=== PATIENT | male | born 1965 | race Caucasian/White ===

== ENCOUNTER 2017-03-04 19:39 | Inpatient (IN) | payer MEDICAID ==
[2017-03-04] MEDS ORDERED: Sodium Chloride 0.9% 1,000 ML IV ONE (19:59)
[2017-03-04 20:01] LABS: BASO % 0.2 % (0.0-2.0); EOS % 0.1 % (0.0-4.0); HEMATOCRIT 21.4 % (35.0-51.0); LYMPH # 1.1 K/uL (1.0-4.3); LYMPH % 10.1 % (20.0-40.0); MEAN CELL VOLUME 92.2 fL (80.0-94.0); MEAN CORPUSCULAR HEMOGLOBIN 29.6 pg (27.0-31.0); MEAN CORPUSCULAR HGB CONC 32.1 g/dL (33.0-37.0); MEAN PLATELET VOLUME 8.9 fL (7.2-11.7); MONO # 0.7 K/uL (0.0-0.8); MONO % 6.6 % (0.0-10.0); NRBC % 0.1 % (0.0-2.0); RED CELL DISTRIBUTION WIDTH 15.6 % (11.5-14.5); WHITE BLOOD COUNT 10.5 K/uL (4.8-10.8)
[2017-03-04] MEDS ORDERED: (Novolin R) Insulin Human Regular 100 units/ml vial IV STA (20:01)
[2017-03-04 20:07] LABS: INR 1.4
[2017-03-04 20:08] LABS: RBC URINE 15 /hpf (0-3); URINE BACTERIA RARE (<OCC); URINE BILIRUBIN NEGATIVE (NEGATIVE); URINE BLOOD 1+ (NEGATIVE); URINE COLOR Yellow (YELLOW); URINE GLUCOSE (UA) 1+ mg/dL (Normal); URINE KETONE NEGATIVE (NEGATIVE); URINE LEUKOCYTE ESTERASE NEG Leu/uL (Negative); URINE PROTEIN NEGATIVE (NEGATIVE); URINE UROBILINOGEN NORMAL mg/dL (0.2-1.0); WBC URINE 12 /hpf (0-5)
[2017-03-04 20:09] LABS: POTASSIUM 5.4 mmol/L (3.6-5.2)
[2017-03-04] MEDS ORDERED: (Novolin R) Insulin Human Regular 100 units/ml vial ONE (20:10)
[2017-03-04 20:11] LABS: BILIRUBIN,TOTAL 0.6 mg/dL (0.2-1.3)
[2017-03-04 20:12] LABS: ALB/GLOB RATIO 0.8 (1.0-2.1); CALCIUM 8.2 mg/dl (8.6-10.4); TOTAL PROTEIN 7.7 g/dL (6.3-8.3)
[2017-03-04 20:28] LABS: MAGNESIUM 1.8 mg/dL (1.6-2.3)
--- NOTE | 2017-03-04 20:37 | C.PDOC ---
History Of Present Illness 53 year old male presents to the ED via EMS for evaluation of shortness of breath which began earlier today. As per EMS, patient called 911 complaining of shortness of breath. Upon medic arrival, patient appeared pale, diaphoretic and collapsed unresponsive in his hallway. Patient's initial rhythm was asystole. Medics performed CPR for 15 minutes and and patient was given three doses of epinephrine intravenously. Patient had return of circulation and his heart rate and blood pressure have been stable since. He remains unresponsive and apneic. He was orally intubated in the field. Additional history limited secondary to patient's critical condition. Patient's past medical/surgical history is unknown at this time. Time Seen by Provider: 03/04/17 19:56 Chief Complaint (Nursing): Cardiac Arrest History Per: EMS Reason For Code Blue: Other (Cardiac Arrest) Circumstances: Brought To ED By EMS Arrest Witnessed By: Other (EMS) CPR Initiated Prior To MD Arrival?: Yes Down-Time Before ACLS: Mins Treatment Initiated Prior To MD Arrival: Yes: CPR, Intubation, IV Access Medications Given Prior To MD Arrival: Yes: Epinephrine - Initial Findings Respirations: Normal Pulse: Strong Rhythm: Sinus Rhythm Past Medical History Reviewed: Historical Data, Nursing Documentation, Vital Signs Vital Signs: Last Vital Signs Temp 93.6 F L 03/04/17 21:42 Pulse 84 03/04/17 21:42 Resp 16 03/04/17 21:42 BP 86/58 L 03/04/17 21:42 Pulse Ox 100 03/04/17 21:52 Family History: States: Unknown Family Hx - Social History Hx Alcohol Use: No Hx Substance Use: No Review Of Systems Review Of Systems: ROS cannot be obtained secondary to pt's inabilty to answer questions. 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 ) ECG Interpretation: Abnormal Interpretation Of ECG: Second EKG done 90 minutes later is unchanged. O2 Sat by Pulse Oximetry: 100 (on RA) Pulse Ox Interpretation: Normal - Radiology CXR: Interpreted by Me CXR Interpretation: Yes: Other (ARDS bilateral patchcy infiltrates) - CT Scan/US CT Head Other Rad Studies (CT/US): Interpreted By Me, Read By Radiologist, Radiology Report Reviewed CT/US Interpretation: EXAM: CT Head Without Intravenous Contrast. CLINICAL HISTORY: 53 years old, male; Signs and symptoms; Coma or unconsciousness; Additional info: Altered mental. status. TECHNIQUE: Axial computed tomography images of the head/brain without intravenous contrast. All CT scans at. this facility use one or more dose reduction techniques, viz.: automated exposure control; ma/kV. adjustment per patient size (including targeted exams where dose is matched to indication; i.e. head);. or iterative reconstruction technique. COMPARISON: No relevant prior studies available. FINDINGS: Brain : The study is limited by motion. No CT evidence of a large territory acute infarction. There are. mild patchy and confluent periventricular and subcortical foci of white matter hypodensity which are. nonspecific and may represent sequela of chronic white matter microvascular ischemic disease.No. acute hemorrhage. Ventricles: No hydrocephalus. Bones/joints: No suspicious focal osseous abnormality. No acute fracture. Sinuses: No acute finding. Mastoid air cells: No acute finding. IMPRESSION: Limited study by motion. No acute hemorrhage. No CT evidence of large territory acute infarction. Chronic white matter microvascular ischemic changes. If there is focal neurological deficits, short. interval followup CT brain is recommended. Progress Note: Bloodwork, CT Head, CXR, EKG, and UA ordered and reviewed. Reevaluation Time: 21:39 Reassessment Condition: Unchanged (Patient remains unresponsive and is having intermittent clonic spasms.) - Physician Consult Information Outcome Of Conversation: Case discussed with Dr Malloy and Dr Dowd. Consideration for hypothermic protocol in question due to possibility of sepsis in this patient. Unsure as to the cause of his arrest. Cultures done and antibiotics administered. Transfusion held at this time per Dr Malloy. Disposition - Disposition Disposition: HOSPITALIZED Disposition Time: 21:46 Condition: CRITICAL - Clinical Impression Clinical Impression: Cardiac arrest, Respiratory failure, Open wound of right foot with complication Critical Care Time - Critical Care Note Total Time (in mins): 90 Documented critical care: time excludes all time spent performing seperately billable procedures. - Scribe Statement The provider has reviewed the documentation as recorded by the Scribe (Concha English) Provider Attestation: All medical record entries made by the Scribe were at my direction and personally dictated by me. I have reviewed the chart and agree that the record accurately reflects my personal performance of the history, physical exam, medical decision making, and the department course for this patient. I have also personally directed, reviewed, and agree with the discharge instructions and disposition.
[2017-03-04 21:10] LABS: ABG ALLEN TEST UNABLE; ABG MECHANICAL RATE 14; ARTERIAL BLOOD GAS MODE A/C; ATERIAL BLOOD GAS PEEP 5; DRAW SITE RR
[2017-03-04] MEDS ORDERED: Sodium Bicarbonate (8.4%) 50 Meq Syringe IVP ONE (21:16)
[2017-03-04] MEDS ORDERED: Sodium Bicarbonate (8.4%) 50 Meq Syringe ONE (21:17)
[2017-03-04] MEDS ORDERED: Sod Polystyrene Sulf 15 gm/60 ml Susp PO ONE (21:22)
--- NOTE | 2017-03-04 21:23 | CP.PCM.HP ---
<Jonatan Vásquezssyca JoesphJohn - Last Filed: 03/04/17 23:17> History of Present Illness - History of Present Illness History of Present Illness: HPI: 53 year old male presents to the ED per ER physician via EMS for shortness of breath which began earlier today. Per ER physician patient called 911 and stated he was having difficulty breathing. Upon medic arrival, patient appeared pale, diaphoretic and collapsed unresponsive in his hallway. Patient's initial rhythm was asystole. Medics performed CPR for 15 minutes and and patient was given three doses of epinephrine intravenously. Patient had return of circulation and his heart rate and blood pressure have been stable since. He was orally intubated in the field and an IO line was placed. Additional history limited secondary to patient's critical condition. Patient's past medical/surgical history is unknown at this time. 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) Review of Systems - Review of Systems Systems not reviewed;Unavailable: Unstable Vital Signs, Intubated Past Patient History - Past Social History Smoking Status: UNKNOWN - PSYCHIATRIC Hx Substance Use: No - SURGICAL HISTORY Hx Surgeries: (UNABLE TO OBTAIN) - ANESTHESIA Hx Anesthesia: (UNABLE TO OBTAIN) Meds Allergies/Adverse Reactions: Allergies Allergy/AdvReac Type Severity Reaction Status Date / Time Unobtainable Allergy Verified 03/04/17 20:17 Physical Exam - Constitutional Appears: In Acute Distress, Other (intubated) - Head Exam Head Exam: ATRAUMATIC, NORMAL INSPECTION, NORMOCEPHALIC - Eye Exam Pupil Exam: Fixed - ENT Exam ENT Exam: Mucous Membranes Dry - Respiratory Exam Respiratory Exam: Decreased Breath Sounds Additional comments: Intubated - Cardiovascular Exam Cardiovascular Exam: REGULAR RHYTHM, +S1, +S2 - GI/Abdominal Exam GI & Abdominal Exam: Hypoactive Bowel Sounds, Soft - Extremities Exam Additional comments: 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 - Skin Additional comments: 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 Results - Vital Signs Recent Vital Signs: Last Vital Signs Temp 95.9 F L 03/04/17 21:01 Pulse 94 H 03/04/17 21:01 Resp 18 03/04/17 21:01 BP 94/60 L 03/04/17 21:01 Pulse Ox 100 03/04/17 21:17 - Labs Result Diagrams: 03/04/17 19:55 03/04/17 19:55 Labs: Laboratory Results - last 24 hr 03/04/17 03/04/17 03/04/17 19:43 19:55 19:55 WBC 10.5 RBC 2.32 L Hgb 6.9 L Hct 21.4 L MCV 92.2 MCH 29.6 MCHC 32.1 L RDW 15.6 H Plt Count 223 MPV 8.9 Neut % (Auto) 83.0 H Lymph % (Auto) 10.1 L Coke % (Auto) 6.6 Eos % (Auto) 0.1 Baso % (Auto) 0.2 Neut # 8.8 H Lymph # 1.1 Coke # 0.7 Eos # 0.0 Baso # 0.0 PT 15.6 H INR 1.4 APTT 31 Puncture Site pCO2 pO2 HCO3 ABG pH ABG Total CO2 ABG O2 Saturation ABG Base Excess Reji Test ABG Potassium A-a O2 Difference Respiratory Index Glucose Lactate Vent Mode Mechanical Rate FiO2 Tidal Volume PEEP Crit Value Called To Crit Value Called By Crit Value Read Back Blood Gas Notified Time Sodium Potassium Chloride Carbon Dioxide Anion Gap BUN Creatinine Est GFR ( Amer) Est GFR (Non-Af Amer) POC Glucose (mg/dL) 400 H* Random Glucose Calcium Magnesium Total Bilirubin AST ALT Alkaline Phosphatase Total Creatine Kinase CK-MB (Mass) Troponin I, Quant NT-Pro-B Natriuret Pep Total Protein Albumin Globulin Albumin/Globulin Ratio Arterial Blood Potassium Urine Color Urine Clarity Urine pH Ur Specific [place] Urine Protein Urine Glucose (UA) Urine Ketones Urine Blood Urine Nitrate Urine Bilirubin Urine Urobilinogen Ur Leukocyte Esterase Urine WBC (Auto) Urine RBC (Auto) Urine Bacteria Urine Opiates Screen Urine Methadone Screen Ur Barbiturates Screen Ur Phencyclidine Scrn Ur Amphetamines Screen U Benzodiazepines Scrn U Oth Cocaine Metabols U Cannabinoids Screen Alcohol, Quantitative Blood Type Blood Type Confirm Antibody Screen 03/04/17 03/04/17 03/04/17 19:55 20:00 20:00 WBC RBC Hgb Hct MCV MCH MCHC RDW Plt Count MPV Neut % (Auto) Lymph % (Auto) Coke % (Auto) Eos % (Auto) Baso % (Auto) Neut # Lymph # Coke # Eos # Baso # PT INR APTT Puncture Site pCO2 pO2 HCO3 ABG pH ABG Total CO2 ABG O2 Saturation ABG Base Excess Reji Test ABG Potassium A-a O2 Difference Respiratory Index Glucose Lactate Vent Mode Mechanical Rate FiO2 Tidal Volume PEEP Crit Value Called To Crit Value Called By Crit Value Read Back Blood Gas Notified Time Sodium 130 L Potassium 5.4 H Chloride 98 Carbon Dioxide 13 L Anion Gap 24 H BUN 45 H Creatinine 2.7 H Est GFR ( Amer) 30 Est GFR (Non-Af Amer) 25 POC Glucose (mg/dL) Random Glucose 346 H Calcium 8.2 L Magnesium Total Bilirubin 0.6 AST 290 H ALT 130 H Alkaline Phosphatase 99 Total Creatine Kinase 122 CK-MB (Mass) 1.25 Troponin I, Quant 0.1990 H* NT-Pro-B Natriuret Pep 73431 H Total Protein 7.7 Albumin 3.4 L Globulin 4.3 H Albumin/Globulin Ratio 0.8 L Arterial Blood Potassium Urine Color Yellow Urine Clarity Hazy Urine pH 5.0 Ur Specific [place] 1.013 Urine Protein Negative Urine Glucose (UA) 1+ H Urine Ketones Negative Urine Blood 1+ H Urine Nitrate Negative Urine Bilirubin Negative Urine Urobilinogen Normal Ur Leukocyte Esterase Neg Urine WBC (Auto) 12 H Urine RBC (Auto) 15 H Urine Bacteria Rare Urine Opiates Screen Negative Urine Methadone Screen Negative Ur Barbiturates Screen Negative Ur Phencyclidine Scrn Negative Ur Amphetamines Screen Negative U Benzodiazepines Scrn Negative U Oth Cocaine Metabols Negative U Cannabinoids Screen Negative Alcohol, Quantitative Blood Type Blood Type Confirm Antibody Screen 03/04/17 03/04/17 03/04/17 20:12 20:15 20:25 WBC RBC Hgb Hct MCV MCH MCHC RDW Plt Count MPV Neut % (Auto) Lymph % (Auto) Coke % (Auto) Eos % (Auto) Baso % (Auto) Neut # Lymph # Coke # Eos # Baso # PT INR APTT Puncture Site pCO2 pO2 HCO3 ABG pH ABG Total CO2 ABG O2 Saturation ABG Base Excess Reji Test ABG Potassium A-a O2 Difference Respiratory Index Glucose Lactate Vent Mode Mechanical Rate FiO2 Tidal Volume PEEP Crit Value Called To Crit Value Called By Crit Value Read Back Blood Gas Notified Time Sodium Potassium Chloride Carbon Dioxide Anion Gap BUN Creatinine Est GFR ( Amer) Est GFR (Non-Af Amer) POC Glucose (mg/dL) Random Glucose Calcium Magnesium 1.8 Total Bilirubin AST ALT Alkaline Phosphatase Total Creatine Kinase 125 CK-MB (Mass) Troponin I, Quant NT-Pro-B Natriuret Pep Total Protein Albumin Globulin Albumin/Globulin Ratio Arterial Blood Potassium Urine Color Urine Clarity Urine pH Ur Specific [place] Urine Protein Urine Glucose (UA) Urine Ketones Urine Blood Urine Nitrate Urine Bilirubin Urine Urobilinogen Ur Leukocyte Esterase Urine WBC (Auto) Urine RBC (Auto) Urine Bacteria Urine Opiates Screen Urine Methadone Screen Ur Barbiturates Screen Ur Phencyclidine Scrn Ur Amphetamines Screen U Benzodiazepines Scrn U Oth Cocaine Metabols U Cannabinoids Screen Alcohol, Quantitative < 10 Blood Type B POSITIVE Blood Type Confirm B POSITIVE Antibody Screen Negative 03/04/17 03/04/17 20:27 21:07 WBC RBC Hgb Hct MCV MCH MCHC RDW Plt Count MPV Neut % (Auto) Lymph % (Auto) Coke % (Auto) Eos % (Auto) Baso % (Auto) Neut # Lymph # Coke # Eos # Baso # PT INR APTT Puncture Site Rr pCO2 41 pO2 94 HCO3 10.6 L ABG pH 7.06 L* ABG Total CO2 12.9 L ABG O2 Saturation 95.7 ABG Base Excess -18.2 L Reji Test Unable ABG Potassium 5.7 H A-a O2 Difference 568.0 Respiratory Index 6.0 Glucose 280 H Lactate 6.7 H* Vent Mode A/c Mechanical Rate 14 FiO2 100.0 Tidal Volume 500 PEEP 5 Crit Value Called To Dr. joseph Crit Value Called By Aquiles talamantes Crit Value Read Back Y Blood Gas Notified Time 2109 Sodium 132.0 Potassium Chloride 105.0 Carbon Dioxide Anion Gap BUN Creatinine Est GFR ( Amer) Est GFR (Non-Af Amer) POC Glucose (mg/dL) 291 H Random Glucose Calcium Magnesium Total Bilirubin AST ALT Alkaline Phosphatase Total Creatine Kinase CK-MB (Mass) Troponin I, Quant NT-Pro-B Natriuret Pep Total Protein Albumin Globulin Albumin/Globulin Ratio Arterial Blood Potassium 5.7 H Urine Color Urine Clarity Urine pH Ur Specific [place] Urine Protein Urine Glucose (UA) Urine Ketones Urine Blood Urine Nitrate Urine Bilirubin Urine Urobilinogen Ur Leukocyte Esterase Urine WBC (Auto) Urine RBC (Auto) Urine Bacteria Urine Opiates Screen Urine Methadone Screen Ur Barbiturates Screen Ur Phencyclidine Scrn Ur Amphetamines Screen U Benzodiazepines Scrn U Oth Cocaine Metabols U Cannabinoids Screen Alcohol, Quantitative Blood Type Blood Type Confirm Antibody Screen Assessment & Plan - Assessment and Plan (Free Text) Assessment: 1.) Asystole Cardiac Arrest - Admit to ICU - ID vs. PE vs. ARDS - f/u head CT - f/u Chest x-ray - BNP: 66638 - Trop: 0.1990 - f/u NATHALIE x2 2.) CHF exacerbation - f/u chest x-ray - Lasix 40mg IV BID hold if SBP less than 105 - Cardio Consult: Dr. Tate --> help appreciated - f/u ECHO 3.) Sepsis - Zosyn 2.25mg IV Q6 - Vancomycin 500mg Q12 - ID Consult: Dr. Noble --> help appreciated - f/u urine and blood cultures 4.) Renal Failure - Acute vs. Chronic - BUN/Cr: 45/2.7 - Nephrology Consult: Dr. Osorio --> help appreciated - Carbon dioxide: 13 - 1 amp of bicarb - given in the ED - daily weights 5.) Altered Mental Status - Neurology Consult: Dr. Rascon --> help appreciated - f/u Head CT - Neuro Checks q1 6.) Acute Anemia - H/H: 6.9/21.4 - Type and Screen - Hold transfusion per ICU attending 7.) Hyperkalemia - K 5.4 - Kayexalte 15gm PO once 8.) Prophylaxis - Protonix 40mg IV daily - Heparin 5,000SC q12 once head CT is cleared - Accuchecks <Noemí BARRAZA,Aristides - Last Filed: 03/05/17 09:05> Results - Vital Signs Recent Vital Signs: Last Vital Signs Temp 95.6 F L 03/05/17 05:05 Pulse 111 H 03/05/17 08:07 Resp 25 H 03/05/17 08:07 BP 132/71 03/05/17 08:08 Pulse Ox 84 L 03/05/17 08:07 - Labs Result Diagrams: 03/04/17 19:55 03/04/17 19:55 Labs: Laboratory Results - last 24 hr 03/04/17 03/04/17 03/04/17 19:43 19:55 19:55 WBC 10.5 RBC 2.32 L Hgb 6.9 L Hct 21.4 L MCV 92.2 MCH 29.6 MCHC 32.1 L RDW 15.6 H Plt Count 223 MPV 8.9 Neut % (Auto) 83.0 H Lymph % (Auto) 10.1 L Coke % (Auto) 6.6 Eos % (Auto) 0.1 Baso % (Auto) 0.2 Neut # 8.8 H Lymph # 1.1 Coke # 0.7 Eos # 0.0 Baso # 0.0 PT 15.6 H INR 1.4 APTT 31 Puncture Site pCO2 pO2 HCO3 ABG pH ABG Total CO2 ABG O2 Saturation ABG Base Excess ABG Hemoglobin ABG Carboxyhemoglobin POC ABG HHb (Measured) ABG Methemoglobin Reji Test ABG Potassium A-a O2 Difference Respiratory Index Hgb O2 Saturation Glucose Lactate Vent Mode Mechanical Rate FiO2 Tidal Volume PEEP Crit Value Called To Crit Value Called By Crit Value Read Back Blood Gas Notified Time Sodium Potassium Chloride Carbon Dioxide Anion Gap BUN Creatinine Est GFR ( Amer) Est GFR (Non-Af Amer) POC Glucose (mg/dL) 400 H* Random Glucose Lactic Acid Calcium Magnesium Total Bilirubin AST ALT Alkaline Phosphatase Total Creatine Kinase CK-MB (Mass) Troponin I Troponin I, Quant NT-Pro-B Natriuret Pep Total Protein Albumin Globulin Albumin/Globulin Ratio Arterial Blood Potassium Urine Color Urine Clarity Urine pH Ur Specific [place] Urine Protein Urine Glucose (UA) Urine Ketones Urine Blood Urine Nitrate Urine Bilirubin Urine Urobilinogen Ur Leukocyte Esterase Urine WBC (Auto) Urine RBC (Auto) Urine Bacteria Urine Opiates Screen Urine Methadone Screen Ur Barbiturates Screen Ur Phencyclidine Scrn Ur Amphetamines Screen U Benzodiazepines Scrn U Oth Cocaine Metabols U Cannabinoids Screen Alcohol, Quantitative Blood Type Blood Type Confirm Antibody Screen 03/04/17 03/04/17 03/04/17 19:55 20:00 20:00 WBC RBC Hgb Hct MCV MCH MCHC RDW Plt Count MPV Neut % (Auto) Lymph % (Auto) Coke % (Auto) Eos % (Auto) Baso % (Auto) Neut # Lymph # Coke # Eos # Baso # PT INR APTT Puncture Site pCO2 pO2 HCO3 ABG pH ABG Total CO2 ABG O2 Saturation ABG Base Excess ABG Hemoglobin ABG Carboxyhemoglobin POC ABG HHb (Measured) ABG Methemoglobin Reji Test ABG Potassium A-a O2 Difference Respiratory Index Hgb O2 Saturation Glucose Lactate Vent Mode Mechanical Rate FiO2 Tidal Volume PEEP Crit Value Called To Crit Value Called By Crit Value Read Back Blood Gas Notified Time Sodium 130 L Potassium 5.4 H Chloride 98 Carbon Dioxide 13 L Anion Gap 24 H BUN 45 H Creatinine 2.7 H Est GFR ( Amer) 30 Est GFR (Non-Af Amer) 25 POC Glucose (mg/dL) Random Glucose 346 H Lactic Acid Calcium 8.2 L Magnesium Total Bilirubin 0.6 AST 290 H ALT 130 H Alkaline Phosphatase 99 Total Creatine Kinase 122 CK-MB (Mass) 1.25 Troponin I Troponin I, Quant 0.1990 H* NT-Pro-B Natriuret Pep 21420 H Total Protein 7.7 Albumin 3.4 L Globulin 4.3 H Albumin/Globulin Ratio 0.8 L Arterial Blood Potassium Urine Color Yellow Urine Clarity Hazy Urine pH 5.0 Ur Specific [place] 1.013 Urine Protein Negative Urine Glucose (UA) 1+ H Urine Ketones Negative Urine Blood 1+ H Urine Nitrate Negative Urine Bilirubin Negative Urine Urobilinogen Normal Ur Leukocyte Esterase Neg Urine WBC (Auto) 12 H Urine RBC (Auto) 15 H Urine Bacteria Rare Urine Opiates Screen Negative Urine Methadone Screen Negative Ur Barbiturates Screen Negative Ur Phencyclidine Scrn Negative Ur Amphetamines Screen Negative U Benzodiazepines Scrn Negative U Oth Cocaine Metabols Negative U Cannabinoids Screen Negative Alcohol, Quantitative Blood Type Blood Type Confirm Antibody Screen 03/04/17 03/04/17 03/04/17 20:12 20:15 20:25 WBC RBC Hgb Hct MCV MCH MCHC RDW Plt Count MPV Neut % (Auto) Lymph % (Auto) Coke % (Auto) Eos % (Auto) Baso % (Auto) Neut # Lymph # Coke # Eos # Baso # PT INR APTT Puncture Site pCO2 pO2 HCO3 ABG pH ABG Total CO2 ABG O2 Saturation ABG Base Excess ABG Hemoglobin ABG Carboxyhemoglobin POC ABG HHb (Measured) ABG Methemoglobin Reji Test ABG Potassium A-a O2 Difference Respiratory Index Hgb O2 Saturation Glucose Lactate Vent Mode Mechanical Rate FiO2 Tidal Volume PEEP Crit Value Called To Crit Value Called By Crit Value Read Back Blood Gas Notified Time Sodium Potassium Chloride Carbon Dioxide Anion Gap BUN Creatinine Est GFR ( Amer) Est GFR (Non-Af Amer) POC Glucose (mg/dL) Random Glucose Lactic Acid Calcium Magnesium 1.8 Total Bilirubin AST ALT Alkaline Phosphatase Total Creatine Kinase 125 CK-MB (Mass) Troponin I Troponin I, Quant NT-Pro-B Natriuret Pep Total Protein Albumin Globulin Albumin/Globulin Ratio Arterial Blood Potassium Urine Color Urine Clarity Urine pH Ur Specific [place] Urine Protein Urine Glucose (UA) Urine Ketones Urine Blood Urine Nitrate Urine Bilirubin Urine Urobilinogen Ur Leukocyte Esterase Urine WBC (Auto) Urine RBC (Auto) Urine Bacteria Urine Opiates Screen Urine Methadone Screen Ur Barbiturates Screen Ur Phencyclidine Scrn Ur Amphetamines Screen U Benzodiazepines Scrn U Oth Cocaine Metabols U Cannabinoids Screen Alcohol, Quantitative < 10 Blood Type B POSITIVE Blood Type Confirm B POSITIVE Antibody Screen Negative 03/04/17 03/04/17 03/05/17 20:27 21:07 03:00 WBC RBC Hgb Hct MCV MCH MCHC RDW Plt Count MPV Neut % (Auto) Lymph % (Auto) Coke % (Auto) Eos % (Auto) Baso % (Auto) Neut # Lymph # Coke # Eos # Baso # PT INR APTT Puncture Site Rr Rradial pCO2 41 42 pO2 94 46 L HCO3 10.6 L 17.1 L ABG pH 7.06 L* 7.22 L ABG Total CO2 12.9 L 18.5 L ABG O2 Saturation 95.7 78.0 L ABG Base Excess -18.2 L -9.7 L ABG Hemoglobin 6.7 L ABG Carboxyhemoglobin 1.7 H POC ABG HHb (Measured) 21.6 H ABG Methemoglobin 0.3 Reji Test Unable Pos ABG Potassium 5.7 H A-a O2 Difference 568.0 615.0 Respiratory Index 6.0 13.4 Hgb O2 Saturation 76.4 L Glucose 280 H Lactate 6.7 H* Vent Mode A/c Prvc Mechanical Rate 14 20 FiO2 100.0 100.0 Tidal Volume 500 400 PEEP 5 Crit Value Called To Dr. joseph Crit Value Called By Aquiles talamantes Crit Value Read Back Y Blood Gas Notified Time 2109 Sodium 132.0 Potassium Chloride 105.0 Carbon Dioxide Anion Gap BUN Creatinine Est GFR ( Amer) Est GFR (Non-Af Amer) POC Glucose (mg/dL) 291 H Random Glucose Lactic Acid Calcium Magnesium Total Bilirubin AST ALT Alkaline Phosphatase Total Creatine Kinase CK-MB (Mass) Troponin I Troponin I, Quant NT-Pro-B Natriuret Pep Total Protein Albumin Globulin Albumin/Globulin Ratio Arterial Blood Potassium 5.7 H Urine Color Urine Clarity Urine pH Ur Specific [place] Urine Protein Urine Glucose (UA) Urine Ketones Urine Blood Urine Nitrate Urine Bilirubin Urine Urobilinogen Ur Leukocyte Esterase Urine WBC (Auto) Urine RBC (Auto) Urine Bacteria Urine Opiates Screen Urine Methadone Screen Ur Barbiturates Screen Ur Phencyclidine Scrn Ur Amphetamines Screen U Benzodiazepines Scrn U Oth Cocaine Metabols U Cannabinoids Screen Alcohol, Quantitative Blood Type Blood Type Confirm Antibody Screen 03/05/17 03/05/17 03/05/17 06:24 06:51 06:51 WBC RBC Hgb Hct MCV MCH MCHC RDW Plt Count MPV Neut % (Auto) Lymph % (Auto) [place]ke % (Auto) Eos % (Auto) Baso % (Auto) Neut # Lymph # [place]ke # Eos # Baso # PT INR APTT Puncture Site pCO2 pO2 HCO3 ABG pH ABG Total CO2 ABG O2 Saturation ABG Base Excess ABG Hemoglobin ABG Carboxyhemoglobin POC ABG HHb (Measured) ABG Methemoglobin Reji Test ABG Potassium A-a O2 Difference Respiratory Index Hgb O2 Saturation Glucose Lactate Vent Mode Mechanical Rate FiO2 Tidal Volume PEEP Crit Value Called To Crit Value Called By Crit Value Read Back Blood Gas Notified Time Sodium Potassium Chloride Carbon Dioxide Anion Gap BUN Creatinine Est GFR ( Amer) Est GFR (Non-Af Amer) POC Glucose (mg/dL) 388 H Random Glucose Lactic Acid 4.2 H* Calcium Magnesium Total Bilirubin AST ALT Alkaline Phosphatase Total Creatine Kinase CK-MB (Mass) Troponin I 0.3180 H* Troponin I, Quant NT-Pro-B Natriuret Pep Total Protein Albumin Globulin Albumin/Globulin Ratio Arterial Blood Potassium Urine Color Urine Clarity Urine pH Ur Specific [place] Urine Protein Urine Glucose (UA) Urine Ketones Urine Blood Urine Nitrate Urine Bilirubin Urine Urobilinogen Ur Leukocyte Esterase Urine WBC (Auto) Urine RBC (Auto) Urine Bacteria Urine Opiates Screen Urine Methadone Screen Ur Barbiturates Screen Ur Phencyclidine Scrn Ur Amphetamines Screen U Benzodiazepines Scrn U Oth Cocaine Metabols U Cannabinoids Screen Alcohol, Quantitative Blood Type Blood Type Confirm Antibody Screen Attending/Attestation - Attestation I have personally seen and examined this patient.: Yes I have fully participated in the care of the patient.: Yes I have reviewed all pertinent clinical information: Yes Notes (Text): -I agree with the above H&P completed by the resident physician with the following additions and/or changes: HPI: The patient is a 52 year old man with a history of NIDDM and HTN who reportedly called EMS himself after developing sudden shortness of breath this evening. Upon arrival of EMS, the patient collapsed into asystolic cardiac arrest, requiring intubation and ACLS protocol in the field. After receiving three doses of epinephrine and being coded for approximately 10-15 minutes in the field, he regained pulses. However, since ROSC, he has remained unresponsive. In the ED, he was noted to be hypothermic, with an elevated WBC, blood glucose lactic acid, serum creatinine and troponin. He was also noted to have a hemoglobin of 6.9 (with no overt signs of bleeding on examination). CXR shows evidence of marked pulmonary edema and congestion and the patient also appears to have an acute left great toe infection. CT-head was negative for acute bleed. After placement of a right femoral venous line by the vehicle fuel systems converter, a hypothermia protocol was initiated. The patient's close friends and roommate arrived at bedside but have limited knowledge regarding the patient's past medical history (except that he was recently [place] [facility] [place]). A few hours after arrival to the ICU, he coded twice more (PEA) and became hypotensive (requiring both Levophed and Dopamine drips). The nature of the patient's critical condition and likely poor prognosis were explained to the family. The patient will be admitted to the ICU at this time with the following acute medical issues listed below. Impression: 1. Asystolic Cardiac Arrest (ddx: ID vs PE) 2. Sepsis Shock (possibly due to left great toe infection) 3. AMS/Unresponsive (post arrest)(ddx: anoxic brain injury vs CVA vs status epilepticus) 4. Renal Failure (acute vs chronic vs acute on chronic) 5. Acute Pulmonary Edema/Congestion 6. Severe Normocytic Anemia 7. Increased Anion Gap Metabolic Acidosis (due to combination of sepsis and/or possible DKA) 8. Hyperglycemia (possible DKA; although ketones were negative on initial UA) 9. Left Great Toe Infection Plan: -empiric IV Zosyn/Vanco (renally dosed) -1unit PRBC tranfusion -Levophed and Dopamine drips -monitor serial trop's and EKG's -2D-echo ordered -bicarbonate drip -blood and urine cultures and procalcitonin level -hypothermia protocol -hourly neuro checks -high-dose Insulin sliding scale (with frequent accu-checks) -empiric IV Keppra -serial ABG's -IV Lasix 40mg Q12hrs (with strict I/O's) -wound care consult for great toe infection management -Protonix and Heparin SC for GI and DVT prophylaxes, respectively -cardiology, I.D., nephrology and neurology have all been consulted 03/05/17 09:05
[2017-03-04] MEDS ORDERED: Vancomycin 1 GM 1 GM/250 ML BAG IVPB ONE (21:35)
[2017-03-04] MEDS: Vancomycin 500mg/D5W 100 ml 500 MG/100 ML BAG IVPB SCH (21:39)
[2017-03-04] MEDS ORDERED: Sod Polystyrene Sulf 15 gm/60 ml Susp ONE (21:47)
[2017-03-04] MEDS ORDERED: Sodium Bicarbonate (8.4%) 50 Meq Syringe IV ONE (23:03)
--- NOTE | 2017-03-04 23:33 | CP.PCM.CON ---
History of Present Illness - History of Present Illness History of Present Illness: PCP: Unknown Reason for Consult: Critical care management Chief complaint: Cardiac Arrest HPI: The hx is obtained from The patient's Sister in Law and after review of the medical records. He is a 52 years old male who lives alone has hx of DM II; Kidney problems HTN, and Recently Discharged from the [facility]. He was brought to the ED after he collapsed with cardiac arrest in Asystole at his home. Apparently he called 911 because he was having difficulty to breath. On their arrival, he opened the door, pale, diaphoretic and collapsed with cardiac arrest inn Asystole. CPR for 15 minutes with 3 doses of Epinephrine was given before Return of circulation. He was intubated on the field and an Interosseos line was placed at the left Tibia. In the ED his Temperature was 94.9F with a pH of 7.06 and lactate of 6.7 with Bicarbonate 10. PMH: HTN; DM II; Kidney disease; MRSA +ve( Narse ?) PSH: Right great toe amputation SH: No illegal drug use; No Alcohol; No Smoking of cigarettes; Live alone; Unemployed FH: Unknown family history Allergies: Unobtainable Review of Systems - Review of Systems Systems not reviewed;Unavailable: Respiratory Distress, Intubated Review of Systems: Review of systems limited because the patient in unconscious. Past Patient History - Past Social History Smoking Status: UNKNOWN Chewing Tobacco Use: No Cigar Use: No Alcohol: None Drugs: Denies Home Situation {Lives}: Alone - CARDIAC Hx Hypertension: Yes - PULMONARY Hx Respiratory Disorders: No - NEUROLOGICAL Hx Neurological Disorder: No - HEENT Hx HEENT Problems: No - RENAL Hx Chronic Kidney Disease: Yes Hx Renal Failure: Yes - ENDOCRINE/METABOLIC Hx Endocrine Disorders: Yes Hx Diabetes Mellitus Type 2: Yes - INTEGUMENTARY Hx Dermatological Problems: Yes - MUSCULOSKELETAL/RHEUMATOLOGICAL Hx Musculoskeletal Disorders: No - GASTROINTESTINAL Hx Gastrointestinal Disorders: No - GENITOURINARY/GYNECOLOGICAL Hx Genitourinary Disorders: No - PSYCHIATRIC Hx Substance Use: No - SURGICAL HISTORY Other/Comment: Great toe left foot amputated - ANESTHESIA Hx Anesthesia: Yes (UNABLE TO OBTAIN) Hx Anesthesia Reactions: No Meds Allergies/Adverse Reactions: Allergies Allergy/AdvReac Type Severity Reaction Status Date / Time Unobtainable Allergy Verified 03/04/17 20:17 - Medications Medications: Current Medications Furosemide (Lasix) 40 mg IVP BID [facility] Piperacillin Sod/Tazobactam Sod (Zosyn 2.25 Gm Iv Premix) 2.25 gm in 50 mls @ 100 mls/hr IVPB Q6H [facility] Vancomycin HCl/Dextrose (Vancocin) 500 mg in 100 mls @ 166.6 mls/hr IVPB Q12H [facility] Stop: 03/09/17 22:31 Last Admin: 03/04/17 21:39 Dose: 166.6 mls/hr Pantoprazole Sodium (Protonix Inj) 40 mg IVP DAILY [facility] Physical Exam - Constitutional Appears: In Acute Distress Additional comments: Intubated - Head Exam Head Exam: ATRAUMATIC, NORMAL INSPECTION, NORMOCEPHALIC - Eye Exam Eye Exam: Normal appearance - ENT Exam ENT Exam: Mucous Membranes Moist, Normal External Ear Exam - Neck Exam Neck exam: Negative for: Lymphadenopathy, Meningismus, Thyromegaly - Respiratory Exam Respiratory Exam: Rales, Rhonchi. absent: Wheezes Additional comments: Rales in whole of both lung shen - Cardiovascular Exam Cardiovascular Exam: REGULAR RHYTHM, +S1, +S2 - GI/Abdominal Exam GI & Abdominal Exam: Normal Bowel Sounds, Soft Additional comments: Full, soft decreased bowel sounds. - Rectal Exam Rectal Exam: Deferred - Extremities Exam Additional comments: Left great toe amputated with surgical wound present. - Back Exam Back exam: NORMAL INSPECTION - Neurological Exam Additional comments: Unresponsive to pain stimuli - Psychiatric Exam Additional comments: Intubated and non-responsive. - Skin Skin Exam: Dry, Pallor Results - Vital Signs Recent Vital Signs: Last Vital Signs Temp 93.6 F L 03/04/17 21:42 Pulse 84 03/04/17 21:42 Resp 16 03/04/17 21:42 BP 86/58 L 03/04/17 21:42 Pulse Ox 100 03/04/17 21:52 - Labs Result Diagrams: 03/04/17 19:55 03/04/17 19:55 Labs: Laboratory Results - last 24 hr 03/04/17 03/04/17 03/04/17 19:43 19:55 19:55 WBC 10.5 RBC 2.32 L Hgb 6.9 L Hct 21.4 L MCV 92.2 MCH 29.6 MCHC 32.1 L RDW 15.6 H Plt Count 223 MPV 8.9 Neut % (Auto) 83.0 H Lymph % (Auto) 10.1 L [place] % (Auto) 6.6 Eos % (Auto) 0.1 Baso % (Auto) 0.2 Neut # 8.8 H Lymph # 1.1 [place] # 0.7 Eos # 0.0 Baso # 0.0 PT 15.6 H INR 1.4 APTT 31 Puncture Site pCO2 pO2 HCO3 ABG pH ABG Total CO2 ABG O2 Saturation ABG Base Excess Reji Test ABG Potassium A-a O2 Difference Respiratory Index Glucose Lactate Vent Mode Mechanical Rate FiO2 Tidal Volume PEEP Crit Value Called To Crit Value Called By Crit Value Read Back Blood Gas Notified Time Sodium Potassium Chloride Carbon Dioxide Anion Gap BUN Creatinine Est GFR ( Amer) Est GFR (Non-Af Amer) POC Glucose (mg/dL) 400 H* Random Glucose Calcium Magnesium Total Bilirubin AST ALT Alkaline Phosphatase Total Creatine Kinase CK-MB (Mass) Troponin I, Quant NT-Pro-B Natriuret Pep Total Protein Albumin Globulin Albumin/Globulin Ratio Arterial Blood Potassium Urine Color Urine Clarity Urine pH Ur Specific [place] Urine Protein Urine Glucose (UA) Urine Ketones Urine Blood Urine Nitrate Urine Bilirubin Urine Urobilinogen Ur Leukocyte Esterase Urine WBC (Auto) Urine RBC (Auto) Urine Bacteria Urine Opiates Screen Urine Methadone Screen Ur Barbiturates Screen Ur Phencyclidine Scrn Ur Amphetamines Screen U Benzodiazepines Scrn U Oth Cocaine Metabols U Cannabinoids Screen Alcohol, Quantitative Blood Type Blood Type Confirm Antibody Screen 03/04/17 03/04/17 03/04/17 19:55 20:00 20:00 WBC RBC Hgb Hct MCV MCH MCHC RDW Plt Count MPV Neut % (Auto) Lymph % (Auto) [place] % (Auto) Eos % (Auto) Baso % (Auto) Neut # Lymph # [place] # Eos # Baso # PT INR APTT Puncture Site pCO2 pO2 HCO3 ABG pH ABG Total CO2 ABG O2 Saturation ABG Base Excess Reji Test ABG Potassium A-a O2 Difference Respiratory Index Glucose Lactate Vent Mode Mechanical Rate FiO2 Tidal Volume PEEP Crit Value Called To Crit Value Called By Crit Value Read Back Blood Gas Notified Time Sodium 130 L Potassium 5.4 H Chloride 98 Carbon Dioxide 13 L Anion Gap 24 H BUN 45 H Creatinine 2.7 H Est GFR ( Amer) 30 Est GFR (Non-Af Amer) 25 POC Glucose (mg/dL) Random Glucose 346 H Calcium 8.2 L Magnesium Total Bilirubin 0.6 AST 290 H ALT 130 H Alkaline Phosphatase 99 Total Creatine Kinase 122 CK-MB (Mass) 1.25 Troponin I, Quant 0.1990 H* NT-Pro-B Natriuret Pep 24658 H Total Protein 7.7 Albumin 3.4 L Globulin 4.3 H Albumin/Globulin Ratio 0.8 L Arterial Blood Potassium Urine Color Yellow Urine Clarity Hazy Urine pH 5.0 Ur Specific [place] 1.013 Urine Protein Negative Urine Glucose (UA) 1+ H Urine Ketones Negative Urine Blood 1+ H Urine Nitrate Negative Urine Bilirubin Negative Urine Urobilinogen Normal Ur Leukocyte Esterase Neg Urine WBC (Auto) 12 H Urine RBC (Auto) 15 H Urine Bacteria Rare Urine Opiates Screen Negative Urine Methadone Screen Negative Ur Barbiturates Screen Negative Ur Phencyclidine Scrn Negative Ur Amphetamines Screen Negative U Benzodiazepines Scrn Negative U Oth Cocaine Metabols Negative U Cannabinoids Screen Negative Alcohol, Quantitative Blood Type Blood Type Confirm Antibody Screen 03/04/17 03/04/17 03/04/17 20:12 20:15 20:25 WBC RBC Hgb Hct MCV MCH MCHC RDW Plt Count MPV Neut % (Auto) Lymph % (Auto) [place] % (Auto) Eos % (Auto) Baso % (Auto) Neut # Lymph # [place] # Eos # Baso # PT INR APTT Puncture Site pCO2 pO2 HCO3 ABG pH ABG Total CO2 ABG O2 Saturation ABG Base Excess Reji Test ABG Potassium A-a O2 Difference Respiratory Index Glucose Lactate Vent Mode Mechanical Rate FiO2 Tidal Volume PEEP Crit Value Called To Crit Value Called By Crit Value Read Back Blood Gas Notified Time Sodium Potassium Chloride Carbon Dioxide Anion Gap BUN Creatinine Est GFR ( Amer) Est GFR (Non-Af Amer) POC Glucose (mg/dL) Random Glucose Calcium Magnesium 1.8 Total Bilirubin AST ALT Alkaline Phosphatase Total Creatine Kinase 125 CK-MB (Mass) Troponin I, Quant NT-Pro-B Natriuret Pep Total Protein Albumin Globulin Albumin/Globulin Ratio Arterial Blood Potassium Urine Color Urine Clarity Urine pH Ur Specific [place] Urine Protein Urine Glucose (UA) Urine Ketones Urine Blood Urine Nitrate Urine Bilirubin Urine Urobilinogen Ur Leukocyte Esterase Urine WBC (Auto) Urine RBC (Auto) Urine Bacteria Urine Opiates Screen Urine Methadone Screen Ur Barbiturates Screen Ur Phencyclidine Scrn Ur Amphetamines Screen U Benzodiazepines Scrn U Oth Cocaine Metabols U Cannabinoids Screen Alcohol, Quantitative < 10 Blood Type B POSITIVE Blood Type Confirm B POSITIVE Antibody Screen Negative 03/04/17 03/04/17 20:27 21:07 WBC RBC Hgb Hct MCV MCH MCHC RDW Plt Count MPV Neut % (Auto) Lymph % (Auto) [place] % (Auto) Eos % (Auto) Baso % (Auto) Neut # Lymph # [place] # Eos # Baso # PT INR APTT Puncture Site Rr pCO2 41 pO2 94 HCO3 10.6 L ABG pH 7.06 L* ABG Total CO2 12.9 L ABG O2 Saturation 95.7 ABG Base Excess -18.2 L Reji Test Unable ABG Potassium 5.7 H A-a O2 Difference 568.0 Respiratory Index 6.0 Glucose 280 H Lactate 6.7 H* Vent Mode A/c Mechanical Rate 14 FiO2 100.0 Tidal Volume 500 PEEP 5 Crit Value Called To Dr. joseph Crit Value Called By Aquiles talamantes Crit Value Read Back Y Blood Gas Notified Time 2109 Sodium 132.0 Potassium Chloride 105.0 Carbon Dioxide Anion Gap BUN Creatinine Est GFR ( Amer) Est GFR (Non-Af Amer) POC Glucose (mg/dL) 291 H Random Glucose Calcium Magnesium Total Bilirubin AST ALT Alkaline Phosphatase Total Creatine Kinase CK-MB (Mass) Troponin I, Quant NT-Pro-B Natriuret Pep Total Protein Albumin Globulin Albumin/Globulin Ratio Arterial Blood Potassium 5.7 H Urine Color Urine Clarity Urine pH Ur Specific [place] Urine Protein Urine Glucose (UA) Urine Ketones Urine Blood Urine Nitrate Urine Bilirubin Urine Urobilinogen Ur Leukocyte Esterase Urine WBC (Auto) Urine RBC (Auto) Urine Bacteria Urine Opiates Screen Urine Methadone Screen Ur Barbiturates Screen Ur Phencyclidine Scrn Ur Amphetamines Screen U Benzodiazepines Scrn U Oth Cocaine Metabols U Cannabinoids Screen Alcohol, Quantitative Blood Type Blood Type Confirm Antibody Screen - Imaging and Cardiology Chest x-ray Status: Image reviewed by me Additional comment: Bilateral interstitial/ Alveolar infiltrate CT scan - head Status: Image reviewed by me, Report reviewed by me Additional comment: No hemorrhage, nor signs of ischemic CVA Assessment & Plan - Assessment and Plan (Free Text) Assessment: #. Cardiac Arrest #. Repiratory Failure #. Pulmonary Edema #. Anemia #. Acute v/s chronic kidney dsease #. DM II #. None healing left great toe amputation Plan: 52 years old male who lives alone has hx of DM II; Kidney problems HTN, and Recently Discharged from the [facility]. He was brought to the ED after he collapsed with cardiac arrest in Asystole at his home. In the Ed His Temp was 94F and he was having frequent muscular spasms. #. Cardiac Arrest. Decision was initially made to begin Hyothermic therapy on the floors but this was cancelled after the patient had Two episodes of Cardiac arrest in Asystole of duration approximately 10minutes each. - Continue Cardiac monitoring and treat Pulmonary edema and respiratory failure - Dopamine and Levophed to maintain MAP above 65 - Consult Neurology #. Repiratory Failure with metabolic acidosis and Lactic acidosis - Mechanical ventilation AC of 20; TV of 400; PEEP of 5 with FiO2 of 1.0 - Bicarbonate Drip #. Sepsis with a qSOFA of 3 with a non healing wound at the left great toe - Wound care - Consult ID - Follow blood culture - Vancomycin - Zosyn #. Pulmonary Edema vs ARDS - Consult Cardiology - Vent settings with low tidal volume 6ml/Kg/min while increasing PEEP as BP tolerates - Grant catheter for Urine output measurement - IV lasix #. Anemia - Transfuse one unit of PRBC - Follow Hb #. Acute v/s chronic kidney disease - Consult Nephrology - Follow Renal labs #. DM II - Regular insulin sliding scale according to accucheck Q6H - HbA1c #. Stress Ulcer Prophylaxis with Pantoprazole #. DVT Prophylaxis with SCD and Heparin Sub Cutaneous #. Code Status: Full Critical care time 50 minutes. - Date & Time Date: 03/04/17 Time: 23:33
--- NOTE | 2017-03-04 23:34 | PCM.PROC ---
Procedures Attestation:: I certify that I have explained the specified Operation(s) or Procedure(s), risks, benefits and reasonable alternatives to the Patient and/or other person responsible. The opportunity was given to ask questions and all questions answered - Central Line Placement Femoral Aseptic technique was employed throughout the procedure: Hand Hygiene done prior to procedure, Full sterile barriers (mask, hair cover, sterile gown, sterile gloves), Full body sterile drape, Chloraprep Antiseptic: 2 minute prep for Femoral CVP Time Out Performed: Yes Pt. Placed on Pulse Ox Monitor: Yes Central Line Prep: Chlorhexidine-Alcohol Combination Local Anesthesia Used: Lidocaine 1% Ultrasound Used for Placement: Yes Central Line Lumen Inserted: triple Post Procedure: Sutured in Place, Good Blood Return, All Ports Aspirated, Flushed, Capped, Sterile Dressing Applied Secured by: Suture Post procedure dressing: Clear vapor permeable Post Procedure X-Ray: No Patient Tolerated Procedure: Well, No Complications (Right Femoral Vein TLC)
[2017-03-05] MEDS ORDERED: Sodium Bicarbonate (8.4%) 50 Meq Syringe IV ONE (00:09)
[2017-03-05 03:19] LABS: ABG ALLEN TEST POS; ABG MECHANICAL RATE 20; ARTERIAL BLOOD GAS MODE PRVC; ARTERIAL BLOOD HGB O2 SAT 76.4 % (95.0-98.0); CARBOXYHEMOGLOBIN 1.7 % (0.5-1.5); DRAW SITE RRADIAL; HHB 21.6 % (0.0-5.0); METHEMOGLOBIN 0.3 % (0.0-3.0)
[2017-03-05] MEDS: levETIRAcetam 500 MG in Sodium Chloride 0.9% 100 ML IVPB SCH ×2 (04:03→14:25)
[2017-03-05] MEDS: Piperacill/Tazo 2.25gm in Dex 2.25 GM/50 ML BAG IVPB SCH ×4 (04:05→22:30)
[2017-03-05] MEDS: DOPamine 400mg/250ml D5W 400 MG/250 ML BAG IV PRN ×2 (07:00→14:45)
[2017-03-05] MEDS: (Novolin R) Insulin Human Regular 100 units/ml vial SC SCH ×4 (07:32→19:00)
--- NOTE | 2017-03-05 08:09 | CT ---
PROCEDURE: CT HEAD WITHOUT CONTRAST. HISTORY: altered mental status COMPARISON: None available. TECHNIQUE: Axial computed tomography images were obtained through the head/brain without intravenous contrast. Radiation dose: Total exam DLP = 988 mGy-cm. This CT exam was performed using one or more of the following dose reduction techniques: Automated exposure control, adjustment of the mA and/or kV according to patient size, and/or use of iterative reconstruction technique. FINDINGS: HEMORRHAGE: No intracranial hemorrhage. BRAIN: Scattered focal lucencies in the subcortical and periventricular white matter suggestive for chronic microvascular ischemic change. VENTRICLES: Unremarkable. No hydrocephalus. CALVARIUM: Unremarkable. PARANASAL SINUSES: Unremarkable as visualized. No significant inflammatory changes. MASTOID AIR CELLS: Unremarkable as visualized. No inflammatory changes. OTHER FINDINGS: Motion artifact limits evaluation. IMPRESSION: Motion artifact limits evaluation. Chronic microvascular ischemic changes. No acute intracranial hemorrhage. If there is focal neurologic deficit, consider further evaluation with MRI. These findings were preliminarily reported at 9:48 p.m. on 03/04/[address] Ada Maldonado from [facility].
[2017-03-05] MEDS ORDERED: Propofol 10 mg/ml 1,000 MG/100 ML VIAL IV PRN (08:18)
[2017-03-05 09:04] LABS: BASO # 0.1 K/uL (0.0-0.2); BASO % 0.4 % (0.0-2.0); HEMATOCRIT 22.9 % (35.0-51.0); LYMPH # 0.4 K/uL (1.0-4.3); LYMPH % 2.1 % (20.0-40.0); MEAN CORPUSCULAR HEMOGLOBIN 30.6 pg (27.0-31.0); MEAN CORPUSCULAR HGB CONC 34.1 g/dL (33.0-37.0); MEAN PLATELET VOLUME 9.4 fL (7.2-11.7); MONO # 0.9 K/uL (0.0-0.8); MONO % 4.6 % (0.0-10.0); PLATELET COUNT 200 K/uL (130-400); RED CELL DISTRIBUTION WIDTH 15.4 % (11.5-14.5)
--- NOTE | 2017-03-05 09:05 | RAD ---
HISTORY: cardiac arrest bed 12 COMPARISON: No prior. FINDINGS: LUNGS: Dense consolidative opacities throughout both lungs suggestive for underlying edema and or infiltrate. Endotracheal tube extending into the mid thoracic trachea. Multiple overlying external tubing and wiring. PLEURA: As above. CARDIOVASCULAR: Cardiomegaly. OSSEOUS STRUCTURES: No significant abnormalities. VISUALIZED UPPER ABDOMEN: Normal. OTHER FINDINGS: None. IMPRESSION: Dense consolidative opacities throughout both lungs suggestive for underlying edema and or infiltrate. Endotracheal tube extending into the mid thoracic trachea. Multiple overlying external tubing and wiring.
[2017-03-05 09:12] LABS: MEAN CELL VOLUME 89.7 fL (80.0-94.0); WHITE BLOOD COUNT 18.6 K/uL (4.8-10.8)
--- NOTE | 2017-03-05 09:14 | RAD ---
HISTORY: Follow up Pulmonary edema/ARDS COMPARISON: 03/04/2017 FINDINGS: LUNGS: Endotracheal tube extending into the midthoracic trachea. NG tube extending into the stomach. Multiple overlying external wires and tubing. Dense consolidative opacifications throughout both lungs suggestive for underlying edema and or infiltrate. PLEURA: As above. CARDIOVASCULAR: Cardiomegaly. OSSEOUS STRUCTURES: No significant abnormalities. VISUALIZED UPPER ABDOMEN: Normal. OTHER FINDINGS: None. IMPRESSION: Endotracheal tube extending into the midthoracic trachea. NG tube extending into the stomach. Multiple overlying external wires and tubing. Dense consolidative opacifications throughout both lungs suggestive for underlying edema and or infiltrate.
[2017-03-05 09:16] LABS: BILIRUBIN,TOTAL 1.5 mg/dL (0.2-1.3)
[2017-03-05 09:17] LABS: ALB/GLOB RATIO 1.1 (1.0-2.1); CALCIUM 7.2 mg/dl (8.6-10.4); PHOSPHOROUS 6.5 mg/dL (2.5-4.5); TOTAL PROTEIN 6.8 g/dL (6.3-8.3)
[2017-03-05 09:18] LABS: MAGNESIUM 1.3 mg/dL (1.6-2.3)
[2017-03-05 09:45] LABS: NEUTROPHIL 90 % (50-75); TOTAL CELLS COUNTED 100
[2017-03-05] MEDS ORDERED: MethylPREDNISolone 40 mg Vial IVP STA (09:55)
[2017-03-05] MEDS ORDERED: Calcium Gluconate 4.65 mEq/10 ml Inj IVP ONE ×2 (09:56→18:03)
[2017-03-05] MEDS ORDERED: Sodium Bicarbonate (8.4%) 50 Meq Syringe IVP ONE ×3 (09:57→18:03)
--- NOTE | 2017-03-05 11:47 | CP.PCM.CON ---
History of Present Illness - History of Present Illness History of Present Illness: 53 year old male presents to the ED via EMS for evaluation of shortness of breath which began earlier today. As per EMS, patient called 911 complaining of shortness of breath. Upon medic arrival, patient appeared pale, diaphoretic and collapsed unresponsive in his hallway. Patient's initial rhythm was asystole. Medics performed CPR for 15 minutes and and patient was given three doses of epinephrine intravenously. Patient had return of circulation and his heart rate and blood pressure have been stable since. He remains unresponsive and apneic. He was orally intubated in the field. Few minutes after the patient arrived at the ICU Unit he went into a second cardiac arrest in asystole. Chest compressions and ACLS protocol instituted with Epinephrine every 3 minutes; Sodium Bicarbonate was given because the patient was known to be acidotic and Hyperkalemic. He regained Pulse after approximately 10minutes. The patient suffered a third episode of cardiac arrest, and again he received chest compressions with IV Epinephrine according to protocol. This also lasted approximately 10 minutes. Dopamine was started because of low blood pressures and to maintain pulses. PCP: Unknown HPI: The hx is obtained from The patient's Sister in Law and after review of the medical records. He is a 52 years old male who lives alone has hx of DM II; Kidney problems HTN, and Recently Discharged from the [facility]. He was brought to the ED after he collapsed with cardiac arrest in Asystole at his home. Apparently he called 911 because he was having difficulty to breath. On their arrival, he opened the door, pale, diaphoretic and collapsed with cardiac arrest inn Asystole. CPR for 15 minutes with 3 doses of Epinephrine was given before Return of circulation. He was intubated on the field and an Interosseos line was placed at the left Tibia. In the ED his Temperature was 94.9F with a pH of 7.06 and lactate of 6.7 with Bicarbonate 10. Review of Systems - Review of Systems Systems not reviewed;Unavailable: Altered Mental Status, Intubated Past Patient History - Past Medical History & Family History Past Medical History?: Yes - Past Social History Smoking Status: UNKNOWN Chewing Tobacco Use: No Cigar Use: No Alcohol: None Drugs: Denies Home Situation {Lives}: Alone - CARDIAC Hx Hypertension: Yes - PULMONARY Hx Respiratory Disorders: No - NEUROLOGICAL Hx Neurological Disorder: No - HEENT Hx HEENT Problems: No - RENAL Hx Chronic Kidney Disease: Yes Hx Renal Failure: Yes - ENDOCRINE/METABOLIC Hx Endocrine Disorders: Yes Hx Diabetes Mellitus Type 2: Yes - INTEGUMENTARY Hx Dermatological Problems: Yes - MUSCULOSKELETAL/RHEUMATOLOGICAL Hx Musculoskeletal Disorders: No - GASTROINTESTINAL Hx Gastrointestinal Disorders: No - GENITOURINARY/GYNECOLOGICAL Hx Genitourinary Disorders: No - PSYCHIATRIC Hx Substance Use: No - SURGICAL HISTORY Other/Comment: Great toe left foot amputated - ANESTHESIA Hx Anesthesia: Yes (UNABLE TO OBTAIN) Hx Anesthesia Reactions: No Meds Allergies/Adverse Reactions: Allergies Allergy/AdvReac Type Severity Reaction Status Date / Time Unobtainable Allergy Verified 03/04/17 20:17 - Medications Medications: Current Medications Albuterol/Ipratropium (Duoneb 3 Mg/0.5 Mg (3 Ml) Ud) 3 ml INH RQ6 TENA Furosemide (Lasix) 40 mg IVP BID [facility] Last Admin: 03/05/17 10:55 Dose: 40 mg Heparin Sodium (Porcine) (Heparin) 5,000 units SC Q8 TENA Last Admin: 03/05/17 07:27 Dose: 5,000 units Piperacillin Sod/Tazobactam Sod (Zosyn 2.25 Gm Iv Premix) 2.25 gm in 50 mls @ 100 mls/hr IVPB Q6H [facility] Last Admin: 03/05/17 10:00 Dose: 100 mls/hr Vancomycin HCl/Dextrose (Vancocin) 500 mg in 100 mls @ 166.6 mls/hr IVPB Q12H [facility] Stop: 03/09/17 22:31 Last Admin: 03/04/17 21:39 Dose: 166.6 mls/hr Dopamine HCl/Dextrose (Dopamine 400mg/250ml D5w) 400 mg in 250 mls @ 14.033 mls /hr IV .[id number] PRN; Protocol; 5 MCG/KG/MIN PRN Reason: TITRATE PER MD ORDER Norepinephrine Bitartrate 8 mg (/ Sodium Chloride) 258 mls @ 7.74 mls/hr IV .Q24H PRN; Protocol; 4 MCG/MIN PRN Reason: TITRATE PER MD ORDER Levetiracetam 500 mg/ Sodium (Chloride) 105 mls @ 420 mls/hr IVPB Q12H [facility] Last Admin: 03/05/17 04:03 Dose: 420 mls/hr Propofol (Diprivan) 1,000 mg in 100 mls @ 2.245 mls/hr IV .Q24H PRN; Protocol; 5 MCG/KG/MIN PRN Reason: TITRATE PER MD ORDER Last Admin: 03/05/17 10:15 Dose: 5 mcg/kg/min, 2.245 mls/hr Insulin Human Regular (Novolin R) 0 unit SC Q6H TENA PRN Reason: Protocol Last Admin: 03/05/17 07:54 Dose: Not Given Lorazepam (Ativan) 1 mg IVP Q2H PRN PRN Reason: Seizure activity Last Admin: 03/05/17 07:26 Dose: 1 mg Pantoprazole Sodium (Protonix Inj) 40 mg IVP DAILY [facility] Last Admin: 03/05/17 11:07 Dose: 40 mg Physical Exam - Constitutional Appears: Toxic, Confused - Head Exam Head Exam: NORMOCEPHALIC - Eye Exam Eye Exam: absent: Scleral icterus - ENT Exam ENT Exam: Mucous Membranes Dry - Neck Exam Neck exam: Negative for: Lymphadenopathy - Respiratory Exam Respiratory Exam: Decreased Breath Sounds, Rhonchi - Cardiovascular Exam Cardiovascular Exam: REGULAR RHYTHM - GI/Abdominal Exam GI & Abdominal Exam: Diminished Bowel Sounds, Distended - Rectal Exam Rectal Exam: Deferred - Exam Exam: NORMAL INSPECTION - Extremities Exam Extremities exam: Positive for: pedal edema Additional comments: amp site right great toe dry - Back Exam Back exam: absent: CVA tenderness (L), CVA tenderness (R) - Neurological Exam Neurological exam: Altered - Psychiatric Exam Psychiatric exam: Depressed - Skin Skin Exam: Dry Results - Vital Signs Recent Vital Signs: Last Vital Signs Temp 96.1 F L 03/05/17 05:50 Pulse 125 H 03/05/17 11:30 Resp 25 H 03/05/17 11:30 BP 118/81 03/05/17 11:23 Pulse Ox 88 L 03/05/17 11:30 - Labs Result Diagrams: 03/05/17 09:00 03/05/17 09:00 Labs: Laboratory Results - last 24 hr 03/04/17 03/04/17 03/04/17 19:43 19:55 19:55 WBC 10.5 RBC 2.32 L Hgb 6.9 L Hct 21.4 L MCV 92.2 MCH 29.6 MCHC 32.1 L RDW 15.6 H Plt Count 223 MPV 8.9 Neut % (Auto) 83.0 H Lymph % (Auto) 10.1 L Armstrong % (Auto) 6.6 Eos % (Auto) 0.1 Baso % (Auto) 0.2 Neut # 8.8 H Lymph # 1.1 Armstrong # 0.7 Eos # 0.0 Baso # 0.0 Neutrophils % (Manual) Band Neutrophils % Lymphocytes % (Manual) Monocytes % (Manual) Platelet Estimate Anisocytosis (manual) PT 15.6 H INR 1.4 APTT 31 Puncture Site pCO2 pO2 HCO3 ABG pH ABG Total CO2 ABG O2 Saturation ABG Base Excess ABG Hemoglobin ABG Carboxyhemoglobin POC ABG HHb (Measured) ABG Methemoglobin Reji Test ABG Potassium A-a O2 Difference Respiratory Index Hgb O2 Saturation Glucose Lactate Vent Mode Mechanical Rate FiO2 Tidal Volume PEEP Crit Value Called To Crit Value Called By Crit Value Read Back Blood Gas Notified Time Sodium Potassium Chloride Carbon Dioxide Anion Gap BUN Creatinine Est GFR ( Amer) Est GFR (Non-Af Amer) POC Glucose (mg/dL) 400 H* Random Glucose Lactic Acid Calcium Phosphorus Magnesium Total Bilirubin AST ALT Alkaline Phosphatase Total Creatine Kinase CK-MB (Mass) Troponin I Troponin I, Quant NT-Pro-B Natriuret Pep Total Protein Albumin Globulin Albumin/Globulin Ratio Procalcitonin Arterial Blood Potassium Urine Color Urine Clarity Urine pH Ur Specific Wagoner Urine Protein Urine Glucose (UA) Urine Ketones Urine Blood Urine Nitrate Urine Bilirubin Urine Urobilinogen Ur Leukocyte Esterase Urine WBC (Auto) Urine RBC (Auto) Urine Bacteria Urine Opiates Screen Urine Methadone Screen Ur Barbiturates Screen Ur Phencyclidine Scrn Ur Amphetamines Screen U Benzodiazepines Scrn U Oth Cocaine Metabols U Cannabinoids Screen Alcohol, Quantitative Blood Type Blood Type Confirm Antibody Screen 03/04/17 03/04/17 03/04/17 19:55 20:00 20:00 WBC RBC Hgb Hct MCV MCH MCHC RDW Plt Count MPV Neut % (Auto) Lymph % (Auto) Armstrong % (Auto) Eos % (Auto) Baso % (Auto) Neut # Lymph # Armstrong # Eos # Baso # Neutrophils % (Manual) Band Neutrophils % Lymphocytes % (Manual) Monocytes % (Manual) Platelet Estimate Anisocytosis (manual) PT INR APTT Puncture Site pCO2 pO2 HCO3 ABG pH ABG Total CO2 ABG O2 Saturation ABG Base Excess ABG Hemoglobin ABG Carboxyhemoglobin POC ABG HHb (Measured) ABG Methemoglobin Reji Test ABG Potassium A-a O2 Difference Respiratory Index Hgb O2 Saturation Glucose Lactate Vent Mode Mechanical Rate FiO2 Tidal Volume PEEP Crit Value Called To Crit Value Called By Crit Value Read Back Blood Gas Notified Time Sodium 130 L Potassium 5.4 H Chloride 98 Carbon Dioxide 13 L Anion Gap 24 H BUN 45 H Creatinine 2.7 H Est GFR ( Amer) 30 Est GFR (Non-Af Amer) 25 POC Glucose (mg/dL) Random Glucose 346 H Lactic Acid Calcium 8.2 L Phosphorus Magnesium Total Bilirubin 0.6 AST 290 H ALT 130 H Alkaline Phosphatase 99 Total Creatine Kinase 122 CK-MB (Mass) 1.25 Troponin I Troponin I, Quant 0.1990 H* NT-Pro-B Natriuret Pep 31784 H Total Protein 7.7 Albumin 3.4 L Globulin 4.3 H Albumin/Globulin Ratio 0.8 L Procalcitonin Arterial Blood Potassium Urine Color Yellow Urine Clarity Hazy Urine pH 5.0 Ur Specific Wagoner 1.013 Urine Protein Negative Urine Glucose (UA) 1+ H Urine Ketones Negative Urine Blood 1+ H Urine Nitrate Negative Urine Bilirubin Negative Urine Urobilinogen Normal Ur Leukocyte Esterase Neg Urine WBC (Auto) 12 H Urine RBC (Auto) 15 H Urine Bacteria Rare Urine Opiates Screen Negative Urine Methadone Screen Negative Ur Barbiturates Screen Negative Ur Phencyclidine Scrn Negative Ur Amphetamines Screen Negative U Benzodiazepines Scrn Negative U Oth Cocaine Metabols Negative U Cannabinoids Screen Negative Alcohol, Quantitative Blood Type Blood Type Confirm Antibody Screen 03/04/17 03/04/17 03/04/17 20:12 20:15 20:25 WBC RBC Hgb Hct MCV MCH MCHC RDW Plt Count MPV Neut % (Auto) Lymph % (Auto) Armstrong % (Auto) Eos % (Auto) Baso % (Auto) Neut # Lymph # Armstrong # Eos # Baso # Neutrophils % (Manual) Band Neutrophils % Lymphocytes % (Manual) Monocytes % (Manual) Platelet Estimate Anisocytosis (manual) PT INR APTT Puncture Site pCO2 pO2 HCO3 ABG pH ABG Total CO2 ABG O2 Saturation ABG Base Excess ABG Hemoglobin ABG Carboxyhemoglobin POC ABG HHb (Measured) ABG Methemoglobin Reji Test ABG Potassium A-a O2 Difference Respiratory Index Hgb O2 Saturation Glucose Lactate Vent Mode Mechanical Rate FiO2 Tidal Volume PEEP Crit Value Called To Crit Value Called By Crit Value Read Back Blood Gas Notified Time Sodium Potassium Chloride Carbon Dioxide Anion Gap BUN Creatinine Est GFR ( Amer) Est GFR (Non-Af Amer) POC Glucose (mg/dL) Random Glucose Lactic Acid Calcium Phosphorus Magnesium 1.8 Total Bilirubin AST ALT Alkaline Phosphatase Total Creatine Kinase 125 CK-MB (Mass) Troponin I Troponin I, Quant NT-Pro-B Natriuret Pep Total Protein Albumin Globulin Albumin/Globulin Ratio Procalcitonin Arterial Blood Potassium Urine Color Urine Clarity Urine pH Ur Specific Wagoner Urine Protein Urine Glucose (UA) Urine Ketones Urine Blood Urine Nitrate Urine Bilirubin Urine Urobilinogen Ur Leukocyte Esterase Urine WBC (Auto) Urine RBC (Auto) Urine Bacteria Urine Opiates Screen Urine Methadone Screen Ur Barbiturates Screen Ur Phencyclidine Scrn Ur Amphetamines Screen U Benzodiazepines Scrn U Oth Cocaine Metabols U Cannabinoids Screen Alcohol, Quantitative < 10 Blood Type B POSITIVE Blood Type Confirm B POSITIVE Antibody Screen Negative 03/04/17 03/04/17 03/05/17 20:27 21:07 03:00 WBC RBC Hgb Hct MCV MCH MCHC RDW Plt Count MPV Neut % (Auto) Lymph % (Auto) Armstrong % (Auto) Eos % (Auto) Baso % (Auto) Neut # Lymph # Armstrong # Eos # Baso # Neutrophils % (Manual) Band Neutrophils % Lymphocytes % (Manual) Monocytes % (Manual) Platelet Estimate Anisocytosis (manual) PT INR APTT Puncture Site Rr Rradial pCO2 41 42 pO2 94 46 L HCO3 10.6 L 17.1 L ABG pH 7.06 L* 7.22 L ABG Total CO2 12.9 L 18.5 L ABG O2 Saturation 95.7 78.0 L ABG Base Excess -18.2 L -9.7 L ABG Hemoglobin 6.7 L ABG Carboxyhemoglobin 1.7 H POC ABG HHb (Measured) 21.6 H ABG Methemoglobin 0.3 Reji Test Unable Pos ABG Potassium 5.7 H A-a O2 Difference 568.0 615.0 Respiratory Index 6.0 13.4 Hgb O2 Saturation 76.4 L Glucose 280 H Lactate 6.7 H* Vent Mode A/c Prvc Mechanical Rate 14 20 FiO2 100.0 100.0 Tidal Volume 500 400 PEEP 5 Crit Value Called To Dr. joseph Crit Value Called By Aquiles talamantes Crit Value Read Back Y Blood Gas Notified Time 2109 Sodium 132.0 Potassium Chloride 105.0 Carbon Dioxide Anion Gap BUN Creatinine Est GFR ( Amer) Est GFR (Non-Af Amer) POC Glucose (mg/dL) 291 H Random Glucose Lactic Acid Calcium Phosphorus Magnesium Total Bilirubin AST ALT Alkaline Phosphatase Total Creatine Kinase CK-MB (Mass) Troponin I Troponin I, Quant NT-Pro-B Natriuret Pep Total Protein Albumin Globulin Albumin/Globulin Ratio Procalcitonin Arterial Blood Potassium 5.7 H Urine Color Urine Clarity Urine pH Ur Specific Wagoner Urine Protein Urine Glucose (UA) Urine Ketones Urine Blood Urine Nitrate Urine Bilirubin Urine Urobilinogen Ur Leukocyte Esterase Urine WBC (Auto) Urine RBC (Auto) Urine Bacteria Urine Opiates Screen Urine Methadone Screen Ur Barbiturates Screen Ur Phencyclidine Scrn Ur Amphetamines Screen U Benzodiazepines Scrn U Oth Cocaine Metabols U Cannabinoids Screen Alcohol, Quantitative Blood Type Blood Type Confirm Antibody Screen 03/05/17 03/05/17 03/05/17 06:24 06:51 06:51 WBC RBC Hgb Hct MCV MCH MCHC RDW Plt Count MPV Neut % (Auto) Lymph % (Auto) Armstrong % (Auto) Eos % (Auto) Baso % (Auto) Neut # Lymph # Armstrong # Eos # Baso # Neutrophils % (Manual) Band Neutrophils % Lymphocytes % (Manual) Monocytes % (Manual) Platelet Estimate Anisocytosis (manual) PT INR APTT Puncture Site pCO2 pO2 HCO3 ABG pH ABG Total CO2 ABG O2 Saturation ABG Base Excess ABG Hemoglobin ABG Carboxyhemoglobin POC ABG HHb (Measured) ABG Methemoglobin Reji Test ABG Potassium A-a O2 Difference Respiratory Index Hgb O2 Saturation Glucose Lactate Vent Mode Mechanical Rate FiO2 Tidal Volume PEEP Crit Value Called To Crit Value Called By Crit Value Read Back Blood Gas Notified Time Sodium Potassium Chloride Carbon Dioxide Anion Gap BUN Creatinine Est GFR ( Amer) Est GFR (Non-Af Amer) POC Glucose (mg/dL) 388 H Random Glucose Lactic Acid 4.2 H* Calcium Phosphorus Magnesium Total Bilirubin AST ALT Alkaline Phosphatase Total Creatine Kinase CK-MB (Mass) Troponin I 0.3180 H* Troponin I, Quant NT-Pro-B Natriuret Pep Total Protein Albumin Globulin Albumin/Globulin Ratio Procalcitonin Arterial Blood Potassium Urine Color Urine Clarity Urine pH Ur Specific Wagoner Urine Protein Urine Glucose (UA) Urine Ketones Urine Blood Urine Nitrate Urine Bilirubin Urine Urobilinogen Ur Leukocyte Esterase Urine WBC (Auto) Urine RBC (Auto) Urine Bacteria Urine Opiates Screen Urine Methadone Screen Ur Barbiturates Screen Ur Phencyclidine Scrn Ur Amphetamines Screen U Benzodiazepines Scrn U Oth Cocaine Metabols U Cannabinoids Screen Alcohol, Quantitative Blood Type Blood Type Confirm Antibody Screen 03/05/17 03/05/17 03/05/17 09:00 09:00 09:00 WBC 18.6 H D RBC 2.55 L Hgb 7.8 L Hct 22.9 L MCV 89.7 D MCH 30.6 MCHC 34.1 RDW 15.4 H Plt Count 200 MPV 9.4 Neut % (Auto) 92.9 H Lymph % (Auto) 2.1 L Armstrong % (Auto) 4.6 Eos % (Auto) 0.0 Baso % (Auto) 0.4 Neut # 17.3 H Lymph # 0.4 L Armstrong # 0.9 H Eos # 0.0 Baso # 0.1 Neutrophils % (Manual) 90 H Band Neutrophils % 5 H Lymphocytes % (Manual) 2 L Monocytes % (Manual) 3 Platelet Estimate Normal Anisocytosis (manual) Slight PT INR APTT Puncture Site pCO2 pO2 HCO3 ABG pH ABG Total CO2 ABG O2 Saturation ABG Base Excess ABG Hemoglobin ABG Carboxyhemoglobin POC ABG HHb (Measured) ABG Methemoglobin Reji Test ABG Potassium A-a O2 Difference Respiratory Index Hgb O2 Saturation Glucose Lactate Vent Mode Mechanical Rate FiO2 Tidal Volume PEEP Crit Value Called To Crit Value Called By Crit Value Read Back Blood Gas Notified Time Sodium 130 L Potassium 7.0 H* D Chloride 97 L Carbon Dioxide 22 Anion Gap 18 BUN 54 H Creatinine 2.6 H Est GFR ( Amer) 32 Est GFR (Non-Af Amer) 26 POC Glucose (mg/dL) Random Glucose 337 H Lactic Acid Calcium 7.2 L Phosphorus 6.5 H Magnesium 1.3 L Total Bilirubin 1.5 H AST 966 H D ALT 302 H D Alkaline Phosphatase 112 Total Creatine Kinase CK-MB (Mass) Troponin I Troponin I, Quant NT-Pro-B Natriuret Pep Total Protein 6.8 Albumin 3.5 Globulin 3.3 Albumin/Globulin Ratio 1.1 Procalcitonin 1.65 H Arterial Blood Potassium Urine Color Urine Clarity Urine pH Ur Specific Wagoner Urine Protein Urine Glucose (UA) Urine Ketones Urine Blood Urine Nitrate Urine Bilirubin Urine Urobilinogen Ur Leukocyte Esterase Urine WBC (Auto) Urine RBC (Auto) Urine Bacteria Urine Opiates Screen Urine Methadone Screen Ur Barbiturates Screen Ur Phencyclidine Scrn Ur Amphetamines Screen U Benzodiazepines Scrn U Oth Cocaine Metabols U Cannabinoids Screen Alcohol, Quantitative Blood Type Blood Type Confirm Antibody Screen Assessment & Plan (1) Cardiac arrest Status: Acute (2) Open wound of right foot with complication Status: Acute (3) Respiratory failure Status: Acute - Assessment and Plan (Free Text) Assessment: r/o sepsis as precipitating factor await blood cultures grave prognosis
--- NOTE | 2017-03-05 12:58 | CP.CCUPN ---
CCU Subjective - Physician Review Subjective (Free Text): Patient seen and examined at bedside. ROS unobtainable due to patient's current clinical status. CCU Objective - Vital Signs / Intake & Output Vital Signs (Last 4 hours): Vital Signs Pulse Resp BP Pulse Ox 03/05/17 11:30 125 H 25 H 88 L 03/05/17 11:23 128 H 19 118/81 87 L 03/05/17 11:15 126 H 24 86 L 03/05/17 11:08 121 H 21 111/80 87 L 03/05/17 11:00 120 H 22 87 L 03/05/17 10:55 107/56 L 03/05/17 10:53 117 H 27 H 116/91 H 85 L 03/05/17 10:45 122 H 28 H 85 L 03/05/17 10:38 123 H 25 H 116/73 87 L 03/05/17 10:30 123 H 27 H 86 L 03/05/17 10:24 123 H 28 H 114/74 86 L 03/05/17 10:15 123 H 25 H 84 L 03/05/17 10:08 121 H 27 H 125/71 84 L 03/05/17 10:00 120 H 25 H 83 L 03/05/17 09:53 120 H 27 H 124/73 82 L 03/05/17 09:45 118 H 26 H 83 L 03/05/17 09:38 119 H 25 H 117/78 84 L 03/05/17 09:30 119 H 28 H 86 L 03/05/17 09:23 119 H 27 H 125/75 83 L 03/05/17 09:15 118 H 26 H 84 L 03/05/17 09:08 120 H 26 H 119/75 82 L 03/05/17 09:00 118 H 28 H 83 L Intake and Output (Last 8hrs): Intake & Output 03/04/17 03/05/17 03/05/17 22:59 06:59 14:59 Intake Total 2026.3 534.9 Output Total 600 100 Balance 1426.3 434.9 Weight 165 lb 179 lb 0.246 oz Intake: Intake, IV Amount 1651.3 209.9 Right Antecubital 1000 Right Distal Port Femoral 56.2 Right Femoral 651.3 144.1 Right Medial Port Femoral 9.6 Blood Product 375 325 Red Blood Cells Cpd As1 0 325 Lr Unit [id number] Output: Urine 600 100 Urethral ([place]ipson) 600 100 Other: Voiding Method Indwelling Catheter # Bowel Movements 1 - Physical Exam Physical Exam Limitations: Positive for: Other (Intubated) Head: Positive for: Atraumatic, Normocephalic Mouth: Positive for: Moist Mucous Membranes Respiratory/Chest: Positive for: Rales Cardiovascular: Positive for: Regular Rate and Rhythm, Normal S1, S2 Abdomen: Negative for: Distention Lower Extremity: Positive for: Other (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 Negative for: Alert, Oriented x 3 - Medications Active Medications: Active Medications Generic Name Dose Route Start Last Admin Trade Name Freq PRN Reason Stop Dose Admin Albuterol/Ipratropium 3 ml 03/05/17 14:00 Duoneb 3 Mg/0.5 Mg (3 Ml) Ud INH RQ6 TENA Furosemide 40 mg 03/04/17 23:20 03/05/17 10:55 Lasix IVP 40 mg BID TENA Administration Heparin Sodium (Porcine) 5,000 units 03/05/17 06:00 03/05/17 07:27 Heparin SC 5,000 units Q8 TENA Administration Piperacillin Sod/Tazobactam Sod 2.25 gm in 50 mls @ 100 mls/hr 03/04/17 21:30 03/05/17 10:00 Zosyn 2.25 Gm Iv Premix IVPB 100 mls/hr Q6H TENA Administration Vancomycin HCl/Dextrose 500 mg in 100 mls @ 166.6 mls/hr 03/04/17 22:30 03/04 21:39 Vancocin IVPB 03/09/17 22:31 166.6 mls/hr Q12H TENA Administration Dopamine HCl/Dextrose 400 mg in 250 mls @ 14.033 mls/hr 03/05/17 00:22 Dopamine 400mg/250ml D5w IV .[id number] PRN TITRATE PER MD ORDER Protocol 5 MCG/KG/MIN Norepinephrine Bitartrate 8 mg 258 mls @ 7.74 mls/hr 03/05/17 01:00 / Sodium Chloride IV .Q24H PRN TITRATE PER MD ORDER Protocol 4 MCG/MIN Levetiracetam 500 mg/ Sodium 105 mls @ 420 mls/hr 03/05/17 02:45 03/05/17 04: 03 Chloride IVPB 420 mls/hr Q12H TENA Administration Propofol 1,000 mg in 100 mls @ 2.245 mls/hr 03/05/17 08:18 03/05/17 10:15 Diprivan IV 5 mcg/kg/min .Q24H PRN 2.245 mls/hr TITRATE PER MD ORDER Administration Protocol 5 MCG/KG/MIN Vancomycin HCl 1 gm/ Sodium 250 mls @ 166.7 mls/hr 03/05/17 12:00 Chloride IVPB 03/05/17 13:29 ONCE ONE Azithromycin 500 mg/ Sodium 250 mls @ 250 mls/hr 03/05/17 13:00 Chloride IVPB DAILY TENA Insulin Human Regular 0 unit 03/05/17 00:45 03/05/17 07:54 Novolin R SC Not Given Q6H TENA Protocol Lorazepam 1 mg 03/05/17 00:57 03/05/17 07:26 Ativan IVP 1 mg Q2H PRN Administration Seizure activity Pantoprazole Sodium 40 mg 03/05/17 10:00 03/05/17 11:07 Protonix Inj IVP 40 mg DAILY TENA Administration - Patient Studies Lab Studies: Lab Studies 03/05/17 03/05/17 03/05/17 Range/Units 09:00 09:00 09:00 WBC 18.6 H D (4.8-10.8) K/uL RBC 2.55 L (4.40-5.90) Mil/uL Hgb 7.8 L (12.0-18.0) g/dL Hct 22.9 L (35.0-51.0) % MCV 89.7 D (80.0-94.0) fL MCH 30.6 (27.0-31.0) pg MCHC 34.1 (33.0-37.0) g/dL RDW 15.4 H (11.5-14.5) % Plt Count 200 (130-400) K/uL MPV 9.4 (7.2-11.7) fL Neut % (Auto) 92.9 H (50.0-75.0) % Lymph % (Auto) 2.1 L (20.0-40.0) % Sawyer % (Auto) 4.6 (0.0-10.0) % Eos % (Auto) 0.0 (0.0-4.0) % Baso % (Auto) 0.4 (0.0-2.0) % Neut # 17.3 H (1.8-7.0) K/uL Lymph # 0.4 L (1.0-4.3) K/uL Sawyer # 0.9 H (0.0-0.8) K/uL Eos # 0.0 (0.0-0.7) K/uL Baso # 0.1 (0.0-0.2) K/uL Neutrophils % (Manual) 90 H (50-75) % Band Neutrophils % 5 H (0-2) % Lymphocytes % (Manual) 2 L (20-40) % Monocytes % (Manual) 3 (0-10) % Platelet Estimate Normal (NORMAL) Anisocytosis (manual) Slight PT (9.7-12.2) SECONDS INR APTT (21-34) SECONDS Puncture Site pCO2 (35-45) mm/Hg pO2 (80-100) mm/Hg HCO3 (21-28) mmol/L ABG pH (7.35-7.45) ABG Total CO2 (22-28) mmol/L ABG O2 Saturation (95-98) % ABG Base Excess (-2.0-3.0) mmol/L ABG Hemoglobin (11.7-17.4) g/dL ABG Carboxyhemoglobin (0.5-1.5) % POC ABG HHb (Measured) (0.0-5.0) % ABG Methemoglobin (0.0-3.0) % Reji Test ABG Potassium (3.6-5.2) mmol/L A-a O2 Difference mm/Hg Respiratory Index Hgb O2 Saturation (95.0-98.0) % Glucose (75-110) mg/dl Lactate (0.7-2.1) mmol/L Vent Mode Mechanical Rate FiO2 % Tidal Volume PEEP Crit Value Called To Crit Value Called By Crit Value Read Back Blood Gas Notified Time Sodium 130 L (132-148) mmol/L Potassium 7.0 H* D (3.6-5.2) mmol/L Chloride 97 L (98-107) mmol/L Carbon Dioxide 22 (22-30) mmol/L Anion Gap 18 (10-20) BUN 54 H (9-20) mg/dL Creatinine 2.6 H (0.8-1.5) mg/dL Est GFR ( Amer) 32 Est GFR (Non-Af Amer) 26 POC Glucose (mg/dL) (65-110) mg/dL Random Glucose 337 H (75-110) mg/dL Lactic Acid (0.7-2.1) mmol/L Calcium 7.2 L (8.6-10.4) mg/dl Phosphorus 6.5 H (2.5-4.5) mg/dL Magnesium 1.3 L (1.6-2.3) mg/dL Total Bilirubin 1.5 H (0.2-1.3) mg/dL AST 966 H D (17-59) U/L ALT 302 H D (21-72) U/L Alkaline Phosphatase 112 (38-126) U/L Total Creatine Kinase (55-170) U/L CK-MB (Mass) (0.0-3.38) ng/mL Troponin I (0.00-0.120) ng/mL Troponin I, Quant (0.00-0.120) ng/mL NT-Pro-B Natriuret Pep (0-900) pg/mL Total Protein 6.8 (6.3-8.3) g/dL Albumin 3.5 (3.5-5.0) g/dL Globulin 3.3 (2.2-3.9) gm/dL Albumin/Globulin Ratio 1.1 (1.0-2.1) Procalcitonin 1.65 H (0.19-0.49) NG/ML Arterial Blood Potassium (3.6-5.2) mmol/L Urine Color (YELLOW) Urine Clarity (Clear) Urine pH (5.0-8.0) Ur Specific [place] (1.003-1.030) Urine Protein (NEGATIVE) mg/dL Urine Glucose (UA) (Normal) mg/dL Urine Ketones (NEGATIVE) mg/dL Urine Blood (NEGATIVE) Urine Nitrate (NEGATIVE) Urine Bilirubin (NEGATIVE) Urine Urobilinogen (0.2-1.0) mg/dL Ur Leukocyte Esterase (Negative) Mika/uL Urine WBC (Auto) (0-5) /hpf Urine RBC (Auto) (0-3) /hpf Urine Bacteria (<OCC) Urine Opiates Screen (NEGATIVE) Urine Methadone Screen (NEGATIVE) Ur Barbiturates Screen (NEGATIVE) Ur Phencyclidine Scrn (NEGATIVE) Ur Amphetamines Screen (NEGATIVE) U Benzodiazepines Scrn (NEGATIVE) U Oth Cocaine Metabols (NEGATIVE) U Cannabinoids Screen (NEGATIVE) Alcohol, Quantitative (0-10) mg/dl Blood Type Blood Type Confirm Antibody Screen 03/05/17 03/05/17 03/05/17 Range/Units 06:51 06:51 06:24 WBC (4.8-10.8) K/uL RBC (4.40-5.90) Mil/uL Hgb (12.0-18.0) g/dL Hct (35.0-51.0) % MCV (80.0-94.0) fL MCH (27.0-31.0) pg MCHC (33.0-37.0) g/dL RDW (11.5-14.5) % Plt Count (130-400) K/uL MPV (7.2-11.7) fL Neut % (Auto) (50.0-75.0) % Lymph % (Auto) (20.0-40.0) % Sawyer % (Auto) (0.0-10.0) % Eos % (Auto) (0.0-4.0) % Baso % (Auto) (0.0-2.0) % Neut # (1.8-7.0) K/uL Lymph # (1.0-4.3) K/uL [place]yer # (0.0-0.8) K/uL Eos # (0.0-0.7) K/uL Baso # (0.0-0.2) K/uL Neutrophils % (Manual) (50-75) % Band Neutrophils % (0-2) % Lymphocytes % (Manual) (20-40) % Monocytes % (Manual) (0-10) % Platelet Estimate (NORMAL) Anisocytosis (manual) PT (9.7-12.2) SECONDS INR APTT (21-34) SECONDS Puncture Site pCO2 (35-45) mm/Hg pO2 (80-100) mm/Hg HCO3 (21-28) mmol/L ABG pH (7.35-7.45) ABG Total CO2 (22-28) mmol/L ABG O2 Saturation (95-98) % ABG Base Excess (-2.0-3.0) mmol/L ABG Hemoglobin (11.7-17.4) g/dL ABG Carboxyhemoglobin (0.5-1.5) % POC ABG HHb (Measured) (0.0-5.0) % ABG Methemoglobin (0.0-3.0) % Reji Test ABG Potassium (3.6-5.2) mmol/L A-a O2 Difference mm/Hg Respiratory Index Hgb O2 Saturation (95.0-98.0) % Glucose (75-110) mg/dl Lactate (0.7-2.1) mmol/L Vent Mode Mechanical Rate FiO2 % Tidal Volume PEEP Crit Value Called To Crit Value Called By Crit Value Read Back Blood Gas Notified Time Sodium (132-148) mmol/L Potassium (3.6-5.2) mmol/L Chloride (98-107) mmol/L Carbon Dioxide (22-30) mmol/L Anion Gap (10-20) BUN (9-20) mg/dL Creatinine (0.8-1.5) mg/dL Est GFR ( Amer) Est GFR (Non-Af Amer) POC Glucose (mg/dL) 388 H (65-110) mg/dL Random Glucose (75-110) mg/dL Lactic Acid 4.2 H* (0.7-2.1) mmol/L Calcium (8.6-10.4) mg/dl Phosphorus (2.5-4.5) mg/dL Magnesium (1.6-2.3) mg/dL Total Bilirubin (0.2-1.3) mg/dL AST (17-59) U/L ALT (21-72) U/L Alkaline Phosphatase (38-126) U/L Total Creatine Kinase (55-170) U/L CK-MB (Mass) (0.0-3.38) ng/mL Troponin I 0.3180 H* (0.00-0.120) ng/mL Troponin I, Quant (0.00-0.120) ng/mL NT-Pro-B Natriuret Pep (0-900) pg/mL Total Protein (6.3-8.3) g/dL Albumin (3.5-5.0) g/dL Globulin (2.2-3.9) gm/dL Albumin/Globulin Ratio (1.0-2.1) Procalcitonin (0.19-0.49) NG/ML Arterial Blood Potassium (3.6-5.2) mmol/L Urine Color (YELLOW) Urine Clarity (Clear) Urine pH (5.0-8.0) Ur Specific [place] (1.003-1.030) Urine Protein (NEGATIVE) mg/dL Urine Glucose (UA) (Normal) mg/dL Urine Ketones (NEGATIVE) mg/dL Urine Blood (NEGATIVE) Urine Nitrate (NEGATIVE) Urine Bilirubin (NEGATIVE) Urine Urobilinogen (0.2-1.0) mg/dL Ur Leukocyte Esterase (Negative) Mika/uL Urine WBC (Auto) (0-5) /hpf Urine RBC (Auto) (0-3) /hpf Urine Bacteria (<OCC) Urine Opiates Screen (NEGATIVE) Urine Methadone Screen (NEGATIVE) Ur Barbiturates Screen (NEGATIVE) Ur Phencyclidine Scrn (NEGATIVE) Ur Amphetamines Screen (NEGATIVE) U Benzodiazepines Scrn (NEGATIVE) U Oth Cocaine Metabols (NEGATIVE) U Cannabinoids Screen (NEGATIVE) Alcohol, Quantitative (0-10) mg/dl Blood Type Blood Type Confirm Antibody Screen 03/05/17 03/04/17 03/04/17 Range/Units 03:00 21:07 20:27 WBC (4.8-10.8) K/uL RBC (4.40-5.90) Mil/uL Hgb (12.0-18.0) g/dL Hct (35.0-51.0) % MCV (80.0-94.0) fL MCH (27.0-31.0) pg MCHC (33.0-37.0) g/dL RDW (11.5-14.5) % Plt Count (130-400) K/uL MPV (7.2-11.7) fL Neut % (Auto) (50.0-75.0) % Lymph % (Auto) (20.0-40.0) % [place]yer % (Auto) (0.0-10.0) % Eos % (Auto) (0.0-4.0) % Baso % (Auto) (0.0-2.0) % Neut # (1.8-7.0) K/uL Lymph # (1.0-4.3) K/uL [place]yer # (0.0-0.8) K/uL Eos # (0.0-0.7) K/uL Baso # (0.0-0.2) K/uL Neutrophils % (Manual) (50-75) % Band Neutrophils % (0-2) % Lymphocytes % (Manual) (20-40) % Monocytes % (Manual) (0-10) % Platelet Estimate (NORMAL) Anisocytosis (manual) PT (9.7-12.2) SECONDS INR APTT (21-34) SECONDS Puncture Site Rradial Rr pCO2 42 41 (35-45) mm/Hg pO2 46 L 94 (80-100) mm/Hg HCO3 17.1 L 10.6 L (21-28) mmol/L ABG pH 7.22 L 7.06 L* (7.35-7.45) ABG Total CO2 18.5 L 12.9 L (22-28) mmol/L ABG O2 Saturation 78.0 L 95.7 (95-98) % ABG Base Excess -9.7 L -18.2 L (-2.0-3.0) mmol/L ABG Hemoglobin 6.7 L (11.7-17.4) g/dL ABG Carboxyhemoglobin 1.7 H (0.5-1.5) % POC ABG HHb (Measured) 21.6 H (0.0-5.0) % ABG Methemoglobin 0.3 (0.0-3.0) % Reji Test Pos Unable ABG Potassium 5.7 H (3.6-5.2) mmol/L A-a O2 Difference 615.0 568.0 mm/Hg Respiratory Index 13.4 6.0 Hgb O2 Saturation 76.4 L (95.0-98.0) % Glucose 280 H (75-110) mg/dl Lactate 6.7 H* (0.7-2.1) mmol/L Vent Mode Prvc A/c Mechanical Rate 20 14 FiO2 100.0 100.0 % Tidal Volume 400 500 PEEP 5 Crit Value Called To Dr. joseph Crit Value Called By Aquiles talamantes Crit Value Read Back Y Blood Gas Notified Time 2109 Sodium 132.0 (132-148) mmol/L Potassium (3.6-5.2) mmol/L Chloride 105.0 (98-107) mmol/L Carbon Dioxide (22-30) mmol/L Anion Gap (10-20) BUN (9-20) mg/dL Creatinine (0.8-1.5) mg/dL Est GFR ( Amer) Est GFR (Non-Af Amer) POC Glucose (mg/dL) 291 H (65-110) mg/dL Random Glucose (75-110) mg/dL Lactic Acid (0.7-2.1) mmol/L Calcium (8.6-10.4) mg/dl Phosphorus (2.5-4.5) mg/dL Magnesium (1.6-2.3) mg/dL Total Bilirubin (0.2-1.3) mg/dL AST (17-59) U/L ALT (21-72) U/L Alkaline Phosphatase (38-126) U/L Total Creatine Kinase (55-170) U/L CK-MB (Mass) (0.0-3.38) ng/mL Troponin I (0.00-0.120) ng/mL Troponin I, Quant (0.00-0.120) ng/mL NT-Pro-B Natriuret Pep (0-900) pg/mL Total Protein (6.3-8.3) g/dL Albumin (3.5-5.0) g/dL Globulin (2.2-3.9) gm/dL Albumin/Globulin Ratio (1.0-2.1) Procalcitonin (0.19-0.49) NG/ML Arterial Blood Potassium 5.7 H (3.6-5.2) mmol/L Urine Color (YELLOW) Urine Clarity (Clear) Urine pH (5.0-8.0) Ur Specific [place] (1.003-1.030) Urine Protein (NEGATIVE) mg/dL Urine Glucose (UA) (Normal) mg/dL Urine Ketones (NEGATIVE) mg/dL Urine Blood (NEGATIVE) Urine Nitrate (NEGATIVE) Urine Bilirubin (NEGATIVE) Urine Urobilinogen (0.2-1.0) mg/dL Ur Leukocyte Esterase (Negative) Mika/uL Urine WBC (Auto) (0-5) /hpf Urine RBC (Auto) (0-3) /hpf Urine Bacteria (<OCC) Urine Opiates Screen (NEGATIVE) Urine Methadone Screen (NEGATIVE) Ur Barbiturates Screen (NEGATIVE) Ur Phencyclidine Scrn (NEGATIVE) Ur Amphetamines Screen (NEGATIVE) U Benzodiazepines Scrn (NEGATIVE) U Oth Cocaine Metabols (NEGATIVE) U Cannabinoids Screen (NEGATIVE) Alcohol, Quantitative (0-10) mg/dl Blood Type Blood Type Confirm Antibody Screen 03/04/17 03/04/17 03/04/17 Range/Units 20:25 20:15 20:12 WBC (4.8-10.8) K/uL RBC (4.40-5.90) Mil/uL Hgb (12.0-18.0) g/dL Hct (35.0-51.0) % MCV (80.0-94.0) fL MCH (27.0-31.0) pg MCHC (33.0-37.0) g/dL RDW (11.5-14.5) % Plt Count (130-400) K/uL MPV (7.2-11.7) fL Neut % (Auto) (50.0-75.0) % Lymph % (Auto) (20.0-40.0) % [place]yer % (Auto) (0.0-10.0) % Eos % (Auto) (0.0-4.0) % Baso % (Auto) (0.0-2.0) % Neut # (1.8-7.0) K/uL Lymph # (1.0-4.3) K/uL [place]yer # (0.0-0.8) K/uL Eos # (0.0-0.7) K/uL Baso # (0.0-0.2) K/uL Neutrophils % (Manual) (50-75) % Band Neutrophils % (0-2) % Lymphocytes % (Manual) (20-40) % Monocytes % (Manual) (0-10) % Platelet Estimate (NORMAL) Anisocytosis (manual) PT (9.7-12.2) SECONDS INR APTT (21-34) SECONDS Puncture Site pCO2 (35-45) mm/Hg pO2 (80-100) mm/Hg HCO3 (21-28) mmol/L ABG pH (7.35-7.45) ABG Total CO2 (22-28) mmol/L ABG O2 Saturation (95-98) % ABG Base Excess (-2.0-3.0) mmol/L ABG Hemoglobin (11.7-17.4) g/dL ABG Carboxyhemoglobin (0.5-1.5) % POC ABG HHb (Measured) (0.0-5.0) % ABG Methemoglobin (0.0-3.0) % Reji Test ABG Potassium (3.6-5.2) mmol/L A-a O2 Difference mm/Hg Respiratory Index Hgb O2 Saturation (95.0-98.0) % Glucose (75-110) mg/dl Lactate (0.7-2.1) mmol/L Vent Mode Mechanical Rate FiO2 % Tidal Volume PEEP Crit Value Called To Crit Value Called By Crit Value Read Back Blood Gas Notified Time Sodium (132-148) mmol/L Potassium (3.6-5.2) mmol/L Chloride (98-107) mmol/L Carbon Dioxide (22-30) mmol/L Anion Gap (10-20) BUN (9-20) mg/dL Creatinine (0.8-1.5) mg/dL Est GFR ( Amer) Est GFR (Non-Af Amer) POC Glucose (mg/dL) (65-110) mg/dL Random Glucose (75-110) mg/dL Lactic Acid (0.7-2.1) mmol/L Calcium (8.6-10.4) mg/dl Phosphorus (2.5-4.5) mg/dL Magnesium 1.8 (1.6-2.3) mg/dL Total Bilirubin (0.2-1.3) mg/dL AST (17-59) U/L ALT (21-72) U/L Alkaline Phosphatase (38-126) U/L Total Creatine Kinase 125 (55-170) U/L CK-MB (Mass) (0.0-3.38) ng/mL Troponin I (0.00-0.120) ng/mL Troponin I, Quant (0.00-0.120) ng/mL NT-Pro-B Natriuret Pep (0-900) pg/mL Total Protein (6.3-8.3) g/dL Albumin (3.5-5.0) g/dL Globulin (2.2-3.9) gm/dL Albumin/Globulin Ratio (1.0-2.1) Procalcitonin (0.19-0.49) NG/ML Arterial Blood Potassium (3.6-5.2) mmol/L Urine Color (YELLOW) Urine Clarity (Clear) Urine pH (5.0-8.0) Ur Specific [place] (1.003-1.030) Urine Protein (NEGATIVE) mg/dL Urine Glucose (UA) (Normal) mg/dL Urine Ketones (NEGATIVE) mg/dL Urine Blood (NEGATIVE) Urine Nitrate (NEGATIVE) Urine Bilirubin (NEGATIVE) Urine Urobilinogen (0.2-1.0) mg/dL Ur Leukocyte Esterase (Negative) Mika/uL Urine WBC (Auto) (0-5) /hpf Urine RBC (Auto) (0-3) /hpf Urine Bacteria (<OCC) Urine Opiates Screen (NEGATIVE) Urine Methadone Screen (NEGATIVE) Ur Barbiturates Screen (NEGATIVE) Ur Phencyclidine Scrn (NEGATIVE) Ur Amphetamines Screen (NEGATIVE) U Benzodiazepines Scrn (NEGATIVE) U Oth Cocaine Metabols (NEGATIVE) U Cannabinoids Screen (NEGATIVE) Alcohol, Quantitative < 10 (0-10) mg/dl Blood Type B POSITIVE Blood Type Confirm B POSITIVE Antibody Screen Negative 03/04/17 03/04/17 03/04/17 Range/Units 20:00 20:00 19:55 WBC (4.8-10.8) K/uL RBC (4.40-5.90) Mil/uL Hgb (12.0-18.0) g/dL Hct (35.0-51.0) % MCV (80.0-94.0) fL MCH (27.0-31.0) pg MCHC (33.0-37.0) g/dL RDW (11.5-14.5) % Plt Count (130-400) K/uL MPV (7.2-11.7) fL Neut % (Auto) (50.0-75.0) % Lymph % (Auto) (20.0-40.0) % [place] % (Auto) (0.0-10.0) % Eos % (Auto) (0.0-4.0) % Baso % (Auto) (0.0-2.0) % Neut # (1.8-7.0) K/uL Lymph # (1.0-4.3) K/uL [place] # (0.0-0.8) K/uL Eos # (0.0-0.7) K/uL Baso # (0.0-0.2) K/uL Neutrophils % (Manual) (50-75) % Band Neutrophils % (0-2) % Lymphocytes % (Manual) (20-40) % Monocytes % (Manual) (0-10) % Platelet Estimate (NORMAL) Anisocytosis (manual) PT (9.7-12.2) SECONDS INR APTT (21-34) SECONDS Puncture Site pCO2 (35-45) mm/Hg pO2 (80-100) mm/Hg HCO3 (21-28) mmol/L ABG pH (7.35-7.45) ABG Total CO2 (22-28) mmol/L ABG O2 Saturation (95-98) % ABG Base Excess (-2.0-3.0) mmol/L ABG Hemoglobin (11.7-17.4) g/dL ABG Carboxyhemoglobin (0.5-1.5) % POC ABG HHb (Measured) (0.0-5.0) % ABG Methemoglobin (0.0-3.0) % Reji Test ABG Potassium (3.6-5.2) mmol/L A-a O2 Difference mm/Hg Respiratory Index Hgb O2 Saturation (95.0-98.0) % Glucose (75-110) mg/dl Lactate (0.7-2.1) mmol/L Vent Mode Mechanical Rate FiO2 % Tidal Volume PEEP Crit Value Called To Crit Value Called By Crit Value Read Back Blood Gas Notified Time Sodium 130 L (132-148) mmol/L Potassium 5.4 H (3.6-5.2) mmol/L Chloride 98 (98-107) mmol/L Carbon Dioxide 13 L (22-30) mmol/L Anion Gap 24 H (10-20) BUN 45 H (9-20) mg/dL Creatinine 2.7 H (0.8-1.5) mg/dL Est GFR ( Amer) 30 Est GFR (Non-Af Amer) 25 POC Glucose (mg/dL) (65-110) mg/dL Random Glucose 346 H (75-110) mg/dL Lactic Acid (0.7-2.1) mmol/L Calcium 8.2 L (8.6-10.4) mg/dl Phosphorus (2.5-4.5) mg/dL Magnesium (1.6-2.3) mg/dL Total Bilirubin 0.6 (0.2-1.3) mg/dL AST 290 H (17-59) U/L ALT 130 H (21-72) U/L Alkaline Phosphatase 99 (38-126) U/L Total Creatine Kinase 122 (55-170) U/L CK-MB (Mass) 1.25 (0.0-3.38) ng/mL Troponin I (0.00-0.120) ng/mL Troponin I, Quant 0.1990 H* (0.00-0.120) ng/mL NT-Pro-B Natriuret Pep 26928 H (0-900) pg/mL Total Protein 7.7 (6.3-8.3) g/dL Albumin 3.4 L (3.5-5.0) g/dL Globulin 4.3 H (2.2-3.9) gm/dL Albumin/Globulin Ratio 0.8 L (1.0-2.1) Procalcitonin (0.19-0.49) NG/ML Arterial Blood Potassium (3.6-5.2) mmol/L Urine Color Yellow (YELLOW) Urine Clarity Hazy (Clear) Urine pH 5.0 (5.0-8.0) Ur Specific [place] 1.013 (1.003-1.030) Urine Protein Negative (NEGATIVE) mg/dL Urine Glucose (UA) 1+ H (Normal) mg/dL Urine Ketones Negative (NEGATIVE) mg/dL Urine Blood 1+ H (NEGATIVE) Urine Nitrate Negative (NEGATIVE) Urine Bilirubin Negative (NEGATIVE) Urine Urobilinogen Normal (0.2-1.0) mg/dL Ur Leukocyte Esterase Neg (Negative) Mika/uL Urine WBC (Auto) 12 H (0-5) /hpf Urine RBC (Auto) 15 H (0-3) /hpf Urine Bacteria Rare (<OCC) Urine Opiates Screen Negative (NEGATIVE) Urine Methadone Screen Negative (NEGATIVE) Ur Barbiturates Screen Negative (NEGATIVE) Ur Phencyclidine Scrn Negative (NEGATIVE) Ur Amphetamines Screen Negative (NEGATIVE) U Benzodiazepines Scrn Negative (NEGATIVE) U Oth Cocaine Metabols Negative (NEGATIVE) U Cannabinoids Screen Negative (NEGATIVE) Alcohol, Quantitative (0-10) mg/dl Blood Type Blood Type Confirm Antibody Screen 03/04/17 03/04/17 03/04/17 Range/Units 19:55 19:55 19:43 WBC 10.5 (4.8-10.8) K/uL RBC 2.32 L (4.40-5.90) Mil/uL Hgb 6.9 L (12.0-18.0) g/dL Hct 21.4 L (35.0-51.0) % MCV 92.2 (80.0-94.0) fL MCH 29.6 (27.0-31.0) pg MCHC 32.1 L (33.0-37.0) g/dL RDW 15.6 H (11.5-14.5) % Plt Count 223 (130-400) K/uL MPV 8.9 (7.2-11.7) fL Neut % (Auto) 83.0 H (50.0-75.0) % Lymph % (Auto) 10.1 L (20.0-40.0) % [place] % (Auto) 6.6 (0.0-10.0) % Eos % (Auto) 0.1 (0.0-4.0) % Baso % (Auto) 0.2 (0.0-2.0) % Neut # 8.8 H (1.8-7.0) K/uL Lymph # 1.1 (1.0-4.3) K/uL [place] # 0.7 (0.0-0.8) K/uL Eos # 0.0 (0.0-0.7) K/uL Baso # 0.0 (0.0-0.2) K/uL Neutrophils % (Manual) (50-75) % Band Neutrophils % (0-2) % Lymphocytes % (Manual) (20-40) % Monocytes % (Manual) (0-10) % Platelet Estimate (NORMAL) Anisocytosis (manual) PT 15.6 H (9.7-12.2) SECONDS INR 1.4 APTT 31 (21-34) SECONDS Puncture Site pCO2 (35-45) mm/Hg pO2 (80-100) mm/Hg HCO3 (21-28) mmol/L ABG pH (7.35-7.45) ABG Total CO2 (22-28) mmol/L ABG O2 Saturation (95-98) % ABG Base Excess (-2.0-3.0) mmol/L ABG Hemoglobin (11.7-17.4) g/dL ABG Carboxyhemoglobin (0.5-1.5) % POC ABG HHb (Measured) (0.0-5.0) % ABG Methemoglobin (0.0-3.0) % Reji Test ABG Potassium (3.6-5.2) mmol/L A-a O2 Difference mm/Hg Respiratory Index Hgb O2 Saturation (95.0-98.0) % Glucose (75-110) mg/dl Lactate (0.7-2.1) mmol/L Vent Mode Mechanical Rate FiO2 % Tidal Volume PEEP Crit Value Called To Crit Value Called By Crit Value Read Back Blood Gas Notified Time Sodium (132-148) mmol/L Potassium (3.6-5.2) mmol/L Chloride (98-107) mmol/L Carbon Dioxide (22-30) mmol/L Anion Gap (10-20) BUN (9-20) mg/dL Creatinine (0.8-1.5) mg/dL Est GFR ( Amer) Est GFR (Non-Af Amer) POC Glucose (mg/dL) 400 H* (65-110) mg/dL Random Glucose (75-110) mg/dL Lactic Acid (0.7-2.1) mmol/L Calcium (8.6-10.4) mg/dl Phosphorus (2.5-4.5) mg/dL Magnesium (1.6-2.3) mg/dL Total Bilirubin (0.2-1.3) mg/dL AST (17-59) U/L ALT (21-72) U/L Alkaline Phosphatase (38-126) U/L Total Creatine Kinase (55-170) U/L CK-MB (Mass) (0.0-3.38) ng/mL Troponin I (0.00-0.120) ng/mL Troponin I, Quant (0.00-0.120) ng/mL NT-Pro-B Natriuret Pep (0-900) pg/mL Total Protein (6.3-8.3) g/dL Albumin (3.5-5.0) g/dL Globulin (2.2-3.9) gm/dL Albumin/Globulin Ratio (1.0-2.1) Procalcitonin (0.19-0.49) NG/ML Arterial Blood Potassium (3.6-5.2) mmol/L Urine Color (YELLOW) Urine Clarity (Clear) Urine pH (5.0-8.0) Ur Specific [place] (1.003-1.030) Urine Protein (NEGATIVE) mg/dL Urine Glucose (UA) (Normal) mg/dL Urine Ketones (NEGATIVE) mg/dL Urine Blood (NEGATIVE) Urine Nitrate (NEGATIVE) Urine Bilirubin (NEGATIVE) Urine Urobilinogen (0.2-1.0) mg/dL Ur Leukocyte Esterase (Negative) Mika/uL Urine WBC (Auto) (0-5) /hpf Urine RBC (Auto) (0-3) /hpf Urine Bacteria (<OCC) Urine Opiates Screen (NEGATIVE) Urine Methadone Screen (NEGATIVE) Ur Barbiturates Screen (NEGATIVE) Ur Phencyclidine Scrn (NEGATIVE) Ur Amphetamines Screen (NEGATIVE) U Benzodiazepines Scrn (NEGATIVE) U Oth Cocaine Metabols (NEGATIVE) U Cannabinoids Screen (NEGATIVE) Alcohol, Quantitative (0-10) mg/dl Blood Type Blood Type Confirm Antibody Screen Laboratory Results - last 24 hr 03/04/17 03/04/17 03/04/17 19:43 19:55 19:55 WBC 10.5 RBC 2.32 L Hgb 6.9 L Hct 21.4 L MCV 92.2 MCH 29.6 MCHC 32.1 L RDW 15.6 H Plt Count 223 MPV 8.9 Neut % (Auto) 83.0 H Lymph % (Auto) 10.1 L [place] % (Auto) 6.6 Eos % (Auto) 0.1 Baso % (Auto) 0.2 Neut # 8.8 H Lymph # 1.1 [place] # 0.7 Eos # 0.0 Baso # 0.0 Neutrophils % (Manual) Band Neutrophils % Lymphocytes % (Manual) Monocytes % (Manual) Platelet Estimate Anisocytosis (manual) PT 15.6 H INR 1.4 APTT 31 Puncture Site pCO2 pO2 HCO3 ABG pH ABG Total CO2 ABG O2 Saturation ABG Base Excess ABG Hemoglobin ABG Carboxyhemoglobin POC ABG HHb (Measured) ABG Methemoglobin Reji Test ABG Potassium A-a O2 Difference Respiratory Index Hgb O2 Saturation Glucose Lactate Vent Mode Mechanical Rate FiO2 Tidal Volume PEEP Crit Value Called To Crit Value Called By Crit Value Read Back Blood Gas Notified Time Sodium Potassium Chloride Carbon Dioxide Anion Gap BUN Creatinine Est GFR ( Amer) Est GFR (Non-Af Amer) POC Glucose (mg/dL) 400 H* Random Glucose Lactic Acid Calcium Phosphorus Magnesium Total Bilirubin AST ALT Alkaline Phosphatase Total Creatine Kinase CK-MB (Mass) Troponin I Troponin I, Quant NT-Pro-B Natriuret Pep Total Protein Albumin Globulin Albumin/Globulin Ratio Procalcitonin Arterial Blood Potassium Urine Color Urine Clarity Urine pH Ur Specific [place] Urine Protein Urine Glucose (UA) Urine Ketones Urine Blood Urine Nitrate Urine Bilirubin Urine Urobilinogen Ur Leukocyte Esterase Urine WBC (Auto) Urine RBC (Auto) Urine Bacteria Urine Opiates Screen Urine Methadone Screen Ur Barbiturates Screen Ur Phencyclidine Scrn Ur Amphetamines Screen U Benzodiazepines Scrn U Oth Cocaine Metabols U Cannabinoids Screen Alcohol, Quantitative Blood Type Blood Type Confirm Antibody Screen 03/04/17 03/04/17 03/04/17 19:55 20:00 20:00 WBC RBC Hgb Hct MCV MCH MCHC RDW Plt Count MPV Neut % (Auto) Lymph % (Auto) [place] % (Auto) Eos % (Auto) Baso % (Auto) Neut # Lymph # [place] # Eos # Baso # Neutrophils % (Manual) Band Neutrophils % Lymphocytes % (Manual) Monocytes % (Manual) Platelet Estimate Anisocytosis (manual) PT INR APTT Puncture Site pCO2 pO2 HCO3 ABG pH ABG Total CO2 ABG O2 Saturation ABG Base Excess ABG Hemoglobin ABG Carboxyhemoglobin POC ABG HHb (Measured) ABG Methemoglobin Reji Test ABG Potassium A-a O2 Difference Respiratory Index Hgb O2 Saturation Glucose Lactate Vent Mode Mechanical Rate FiO2 Tidal Volume PEEP Crit Value Called To Crit Value Called By Crit Value Read Back Blood Gas Notified Time Sodium 130 L Potassium 5.4 H Chloride 98 Carbon Dioxide 13 L Anion Gap 24 H BUN 45 H Creatinine 2.7 H Est GFR ( Amer) 30 Est GFR (Non-Af Amer) 25 POC Glucose (mg/dL) Random Glucose 346 H Lactic Acid Calcium 8.2 L Phosphorus Magnesium Total Bilirubin 0.6 AST 290 H ALT 130 H Alkaline Phosphatase 99 Total Creatine Kinase 122 CK-MB (Mass) 1.25 Troponin I Troponin I, Quant 0.1990 H* NT-Pro-B Natriuret Pep 66789 H Total Protein 7.7 Albumin 3.4 L Globulin 4.3 H Albumin/Globulin Ratio 0.8 L Procalcitonin Arterial Blood Potassium Urine Color Yellow Urine Clarity Hazy Urine pH 5.0 Ur Specific [place] 1.013 Urine Protein Negative Urine Glucose (UA) 1+ H Urine Ketones Negative Urine Blood 1+ H Urine Nitrate Negative Urine Bilirubin Negative Urine Urobilinogen Normal Ur Leukocyte Esterase Neg Urine WBC (Auto) 12 H Urine RBC (Auto) 15 H Urine Bacteria Rare Urine Opiates Screen Negative Urine Methadone Screen Negative Ur Barbiturates Screen Negative Ur Phencyclidine Scrn Negative Ur Amphetamines Screen Negative U Benzodiazepines Scrn Negative U Oth Cocaine Metabols Negative U Cannabinoids Screen Negative Alcohol, Quantitative Blood Type Blood Type Confirm Antibody Screen 03/04/17 03/04/17 03/04/17 20:12 20:15 20:25 WBC RBC Hgb Hct MCV MCH MCHC RDW Plt Count MPV Neut % (Auto) Lymph % (Auto) [place] % (Auto) Eos % (Auto) Baso % (Auto) Neut # Lymph # [place] # Eos # Baso # Neutrophils % (Manual) Band Neutrophils % Lymphocytes % (Manual) Monocytes % (Manual) Platelet Estimate Anisocytosis (manual) PT INR APTT Puncture Site pCO2 pO2 HCO3 ABG pH ABG Total CO2 ABG O2 Saturation ABG Base Excess ABG Hemoglobin ABG Carboxyhemoglobin POC ABG HHb (Measured) ABG Methemoglobin Reji Test ABG Potassium A-a O2 Difference Respiratory Index Hgb O2 Saturation Glucose Lactate Vent Mode Mechanical Rate FiO2 Tidal Volume PEEP Crit Value Called To Crit Value Called By Crit Value Read Back Blood Gas Notified Time Sodium Potassium Chloride Carbon Dioxide Anion Gap BUN Creatinine Est GFR ( Amer) Est GFR (Non-Af Amer) POC Glucose (mg/dL) Random Glucose Lactic Acid Calcium Phosphorus Magnesium 1.8 Total Bilirubin AST ALT Alkaline Phosphatase Total Creatine Kinase 125 CK-MB (Mass) Troponin I Troponin I, Quant NT-Pro-B Natriuret Pep Total Protein Albumin Globulin Albumin/Globulin Ratio Procalcitonin Arterial Blood Potassium Urine Color Urine Clarity Urine pH Ur Specific [place] Urine Protein Urine Glucose (UA) Urine Ketones Urine Blood Urine Nitrate Urine Bilirubin Urine Urobilinogen Ur Leukocyte Esterase Urine WBC (Auto) Urine RBC (Auto) Urine Bacteria Urine Opiates Screen Urine Methadone Screen Ur Barbiturates Screen Ur Phencyclidine Scrn Ur Amphetamines Screen U Benzodiazepines Scrn U Oth Cocaine Metabols U Cannabinoids Screen Alcohol, Quantitative < 10 Blood Type B POSITIVE Blood Type Confirm B POSITIVE Antibody Screen Negative 03/04/17 03/04/17 03/05/17 20:27 21:07 03:00 WBC RBC Hgb Hct MCV MCH MCHC RDW Plt Count MPV Neut % (Auto) Lymph % (Auto) [place] % (Auto) Eos % (Auto) Baso % (Auto) Neut # Lymph # [place] # Eos # Baso # Neutrophils % (Manual) Band Neutrophils % Lymphocytes % (Manual) Monocytes % (Manual) Platelet Estimate Anisocytosis (manual) PT INR APTT Puncture Site Rr Rradial pCO2 41 42 pO2 94 46 L HCO3 10.6 L 17.1 L ABG pH 7.06 L* 7.22 L ABG Total CO2 12.9 L 18.5 L ABG O2 Saturation 95.7 78.0 L ABG Base Excess -18.2 L -9.7 L ABG Hemoglobin 6.7 L ABG Carboxyhemoglobin 1.7 H POC ABG HHb (Measured) 21.6 H ABG Methemoglobin 0.3 Reji Test Unable Pos ABG Potassium 5.7 H A-a O2 Difference 568.0 615.0 Respiratory Index 6.0 13.4 Hgb O2 Saturation 76.4 L Glucose 280 H Lactate 6.7 H* Vent Mode A/c Prvc Mechanical Rate 14 20 FiO2 100.0 100.0 Tidal Volume 500 400 PEEP 5 Crit Value Called To Dr. joseph Crit Value Called By Aquiles talamantes Crit Value Read Back Y Blood Gas Notified Time 2109 Sodium 132.0 Potassium Chloride 105.0 Carbon Dioxide Anion Gap BUN Creatinine Est GFR ( Amer) Est GFR (Non-Af Amer) POC Glucose (mg/dL) 291 H Random Glucose Lactic Acid Calcium Phosphorus Magnesium Total Bilirubin AST ALT Alkaline Phosphatase Total Creatine Kinase CK-MB (Mass) Troponin I Troponin I, Quant NT-Pro-B Natriuret Pep Total Protein Albumin Globulin Albumin/Globulin Ratio Procalcitonin Arterial Blood Potassium 5.7 H Urine Color Urine Clarity Urine pH Ur Specific [place] Urine Protein Urine Glucose (UA) Urine Ketones Urine Blood Urine Nitrate Urine Bilirubin Urine Urobilinogen Ur Leukocyte Esterase Urine WBC (Auto) Urine RBC (Auto) Urine Bacteria Urine Opiates Screen Urine Methadone Screen Ur Barbiturates Screen Ur Phencyclidine Scrn Ur Amphetamines Screen U Benzodiazepines Scrn U Oth Cocaine Metabols U Cannabinoids Screen Alcohol, Quantitative Blood Type Blood Type Confirm Antibody Screen 03/05/17 03/05/17 03/05/17 06:24 06:51 06:51 WBC RBC Hgb Hct MCV MCH MCHC RDW Plt Count MPV Neut % (Auto) Lymph % (Auto) [place] % (Auto) Eos % (Auto) Baso % (Auto) Neut # Lymph # [place] # Eos # Baso # Neutrophils % (Manual) Band Neutrophils % Lymphocytes % (Manual) Monocytes % (Manual) Platelet Estimate Anisocytosis (manual) PT INR APTT Puncture Site pCO2 pO2 HCO3 ABG pH ABG Total CO2 ABG O2 Saturation ABG Base Excess ABG Hemoglobin ABG Carboxyhemoglobin POC ABG HHb (Measured) ABG Methemoglobin Reji Test ABG Potassium A-a O2 Difference Respiratory Index Hgb O2 Saturation Glucose Lactate Vent Mode Mechanical Rate FiO2 Tidal Volume PEEP Crit Value Called To Crit Value Called By Crit Value Read Back Blood Gas Notified Time Sodium Potassium Chloride Carbon Dioxide Anion Gap BUN Creatinine Est GFR ( Amer) Est GFR (Non-Af Amer) POC Glucose (mg/dL) 388 H Random Glucose Lactic Acid 4.2 H* Calcium Phosphorus Magnesium Total Bilirubin AST ALT Alkaline Phosphatase Total Creatine Kinase CK-MB (Mass) Troponin I 0.3180 H* Troponin I, Quant NT-Pro-B Natriuret Pep Total Protein Albumin Globulin Albumin/Globulin Ratio Procalcitonin Arterial Blood Potassium Urine Color Urine Clarity Urine pH Ur Specific [place] Urine Protein Urine Glucose (UA) Urine Ketones Urine Blood Urine Nitrate Urine Bilirubin Urine Urobilinogen Ur Leukocyte Esterase Urine WBC (Auto) Urine RBC (Auto) Urine Bacteria Urine Opiates Screen Urine Methadone Screen Ur Barbiturates Screen Ur Phencyclidine Scrn Ur Amphetamines Screen U Benzodiazepines Scrn U Oth Cocaine Metabols U Cannabinoids Screen Alcohol, Quantitative Blood Type Blood Type Confirm Antibody Screen 03/05/17 03/05/17 03/05/17 09:00 09:00 09:00 WBC 18.6 H D RBC 2.55 L Hgb 7.8 L Hct 22.9 L MCV 89.7 D MCH 30.6 MCHC 34.1 RDW 15.4 H Plt Count 200 MPV 9.4 Neut % (Auto) 92.9 H Lymph % (Auto) 2.1 L [place] % (Auto) 4.6 Eos % (Auto) 0.0 Baso % (Auto) 0.4 Neut # 17.3 H Lymph # 0.4 L [place] # 0.9 H Eos # 0.0 Baso # 0.1 Neutrophils % (Manual) 90 H Band Neutrophils % 5 H Lymphocytes % (Manual) 2 L Monocytes % (Manual) 3 Platelet Estimate Normal Anisocytosis (manual) Slight PT INR APTT Puncture Site pCO2 pO2 HCO3 ABG pH ABG Total CO2 ABG O2 Saturation ABG Base Excess ABG Hemoglobin ABG Carboxyhemoglobin POC ABG HHb (Measured) ABG Methemoglobin Reji Test ABG Potassium A-a O2 Difference Respiratory Index Hgb O2 Saturation Glucose Lactate Vent Mode Mechanical Rate FiO2 Tidal Volume PEEP Crit Value Called To Crit Value Called By Crit Value Read Back Blood Gas Notified Time Sodium 130 L Potassium 7.0 H* D Chloride 97 L Carbon Dioxide 22 Anion Gap 18 BUN 54 H Creatinine 2.6 H Est GFR ( Amer) 32 Est GFR (Non-Af Amer) 26 POC Glucose (mg/dL) Random Glucose 337 H Lactic Acid Calcium 7.2 L Phosphorus 6.5 H Magnesium 1.3 L Total Bilirubin 1.5 H AST 966 H D ALT 302 H D Alkaline Phosphatase 112 Total Creatine Kinase CK-MB (Mass) Troponin I Troponin I, Quant NT-Pro-B Natriuret Pep Total Protein 6.8 Albumin 3.5 Globulin 3.3 Albumin/Globulin Ratio 1.1 Procalcitonin 1.65 H Arterial Blood Potassium Urine Color Urine Clarity Urine pH Ur Specific [place] Urine Protein Urine Glucose (UA) Urine Ketones Urine Blood Urine Nitrate Urine Bilirubin Urine Urobilinogen Ur Leukocyte Esterase Urine WBC (Auto) Urine RBC (Auto) Urine Bacteria Urine Opiates Screen Urine Methadone Screen Ur Barbiturates Screen Ur Phencyclidine Scrn Ur Amphetamines Screen U Benzodiazepines Scrn U Oth Cocaine Metabols U Cannabinoids Screen Alcohol, Quantitative Blood Type Blood Type Confirm Antibody Screen EKG/Cardiology Studies: Cardiology / EKG Studies 03/04/17 19:52 ELECTROCARDIOGRAM Stat Comment: Mode Of Transportation: BED Reason For Exam: bed 12 cardiac arrest 03/04/17 21:22 EKG [ELECTROCARDIOGRAM] Stat Comment: Mode Of Transportation: BED Reason For Exam: bed 12 03/05/17 04:00 EKG [ELECTROCARDIOGRAM] Routine Comment: Mode Of Transportation: Reason For Exam: cardiac arrest 03/05/17 12:00 EKG [ELECTROCARDIOGRAM] Routine Comment: Mode Of Transportation: Reason For Exam: cardiac arrest Fingerstick Blood Sugar Results: 388 Review of Systems - Review of Systems Systems not reviewed;Unavailable: Intubated Assessment/Plan - Assessment and Plan (Free Text) Assessment: 52 y/o M with pmhx of HTN, DM II, kidney disease, who was brought to the ED after he collapsed in ED at home and was found in asystole. Patient given 3 doses of epi and CPR for 15 minutes then ROSC. Patient intubated in the field. Patient went into cardiac arrest twice more in the ICU. Neuro: Intubated, altered mental status Medication and Management: * Ativan 1 mg q2h PRN seizure activitiy * Dr. Rascon consulted, help appreciated Imaging: Head CT: chronic microvascular ischemic changes, no acute intracranial hemorrhage Pulm: Respiratory distress secondary to cardiac arrest Medication and Management * Patient intubated * Bicarb drip * Lasix * gipson to measure urine output * Propofol 5mcg/kg/min Imaging: Chest X-ray (03/05/17): Endotracheal tube extending into the midthoracic trachea. NG tube extending into the stomach. Dense consolidative opacificaitons throughout both lungs suggestive for underlying edema and or inflitrate. Cardio: s/p cardiac arrest Medication and management: * Dopamine drip, titrate PRN * Levophed drip, titrate PRN * Dr. Tate consulted, help appreciated * f/u Echo Heme: anemia Medication and management: * transfused one unit of PRBC * 03/05/17: Hg/Hct : 7.8/22.9 Endo: DM II Medication and management: * Regular ISS * accucheck q6h * f/u HgA1C Renal: acute vs chronic kidney disease Medication and management: * Dr. Osorio consulted, help appreciated * K+ 7.0 on 03/05, 1 amp Ca Gluconate, 1 amp bicarb, duonebs, solumedrol 40 BID given * K+ repeat 6.6, repeat of 1 amp Ca Gluconate, 1 amp bicarb, duonebs, and Kayexalate once at 6pm and once at 10pm * f/u labs MSK: right foot wound secondary to first metatarsal amputation Medication and management: * Wound care ID: Medication and management: * Vanco * Zosyn * f/u blood culture * Dr. Shore consulted, help appreciated Prophylaxis: DVT: Heparin 5,000 u sc q8h GI: Protonix 40 mg IVP daily
[2017-03-05] MEDS: Vancomycin 500mg/D5W 100 ml 500 MG/100 ML BAG IVPB SCH ×2 (13:12→21:30)
[2017-03-05] MEDS: Azithromycin 500 MG in Sodium Chloride 0.9% 250 ML IVPB SCH (14:35)
[2017-03-05 17:28] LABS: ALB/GLOB RATIO 0.8 (1.0-2.1); BILIRUBIN,TOTAL 0.9 mg/dL (0.2-1.3); PHOSPHOROUS 4.6 mg/dL (2.5-4.5); TOTAL PROTEIN 7.5 g/dL (6.3-8.3)
[2017-03-05 17:29] LABS: CALCIUM 7.5 mg/dl (8.6-10.4); MAGNESIUM 1.3 mg/dL (1.6-2.3)
[2017-03-05 17:52] LABS: POTASSIUM 6.6 mmol/L (3.6-5.2); TROPONIN I 0.392 ng/mL (0.00-0.120)
[2017-03-05] MEDS ORDERED: Sod Polystyrene Sulf 15 gm/60 ml Susp PO ONE ×2 (18:04→22:00)
[2017-03-05] MEDS ORDERED: Albuterol-Ipratrop 3 mg / 0.5 (3 ml) UD INH ONE (18:15)
[2017-03-05] MEDS: Propofol 10 mg/ml 1,000 MG/100 ML VIAL IV PRN (19:00)
--- NOTE | 2017-03-05 19:09 | CP.PCM.CON ---
Past Patient History - Past Medical History & Family History Past Medical History?: Yes - Past Social History Smoking Status: UNKNOWN Chewing Tobacco Use: No Cigar Use: No Alcohol: None Drugs: Denies Home Situation {Lives}: Alone - CARDIAC Hx Hypertension: Yes - PULMONARY Hx Respiratory Disorders: No - NEUROLOGICAL Hx Neurological Disorder: No - HEENT Hx HEENT Problems: No - RENAL Hx Chronic Kidney Disease: Yes Hx Renal Failure: Yes - ENDOCRINE/METABOLIC Hx Endocrine Disorders: Yes Hx Diabetes Mellitus Type 2: Yes - INTEGUMENTARY Hx Dermatological Problems: Yes - MUSCULOSKELETAL/RHEUMATOLOGICAL Hx Musculoskeletal Disorders: No - GASTROINTESTINAL Hx Gastrointestinal Disorders: No - GENITOURINARY/GYNECOLOGICAL Hx Genitourinary Disorders: No - PSYCHIATRIC Hx Substance Use: No - SURGICAL HISTORY Other/Comment: Great toe left foot amputated - ANESTHESIA Hx Anesthesia: Yes (UNABLE TO OBTAIN) Hx Anesthesia Reactions: No Meds Allergies/Adverse Reactions: Allergies Allergy/AdvReac Type Severity Reaction Status Date / Time Unobtainable Allergy Verified 03/04/17 20:17 - Medications Medications: Current Medications Albuterol/Ipratropium (Duoneb 3 Mg/0.5 Mg (3 Ml) Ud) 3 ml INH RQ6 TENA Furosemide (Lasix) 40 mg IVP BID TENA Last Admin: 03/05/17 18:55 Dose: 40 mg Heparin Sodium (Porcine) (Heparin) 5,000 units SC Q8 TENA Last Admin: 03/05/17 15:13 Dose: 5,000 units Piperacillin Sod/Tazobactam Sod (Zosyn 2.25 Gm Iv Premix) 2.25 gm in 50 mls @ 100 mls/hr IVPB Q6H TENA Last Admin: 03/05/17 14:49 Dose: 100 mls/hr Vancomycin HCl/Dextrose (Vancocin) 500 mg in 100 mls @ 166.6 mls/hr IVPB Q12H TENA Stop: 03/09/17 22:31 Last Admin: 03/05/17 13:12 Dose: Not Given Dopamine HCl/Dextrose (Dopamine 400mg/250ml D5w) 400 mg in 250 mls @ 14.033 mls /hr IV .[id number] PRN; Protocol; 5 MCG/KG/MIN PRN Reason: TITRATE PER MD ORDER Last Admin: 03/05/17 14:45 Dose: 5 mcg/kg/min, 14.033 mls/hr Norepinephrine Bitartrate 8 mg (/ Sodium Chloride) 258 mls @ 7.74 mls/hr IV .Q24H PRN; Protocol; 4 MCG/MIN PRN Reason: TITRATE PER MD ORDER Last Admin: 03/05/17 15:00 Dose: 11.62 mcg/min, 22.5 mls/hr Levetiracetam 500 mg/ Sodium (Chloride) 105 mls @ 420 mls/hr IVPB Q12H TENA Last Admin: 03/05/17 14:25 Dose: 420 mls/hr Propofol (Diprivan) 1,000 mg in 100 mls @ 2.245 mls/hr IV .Q24H PRN; Protocol; 5 MCG/KG/MIN PRN Reason: TITRATE PER MD ORDER Last Admin: 03/05/17 10:15 Dose: 5 mcg/kg/min, 2.245 mls/hr Azithromycin 500 mg/ Sodium (Chloride) 250 mls @ 250 mls/hr IVPB DAILY [facility] Last Admin: 03/05/17 14:35 Dose: 250 mls/hr Insulin Human Regular (Novolin R) 0 unit SC Q6H TENA PRN Reason: Protocol Last Admin: 03/05/17 19:00 Dose: 4 unit Lorazepam (Ativan) 1 mg IVP Q2H PRN PRN Reason: Seizure activity Last Admin: 03/05/17 07:26 Dose: 1 mg Pantoprazole Sodium (Protonix Inj) 40 mg IVP DAILY [facility] Last Admin: 03/05/17 11:07 Dose: 40 mg Sodium Polystyrene Sulfonate (Kayexalate Susp) 15 gm PO ONCE ONE Stop: 03/05/17 22:01 Physical Exam - Constitutional Appears: Well - Head Exam Head Exam: ATRAUMATIC, NORMAL INSPECTION, NORMOCEPHALIC - Eye Exam Eye Exam: EOMI, Normal appearance, PERRL Pupil Exam: NORMAL ACCOMODATION, PERRL - ENT Exam ENT Exam: Mucous Membranes Moist, Normal Exam - Neck Exam Neck exam: Positive for: Normal Inspection - Respiratory Exam Respiratory Exam: Decreased Breath Sounds - Cardiovascular Exam Cardiovascular Exam: REGULAR RHYTHM, +S1, +S2 - GI/Abdominal Exam GI & Abdominal Exam: Diminished Bowel Sounds, Soft - Rectal Exam Rectal Exam: Deferred Results - Vital Signs Recent Vital Signs: Last Vital Signs Temp 99.6 F 03/05/17 14:00 Pulse 111 H 03/05/17 15:00 Resp 22 03/05/17 15:00 BP 122/75 03/05/17 18:55 Pulse Ox 88 L 03/05/17 15:00 - Labs Result Diagrams: 03/05/17 09:00 03/05/17 16:33 Labs: Laboratory Results - last 24 hr 03/04/17 03/04/17 03/04/17 19:43 19:55 19:55 WBC 10.5 RBC 2.32 L Hgb 6.9 L Hct 21.4 L MCV 92.2 MCH 29.6 MCHC 32.1 L RDW 15.6 H Plt Count 223 MPV 8.9 Neut % (Auto) 83.0 H Lymph % (Auto) 10.1 L [place] % (Auto) 6.6 Eos % (Auto) 0.1 Baso % (Auto) 0.2 Neut # 8.8 H Lymph # 1.1 [place] # 0.7 Eos # 0.0 Baso # 0.0 Neutrophils % (Manual) Band Neutrophils % Lymphocytes % (Manual) Monocytes % (Manual) Platelet Estimate Anisocytosis (manual) PT 15.6 H INR 1.4 APTT 31 Puncture Site pCO2 pO2 HCO3 ABG pH ABG Total CO2 ABG O2 Saturation ABG Base Excess ABG Hemoglobin ABG Carboxyhemoglobin POC ABG HHb (Measured) ABG Methemoglobin Reji Test ABG Potassium A-a O2 Difference Respiratory Index Hgb O2 Saturation Glucose Lactate Vent Mode Mechanical Rate FiO2 Tidal Volume PEEP Crit Value Called To Crit Value Called By Crit Value Read Back Blood Gas Notified Time Sodium Potassium Chloride Carbon Dioxide Anion Gap BUN Creatinine Est GFR ( Amer) Est GFR (Non-Af Amer) POC Glucose (mg/dL) 400 H* Random Glucose Lactic Acid Calcium Phosphorus Magnesium Total Bilirubin AST ALT Alkaline Phosphatase Total Creatine Kinase CK-MB (Mass) Troponin I Troponin I, Quant NT-Pro-B Natriuret Pep Total Protein Albumin Globulin Albumin/Globulin Ratio Procalcitonin Arterial Blood Potassium Urine Color Urine Clarity Urine pH Ur Specific [place] Urine Protein Urine Glucose (UA) Urine Ketones Urine Blood Urine Nitrate Urine Bilirubin Urine Urobilinogen Ur Leukocyte Esterase Urine WBC (Auto) Urine RBC (Auto) Urine Bacteria Urine Opiates Screen Urine Methadone Screen Ur Barbiturates Screen Ur Phencyclidine Scrn Ur Amphetamines Screen U Benzodiazepines Scrn U Oth Cocaine Metabols U Cannabinoids Screen Alcohol, Quantitative Blood Type Blood Type Confirm Antibody Screen 03/04/17 03/04/17 03/04/17 19:55 20:00 20:00 WBC RBC Hgb Hct MCV MCH MCHC RDW Plt Count MPV Neut % (Auto) Lymph % (Auto) [place] % (Auto) Eos % (Auto) Baso % (Auto) Neut # Lymph # [place] # Eos # Baso # Neutrophils % (Manual) Band Neutrophils % Lymphocytes % (Manual) Monocytes % (Manual) Platelet Estimate Anisocytosis (manual) PT INR APTT Puncture Site pCO2 pO2 HCO3 ABG pH ABG Total CO2 ABG O2 Saturation ABG Base Excess ABG Hemoglobin ABG Carboxyhemoglobin POC ABG HHb (Measured) ABG Methemoglobin Reji Test ABG Potassium A-a O2 Difference Respiratory Index Hgb O2 Saturation Glucose Lactate Vent Mode Mechanical Rate FiO2 Tidal Volume PEEP Crit Value Called To Crit Value Called By Crit Value Read Back Blood Gas Notified Time Sodium 130 L Potassium 5.4 H Chloride 98 Carbon Dioxide 13 L Anion Gap 24 H BUN 45 H Creatinine 2.7 H Est GFR ( Amer) 30 Est GFR (Non-Af Amer) 25 POC Glucose (mg/dL) Random Glucose 346 H Lactic Acid Calcium 8.2 L Phosphorus Magnesium Total Bilirubin 0.6 AST 290 H ALT 130 H Alkaline Phosphatase 99 Total Creatine Kinase 122 CK-MB (Mass) 1.25 Troponin I Troponin I, Quant 0.1990 H* NT-Pro-B Natriuret Pep 66617 H Total Protein 7.7 Albumin 3.4 L Globulin 4.3 H Albumin/Globulin Ratio 0.8 L Procalcitonin Arterial Blood Potassium Urine Color Yellow Urine Clarity Hazy Urine pH 5.0 Ur Specific [place] 1.013 Urine Protein Negative Urine Glucose (UA) 1+ H Urine Ketones Negative Urine Blood 1+ H Urine Nitrate Negative Urine Bilirubin Negative Urine Urobilinogen Normal Ur Leukocyte Esterase Neg Urine WBC (Auto) 12 H Urine RBC (Auto) 15 H Urine Bacteria Rare Urine Opiates Screen Negative Urine Methadone Screen Negative Ur Barbiturates Screen Negative Ur Phencyclidine Scrn Negative Ur Amphetamines Screen Negative U Benzodiazepines Scrn Negative U Oth Cocaine Metabols Negative U Cannabinoids Screen Negative Alcohol, Quantitative Blood Type Blood Type Confirm Antibody Screen 03/04/17 03/04/17 03/04/17 20:12 20:15 20:25 WBC RBC Hgb Hct MCV MCH MCHC RDW Plt Count MPV Neut % (Auto) Lymph % (Auto) [place] % (Auto) Eos % (Auto) Baso % (Auto) Neut # Lymph # [place] # Eos # Baso # Neutrophils % (Manual) Band Neutrophils % Lymphocytes % (Manual) Monocytes % (Manual) Platelet Estimate Anisocytosis (manual) PT INR APTT Puncture Site pCO2 pO2 HCO3 ABG pH ABG Total CO2 ABG O2 Saturation ABG Base Excess ABG Hemoglobin ABG Carboxyhemoglobin POC ABG HHb (Measured) ABG Methemoglobin Reji Test ABG Potassium A-a O2 Difference Respiratory Index Hgb O2 Saturation Glucose Lactate Vent Mode Mechanical Rate FiO2 Tidal Volume PEEP Crit Value Called To Crit Value Called By Crit Value Read Back Blood Gas Notified Time Sodium Potassium Chloride Carbon Dioxide Anion Gap BUN Creatinine Est GFR ( Amer) Est GFR (Non-Af Amer) POC Glucose (mg/dL) Random Glucose Lactic Acid Calcium Phosphorus Magnesium 1.8 Total Bilirubin AST ALT Alkaline Phosphatase Total Creatine Kinase 125 CK-MB (Mass) Troponin I Troponin I, Quant NT-Pro-B Natriuret Pep Total Protein Albumin Globulin Albumin/Globulin Ratio Procalcitonin Arterial Blood Potassium Urine Color Urine Clarity Urine pH Ur Specific [place] Urine Protein Urine Glucose (UA) Urine Ketones Urine Blood Urine Nitrate Urine Bilirubin Urine Urobilinogen Ur Leukocyte Esterase Urine WBC (Auto) Urine RBC (Auto) Urine Bacteria Urine Opiates Screen Urine Methadone Screen Ur Barbiturates Screen Ur Phencyclidine Scrn Ur Amphetamines Screen U Benzodiazepines Scrn U Oth Cocaine Metabols U Cannabinoids Screen Alcohol, Quantitative < 10 Blood Type B POSITIVE Blood Type Confirm B POSITIVE Antibody Screen Negative 03/04/17 03/04/17 03/05/17 20:27 21:07 03:00 WBC RBC Hgb Hct MCV MCH MCHC RDW Plt Count MPV Neut % (Auto) Lymph % (Auto) [place] % (Auto) Eos % (Auto) Baso % (Auto) Neut # Lymph # [place] # Eos # Baso # Neutrophils % (Manual) Band Neutrophils % Lymphocytes % (Manual) Monocytes % (Manual) Platelet Estimate Anisocytosis (manual) PT INR APTT Puncture Site Rr Rradial pCO2 41 42 pO2 94 46 L HCO3 10.6 L 17.1 L ABG pH 7.06 L* 7.22 L ABG Total CO2 12.9 L 18.5 L ABG O2 Saturation 95.7 78.0 L ABG Base Excess -18.2 L -9.7 L ABG Hemoglobin 6.7 L ABG Carboxyhemoglobin 1.7 H POC ABG HHb (Measured) 21.6 H ABG Methemoglobin 0.3 Reji Test Unable Pos ABG Potassium 5.7 H A-a O2 Difference 568.0 615.0 Respiratory Index 6.0 13.4 Hgb O2 Saturation 76.4 L Glucose 280 H Lactate 6.7 H* Vent Mode A/c Prvc Mechanical Rate 14 20 FiO2 100.0 100.0 Tidal Volume 500 400 PEEP 5 Crit Value Called To Dr. joseph Crit Value Called By Aquiles talamantes Crit Value Read Back Y Blood Gas Notified Time 2109 Sodium 132.0 Potassium Chloride 105.0 Carbon Dioxide Anion Gap BUN Creatinine Est GFR ( Amer) Est GFR (Non-Af Amer) POC Glucose (mg/dL) 291 H Random Glucose Lactic Acid Calcium Phosphorus Magnesium Total Bilirubin AST ALT Alkaline Phosphatase Total Creatine Kinase CK-MB (Mass) Troponin I Troponin I, Quant NT-Pro-B Natriuret Pep Total Protein Albumin Globulin Albumin/Globulin Ratio Procalcitonin Arterial Blood Potassium 5.7 H Urine Color Urine Clarity Urine pH Ur Specific [place] Urine Protein Urine Glucose (UA) Urine Ketones Urine Blood Urine Nitrate Urine Bilirubin Urine Urobilinogen Ur Leukocyte Esterase Urine WBC (Auto) Urine RBC (Auto) Urine Bacteria Urine Opiates Screen Urine Methadone Screen Ur Barbiturates Screen Ur Phencyclidine Scrn Ur Amphetamines Screen U Benzodiazepines Scrn U Oth Cocaine Metabols U Cannabinoids Screen Alcohol, Quantitative Blood Type Blood Type Confirm Antibody Screen 03/05/17 03/05/17 03/05/17 06:24 06:51 06:51 WBC RBC Hgb Hct MCV MCH MCHC RDW Plt Count MPV Neut % (Auto) Lymph % (Auto) [place] % (Auto) Eos % (Auto) Baso % (Auto) Neut # Lymph # [place] # Eos # Baso # Neutrophils % (Manual) Band Neutrophils % Lymphocytes % (Manual) Monocytes % (Manual) Platelet Estimate Anisocytosis (manual) PT INR APTT Puncture Site pCO2 pO2 HCO3 ABG pH ABG Total CO2 ABG O2 Saturation ABG Base Excess ABG Hemoglobin ABG Carboxyhemoglobin POC ABG HHb (Measured) ABG Methemoglobin Reji Test ABG Potassium A-a O2 Difference Respiratory Index Hgb O2 Saturation Glucose Lactate Vent Mode Mechanical Rate FiO2 Tidal Volume PEEP Crit Value Called To Crit Value Called By Crit Value Read Back Blood Gas Notified Time Sodium Potassium Chloride Carbon Dioxide Anion Gap BUN Creatinine Est GFR ( Amer) Est GFR (Non-Af Amer) POC Glucose (mg/dL) 388 H Random Glucose Lactic Acid 4.2 H* Calcium Phosphorus Magnesium Total Bilirubin AST ALT Alkaline Phosphatase Total Creatine Kinase CK-MB (Mass) Troponin I 0.3180 H* Troponin I, Quant NT-Pro-B Natriuret Pep Total Protein Albumin Globulin Albumin/Globulin Ratio Procalcitonin Arterial Blood Potassium Urine Color Urine Clarity Urine pH Ur Specific [place] Urine Protein Urine Glucose (UA) Urine Ketones Urine Blood Urine Nitrate Urine Bilirubin Urine Urobilinogen Ur Leukocyte Esterase Urine WBC (Auto) Urine RBC (Auto) Urine Bacteria Urine Opiates Screen Urine Methadone Screen Ur Barbiturates Screen Ur Phencyclidine Scrn Ur Amphetamines Screen U Benzodiazepines Scrn U Oth Cocaine Metabols U Cannabinoids Screen Alcohol, Quantitative Blood Type Blood Type Confirm Antibody Screen 03/05/17 03/05/17 03/05/17 09:00 09:00 09:00 WBC 18.6 H D RBC 2.55 L Hgb 7.8 L Hct 22.9 L MCV 89.7 D MCH 30.6 MCHC 34.1 RDW 15.4 H Plt Count 200 MPV 9.4 Neut % (Auto) 92.9 H Lymph % (Auto) 2.1 L [place] % (Auto) 4.6 Eos % (Auto) 0.0 Baso % (Auto) 0.4 Neut # 17.3 H Lymph # 0.4 L [place] # 0.9 H Eos # 0.0 Baso # 0.1 Neutrophils % (Manual) 90 H Band Neutrophils % 5 H Lymphocytes % (Manual) 2 L Monocytes % (Manual) 3 Platelet Estimate Normal Anisocytosis (manual) Slight PT INR APTT Puncture Site pCO2 pO2 HCO3 ABG pH ABG Total CO2 ABG O2 Saturation ABG Base Excess ABG Hemoglobin ABG Carboxyhemoglobin POC ABG HHb (Measured) ABG Methemoglobin Reji Test ABG Potassium A-a O2 Difference Respiratory Index Hgb O2 Saturation Glucose Lactate Vent Mode Mechanical Rate FiO2 Tidal Volume PEEP Crit Value Called To Crit Value Called By Crit Value Read Back Blood Gas Notified Time Sodium 130 L Potassium 7.0 H* D Chloride 97 L Carbon Dioxide 22 Anion Gap 18 BUN 54 H Creatinine 2.6 H Est GFR ( Amer) 32 Est GFR (Non-Af Amer) 26 POC Glucose (mg/dL) Random Glucose 337 H Lactic Acid Calcium 7.2 L Phosphorus 6.5 H Magnesium 1.3 L Total Bilirubin 1.5 H AST 966 H D ALT 302 H D Alkaline Phosphatase 112 Total Creatine Kinase CK-MB (Mass) Troponin I Troponin I, Quant NT-Pro-B Natriuret Pep Total Protein 6.8 Albumin 3.5 Globulin 3.3 Albumin/Globulin Ratio 1.1 Procalcitonin 1.65 H Arterial Blood Potassium Urine Color Urine Clarity Urine pH Ur Specific [place] Urine Protein Urine Glucose (UA) Urine Ketones Urine Blood Urine Nitrate Urine Bilirubin Urine Urobilinogen Ur Leukocyte Esterase Urine WBC (Auto) Urine RBC (Auto) Urine Bacteria Urine Opiates Screen Urine Methadone Screen Ur Barbiturates Screen Ur Phencyclidine Scrn Ur Amphetamines Screen U Benzodiazepines Scrn U Oth Cocaine Metabols U Cannabinoids Screen Alcohol, Quantitative Blood Type Blood Type Confirm Antibody Screen 03/05/17 03/05/17 16:33 18:20 WBC RBC Hgb Hct MCV MCH MCHC RDW Plt Count MPV Neut % (Auto) Lymph % (Auto) [place] % (Auto) Eos % (Auto) Baso % (Auto) Neut # Lymph # [place] # Eos # Baso # Neutrophils % (Manual) Band Neutrophils % Lymphocytes % (Manual) Monocytes % (Manual) Platelet Estimate Anisocytosis (manual) PT INR APTT Puncture Site pCO2 pO2 HCO3 ABG pH ABG Total CO2 ABG O2 Saturation ABG Base Excess ABG Hemoglobin ABG Carboxyhemoglobin POC ABG HHb (Measured) ABG Methemoglobin Reji Test ABG Potassium A-a O2 Difference Respiratory Index Hgb O2 Saturation Glucose Lactate Vent Mode Mechanical Rate FiO2 Tidal Volume PEEP Crit Value Called To Crit Value Called By Crit Value Read Back Blood Gas Notified Time Sodium 131 L Potassium 6.6 H* Chloride 95 L Carbon Dioxide 21 L Anion Gap 22 H BUN 54 H Creatinine 2.7 H Est GFR ( Amer) 30 Est GFR (Non-Af Amer) 25 POC Glucose (mg/dL) 271 H Random Glucose 239 H Lactic Acid Calcium 7.5 L Phosphorus 4.6 H Magnesium 1.3 L Total Bilirubin 0.9 AST 742 H D ALT 265 H Alkaline Phosphatase 106 Total Creatine Kinase CK-MB (Mass) Troponin I 0.3920 H* Troponin I, Quant NT-Pro-B Natriuret Pep Total Protein 7.5 Albumin 3.4 L Globulin 4.2 H Albumin/Globulin Ratio 0.8 L Procalcitonin Arterial Blood Potassium Urine Color Urine Clarity Urine pH Ur Specific [place] Urine Protein Urine Glucose (UA) Urine Ketones Urine Blood Urine Nitrate Urine Bilirubin Urine Urobilinogen Ur Leukocyte Esterase Urine WBC (Auto) Urine RBC (Auto) Urine Bacteria Urine Opiates Screen Urine Methadone Screen Ur Barbiturates Screen Ur Phencyclidine Scrn Ur Amphetamines Screen U Benzodiazepines Scrn U Oth Cocaine Metabols U Cannabinoids Screen Alcohol, Quantitative Blood Type Blood Type Confirm Antibody Screen
[2017-03-05] MEDS ORDERED: Albuterol-Ipratrop 3 mg / 0.5 (3 ml) UD INH SCH (20:00)
[2017-03-05] MEDS: Albuterol-Ipratrop 3 mg / 0.5 (3 ml) UD INH SCH ×2 (20:11→20:23)
[2017-03-05] MEDS ORDERED: DOPamine 400mg/250ml D5W 400 MG/250 ML BAG IV PRN ×2 (20:42→20:45)
[2017-03-05] MEDS ORDERED: Propofol 10 mg/ml 100 MG/10 ML VIAL IV PRN (20:50)
--- NOTE | 2017-03-05 21:47 | CP.PCM.CON ---
History of Present Illness - History of Present Illness History of Present Illness: Patient admitted with cardiac arrest On pressors and and unresponsive to commands Past Patient History - Past Medical History & Family History Past Medical History?: Yes - Past Social History Smoking Status: UNKNOWN Chewing Tobacco Use: No Cigar Use: No Alcohol: None Drugs: Denies Home Situation {Lives}: Alone - CARDIAC Hx Hypertension: Yes - PULMONARY Hx Respiratory Disorders: No - NEUROLOGICAL Hx Neurological Disorder: No - HEENT Hx HEENT Problems: No - RENAL Hx Chronic Kidney Disease: Yes Hx Renal Failure: Yes - ENDOCRINE/METABOLIC Hx Endocrine Disorders: Yes Hx Diabetes Mellitus Type 2: Yes - INTEGUMENTARY Hx Dermatological Problems: Yes - MUSCULOSKELETAL/RHEUMATOLOGICAL Hx Musculoskeletal Disorders: No - GASTROINTESTINAL Hx Gastrointestinal Disorders: No - GENITOURINARY/GYNECOLOGICAL Hx Genitourinary Disorders: No - PSYCHIATRIC Hx Substance Use: No - SURGICAL HISTORY Other/Comment: Great toe left foot amputated - ANESTHESIA Hx Anesthesia: Yes (UNABLE TO OBTAIN) Hx Anesthesia Reactions: No Meds Allergies/Adverse Reactions: Allergies Allergy/AdvReac Type Severity Reaction Status Date / Time Unobtainable Allergy Verified 03/04/17 20:17 - Medications Medications: Current Medications Albuterol/Ipratropium (Duoneb 3 Mg/0.5 Mg (3 Ml) Ud) 3 ml INH RQ6 TENA Last Admin: 03/05/17 20:23 Dose: Not Given Furosemide (Lasix) 40 mg IVP BID [facility] Last Admin: 03/05/17 18:55 Dose: 40 mg Heparin Sodium (Porcine) (Heparin) 5,000 units SC Q8 [facility] Last Admin: 03/05/17 21:14 Dose: 5,000 units Piperacillin Sod/Tazobactam Sod (Zosyn 2.25 Gm Iv Premix) 2.25 gm in 50 mls @ 100 mls/hr IVPB Q6H [facility] Last Admin: 03/05/17 14:49 Dose: 100 mls/hr Vancomycin HCl/Dextrose (Vancocin) 500 mg in 100 mls @ 166.6 mls/hr IVPB Q12H [facility] Stop: 03/09/17 22:31 Last Admin: 03/05/17 21:30 Dose: 166.6 mls/hr Norepinephrine Bitartrate 8 mg (/ Sodium Chloride) 258 mls @ 7.74 mls/hr IV .Q24H PRN; Protocol; 4 MCG/MIN PRN Reason: TITRATE PER MD ORDER Last Admin: 03/05/17 15:00 Dose: 11.62 mcg/min, 22.5 mls/hr Levetiracetam 500 mg/ Sodium (Chloride) 105 mls @ 420 mls/hr IVPB Q12H [facility] Last Admin: 03/05/17 14:25 Dose: 420 mls/hr Azithromycin 500 mg/ Sodium (Chloride) 250 mls @ 250 mls/hr IVPB DAILY [facility] Last Admin: 03/05/17 14:35 Dose: 250 mls/hr Dopamine HCl/Dextrose (Dopamine 400mg/250ml D5w) 400 mg in 250 mls @ 15.225 mls /hr IV .[id number] PRN; Protocol; 5 MCG/KG/MIN PRN Reason: TITRATE PER MD ORDER Last Titration: 03/05/17 21:00 Dose: 6 mcg/kg/min, 18.27 mls/hr Propofol (Diprivan) 1,000 mg in 100 mls @ 2.436 mls/hr IV .Q24H PRN; Protocol; 5 MCG/KG/MIN PRN Reason: TITRATE PER MD ORDER Last Titration: 03/05/17 20:00 Dose: 14.98 mcg/kg/min, 7.3 mls/hr Insulin Human Regular (Novolin R) 0 unit SC Q6H TENA PRN Reason: Protocol Last Admin: 03/05/17 19:00 Dose: 4 unit Lorazepam (Ativan) 1 mg IVP Q2H PRN PRN Reason: Seizure activity Last Admin: 03/05/17 20:20 Dose: 1 mg Pantoprazole Sodium (Protonix Inj) 40 mg IVP DAILY [facility] Last Admin: 03/05/17 11:07 Dose: 40 mg Sodium Polystyrene Sulfonate (Kayexalate Susp) 15 gm PO ONCE ONE Stop: 03/05/17 22:01 Last Admin: 03/05/17 21:11 Dose: 15 gm Results - Vital Signs Recent Vital Signs: Last Vital Signs Temp 98.8 F 03/05/17 15:00 Pulse 119 H 03/05/17 19:08 Resp 27 H 03/05/17 19:08 BP 128/77 03/05/17 19:08 Pulse Ox 94 L 03/05/17 19:08 - Labs Result Diagrams: 03/05/17 09:00 03/05/17 16:33 Labs: Laboratory Results - last 24 hr 03/04/17 03/05/17 03/05/17 20:15 03:00 06:24 WBC RBC Hgb Hct MCV MCH MCHC RDW Plt Count MPV Neut % (Auto) Lymph % (Auto) [place] % (Auto) Eos % (Auto) Baso % (Auto) Neut # Lymph # [place] # Eos # Baso # Neutrophils % (Manual) Band Neutrophils % Lymphocytes % (Manual) Monocytes % (Manual) Platelet Estimate Anisocytosis (manual) Puncture Site Rradial pCO2 42 pO2 46 L HCO3 17.1 L ABG pH 7.22 L ABG Total CO2 18.5 L ABG O2 Saturation 78.0 L ABG Base Excess -9.7 L ABG Hemoglobin 6.7 L ABG Carboxyhemoglobin 1.7 H POC ABG HHb (Measured) 21.6 H ABG Methemoglobin 0.3 Reji Test Pos A-a O2 Difference 615.0 Respiratory Index 13.4 Hgb O2 Saturation 76.4 L Vent Mode Prvc Mechanical Rate 20 FiO2 100.0 Tidal Volume 400 Sodium Potassium Chloride Carbon Dioxide Anion Gap BUN Creatinine Est GFR ( Amer) Est GFR (Non-Af Amer) POC Glucose (mg/dL) 388 H Random Glucose Lactic Acid Calcium Phosphorus Magnesium Total Bilirubin AST ALT Alkaline Phosphatase Troponin I Total Protein Albumin Globulin Albumin/Globulin Ratio Procalcitonin Influenza Typ A,B (EIA) Blood Type B POSITIVE Blood Type Confirm B POSITIVE Antibody Screen Negative 03/05/17 03/05/17 03/05/17 06:51 06:51 09:00 WBC RBC Hgb Hct MCV MCH MCHC RDW Plt Count MPV Neut % (Auto) Lymph % (Auto) [place] % (Auto) Eos % (Auto) Baso % (Auto) Neut # Lymph # [place] # Eos # Baso # Neutrophils % (Manual) Band Neutrophils % Lymphocytes % (Manual) Monocytes % (Manual) Platelet Estimate Anisocytosis (manual) Puncture Site pCO2 pO2 HCO3 ABG pH ABG Total CO2 ABG O2 Saturation ABG Base Excess ABG Hemoglobin ABG Carboxyhemoglobin POC ABG HHb (Measured) ABG Methemoglobin Reji Test A-a O2 Difference Respiratory Index Hgb O2 Saturation Vent Mode Mechanical Rate FiO2 Tidal Volume Sodium 130 L Potassium 7.0 H* D Chloride 97 L Carbon Dioxide 22 Anion Gap 18 BUN 54 H Creatinine 2.6 H Est GFR ( Amer) 32 Est GFR (Non-Af Amer) 26 POC Glucose (mg/dL) Random Glucose 337 H Lactic Acid 4.2 H* Calcium 7.2 L Phosphorus 6.5 H Magnesium 1.3 L Total Bilirubin 1.5 H AST 966 H D ALT 302 H D Alkaline Phosphatase 112 Troponin I 0.3180 H* Total Protein 6.8 Albumin 3.5 Globulin 3.3 Albumin/Globulin Ratio 1.1 Procalcitonin Influenza Typ A,B (EIA) Blood Type Blood Type Confirm Antibody Screen 03/05/17 03/05/17 03/05/17 09:00 09:00 16:33 WBC 18.6 H D RBC 2.55 L Hgb 7.8 L Hct 22.9 L MCV 89.7 D MCH 30.6 MCHC 34.1 RDW 15.4 H Plt Count 200 MPV 9.4 Neut % (Auto) 92.9 H Lymph % (Auto) 2.1 L [place] % (Auto) 4.6 Eos % (Auto) 0.0 Baso % (Auto) 0.4 Neut # 17.3 H Lymph # 0.4 L [place] # 0.9 H Eos # 0.0 Baso # 0.1 Neutrophils % (Manual) 90 H Band Neutrophils % 5 H Lymphocytes % (Manual) 2 L Monocytes % (Manual) 3 Platelet Estimate Normal Anisocytosis (manual) Slight Puncture Site pCO2 pO2 HCO3 ABG pH ABG Total CO2 ABG O2 Saturation ABG Base Excess ABG Hemoglobin ABG Carboxyhemoglobin POC ABG HHb (Measured) ABG Methemoglobin Reji Test A-a O2 Difference Respiratory Index Hgb O2 Saturation Vent Mode Mechanical Rate FiO2 Tidal Volume Sodium 131 L Potassium 6.6 H* Chloride 95 L Carbon Dioxide 21 L Anion Gap 22 H BUN 54 H Creatinine 2.7 H Est GFR ( Amer) 30 Est GFR (Non-Af Amer) 25 POC Glucose (mg/dL) Random Glucose 239 H Lactic Acid Calcium 7.5 L Phosphorus 4.6 H Magnesium 1.3 L Total Bilirubin 0.9 AST 742 H D ALT 265 H Alkaline Phosphatase 106 Troponin I 0.3920 H* Total Protein 7.5 Albumin 3.4 L Globulin 4.2 H Albumin/Globulin Ratio 0.8 L Procalcitonin 1.65 H Influenza Typ A,B (EIA) Blood Type Blood Type Confirm Antibody Screen 03/05/17 03/05/17 18:20 19:06 WBC RBC Hgb Hct MCV MCH MCHC RDW Plt Count MPV Neut % (Auto) Lymph % (Auto) [place] % (Auto) Eos % (Auto) Baso % (Auto) Neut # Lymph # [place] # Eos # Baso # Neutrophils % (Manual) Band Neutrophils % Lymphocytes % (Manual) Monocytes % (Manual) Platelet Estimate Anisocytosis (manual) Puncture Site pCO2 pO2 HCO3 ABG pH ABG Total CO2 ABG O2 Saturation ABG Base Excess ABG Hemoglobin ABG Carboxyhemoglobin POC ABG HHb (Measured) ABG Methemoglobin Reji Test A-a O2 Difference Respiratory Index Hgb O2 Saturation Vent Mode Mechanical Rate FiO2 Tidal Volume Sodium Potassium Chloride Carbon Dioxide Anion Gap BUN Creatinine Est GFR ( Amer) Est GFR (Non-Af Amer) POC Glucose (mg/dL) 271 H Random Glucose Lactic Acid Calcium Phosphorus Magnesium Total Bilirubin AST ALT Alkaline Phosphatase Troponin I Total Protein Albumin Globulin Albumin/Globulin Ratio Procalcitonin Influenza Typ A,B (EIA) Negative for flu a/b Blood Type Blood Type Confirm Antibody Screen
--- NOTE | 2017-03-05 22:12 | CP.PCM.HP ---
History of Present Illness - History of Present Illness History of Present Illness: A 52-year-old female with PMHHTN, DM, kidney disease presented to the ER by EMS for evaluation of shortness of breath and asystole. As per the EMS history, the patient called 911 due to complaint of shortness of breath. When the medics arrived, they found him pale, diaphoretic and he collapsed in front of them. CPR was given for 15-20 minutes and 3 doses of epinephrine were given intravenously. His circulation was regained on the field , but he was still unresponsive and apneic. He was intubated and then brought to the hospital. In ICU he had another cardiac arrest in asystole. He was again resuscitated as per the ACLS protocol with chest compressions and IV epinephrine 3 every 3 minutes. His acidosis and hyperkalemia were simultaneously treated.In the ICU he had a third cardiac arrest and he again received chest compressions and IV epinephrine according to the ACLS protocol. This lasted for 10 minutes. He was given IV inotropes due to his low blood pressure and to maintain circulation and pulse. Past Patient History - Past Medical History & Family History Past Medical History?: Yes - Past Social History Smoking Status: UNKNOWN Chewing Tobacco Use: No Cigar Use: No Alcohol: None Drugs: Denies Home Situation {Lives}: Alone - CARDIAC Hx Hypertension: Yes - PULMONARY Hx Respiratory Disorders: No - NEUROLOGICAL Hx Neurological Disorder: No - HEENT Hx HEENT Problems: No - RENAL Hx Chronic Kidney Disease: Yes Hx Renal Failure: Yes - ENDOCRINE/METABOLIC Hx Endocrine Disorders: Yes Hx Diabetes Mellitus Type 2: Yes - INTEGUMENTARY Hx Dermatological Problems: Yes - MUSCULOSKELETAL/RHEUMATOLOGICAL Hx Musculoskeletal Disorders: No - GASTROINTESTINAL Hx Gastrointestinal Disorders: No - GENITOURINARY/GYNECOLOGICAL Hx Genitourinary Disorders: No - PSYCHIATRIC Hx Substance Use: No - SURGICAL HISTORY Other/Comment: Great toe left foot amputated - ANESTHESIA Hx Anesthesia: Yes (UNABLE TO OBTAIN) Hx Anesthesia Reactions: No Meds Allergies/Adverse Reactions: Allergies Allergy/AdvReac Type Severity Reaction Status Date / Time Unobtainable Allergy Verified 03/04/17 20:17 Results - Vital Signs Recent Vital Signs: Last Vital Signs Temp 98.8 F 03/05/17 15:00 Pulse 119 H 03/05/17 19:08 Resp 27 H 03/05/17 19:08 BP 128/77 03/05/17 19:08 Pulse Ox 94 L 03/05/17 19:08 - Labs Result Diagrams: 03/16/17 06:04 03/16/17 06:04 Labs: Laboratory Results - last 24 hr 03/04/17 03/05/17 03/05/17 20:15 03:00 06:24 WBC RBC Hgb Hct MCV MCH MCHC RDW Plt Count MPV Neut % (Auto) Lymph % (Auto) [place] % (Auto) Eos % (Auto) Baso % (Auto) Neut # Lymph # [place] # Eos # Baso # Neutrophils % (Manual) Band Neutrophils % Lymphocytes % (Manual) Monocytes % (Manual) Platelet Estimate Anisocytosis (manual) Puncture Site Rradial pCO2 42 pO2 46 L HCO3 17.1 L ABG pH 7.22 L ABG Total CO2 18.5 L ABG O2 Saturation 78.0 L ABG Base Excess -9.7 L ABG Hemoglobin 6.7 L ABG Carboxyhemoglobin 1.7 H POC ABG HHb (Measured) 21.6 H ABG Methemoglobin 0.3 Reji Test Pos A-a O2 Difference 615.0 Respiratory Index 13.4 Hgb O2 Saturation 76.4 L Vent Mode Prvc Mechanical Rate 20 FiO2 100.0 Tidal Volume 400 Sodium Potassium Chloride Carbon Dioxide Anion Gap BUN Creatinine Est GFR ( Amer) Est GFR (Non-Af Amer) POC Glucose (mg/dL) 388 H Random Glucose Lactic Acid Calcium Phosphorus Magnesium Total Bilirubin AST ALT Alkaline Phosphatase Troponin I Total Protein Albumin Globulin Albumin/Globulin Ratio Procalcitonin Influenza Typ A,B (EIA) Blood Type B POSITIVE Blood Type Confirm B POSITIVE Antibody Screen Negative 03/05/17 03/05/17 03/05/17 06:51 06:51 09:00 WBC RBC Hgb Hct MCV MCH MCHC RDW Plt Count MPV Neut % (Auto) Lymph % (Auto) [place] % (Auto) Eos % (Auto) Baso % (Auto) Neut # Lymph # [place] # Eos # Baso # Neutrophils % (Manual) Band Neutrophils % Lymphocytes % (Manual) Monocytes % (Manual) Platelet Estimate Anisocytosis (manual) Puncture Site pCO2 pO2 HCO3 ABG pH ABG Total CO2 ABG O2 Saturation ABG Base Excess ABG Hemoglobin ABG Carboxyhemoglobin POC ABG HHb (Measured) ABG Methemoglobin Reji Test A-a O2 Difference Respiratory Index Hgb O2 Saturation Vent Mode Mechanical Rate FiO2 Tidal Volume Sodium 130 L Potassium 7.0 H* D Chloride 97 L Carbon Dioxide 22 Anion Gap 18 BUN 54 H Creatinine 2.6 H Est GFR ( Amer) 32 Est GFR (Non-Af Amer) 26 POC Glucose (mg/dL) Random Glucose 337 H Lactic Acid 4.2 H* Calcium 7.2 L Phosphorus 6.5 H Magnesium 1.3 L Total Bilirubin 1.5 H AST 966 H D ALT 302 H D Alkaline Phosphatase 112 Troponin I 0.3180 H* Total Protein 6.8 Albumin 3.5 Globulin 3.3 Albumin/Globulin Ratio 1.1 Procalcitonin Influenza Typ A,B (EIA) Blood Type Blood Type Confirm Antibody Screen 03/05/17 03/05/17 03/05/17 09:00 09:00 16:33 WBC 18.6 H D RBC 2.55 L Hgb 7.8 L Hct 22.9 L MCV 89.7 D MCH 30.6 MCHC 34.1 RDW 15.4 H Plt Count 200 MPV 9.4 Neut % (Auto) 92.9 H Lymph % (Auto) 2.1 L [place] % (Auto) 4.6 Eos % (Auto) 0.0 Baso % (Auto) 0.4 Neut # 17.3 H Lymph # 0.4 L [place] # 0.9 H Eos # 0.0 Baso # 0.1 Neutrophils % (Manual) 90 H Band Neutrophils % 5 H Lymphocytes % (Manual) 2 L Monocytes % (Manual) 3 Platelet Estimate Normal Anisocytosis (manual) Slight Puncture Site pCO2 pO2 HCO3 ABG pH ABG Total CO2 ABG O2 Saturation ABG Base Excess ABG Hemoglobin ABG Carboxyhemoglobin POC ABG HHb (Measured) ABG Methemoglobin Reji Test A-a O2 Difference Respiratory Index Hgb O2 Saturation Vent Mode Mechanical Rate FiO2 Tidal Volume Sodium 131 L Potassium 6.6 H* Chloride 95 L Carbon Dioxide 21 L Anion Gap 22 H BUN 54 H Creatinine 2.7 H Est GFR ( Amer) 30 Est GFR (Non-Af Amer) 25 POC Glucose (mg/dL) Random Glucose 239 H Lactic Acid Calcium 7.5 L Phosphorus 4.6 H Magnesium 1.3 L Total Bilirubin 0.9 AST 742 H D ALT 265 H Alkaline Phosphatase 106 Troponin I 0.3920 H* Total Protein 7.5 Albumin 3.4 L Globulin 4.2 H Albumin/Globulin Ratio 0.8 L Procalcitonin 1.65 H Influenza Typ A,B (EIA) Blood Type Blood Type Confirm Antibody Screen 03/05/17 03/05/17 18:20 19:06 WBC RBC Hgb Hct MCV MCH MCHC RDW Plt Count MPV Neut % (Auto) Lymph % (Auto) [place] % (Auto) Eos % (Auto) Baso % (Auto) Neut # Lymph # [place] # Eos # Baso # Neutrophils % (Manual) Band Neutrophils % Lymphocytes % (Manual) Monocytes % (Manual) Platelet Estimate Anisocytosis (manual) Puncture Site pCO2 pO2 HCO3 ABG pH ABG Total CO2 ABG O2 Saturation ABG Base Excess ABG Hemoglobin ABG Carboxyhemoglobin POC ABG HHb (Measured) ABG Methemoglobin Reji Test A-a O2 Difference Respiratory Index Hgb O2 Saturation Vent Mode Mechanical Rate FiO2 Tidal Volume Sodium Potassium Chloride Carbon Dioxide Anion Gap BUN Creatinine Est GFR ( Amer) Est GFR (Non-Af Amer) POC Glucose (mg/dL) 271 H Random Glucose Lactic Acid Calcium Phosphorus Magnesium Total Bilirubin AST ALT Alkaline Phosphatase Troponin I Total Protein Albumin Globulin Albumin/Globulin Ratio Procalcitonin Influenza Typ A,B (EIA) Negative for flu a/b Blood Type Blood Type Confirm Antibody Screen
[2017-03-05 22:34] LABS: ABG ALLEN TEST POS; ABG MECHANICAL RATE 24; ARTERIAL BLOOD GAS MODE PRVC; ATERIAL BLOOD GAS PEEP 8; DRAW SITE RRADIAL
[2017-03-05] MEDS: Acetaminophen 650mg/20.3ml solution UD PO PRN (23:05)
[2017-03-06] MEDS: (Novolin R) Insulin Human Regular 100 units/ml vial SC SCH ×4 (00:24→17:55)
[2017-03-06] MEDS: Propofol 10 mg/ml 1,000 MG/100 ML VIAL IV PRN ×3 (00:28→22:30)
[2017-03-06] MEDS: Albuterol-Ipratrop 3 mg / 0.5 (3 ml) UD INH SCH ×4 (01:20→19:08)
[2017-03-06] MEDS: levETIRAcetam 500 MG in Sodium Chloride 0.9% 100 ML IVPB SCH ×2 (05:47→14:22)
[2017-03-06] MEDS: Piperacill/Tazo 2.25gm in Dex 2.25 GM/50 ML BAG IVPB SCH ×4 (05:48→21:53)
[2017-03-06 06:19] LABS: BASO % 0.1 % (0.0-2.0); HEMATOCRIT 20.6 % (35.0-51.0); LYMPH # 0.8 K/uL (1.0-4.3); LYMPH % 5.7 % (20.0-40.0); MEAN CELL VOLUME 88.4 fL (80.0-94.0); MEAN CORPUSCULAR HEMOGLOBIN 29.9 pg (27.0-31.0); MEAN CORPUSCULAR HGB CONC 33.8 g/dL (33.0-37.0); MEAN PLATELET VOLUME 8.9 fL (7.2-11.7); MONO # 0.8 K/uL (0.0-0.8); MONO % 6.2 % (0.0-10.0); NRBC % 0.1 % (0.0-2.0); PLATELET COUNT 165 K/uL (130-400); RED CELL DISTRIBUTION WIDTH 15.3 % (11.5-14.5); WHITE BLOOD COUNT 13.7 K/uL (4.8-10.8)
[2017-03-06 06:36] LABS: POTASSIUM 4.5 mmol/L (3.6-5.2)
[2017-03-06 06:39] LABS: ALB/GLOB RATIO 0.8 (1.0-2.1); CALCIUM 7.6 mg/dl (8.6-10.4); MAGNESIUM 1.5 mg/dL (1.6-2.3); PHOSPHOROUS 6.2 mg/dL (2.5-4.5); TOTAL PROTEIN 7.1 g/dL (6.3-8.3)
--- NOTE | 2017-03-06 07:19 | CON ---
DATE: 03/05/2017 REASON FOR CONSULTATION: Unresponsiveness. CHIEF COMPLAINT: The patient was brought into [facility] by EMS with history of the patient found collapsing on the floor, been witnessed by the EMS and he was intubated at the scene with 15 minutes of severe period. In the emergency room, the patient was stabilized and transferred to ICU and he had another episode of cardiopulmonary arrest. Since then, the patient did not wake up. From neurological point of view, I was called in to evaluate him to further management. HISTORY OF PRESENT ILLNESS: The patient is an unfortunate 52-year-old male, been having significant medical history of hypertension, diabetes mellitus, chronic renal failure, who called the EMS because he did not feel good as per the history. At the time EMS arrived, he was found to be pale and diaphoretic. He was collapsed in front of the EMS. The patient was resuscitated for about 15 minutes and epinephrine was given. They regained the pulse rate and the patient was brought into emergency room after intubation at the field. In the ICU, the patient did have another episode of cardiopulmonary arrest and he was resuscitated by giving bicarbonate and epinephrine again. The patient became acidotic and hyperkalemic as well. PAST MEDICAL HISTORY: Hypertension, diabetes mellitus, chronic renal failure, and dyslipidemia. PERSONAL HISTORY: No history of documented smoking and alcohol use. REVIEW OF SYSTEMS: A 16-point system being reviewed. Neurostatus continuous jerky movement. PHYSICAL EXAMINATION VITAL SIGNS: Blood pressure of 117/69, mean arterial pressure of 78, pulse rate of 100, temperature of 95.6, and respiratory rate of 37, on vent. GENERAL: The patient is not on sedation. The patient is deeply comatose. HEENT: Eyes are partially opened. Unfortunately opening eyelid. Pupils are reacting to light. No corneal reflex. No oculocephalic reflex, showing dysconjugate gaze. No gag on manipulating the ET tube. All extremities are flaccid, areflexic. Plantars are mute. The patient is examined in the presence of his family members. DIAGNOSTIC WORKUP: CT of the head revealed no acute pathology is noted. EKG shows sinus tachycardia. LABORATORY DATA: Blood workup: WBC of 10.5, hemoglobin of 6.9, hematocrit of 21.4, and platelets of 223. PT of 15.6, INR of 1.4, and PTT of 31. Sodium of 130, potassium of 5.4, chloride of 98, bicarbonate of 13, creatinine of 2.7, glucose of 388, lactic acid of 4.2, magnesium of 1.8, and calcium of 8.2. AST of 290 and ALT of 130. Urine shows 1+ glucosuria and 1+ hematuria. Urine toxicology screen negative. CONCLUSION: The patient has been suffering from the following and from neurological point of view. 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 The patient has global cerebral dysfunction except pupillary reflex, the patient does not show any physiological response on primary exam today. RECOMMENDATIONS: 1. Repeat CT of the head without contrast to assess his anoxic damage to the brain. 2. The patient can be given propofol and titrated to control his myoclonic seizures. 3. Keppra also given for 1000 mg twice a day to control his seizures. 4. EEG. Discussion with the family members, family members aware of his critical illness, which is irreversible at present. The patient will be followed with you. Ronnie Rascon MD [facility]
[2017-03-06 08:52] LABS: NEUTROPHIL 88 % (50-75); TOTAL CELLS COUNTED 100
[2017-03-06 08:53] LABS: LARGE PLATELETS PRESENT
--- NOTE | 2017-03-06 09:31 | RAD ---
Chest x-ray single frontal view History: Intubated. Comparison: 03/05/2017 Findings: Lines and tubes stable position. Prominent dense consolidative opacities throughout both lungs. Increased consolidative changes in the right paratracheal region. Suggestion of small bilateral pleural effusions. Top normal heart size. Degenerative changes in the spine. Impression: Lines and tubes stable position. Prominent dense consolidative opacities throughout both lungs. Increased consolidative changes in the right paratracheal region. Suggestion of small bilateral pleural effusions. Top normal heart size.
[2017-03-06 09:35] LABS: ABG ALLEN TEST POS; ABG MECHANICAL RATE 18; ARTERIAL BLOOD GAS MODE PRVC; ATERIAL BLOOD GAS PEEP 8; DRAW SITE RR
--- NOTE | 2017-03-06 09:43 | EEG ---
DATE: 03/05/2017 This is a 16-channel electroencephalogram of comatose adult. The study was performed at bedside. This study shows burst suppression with intermittent paroxysmal polyphasic activities lasted for about 2 to 3 seconds which is seen periodically from the beginning to the end. The photic stimulation did not evoke driving response noted at 2 to 20 Hz. IMPRESSION: This is an abnormal electroencephalogram of comatose adult. The study shows periodic paroxysmal activities lasting for about 2 to 3 seconds with intermittent burst suppression suggestive of status epileptiform activities. Please correlate the finding with the neurological and radiological studies. Ronnie Rascon MD
[2017-03-06] MEDS: Magnesium Sulfate 1 gm in D5W 1 GM/100 ML BAG IVPB SCH ×2 (10:28→10:58)
[2017-03-06] MEDS: Azithromycin 500 MG in Sodium Chloride 0.9% 250 ML IVPB SCH (10:55)
[2017-03-06] MEDS: Vancomycin 500mg/D5W 100 ml 500 MG/100 ML BAG IVPB SCH ×2 (10:59→22:03)
--- NOTE | 2017-03-06 11:10 | CP.PCM.CON ---
History of Present Illness - History of Present Illness History of Present Illness: Palliative consult Requested by Doctor Lugo Reason: Goals of care discussion Patient is a 53 yo male admitted from home, S/P cardiac arrest. Per record, patient called 911 with SOB which began earlier in the day. By the time EMS arrived, patient had collapsed in the hallway. After 3 round of Epi and CPR the pulse has regained, but patient remained comatouse. Patient was intubated on the field and transfered to to ED. The Ct had was negative for intracranial bleeding and the EEG showed abnormal findings. PMH: DM, S/P toes amputation Soc. Hx: single, lives alone, has two sisters, one in [place], one in [place]. The sister from [place] is visiting at present [facility]. Hx: Father from [place] Review of Systems - Review of Systems All systems: reviewed and no additional remarkable complaints except Review of Systems: ROS obtained from nursing. Per nursing patient remained unresponsive to stimuli. Past Patient History - Past Medical History & Family History Past Medical History?: Yes - Past Social History Smoking Status: UNKNOWN Chewing Tobacco Use: No Cigar Use: No Alcohol: None Drugs: Denies Home Situation {Lives}: Alone - CARDIAC Hx Hypertension: Yes - PULMONARY Hx Respiratory Disorders: No - NEUROLOGICAL Hx Neurological Disorder: No - HEENT Hx HEENT Problems: No - RENAL Hx Chronic Kidney Disease: Yes Hx Renal Failure: Yes - ENDOCRINE/METABOLIC Hx Endocrine Disorders: Yes Hx Diabetes Mellitus Type 2: Yes - INTEGUMENTARY Hx Dermatological Problems: Yes - MUSCULOSKELETAL/RHEUMATOLOGICAL Hx Musculoskeletal Disorders: No - GASTROINTESTINAL Hx Gastrointestinal Disorders: No - GENITOURINARY/GYNECOLOGICAL Hx Genitourinary Disorders: No - PSYCHIATRIC Hx Substance Use: No - SURGICAL HISTORY Other/Comment: Great toe left foot amputated - ANESTHESIA Hx Anesthesia: Yes (UNABLE TO OBTAIN) Hx Anesthesia Reactions: No Meds Allergies/Adverse Reactions: Allergies Allergy/AdvReac Type Severity Reaction Status Date / Time Unobtainable Allergy Verified 03/04/17 20:17 - Medications Medications: Current Medications Acetaminophen (Tylenol 650mg/20.3ml Solution Ud) 650 mg PO Q4 PRN PRN Reason: temp >101 Last Admin: 03/05/17 23:05 Dose: 650 mg Albuterol/Ipratropium (Duoneb 3 Mg/0.5 Mg (3 Ml) Ud) 3 ml INH RQ6 TENA Last Admin: 10/24/17 07:31 Dose: 3 ml Artificial Tears (Lacri-Lube) 0 gm OS Q4H PRN PRN Reason: Other Furosemide (Lasix) 40 mg IVP BID [facility] Last Admin: 03/06/17 10:29 Dose: 40 mg Heparin Sodium (Porcine) (Heparin) 5,000 units SC Q8 [facility] Last Admin: 03/06/17 05:52 Dose: 5,000 units Piperacillin Sod/Tazobactam Sod (Zosyn 2.25 Gm Iv Premix) 2.25 gm in 50 mls @ 100 mls/hr IVPB Q6H [facility] Last Admin: 03/06/17 09:12 Dose: 100 mls/hr Vancomycin HCl/Dextrose (Vancocin) 500 mg in 100 mls @ 166.6 mls/hr IVPB Q12H [facility] Stop: 03/09/17 22:31 Last Admin: 03/06/17 10:59 Dose: 166.6 mls/hr Norepinephrine Bitartrate 8 mg (/ Sodium Chloride) 258 mls @ 7.74 mls/hr IV .Q24H PRN; Protocol; 4 MCG/MIN PRN Reason: TITRATE PER MD ORDER Last Admin: 03/06/17 08:01 Dose: 4 mcg/min, 7.74 mls/hr Levetiracetam 500 mg/ Sodium (Chloride) 105 mls @ 420 mls/hr IVPB Q12H [facility] Last Admin: 03/06/17 05:47 Dose: 420 mls/hr Azithromycin 500 mg/ Sodium (Chloride) 250 mls @ 250 mls/hr IVPB DAILY [facility] Last Admin: 03/06/17 10:55 Dose: 250 mls/hr Dopamine HCl/Dextrose (Dopamine 400mg/250ml D5w) 400 mg in 250 mls @ 15.225 mls /hr IV .[id number] PRN; Protocol; 5 MCG/KG/MIN PRN Reason: TITRATE PER MD ORDER Last Titration: 03/05/17 23:00 Dose: 0 mcg/kg/min, 0 mls/hr Propofol (Diprivan) 1,000 mg in 100 mls @ 2.436 mls/hr IV .Q24H PRN; Protocol; 5 MCG/KG/MIN PRN Reason: TITRATE PER MD ORDER Last Admin: 03/06/17 10:31 Dose: 14.98 mcg/kg/min, 7.3 mls/hr Insulin Human Regular (Novolin R) 0 unit SC Q6H TENA PRN Reason: Protocol Last Admin: 03/06/17 05:51 Dose: 4 unit Lorazepam (Ativan) 1 mg IVP Q2H PRN PRN Reason: Seizure activity Last Admin: 03/05/17 20:20 Dose: 1 mg Pantoprazole Sodium (Protonix Inj) 40 mg IVP DAILY [facility] Last Admin: 03/06/17 10:28 Dose: 40 mg Physical Exam - Constitutional Appears: In Acute Distress - Head Exam Head Exam: ATRAUMATIC, NORMAL INSPECTION, NORMOCEPHALIC - Eye Exam Eye Exam: EOMI, Normal appearance - ENT Exam Additional comments: ETT - Neck Exam Neck exam: Positive for: Normal Inspection - Respiratory Exam Additional comments: On MV suppot 80% O2 - Cardiovascular Exam Cardiovascular Exam: Tachycardia - GI/Abdominal Exam GI & Abdominal Exam: Hypoactive Bowel Sounds - Rectal Exam Rectal Exam: Deferred - Exam Additional comments: Grant cath, urine clear - Extremities Exam Extremities exam: Positive for: normal inspection Additional comments: Toes amputation - Back Exam Back exam: NORMAL INSPECTION - Neurological Exam Neurological exam: Motor Sensory Deficit - Psychiatric Exam Psychiatric exam: Flat Affect - Skin Skin Exam: Pallor Results - Vital Signs Recent Vital Signs: Last Vital Signs Temp 101.8 F H 03/06/17 00:01 Pulse 86 03/06/17 08:01 Resp 18 03/06/17 08:01 BP 96/58 L 03/06/17 10:29 Pulse Ox 100 03/06/17 08:01 - Labs Result Diagrams: 03/06/17 06:11 03/06/17 06:10 Labs: Laboratory Results - last 24 hr 03/05/17 03/05/17 03/05/17 16:33 18:20 19:06 WBC RBC Hgb Hct MCV MCH MCHC RDW Plt Count MPV Neut % (Auto) Lymph % (Auto) Divide % (Auto) Eos % (Auto) Baso % (Auto) Neut # Lymph # Divide # Eos # Baso # Neutrophils % (Manual) Band Neutrophils % Lymphocytes % (Manual) Monocytes % (Manual) Platelet Estimate Large Platelets Hypochromasia (manual) Poikilocytosis (manual Anisocytosis (manual) Macrocytosis (manual) Ovalocytes Puncture Site pCO2 pO2 HCO3 ABG pH ABG Total CO2 ABG O2 Saturation ABG Base Excess Reji Test ABG Potassium A-a O2 Difference Respiratory Index Glucose Lactate Vent Mode Mechanical Rate FiO2 Tidal Volume PEEP Sodium 131 L Potassium 6.6 H* Chloride 95 L Carbon Dioxide 21 L Anion Gap 22 H BUN 54 H Creatinine 2.7 H Est GFR ( Amer) 30 Est GFR (Non-Af Amer) 25 POC Glucose (mg/dL) 271 H Random Glucose 239 H Hemoglobin A1c Calcium 7.5 L Phosphorus 4.6 H Magnesium 1.3 L Total Bilirubin 0.9 AST 742 H D ALT 265 H Alkaline Phosphatase 106 Troponin I 0.3920 H* Total Protein 7.5 Albumin 3.4 L Globulin 4.2 H Albumin/Globulin Ratio 0.8 L Arterial Blood Potassium Influenza Typ A,B (EIA) Negative for flu a/b 03/05/17 03/06/17 03/06/17 22:25 00:14 05:29 WBC RBC Hgb Hct MCV MCH MCHC RDW Plt Count MPV Neut % (Auto) Lymph % (Auto) Divide % (Auto) Eos % (Auto) Baso % (Auto) Neut # Lymph # Divide # Eos # Baso # Neutrophils % (Manual) Band Neutrophils % Lymphocytes % (Manual) Monocytes % (Manual) Platelet Estimate Large Platelets Hypochromasia (manual) Poikilocytosis (manual Anisocytosis (manual) Macrocytosis (manual) Ovalocytes Puncture Site Rradial pCO2 26 L pO2 90 HCO3 26.2 ABG pH 7.55 H ABG Total CO2 23.5 ABG O2 Saturation 98.2 H ABG Base Excess 1.6 Reji Test Pos ABG Potassium 5.0 A-a O2 Difference 448.0 Respiratory Index 5.0 Glucose 331 H Lactate 1.5 Vent Mode Prvc Mechanical Rate 24 FiO2 80.0 Tidal Volume 450 PEEP 8 Sodium 137.0 Potassium Chloride 106.0 Carbon Dioxide Anion Gap BUN Creatinine Est GFR ( Amer) Est GFR (Non-Af Amer) POC Glucose (mg/dL) 355 H 286 H Random Glucose Hemoglobin A1c Calcium Phosphorus Magnesium Total Bilirubin AST ALT Alkaline Phosphatase Troponin I Total Protein Albumin Globulin Albumin/Globulin Ratio Arterial Blood Potassium 5.0 Influenza Typ A,B (EIA) 03/06/17 03/06/17 03/06/17 06:10 06:11 06:14 WBC 13.7 H RBC 2.33 L Hgb 7.0 L Hct 20.6 L MCV 88.4 MCH 29.9 MCHC 33.8 RDW 15.3 H Plt Count 165 MPV 8.9 Neut % (Auto) 88.0 H Lymph % (Auto) 5.7 L Divide % (Auto) 6.2 Eos % (Auto) 0.0 Baso % (Auto) 0.1 Neut # 12.1 H Lymph # 0.8 L Divide # 0.8 Eos # 0.0 Baso # 0.0 Neutrophils % (Manual) 88 H Band Neutrophils % 1 Lymphocytes % (Manual) 6 L Monocytes % (Manual) 5 Platelet Estimate Normal Large Platelets Present Hypochromasia (manual) Moderate Poikilocytosis (manual Slight Anisocytosis (manual) Slight Macrocytosis (manual) Slight Ovalocytes Slight Puncture Site pCO2 pO2 HCO3 ABG pH ABG Total CO2 ABG O2 Saturation ABG Base Excess Reji Test ABG Potassium A-a O2 Difference Respiratory Index Glucose Lactate Vent Mode Mechanical Rate FiO2 Tidal Volume PEEP Sodium 136 Potassium 4.5 Chloride 97 L Carbon Dioxide 24 Anion Gap 20 BUN 60 H Creatinine 2.9 H Est GFR ( Amer) 28 Est GFR (Non-Af Amer) 23 POC Glucose (mg/dL) Random Glucose 241 H Hemoglobin A1c 9.4 H Calcium 7.6 L Phosphorus 6.2 H Magnesium 1.5 L Total Bilirubin 1.0 AST 396 H D ALT 227 H Alkaline Phosphatase 92 Troponin I Total Protein 7.1 Albumin 3.1 L Globulin 4.0 H Albumin/Globulin Ratio 0.8 L Arterial Blood Potassium Influenza Typ A,B (EIA) 03/06/17 06:25 WBC RBC Hgb Hct MCV MCH MCHC RDW Plt Count MPV Neut % (Auto) Lymph % (Auto) Divide % (Auto) Eos % (Auto) Baso % (Auto) Neut # Lymph # Divide # Eos # Baso # Neutrophils % (Manual) Band Neutrophils % Lymphocytes % (Manual) Monocytes % (Manual) Platelet Estimate Large Platelets Hypochromasia (manual) Poikilocytosis (manual Anisocytosis (manual) Macrocytosis (manual) Ovalocytes Puncture Site Rr pCO2 32 L pO2 124 H HCO3 26.8 ABG pH 7.50 H ABG Total CO2 26.0 ABG O2 Saturation 99.0 H ABG Base Excess 2.4 Reji Test Pos ABG Potassium A-a O2 Difference 406.0 Respiratory Index 3.3 Glucose Lactate Vent Mode Prvc Mechanical Rate 18 FiO2 80.0 Tidal Volume 450 PEEP 8 Sodium Potassium Chloride Carbon Dioxide Anion Gap BUN Creatinine Est GFR ( Amer) Est GFR (Non-Af Amer) POC Glucose (mg/dL) Random Glucose Hemoglobin A1c Calcium Phosphorus Magnesium Total Bilirubin AST ALT Alkaline Phosphatase Troponin I Total Protein Albumin Globulin Albumin/Globulin Ratio Arterial Blood Potassium Influenza Typ A,B (EIA) Assessment & Plan - Assessment and Plan (Free Text) Assessment: palliative consult Code status Unknown, there is Advance Directive/ Living Will on chart. PPS 0 % I reviewed medical records, all diagnostic studies, examined patient in the bed and discussed goals of care with patient's brother in law and nephew. Patient is unresponsive to tactile and verbal stimuli. There are weak corneal reflexes, gag reflex is absent. Occasional jerky movements of right leg noted, no related to external stimulus. Patient is intubated on 80% O2 and on small dose of Propofol for control of myoclonis seizures in addition to Kepra IV. WBC dropped to 13.7, Hb 7.0, K 4.5 from 7.0, HbA1C elevated at 9.4, Troponin elevated and blood sugar 331.BP 90/58. I met with patient's brother in law Luis,who came from [place] with patient;s sister after the news of unfortunate event. Per Luis, they met 2 - 3 over the last 6 months and patient had no health problems. They only were aware that patient had DM . I reviewed patient's clinical presentation and EEG and CT Head findings. Luis stated awareness of very complex diagnosis and prognosis. He shared his and his 's expectation for miracle to happen and help patient recover. I offered more data about the anoxic brain injury and suggested that the Brain Flow test was pending as more precise diagnostic test. Luis also stated that patient has never had discussion with the family about end of life care. Family is also very church and heavily relies on praying for support. Family believes in power of God and prayer. I reassured them that all prudent and reasonable interventions were done and we will have to continue monitoring patient's response before we make any definite diagnosis. Luis agreed. The meeting was later joined by patient's nephew who had some questions and I helped him understand patient's clinical status. Impression * S/P cardiac arrest, comatose presentation * The EEG abnormal * Patient's wishes for end of life care are not known * Family ( two sisters and brother in law), represented by brother in law today , is very church and believes in miracles * The church orientation prevents family to clearly see complexity of condition Suggestions * Promote comfort * Family needs continuing education and support trough this very difficult time for them * Keep family informed of further study results
--- NOTE | 2017-03-06 13:17 | CP.PCM.CON ---
History of Present Illness - History of Present Illness History of Present Illness: 53 year old male presents to the ED per ER physician via EMS for shortness of breath which began earlier today. Per ER physician patient called 911 and stated he was having difficulty breathing. Upon medic arrival, patient appeared pale, diaphoretic and collapsed unresponsive in his hallway. Patient's initial rhythm was asystole. Medics performed CPR for 15 minutes and and patient was given three doses of epinephrine intravenously. Patient had return of circulation and his heart rate and blood pressure have been stable since. He was orally intubated in the field and an IO line was placed. Per family, pt had been recovering from foot infection/ amputation. Had poor oral intake at home. [place] [facility] [place]/p am[place]. Pt had Fransisco during the hospital stay, creatinine at in not known. Pt was medically treated for hyperkalemia, currently potassium down to 4.4 meq/ dl. PMH: DM, S/P toes amputation Soc. Hx: single, lives alone, has two sisters, one in [place], one in [place]. The sister from [place] is visiting at present [facility]. Hx: Father from [place] Review of Systems - Review of Systems Systems not reviewed;Unavailable: Acuity of Condition, Altered Mental Status Past Patient History - Past Medical History & Family History Past Medical History?: Yes - Past Social History Smoking Status: UNKNOWN Chewing Tobacco Use: No Cigar Use: No Alcohol: None Drugs: Denies Home Situation {Lives}: Alone - CARDIAC Hx Hypertension: Yes - PULMONARY Hx Respiratory Disorders: No - NEUROLOGICAL Hx Neurological Disorder: No - HEENT Hx HEENT Problems: No - RENAL Hx Chronic Kidney Disease: Yes Hx Renal Failure: Yes - ENDOCRINE/METABOLIC Hx Endocrine Disorders: Yes Hx Diabetes Mellitus Type 2: Yes - INTEGUMENTARY Hx Dermatological Problems: Yes - MUSCULOSKELETAL/RHEUMATOLOGICAL Hx Musculoskeletal Disorders: No - GASTROINTESTINAL Hx Gastrointestinal Disorders: No - GENITOURINARY/GYNECOLOGICAL Hx Genitourinary Disorders: No - PSYCHIATRIC Hx Substance Use: No - SURGICAL HISTORY Other/Comment: Great toe left foot amputated - ANESTHESIA Hx Anesthesia: Yes (UNABLE TO OBTAIN) Hx Anesthesia Reactions: No Meds Allergies/Adverse Reactions: Allergies Allergy/AdvReac Type Severity Reaction Status Date / Time Unobtainable Allergy Verified 03/04/17 20:17 - Medications Medications: Current Medications Acetaminophen (Tylenol 650mg/20.3ml Solution Ud) 650 mg PO Q4 PRN PRN Reason: temp >101 Last Admin: 03/05/17 23:05 Dose: 650 mg Albuterol/Ipratropium (Duoneb 3 Mg/0.5 Mg (3 Ml) Ud) 3 ml INH RQ6 [facility] Last Admin: 03/06/17 07:31 Dose: 3 ml Artificial Tears (Lacri-Lube) 0 gm OS Q4H PRN PRN Reason: Other Furosemide (Lasix) 40 mg IVP BID [facility] Last Admin: 03/06/17 10:29 Dose: 40 mg Heparin Sodium (Porcine) (Heparin) 5,000 units SC Q8 [facility] Last Admin: 03/06/17 13:06 Dose: 5,000 units Piperacillin Sod/Tazobactam Sod (Zosyn 2.25 Gm Iv Premix) 2.25 gm in 50 mls @ 100 mls/hr IVPB Q6H [facility] Last Admin: 03/06/17 09:12 Dose: 100 mls/hr Vancomycin HCl/Dextrose (Vancocin) 500 mg in 100 mls @ 166.6 mls/hr IVPB Q12H [facility] Stop: 03/09/17 22:31 Last Admin: 03/06/17 10:59 Dose: 166.6 mls/hr Norepinephrine Bitartrate 8 mg (/ Sodium Chloride) 258 mls @ 7.74 mls/hr IV .Q24H PRN; Protocol; 4 MCG/MIN PRN Reason: TITRATE PER MD ORDER Last Admin: 03/06/17 08:01 Dose: 4 mcg/min, 7.74 mls/hr Levetiracetam 500 mg/ Sodium (Chloride) 105 mls @ 420 mls/hr IVPB Q12H [facility] Last Admin: 03/06/17 05:47 Dose: 420 mls/hr Azithromycin 500 mg/ Sodium (Chloride) 250 mls @ 250 mls/hr IVPB DAILY [facility] Last Admin: 03/06/17 10:55 Dose: 250 mls/hr Dopamine HCl/Dextrose (Dopamine 400mg/250ml D5w) 400 mg in 250 mls @ 15.225 mls /hr IV .[id number] PRN; Protocol; 5 MCG/KG/MIN PRN Reason: TITRATE PER MD ORDER Last Titration: 03/05/17 23:00 Dose: 0 mcg/kg/min, 0 mls/hr Propofol (Diprivan) 1,000 mg in 100 mls @ 2.436 mls/hr IV .Q24H PRN; Protocol; 5 MCG/KG/MIN PRN Reason: TITRATE PER MD ORDER Last Admin: 03/06/17 10:31 Dose: 14.98 mcg/kg/min, 7.3 mls/hr Insulin Human Regular (Novolin R) 0 unit SC Q6H TENA PRN Reason: Protocol Last Admin: 03/06/17 13:06 Dose: 4 unit Lorazepam (Ativan) 1 mg IVP Q2H PRN PRN Reason: Seizure activity Last Admin: 03/05/17 20:20 Dose: 1 mg Pantoprazole Sodium (Protonix Inj) 40 mg IVP DAILY [facility] Last Admin: 03/06/17 10:28 Dose: 40 mg Physical Exam - Constitutional Appears: No Acute Distress (intubated sedated) - Head Exam Head Exam: NORMAL INSPECTION - Eye Exam Eye Exam: Normal appearance - ENT Exam Additional comments: et tube - Neck Exam Neck exam: Positive for: Normal Inspection - Respiratory Exam Respiratory Exam: Decreased Breath Sounds (mechanical vent sounds) - Cardiovascular Exam Cardiovascular Exam: REGULAR RHYTHM, RRR - GI/Abdominal Exam GI & Abdominal Exam: Distended, Normal Bowel Sounds, Soft - Extremities Exam Extremities exam: Positive for: normal inspection (rt foot in dressing) Results - Vital Signs Recent Vital Signs: Last Vital Signs Temp 101.8 F H 03/06/17 00:01 Pulse 86 03/06/17 08:01 Resp 18 03/06/17 08:01 BP 96/58 L 03/06/17 10:29 Pulse Ox 100 03/06/17 08:01 - Labs Result Diagrams: 03/06/17 06:11 03/06/17 06:10 Labs: Laboratory Results - last 24 hr 03/05/17 03/05/17 03/05/17 16:33 18:20 19:06 WBC RBC Hgb Hct MCV MCH MCHC RDW Plt Count MPV Neut % (Auto) Lymph % (Auto) Walsh % (Auto) Eos % (Auto) Baso % (Auto) Neut # Lymph # Walsh # Eos # Baso # Neutrophils % (Manual) Band Neutrophils % Lymphocytes % (Manual) Monocytes % (Manual) Platelet Estimate Large Platelets Hypochromasia (manual) Poikilocytosis (manual Anisocytosis (manual) Macrocytosis (manual) Ovalocytes Puncture Site pCO2 pO2 HCO3 ABG pH ABG Total CO2 ABG O2 Saturation ABG Base Excess Reji Test ABG Potassium A-a O2 Difference Respiratory Index Glucose Lactate Vent Mode Mechanical Rate FiO2 Tidal Volume PEEP Sodium 131 L Potassium 6.6 H* Chloride 95 L Carbon Dioxide 21 L Anion Gap 22 H BUN 54 H Creatinine 2.7 H Est GFR ( Amer) 30 Est GFR (Non-Af Amer) 25 POC Glucose (mg/dL) 271 H Random Glucose 239 H Hemoglobin A1c Calcium 7.5 L Phosphorus 4.6 H Magnesium 1.3 L Total Bilirubin 0.9 AST 742 H D ALT 265 H Alkaline Phosphatase 106 Troponin I 0.3920 H* Total Protein 7.5 Albumin 3.4 L Globulin 4.2 H Albumin/Globulin Ratio 0.8 L Arterial Blood Potassium Influenza Typ A,B (EIA) Negative for flu a/b 03/05/17 03/06/17 03/06/17 22:25 00:14 05:29 WBC RBC Hgb Hct MCV MCH MCHC RDW Plt Count MPV Neut % (Auto) Lymph % (Auto) Walsh % (Auto) Eos % (Auto) Baso % (Auto) Neut # Lymph # Walsh # Eos # Baso # Neutrophils % (Manual) Band Neutrophils % Lymphocytes % (Manual) Monocytes % (Manual) Platelet Estimate Large Platelets Hypochromasia (manual) Poikilocytosis (manual Anisocytosis (manual) Macrocytosis (manual) Ovalocytes Puncture Site Rradial pCO2 26 L pO2 90 HCO3 26.2 ABG pH 7.55 H ABG Total CO2 23.5 ABG O2 Saturation 98.2 H ABG Base Excess 1.6 Reji Test Pos ABG Potassium 5.0 A-a O2 Difference 448.0 Respiratory Index 5.0 Glucose 331 H Lactate 1.5 Vent Mode Prvc Mechanical Rate 24 FiO2 80.0 Tidal Volume 450 PEEP 8 Sodium 137.0 Potassium Chloride 106.0 Carbon Dioxide Anion Gap BUN Creatinine Est GFR ( Amer) Est GFR (Non-Af Amer) POC Glucose (mg/dL) 355 H 286 H Random Glucose Hemoglobin A1c Calcium Phosphorus Magnesium Total Bilirubin AST ALT Alkaline Phosphatase Troponin I Total Protein Albumin Globulin Albumin/Globulin Ratio Arterial Blood Potassium 5.0 Influenza Typ A,B (EIA) 03/06/17 03/06/17 03/06/17 06:10 06:11 06:14 WBC 13.7 H RBC 2.33 L Hgb 7.0 L Hct 20.6 L MCV 88.4 MCH 29.9 MCHC 33.8 RDW 15.3 H Plt Count 165 MPV 8.9 Neut % (Auto) 88.0 H Lymph % (Auto) 5.7 L Walsh % (Auto) 6.2 Eos % (Auto) 0.0 Baso % (Auto) 0.1 Neut # 12.1 H Lymph # 0.8 L Walsh # 0.8 Eos # 0.0 Baso # 0.0 Neutrophils % (Manual) 88 H Band Neutrophils % 1 Lymphocytes % (Manual) 6 L Monocytes % (Manual) 5 Platelet Estimate Normal Large Platelets Present Hypochromasia (manual) Moderate Poikilocytosis (manual Slight Anisocytosis (manual) Slight Macrocytosis (manual) Slight Ovalocytes Slight Puncture Site pCO2 pO2 HCO3 ABG pH ABG Total CO2 ABG O2 Saturation ABG Base Excess Reji Test ABG Potassium A-a O2 Difference Respiratory Index Glucose Lactate Vent Mode Mechanical Rate FiO2 Tidal Volume PEEP Sodium 136 Potassium 4.5 Chloride 97 L Carbon Dioxide 24 Anion Gap 20 BUN 60 H Creatinine 2.9 H Est GFR ( Amer) 28 Est GFR (Non-Af Amer) 23 POC Glucose (mg/dL) Random Glucose 241 H Hemoglobin A1c 9.4 H Calcium 7.6 L Phosphorus 6.2 H Magnesium 1.5 L Total Bilirubin 1.0 AST 396 H D ALT 227 H Alkaline Phosphatase 92 Troponin I Total Protein 7.1 Albumin 3.1 L Globulin 4.0 H Albumin/Globulin Ratio 0.8 L Arterial Blood Potassium Influenza Typ A,B (EIA) 03/06/17 03/06/17 06:25 11:36 WBC RBC Hgb Hct MCV MCH MCHC RDW Plt Count MPV Neut % (Auto) Lymph % (Auto) Walsh % (Auto) Eos % (Auto) Baso % (Auto) Neut # Lymph # Walsh # Eos # Baso # Neutrophils % (Manual) Band Neutrophils % Lymphocytes % (Manual) Monocytes % (Manual) Platelet Estimate Large Platelets Hypochromasia (manual) Poikilocytosis (manual Anisocytosis (manual) Macrocytosis (manual) Ovalocytes Puncture Site Rr pCO2 32 L pO2 124 H HCO3 26.8 ABG pH 7.50 H ABG Total CO2 26.0 ABG O2 Saturation 99.0 H ABG Base Excess 2.4 Reji Test Pos ABG Potassium A-a O2 Difference 406.0 Respiratory Index 3.3 Glucose Lactate Vent Mode Prvc Mechanical Rate 18 FiO2 80.0 Tidal Volume 450 PEEP 8 Sodium Potassium Chloride Carbon Dioxide Anion Gap BUN Creatinine Est GFR ( Amer) Est GFR (Non-Af Amer) POC Glucose (mg/dL) 274 H Random Glucose Hemoglobin A1c Calcium Phosphorus Magnesium Total Bilirubin AST ALT Alkaline Phosphatase Troponin I Total Protein Albumin Globulin Albumin/Globulin Ratio Arterial Blood Potassium Influenza Typ A,B (EIA) Assessment & Plan (1) Cardiac arrest Status: Acute (2) Open wound of right foot with complication Status: Acute (3) Respiratory failure Status: Acute - Assessment and Plan (Free Text) Assessment: fransisco , unerlying ckd. non oliguric. ATN cardiac arrest. shock requiring pressors hyperkalemia respiratory failure plan: maintain lasix for neg balance, neg 2L yesterday electrolytes acceptable may need TAILMAN if renal function deteriorates cardiac work up goals of care discussion w/ family
[2017-03-06] MEDS: White Petrolatum/Mineral Oil Ophth Oint(3.5 gm) OS PRN (14:23)
--- NOTE | 2017-03-06 14:58 | CP.CCUPN ---
Addendum entered and electronically signed by Temi Rosales 03/06/17 16:54 : 03/06 HgB/ Hct: 7.0/ 20.6, 2 u PRBC to be transfused Addendum entered and electronically signed by Temi Rosales 03/06/17 16:50 : Heme: anemia Medication and management: * transfused 2 units of PRBC * 03/05/17: Hg/Hct : 7.0/20.6 Original Note: <Temi Rosales - Last Filed: 03/06/17 14:47> CCU Subjective - Physician Review Subjective (Free Text): Patient seen and examined at bedside. ROS unobtainable due to patient's current clinical status. CCU Objective - Vital Signs / Intake & Output Vital Signs (Last 4 hours): Vital Signs Pulse Resp BP Pulse Ox 03/06/17 13:30 89 23 100/65 03/06/17 13:00 94 H 25 H 107/72 03/06/17 12:30 87 20 88/59 L 100 03/06/17 12:00 88 20 87/61 L 100 03/06/17 11:30 86 20 89/59 L 100 03/06/17 11:00 84 17 99/65 L 100 Intake and Output (Last 8hrs): Intake & Output 03/05/17 03/06/17 03/06/17 22:59 06:59 14:59 Intake Total 772.2 761.9 169.9 Output Total 1650 1325 145 Balance -877.8 -563.1 24.9 Weight 178 lb 12.8 oz Intake: IV 78.2 318.8 140.3 Intake, IV Amount 544.0 353.1 29.6 Left Hand 50 Right Antecubital 100 150 Right Distal Port Femoral 157.5 144.7 15.0 Right Femoral 109.5 Right Medial Port Femoral 41.5 58.4 14.6 Right Proximal Port 85.5 0 Femoral Oral 150 90 Output: Urine 1650 1325 145 Urethral (Gipson) 1650 1325 145 - Physical Exam Head: Positive for: Atraumatic, Normocephalic Mouth: Positive for: Moist Mucous Membranes Respiratory/Chest: Positive for: Rales Cardiovascular: Positive for: Regular Rate and Rhythm, Normal S1, S2 Abdomen: Negative for: Distention Lower Extremity: Positive for: Other (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 Negative for: Alert, Oriented x 3 - Medications Active Medications: Active Medications Generic Name Dose Route Start Last Admin Trade Name Freq PRN Reason Stop Dose Admin Acetaminophen 650 mg 03/05/17 22:55 03/05/17 23:05 Tylenol 650mg/20.3ml Solution Ud PO 650 mg Q4 PRN Administration temp >101 Albuterol/Ipratropium 3 ml 03/05/17 14:00 03/06/17 14:25 Duoneb 3 Mg/0.5 Mg (3 Ml) Ud INH 3 ml RQ6 TENA Administration Artificial Tears 0 gm 03/06/17 10:04 03/06/17 14:23 Lacri-Lube OS 3.5 gm Q4H PRN Administration Other Furosemide 40 mg 03/04/17 23:20 03/06/17 10:29 Lasix IVP 40 mg BID TENA Administration Heparin Sodium (Porcine) 5,000 units 03/05/17 06:00 03/06/17 13:06 Heparin SC 5,000 units Q8 TENA Administration Piperacillin Sod/Tazobactam Sod 2.25 gm in 50 mls @ 100 mls/hr 03/04/17 21:30 03/06/17 09:12 Zosyn 2.25 Gm Iv Premix IVPB 100 mls/hr Q6H TENA Administration Vancomycin HCl/Dextrose 500 mg in 100 mls @ 166.6 mls/hr 03/04/17 22:30 03/06 10:59 Vancocin IVPB 03/09/17 22:31 166.6 mls/hr Q12H TENA Administration Norepinephrine Bitartrate 8 mg 258 mls @ 7.74 mls/hr 03/05/17 01:00 03/06/17 08:01 / Sodium Chloride IV 4 mcg/min .Q24H PRN 7.74 mls/hr TITRATE PER MD ORDER Administration Protocol 4 MCG/MIN Levetiracetam 500 mg/ Sodium 105 mls @ 420 mls/hr 03/05/17 02:45 03/06/17 14: 22 Chloride IVPB 420 mls/hr Q12H TENA Administration Azithromycin 500 mg/ Sodium 250 mls @ 250 mls/hr 03/05/17 13:00 03/06/17 10: 55 Chloride IVPB 250 mls/hr DAILY TENA Administration Dopamine HCl/Dextrose 400 mg in 250 mls @ 15.225 mls/hr 03/05/17 20:45 23:00 Dopamine 400mg/250ml D5w IV 0 mcg/kg/min .[id number] PRN 0 mls/hr TITRATE PER MD ORDER Titration Protocol 5 MCG/KG/MIN Propofol 1,000 mg in 100 mls @ 2.436 mls/hr 03/05/17 21:00 03/06/17 10:31 Diprivan IV 14.98 mcg/kg/min .Q24H PRN 7.3 mls/hr TITRATE PER MD ORDER Administration Protocol 5 MCG/KG/MIN Insulin Human Regular 0 unit 03/05/17 00:45 03/06/17 13:06 Novolin R SC 4 unit Q6H TENA Administration Protocol Lorazepam 1 mg 03/05/17 00:57 03/05/17 20:20 Ativan IVP 1 mg Q2H PRN Administration Seizure activity Pantoprazole Sodium 40 mg 03/05/17 10:00 03/06/17 10:28 Protonix Inj IVP 40 mg DAILY TENA Administration - Patient Studies Lab Studies: Microbiology Studies 03/04/17 22:17 MRSA Culture (Admit) - Final Nose MRSA DETECTED 03/04/17 22:30 Urine Culture - Final Urine,Catheterized No Growth (<1,000 CFU/ML) Lab Studies 03/06/17 03/06/17 03/06/17 Range/Units 11:36 06:25 06:14 WBC (4.8-10.8) K/uL RBC (4.40-5.90) Mil/uL Hgb (12.0-18.0) g/dL Hct (35.0-51.0) % MCV (80.0-94.0) fL MCH (27.0-31.0) pg MCHC (33.0-37.0) g/dL RDW (11.5-14.5) % Plt Count (130-400) K/uL MPV (7.2-11.7) fL Neut % (Auto) (50.0-75.0) % Lymph % (Auto) (20.0-40.0) % Vance % (Auto) (0.0-10.0) % Eos % (Auto) (0.0-4.0) % Baso % (Auto) (0.0-2.0) % Neut # (1.8-7.0) K/uL Lymph # (1.0-4.3) K/uL Vance # (0.0-0.8) K/uL Eos # (0.0-0.7) K/uL Baso # (0.0-0.2) K/uL Neutrophils % (Manual) (50-75) % Band Neutrophils % (0-2) % Lymphocytes % (Manual) (20-40) % Monocytes % (Manual) (0-10) % Platelet Estimate (NORMAL) Large Platelets Hypochromasia (manual) Poikilocytosis (manual Anisocytosis (manual) Macrocytosis (manual) Ovalocytes Puncture Site Rr pCO2 32 L (35-45) mm/Hg pO2 124 H (80-100) mm/Hg HCO3 26.8 (21-28) mmol/L ABG pH 7.50 H (7.35-7.45) ABG Total CO2 26.0 (22-28) mmol/L ABG O2 Saturation 99.0 H (95-98) % ABG Base Excess 2.4 (-2.0-3.0) mmol/L Reji Test Pos ABG Potassium (3.6-5.2) mmol/L A-a O2 Difference 406.0 mm/Hg Respiratory Index 3.3 Glucose (75-110) mg/dl Lactate (0.7-2.1) mmol/L Vent Mode Prvc Mechanical Rate 18 FiO2 80.0 % Tidal Volume 450 PEEP 8 Sodium (132-148) mmol/L Potassium (3.6-5.2) mmol/L Chloride (98-107) mmol/L Carbon Dioxide (22-30) mmol/L Anion Gap (10-20) BUN (9-20) mg/dL Creatinine (0.8-1.5) mg/dL Est GFR ( Amer) Est GFR (Non-Af Amer) POC Glucose (mg/dL) 274 H (65-110) mg/dL Random Glucose (75-110) mg/dL Hemoglobin A1c 9.4 H (4.2-6.5) % Calcium (8.6-10.4) mg/dl Phosphorus (2.5-4.5) mg/dL Magnesium (1.6-2.3) mg/dL Total Bilirubin (0.2-1.3) mg/dL AST (17-59) U/L ALT (21-72) U/L Alkaline Phosphatase (38-126) U/L Troponin I (0.00-0.120) ng/mL Total Protein (6.3-8.3) g/dL Albumin (3.5-5.0) g/dL Globulin (2.2-3.9) gm/dL Albumin/Globulin Ratio (1.0-2.1) Arterial Blood Potassium (3.6-5.2) mmol/L Influenza Typ A,B (EIA) (NEGATIVE) 03/06/17 03/06/17 03/06/17 Range/Units 06:11 06:10 05:29 WBC 13.7 H (4.8-10.8) K/uL RBC 2.33 L (4.40-5.90) Mil/uL Hgb 7.0 L (12.0-18.0) g/dL Hct 20.6 L (35.0-51.0) % MCV 88.4 (80.0-94.0) fL MCH 29.9 (27.0-31.0) pg MCHC 33.8 (33.0-37.0) g/dL RDW 15.3 H (11.5-14.5) % Plt Count 165 (130-400) K/uL MPV 8.9 (7.2-11.7) fL Neut % (Auto) 88.0 H (50.0-75.0) % Lymph % (Auto) 5.7 L (20.0-40.0) % Vance % (Auto) 6.2 (0.0-10.0) % Eos % (Auto) 0.0 (0.0-4.0) % Baso % (Auto) 0.1 (0.0-2.0) % Neut # 12.1 H (1.8-7.0) K/uL Lymph # 0.8 L (1.0-4.3) K/uL Vance # 0.8 (0.0-0.8) K/uL Eos # 0.0 (0.0-0.7) K/uL Baso # 0.0 (0.0-0.2) K/uL Neutrophils % (Manual) 88 H (50-75) % Band Neutrophils % 1 (0-2) % Lymphocytes % (Manual) 6 L (20-40) % Monocytes % (Manual) 5 (0-10) % Platelet Estimate Normal (NORMAL) Large Platelets Present Hypochromasia (manual) Moderate Poikilocytosis (manual Slight Anisocytosis (manual) Slight Macrocytosis (manual) Slight Ovalocytes Slight Puncture Site pCO2 (35-45) mm/Hg pO2 (80-100) mm/Hg HCO3 (21-28) mmol/L ABG pH (7.35-7.45) ABG Total CO2 (22-28) mmol/L ABG O2 Saturation (95-98) % ABG Base Excess (-2.0-3.0) mmol/L Reji Test ABG Potassium (3.6-5.2) mmol/L A-a O2 Difference mm/Hg Respiratory Index Glucose (75-110) mg/dl Lactate (0.7-2.1) mmol/L Vent Mode Mechanical Rate FiO2 % Tidal Volume PEEP Sodium 136 (132-148) mmol/L Potassium 4.5 (3.6-5.2) mmol/L Chloride 97 L (98-107) mmol/L Carbon Dioxide 24 (22-30) mmol/L Anion Gap 20 (10-20) BUN 60 H (9-20) mg/dL Creatinine 2.9 H (0.8-1.5) mg/dL Est GFR ( Amer) 28 Est GFR (Non-Af Amer) 23 POC Glucose (mg/dL) 286 H (65-110) mg/dL Random Glucose 241 H (75-110) mg/dL Hemoglobin A1c (4.2-6.5) % Calcium 7.6 L (8.6-10.4) mg/dl Phosphorus 6.2 H (2.5-4.5) mg/dL Magnesium 1.5 L (1.6-2.3) mg/dL Total Bilirubin 1.0 (0.2-1.3) mg/dL AST 396 H D (17-59) U/L ALT 227 H (21-72) U/L Alkaline Phosphatase 92 (38-126) U/L Troponin I (0.00-0.120) ng/mL Total Protein 7.1 (6.3-8.3) g/dL Albumin 3.1 L (3.5-5.0) g/dL Globulin 4.0 H (2.2-3.9) gm/dL Albumin/Globulin Ratio 0.8 L (1.0-2.1) Arterial Blood Potassium (3.6-5.2) mmol/L Influenza Typ A,B (EIA) (NEGATIVE) 03/06/17 03/05/17 03/05/17 Range/Units 00:14 22:25 19:06 WBC (4.8-10.8) K/uL RBC (4.40-5.90) Mil/uL Hgb (12.0-18.0) g/dL Hct (35.0-51.0) % MCV (80.0-94.0) fL MCH (27.0-31.0) pg MCHC (33.0-37.0) g/dL RDW (11.5-14.5) % Plt Count (130-400) K/uL MPV (7.2-11.7) fL Neut % (Auto) (50.0-75.0) % Lymph % (Auto) (20.0-40.0) % Vance % (Auto) (0.0-10.0) % Eos % (Auto) (0.0-4.0) % Baso % (Auto) (0.0-2.0) % Neut # (1.8-7.0) K/uL Lymph # (1.0-4.3) K/uL Vance # (0.0-0.8) K/uL Eos # (0.0-0.7) K/uL Baso # (0.0-0.2) K/uL Neutrophils % (Manual) (50-75) % Band Neutrophils % (0-2) % Lymphocytes % (Manual) (20-40) % Monocytes % (Manual) (0-10) % Platelet Estimate (NORMAL) Large Platelets Hypochromasia (manual) Poikilocytosis (manual Anisocytosis (manual) Macrocytosis (manual) Ovalocytes Puncture Site Rradial pCO2 26 L (35-45) mm/Hg pO2 90 (80-100) mm/Hg HCO3 26.2 (21-28) mmol/L ABG pH 7.55 H (7.35-7.45) ABG Total CO2 23.5 (22-28) mmol/L ABG O2 Saturation 98.2 H (95-98) % ABG Base Excess 1.6 (-2.0-3.0) mmol/L Reji Test Pos ABG Potassium 5.0 (3.6-5.2) mmol/L A-a O2 Difference 448.0 mm/Hg Respiratory Index 5.0 Glucose 331 H (75-110) mg/dl Lactate 1.5 (0.7-2.1) mmol/L Vent Mode Prvc Mechanical Rate 24 FiO2 80.0 % Tidal Volume 450 PEEP 8 Sodium 137.0 (132-148) mmol/L Potassium (3.6-5.2) mmol/L Chloride 106.0 (98-107) mmol/L Carbon Dioxide (22-30) mmol/L Anion Gap (10-20) BUN (9-20) mg/dL Creatinine (0.8-1.5) mg/dL Est GFR ( Amer) Est GFR (Non-Af Amer) POC Glucose (mg/dL) 355 H (65-110) mg/dL Random Glucose (75-110) mg/dL Hemoglobin A1c (4.2-6.5) % Calcium (8.6-10.4) mg/dl Phosphorus (2.5-4.5) mg/dL Magnesium (1.6-2.3) mg/dL Total Bilirubin (0.2-1.3) mg/dL AST (17-59) U/L ALT (21-72) U/L Alkaline Phosphatase (38-126) U/L Troponin I (0.00-0.120) ng/mL Total Protein (6.3-8.3) g/dL Albumin (3.5-5.0) g/dL Globulin (2.2-3.9) gm/dL Albumin/Globulin Ratio (1.0-2.1) Arterial Blood Potassium 5.0 (3.6-5.2) mmol/L Influenza Typ A,B (EIA) Negative for flu a/b (NEGATIVE) 03/05/17 03/05/17 Range/Units 18:20 16:33 WBC (4.8-10.8) K/uL RBC (4.40-5.90) Mil/uL Hgb (12.0-18.0) g/dL Hct (35.0-51.0) % MCV (80.0-94.0) fL MCH (27.0-31.0) pg MCHC (33.0-37.0) g/dL RDW (11.5-14.5) % Plt Count (130-400) K/uL MPV (7.2-11.7) fL Neut % (Auto) (50.0-75.0) % Lymph % (Auto) (20.0-40.0) % Vance % (Auto) (0.0-10.0) % Eos % (Auto) (0.0-4.0) % Baso % (Auto) (0.0-2.0) % Neut # (1.8-7.0) K/uL Lymph # (1.0-4.3) K/uL Vance # (0.0-0.8) K/uL Eos # (0.0-0.7) K/uL Baso # (0.0-0.2) K/uL Neutrophils % (Manual) (50-75) % Band Neutrophils % (0-2) % Lymphocytes % (Manual) (20-40) % Monocytes % (Manual) (0-10) % Platelet Estimate (NORMAL) Large Platelets Hypochromasia (manual) Poikilocytosis (manual Anisocytosis (manual) Macrocytosis (manual) Ovalocytes Puncture Site pCO2 (35-45) mm/Hg pO2 (80-100) mm/Hg HCO3 (21-28) mmol/L ABG pH (7.35-7.45) ABG Total CO2 (22-28) mmol/L ABG O2 Saturation (95-98) % ABG Base Excess (-2.0-3.0) mmol/L Reji Test ABG Potassium (3.6-5.2) mmol/L A-a O2 Difference mm/Hg Respiratory Index Glucose (75-110) mg/dl Lactate (0.7-2.1) mmol/L Vent Mode Mechanical Rate FiO2 % Tidal Volume PEEP Sodium 131 L (132-148) mmol/L Potassium 6.6 H* (3.6-5.2) mmol/L Chloride 95 L (98-107) mmol/L Carbon Dioxide 21 L (22-30) mmol/L Anion Gap 22 H (10-20) BUN 54 H (9-20) mg/dL Creatinine 2.7 H (0.8-1.5) mg/dL Est GFR ( Amer) 30 Est GFR (Non-Af Amer) 25 POC Glucose (mg/dL) 271 H (65-110) mg/dL Random Glucose 239 H (75-110) mg/dL Hemoglobin A1c (4.2-6.5) % Calcium 7.5 L (8.6-10.4) mg/dl Phosphorus 4.6 H (2.5-4.5) mg/dL Magnesium 1.3 L (1.6-2.3) mg/dL Total Bilirubin 0.9 (0.2-1.3) mg/dL AST 742 H D (17-59) U/L ALT 265 H (21-72) U/L Alkaline Phosphatase 106 (38-126) U/L Troponin I 0.3920 H* (0.00-0.120) ng/mL Total Protein 7.5 (6.3-8.3) g/dL Albumin 3.4 L (3.5-5.0) g/dL Globulin 4.2 H (2.2-3.9) gm/dL Albumin/Globulin Ratio 0.8 L (1.0-2.1) Arterial Blood Potassium (3.6-5.2) mmol/L Influenza Typ A,B (EIA) (NEGATIVE) Laboratory Results - last 24 hr 03/05/17 03/05/17 03/05/17 16:33 18:20 19:06 WBC RBC Hgb Hct MCV MCH MCHC RDW Plt Count MPV Neut % (Auto) Lymph % (Auto) Vance % (Auto) Eos % (Auto) Baso % (Auto) Neut # Lymph # Vance # Eos # Baso # Neutrophils % (Manual) Band Neutrophils % Lymphocytes % (Manual) Monocytes % (Manual) Platelet Estimate Large Platelets Hypochromasia (manual) Poikilocytosis (manual Anisocytosis (manual) Macrocytosis (manual) Ovalocytes Puncture Site pCO2 pO2 HCO3 ABG pH ABG Total CO2 ABG O2 Saturation ABG Base Excess Reji Test ABG Potassium A-a O2 Difference Respiratory Index Glucose Lactate Vent Mode Mechanical Rate FiO2 Tidal Volume PEEP Sodium 131 L Potassium 6.6 H* Chloride 95 L Carbon Dioxide 21 L Anion Gap 22 H BUN 54 H Creatinine 2.7 H Est GFR ( Amer) 30 Est GFR (Non-Af Amer) 25 POC Glucose (mg/dL) 271 H Random Glucose 239 H Hemoglobin A1c Calcium 7.5 L Phosphorus 4.6 H Magnesium 1.3 L Total Bilirubin 0.9 AST 742 H D ALT 265 H Alkaline Phosphatase 106 Troponin I 0.3920 H* Total Protein 7.5 Albumin 3.4 L Globulin 4.2 H Albumin/Globulin Ratio 0.8 L Arterial Blood Potassium Influenza Typ A,B (EIA) Negative for flu a/b 03/05/17 03/06/17 03/06/17 22:25 00:14 05:29 WBC RBC Hgb Hct MCV MCH MCHC RDW Plt Count MPV Neut % (Auto) Lymph % (Auto) Vance % (Auto) Eos % (Auto) Baso % (Auto) Neut # Lymph # Vance # Eos # Baso # Neutrophils % (Manual) Band Neutrophils % Lymphocytes % (Manual) Monocytes % (Manual) Platelet Estimate Large Platelets Hypochromasia (manual) Poikilocytosis (manual Anisocytosis (manual) Macrocytosis (manual) Ovalocytes Puncture Site Rradial pCO2 26 L pO2 90 HCO3 26.2 ABG pH 7.55 H ABG Total CO2 23.5 ABG O2 Saturation 98.2 H ABG Base Excess 1.6 Reji Test Pos ABG Potassium 5.0 A-a O2 Difference 448.0 Respiratory Index 5.0 Glucose 331 H Lactate 1.5 Vent Mode Prvc Mechanical Rate 24 FiO2 80.0 Tidal Volume 450 PEEP 8 Sodium 137.0 Potassium Chloride 106.0 Carbon Dioxide Anion Gap BUN Creatinine Est GFR ( Amer) Est GFR (Non-Af Amer) POC Glucose (mg/dL) 355 H 286 H Random Glucose Hemoglobin A1c Calcium Phosphorus Magnesium Total Bilirubin AST ALT Alkaline Phosphatase Troponin I Total Protein Albumin Globulin Albumin/Globulin Ratio Arterial Blood Potassium 5.0 Influenza Typ A,B (EIA) 03/06/17 03/06/17 03/06/17 06:10 06:11 06:14 WBC 13.7 H RBC 2.33 L Hgb 7.0 L Hct 20.6 L MCV 88.4 MCH 29.9 MCHC 33.8 RDW 15.3 H Plt Count 165 MPV 8.9 Neut % (Auto) 88.0 H Lymph % (Auto) 5.7 L Vance % (Auto) 6.2 Eos % (Auto) 0.0 Baso % (Auto) 0.1 Neut # 12.1 H Lymph # 0.8 L Vance # 0.8 Eos # 0.0 Baso # 0.0 Neutrophils % (Manual) 88 H Band Neutrophils % 1 Lymphocytes % (Manual) 6 L Monocytes % (Manual) 5 Platelet Estimate Normal Large Platelets Present Hypochromasia (manual) Moderate Poikilocytosis (manual Slight Anisocytosis (manual) Slight Macrocytosis (manual) Slight Ovalocytes Slight Puncture Site pCO2 pO2 HCO3 ABG pH ABG Total CO2 ABG O2 Saturation ABG Base Excess Reji Test ABG Potassium A-a O2 Difference Respiratory Index Glucose Lactate Vent Mode Mechanical Rate FiO2 Tidal Volume PEEP Sodium 136 Potassium 4.5 Chloride 97 L Carbon Dioxide 24 Anion Gap 20 BUN 60 H Creatinine 2.9 H Est GFR ( Amer) 28 Est GFR (Non-Af Amer) 23 POC Glucose (mg/dL) Random Glucose 241 H Hemoglobin A1c 9.4 H Calcium 7.6 L Phosphorus 6.2 H Magnesium 1.5 L Total Bilirubin 1.0 AST 396 H D ALT 227 H Alkaline Phosphatase 92 Troponin I Total Protein 7.1 Albumin 3.1 L Globulin 4.0 H Albumin/Globulin Ratio 0.8 L Arterial Blood Potassium Influenza Typ A,B (EIA) 03/06/17 03/06/17 06:25 11:36 WBC RBC Hgb Hct MCV MCH MCHC RDW Plt Count MPV Neut % (Auto) Lymph % (Auto) Vance % (Auto) Eos % (Auto) Baso % (Auto) Neut # Lymph # Vance # Eos # Baso # Neutrophils % (Manual) Band Neutrophils % Lymphocytes % (Manual) Monocytes % (Manual) Platelet Estimate Large Platelets Hypochromasia (manual) Poikilocytosis (manual Anisocytosis (manual) Macrocytosis (manual) Ovalocytes Puncture Site Rr pCO2 32 L pO2 124 H HCO3 26.8 ABG pH 7.50 H ABG Total CO2 26.0 ABG O2 Saturation 99.0 H ABG Base Excess 2.4 Reji Test Pos ABG Potassium A-a O2 Difference 406.0 Respiratory Index 3.3 Glucose Lactate Vent Mode Prvc Mechanical Rate 18 FiO2 80.0 Tidal Volume 450 PEEP 8 Sodium Potassium Chloride Carbon Dioxide Anion Gap BUN Creatinine Est GFR ( Amer) Est GFR (Non-Af Amer) POC Glucose (mg/dL) 274 H Random Glucose Hemoglobin A1c Calcium Phosphorus Magnesium Total Bilirubin AST ALT Alkaline Phosphatase Troponin I Total Protein Albumin Globulin Albumin/Globulin Ratio Arterial Blood Potassium Influenza Typ A,B (EIA) Fingerstick Blood Sugar Results: 274 Assessment/Plan - Assessment and Plan (Free Text) Assessment: 52 y/o M with pmhx of HTN, DM II, kidney disease, who was brought to the ED after he collapsed in ED at home and was found in asystole. Patient given 3 doses of epi and CPR for 15 minutes then ROSC. Patient intubated in the field. Patient went into cardiac arrest twice more in the ICU. Neuro: Intubated, altered mental status Medication and Management: * Ativan 1 mg q2h PRN seizure activitiy * Keppra 500 mg q12h * Dr. Rascon consulted, help appreciated Imaging: Head CT (03/04): chronic microvascular ischemic changes, no acute intracranial hemorrhage EEG (03/05/17): periodic paroxysmal activities lasting about 2-3 seconds with intermittent burst suppression suggestive of status epileptiform activities. F/U Head CT (03/06/17) Pulm: Respiratory distress secondary to cardiac arrest Medication and Management * Patient intubated * Lasix * gipson to measure urine output * Propofol 5mcg/kg/min Imaging: Chest X-ray (03/05/17): Endotracheal tube extending into the midthoracic trachea. NG tube extending into the stomach. Dense consolidative opacificaitons throughout both lungs suggestive for underlying edema and or inflitrate. Cardio: s/p cardiac arrest Medication and management: * Dopamine drip, titrate PRN * Levophed drip, titrate PRN * Dr. Tate consulted, help appreciated * f/u Echo Heme: anemia Medication and management: * transfused one unit of PRBC * 03/05/17: Hg/Hct : 7.8/22.9 Endo: DM II Medication and management: * Regular ISS * accucheck q6h * f/u HgA1C Renal: acute vs chronic kidney disease Medication and management: * Lasix 40mg BID * f/u recommendation as per Dr. Castillo * K+ 7.0 on 03/05, 1 amp Ca Gluconate, 1 amp bicarb, duonebs, solumedrol 40 BID given * K+ repeat 6.6, repeat of 1 amp Ca Gluconate, 1 amp bicarb, duonebs, and Kayexalate once at 6pm and once at 10pm * 03/06: K+: 4.5 * 03/06:BUN/Cr- 60/2.9 MSK: right foot wound secondary to first metatarsal amputation Medication and management: * Wound care ID: Medication and management: * Vanco * Zosyn * MRSA in nose * Urine culture (-) * f/u blood culture * Dr. Shore consulted, help appreciated Prophylaxis: DVT: Heparin 5,000 u sc q8h GI: Protonix 40 mg IVP daily <José Miguel Lugo - Last Filed: 03/06/17 18:15> CCU Objective - Vital Signs / Intake & Output Vital Signs (Last 4 hours): Vital Signs Temp Pulse Resp BP Pulse Ox 03/06/17 17:49 98 F 98 H 25 H 104/67 03/06/17 17:45 104/67 03/06/17 17:34 98.3 F 93 H 22 107/64 03/06/17 17:19 98.3 F 94 H 22 103/63 03/06/17 15:00 88 21 101/63 100 03/06/17 14:30 87 22 100/62 100 Intake and Output (Last 8hrs): Intake & Output 03/06/17 03/06/17 03/06/17 06:59 14:59 22:59 Intake Total 761.9 958.7 64.8 Output Total 1325 835 175 Balance -563.1 123.7 -110.2 Weight 178 lb 12.8 oz Intake: IV 318.8 140.3 Intake, IV Amount 353.1 818.4 64.8 Right Antecubital 150 Right Distal Port Femoral 144.7 60.0 7.5 Right Medial Port Femoral 58.4 58.4 7.3 Right Proximal Port 0 700 50 Femoral Oral 90 Blood Product 0 Red Blood Cells Cpd As1 0 Lr Unit [id number] Output: Urine 1325 835 175 Urethral (Gipson) 1325 835 175 Other: # Bowel Movements 0 0 - Medications Active Medications: Active Medications Generic Name Dose Route Start Last Admin Trade Name Freq PRN Reason Stop Dose Admin Acetaminophen 650 mg 03/05/17 22:55 03/05/17 23:05 Tylenol 650mg/20.3ml Solution Ud PO 650 mg Q4 PRN Administration temp >101 Albuterol/Ipratropium 3 ml 03/05/17 14:00 03/06/17 14:25 Duoneb 3 Mg/0.5 Mg (3 Ml) Ud INH 3 ml RQ6 TENA Administration Artificial Tears 0 gm 03/06/17 10:04 03/06/17 14:23 Lacri-Lube OS 3.5 gm Q4H PRN Administration Other Furosemide 40 mg 03/04/17 23:20 03/06/17 17:45 Lasix IVP 40 mg BID TENA Administration Heparin Sodium (Porcine) 5,000 units 03/05/17 06:00 03/06/17 13:06 Heparin SC 5,000 units Q8 TENA Administration Piperacillin Sod/Tazobactam Sod 2.25 gm in 50 mls @ 100 mls/hr 03/04/17 21:30 03/06/17 15:13 Zosyn 2.25 Gm Iv Premix IVPB 100 mls/hr Q6H TENA Administration Vancomycin HCl/Dextrose 500 mg in 100 mls @ 166.6 mls/hr 03/04/17 22:30 03/06 10:59 Vancocin IVPB 03/09/17 22:31 166.6 mls/hr Q12H TENA Administration Norepinephrine Bitartrate 8 mg 258 mls @ 7.74 mls/hr 03/05/17 01:00 03/06/17 08:01 / Sodium Chloride IV 4 mcg/min .Q24H PRN 7.74 mls/hr TITRATE PER MD ORDER Administration Protocol 4 MCG/MIN Levetiracetam 500 mg/ Sodium 105 mls @ 420 mls/hr 03/05/17 02:45 03/06/17 14: 22 Chloride IVPB 420 mls/hr Q12H TENA Administration Azithromycin 500 mg/ Sodium 250 mls @ 250 mls/hr 03/05/17 13:00 03/06/17 10: 55 Chloride IVPB 250 mls/hr DAILY TENA Administration Dopamine HCl/Dextrose 400 mg in 250 mls @ 15.225 mls/hr 03/05/17 20:45 23:00 Dopamine 400mg/250ml D5w IV 0 mcg/kg/min .[id number] PRN 0 mls/hr TITRATE PER MD ORDER Titration Protocol 5 MCG/KG/MIN Propofol 1,000 mg in 100 mls @ 2.436 mls/hr 03/05/17 21:00 03/06/17 10:31 Diprivan IV 14.98 mcg/kg/min .Q24H PRN 7.3 mls/hr TITRATE PER MD ORDER Administration Protocol 5 MCG/KG/MIN Insulin Human Regular 0 unit 03/05/17 00:45 03/06/17 17:55 Novolin R SC 4 unit Q6H TENA Administration Protocol Lorazepam 1 mg 03/05/17 00:57 03/05/17 20:20 Ativan IVP 1 mg Q2H PRN Administration Seizure activity Pantoprazole Sodium 40 mg 03/05/17 10:00 03/06/17 10:28 Protonix Inj IVP 40 mg DAILY TENA Administration - Patient Studies Lab Studies: Microbiology Studies 03/04/17 20:30 Blood Culture - Preliminary Blood NO GROWTH AFTER 24 HOURS 03/04/17 21:00 Blood Culture - Preliminary Blood NO GROWTH AFTER 24 HOURS 03/04/17 22:17 MRSA Culture (Admit) - Final Nose MRSA DETECTED 03/04/17 22:30 Urine Culture - Final Urine,Catheterized No Growth (<1,000 CFU/ML) Lab Studies 03/06/17 03/06/17 03/06/17 Range/Units 17:35 11:36 06:25 WBC (4.8-10.8) K/uL RBC (4.40-5.90) Mil/uL Hgb (12.0-18.0) g/dL Hct (35.0-51.0) % MCV (80.0-94.0) fL MCH (27.0-31.0) pg MCHC (33.0-37.0) g/dL RDW (11.5-14.5) % Plt Count (130-400) K/uL MPV (7.2-11.7) fL Neut % (Auto) (50.0-75.0) % Lymph % (Auto) (20.0-40.0) % Vance % (Auto) (0.0-10.0) % Eos % (Auto) (0.0-4.0) % Baso % (Auto) (0.0-2.0) % Neut # (1.8-7.0) K/uL Lymph # (1.0-4.3) K/uL Vance # (0.0-0.8) K/uL Eos # (0.0-0.7) K/uL Baso # (0.0-0.2) K/uL Neutrophils % (Manual) (50-75) % Band Neutrophils % (0-2) % Lymphocytes % (Manual) (20-40) % Monocytes % (Manual) (0-10) % Platelet Estimate (NORMAL) Large Platelets Hypochromasia (manual) Poikilocytosis (manual Anisocytosis (manual) Macrocytosis (manual) Ovalocytes Puncture Site Rr pCO2 32 L (35-45) mm/Hg pO2 124 H (80-100) mm/Hg HCO3 26.8 (21-28) mmol/L ABG pH 7.50 H (7.35-7.45) ABG Total CO2 26.0 (22-28) mmol/L ABG O2 Saturation 99.0 H (95-98) % ABG Base Excess 2.4 (-2.0-3.0) mmol/L Reji Test Pos ABG Potassium (3.6-5.2) mmol/L A-a O2 Difference 406.0 mm/Hg Respiratory Index 3.3 Sodium (132-148) mmol/l Chloride (98-107) mmol/L Glucose (75-110) mg/dl Lactate (0.7-2.1) mmol/L Vent Mode Prvc Mechanical Rate 18 FiO2 80.0 % Tidal Volume 450 PEEP 8 Potassium (3.6-5.2) mmol/L Carbon Dioxide (22-30) mmol/L Anion Gap (10-20) BUN (9-20) mg/dL Creatinine (0.8-1.5) mg/dL Est GFR ( Amer) Est GFR (Non-Af Amer) POC Glucose (mg/dL) 258 H 274 H (65-110) mg/dL Random Glucose (75-110) mg/dL Hemoglobin A1c (4.2-6.5) % Calcium (8.6-10.4) mg/dl Phosphorus (2.5-4.5) mg/dL Magnesium (1.6-2.3) mg/dL Total Bilirubin (0.2-1.3) mg/dL AST (17-59) U/L ALT (21-72) U/L Alkaline Phosphatase (38-126) U/L Total Protein (6.3-8.3) g/dL Albumin (3.5-5.0) g/dL Globulin (2.2-3.9) gm/dL Albumin/Globulin Ratio (1.0-2.1) Arterial Blood Potassium (3.6-5.2) mmol/L Influenza Typ A,B (EIA) (NEGATIVE) Blood Type Blood Type Confirm Antibody Screen 03/06/17 03/06/17 03/06/17 Range/Units 06:14 06:11 06:10 WBC 13.7 H (4.8-10.8) K/uL RBC 2.33 L (4.40-5.90) Mil/uL Hgb 7.0 L (12.0-18.0) g/dL Hct 20.6 L (35.0-51.0) % MCV 88.4 (80.0-94.0) fL MCH 29.9 (27.0-31.0) pg MCHC 33.8 (33.0-37.0) g/dL RDW 15.3 H (11.5-14.5) % Plt Count 165 (130-400) K/uL MPV 8.9 (7.2-11.7) fL Neut % (Auto) 88.0 H (50.0-75.0) % Lymph % (Auto) 5.7 L (20.0-40.0) % Vance % (Auto) 6.2 (0.0-10.0) % Eos % (Auto) 0.0 (0.0-4.0) % Baso % (Auto) 0.1 (0.0-2.0) % Neut # 12.1 H (1.8-7.0) K/uL Lymph # 0.8 L (1.0-4.3) K/uL Vance # 0.8 (0.0-0.8) K/uL Eos # 0.0 (0.0-0.7) K/uL Baso # 0.0 (0.0-0.2) K/uL Neutrophils % (Manual) 88 H (50-75) % Band Neutrophils % 1 (0-2) % Lymphocytes % (Manual) 6 L (20-40) % Monocytes % (Manual) 5 (0-10) % Platelet Estimate Normal (NORMAL) Large Platelets Present Hypochromasia (manual) Moderate Poikilocytosis (manual Slight Anisocytosis (manual) Slight Macrocytosis (manual) Slight Ovalocytes Slight Puncture Site pCO2 (35-45) mm/Hg pO2 (80-100) mm/Hg HCO3 (21-28) mmol/L ABG pH (7.35-7.45) ABG Total CO2 (22-28) mmol/L ABG O2 Saturation (95-98) % ABG Base Excess (-2.0-3.0) mmol/L Reji Test ABG Potassium (3.6-5.2) mmol/L A-a O2 Difference mm/Hg Respiratory Index Sodium 136 (132-148) mmol/l Chloride 97 L (98-107) mmol/L Glucose (75-110) mg/dl Lactate (0.7-2.1) mmol/L Vent Mode Mechanical Rate FiO2 % Tidal Volume PEEP Potassium 4.5 (3.6-5.2) mmol/L Carbon Dioxide 24 (22-30) mmol/L Anion Gap 20 (10-20) BUN 60 H (9-20) mg/dL Creatinine 2.9 H (0.8-1.5) mg/dL Est GFR ( Amer) 28 Est GFR (Non-Af Amer) 23 POC Glucose (mg/dL) (65-110) mg/dL Random Glucose 241 H (75-110) mg/dL Hemoglobin A1c 9.4 H (4.2-6.5) % Calcium 7.6 L (8.6-10.4) mg/dl Phosphorus 6.2 H (2.5-4.5) mg/dL Magnesium 1.5 L (1.6-2.3) mg/dL Total Bilirubin 1.0 (0.2-1.3) mg/dL AST 396 H D (17-59) U/L ALT 227 H (21-72) U/L Alkaline Phosphatase 92 (38-126) U/L Total Protein 7.1 (6.3-8.3) g/dL Albumin 3.1 L (3.5-5.0) g/dL Globulin 4.0 H (2.2-3.9) gm/dL Albumin/Globulin Ratio 0.8 L (1.0-2.1) Arterial Blood Potassium (3.6-5.2) mmol/L Influenza Typ A,B (EIA) (NEGATIVE) Blood Type Blood Type Confirm Antibody Screen 03/06/17 03/06/17 03/05/17 Range/Units 05:29 00:14 22:25 WBC (4.8-10.8) K/uL RBC (4.40-5.90) Mil/uL Hgb (12.0-18.0) g/dL Hct (35.0-51.0) % MCV (80.0-94.0) fL MCH (27.0-31.0) pg MCHC (33.0-37.0) g/dL RDW (11.5-14.5) % Plt Count (130-400) K/uL MPV (7.2-11.7) fL Neut % (Auto) (50.0-75.0) % Lymph % (Auto) (20.0-40.0) % Vance % (Auto) (0.0-10.0) % Eos % (Auto) (0.0-4.0) % Baso % (Auto) (0.0-2.0) % Neut # (1.8-7.0) K/uL Lymph # (1.0-4.3) K/uL Vance # (0.0-0.8) K/uL Eos # (0.0-0.7) K/uL Baso # (0.0-0.2) K/uL Neutrophils % (Manual) (50-75) % Band Neutrophils % (0-2) % Lymphocytes % (Manual) (20-40) % Monocytes % (Manual) (0-10) % Platelet Estimate (NORMAL) Large Platelets Hypochromasia (manual) Poikilocytosis (manual Anisocytosis (manual) Macrocytosis (manual) Ovalocytes Puncture Site Rradial pCO2 26 L (35-45) mm/Hg pO2 90 (80-100) mm/Hg HCO3 26.2 (21-28) mmol/L ABG pH 7.55 H (7.35-7.45) ABG Total CO2 23.5 (22-28) mmol/L ABG O2 Saturation 98.2 H (95-98) % ABG Base Excess 1.6 (-2.0-3.0) mmol/L Reji Test Pos ABG Potassium 5.0 (3.6-5.2) mmol/L A-a O2 Difference 448.0 mm/Hg Respiratory Index 5.0 Sodium 137.0 (132-148) mmol/l Chloride 106.0 (98-107) mmol/L Glucose 331 H (75-110) mg/dl Lactate 1.5 (0.7-2.1) mmol/L Vent Mode Prvc Mechanical Rate 24 FiO2 80.0 % Tidal Volume 450 PEEP 8 Potassium (3.6-5.2) mmol/L Carbon Dioxide (22-30) mmol/L Anion Gap (10-20) BUN (9-20) mg/dL Creatinine (0.8-1.5) mg/dL Est GFR ( Amer) Est GFR (Non-Af Amer) POC Glucose (mg/dL) 286 H 355 H (65-110) mg/dL Random Glucose (75-110) mg/dL Hemoglobin A1c (4.2-6.5) % Calcium (8.6-10.4) mg/dl Phosphorus (2.5-4.5) mg/dL Magnesium (1.6-2.3) mg/dL Total Bilirubin (0.2-1.3) mg/dL AST (17-59) U/L ALT (21-72) U/L Alkaline Phosphatase (38-126) U/L Total Protein (6.3-8.3) g/dL Albumin (3.5-5.0) g/dL Globulin (2.2-3.9) gm/dL Albumin/Globulin Ratio (1.0-2.1) Arterial Blood Potassium 5.0 (3.6-5.2) mmol/L Influenza Typ A,B (EIA) (NEGATIVE) Blood Type Blood Type Confirm Antibody Screen 03/05/17 03/05/17 03/04/17 Range/Units 19:06 18:20 20:15 WBC (4.8-10.8) K/uL RBC (4.40-5.90) Mil/uL Hgb (12.0-18.0) g/dL Hct (35.0-51.0) % MCV (80.0-94.0) fL MCH (27.0-31.0) pg MCHC (33.0-37.0) g/dL RDW (11.5-14.5) % Plt Count (130-400) K/uL MPV (7.2-11.7) fL Neut % (Auto) (50.0-75.0) % Lymph % (Auto) (20.0-40.0) % Vance % (Auto) (0.0-10.0) % Eos % (Auto) (0.0-4.0) % Baso % (Auto) (0.0-2.0) % Neut # (1.8-7.0) K/uL Lymph # (1.0-4.3) K/uL Vance # (0.0-0.8) K/uL Eos # (0.0-0.7) K/uL Baso # (0.0-0.2) K/uL Neutrophils % (Manual) (50-75) % Band Neutrophils % (0-2) % Lymphocytes % (Manual) (20-40) % Monocytes % (Manual) (0-10) % Platelet Estimate (NORMAL) Large Platelets Hypochromasia (manual) Poikilocytosis (manual Anisocytosis (manual) Macrocytosis (manual) Ovalocytes Puncture Site pCO2 (35-45) mm/Hg pO2 (80-100) mm/Hg HCO3 (21-28) mmol/L ABG pH (7.35-7.45) ABG Total CO2 (22-28) mmol/L ABG O2 Saturation (95-98) % ABG Base Excess (-2.0-3.0) mmol/L Reji Test ABG Potassium (3.6-5.2) mmol/L A-a O2 Difference mm/Hg Respiratory Index Sodium (132-148) mmol/l Chloride (98-107) mmol/L Glucose (75-110) mg/dl Lactate (0.7-2.1) mmol/L Vent Mode Mechanical Rate FiO2 % Tidal Volume PEEP Potassium (3.6-5.2) mmol/L Carbon Dioxide (22-30) mmol/L Anion Gap (10-20) BUN (9-20) mg/dL Creatinine (0.8-1.5) mg/dL Est GFR ( Amer) Est GFR (Non-Af Amer) POC Glucose (mg/dL) 271 H (65-110) mg/dL Random Glucose (75-110) mg/dL Hemoglobin A1c (4.2-6.5) % Calcium (8.6-10.4) mg/dl Phosphorus (2.5-4.5) mg/dL Magnesium (1.6-2.3) mg/dL Total Bilirubin (0.2-1.3) mg/dL AST (17-59) U/L ALT (21-72) U/L Alkaline Phosphatase (38-126) U/L Total Protein (6.3-8.3) g/dL Albumin (3.5-5.0) g/dL Globulin (2.2-3.9) gm/dL Albumin/Globulin Ratio (1.0-2.1) Arterial Blood Potassium (3.6-5.2) mmol/L Influenza Typ A,B (EIA) Negative for flu a/b (NEGATIVE) Blood Type B POSITIVE Blood Type Confirm B POSITIVE Antibody Screen Negative Laboratory Results - last 24 hr 03/04/17 03/05/17 03/05/17 20:15 18:20 19:06 WBC RBC Hgb Hct MCV MCH MCHC RDW Plt Count MPV Neut % (Auto) Lymph % (Auto) Vance % (Auto) Eos % (Auto) Baso % (Auto) Neut # Lymph # Vance # Eos # Baso # Neutrophils % (Manual) Band Neutrophils % Lymphocytes % (Manual) Monocytes % (Manual) Platelet Estimate Large Platelets Hypochromasia (manual) Poikilocytosis (manual Anisocytosis (manual) Macrocytosis (manual) Ovalocytes Puncture Site pCO2 pO2 HCO3 ABG pH ABG Total CO2 ABG O2 Saturation ABG Base Excess Reji Test ABG Potassium A-a O2 Difference Respiratory Index Sodium Chloride Glucose Lactate Vent Mode Mechanical Rate FiO2 Tidal Volume PEEP Potassium Carbon Dioxide Anion Gap BUN Creatinine Est GFR ( Amer) Est GFR (Non-Af Amer) POC Glucose (mg/dL) 271 H Random Glucose Hemoglobin A1c Calcium Phosphorus Magnesium Total Bilirubin AST ALT Alkaline Phosphatase Total Protein Albumin Globulin Albumin/Globulin Ratio Arterial Blood Potassium Influenza Typ A,B (EIA) Negative for flu a/b Blood Type B POSITIVE Blood Type Confirm B POSITIVE Antibody Screen Negative 03/05/17 03/06/17 03/06/17 22:25 00:14 05:29 WBC RBC Hgb Hct MCV MCH MCHC RDW Plt Count MPV Neut % (Auto) Lymph % (Auto) Vance % (Auto) Eos % (Auto) Baso % (Auto) Neut # Lymph # Vance # Eos # Baso # Neutrophils % (Manual) Band Neutrophils % Lymphocytes % (Manual) Monocytes % (Manual) Platelet Estimate Large Platelets Hypochromasia (manual) Poikilocytosis (manual Anisocytosis (manual) Macrocytosis (manual) Ovalocytes Puncture Site Rradial pCO2 26 L pO2 90 HCO3 26.2 ABG pH 7.55 H ABG Total CO2 23.5 ABG O2 Saturation 98.2 H ABG Base Excess 1.6 Reji Test Pos ABG Potassium 5.0 A-a O2 Difference 448.0 Respiratory Index 5.0 Sodium 137.0 Chloride 106.0 Glucose 331 H Lactate 1.5 Vent Mode Prvc Mechanical Rate 24 FiO2 80.0 Tidal Volume 450 PEEP 8 Potassium Carbon Dioxide Anion Gap BUN Creatinine Est GFR ( Amer) Est GFR (Non-Af Amer) POC Glucose (mg/dL) 355 H 286 H Random Glucose Hemoglobin A1c Calcium Phosphorus Magnesium Total Bilirubin AST ALT Alkaline Phosphatase Total Protein Albumin Globulin Albumin/Globulin Ratio Arterial Blood Potassium 5.0 Influenza Typ A,B (EIA) Blood Type Blood Type Confirm Antibody Screen 03/06/17 03/06/17 03/06/17 06:10 06:11 06:14 WBC 13.7 H RBC 2.33 L Hgb 7.0 L Hct 20.6 L MCV 88.4 MCH 29.9 MCHC 33.8 RDW 15.3 H Plt Count 165 MPV 8.9 Neut % (Auto) 88.0 H Lymph % (Auto) 5.7 L Vance % (Auto) 6.2 Eos % (Auto) 0.0 Baso % (Auto) 0.1 Neut # 12.1 H Lymph # 0.8 L Vance # 0.8 Eos # 0.0 Baso # 0.0 Neutrophils % (Manual) 88 H Band Neutrophils % 1 Lymphocytes % (Manual) 6 L Monocytes % (Manual) 5 Platelet Estimate Normal Large Platelets Present Hypochromasia (manual) Moderate Poikilocytosis (manual Slight Anisocytosis (manual) Slight Macrocytosis (manual) Slight Ovalocytes Slight Puncture Site pCO2 pO2 HCO3 ABG pH ABG Total CO2 ABG O2 Saturation ABG Base Excess Reji Test ABG Potassium A-a O2 Difference Respiratory Index Sodium 136 Chloride 97 L Glucose Lactate Vent Mode Mechanical Rate FiO2 Tidal Volume PEEP Potassium 4.5 Carbon Dioxide 24 Anion Gap 20 BUN 60 H Creatinine 2.9 H Est GFR ( Amer) 28 Est GFR (Non-Af Amer) 23 POC Glucose (mg/dL) Random Glucose 241 H Hemoglobin A1c 9.4 H Calcium 7.6 L Phosphorus 6.2 H Magnesium 1.5 L Total Bilirubin 1.0 AST 396 H D ALT 227 H Alkaline Phosphatase 92 Total Protein 7.1 Albumin 3.1 L Globulin 4.0 H Albumin/Globulin Ratio 0.8 L Arterial Blood Potassium Influenza Typ A,B (EIA) Blood Type Blood Type Confirm Antibody Screen 03/06/17 03/06/17 03/06/17 06:25 11:36 17:35 WBC RBC Hgb Hct MCV MCH MCHC RDW Plt Count MPV Neut % (Auto) Lymph % (Auto) Vance % (Auto) Eos % (Auto) Baso % (Auto) Neut # Lymph # Vance # Eos # Baso # Neutrophils % (Manual) Band Neutrophils % Lymphocytes % (Manual) Monocytes % (Manual) Platelet Estimate Large Platelets Hypochromasia (manual) Poikilocytosis (manual Anisocytosis (manual) Macrocytosis (manual) Ovalocytes Puncture Site Rr pCO2 32 L pO2 124 H HCO3 26.8 ABG pH 7.50 H ABG Total CO2 26.0 ABG O2 Saturation 99.0 H ABG Base Excess 2.4 Reji Test Pos ABG Potassium A-a O2 Difference 406.0 Respiratory Index 3.3 Sodium Chloride Glucose Lactate Vent Mode Prvc Mechanical Rate 18 FiO2 80.0 Tidal Volume 450 PEEP 8 Potassium Carbon Dioxide Anion Gap BUN Creatinine Est GFR ( Amer) Est GFR (Non-Af Amer) POC Glucose (mg/dL) 274 H 258 H Random Glucose Hemoglobin A1c Calcium Phosphorus Magnesium Total Bilirubin AST ALT Alkaline Phosphatase Total Protein Albumin Globulin Albumin/Globulin Ratio Arterial Blood Potassium Influenza Typ A,B (EIA) Blood Type Blood Type Confirm Antibody Screen Attending/Attestation - Attestation I have personally seen and examined this patient.: Yes I have fully participated in the care of the patient.: Yes I have reviewed all pertinent clinical information: Yes Notes (Text): 03/06/17 18:13 Patient seen and examined. Case discussed with house staff in the morning rounds. Status post cardiac arrest and resuscitation Worsening renal function Transfuse 2 units packed RBCs taper off Pressors as tolerated On antibiotics for an elevated white count and bilateral infiltrate Continue Keppra Repeat CAT scan of the head noted Consider repeating EEG spoke with the family at length Neurology follow-up Follow-up echocardiogram report
--- NOTE | 2017-03-06 16:00 | CT ---
PROCEDURE: CT HEAD WITHOUT CONTRAST. HISTORY: anoxia COMPARISON: Noncontrast head CT performed 03/04/17 TECHNIQUE: Axial computed tomography images were obtained through the head/brain without intravenous contrast. Radiation dose: Total exam DLP = 1282.35 mGy-cm. This CT exam was performed using one or more of the following dose reduction techniques: Automated exposure control, adjustment of the mA and/or kV according to patient size, and/or use of iterative reconstruction technique. FINDINGS: HEMORRHAGE: No intracranial hemorrhage. BRAIN: No mass effect or edema. Scattered white matter hypodensities, which are nonspecific, but often seen with chronic microvascular ischemic disease. Please note that MRI with diffusion imaging is more sensitive in the detection of acute ischemic event. VENTRICLES: No hydrocephalus. CALVARIUM: Unremarkable. PARANASAL SINUSES: Mucosal thickening the [id number]-right maxillary sinuses. MASTOID AIR CELLS: Unremarkable as visualized. No inflammatory changes. OTHER FINDINGS: None. IMPRESSION: Nonspecific white matter changes.
--- NOTE | 2017-03-06 16:15 | CP.PCM.PN ---
<Cornelia Maurer DO - Last Filed: 03/06/17 16:12> Subjective - Date & Time of Evaluation Date of Evaluation: 03/06/17 Time of Evaluation: 10:00 - Subjective Subjective: Cardiology progress note for Dr. Tate: Patient seen and examined. Patient sedated and intubated. No acute events per nursing. Patient on levophed. ROS unobtainable. Objective - Vital Signs/Intake and Output Vital Signs (last 24 hours): Temp Pulse Resp BP Pulse Ox 98.6 F 88 21 101/63 100 03/06/17 12:00 03/06/17 15:00 03/06/17 15:00 03/06/17 15:00 03/06/17 15:00 Intake and Output: 03/06/17 03/06/17 06:59 18:59 Intake Total 1342.4 1023.5 Output Total 2225 1010 Balance -882.6 13.5 - Medications Medications: Current Medications Acetaminophen (Tylenol 650mg/20.3ml Solution Ud) 650 mg PO Q4 PRN PRN Reason: temp >101 Last Admin: 03/05/17 23:05 Dose: 650 mg Albuterol/Ipratropium (Duoneb 3 Mg/0.5 Mg (3 Ml) Ud) 3 ml INH RQ6 TENA Last Admin: 03/06/17 14:25 Dose: 3 ml Artificial Tears (Lacri-Lube) 0 gm OS Q4H PRN PRN Reason: Other Last Admin: 03/06/17 14:23 Dose: 3.5 gm Furosemide (Lasix) 40 mg IVP BID [facility] Last Admin: 03/06/17 10:29 Dose: 40 mg Heparin Sodium (Porcine) (Heparin) 5,000 units SC Q8 TENA Last Admin: 03/06/17 13:06 Dose: 5,000 units Piperacillin Sod/Tazobactam Sod (Zosyn 2.25 Gm Iv Premix) 2.25 gm in 50 mls @ 100 mls/hr IVPB Q6H TENA Last Admin: 03/06/17 15:13 Dose: 100 mls/hr Vancomycin HCl/Dextrose (Vancocin) 500 mg in 100 mls @ 166.6 mls/hr IVPB Q12H [facility] Stop: 03/09/17 22:31 Last Admin: 03/06/17 10:59 Dose: 166.6 mls/hr Norepinephrine Bitartrate 8 mg (/ Sodium Chloride) 258 mls @ 7.74 mls/hr IV .Q24H PRN; Protocol; 4 MCG/MIN PRN Reason: TITRATE PER MD ORDER Last Admin: 03/06/17 08:01 Dose: 4 mcg/min, 7.74 mls/hr Levetiracetam 500 mg/ Sodium (Chloride) 105 mls @ 420 mls/hr IVPB Q12H TENA Last Admin: 03/06/17 14:22 Dose: 420 mls/hr Azithromycin 500 mg/ Sodium (Chloride) 250 mls @ 250 mls/hr IVPB DAILY TENA Last Admin: 03/06/17 10:55 Dose: 250 mls/hr Dopamine HCl/Dextrose (Dopamine 400mg/250ml D5w) 400 mg in 250 mls @ 15.225 mls /hr IV .[id number] PRN; Protocol; 5 MCG/KG/MIN PRN Reason: TITRATE PER MD ORDER Last Titration: 03/05/17 23:00 Dose: 0 mcg/kg/min, 0 mls/hr Propofol (Diprivan) 1,000 mg in 100 mls @ 2.436 mls/hr IV .Q24H PRN; Protocol; 5 MCG/KG/MIN PRN Reason: TITRATE PER MD ORDER Last Admin: 03/06/17 10:31 Dose: 14.98 mcg/kg/min, 7.3 mls/hr Insulin Human Regular (Novolin R) 0 unit SC Q6H TENA PRN Reason: Protocol Last Admin: 03/06/17 13:06 Dose: 4 unit Lorazepam (Ativan) 1 mg IVP Q2H PRN PRN Reason: Seizure activity Last Admin: 03/05/17 20:20 Dose: 1 mg Pantoprazole Sodium (Protonix Inj) 40 mg IVP DAILY [facility] Last Admin: 03/06/17 10:28 Dose: 40 mg - Labs Labs: 03/06/17 06:11 03/06/17 06:10 PT 15.6 SECONDS (9.7-12.2) H 03/04/17 19:55 INR 1.4 03/04/17 19:55 APTT 31 SECONDS (21-34) 03/04/17 19:55 - Constitutional Appears: No Acute Distress - Head Exam Head Exam: ATRAUMATIC - ENT Exam ENT Exam: Mucous Membranes Moist Additional comments: intubated - Respiratory Exam Respiratory Exam: Rales, NORMAL BREATHING PATTERN. absent: Respiratory Distress - Cardiovascular Exam Cardiovascular Exam: +S1, +S2 - GI/Abdominal Exam GI & Abdominal Exam: Soft, Normal Bowel Sounds - Extremities Exam Additional comments: IO line left leg left leg cool to touch right foot wound, pressure offloading boot present right femoral line - Neurological Exam Neurological Exam: absent: Alert, Awake - Skin Skin Exam: Normal Color Additional comments: left leg cool to touch compared to right Assessment and Plan - Assessment and Plan (Free Text) Assessment: 52 year old male 52 y/o M with pmhx of HTN, DM II, kidney disease s/p cardiac arrest, currently intubated in ICU. Asystole cardiac arrest continue pressors as needed continue medical management at this time echocardiogram completed, will review study Cool left leg recommend vascular evaluation Right foot ulcer continue antibiotics as per ID SAUNDRA on CKD continue to monitor renal function as per nephrology, patient with SAUNDRA with likely underlying CKD continue lasix for negative fluid balance Plan as per Dr. Tate <Adiel Tate - Last Filed: 03/06/17 23:13> Objective - Vital Signs/Intake and Output Vital Signs (last 24 hours): Temp Pulse Resp BP Pulse Ox 99.8 F H 100 H 22 113/69 100 03/06/17 22:43 03/06/17 22:43 03/06/17 22:43 03/06/17 22:43 03/06/17 21:35 Intake and Output: 03/06/17 03/07/17 18:59 06:59 Intake Total 1275.9 646.5 Output Total 1610 300 Balance -334.1 346.5 - Medications Medications: Current Medications Acetaminophen (Tylenol 650mg/20.3ml Solution Ud) 650 mg PO Q4 PRN PRN Reason: temp >101 Last Admin: 03/05/17 23:05 Dose: 650 mg Albuterol/Ipratropium (Duoneb 3 Mg/0.5 Mg (3 Ml) Ud) 3 ml INH RQ6 TENA Last Admin: 03/06/17 19:08 Dose: 3 ml Artificial Tears (Lacri-Lube) 0 gm OS Q4H PRN PRN Reason: Other Last Admin: 03/06/17 14:23 Dose: 3.5 gm Furosemide (Lasix) 40 mg IVP BID [facility] Last Admin: 03/06/17 17:45 Dose: 40 mg Heparin Sodium (Porcine) (Heparin) 5,000 units SC Q8 [facility] Last Admin: 03/06/17 22:03 Dose: 5,000 units Piperacillin Sod/Tazobactam Sod (Zosyn 2.25 Gm Iv Premix) 2.25 gm in 50 mls @ 100 mls/hr IVPB Q6H [facility] Last Admin: 03/06/17 21:53 Dose: 100 mls/hr Vancomycin HCl/Dextrose (Vancocin) 500 mg in 100 mls @ 166.6 mls/hr IVPB Q12H [facility] Stop: 03/09/17 22:31 Last Admin: 03/06/17 22:03 Dose: 166.6 mls/hr Norepinephrine Bitartrate 8 mg (/ Sodium Chloride) 258 mls @ 7.74 mls/hr IV .Q24H PRN; Protocol; 4 MCG/MIN PRN Reason: TITRATE PER MD ORDER Last Titration: 03/06/17 19:30 Dose: 2 mcg/min, 3.87 mls/hr Levetiracetam 500 mg/ Sodium (Chloride) 105 mls @ 420 mls/hr IVPB Q12H [facility] Last Admin: 03/06/17 14:22 Dose: 420 mls/hr Azithromycin 500 mg/ Sodium (Chloride) 250 mls @ 250 mls/hr IVPB DAILY [facility] Last Admin: 03/06/17 10:55 Dose: 250 mls/hr Dopamine HCl/Dextrose (Dopamine 400mg/250ml D5w) 400 mg in 250 mls @ 15.225 mls /hr IV .[id number] PRN; Protocol; 5 MCG/KG/MIN PRN Reason: TITRATE PER MD ORDER Last Titration: 03/05/17 23:00 Dose: 0 mcg/kg/min, 0 mls/hr Propofol (Diprivan) 1,000 mg in 100 mls @ 2.436 mls/hr IV .Q24H PRN; Protocol; 5 MCG/KG/MIN PRN Reason: TITRATE PER MD ORDER Last Admin: 03/06/17 22:30 Dose: 14.98 mcg/kg/min, 7.3 mls/hr Insulin Human Regular (Novolin R) 0 unit SC Q6H TENA PRN Reason: Protocol Last Admin: 03/06/17 17:55 Dose: 4 unit Lorazepam (Ativan) 1 mg IVP Q2H PRN PRN Reason: Seizure activity Last Admin: 03/05/17 20:20 Dose: 1 mg Pantoprazole Sodium (Protonix Inj) 40 mg IVP DAILY TENA Last Admin: 03/06/17 10:28 Dose: 40 mg - Labs Labs: 03/06/17 06:11 03/06/17 06:10 PT 15.6 SECONDS (9.7-12.2) H 03/04/17 19:55 INR 1.4 03/04/17 19:55 APTT 31 SECONDS (21-34) 03/04/17 19:55 Assessment and Plan - Assessment and Plan (Free Text) Assessment: Patient seen and evaluated with the medical driver Plan of care as documented
--- NOTE | 2017-03-06 17:26 | CARD ---
APPROVED REPORT EXAM: Two-dimensional and M-mode echocardiogram with Doppler and color Doppler. Other Information Quality : GoodRhythm : NSR INDICATION Cardiac Disease: CARDIAC ARREST M-Mode DIMENSIONS RVDd2.03 (2.1-3.2cm)Left Atrium (MM)2.91 (2.5-4.0cm) IVSd0.89 (0.7-1.1cm)Aortic Root3.13 (2.2-3.7cm) LVDd5.13 (4.0-5.6cm)Aortic Cusp Exc.1.59 (1.5-2.0cm) PWd0.85 (0.7-1.1cm)FS (%) 21 % LVDs4.06 (2.0-3.8cm)LVEF (%)42 (>50%) Aortic Valve AoV Peak Etfsvdmx63.1cm/Joey Peak GR.4mmHg Mitral Valve MV E Uwvebptk92.2cm/sMV A Zeufoenz70.9cm/sE/A ratio1.5 TDI E/Lateral E'0.0E/Medial E'0.0 Tricuspid Valve TR Peak [id number] Peak [id number] LEFT VENTRICLE The left ventricle is normal size. There is normal left ventricular wall thickness. The systolic function is mildly to moderately impaired. There is global hypokinesis of the left ventricle. The left ventricular diastolic function is normal. RIGHT VENTRICLE The right ventricle is normal size. ATRIA The left atrium size is normal. The right atrium size is normal. AORTIC VALVE The aortic valve is normal in structure. MITRAL VALVE Mitral regurgitation is trace. TRICUSPID VALVE There is trace to mild tricuspid regurgitation. <Conclusion> Mild to mderate LV systolic dysfunction. Normal chamber size. Trace MR and TR. Trace pericardial effusion. Pleural effusion.
--- NOTE | 2017-03-06 18:50 | CP.PCM.PN ---
Subjective - Date & Time of Evaluation Date of Evaluation: 03/06/17 Time of Evaluation: 13:20 - Subjective Subjective: clinically same Objective - Vital Signs/Intake and Output Vital Signs (last 24 hours): Temp Pulse Resp BP Pulse Ox 98.6 F 93 H 20 112/68 100 03/06/17 18:19 03/06/17 18:19 03/06/17 18:19 03/06/17 18:19 03/06/17 18:12 Intake and Output: 03/06/17 03/06/17 06:59 18:59 Intake Total 1342.4 1275.9 Output Total 2225 1610 Balance -882.6 -334.1 - Medications Medications: Current Medications Acetaminophen (Tylenol 650mg/20.3ml Solution Ud) 650 mg PO Q4 PRN PRN Reason: temp >101 Last Admin: 03/05/17 23:05 Dose: 650 mg Albuterol/Ipratropium (Duoneb 3 Mg/0.5 Mg (3 Ml) Ud) 3 ml INH RQ6 TENA Last Admin: 03/06/17 14:25 Dose: 3 ml Artificial Tears (Lacri-Lube) 0 gm OS Q4H PRN PRN Reason: Other Last Admin: 03/06/17 14:23 Dose: 3.5 gm Furosemide (Lasix) 40 mg IVP BID TENA Last Admin: 03/06/17 17:45 Dose: 40 mg Heparin Sodium (Porcine) (Heparin) 5,000 units SC Q8 TENA Last Admin: 03/06/17 13:06 Dose: 5,000 units Piperacillin Sod/Tazobactam Sod (Zosyn 2.25 Gm Iv Premix) 2.25 gm in 50 mls @ 100 mls/hr IVPB Q6H TENA Last Admin: 03/06/17 15:13 Dose: 100 mls/hr Vancomycin HCl/Dextrose (Vancocin) 500 mg in 100 mls @ 166.6 mls/hr IVPB Q12H TENA Stop: 03/09/17 22:31 Last Admin: 03/06/17 10:59 Dose: 166.6 mls/hr Norepinephrine Bitartrate 8 mg (/ Sodium Chloride) 258 mls @ 7.74 mls/hr IV .Q24H PRN; Protocol; 4 MCG/MIN PRN Reason: TITRATE PER MD ORDER Last Admin: 03/06/17 08:01 Dose: 4 mcg/min, 7.74 mls/hr Levetiracetam 500 mg/ Sodium (Chloride) 105 mls @ 420 mls/hr IVPB Q12H TENA Last Admin: 03/06/17 14:22 Dose: 420 mls/hr Azithromycin 500 mg/ Sodium (Chloride) 250 mls @ 250 mls/hr IVPB DAILY TENA Last Admin: 03/06/17 10:55 Dose: 250 mls/hr Dopamine HCl/Dextrose (Dopamine 400mg/250ml D5w) 400 mg in 250 mls @ 15.225 mls /hr IV .[id number] PRN; Protocol; 5 MCG/KG/MIN PRN Reason: TITRATE PER MD ORDER Last Titration: 03/05/17 23:00 Dose: 0 mcg/kg/min, 0 mls/hr Propofol (Diprivan) 1,000 mg in 100 mls @ 2.436 mls/hr IV .Q24H PRN; Protocol; 5 MCG/KG/MIN PRN Reason: TITRATE PER MD ORDER Last Admin: 03/06/17 10:31 Dose: 14.98 mcg/kg/min, 7.3 mls/hr Insulin Human Regular (Novolin R) 0 unit SC Q6H TENA PRN Reason: Protocol Last Admin: 03/06/17 17:55 Dose: 4 unit Lorazepam (Ativan) 1 mg IVP Q2H PRN PRN Reason: Seizure activity Last Admin: 03/05/17 20:20 Dose: 1 mg Pantoprazole Sodium (Protonix Inj) 40 mg IVP DAILY [facility] Last Admin: 03/06/17 10:28 Dose: 40 mg - Labs Labs: 03/06/17 06:11 03/06/17 06:10 PT 15.6 SECONDS (9.7-12.2) H 03/04/17 19:55 INR 1.4 03/04/17 19:55 APTT 31 SECONDS (21-34) 03/04/17 19:55 - Constitutional Appears: Well - Head Exam Head Exam: ATRAUMATIC, NORMAL INSPECTION, NORMOCEPHALIC - Eye Exam Eye Exam: EOMI, Normal appearance, PERRL Pupil Exam: NORMAL ACCOMODATION, PERRL - ENT Exam ENT Exam: Mucous Membranes Moist, Normal Exam - Neck Exam Neck Exam: Full ROM, Normal Inspection. absent: Lymphadenopathy - Respiratory Exam Respiratory Exam: Decreased Breath Sounds - Cardiovascular Exam Cardiovascular Exam: REGULAR RHYTHM, +S1, +S2 - GI/Abdominal Exam GI & Abdominal Exam: Soft, Diminished Bowel Sounds - Rectal Exam Rectal Exam: Deferred Assessment and Plan (1) SAUNDRA (acute kidney injury) Status: Resolved (2) Anemia Status: Acute (3) Anoxic encephalopathy Status: Acute (4) Anoxic encephalopathy Status: Acute (5) Cardiac arrest Status: Acute (6) CHF (congestive heart failure) Status: Acute (7) Coagulopathy Status: Acute (8) Open wound of right foot with complication Status: Acute (9) Respiratory failure Status: Acute - Assessment and Plan (Free Text) Plan: Patient examined. CT head done. Chronic microvascular ischemic changes present. EKG suggestive of lower complexes. ST and T wave abnormality. Lateral ischemia. Prolonged QT. X-ray chest suggestive of dense consolidative opacities in both lungs suggestive of underlying edema and infiltrate. ET tube in situ. 2D echo suggestive of trace pericardial effusion. Rest NAD. Cardio consult done. Advised to continue pressor indications, medical management, antibiotics, and close monitoring of renal function. Continue piperacillin tazobactam, vancomycin, pressure agent norepinephrine, azithromycin, and supportive medications.
[2017-03-07] MEDS: (Novolin R) Insulin Human Regular 100 units/ml vial SC SCH ×4 (01:12→18:01)
[2017-03-07] MEDS: Albuterol-Ipratrop 3 mg / 0.5 (3 ml) UD INH SCH ×4 (01:20→19:29)
[2017-03-07] MEDS: levETIRAcetam 500 MG in Sodium Chloride 0.9% 100 ML IVPB SCH ×2 (02:43→14:29)
[2017-03-07] MEDS: Piperacill/Tazo 2.25gm in Dex 2.25 GM/50 ML BAG IVPB SCH ×4 (04:31→21:01)
[2017-03-07 05:32] LABS: ABG ALLEN TEST POS; ABG MECHANICAL RATE 18; ARTERIAL BLOOD GAS MODE PRVC; ARTERIAL BLOOD HGB O2 SAT 97.5 % (95.0-98.0); ATERIAL BLOOD GAS PEEP 8; CARBOXYHEMOGLOBIN 1.6 % (0.5-1.5); DRAW SITE RR; HHB 0.4 % (0.0-5.0); METHEMOGLOBIN 0.5 % (0.0-3.0)
[2017-03-07 06:29] LABS: BASO % 0.3 % (0.0-2.0); EOS % 0.1 % (0.0-4.0); HEMATOCRIT 28.2 % (35.0-51.0); LYMPH % 7.4 % (20.0-40.0); MEAN CELL VOLUME 88.8 fL (80.0-94.0); MEAN CORPUSCULAR HEMOGLOBIN 30.4 pg (27.0-31.0); MEAN CORPUSCULAR HGB CONC 34.2 g/dL (33.0-37.0); MEAN PLATELET VOLUME 9.3 fL (7.2-11.7); MONO # 0.6 K/uL (0.0-0.8); MONO % 4.1 % (0.0-10.0); PLATELET COUNT 156 K/uL (130-400); RED CELL DISTRIBUTION WIDTH 15.9 % (11.5-14.5); WHITE BLOOD COUNT 13.7 K/uL (4.8-10.8)
[2017-03-07 06:40] LABS: POTASSIUM 4.2 mmol/L (3.6-5.2)
[2017-03-07 06:42] LABS: ALB/GLOB RATIO 0.8 (1.0-2.1); BILIRUBIN,TOTAL 1.4 mg/dL (0.2-1.3); TOTAL PROTEIN 7.2 g/dL (6.3-8.3)
[2017-03-07 06:43] LABS: CALCIUM 7.8 mg/dl (8.6-10.4); MAGNESIUM 1.8 mg/dL (1.6-2.3)
[2017-03-07 08:30] LABS: NEUTROPHIL 84 % (50-75); TOTAL CELLS COUNTED 100
[2017-03-07 08:31] LABS: LARGE PLATELETS PRESENT
--- NOTE | 2017-03-07 08:40 | RAD ---
HISTORY: intubated COMPARISON: Portable chest 03/06/2017. FINDINGS: Endotracheal tube is unchanged in position with nasogastric tube again identified placed entry into the abdomen. LUNGS: Slightly diminished CHF pattern is appreciated with diminishing parahilar airspace disease noted and hypervascularity appearing diminished as well. PLEURA: Left pleural effusion remains. None is clearly evident on the right. CARDIOVASCULAR: Stable cardiomegaly. Diminishing hypervascular perihilar changes. OSSEOUS STRUCTURES: No significant abnormalities. VISUALIZED UPPER ABDOMEN: Normal. OTHER FINDINGS: None. IMPRESSION: Improving CHF. Minimal left pleural effusion again evident. Continued clinical and radiographic monitoring are advised.
[2017-03-07] MEDS: Azithromycin 500 MG in Sodium Chloride 0.9% 250 ML IVPB SCH (10:14)
[2017-03-07] MEDS: Vancomycin 500mg/D5W 100 ml 500 MG/100 ML BAG IVPB SCH ×2 (10:14→21:36)
--- NOTE | 2017-03-07 10:30 | PN ---
DATE: 03/06/2017 TIME OF EVALUATION: 07:05 a.m. NEUROLOGICAL PROBLEM: Anoxic encephalopathy complicated with status epilepticus. PHYSICAL EXAMINATION: VITAL SIGNS: Blood pressure 96/57, mean arterial pressure of 70, respiratory rate 22 on vent, pulse rate 85 and regular, and temperature afebrile. NEUROLOGIC: The patient remain comatose on propofol drip. The patient earlier got Ativan rescue dose for his rhythmic lid twitching. Examination shows good pupillary reflex and no corneal reflex, no oculocephalic reflex noted. No gag on manipulating the endotracheal tube. Flaccid, quadriplegic, areflexic. Plantars are mute. The patient has had electroencephalogram, which was reviewed by me showed scattered myoclonic jerk manifesting with polyphasic high amplitude. Generalized activity is followed with burst suppression. The patient is recommended to have followup CT of the head and cerebral flow nuclear scan study to assist cerebral blood flow. Overall condition is grave, which is irreversible. 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 Continue the present management. Ronnie Rascon MD
[2017-03-07] MEDS: Propofol 10 mg/ml 1,000 MG/100 ML VIAL IV PRN ×2 (12:15→19:30)
--- NOTE | 2017-03-07 12:21 | CP.PCM.PN ---
Subjective - Date & Time of Evaluation Date of Evaluation: 03/07/17 Time of Evaluation: 12:19 - Subjective Subjective: UO excellent- lasix dose decreased Off pressors- levo just stopped On sedation; moves extremities Remains on vent Creat same at 2.9 Lytes acceptable CXR- less CHF Objective - Vital Signs/Intake and Output Vital Signs (last 24 hours): Temp Pulse Resp BP Pulse Ox 98.9 F 99 H 19 99/58 L 100 03/07/17 08:00 03/07/17 10:37 03/07/17 10:37 03/07/17 10:37 03/07/17 10:37 Intake and Output: 03/07/17 03/07/17 06:59 18:59 Intake Total 1750.8 436.5 Output Total 1850 715 Balance -99.2 -278.5 - Medications Medications: Current Medications Acetaminophen (Tylenol 650mg/20.3ml Solution Ud) 650 mg PO Q4 PRN PRN Reason: temp >101 Last Admin: 03/05/17 23:05 Dose: 650 mg Albuterol/Ipratropium (Duoneb 3 Mg/0.5 Mg (3 Ml) Ud) 3 ml INH RQ6 TENA Last Admin: 03/07/17 07:18 Dose: 3 ml Artificial Tears (Lacri-Lube) 0 gm OS Q4H PRN PRN Reason: Other Last Admin: 03/06/17 14:23 Dose: 3.5 gm Furosemide (Lasix) 40 mg IVP DAILY [facility] Last Admin: 03/07/17 10:13 Dose: 40 mg Heparin Sodium (Porcine) (Heparin) 5,000 units SC Q8 TENA Last Admin: 03/07/17 06:31 Dose: 5,000 units Piperacillin Sod/Tazobactam Sod (Zosyn 2.25 Gm Iv Premix) 2.25 gm in 50 mls @ 100 mls/hr IVPB Q6H TENA Last Admin: 03/07/17 08:44 Dose: 100 mls/hr Vancomycin HCl/Dextrose (Vancocin) 500 mg in 100 mls @ 166.6 mls/hr IVPB Q12H TENA Stop: 03/09/17 22:31 Last Admin: 03/07/17 10:14 Dose: 166.6 mls/hr Norepinephrine Bitartrate 8 mg (/ Sodium Chloride) 258 mls @ 7.74 mls/hr IV .Q24H PRN; Protocol; 4 MCG/MIN PRN Reason: TITRATE PER MD ORDER Last Titration: 03/07/17 01:00 Dose: 0 mcg/min, 0 mls/hr Levetiracetam 500 mg/ Sodium (Chloride) 105 mls @ 420 mls/hr IVPB Q12H TENA Last Admin: 03/07/17 02:43 Dose: 420 mls/hr Azithromycin 500 mg/ Sodium (Chloride) 250 mls @ 250 mls/hr IVPB DAILY TENA Last Admin: 03/07/17 10:14 Dose: 250 mls/hr Dopamine HCl/Dextrose (Dopamine 400mg/250ml D5w) 400 mg in 250 mls @ 15.225 mls /hr IV .[id number] PRN; Protocol; 5 MCG/KG/MIN PRN Reason: TITRATE PER MD ORDER Last Titration: 03/05/17 23:00 Dose: 0 mcg/kg/min, 0 mls/hr Propofol (Diprivan) 1,000 mg in 100 mls @ 2.436 mls/hr IV .Q24H PRN; Protocol; 5 MCG/KG/MIN PRN Reason: TITRATE PER MD ORDER Last Admin: 03/06/17 22:30 Dose: 14.98 mcg/kg/min, 7.3 mls/hr Insulin Human Regular (Novolin R) 0 unit SC Q6H TENA PRN Reason: Protocol Last Admin: 03/07/17 12:12 Dose: 2 unit Lorazepam (Ativan) 1 mg IVP Q2H PRN PRN Reason: Seizure activity Last Admin: 03/05/17 20:20 Dose: 1 mg Pantoprazole Sodium (Protonix Inj) 40 mg IVP DAILY [facility] Last Admin: 03/07/17 10:13 Dose: 40 mg - Labs Labs: 03/07/17 06:20 03/07/17 06:17 PT 15.6 SECONDS (9.7-12.2) H 03/04/17 19:55 INR 1.4 03/04/17 19:55 APTT 31 SECONDS (21-34) 03/04/17 19:55 - Constitutional Appears: Toxic, Chronically Ill - Head Exam Head Exam: ATRAUMATIC, NORMAL INSPECTION - Neck Exam Neck Exam: Normal Inspection. absent: Tenderness - Respiratory Exam Respiratory Exam: Clear to Ausculation Bilateral, Respiratory Distress - Cardiovascular Exam Cardiovascular Exam: REGULAR RHYTHM, +S1 - GI/Abdominal Exam GI & Abdominal Exam: Soft. 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
--- NOTE | 2017-03-07 12:58 | PN ---
DATE: 03/07/2017 TIME OF EVALUATION: 7;25 a.m. NEUROLOGIC PROBLEM: Anoxic encephalopathy with status epilepticus. PHYSICAL EXAMINATION: VITAL SIGNS: Blood pressure 87/62, mean arterial pressure of 70, respiratory rate 16, and temperature afebrile with pulse rate 97. The patient remains obtunded. Some partial eye opening. Corneal reflex absent. Pupil reflex present. No oculocephalic. On manipulating endotracheal tube during suction, the patient shows some reflex movement of both upper and lower extremities. The patient not responding to noxious stimuli on subungual pressure. Reflexes are absent. Plantars are mute. The patient does not show any significant recovery from the treatment; however, recurrent episodic jerky movement are all absent. Clinically, the patient is not seizing. 1. Cerebral blood flow was on hold because of some physiological reflexes regained yesterday. 2. EEG will be done today to assess cerebral activities. 3. Continue with the present management. Ronnie Rascon MD
--- NOTE | 2017-03-07 14:36 | CP.CCUPN ---
Addendum entered and electronically signed by Temi Rosales 03/07/17 16:28 : Right femoral TLC removed, tip intact. Gauze applied to site and pressure held for 10 minutes. Pressure dressing applied. No blood loss. Patient tolerated, will monitor. Original Note: <Temi Rosales - Last Filed: 03/07/17 14:16> CCU Subjective - Physician Review Subjective (Free Text): Patient seen and examined at bedside. ROS unobtainable due to patient's current clinical status. CCU Objective - Vital Signs / Intake & Output Vital Signs (Last 4 hours): Vital Signs Temp Pulse Resp BP Pulse Ox 03/07/17 14:07 95 H 17 104/62 100 03/07/17 14:00 100 H 18 100 03/07/17 13:37 116 H 21 114/72 100 03/07/17 13:30 103 H 25 H 100 03/07/17 13:07 116 H 22 121/64 100 03/07/17 13:00 95 H 16 100 03/07/17 12:42 99 H 17 114/64 100 03/07/17 12:38 102 H 25 H 72/45 L 100 03/07/17 12:30 99 H 16 100 03/07/17 12:08 100 H 23 131/66 100 03/07/17 12:00 98.3 F 124 H 22 100 03/07/17 11:37 98 H 15 97/57 L 99 03/07/17 11:30 98 H 17 100 03/07/17 11:06 95 H 15 89/54 L 03/07/17 11:00 93 H 16 100 03/07/17 10:37 99 H 19 99/58 L 100 03/07/17 10:30 91 H 14 99 Intake and Output (Last 8hrs): Intake & Output 03/06/17 03/07/17 03/07/17 22:59 06:59 14:59 Intake Total 1269.0 799.0 436.5 Output Total 1675 950 715 Balance -406.0 -151.0 -278.5 Weight 179 lb 0.246 oz Intake: IV 189 10 Intake, IV Amount 297.0 214.0 436.5 Right Antecubital 150 150 400 Right Distal Port Femoral 45.9 5.6 Right Medial Port Femoral 51.1 58.4 36.5 Right Proximal Port 50 Femoral Blood Product 783 575 Red Blood Cells Cpd As1 0 325 Lr Unit [id number] Red Blood Cells Cpd As1 325 Lr Unit [id number] Output: Urine 1675 950 715 Urethral (Gipson) 1675 950 715 Other: # Bowel Movements 1 1 0 - Physical Exam Head: Positive for: Atraumatic, Normocephalic Mouth: Positive for: Moist Mucous Membranes Respiratory/Chest: Positive for: Rales Cardiovascular: Positive for: Regular Rate and Rhythm, Normal S1, S2 Abdomen: Negative for: Distention Lower Extremity: Positive for: Other (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 Negative for: Alert, Oriented x 3 - Medications Active Medications: Active Medications Generic Name Dose Route Start Last Admin Trade Name Freq PRN Reason Stop Dose Admin Acetaminophen 650 mg 03/05/17 22:55 03/05/17 23:05 Tylenol 650mg/20.3ml Solution Ud PO 650 mg Q4 PRN Administration temp >101 Albuterol/Ipratropium 3 ml 03/05/17 14:00 03/07/17 14:08 Duoneb 3 Mg/0.5 Mg (3 Ml) Ud INH 3 ml RQ6 TENA Administration Artificial Tears 0 gm 03/06/17 10:04 03/06/17 14:23 Lacri-Lube OS 3.5 gm Q4H PRN Administration Other Furosemide 40 mg 03/07/17 10:00 03/07/17 10:13 Lasix IVP 40 mg DAILY TENA Administration Heparin Sodium (Porcine) 5,000 units 03/05/17 06:00 03/07/17 13:34 Heparin SC 5,000 units Q8 TENA Administration Piperacillin Sod/Tazobactam Sod 2.25 gm in 50 mls @ 100 mls/hr 03/04/17 21:30 03/07/17 08:44 Zosyn 2.25 Gm Iv Premix IVPB 100 mls/hr Q6H TENA Administration Vancomycin HCl/Dextrose 500 mg in 100 mls @ 166.6 mls/hr 03/04/17 22:30 03/07 10:14 Vancocin IVPB 03/09/17 22:31 166.6 mls/hr Q12H TENA Administration Norepinephrine Bitartrate 8 mg 258 mls @ 7.74 mls/hr 03/05/17 01:00 03/07/17 01:00 / Sodium Chloride IV 0 mcg/min .Q24H PRN 0 mls/hr TITRATE PER MD ORDER Titration Protocol 4 MCG/MIN Levetiracetam 500 mg/ Sodium 105 mls @ 420 mls/hr 03/05/17 02:45 03/07/17 02: 43 Chloride IVPB 420 mls/hr Q12H TENA Administration Azithromycin 500 mg/ Sodium 250 mls @ 250 mls/hr 03/05/17 13:00 03/07/17 10: 14 Chloride IVPB 250 mls/hr DAILY TENA Administration Dopamine HCl/Dextrose 400 mg in 250 mls @ 15.225 mls/hr 03/05/17 20:45 23:00 Dopamine 400mg/250ml D5w IV 0 mcg/kg/min .[id number] PRN 0 mls/hr TITRATE PER MD ORDER Titration Protocol 5 MCG/KG/MIN Propofol 1,000 mg in 100 mls @ 2.436 mls/hr 03/05/17 21:00 03/06/17 22:30 Diprivan IV 14.98 mcg/kg/min .Q24H PRN 7.3 mls/hr TITRATE PER MD ORDER Administration Protocol 5 MCG/KG/MIN Insulin Human Regular 0 unit 03/05/17 00:45 03/07/17 12:12 Novolin R SC 2 unit Q6H TENA Administration Protocol Lorazepam 1 mg 03/05/17 00:57 03/05/17 20:20 Ativan IVP 1 mg Q2H PRN Administration Seizure activity Pantoprazole Sodium 40 mg 03/05/17 10:00 03/07/17 10:13 Protonix Inj IVP 40 mg DAILY TENA Administration - Patient Studies Lab Studies: Microbiology Studies 03/04/17 20:30 Blood Culture - Preliminary Blood NO GROWTH AFTER 24 HOURS 03/04/17 21:00 Blood Culture - Preliminary Blood NO GROWTH AFTER 24 HOURS 03/04/17 22:17 MRSA Culture (Admit) - Final Nose MRSA DETECTED 03/04/17 22:30 Urine Culture - Final Urine,Catheterized No Growth (<1,000 CFU/ML) Lab Studies 03/07/17 03/07/17 03/07/17 Range/Units 11:39 06:42 06:20 WBC 13.7 H (4.8-10.8) K/uL RBC 3.17 L (4.40-5.90) Mil/uL Hgb 9.6 L D (12.0-18.0) g/dL Hct 28.2 L (35.0-51.0) % MCV 88.8 (80.0-94.0) fL MCH 30.4 (27.0-31.0) pg MCHC 34.2 (33.0-37.0) g/dL RDW 15.9 H (11.5-14.5) % Plt Count 156 (130-400) K/uL MPV 9.3 (7.2-11.7) fL Neut % (Auto) 88.1 H (50.0-75.0) % Lymph % (Auto) 7.4 L (20.0-40.0) % [place] % (Auto) 4.1 (0.0-10.0) % Eos % (Auto) 0.1 (0.0-4.0) % Baso % (Auto) 0.3 (0.0-2.0) % Neut # 12.1 H (1.8-7.0) K/uL Lymph # 1.0 (1.0-4.3) K/uL [place] # 0.6 (0.0-0.8) K/uL Eos # 0.0 (0.0-0.7) K/uL Baso # 0.0 (0.0-0.2) K/uL Neutrophils % (Manual) 84 H (50-75) % Band Neutrophils % 1 (0-2) % Lymphocytes % (Manual) 9 L (20-40) % Monocytes % (Manual) 6 (0-10) % Platelet Estimate Normal (NORMAL) Large Platelets Present Hypochromasia (manual) Slight Poikilocytosis (manual Slight Anisocytosis (manual) Slight Macrocytosis (manual) Slight Target Cells Slight Puncture Site pCO2 (35-45) mm/Hg pO2 (80-100) mm/Hg HCO3 (21-28) mmol/L ABG pH (7.35-7.45) ABG Total CO2 (22-28) mmol/L ABG O2 Saturation (95-98) % ABG Base Excess (-2.0-3.0) mmol/L ABG Hemoglobin (11.7-17.4) g/dL ABG Carboxyhemoglobin (0.5-1.5) % POC ABG HHb (Measured) (0.0-5.0) % ABG Methemoglobin (0.0-3.0) % Reji Test A-a O2 Difference mm/Hg Respiratory Index Hgb O2 Saturation (95.0-98.0) % Vent Mode Mechanical Rate FiO2 % Tidal Volume PEEP Sodium (132-148) mmol/L Potassium (3.6-5.2) mmol/L Chloride (98-107) mmol/L Carbon Dioxide (22-30) mmol/L Anion Gap (10-20) BUN (9-20) mg/dL Creatinine (0.8-1.5) mg/dL Est GFR ( Amer) Est GFR (Non-Af Amer) POC Glucose (mg/dL) 183 H (65-110) mg/dL Random Glucose (75-110) mg/dL Calcium (8.6-10.4) mg/dl Phosphorus (2.5-4.5) mg/dL Magnesium (1.6-2.3) mg/dL Total Bilirubin (0.2-1.3) mg/dL AST (17-59) U/L ALT (21-72) U/L Alkaline Phosphatase (38-126) U/L Total Protein (6.3-8.3) g/dL Albumin (3.5-5.0) g/dL Globulin (2.2-3.9) gm/dL Albumin/Globulin Ratio (1.0-2.1) Stool Occult Blood Negative (NEGATIVE) Blood Type Blood Type Confirm Antibody Screen 03/07/17 03/07/17 03/07/17 Range/Units 06:17 05:06 04:57 WBC (4.8-10.8) K/uL RBC (4.40-5.90) Mil/uL Hgb (12.0-18.0) g/dL Hct (35.0-51.0) % MCV (80.0-94.0) fL MCH (27.0-31.0) pg MCHC (33.0-37.0) g/dL RDW (11.5-14.5) % Plt Count (130-400) K/uL MPV (7.2-11.7) fL Neut % (Auto) (50.0-75.0) % Lymph % (Auto) (20.0-40.0) % [place] % (Auto) (0.0-10.0) % Eos % (Auto) (0.0-4.0) % Baso % (Auto) (0.0-2.0) % Neut # (1.8-7.0) K/uL Lymph # (1.0-4.3) K/uL [place] # (0.0-0.8) K/uL Eos # (0.0-0.7) K/uL Baso # (0.0-0.2) K/uL Neutrophils % (Manual) (50-75) % Band Neutrophils % (0-2) % Lymphocytes % (Manual) (20-40) % Monocytes % (Manual) (0-10) % Platelet Estimate (NORMAL) Large Platelets Hypochromasia (manual) Poikilocytosis (manual Anisocytosis (manual) Macrocytosis (manual) Target Cells Puncture Site Rr pCO2 39 (35-45) mm/Hg pO2 157 H (80-100) mm/Hg HCO3 29.5 H (21-28) mmol/L ABG pH 7.49 H (7.35-7.45) ABG Total CO2 30.9 H (22-28) mmol/L ABG O2 Saturation 99.6 H (95-98) % ABG Base Excess 5.9 H (-2.0-3.0) mmol/L ABG Hemoglobin 10.6 L (11.7-17.4) g/dL ABG Carboxyhemoglobin 1.6 H (0.5-1.5) % POC ABG HHb (Measured) 0.4 (0.0-5.0) % ABG Methemoglobin 0.5 (0.0-3.0) % Reji Test Pos A-a O2 Difference 365.0 mm/Hg Respiratory Index 2.3 Hgb O2 Saturation 97.5 (95.0-98.0) % Vent Mode Prvc Mechanical Rate 18 FiO2 80.0 % Tidal Volume 450 PEEP 8 Sodium 139 (132-148) mmol/L Potassium 4.2 (3.6-5.2) mmol/L Chloride 96 L (98-107) mmol/L Carbon Dioxide 28 (22-30) mmol/L Anion Gap 19 (10-20) BUN 62 H (9-20) mg/dL Creatinine 2.9 H (0.8-1.5) mg/dL Est GFR ( Amer) 28 Est GFR (Non-Af Amer) 23 POC Glucose (mg/dL) 96 (65-110) mg/dL Random Glucose 147 H (75-110) mg/dL Calcium 7.8 L (8.6-10.4) mg/dl Phosphorus 7.0 H (2.5-4.5) mg/dL Magnesium 1.8 (1.6-2.3) mg/dL Total Bilirubin 1.4 H (0.2-1.3) mg/dL AST 112 H D (17-59) U/L ALT 166 H D (21-72) U/L Alkaline Phosphatase 96 (38-126) U/L Total Protein 7.2 (6.3-8.3) g/dL Albumin 3.1 L (3.5-5.0) g/dL Globulin 4.1 H (2.2-3.9) gm/dL Albumin/Globulin Ratio 0.8 L (1.0-2.1) Stool Occult Blood (NEGATIVE) Blood Type Blood Type Confirm Antibody Screen 03/06/17 03/06/17 03/06/17 Range/Units 23:38 17:35 17:30 WBC (4.8-10.8) K/uL RBC (4.40-5.90) Mil/uL Hgb (12.0-18.0) g/dL Hct (35.0-51.0) % MCV (80.0-94.0) fL MCH (27.0-31.0) pg MCHC (33.0-37.0) g/dL RDW (11.5-14.5) % Plt Count (130-400) K/uL MPV (7.2-11.7) fL Neut % (Auto) (50.0-75.0) % Lymph % (Auto) (20.0-40.0) % [place] % (Auto) (0.0-10.0) % Eos % (Auto) (0.0-4.0) % Baso % (Auto) (0.0-2.0) % Neut # (1.8-7.0) K/uL Lymph # (1.0-4.3) K/uL [place] # (0.0-0.8) K/uL Eos # (0.0-0.7) K/uL Baso # (0.0-0.2) K/uL Neutrophils % (Manual) (50-75) % Band Neutrophils % (0-2) % Lymphocytes % (Manual) (20-40) % Monocytes % (Manual) (0-10) % Platelet Estimate (NORMAL) Large Platelets Hypochromasia (manual) Poikilocytosis (manual Anisocytosis (manual) Macrocytosis (manual) Target Cells Puncture Site pCO2 (35-45) mm/Hg pO2 (80-100) mm/Hg HCO3 (21-28) mmol/L ABG pH (7.35-7.45) ABG Total CO2 (22-28) mmol/L ABG O2 Saturation (95-98) % ABG Base Excess (-2.0-3.0) mmol/L ABG Hemoglobin (11.7-17.4) g/dL ABG Carboxyhemoglobin (0.5-1.5) % POC ABG HHb (Measured) (0.0-5.0) % ABG Methemoglobin (0.0-3.0) % Reji Test A-a O2 Difference mm/Hg Respiratory Index Hgb O2 Saturation (95.0-98.0) % Vent Mode Mechanical Rate FiO2 % Tidal Volume PEEP Sodium (132-148) mmol/L Potassium (3.6-5.2) mmol/L Chloride (98-107) mmol/L Carbon Dioxide (22-30) mmol/L Anion Gap (10-20) BUN (9-20) mg/dL Creatinine (0.8-1.5) mg/dL Est GFR ( Amer) Est GFR (Non-Af Amer) POC Glucose (mg/dL) 205 H 258 H (65-110) mg/dL Random Glucose (75-110) mg/dL Calcium (8.6-10.4) mg/dl Phosphorus (2.5-4.5) mg/dL Magnesium (1.6-2.3) mg/dL Total Bilirubin (0.2-1.3) mg/dL AST (17-59) U/L ALT (21-72) U/L Alkaline Phosphatase (38-126) U/L Total Protein (6.3-8.3) g/dL Albumin (3.5-5.0) g/dL Globulin (2.2-3.9) gm/dL Albumin/Globulin Ratio (1.0-2.1) Stool Occult Blood (NEGATIVE) Blood Type B POSITIVE Blood Type Confirm Antibody Screen Negative 03/04/17 Range/Units 20:15 WBC (4.8-10.8) K/uL RBC (4.40-5.90) Mil/uL Hgb (12.0-18.0) g/dL Hct (35.0-51.0) % MCV (80.0-94.0) fL MCH (27.0-31.0) pg MCHC (33.0-37.0) g/dL RDW (11.5-14.5) % Plt Count (130-400) K/uL MPV (7.2-11.7) fL Neut % (Auto) (50.0-75.0) % Lymph % (Auto) (20.0-40.0) % [place] % (Auto) (0.0-10.0) % Eos % (Auto) (0.0-4.0) % Baso % (Auto) (0.0-2.0) % Neut # (1.8-7.0) K/uL Lymph # (1.0-4.3) K/uL [place] # (0.0-0.8) K/uL Eos # (0.0-0.7) K/uL Baso # (0.0-0.2) K/uL Neutrophils % (Manual) (50-75) % Band Neutrophils % (0-2) % Lymphocytes % (Manual) (20-40) % Monocytes % (Manual) (0-10) % Platelet Estimate (NORMAL) Large Platelets Hypochromasia (manual) Poikilocytosis (manual Anisocytosis (manual) Macrocytosis (manual) Target Cells Puncture Site pCO2 (35-45) mm/Hg pO2 (80-100) mm/Hg HCO3 (21-28) mmol/L ABG pH (7.35-7.45) ABG Total CO2 (22-28) mmol/L ABG O2 Saturation (95-98) % ABG Base Excess (-2.0-3.0) mmol/L ABG Hemoglobin (11.7-17.4) g/dL ABG Carboxyhemoglobin (0.5-1.5) % POC ABG HHb (Measured) (0.0-5.0) % ABG Methemoglobin (0.0-3.0) % Reji Test A-a O2 Difference mm/Hg Respiratory Index Hgb O2 Saturation (95.0-98.0) % Vent Mode Mechanical Rate FiO2 % Tidal Volume PEEP Sodium (132-148) mmol/L Potassium (3.6-5.2) mmol/L Chloride (98-107) mmol/L Carbon Dioxide (22-30) mmol/L Anion Gap (10-20) BUN (9-20) mg/dL Creatinine (0.8-1.5) mg/dL Est GFR ( Amer) Est GFR (Non-Af Amer) POC Glucose (mg/dL) (65-110) mg/dL Random Glucose (75-110) mg/dL Calcium (8.6-10.4) mg/dl Phosphorus (2.5-4.5) mg/dL Magnesium (1.6-2.3) mg/dL Total Bilirubin (0.2-1.3) mg/dL AST (17-59) U/L ALT (21-72) U/L Alkaline Phosphatase (38-126) U/L Total Protein (6.3-8.3) g/dL Albumin (3.5-5.0) g/dL Globulin (2.2-3.9) gm/dL Albumin/Globulin Ratio (1.0-2.1) Stool Occult Blood (NEGATIVE) Blood Type B POSITIVE Blood Type Confirm B POSITIVE Antibody Screen Negative Laboratory Results - last 24 hr 03/04/17 03/06/17 03/06/17 20:15 17:30 17:35 WBC RBC Hgb Hct MCV MCH MCHC RDW Plt Count MPV Neut % (Auto) Lymph % (Auto) [place] % (Auto) Eos % (Auto) Baso % (Auto) Neut # Lymph # [place] # Eos # Baso # Neutrophils % (Manual) Band Neutrophils % Lymphocytes % (Manual) Monocytes % (Manual) Platelet Estimate Large Platelets Hypochromasia (manual) Poikilocytosis (manual Anisocytosis (manual) Macrocytosis (manual) Target Cells Puncture Site pCO2 pO2 HCO3 ABG pH ABG Total CO2 ABG O2 Saturation ABG Base Excess ABG Hemoglobin ABG Carboxyhemoglobin POC ABG HHb (Measured) ABG Methemoglobin Reji Test A-a O2 Difference Respiratory Index Hgb O2 Saturation Vent Mode Mechanical Rate FiO2 Tidal Volume PEEP Sodium Potassium Chloride Carbon Dioxide Anion Gap BUN Creatinine Est GFR ( Amer) Est GFR (Non-Af Amer) POC Glucose (mg/dL) 258 H Random Glucose Calcium Phosphorus Magnesium Total Bilirubin AST ALT Alkaline Phosphatase Total Protein Albumin Globulin Albumin/Globulin Ratio Stool Occult Blood Blood Type B POSITIVE B POSITIVE Blood Type Confirm B POSITIVE Antibody Screen Negative Negative 03/06/17 03/07/17 03/07/17 23:38 04:57 05:06 WBC RBC Hgb Hct MCV MCH MCHC RDW Plt Count MPV Neut % (Auto) Lymph % (Auto) [place] % (Auto) Eos % (Auto) Baso % (Auto) Neut # Lymph # [place] # Eos # Baso # Neutrophils % (Manual) Band Neutrophils % Lymphocytes % (Manual) Monocytes % (Manual) Platelet Estimate Large Platelets Hypochromasia (manual) Poikilocytosis (manual Anisocytosis (manual) Macrocytosis (manual) Target Cells Puncture Site Rr pCO2 39 pO2 157 H HCO3 29.5 H ABG pH 7.49 H ABG Total CO2 30.9 H ABG O2 Saturation 99.6 H ABG Base Excess 5.9 H ABG Hemoglobin 10.6 L ABG Carboxyhemoglobin 1.6 H POC ABG HHb (Measured) 0.4 ABG Methemoglobin 0.5 Reji Test Pos A-a O2 Difference 365.0 Respiratory Index 2.3 Hgb O2 Saturation 97.5 Vent Mode Prvc Mechanical Rate 18 FiO2 80.0 Tidal Volume 450 PEEP 8 Sodium Potassium Chloride Carbon Dioxide Anion Gap BUN Creatinine Est GFR ( Amer) Est GFR (Non-Af Amer) POC Glucose (mg/dL) 205 H 96 Random Glucose Calcium Phosphorus Magnesium Total Bilirubin AST ALT Alkaline Phosphatase Total Protein Albumin Globulin Albumin/Globulin Ratio Stool Occult Blood Blood Type Blood Type Confirm Antibody Screen 03/07/17 03/07/17 03/07/17 06:17 06:20 06:42 WBC 13.7 H RBC 3.17 L Hgb 9.6 L D Hct 28.2 L MCV 88.8 MCH 30.4 MCHC 34.2 RDW 15.9 H Plt Count 156 MPV 9.3 Neut % (Auto) 88.1 H Lymph % (Auto) 7.4 L [place] % (Auto) 4.1 Eos % (Auto) 0.1 Baso % (Auto) 0.3 Neut # 12.1 H Lymph # 1.0 [place] # 0.6 Eos # 0.0 Baso # 0.0 Neutrophils % (Manual) 84 H Band Neutrophils % 1 Lymphocytes % (Manual) 9 L Monocytes % (Manual) 6 Platelet Estimate Normal Large Platelets Present Hypochromasia (manual) Slight Poikilocytosis (manual Slight Anisocytosis (manual) Slight Macrocytosis (manual) Slight Target Cells Slight Puncture Site pCO2 pO2 HCO3 ABG pH ABG Total CO2 ABG O2 Saturation ABG Base Excess ABG Hemoglobin ABG Carboxyhemoglobin POC ABG HHb (Measured) ABG Methemoglobin Reji Test A-a O2 Difference Respiratory Index Hgb O2 Saturation Vent Mode Mechanical Rate FiO2 Tidal Volume PEEP Sodium 139 Potassium 4.2 Chloride 96 L Carbon Dioxide 28 Anion Gap 19 BUN 62 H Creatinine 2.9 H Est GFR ( Amer) 28 Est GFR (Non-Af Amer) 23 POC Glucose (mg/dL) Random Glucose 147 H Calcium 7.8 L Phosphorus 7.0 H Magnesium 1.8 Total Bilirubin 1.4 H AST 112 H D ALT 166 H D Alkaline Phosphatase 96 Total Protein 7.2 Albumin 3.1 L Globulin 4.1 H Albumin/Globulin Ratio 0.8 L Stool Occult Blood Negative Blood Type Blood Type Confirm Antibody Screen 03/07/17 11:39 WBC RBC Hgb Hct MCV MCH MCHC RDW Plt Count MPV Neut % (Auto) Lymph % (Auto) [place] % (Auto) Eos % (Auto) Baso % (Auto) Neut # Lymph # [place] # Eos # Baso # Neutrophils % (Manual) Band Neutrophils % Lymphocytes % (Manual) Monocytes % (Manual) Platelet Estimate Large Platelets Hypochromasia (manual) Poikilocytosis (manual Anisocytosis (manual) Macrocytosis (manual) Target Cells Puncture Site pCO2 pO2 HCO3 ABG pH ABG Total CO2 ABG O2 Saturation ABG Base Excess ABG Hemoglobin ABG Carboxyhemoglobin POC ABG HHb (Measured) ABG Methemoglobin Reji Test A-a O2 Difference Respiratory Index Hgb O2 Saturation Vent Mode Mechanical Rate FiO2 Tidal Volume PEEP Sodium Potassium Chloride Carbon Dioxide Anion Gap BUN Creatinine Est GFR ( Amer) Est GFR (Non-Af Amer) POC Glucose (mg/dL) 183 H Random Glucose Calcium Phosphorus Magnesium Total Bilirubin AST ALT Alkaline Phosphatase Total Protein Albumin Globulin Albumin/Globulin Ratio Stool Occult Blood Blood Type Blood Type Confirm Antibody Screen Fingerstick Blood Sugar Results: 183 Review of Systems - Review of Systems Systems not reviewed;Unavailable: Intubated Assessment/Plan - Assessment and Plan (Free Text) Assessment: 52 y/o M with pmhx of HTN, DM II, kidney disease, who was brought to the ED after he collapsed in ED at home and was found in asystole. Patient given 3 doses of epi and CPR for 15 minutes then ROSC. Patient intubated in the field. Patient went into cardiac arrest twice more in the ICU. Neuro: Intubated, altered mental status Medication and Management: * Ativan 1 mg q2h PRN seizure activitiy * Keppra 500 mg q12h * Dr. Rascon consulted, help appreciated Imaging: Head CT (03/04): chronic microvascular ischemic changes, no acute intracranial hemorrhage EEG (03/05/17): periodic paroxysmal activities lasting about 2-3 seconds with intermittent burst suppression suggestive of status epileptiform activities. Head CT (03/06/17): nonspecific white matter changes f/u EEG (03/07/17) Pulm: Respiratory distress secondary to cardiac arrest Medication and Management * Patient intubated * Lasix * gipson to measure urine output * Propofol 5mcg/kg/min Imaging: Chest X-ray (03/07/17): Minimal left pleural effusion, CHF improving Cardio: s/p cardiac arrest Medication and management: * Dopamine drip, titrate PRN * Levophed drip stopped on 03/07 * Dr. Tate consulted, help appreciated * Echo (03/04/17): LVEF:42, mild to moderate LV systolic dysfunction. Normal chamber size. Trace MR and TR. Trace pericardial effusion. Pleural effusion. Heme: anemia Medication and management: * 03/06/17: HgB/Hct: 7/20.6, transfused 2 u PRBCs * 03/07/17: HgB/ Hct: 9.6/28.2 Endo: DM II Medication and management: * Regular ISS * accucheck q6h * HgA1C: 9.4 Renal: acute vs chronic kidney disease Medication and management: * Lasix 40mg once daily (decreased from BID on 03/06) * f/u recommendation as per Dr. Charles * K+ 7.0 on 03/05, 1 amp Ca Gluconate, 1 amp bicarb, duonebs, solumedrol 40 BID given * K+ repeat 6.6, repeat of 1 amp Ca Gluconate, 1 amp bicarb, duonebs, and Kayexalate once at 6pm and once at 10pm * 03/06: K+: 4.5 * 03/07: K+ stable, BUN/Cr: 62/2.9 MSK: right foot wound secondary to first metatarsal amputation Medication and management: * Wound care ID: Medication and management: * Vanco * Zosyn * MRSA in nose * Urine culture (-) * blood culture (-) * Dr. Shore consulted, help appreciated Prophylaxis: DVT: Heparin 5,000 u sc q8h GI: Protonix 40 mg IVP daily Started glucerna feeds at 20ml/hr <José Miguel Lugo S - Last Filed: 03/07/17 17:37> CCU Objective - Vital Signs / Intake & Output Vital Signs (Last 4 hours): Vital Signs Temp Pulse Resp BP Pulse Ox 03/07/17 17:08 83 102/72 99 03/07/17 17:00 99 H 14 100 03/07/17 16:37 150 H 21 90/68 L 98 03/07/17 16:30 136 H 23 100 03/07/17 16:07 99 H 14 111/65 100 03/07/17 16:00 100.3 F H 111 H 21 100 03/07/17 15:37 101 H 17 107/69 100 03/07/17 15:30 97 H 16 100 03/07/17 15:13 102 H 19 121/69 99 03/07/17 15:08 105 H 21 99 03/07/17 15:00 102 H 16 99 03/07/17 14:37 98 H 18 108/64 100 03/07/17 14:30 95 H 18 100 03/07/17 14:07 95 H 17 104/62 100 03/07/17 14:00 100 H 18 100 03/07/17 13:37 116 H 21 114/72 100 Intake and Output (Last 8hrs): Intake & Output 03/07/17 03/07/17 03/07/17 06:59 14:59 22:59 Intake Total 799.0 648.4 199.7 Output Total 950 1440 350 Balance -151.0 -791.6 -150.3 Weight 179 lb 0.246 oz Intake: IV 10 100 70 Intake, IV Amount 214.0 458.4 109.7 Right Antecubital 150 400 100 Right Distal Port Femoral 5.6 Right Medial Port Femoral 58.4 58.4 9.7 Tube Feeding 40 20 Blood Product 575 Red Blood Cells Cpd As1 325 Lr Unit [id number] Other 50 Output: Urine 950 1440 350 Urethral ([place]) 950 1440 350 Other: # Bowel Movements 1 0 0 - Medications Active Medications: Active Medications Generic Name Dose Route Start Last Admin Trade Name Freq PRN Reason Stop Dose Admin Acetaminophen 650 mg 03/05/17 22:55 03/05/17 23:05 Tylenol 650mg/20.3ml Solution Ud PO 650 mg Q4 PRN Administration temp >101 Albuterol/Ipratropium 3 ml 03/05/17 14:00 03/07/17 14:08 Duoneb 3 Mg/0.5 Mg (3 Ml) Ud INH 3 ml RQ6 TENA Administration Artificial Tears 0 gm 03/06/17 10:04 03/06/17 14:23 Lacri-Lube OS 3.5 gm Q4H PRN Administration Other Furosemide 40 mg 03/07/17 10:00 03/07/17 10:13 Lasix IVP 40 mg DAILY TENA Administration Heparin Sodium (Porcine) 5,000 units 03/05/17 06:00 03/07/17 13:34 Heparin SC 5,000 units Q8 TENA Administration Piperacillin Sod/Tazobactam Sod 2.25 gm in 50 mls @ 100 mls/hr 03/04/17 21:30 03/07/17 14:32 Zosyn 2.25 Gm Iv Premix IVPB 100 mls/hr Q6H TENA Administration Vancomycin HCl/Dextrose 500 mg in 100 mls @ 166.6 mls/hr 03/04/17 22:30 03/07 10:14 Vancocin IVPB 03/09/17 22:31 166.6 mls/hr Q12H TENA Administration Norepinephrine Bitartrate 8 mg 258 mls @ 7.74 mls/hr 03/05/17 01:00 03/07/17 01:00 / Sodium Chloride IV 0 mcg/min .Q24H PRN 0 mls/hr TITRATE PER MD ORDER Titration Protocol 4 MCG/MIN Levetiracetam 500 mg/ Sodium 105 mls @ 420 mls/hr 03/05/17 02:45 03/07/17 14: 29 Chloride IVPB 420 mls/hr Q12H TENA Administration Azithromycin 500 mg/ Sodium 250 mls @ 250 mls/hr 03/05/17 13:00 03/07/17 10: 14 Chloride IVPB 250 mls/hr DAILY TENA Administration Propofol 1,000 mg in 100 mls @ 2.436 mls/hr 03/05/17 21:00 03/07/17 15:18 Diprivan IV 19.9 mcg/kg/min .Q24H PRN 9.7 mls/hr TITRATE PER MD ORDER Titration Protocol 5 MCG/KG/MIN Insulin Human Regular 0 unit 03/05/17 00:45 03/07/17 12:12 Novolin R SC 2 unit Q6H TENA Administration Protocol Lorazepam 1 mg 03/05/17 00:57 03/05/17 20:20 Ativan IVP 1 mg Q2H PRN Administration Seizure activity Pantoprazole Sodium 40 mg 03/05/17 10:00 03/07/17 10:13 Protonix Inj IVP 40 mg DAILY TENA Administration - Patient Studies Lab Studies: Microbiology Studies 03/04/17 20:30 Blood Culture - Preliminary Blood NO GROWTH AFTER 48 HOURS 03/04/17 21:00 Blood Culture - Preliminary Blood NO GROWTH AFTER 48 HOURS Lab Studies 03/07/17 03/07/17 03/07/17 Range/Units 11:39 06:42 06:20 WBC 13.7 H (4.8-10.8) K/uL RBC 3.17 L (4.40-5.90) Mil/uL Hgb 9.6 L D (12.0-18.0) g/dL Hct 28.2 L (35.0-51.0) % MCV 88.8 (80.0-94.0) fL MCH 30.4 (27.0-31.0) pg MCHC 34.2 (33.0-37.0) g/dL RDW 15.9 H (11.5-14.5) % Plt Count 156 (130-400) K/uL MPV 9.3 (7.2-11.7) fL Neut % (Auto) 88.1 H (50.0-75.0) % Lymph % (Auto) 7.4 L (20.0-40.0) % [place] % (Auto) 4.1 (0.0-10.0) % Eos % (Auto) 0.1 (0.0-4.0) % Baso % (Auto) 0.3 (0.0-2.0) % Neut # 12.1 H (1.8-7.0) K/uL Lymph # 1.0 (1.0-4.3) K/uL [place] # 0.6 (0.0-0.8) K/uL Eos # 0.0 (0.0-0.7) K/uL Baso # 0.0 (0.0-0.2) K/uL Neutrophils % (Manual) 84 H (50-75) % Band Neutrophils % 1 (0-2) % Lymphocytes % (Manual) 9 L (20-40) % Monocytes % (Manual) 6 (0-10) % Platelet Estimate Normal (NORMAL) Large Platelets Present Hypochromasia (manual) Slight Poikilocytosis (manual Slight Anisocytosis (manual) Slight Macrocytosis (manual) Slight Target Cells Slight Puncture Site pCO2 (35-45) mm/Hg pO2 (80-100) mm/Hg HCO3 (21-28) mmol/L ABG pH (7.35-7.45) ABG Total CO2 (22-28) mmol/L ABG O2 Saturation (95-98) % ABG Base Excess (-2.0-3.0) mmol/L ABG Hemoglobin (11.7-17.4) g/dL ABG Carboxyhemoglobin (0.5-1.5) % POC ABG HHb (Measured) (0.0-5.0) % ABG Methemoglobin (0.0-3.0) % Reji Test A-a O2 Difference mm/Hg Respiratory Index Hgb O2 Saturation (95.0-98.0) % Vent Mode Mechanical Rate FiO2 % Tidal Volume PEEP Sodium (132-148) mmol/L Potassium (3.6-5.2) mmol/L Chloride (98-107) mmol/L Carbon Dioxide (22-30) mmol/L Anion Gap (10-20) BUN (9-20) mg/dL Creatinine (0.8-1.5) mg/dL Est GFR ( Amer) Est GFR (Non-Af Amer) POC Glucose (mg/dL) 183 H (65-110) mg/dL Random Glucose (75-110) mg/dL Calcium (8.6-10.4) mg/dl Phosphorus (2.5-4.5) mg/dL Magnesium (1.6-2.3) mg/dL Total Bilirubin (0.2-1.3) mg/dL AST (17-59) U/L ALT (21-72) U/L Alkaline Phosphatase (38-126) U/L Total Protein (6.3-8.3) g/dL Albumin (3.5-5.0) g/dL Globulin (2.2-3.9) gm/dL Albumin/Globulin Ratio (1.0-2.1) Stool Occult Blood Negative (NEGATIVE) Blood Type Antibody Screen 03/07/17 03/07/17 03/07/17 Range/Units 06:17 05:06 04:57 WBC (4.8-10.8) K/uL RBC (4.40-5.90) Mil/uL Hgb (12.0-18.0) g/dL Hct (35.0-51.0) % MCV (80.0-94.0) fL MCH (27.0-31.0) pg MCHC (33.0-37.0) g/dL RDW (11.5-14.5) % Plt Count (130-400) K/uL MPV (7.2-11.7) fL Neut % (Auto) (50.0-75.0) % Lymph % (Auto) (20.0-40.0) % [place] % (Auto) (0.0-10.0) % Eos % (Auto) (0.0-4.0) % Baso % (Auto) (0.0-2.0) % Neut # (1.8-7.0) K/uL Lymph # (1.0-4.3) K/uL [place] # (0.0-0.8) K/uL Eos # (0.0-0.7) K/uL Baso # (0.0-0.2) K/uL Neutrophils % (Manual) (50-75) % Band Neutrophils % (0-2) % Lymphocytes % (Manual) (20-40) % Monocytes % (Manual) (0-10) % Platelet Estimate (NORMAL) Large Platelets Hypochromasia (manual) Poikilocytosis (manual Anisocytosis (manual) Macrocytosis (manual) Target Cells Puncture Site Rr pCO2 39 (35-45) mm/Hg pO2 157 H (80-100) mm/Hg HCO3 29.5 H (21-28) mmol/L ABG pH 7.49 H (7.35-7.45) ABG Total CO2 30.9 H (22-28) mmol/L ABG O2 Saturation 99.6 H (95-98) % ABG Base Excess 5.9 H (-2.0-3.0) mmol/L ABG Hemoglobin 10.6 L (11.7-17.4) g/dL ABG Carboxyhemoglobin 1.6 H (0.5-1.5) % POC ABG HHb (Measured) 0.4 (0.0-5.0) % ABG Methemoglobin 0.5 (0.0-3.0) % Reji Test Pos A-a O2 Difference 365.0 mm/Hg Respiratory Index 2.3 Hgb O2 Saturation 97.5 (95.0-98.0) % Vent Mode Prvc Mechanical Rate 18 FiO2 80.0 % Tidal Volume 450 PEEP 8 Sodium 139 (132-148) mmol/L Potassium 4.2 (3.6-5.2) mmol/L Chloride 96 L (98-107) mmol/L Carbon Dioxide 28 (22-30) mmol/L Anion Gap 19 (10-20) BUN 62 H (9-20) mg/dL Creatinine 2.9 H (0.8-1.5) mg/dL Est GFR ( Amer) 28 Est GFR (Non-Af Amer) 23 POC Glucose (mg/dL) 96 (65-110) mg/dL Random Glucose 147 H (75-110) mg/dL Calcium 7.8 L (8.6-10.4) mg/dl Phosphorus 7.0 H (2.5-4.5) mg/dL Magnesium 1.8 (1.6-2.3) mg/dL Total Bilirubin 1.4 H (0.2-1.3) mg/dL AST 112 H D (17-59) U/L ALT 166 H D (21-72) U/L Alkaline Phosphatase 96 (38-126) U/L Total Protein 7.2 (6.3-8.3) g/dL Albumin 3.1 L (3.5-5.0) g/dL Globulin 4.1 H (2.2-3.9) gm/dL Albumin/Globulin Ratio 0.8 L (1.0-2.1) Stool Occult Blood (NEGATIVE) Blood Type Antibody Screen 03/06/17 03/06/17 03/06/17 Range/Units 23:38 17:35 17:30 WBC (4.8-10.8) K/uL RBC (4.40-5.90) Mil/uL Hgb (12.0-18.0) g/dL Hct (35.0-51.0) % MCV (80.0-94.0) fL MCH (27.0-31.0) pg MCHC (33.0-37.0) g/dL RDW (11.5-14.5) % Plt Count (130-400) K/uL MPV (7.2-11.7) fL Neut % (Auto) (50.0-75.0) % Lymph % (Auto) (20.0-40.0) % [place] % (Auto) (0.0-10.0) % Eos % (Auto) (0.0-4.0) % Baso % (Auto) (0.0-2.0) % Neut # (1.8-7.0) K/uL Lymph # (1.0-4.3) K/uL [place] # (0.0-0.8) K/uL Eos # (0.0-0.7) K/uL Baso # (0.0-0.2) K/uL Neutrophils % (Manual) (50-75) % Band Neutrophils % (0-2) % Lymphocytes % (Manual) (20-40) % Monocytes % (Manual) (0-10) % Platelet Estimate (NORMAL) Large Platelets Hypochromasia (manual) Poikilocytosis (manual Anisocytosis (manual) Macrocytosis (manual) Target Cells Puncture Site pCO2 (35-45) mm/Hg pO2 (80-100) mm/Hg HCO3 (21-28) mmol/L ABG pH (7.35-7.45) ABG Total CO2 (22-28) mmol/L ABG O2 Saturation (95-98) % ABG Base Excess (-2.0-3.0) mmol/L ABG Hemoglobin (11.7-17.4) g/dL ABG Carboxyhemoglobin (0.5-1.5) % POC ABG HHb (Measured) (0.0-5.0) % ABG Methemoglobin (0.0-3.0) % Reji Test A-a O2 Difference mm/Hg Respiratory Index Hgb O2 Saturation (95.0-98.0) % Vent Mode Mechanical Rate FiO2 % Tidal Volume PEEP Sodium (132-148) mmol/L Potassium (3.6-5.2) mmol/L Chloride (98-107) mmol/L Carbon Dioxide (22-30) mmol/L Anion Gap (10-20) BUN (9-20) mg/dL Creatinine (0.8-1.5) mg/dL Est GFR ( Amer) Est GFR (Non-Af Amer) POC Glucose (mg/dL) 205 H 258 H (65-110) mg/dL Random Glucose (75-110) mg/dL Calcium (8.6-10.4) mg/dl Phosphorus (2.5-4.5) mg/dL Magnesium (1.6-2.3) mg/dL Total Bilirubin (0.2-1.3) mg/dL AST (17-59) U/L ALT (21-72) U/L Alkaline Phosphatase (38-126) U/L Total Protein (6.3-8.3) g/dL Albumin (3.5-5.0) g/dL Globulin (2.2-3.9) gm/dL Albumin/Globulin Ratio (1.0-2.1) Stool Occult Blood (NEGATIVE) Blood Type B POSITIVE Antibody Screen Negative Laboratory Results - last 24 hr 03/06/17 03/06/17 03/06/17 17:30 17:35 23:38 WBC RBC Hgb Hct MCV MCH MCHC RDW Plt Count MPV Neut % (Auto) Lymph % (Auto) [place] % (Auto) Eos % (Auto) Baso % (Auto) Neut # Lymph # [place] # Eos # Baso # Neutrophils % (Manual) Band Neutrophils % Lymphocytes % (Manual) Monocytes % (Manual) Platelet Estimate Large Platelets Hypochromasia (manual) Poikilocytosis (manual Anisocytosis (manual) Macrocytosis (manual) Target Cells Puncture Site pCO2 pO2 HCO3 ABG pH ABG Total CO2 ABG O2 Saturation ABG Base Excess ABG Hemoglobin ABG Carboxyhemoglobin POC ABG HHb (Measured) ABG Methemoglobin Reji Test A-a O2 Difference Respiratory Index Hgb O2 Saturation Vent Mode Mechanical Rate FiO2 Tidal Volume PEEP Sodium Potassium Chloride Carbon Dioxide Anion Gap BUN Creatinine Est GFR ( Amer) Est GFR (Non-Af Amer) POC Glucose (mg/dL) 258 H 205 H Random Glucose Calcium Phosphorus Magnesium Total Bilirubin AST ALT Alkaline Phosphatase Total Protein Albumin Globulin Albumin/Globulin Ratio Stool Occult Blood Blood Type B POSITIVE Antibody Screen Negative 03/07/17 03/07/17 03/07/17 04:57 05:06 06:17 WBC RBC Hgb Hct MCV MCH MCHC RDW Plt Count MPV Neut % (Auto) Lymph % (Auto) [place] % (Auto) Eos % (Auto) Baso % (Auto) Neut # Lymph # [place] # Eos # Baso # Neutrophils % (Manual) Band Neutrophils % Lymphocytes % (Manual) Monocytes % (Manual) Platelet Estimate Large Platelets Hypochromasia (manual) Poikilocytosis (manual Anisocytosis (manual) Macrocytosis (manual) Target Cells Puncture Site Rr pCO2 39 pO2 157 H HCO3 29.5 H ABG pH 7.49 H ABG Total CO2 30.9 H ABG O2 Saturation 99.6 H ABG Base Excess 5.9 H ABG Hemoglobin 10.6 L ABG Carboxyhemoglobin 1.6 H POC ABG HHb (Measured) 0.4 ABG Methemoglobin 0.5 Reji Test Pos A-a O2 Difference 365.0 Respiratory Index 2.3 Hgb O2 Saturation 97.5 Vent Mode Prvc Mechanical Rate 18 FiO2 80.0 Tidal Volume 450 PEEP 8 Sodium 139 Potassium 4.2 Chloride 96 L Carbon Dioxide 28 Anion Gap 19 BUN 62 H Creatinine 2.9 H Est GFR ( Amer) 28 Est GFR (Non-Af Amer) 23 POC Glucose (mg/dL) 96 Random Glucose 147 H Calcium 7.8 L Phosphorus 7.0 H Magnesium 1.8 Total Bilirubin 1.4 H AST 112 H D ALT 166 H D Alkaline Phosphatase 96 Total Protein 7.2 Albumin 3.1 L Globulin 4.1 H Albumin/Globulin Ratio 0.8 L Stool Occult Blood Blood Type Antibody Screen 03/07/17 03/07/17 03/07/17 06:20 06:42 11:39 WBC 13.7 H RBC 3.17 L Hgb 9.6 L D Hct 28.2 L MCV 88.8 MCH 30.4 MCHC 34.2 RDW 15.9 H Plt Count 156 MPV 9.3 Neut % (Auto) 88.1 H Lymph % (Auto) 7.4 L [place] % (Auto) 4.1 Eos % (Auto) 0.1 Baso % (Auto) 0.3 Neut # 12.1 H Lymph # 1.0 [place] # 0.6 Eos # 0.0 Baso # 0.0 Neutrophils % (Manual) 84 H Band Neutrophils % 1 Lymphocytes % (Manual) 9 L Monocytes % (Manual) 6 Platelet Estimate Normal Large Platelets Present Hypochromasia (manual) Slight Poikilocytosis (manual Slight Anisocytosis (manual) Slight Macrocytosis (manual) Slight Target Cells Slight Puncture Site pCO2 pO2 HCO3 ABG pH ABG Total CO2 ABG O2 Saturation ABG Base Excess ABG Hemoglobin ABG Carboxyhemoglobin POC ABG HHb (Measured) ABG Methemoglobin Reji Test A-a O2 Difference Respiratory Index Hgb O2 Saturation Vent Mode Mechanical Rate FiO2 Tidal Volume PEEP Sodium Potassium Chloride Carbon Dioxide Anion Gap BUN Creatinine Est GFR ( Amer) Est GFR (Non-Af Amer) POC Glucose (mg/dL) 183 H Random Glucose Calcium Phosphorus Magnesium Total Bilirubin AST ALT Alkaline Phosphatase Total Protein Albumin Globulin Albumin/Globulin Ratio Stool Occult Blood Negative Blood Type Antibody Screen Attending/Attestation - Attestation I have personally seen and examined this patient.: Yes I have fully participated in the care of the patient.: Yes I have reviewed all pertinent clinical information: Yes Notes (Text): 03/07/17 17:37 Patient seen and examined. Case discussed with house staff in the morning rounds. Remained intubated on ventilatory support Status post transfusion of 2 units packed RBCs Patient seen by nephrology Neurology workup Echocardiogram report noted Case discussed with family at length Continue present treatment
--- NOTE | 2017-03-07 17:22 | CP.PCM.PN ---
Subjective - Date & Time of Evaluation Date of Evaluation: 03/07/17 Time of Evaluation: 07:00 - Subjective Subjective: resp failure improving afeb wbc trending down Intubated Objective - Vital Signs/Intake and Output Vital Signs (last 24 hours): Temp Pulse Resp BP Pulse Ox 100.3 F H 99 H 14 111/65 100 03/07/17 16:00 03/07/17 16:07 03/07/17 16:07 03/07/17 16:07 03/07/17 16:07 Intake and Output: 03/07/17 03/07/17 06:59 18:59 Intake Total 1750.8 848.1 Output Total 1850 1790 Balance -99.2 -941.9 - Medications Medications: Current Medications Acetaminophen (Tylenol 650mg/20.3ml Solution Ud) 650 mg PO Q4 PRN PRN Reason: temp >101 Last Admin: 03/05/17 23:05 Dose: 650 mg Albuterol/Ipratropium (Duoneb 3 Mg/0.5 Mg (3 Ml) Ud) 3 ml INH RQ6 TENA Last Admin: 03/07/17 14:08 Dose: 3 ml Artificial Tears (Lacri-Lube) 0 gm OS Q4H PRN PRN Reason: Other Last Admin: 03/06/17 14:23 Dose: 3.5 gm Furosemide (Lasix) 40 mg IVP DAILY [facility] Last Admin: 03/07/17 10:13 Dose: 40 mg Heparin Sodium (Porcine) (Heparin) 5,000 units SC Q8 TENA Last Admin: 03/07/17 13:34 Dose: 5,000 units Piperacillin Sod/Tazobactam Sod (Zosyn 2.25 Gm Iv Premix) 2.25 gm in 50 mls @ 100 mls/hr IVPB Q6H TENA Last Admin: 03/07/17 14:32 Dose: 100 mls/hr Vancomycin HCl/Dextrose (Vancocin) 500 mg in 100 mls @ 166.6 mls/hr IVPB Q12H TENA Stop: 03/09/17 22:31 Last Admin: 03/07/17 10:14 Dose: 166.6 mls/hr Norepinephrine Bitartrate 8 mg (/ Sodium Chloride) 258 mls @ 7.74 mls/hr IV .Q24H PRN; Protocol; 4 MCG/MIN PRN Reason: TITRATE PER MD ORDER Last Titration: 03/07/17 01:00 Dose: 0 mcg/min, 0 mls/hr Levetiracetam 500 mg/ Sodium (Chloride) 105 mls @ 420 mls/hr IVPB Q12H TENA Last Admin: 03/07/17 14:29 Dose: 420 mls/hr Azithromycin 500 mg/ Sodium (Chloride) 250 mls @ 250 mls/hr IVPB DAILY TENA Last Admin: 03/07/17 10:14 Dose: 250 mls/hr Propofol (Diprivan) 1,000 mg in 100 mls @ 2.436 mls/hr IV .Q24H PRN; Protocol; 5 MCG/KG/MIN PRN Reason: TITRATE PER MD ORDER Last Titration: 03/07/17 15:18 Dose: 19.9 mcg/kg/min, 9.7 mls/hr Insulin Human Regular (Novolin R) 0 unit SC Q6H TENA PRN Reason: Protocol Last Admin: 03/07/17 12:12 Dose: 2 unit Lorazepam (Ativan) 1 mg IVP Q2H PRN PRN Reason: Seizure activity Last Admin: 03/05/17 20:20 Dose: 1 mg Pantoprazole Sodium (Protonix Inj) 40 mg IVP DAILY TENA Last Admin: 03/07/17 10:13 Dose: 40 mg - Labs Labs: 03/07/17 06:20 03/07/17 06:17 PT 15.6 SECONDS (9.7-12.2) H 03/04/17 19:55 INR 1.4 03/04/17 19:55 APTT 31 SECONDS (21-34) 03/04/17 19:55 - Head Exam Head Exam: ATRAUMATIC, NORMOCEPHALIC - Eye Exam Eye Exam: EOMI, PERRL. absent: Scleral icterus - ENT Exam ENT Exam: Mucous Membranes Dry - Neck Exam Neck Exam: absent: Lymphadenopathy - Respiratory Exam Respiratory Exam: Decreased Breath Sounds, Rales - Cardiovascular Exam Cardiovascular Exam: REGULAR RHYTHM, +S1, +S2 - GI/Abdominal Exam GI & Abdominal Exam: Distended, Soft - Rectal Exam Rectal Exam: Deferred - Exam Exam: NORMAL INSPECTION - Back Exam Back Exam: absent: CVA tenderness (L), CVA tenderness (R) - Neurological Exam Neurological Exam: Altered - Psychiatric Exam Psychiatric exam: Depressed - Skin Skin Exam: Dry Assessment and Plan (1) Cardiac arrest Status: Acute (2) Open wound of right foot with complication Status: Acute (3) Respiratory failure Status: Acute
--- NOTE | 2017-03-07 20:16 | CP.PCM.PN ---
Subjective - Date & Time of Evaluation Date of Evaluation: 03/07/17 Time of Evaluation: 13:00 - Subjective Subjective: clinically same Objective - Vital Signs/Intake and Output Vital Signs (last 24 hours): Temp Pulse Resp BP Pulse Ox 100.3 F H 102 H 16 111/71 98 03/07/17 16:00 03/07/17 19:08 03/07/17 19:08 03/07/17 19:08 03/07/17 19:08 Intake and Output: 03/07/17 03/08/17 18:59 06:59 Intake Total 1017.2 59.4 Output Total 2205 300 Balance -1187.8 -240.6 - Medications Medications: Current Medications Acetaminophen (Tylenol 650mg/20.3ml Solution Ud) 650 mg PO Q4 PRN PRN Reason: temp >101 Last Admin: 03/05/17 23:05 Dose: 650 mg Albuterol/Ipratropium (Duoneb 3 Mg/0.5 Mg (3 Ml) Ud) 3 ml INH RQ6 TENA Last Admin: 03/07/17 19:29 Dose: 3 ml Artificial Tears (Lacri-Lube) 0 gm OS Q4H PRN PRN Reason: Other Last Admin: 03/06/17 14:23 Dose: 3.5 gm Furosemide (Lasix) 40 mg IVP DAILY TENA Last Admin: 03/07/17 10:13 Dose: 40 mg Heparin Sodium (Porcine) (Heparin) 5,000 units SC Q8 TENA Last Admin: 03/07/17 13:34 Dose: 5,000 units Piperacillin Sod/Tazobactam Sod (Zosyn 2.25 Gm Iv Premix) 2.25 gm in 50 mls @ 100 mls/hr IVPB Q6H TENA Last Admin: 03/07/17 14:32 Dose: 100 mls/hr Vancomycin HCl/Dextrose (Vancocin) 500 mg in 100 mls @ 166.6 mls/hr IVPB Q12H TENA Stop: 03/09/17 22:31 Last Admin: 03/07/17 10:14 Dose: 166.6 mls/hr Norepinephrine Bitartrate 8 mg (/ Sodium Chloride) 258 mls @ 7.74 mls/hr IV .Q24H PRN; Protocol; 4 MCG/MIN PRN Reason: TITRATE PER MD ORDER Last Titration: 03/07/17 01:00 Dose: 0 mcg/min, 0 mls/hr Levetiracetam 500 mg/ Sodium (Chloride) 105 mls @ 420 mls/hr IVPB Q12H TENA Last Admin: 03/07/17 14:29 Dose: 420 mls/hr Azithromycin 500 mg/ Sodium (Chloride) 250 mls @ 250 mls/hr IVPB DAILY TENA Last Admin: 03/07/17 10:14 Dose: 250 mls/hr Propofol (Diprivan) 1,000 mg in 100 mls @ 2.436 mls/hr IV .Q24H PRN; Protocol; 5 MCG/KG/MIN PRN Reason: TITRATE PER MD ORDER Last Titration: 03/07/17 15:18 Dose: 19.9 mcg/kg/min, 9.7 mls/hr Insulin Human Regular (Novolin R) 0 unit SC Q6H TENA PRN Reason: Protocol Last Admin: 03/07/17 18:01 Dose: 2 unit Lorazepam (Ativan) 1 mg IVP Q2H PRN PRN Reason: Seizure activity Last Admin: 03/05/17 20:20 Dose: 1 mg Pantoprazole Sodium (Protonix Inj) 40 mg IVP DAILY TENA Last Admin: 03/07/17 10:13 Dose: 40 mg - Labs Labs: 03/07/17 06:20 03/07/17 06:17 PT 15.6 SECONDS (9.7-12.2) H 03/04/17 19:55 INR 1.4 03/04/17 19:55 APTT 31 SECONDS (21-34) 03/04/17 19:55 - Constitutional Appears: Well - Head Exam Head Exam: ATRAUMATIC, NORMAL INSPECTION, NORMOCEPHALIC - Eye Exam Eye Exam: EOMI, Normal appearance, PERRL Pupil Exam: NORMAL ACCOMODATION, PERRL - ENT Exam ENT Exam: Mucous Membranes Moist, Normal Exam - Neck Exam Neck Exam: Full ROM, Normal Inspection. absent: Lymphadenopathy - Respiratory Exam Respiratory Exam: Decreased Breath Sounds - Cardiovascular Exam Cardiovascular Exam: REGULAR RHYTHM, +S1, +S2 - GI/Abdominal Exam GI & Abdominal Exam: Soft, Diminished Bowel Sounds - Rectal Exam Rectal Exam: Deferred Assessment and Plan (1) Anemia Status: Acute (2) Anoxic encephalopathy Status: Acute (3) Anoxic encephalopathy Status: Acute (4) CHF (congestive heart failure) Status: Acute (5) Cardiac arrest Status: Acute (6) Coagulopathy Status: Acute (7) Open wound of right foot with complication Status: Acute (8) Respiratory failure Status: Acute (9) SAUNDRA (acute kidney injury) Status: Resolved - Assessment and Plan (Free Text) Plan: Patient examined. ID consult done. All cultures negative. Check vancomycin levels. Patient is afebrile. Patient is intubated. Continue piperacillin tazobactam, vancomycin, pressure is in norepinephrine, azithromycin, supportive care.
[2017-03-07] MEDS: Acetaminophen 650mg/20.3ml solution UD PO PRN (20:30)
--- NOTE | 2017-03-07 22:10 | CP.PCM.CON ---
History of Present Illness - History of Present Illness History of Present Illness: 52 year old male with a history of recent foot surgery, presented with shortness of breath s/p cardiac arrest, currently intubated, with progressive anemia. The patient is vented and I am unable to obtain further history from the patient. Review of his medical records shows he was admitted with a hgb of 6.9 and required PRBC transfusion. He has no overt evidence of bleeding and bruising. Past medical, surgical, family, social history cannot be obtained from the patient. Allergies: Unobtainable Review of systems cannot be obtained. Past Patient History - Past Medical History & Family History Past Medical History?: Yes - Past Social History Smoking Status: UNKNOWN Chewing Tobacco Use: No Cigar Use: No Alcohol: None Drugs: Denies Home Situation {Lives}: Alone - CARDIAC Hx Hypertension: Yes - PULMONARY Hx Respiratory Disorders: No - NEUROLOGICAL Hx Neurological Disorder: No - HEENT Hx HEENT Problems: No - RENAL Hx Chronic Kidney Disease: Yes Hx Renal Failure: Yes - ENDOCRINE/METABOLIC Hx Endocrine Disorders: Yes Hx Diabetes Mellitus Type 2: Yes - INTEGUMENTARY Hx Dermatological Problems: Yes - MUSCULOSKELETAL/RHEUMATOLOGICAL Hx Musculoskeletal Disorders: No - GASTROINTESTINAL Hx Gastrointestinal Disorders: No - GENITOURINARY/GYNECOLOGICAL Hx Genitourinary Disorders: No - PSYCHIATRIC Hx Substance Use: No - SURGICAL HISTORY Other/Comment: Great toe left foot amputated - ANESTHESIA Hx Anesthesia: Yes (UNABLE TO OBTAIN) Hx Anesthesia Reactions: No Meds Allergies/Adverse Reactions: Allergies Allergy/AdvReac Type Severity Reaction Status Date / Time Unobtainable Allergy Verified 03/04/17 20:17 - Medications Medications: Current Medications Acetaminophen (Tylenol 650mg/20.3ml Solution Ud) 650 mg PO Q4 PRN PRN Reason: temp >101 Last Admin: 03/07/17 20:30 Dose: 650 mg Albuterol/Ipratropium (Duoneb 3 Mg/0.5 Mg (3 Ml) Ud) 3 ml INH RQ6 TENA Last Admin: 03/07/17 19:29 Dose: 3 ml Artificial Tears (Lacri-Lube) 0 gm OS Q4H PRN PRN Reason: Other Last Admin: 03/06/17 14:23 Dose: 3.5 gm Furosemide (Lasix) 40 mg IVP DAILY TENA Last Admin: 03/07/17 10:13 Dose: 40 mg Heparin Sodium (Porcine) (Heparin) 5,000 units SC Q8 [facility] Last Admin: 03/07/17 21:05 Dose: 5,000 units Piperacillin Sod/Tazobactam Sod (Zosyn 2.25 Gm Iv Premix) 2.25 gm in 50 mls @ 100 mls/hr IVPB Q6H [facility] Last Admin: 03/07/17 21:01 Dose: 100 mls/hr Vancomycin HCl/Dextrose (Vancocin) 500 mg in 100 mls @ 166.6 mls/hr IVPB Q12H [facility] Stop: 03/09/17 22:31 Last Admin: 03/07/17 21:36 Dose: 166.6 mls/hr Norepinephrine Bitartrate 8 mg (/ Sodium Chloride) 258 mls @ 7.74 mls/hr IV .Q24H PRN; Protocol; 4 MCG/MIN PRN Reason: TITRATE PER MD ORDER Last Titration: 03/07/17 01:00 Dose: 0 mcg/min, 0 mls/hr Levetiracetam 500 mg/ Sodium (Chloride) 105 mls @ 420 mls/hr IVPB Q12H [facility] Last Admin: 03/07/17 14:29 Dose: 420 mls/hr Azithromycin 500 mg/ Sodium (Chloride) 250 mls @ 250 mls/hr IVPB DAILY [facility] Last Admin: 03/07/17 10:14 Dose: 250 mls/hr Propofol (Diprivan) 1,000 mg in 100 mls @ 2.436 mls/hr IV .Q24H PRN; Protocol; 5 MCG/KG/MIN PRN Reason: TITRATE PER MD ORDER Last Titration: 03/07/17 15:18 Dose: 19.9 mcg/kg/min, 9.7 mls/hr Insulin Human Regular (Novolin R) 0 unit SC Q6H TENA PRN Reason: Protocol Last Admin: 03/07/17 18:01 Dose: 2 unit Lorazepam (Ativan) 1 mg IVP Q2H PRN PRN Reason: Seizure activity Last Admin: 03/05/17 20:20 Dose: 1 mg Pantoprazole Sodium (Protonix Inj) 40 mg IVP DAILY [facility] Last Admin: 03/07/17 10:13 Dose: 40 mg Physical Exam - Head Exam Head Exam: ATRAUMATIC - Eye Exam Eye Exam: Normal appearance - ENT Exam ENT Exam: Mucous Membranes Dry - Respiratory Exam Respiratory Exam: NORMAL BREATHING PATTERN - Cardiovascular Exam Cardiovascular Exam: +S1, +S2 - GI/Abdominal Exam GI & Abdominal Exam: Normal Bowel Sounds - Extremities Exam Additional comments: right foot bandage Results - Vital Signs Recent Vital Signs: Last Vital Signs Temp 101.8 F H 03/07/17 21:30 Pulse 95 H 03/07/17 22:01 Resp 20 03/07/17 22:01 BP 96/55 L 03/07/17 22:02 Pulse Ox 99 03/07/17 22:01 - Labs Result Diagrams: 03/08/17 06:20 03/08/17 06:18 Labs: Laboratory Results - last 24 hr 03/06/17 03/06/17 03/07/17 17:30 23:38 04:57 WBC RBC Hgb Hct MCV MCH MCHC RDW Plt Count MPV Neut % (Auto) Lymph % (Auto) Archer % (Auto) Eos % (Auto) Baso % (Auto) Neut # Lymph # Archer # Eos # Baso # Neutrophils % (Manual) Band Neutrophils % Lymphocytes % (Manual) Monocytes % (Manual) Platelet Estimate Large Platelets Hypochromasia (manual) Poikilocytosis (manual Anisocytosis (manual) Macrocytosis (manual) Target Cells Puncture Site pCO2 pO2 HCO3 ABG pH ABG Total CO2 ABG O2 Saturation ABG Base Excess ABG Hemoglobin ABG Carboxyhemoglobin POC ABG HHb (Measured) ABG Methemoglobin Reji Test A-a O2 Difference Respiratory Index Hgb O2 Saturation Vent Mode Mechanical Rate FiO2 Tidal Volume PEEP Sodium Potassium Chloride Carbon Dioxide Anion Gap BUN Creatinine Est GFR ( Amer) Est GFR (Non-Af Amer) POC Glucose (mg/dL) 205 H 96 Random Glucose Calcium Phosphorus Magnesium Total Bilirubin AST ALT Alkaline Phosphatase Total Protein Albumin Globulin Albumin/Globulin Ratio Stool Occult Blood Vancomycin Trough Blood Type B POSITIVE Antibody Screen Negative 03/07/17 03/07/17 03/07/17 05:06 06:17 06:20 WBC 13.7 H RBC 3.17 L Hgb 9.6 L D Hct 28.2 L MCV 88.8 MCH 30.4 MCHC 34.2 RDW 15.9 H Plt Count 156 MPV 9.3 Neut % (Auto) 88.1 H Lymph % (Auto) 7.4 L Archer % (Auto) 4.1 Eos % (Auto) 0.1 Baso % (Auto) 0.3 Neut # 12.1 H Lymph # 1.0 Archer # 0.6 Eos # 0.0 Baso # 0.0 Neutrophils % (Manual) 84 H Band Neutrophils % 1 Lymphocytes % (Manual) 9 L Monocytes % (Manual) 6 Platelet Estimate Normal Large Platelets Present Hypochromasia (manual) Slight Poikilocytosis (manual Slight Anisocytosis (manual) Slight Macrocytosis (manual) Slight Target Cells Slight Puncture Site Rr pCO2 39 pO2 157 H HCO3 29.5 H ABG pH 7.49 H ABG Total CO2 30.9 H ABG O2 Saturation 99.6 H ABG Base Excess 5.9 H ABG Hemoglobin 10.6 L ABG Carboxyhemoglobin 1.6 H POC ABG HHb (Measured) 0.4 ABG Methemoglobin 0.5 Reji Test Pos A-a O2 Difference 365.0 Respiratory Index 2.3 Hgb O2 Saturation 97.5 Vent Mode Prvc Mechanical Rate 18 FiO2 80.0 Tidal Volume 450 PEEP 8 Sodium 139 Potassium 4.2 Chloride 96 L Carbon Dioxide 28 Anion Gap 19 BUN 62 H Creatinine 2.9 H Est GFR ( Amer) 28 Est GFR (Non-Af Amer) 23 POC Glucose (mg/dL) Random Glucose 147 H Calcium 7.8 L Phosphorus 7.0 H Magnesium 1.8 Total Bilirubin 1.4 H AST 112 H D ALT 166 H D Alkaline Phosphatase 96 Total Protein 7.2 Albumin 3.1 L Globulin 4.1 H Albumin/Globulin Ratio 0.8 L Stool Occult Blood Vancomycin Trough Blood Type Antibody Screen 03/07/17 03/07/17 03/07/17 06:42 11:39 17:46 WBC RBC Hgb Hct MCV MCH MCHC RDW Plt Count MPV Neut % (Auto) Lymph % (Auto) Archer % (Auto) Eos % (Auto) Baso % (Auto) Neut # Lymph # Archer # Eos # Baso # Neutrophils % (Manual) Band Neutrophils % Lymphocytes % (Manual) Monocytes % (Manual) Platelet Estimate Large Platelets Hypochromasia (manual) Poikilocytosis (manual Anisocytosis (manual) Macrocytosis (manual) Target Cells Puncture Site pCO2 pO2 HCO3 ABG pH ABG Total CO2 ABG O2 Saturation ABG Base Excess ABG Hemoglobin ABG Carboxyhemoglobin POC ABG HHb (Measured) ABG Methemoglobin Reji Test A-a O2 Difference Respiratory Index Hgb O2 Saturation Vent Mode Mechanical Rate FiO2 Tidal Volume PEEP Sodium Potassium Chloride Carbon Dioxide Anion Gap BUN Creatinine Est GFR ( Amer) Est GFR (Non-Af Amer) POC Glucose (mg/dL) 183 H 193 H Random Glucose Calcium Phosphorus Magnesium Total Bilirubin AST ALT Alkaline Phosphatase Total Protein Albumin Globulin Albumin/Globulin Ratio Stool Occult Blood Negative Vancomycin Trough Blood Type Antibody Screen 03/07/17 17:58 WBC RBC Hgb Hct MCV MCH MCHC RDW Plt Count MPV Neut % (Auto) Lymph % (Auto) Archer % (Auto) Eos % (Auto) Baso % (Auto) Neut # Lymph # Archer # Eos # Baso # Neutrophils % (Manual) Band Neutrophils % Lymphocytes % (Manual) Monocytes % (Manual) Platelet Estimate Large Platelets Hypochromasia (manual) Poikilocytosis (manual Anisocytosis (manual) Macrocytosis (manual) Target Cells Puncture Site pCO2 pO2 HCO3 ABG pH ABG Total CO2 ABG O2 Saturation ABG Base Excess ABG Hemoglobin ABG Carboxyhemoglobin POC ABG HHb (Measured) ABG Methemoglobin Reji Test A-a O2 Difference Respiratory Index Hgb O2 Saturation Vent Mode Mechanical Rate FiO2 Tidal Volume PEEP Sodium Potassium Chloride Carbon Dioxide Anion Gap BUN Creatinine Est GFR ( Amer) Est GFR (Non-Af Amer) POC Glucose (mg/dL) Random Glucose Calcium Phosphorus Magnesium Total Bilirubin AST ALT Alkaline Phosphatase Total Protein Albumin Globulin Albumin/Globulin Ratio Stool Occult Blood Vancomycin Trough 27.4 H Blood Type Antibody Screen Assessment & Plan (1) Anemia Assessment and Plan: will check ferritin, retic count, b12, folate, FOBT to further characterize ?anemia of CKD transfusion support Status: Acute (2) Coagulopathy Assessment and Plan: likely nutritional Thank you for this interesting consult. Status: Acute
[2017-03-08] MEDS: Albuterol-Ipratrop 3 mg / 0.5 (3 ml) UD INH SCH ×4 (01:49→19:59)
[2017-03-08] MEDS: (Novolin R) Insulin Human Regular 100 units/ml vial SC SCH ×5 (02:44→17:55)
[2017-03-08] MEDS: levETIRAcetam 500 MG in Sodium Chloride 0.9% 100 ML IVPB SCH (02:46)
[2017-03-08] MEDS: Piperacill/Tazo 2.25gm in Dex 2.25 GM/50 ML BAG IVPB SCH ×4 (02:46→21:21)
[2017-03-08 05:29] LABS: ABG ALLEN TEST POS; ABG MECHANICAL RATE 18; ARTERIAL BLOOD GAS MODE PRVC; ARTERIAL BLOOD HGB O2 SAT 96.8 % (95.0-98.0); ATERIAL BLOOD GAS PEEP 8; CARBOXYHEMOGLOBIN 1.2 % (0.5-1.5); DRAW SITE R; HHB 1.2 % (0.0-5.0); METHEMOGLOBIN 0.8 % (0.0-3.0)
[2017-03-08 06:34] LABS: BASO % 0.3 % (0.0-2.0); EOS % 0.3 % (0.0-4.0); HEMATOCRIT 28.7 % (35.0-51.0); LYMPH # 0.7 K/uL (1.0-4.3); LYMPH % 7.6 % (20.0-40.0); MEAN CELL VOLUME 89.7 fL (80.0-94.0); MEAN CORPUSCULAR HEMOGLOBIN 30.5 pg (27.0-31.0); MEAN PLATELET VOLUME 9.1 fL (7.2-11.7); MONO # 0.6 K/uL (0.0-0.8); MONO % 5.9 % (0.0-10.0); PLATELET COUNT 148 K/uL (130-400); RED CELL DISTRIBUTION WIDTH 15.8 % (11.5-14.5); WHITE BLOOD COUNT 9.4 K/uL (4.8-10.8)
[2017-03-08 06:36] LABS: POTASSIUM 3.7 mmol/L (3.6-5.2)
[2017-03-08 06:38] LABS: ALB/GLOB RATIO 0.8 (1.0-2.1); BILIRUBIN,DIRECT 0.7 mg/dL (0.0-0.4); BILIRUBIN,TOTAL 1.3 mg/dL (0.2-1.3); TOTAL PROTEIN 7.2 g/dL (6.3-8.3)
[2017-03-08 06:39] LABS: CALCIUM 7.6 mg/dl (8.6-10.4); MAGNESIUM 1.8 mg/dL (1.6-2.3); PHOSPHOROUS 6.6 mg/dL (2.5-4.5)
[2017-03-08] MEDS: Propofol 10 mg/ml 1,000 MG/100 ML VIAL IV PRN (07:06)
[2017-03-08 08:39] LABS: NUCLEATED RED BLOOD CELL 1 % (0-0); TOTAL CELLS COUNTED 100
[2017-03-08 08:40] LABS: NEUTROPHIL 82 % (50-75)
--- NOTE | 2017-03-08 09:02 | RAD ---
Chest x-ray single frontal view History: Intubated. Comparison: 03/07/2017 Findings: Lines and tubes stable position. Prominent increased consolidative opacifications in the right mid to lower lung zone. Venous congestion. Milder patchy opacification at the left lung base. Cardiomegaly. Prominent ectatic aorta. Degenerative changes spine and shoulders. Impression: Lines and tubes stable position. Prominent increased consolidative opacifications in the right mid to lower lung zone. Venous congestion. Milder patchy opacification at the left lung base. Cardiomegaly. Prominent ectatic aorta.
--- NOTE | 2017-03-08 09:23 | PN ---
DATE: 03/08/2017 NEUROLOGIC PROBLEM: Anoxic encephalopathy with status epilepticus. PHYSICAL EXAMINATION: VITAL SIGNS: Blood pressure 119/65, mean arterial pressure of 79, respiratory rate 17 on vent, and pulse rate 98. The patient remains comatose. No oculocephalic noted. No corneal reflex. Flaccid, quadriplegic. Electroencephalogram shows burst suppression throughout the recording. RECOMMENDATIONS: Stop the propofol and continue Keppra renal dose. I would like to do cerebral blood flow. If seizure occurs I may add Cerebyx instead of propofol. The patient will be followed depends on the cerebral blood flow and nuclear study. Further management will be requested. Ronnie Rascon MD
--- NOTE | 2017-03-08 09:48 | CP.CCUPN ---
<Gal Pedro - Last Filed: 03/08/17 17:03> CCU Objective - Vital Signs / Intake & Output Vital Signs (Last 4 hours): Vital Signs Temp Pulse Resp BP Pulse Ox 03/08/17 16:02 99 H 17 106/63 99 03/08/17 16:00 101.8 F H 100 H 16 99 03/08/17 15:30 100 H 23 100 03/08/17 15:02 102 H 26 H 110/65 99 03/08/17 15:00 101 H 23 100 03/08/17 14:30 100 H 23 100 03/08/17 14:02 96 H 17 101/57 L 99 03/08/17 14:00 98 H 18 99 03/08/17 13:30 98 H 16 100 Intake and Output (Last 8hrs): Intake & Output 03/08/17 03/08/17 03/08/17 06:59 14:59 22:59 Intake Total 527.6 920 120 Output Total 805 775 150 Balance -277.4 145 -30 Weight 177 lb 14.609 oz Intake: IV 100 40 Intake, IV Amount 227.6 505 50 Right Antecubital 150 500 50 Right Hand 77.6 5 Tube Feeding 200 275 70 Other 100 Output: Urine 805 775 150 Urethral (Gipson) 805 775 150 Other: # Bowel Movements 0 0 0 - Medications Active Medications: Active Medications Generic Name Dose Route Start Last Admin Trade Name Freq PRN Reason Stop Dose Admin Acetaminophen 650 mg 03/05/17 22:55 03/08/17 16:25 Tylenol 650mg/20.3ml Solution Ud PO 650 mg Q4 PRN Administration temp >101 Albuterol/Ipratropium 3 ml 03/05/17 14:00 03/08/17 13:24 Duoneb 3 Mg/0.5 Mg (3 Ml) Ud INH 3 ml RQ6 TENA Administration Artificial Tears 0 gm 03/06/17 10:04 03/06/17 14:23 Lacri-Lube OS 3.5 gm Q4H PRN Administration Other Calcium Acetate 667 mg 03/08/17 10:00 03/08/17 12:18 Phoslo GT 667 mg TIDCC TENA Administration Heparin Sodium (Porcine) 5,000 units 03/05/17 06:00 03/08/17 13:23 Heparin SC 5,000 units Q8 TENA Administration Piperacillin Sod/Tazobactam Sod 2.25 gm in 50 mls @ 100 mls/hr 03/04/17 21:30 03/08/17 14:45 Zosyn 2.25 Gm Iv Premix IVPB 100 mls/hr Q6H TENA Administration Azithromycin 500 mg/ Sodium 250 mls @ 250 mls/hr 03/05/17 13:00 03/08/17 10: 04 Chloride IVPB 250 mls/hr DAILY TENA Administration Propofol 1,000 mg in 100 mls @ 2.436 mls/hr 03/05/17 21:00 03/08/17 07:30 Diprivan IV 0 mcg/kg/min .Q24H PRN 0 mls/hr TITRATE PER MD ORDER Titration Protocol 5 MCG/KG/MIN Vancomycin HCl/Dextrose 500 mg in 100 mls @ 100 mls/hr 03/08/17 11:00 12:18 Vancocin IVPB 03/13/17 10:01 100 mls/hr DAILY TENA Administration Levetiracetam 500 mg/ Dextrose 105 mls @ 420 mls/hr 03/08/17 14:45 03/08/17 14:11 IVPB 420 mls/hr Q12H TENA Administration Insulin Human Regular 0 unit 03/08/17 09:35 03/08/17 12:19 Novolin R SC 4 unit Q6 TENA Administration Protocol Lorazepam 1 mg 03/05/17 00:57 03/08/17 08:05 Ativan IVP 1 mg Q2H PRN Administration Seizure activity Pantoprazole Sodium 40 mg 03/05/17 10:00 03/08/17 10:04 Protonix Inj IVP 40 mg DAILY TENA Administration - Patient Studies Lab Studies: Microbiology Studies 03/04/17 20:30 Blood Culture - Preliminary Blood NO GROWTH AFTER 3 DAYS 03/04/17 21:00 Blood Culture - Preliminary Blood NO GROWTH AFTER 3 DAYS Lab Studies 03/08/17 03/08/17 03/08/17 Range/Units 11:54 06:20 06:20 WBC 9.4 (4.8-10.8) K/uL RBC 3.20 L (4.40-5.90) Mil/uL Hgb 9.7 L (12.0-18.0) g/dL Hct 28.7 L (35.0-51.0) % MCV 89.7 (80.0-94.0) fL MCH 30.5 (27.0-31.0) pg MCHC 34.0 (33.0-37.0) g/dL RDW 15.8 H (11.5-14.5) % Plt Count 148 (130-400) K/uL MPV 9.1 (7.2-11.7) fL Neut % (Auto) 85.9 H (50.0-75.0) % Lymph % (Auto) 7.6 L (20.0-40.0) % [place] % (Auto) 5.9 (0.0-10.0) % Eos % (Auto) 0.3 (0.0-4.0) % Baso % (Auto) 0.3 (0.0-2.0) % Neut # 8.1 H (1.8-7.0) K/uL Lymph # 0.7 L (1.0-4.3) K/uL [place] # 0.6 (0.0-0.8) K/uL Eos # 0.0 (0.0-0.7) K/uL Baso # 0.0 (0.0-0.2) K/uL Neutrophils % (Manual) 82 H (50-75) % Band Neutrophils % 1 (0-2) % Lymphocytes % (Manual) 10 L (20-40) % Monocytes % (Manual) 7 (0-10) % Nucleated RBC % 1 H (0-0) % Platelet Estimate Normal (NORMAL) Hypochromasia (manual) Slight Poikilocytosis (manual Slight Anisocytosis (manual) Slight Tear Drop Cells Slight Retic Count 2.5 H (0.5-1.5) % Puncture Site pCO2 (35-45) mm/Hg pO2 (80-100) mm/Hg HCO3 (21-28) mmol/L ABG pH (7.35-7.45) ABG Total CO2 (22-28) mmol/L ABG O2 Saturation (95-98) % ABG Base Excess (-2.0-3.0) mmol/L ABG Hemoglobin (11.7-17.4) g/dL ABG Carboxyhemoglobin (0.5-1.5) % POC ABG HHb (Measured) (0.0-5.0) % ABG Methemoglobin (0.0-3.0) % Reji Test A-a O2 Difference mm/Hg Respiratory Index Hgb O2 Saturation (95.0-98.0) % Vent Mode Mechanical Rate FiO2 % Tidal Volume PEEP Sodium (132-148) mmol/L Potassium (3.6-5.2) mmol/L Chloride (98-107) mmol/L Carbon Dioxide (22-30) mmol/L Anion Gap (10-20) BUN (9-20) mg/dL Creatinine (0.8-1.5) mg/dL Est GFR ( Amer) Est GFR (Non-Af Amer) POC Glucose (mg/dL) 210 H (65-110) mg/dL Random Glucose (75-110) mg/dL Calcium (8.6-10.4) mg/dl Phosphorus (2.5-4.5) mg/dL Magnesium (1.6-2.3) mg/dL Ferritin ng/mL Total Bilirubin (0.2-1.3) mg/dL Direct Bilirubin (0.0-0.4) mg/dL AST (17-59) U/L ALT (21-72) U/L Alkaline Phosphatase (38-126) U/L Total Protein (6.3-8.3) g/dL Albumin (3.5-5.0) g/dL Globulin (2.2-3.9) gm/dL Albumin/Globulin Ratio (1.0-2.1) Vitamin B12 (239-931) pg/mL Folate ng/mL Vancomycin Trough (5.0-10.0) ug/mL 03/08/17 03/08/17 03/08/17 Range/Units 06:18 05:36 05:11 WBC (4.8-10.8) K/uL RBC (4.40-5.90) Mil/uL Hgb (12.0-18.0) g/dL Hct (35.0-51.0) % MCV (80.0-94.0) fL MCH (27.0-31.0) pg MCHC (33.0-37.0) g/dL RDW (11.5-14.5) % Plt Count (130-400) K/uL MPV (7.2-11.7) fL Neut % (Auto) (50.0-75.0) % Lymph % (Auto) (20.0-40.0) % [place] % (Auto) (0.0-10.0) % Eos % (Auto) (0.0-4.0) % Baso % (Auto) (0.0-2.0) % Neut # (1.8-7.0) K/uL Lymph # (1.0-4.3) K/uL [place] # (0.0-0.8) K/uL Eos # (0.0-0.7) K/uL Baso # (0.0-0.2) K/uL Neutrophils % (Manual) (50-75) % Band Neutrophils % (0-2) % Lymphocytes % (Manual) (20-40) % Monocytes % (Manual) (0-10) % Nucleated RBC % (0-0) % Platelet Estimate (NORMAL) Hypochromasia (manual) Poikilocytosis (manual Anisocytosis (manual) Tear Drop Cells Retic Count (0.5-1.5) % Puncture Site R pCO2 38 (35-45) mm/Hg pO2 170 H (80-100) mm/Hg HCO3 28.5 H (21-28) mmol/L ABG pH 7.48 H (7.35-7.45) ABG Total CO2 29.5 H (22-28) mmol/L ABG O2 Saturation 98.8 H (95-98) % ABG Base Excess 4.6 H (-2.0-3.0) mmol/L ABG Hemoglobin 16.2 (11.7-17.4) g/dL ABG Carboxyhemoglobin 1.2 (0.5-1.5) % POC ABG HHb (Measured) 1.2 (0.0-5.0) % ABG Methemoglobin 0.8 (0.0-3.0) % Reji Test Pos A-a O2 Difference 353.0 mm/Hg Respiratory Index 2.1 Hgb O2 Saturation 96.8 (95.0-98.0) % Vent Mode Prvc Mechanical Rate 18 FiO2 80.0 % Tidal Volume 450 PEEP 8 Sodium 140 (132-148) mmol/L Potassium 3.7 (3.6-5.2) mmol/L Chloride 97 L (98-107) mmol/L Carbon Dioxide 28 (22-30) mmol/L Anion Gap 19 (10-20) BUN 64 H (9-20) mg/dL Creatinine 3.0 H (0.8-1.5) mg/dL Est GFR ( Amer) 27 Est GFR (Non-Af Amer) 22 POC Glucose (mg/dL) 254 H (65-110) mg/dL Random Glucose 230 H (75-110) mg/dL Calcium 7.6 L (8.6-10.4) mg/dl Phosphorus 6.6 H (2.5-4.5) mg/dL Magnesium 1.8 (1.6-2.3) mg/dL Ferritin 1180.0 ng/mL Total Bilirubin 1.3 (0.2-1.3) mg/dL Direct Bilirubin 0.7 H (0.0-0.4) mg/dL AST 86 H D (17-59) U/L ALT 115 H D (21-72) U/L Alkaline Phosphatase 103 (38-126) U/L Total Protein 7.2 (6.3-8.3) g/dL Albumin 3.1 L (3.5-5.0) g/dL Globulin 4.1 H (2.2-3.9) gm/dL Albumin/Globulin Ratio 0.8 L (1.0-2.1) Vitamin B12 348 (239-931) pg/mL Folate 8.5 ng/mL Vancomycin Trough (5.0-10.0) ug/mL 03/07/17 03/07/17 03/07/17 Range/Units 23:52 17:58 17:46 WBC (4.8-10.8) K/uL RBC (4.40-5.90) Mil/uL Hgb (12.0-18.0) g/dL Hct (35.0-51.0) % MCV (80.0-94.0) fL MCH (27.0-31.0) pg MCHC (33.0-37.0) g/dL RDW (11.5-14.5) % Plt Count (130-400) K/uL MPV (7.2-11.7) fL Neut % (Auto) (50.0-75.0) % Lymph % (Auto) (20.0-40.0) % [place] % (Auto) (0.0-10.0) % Eos % (Auto) (0.0-4.0) % Baso % (Auto) (0.0-2.0) % Neut # (1.8-7.0) K/uL Lymph # (1.0-4.3) K/uL [place] # (0.0-0.8) K/uL Eos # (0.0-0.7) K/uL Baso # (0.0-0.2) K/uL Neutrophils % (Manual) (50-75) % Band Neutrophils % (0-2) % Lymphocytes % (Manual) (20-40) % Monocytes % (Manual) (0-10) % Nucleated RBC % (0-0) % Platelet Estimate (NORMAL) Hypochromasia (manual) Poikilocytosis (manual Anisocytosis (manual) Tear Drop Cells Retic Count (0.5-1.5) % Puncture Site pCO2 (35-45) mm/Hg pO2 (80-100) mm/Hg HCO3 (21-28) mmol/L ABG pH (7.35-7.45) ABG Total CO2 (22-28) mmol/L ABG O2 Saturation (95-98) % ABG Base Excess (-2.0-3.0) mmol/L ABG Hemoglobin (11.7-17.4) g/dL ABG Carboxyhemoglobin (0.5-1.5) % POC ABG HHb (Measured) (0.0-5.0) % ABG Methemoglobin (0.0-3.0) % Reji Test A-a O2 Difference mm/Hg Respiratory Index Hgb O2 Saturation (95.0-98.0) % Vent Mode Mechanical Rate FiO2 % Tidal Volume PEEP Sodium (132-148) mmol/L Potassium (3.6-5.2) mmol/L Chloride (98-107) mmol/L Carbon Dioxide (22-30) mmol/L Anion Gap (10-20) BUN (9-20) mg/dL Creatinine (0.8-1.5) mg/dL Est GFR ( Amer) Est GFR (Non-Af Amer) POC Glucose (mg/dL) 198 H 193 H (65-110) mg/dL Random Glucose (75-110) mg/dL Calcium (8.6-10.4) mg/dl Phosphorus (2.5-4.5) mg/dL Magnesium (1.6-2.3) mg/dL Ferritin ng/mL Total Bilirubin (0.2-1.3) mg/dL Direct Bilirubin (0.0-0.4) mg/dL AST (17-59) U/L ALT (21-72) U/L Alkaline Phosphatase (38-126) U/L Total Protein (6.3-8.3) g/dL Albumin (3.5-5.0) g/dL Globulin (2.2-3.9) gm/dL Albumin/Globulin Ratio (1.0-2.1) Vitamin B12 (239-931) pg/mL Folate ng/mL Vancomycin Trough 27.4 H (5.0-10.0) ug/mL Laboratory Results - last 24 hr 03/07/17 03/07/17 03/07/17 17:46 17:58 23:52 WBC RBC Hgb Hct MCV MCH MCHC RDW Plt Count MPV Neut % (Auto) Lymph % (Auto) [place] % (Auto) Eos % (Auto) Baso % (Auto) Neut # Lymph # [place] # Eos # Baso # Neutrophils % (Manual) Band Neutrophils % Lymphocytes % (Manual) Monocytes % (Manual) Nucleated RBC % Platelet Estimate Hypochromasia (manual) Poikilocytosis (manual Anisocytosis (manual) Tear Drop Cells Retic Count Puncture Site pCO2 pO2 HCO3 ABG pH ABG Total CO2 ABG O2 Saturation ABG Base Excess ABG Hemoglobin ABG Carboxyhemoglobin POC ABG HHb (Measured) ABG Methemoglobin Reji Test A-a O2 Difference Respiratory Index Hgb O2 Saturation Vent Mode Mechanical Rate FiO2 Tidal Volume PEEP Sodium Potassium Chloride Carbon Dioxide Anion Gap BUN Creatinine Est GFR ( Amer) Est GFR (Non-Af Amer) POC Glucose (mg/dL) 193 H 198 H Random Glucose Calcium Phosphorus Magnesium Ferritin Total Bilirubin Direct Bilirubin AST ALT Alkaline Phosphatase Total Protein Albumin Globulin Albumin/Globulin Ratio Vitamin B12 Folate Vancomycin Trough 27.4 H 03/08/17 03/08/17 03/08/17 05:11 05:36 06:18 WBC RBC Hgb Hct MCV MCH MCHC RDW Plt Count MPV Neut % (Auto) Lymph % (Auto) [place] % (Auto) Eos % (Auto) Baso % (Auto) Neut # Lymph # [place] # Eos # Baso # Neutrophils % (Manual) Band Neutrophils % Lymphocytes % (Manual) Monocytes % (Manual) Nucleated RBC % Platelet Estimate Hypochromasia (manual) Poikilocytosis (manual Anisocytosis (manual) Tear Drop Cells Retic Count Puncture Site R pCO2 38 pO2 170 H HCO3 28.5 H ABG pH 7.48 H ABG Total CO2 29.5 H ABG O2 Saturation 98.8 H ABG Base Excess 4.6 H ABG Hemoglobin 16.2 ABG Carboxyhemoglobin 1.2 POC ABG HHb (Measured) 1.2 ABG Methemoglobin 0.8 Reji Test Pos A-a O2 Difference 353.0 Respiratory Index 2.1 Hgb O2 Saturation 96.8 Vent Mode Prvc Mechanical Rate 18 FiO2 80.0 Tidal Volume 450 PEEP 8 Sodium 140 Potassium 3.7 Chloride 97 L Carbon Dioxide 28 Anion Gap 19 BUN 64 H Creatinine 3.0 H Est GFR ( Amer) 27 Est GFR (Non-Af Amer) 22 POC Glucose (mg/dL) 254 H Random Glucose 230 H Calcium 7.6 L Phosphorus 6.6 H Magnesium 1.8 Ferritin 1180.0 Total Bilirubin 1.3 Direct Bilirubin 0.7 H AST 86 H D ALT 115 H D Alkaline Phosphatase 103 Total Protein 7.2 Albumin 3.1 L Globulin 4.1 H Albumin/Globulin Ratio 0.8 L Vitamin B12 348 Folate 8.5 Vancomycin Trough 03/08/17 03/08/17 03/08/17 06:20 06:20 11:54 WBC 9.4 RBC 3.20 L Hgb 9.7 L Hct 28.7 L MCV 89.7 MCH 30.5 MCHC 34.0 RDW 15.8 H Plt Count 148 MPV 9.1 Neut % (Auto) 85.9 H Lymph % (Auto) 7.6 L [place] % (Auto) 5.9 Eos % (Auto) 0.3 Baso % (Auto) 0.3 Neut # 8.1 H Lymph # 0.7 L [place] # 0.6 Eos # 0.0 Baso # 0.0 Neutrophils % (Manual) 82 H Band Neutrophils % 1 Lymphocytes % (Manual) 10 L Monocytes % (Manual) 7 Nucleated RBC % 1 H Platelet Estimate Normal Hypochromasia (manual) Slight Poikilocytosis (manual Slight Anisocytosis (manual) Slight Tear Drop Cells Slight Retic Count 2.5 H Puncture Site pCO2 pO2 HCO3 ABG pH ABG Total CO2 ABG O2 Saturation ABG Base Excess ABG Hemoglobin ABG Carboxyhemoglobin POC ABG HHb (Measured) ABG Methemoglobin Reji Test A-a O2 Difference Respiratory Index Hgb O2 Saturation Vent Mode Mechanical Rate FiO2 Tidal Volume PEEP Sodium Potassium Chloride Carbon Dioxide Anion Gap BUN Creatinine Est GFR ( Amer) Est GFR (Non-Af Amer) POC Glucose (mg/dL) 210 H Random Glucose Calcium Phosphorus Magnesium Ferritin Total Bilirubin Direct Bilirubin AST ALT Alkaline Phosphatase Total Protein Albumin Globulin Albumin/Globulin Ratio Vitamin B12 Folate Vancomycin Trough Attending/Attestation - Attestation I have personally seen and examined this patient.: Yes I have fully participated in the care of the patient.: Yes I have reviewed all pertinent clinical information: Yes Notes (Text): 03/08/17 17:03 I have seen and examined the patient. Medical records, lab studies, and imaging were reviewed by me and a management plan was formulated on multidisciplinary rounds with resident Dr. Rosales. I agree with their documented assessment and plan. Patient has severe anoxic brain injury. Still having seizures, while on Keppra , reduced Propofol as per neurology. No hope of recovery. Told family we will give them time, until Sunday to make a decision on trach/PEG or withdrawal of care. Continue Vanco/Zosyn. Tube feeds at goal, acute kidney injury. increased insulin sliding scale. Critical Care Time 35 minutes. Multi-disciplinary rounds were performed with house staff, nursing, speech therapy, respiratory therapy, pharmacy and nutrition with integrated input from the primary team/attending and other consulting services. The documented time is cumulative and includes review of patient data/exams/labs/chart review and examination of the patient on rounds and throughout the day; time is exclusive of any procedures or teaching time. <Temi Rosales - Last Filed: 03/08/17 19:40> CCU Subjective - Physician Review Subjective (Free Text): Patient seen and examined at bedside. ROS unobtainable due to patient's current clinical status. CCU Objective - Vital Signs / Intake & Output Vital Signs (Last 4 hours): Vital Signs Temp Pulse Resp BP Pulse Ox 03/08/17 08:02 112 H 26 H 119/69 100 03/08/17 08:00 98.3 F 110 H 26 H 100 03/08/17 07:30 100 H 18 100 03/08/17 07:02 102 H 22 120/69 98 03/08/17 06:02 98 H 17 119/65 98 Intake and Output (Last 8hrs): Intake & Output 03/07/17 03/08/17 03/08/17 22:59 06:59 14:59 Intake Total 772.6 527.6 110 Output Total 1365 805 135 Balance -592.4 -277.4 -25 Weight 177 lb 14.609 oz Intake: IV 100 100 40 Intake, IV Amount 377.6 227.6 5 Right Antecubital 300 150 Right Hand 58.2 77.6 5 Right Medial Port Femoral 19.4 Tube Feeding 165 200 65 Other 130 Output: Urine 1365 805 135 Urethral (Gipson) 1365 805 135 Other: # Bowel Movements 0 0 0 - Physical Exam Head: Positive for: Atraumatic, Normocephalic Mouth: Positive for: Moist Mucous Membranes Respiratory/Chest: Positive for: Rales Cardiovascular: Positive for: Regular Rate and Rhythm, Normal S1, S2 Abdomen: Negative for: Distention Lower Extremity: Positive for: Other (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 Negative for: Alert, Oriented x 3 - Medications Active Medications: Active Medications Generic Name Dose Route Start Last Admin Trade Name Freq PRN Reason Stop Dose Admin Acetaminophen 650 mg 03/05/17 22:55 03/07/17 20:30 Tylenol 650mg/20.3ml Solution Ud PO 650 mg Q4 PRN Administration temp >101 Albuterol/Ipratropium 3 ml 03/05/17 14:00 03/08/17 07:16 Duoneb 3 Mg/0.5 Mg (3 Ml) Ud INH 3 ml RQ6 TENA Administration Artificial Tears 0 gm 03/06/17 10:04 03/06/17 14:23 Lacri-Lube OS 3.5 gm Q4H PRN Administration Other Heparin Sodium (Porcine) 5,000 units 03/05/17 06:00 03/08/17 05:43 Heparin SC 5,000 units Q8 TENA Administration Piperacillin Sod/Tazobactam Sod 2.25 gm in 50 mls @ 100 mls/hr 03/04/17 21:30 03/08/17 09:07 Zosyn 2.25 Gm Iv Premix IVPB 100 mls/hr Q6H TENA Administration Levetiracetam 500 mg/ Sodium 105 mls @ 420 mls/hr 03/05/17 02:45 03/08/17 02: 46 Chloride IVPB 420 mls/hr Q12H TENA Administration Azithromycin 500 mg/ Sodium 250 mls @ 250 mls/hr 03/05/17 13:00 03/07/17 10: 14 Chloride IVPB 250 mls/hr DAILY TENA Administration Propofol 1,000 mg in 100 mls @ 2.436 mls/hr 03/05/17 21:00 03/08/17 07:30 Diprivan IV 0 mcg/kg/min .Q24H PRN 0 mls/hr TITRATE PER MD ORDER Titration Protocol 5 MCG/KG/MIN Vancomycin HCl 500 mg/ Sodium 100 mls @ 100 mls/hr 03/08/17 10:00 Chloride IVPB DAILY TENA Insulin Human Regular 0 unit 03/08/17 09:35 Novolin R SC Q6 TENA Protocol Lorazepam 1 mg 03/05/17 00:57 03/08/17 08:05 Ativan IVP 1 mg Q2H PRN Administration Seizure activity Pantoprazole Sodium 40 mg 03/05/17 10:00 03/07/17 10:13 Protonix Inj IVP 40 mg DAILY TENA Administration - Patient Studies Lab Studies: Microbiology Studies 03/04/17 20:30 Blood Culture - Preliminary Blood NO GROWTH AFTER 48 HOURS 03/04/17 21:00 Blood Culture - Preliminary Blood NO GROWTH AFTER 48 HOURS Lab Studies 03/08/17 03/08/17 03/08/17 Range/Units 06:20 06:20 06:18 WBC 9.4 (4.8-10.8) K/uL RBC 3.20 L (4.40-5.90) Mil/uL Hgb 9.7 L (12.0-18.0) g/dL Hct 28.7 L (35.0-51.0) % MCV 89.7 (80.0-94.0) fL MCH 30.5 (27.0-31.0) pg MCHC 34.0 (33.0-37.0) g/dL RDW 15.8 H (11.5-14.5) % Plt Count 148 (130-400) K/uL MPV 9.1 (7.2-11.7) fL Neut % (Auto) 85.9 H (50.0-75.0) % Lymph % (Auto) 7.6 L (20.0-40.0) % [place] % (Auto) 5.9 (0.0-10.0) % Eos % (Auto) 0.3 (0.0-4.0) % Baso % (Auto) 0.3 (0.0-2.0) % Neut # 8.1 H (1.8-7.0) K/uL Lymph # 0.7 L (1.0-4.3) K/uL [place] # 0.6 (0.0-0.8) K/uL Eos # 0.0 (0.0-0.7) K/uL Baso # 0.0 (0.0-0.2) K/uL Neutrophils % (Manual) 82 H (50-75) % Band Neutrophils % 1 (0-2) % Lymphocytes % (Manual) 10 L (20-40) % Monocytes % (Manual) 7 (0-10) % Nucleated RBC % 1 H (0-0) % Platelet Estimate Normal (NORMAL) Hypochromasia (manual) Slight Poikilocytosis (manual Slight Anisocytosis (manual) Slight Tear Drop Cells Slight Retic Count 2.5 H (0.5-1.5) % Puncture Site pCO2 (35-45) mm/Hg pO2 (80-100) mm/Hg HCO3 (21-28) mmol/L ABG pH (7.35-7.45) ABG Total CO2 (22-28) mmol/L ABG O2 Saturation (95-98) % ABG Base Excess (-2.0-3.0) mmol/L ABG Hemoglobin (11.7-17.4) g/dL ABG Carboxyhemoglobin (0.5-1.5) % POC ABG HHb (Measured) (0.0-5.0) % ABG Methemoglobin (0.0-3.0) % Reji Test A-a O2 Difference mm/Hg Respiratory Index Hgb O2 Saturation (95.0-98.0) % Vent Mode Mechanical Rate FiO2 % Tidal Volume PEEP Sodium 140 (132-148) mmol/L Potassium 3.7 (3.6-5.2) mmol/L Chloride 97 L (98-107) mmol/L Carbon Dioxide 28 (22-30) mmol/L Anion Gap 19 (10-20) BUN 64 H (9-20) mg/dL Creatinine 3.0 H (0.8-1.5) mg/dL Est GFR ( Amer) 27 Est GFR (Non-Af Amer) 22 POC Glucose (mg/dL) (65-110) mg/dL Random Glucose 230 H (75-110) mg/dL Calcium 7.6 L (8.6-10.4) mg/dl Phosphorus 6.6 H (2.5-4.5) mg/dL Magnesium 1.8 (1.6-2.3) mg/dL Ferritin 1180.0 ng/mL Total Bilirubin 1.3 (0.2-1.3) mg/dL Direct Bilirubin 0.7 H (0.0-0.4) mg/dL AST 86 H D (17-59) U/L ALT 115 H D (21-72) U/L Alkaline Phosphatase 103 (38-126) U/L Total Protein 7.2 (6.3-8.3) g/dL Albumin 3.1 L (3.5-5.0) g/dL Globulin 4.1 H (2.2-3.9) gm/dL Albumin/Globulin Ratio 0.8 L (1.0-2.1) Vitamin B12 348 (239-931) pg/mL Vancomycin Trough (5.0-10.0) ug/mL 03/08/17 03/08/17 03/07/17 Range/Units 05:36 05:11 23:52 WBC (4.8-10.8) K/uL RBC (4.40-5.90) Mil/uL Hgb (12.0-18.0) g/dL Hct (35.0-51.0) % MCV (80.0-94.0) fL MCH (27.0-31.0) pg MCHC (33.0-37.0) g/dL RDW (11.5-14.5) % Plt Count (130-400) K/uL MPV (7.2-11.7) fL Neut % (Auto) (50.0-75.0) % Lymph % (Auto) (20.0-40.0) % [place] % (Auto) (0.0-10.0) % Eos % (Auto) (0.0-4.0) % Baso % (Auto) (0.0-2.0) % Neut # (1.8-7.0) K/uL Lymph # (1.0-4.3) K/uL [place] # (0.0-0.8) K/uL Eos # (0.0-0.7) K/uL Baso # (0.0-0.2) K/uL Neutrophils % (Manual) (50-75) % Band Neutrophils % (0-2) % Lymphocytes % (Manual) (20-40) % Monocytes % (Manual) (0-10) % Nucleated RBC % (0-0) % Platelet Estimate (NORMAL) Hypochromasia (manual) Poikilocytosis (manual Anisocytosis (manual) Tear Drop Cells Retic Count (0.5-1.5) % Puncture Site R pCO2 38 (35-45) mm/Hg pO2 170 H (80-100) mm/Hg HCO3 28.5 H (21-28) mmol/L ABG pH 7.48 H (7.35-7.45) ABG Total CO2 29.5 H (22-28) mmol/L ABG O2 Saturation 98.8 H (95-98) % ABG Base Excess 4.6 H (-2.0-3.0) mmol/L ABG Hemoglobin 16.2 (11.7-17.4) g/dL ABG Carboxyhemoglobin 1.2 (0.5-1.5) % POC ABG HHb (Measured) 1.2 (0.0-5.0) % ABG Methemoglobin 0.8 (0.0-3.0) % Reji Test Pos A-a O2 Difference 353.0 mm/Hg Respiratory Index 2.1 Hgb O2 Saturation 96.8 (95.0-98.0) % Vent Mode Prvc Mechanical Rate 18 FiO2 80.0 % Tidal Volume 450 PEEP 8 Sodium (132-148) mmol/L Potassium (3.6-5.2) mmol/L Chloride (98-107) mmol/L Carbon Dioxide (22-30) mmol/L Anion Gap (10-20) BUN (9-20) mg/dL Creatinine (0.8-1.5) mg/dL Est GFR ( Amer) Est GFR (Non-Af Amer) POC Glucose (mg/dL) 254 H 198 H (65-110) mg/dL Random Glucose (75-110) mg/dL Calcium (8.6-10.4) mg/dl Phosphorus (2.5-4.5) mg/dL Magnesium (1.6-2.3) mg/dL Ferritin ng/mL Total Bilirubin (0.2-1.3) mg/dL Direct Bilirubin (0.0-0.4) mg/dL AST (17-59) U/L ALT (21-72) U/L Alkaline Phosphatase (38-126) U/L Total Protein (6.3-8.3) g/dL Albumin (3.5-5.0) g/dL Globulin (2.2-3.9) gm/dL Albumin/Globulin Ratio (1.0-2.1) Vitamin B12 (239-931) pg/mL Vancomycin Trough (5.0-10.0) ug/mL 03/07/17 03/07/17 03/07/17 Range/Units 17:58 17:46 11:39 WBC (4.8-10.8) K/uL RBC (4.40-5.90) Mil/uL Hgb (12.0-18.0) g/dL Hct (35.0-51.0) % MCV (80.0-94.0) fL MCH (27.0-31.0) pg MCHC (33.0-37.0) g/dL RDW (11.5-14.5) % Plt Count (130-400) K/uL MPV (7.2-11.7) fL Neut % (Auto) (50.0-75.0) % Lymph % (Auto) (20.0-40.0) % [place] % (Auto) (0.0-10.0) % Eos % (Auto) (0.0-4.0) % Baso % (Auto) (0.0-2.0) % Neut # (1.8-7.0) K/uL Lymph # (1.0-4.3) K/uL [place] # (0.0-0.8) K/uL Eos # (0.0-0.7) K/uL Baso # (0.0-0.2) K/uL Neutrophils % (Manual) (50-75) % Band Neutrophils % (0-2) % Lymphocytes % (Manual) (20-40) % Monocytes % (Manual) (0-10) % Nucleated RBC % (0-0) % Platelet Estimate (NORMAL) Hypochromasia (manual) Poikilocytosis (manual Anisocytosis (manual) Tear Drop Cells Retic Count (0.5-1.5) % Puncture Site pCO2 (35-45) mm/Hg pO2 (80-100) mm/Hg HCO3 (21-28) mmol/L ABG pH (7.35-7.45) ABG Total CO2 (22-28) mmol/L ABG O2 Saturation (95-98) % ABG Base Excess (-2.0-3.0) mmol/L ABG Hemoglobin (11.7-17.4) g/dL ABG Carboxyhemoglobin (0.5-1.5) % POC ABG HHb (Measured) (0.0-5.0) % ABG Methemoglobin (0.0-3.0) % Reji Test A-a O2 Difference mm/Hg Respiratory Index Hgb O2 Saturation (95.0-98.0) % Vent Mode Mechanical Rate FiO2 % Tidal Volume PEEP Sodium (132-148) mmol/L Potassium (3.6-5.2) mmol/L Chloride (98-107) mmol/L Carbon Dioxide (22-30) mmol/L Anion Gap (10-20) BUN (9-20) mg/dL Creatinine (0.8-1.5) mg/dL Est GFR ( Amer) Est GFR (Non-Af Amer) POC Glucose (mg/dL) 193 H 183 H (65-110) mg/dL Random Glucose (75-110) mg/dL Calcium (8.6-10.4) mg/dl Phosphorus (2.5-4.5) mg/dL Magnesium (1.6-2.3) mg/dL Ferritin ng/mL Total Bilirubin (0.2-1.3) mg/dL Direct Bilirubin (0.0-0.4) mg/dL AST (17-59) U/L ALT (21-72) U/L Alkaline Phosphatase (38-126) U/L Total Protein (6.3-8.3) g/dL Albumin (3.5-5.0) g/dL Globulin (2.2-3.9) gm/dL Albumin/Globulin Ratio (1.0-2.1) Vitamin B12 (239-931) pg/mL Vancomycin Trough 27.4 H (5.0-10.0) ug/mL Laboratory Results - last 24 hr 03/07/17 03/07/17 03/07/17 11:39 17:46 17:58 WBC RBC Hgb Hct MCV MCH MCHC RDW Plt Count MPV Neut % (Auto) Lymph % (Auto) [place] % (Auto) Eos % (Auto) Baso % (Auto) Neut # Lymph # [place] # Eos # Baso # Neutrophils % (Manual) Band Neutrophils % Lymphocytes % (Manual) Monocytes % (Manual) Nucleated RBC % Platelet Estimate Hypochromasia (manual) Poikilocytosis (manual Anisocytosis (manual) Tear Drop Cells Retic Count Puncture Site pCO2 pO2 HCO3 ABG pH ABG Total CO2 ABG O2 Saturation ABG Base Excess ABG Hemoglobin ABG Carboxyhemoglobin POC ABG HHb (Measured) ABG Methemoglobin Reji Test A-a O2 Difference Respiratory Index Hgb O2 Saturation Vent Mode Mechanical Rate FiO2 Tidal Volume PEEP Sodium Potassium Chloride Carbon Dioxide Anion Gap BUN Creatinine Est GFR ( Amer) Est GFR (Non-Af Amer) POC Glucose (mg/dL) 183 H 193 H Random Glucose Calcium Phosphorus Magnesium Ferritin Total Bilirubin Direct Bilirubin AST ALT Alkaline Phosphatase Total Protein Albumin Globulin Albumin/Globulin Ratio Vitamin B12 Vancomycin Trough 27.4 H 03/07/17 03/08/17 03/08/17 23:52 05:11 05:36 WBC RBC Hgb Hct MCV MCH MCHC RDW Plt Count MPV Neut % (Auto) Lymph % (Auto) [place] % (Auto) Eos % (Auto) Baso % (Auto) Neut # Lymph # [place] # Eos # Baso # Neutrophils % (Manual) Band Neutrophils % Lymphocytes % (Manual) Monocytes % (Manual) Nucleated RBC % Platelet Estimate Hypochromasia (manual) Poikilocytosis (manual Anisocytosis (manual) Tear Drop Cells Retic Count Puncture Site R pCO2 38 pO2 170 H HCO3 28.5 H ABG pH 7.48 H ABG Total CO2 29.5 H ABG O2 Saturation 98.8 H ABG Base Excess 4.6 H ABG Hemoglobin 16.2 ABG Carboxyhemoglobin 1.2 POC ABG HHb (Measured) 1.2 ABG Methemoglobin 0.8 Reji Test Pos A-a O2 Difference 353.0 Respiratory Index 2.1 Hgb O2 Saturation 96.8 Vent Mode Prvc Mechanical Rate 18 FiO2 80.0 Tidal Volume 450 PEEP 8 Sodium Potassium Chloride Carbon Dioxide Anion Gap BUN Creatinine Est GFR ( Amer) Est GFR (Non-Af Amer) POC Glucose (mg/dL) 198 H 254 H Random Glucose Calcium Phosphorus Magnesium Ferritin Total Bilirubin Direct Bilirubin AST ALT Alkaline Phosphatase Total Protein Albumin Globulin Albumin/Globulin Ratio Vitamin B12 Vancomycin Trough 03/08/17 03/08/17 03/08/17 06:18 06:20 06:20 WBC 9.4 RBC 3.20 L Hgb 9.7 L Hct 28.7 L MCV 89.7 MCH 30.5 MCHC 34.0 RDW 15.8 H Plt Count 148 MPV 9.1 Neut % (Auto) 85.9 H Lymph % (Auto) 7.6 L [place] % (Auto) 5.9 Eos % (Auto) 0.3 Baso % (Auto) 0.3 Neut # 8.1 H Lymph # 0.7 L [place] # 0.6 Eos # 0.0 Baso # 0.0 Neutrophils % (Manual) 82 H Band Neutrophils % 1 Lymphocytes % (Manual) 10 L Monocytes % (Manual) 7 Nucleated RBC % 1 H Platelet Estimate Normal Hypochromasia (manual) Slight Poikilocytosis (manual Slight Anisocytosis (manual) Slight Tear Drop Cells Slight Retic Count 2.5 H Puncture Site pCO2 pO2 HCO3 ABG pH ABG Total CO2 ABG O2 Saturation ABG Base Excess ABG Hemoglobin ABG Carboxyhemoglobin POC ABG HHb (Measured) ABG Methemoglobin Reji Test A-a O2 Difference Respiratory Index Hgb O2 Saturation Vent Mode Mechanical Rate FiO2 Tidal Volume PEEP Sodium 140 Potassium 3.7 Chloride 97 L Carbon Dioxide 28 Anion Gap 19 BUN 64 H Creatinine 3.0 H Est GFR ( Amer) 27 Est GFR (Non-Af Amer) 22 POC Glucose (mg/dL) Random Glucose 230 H Calcium 7.6 L Phosphorus 6.6 H Magnesium 1.8 Ferritin 1180.0 Total Bilirubin 1.3 Direct Bilirubin 0.7 H AST 86 H D ALT 115 H D Alkaline Phosphatase 103 Total Protein 7.2 Albumin 3.1 L Globulin 4.1 H Albumin/Globulin Ratio 0.8 L Vitamin B12 348 Vancomycin Trough Fingerstick Blood Sugar Results: 254 Review of Systems - Review of Systems Systems not reviewed;Unavailable: Intubated Assessment/Plan - Assessment and Plan (Free Text) Assessment: 52 y/o M with pmhx of HTN, DM II, kidney disease, who was brought to the ED after he collapsed in ED at home and was found in asystole. Patient given 3 doses of epi and CPR for 15 minutes then ROSC. Patient intubated in the field. Patient went into cardiac arrest twice more in the ICU. Neuro: Intubated, altered mental status Medication and Management: * Ativan 1 mg q2h PRN seizure activitiy * Keppra 500 mg q12h * Dr. Rascon consulted, help appreciated Imaging: Head CT (03/04): chronic microvascular ischemic changes, no acute intracranial hemorrhage EEG (03/05/17): periodic paroxysmal activities lasting about 2-3 seconds with intermittent burst suppression suggestive of status epileptiform activities. Head CT (03/06/17): nonspecific white matter changes f/u EEG (03/07/17) Pulm: Respiratory distress secondary to cardiac arrest Medication and Management * Patient intubated * Lasix d/c * gipson to measure urine output * Propofol 5mcg/kg/min Imaging: Chest X-ray (03/07/17): Minimal left pleural effusion, CHF improving Cardio: s/p cardiac arrest Medication and management: * Off of pressors * Dr. Tate consulted, help appreciated * Echo (03/04/17): LVEF:42, mild to moderate LV systolic dysfunction. Normal chamber size. Trace MR and TR. Trace pericardial effusion. Pleural effusion. Heme: anemia Medication and management: * 03/06/17: HgB/Hct: 7/20.6, transfused 2 u PRBCs * 03/07/17: HgB/ Hct: 9.6/28.2 Endo: DM II Medication and management: * Regular ISS- increased to high on 03/08 * accucheck q6h * HgA1C: 9.4 Renal: acute vs chronic kidney disease Medication and management: * Lasix d/c on 03/08 * f/u recommendation as per Dr. Charles * K+ 7.0 on 03/05, 1 amp Ca Gluconate, 1 amp bicarb, duonebs, solumedrol 40 BID given * K+ repeat 6.6, repeat of 1 amp Ca Gluconate, 1 amp bicarb, duonebs, and Kayexalate once at 6pm and once at 10pm * 03/06: K+: 4.5 * 03/07: K+ stable, BUN/Cr: 62/2.9 MSK: right foot wound secondary to first metatarsal amputation Medication and management: * Wound care * Dr. Guzman, podiatry, consulted- help appreciated ID: Medication and management: * Vanco decreased to 500 daily on 03/08 * Zosyn * MRSA in nose * Urine culture (-) * blood culture (-) * Dr. Shore consulted, help appreciated * PICC tomorrow Prophylaxis: DVT: Heparin 5,000 u sc q8h GI: Protonix 40 mg IVP daily glucerna feeds at 35ml/hr, 100 cc free water flushes q6h
--- NOTE | 2017-03-08 09:55 | CP.PCM.PN ---
Subjective - Date & Time of Evaluation Date of Evaluation: 03/08/17 Time of Evaluation: 09:52 - Subjective Subjective: Same poor responsiveness; does not track commands UO excellent still. Creat minimally increased- 3.0 phos remains elevated Objective - Vital Signs/Intake and Output Vital Signs (last 24 hours): Temp Pulse Resp BP Pulse Ox 98.3 F 112 H 26 H 119/69 100 03/08/17 08:00 03/08/17 08:02 03/08/17 08:02 03/08/17 08:02 03/08/17 08:02 Intake and Output: 03/08/17 03/08/17 06:59 18:59 Intake Total 931.4 110 Output Total 1405 135 Balance -473.6 -25 - Medications Medications: Current Medications Acetaminophen (Tylenol 650mg/20.3ml Solution Ud) 650 mg PO Q4 PRN PRN Reason: temp >101 Last Admin: 03/07/17 20:30 Dose: 650 mg Albuterol/Ipratropium (Duoneb 3 Mg/0.5 Mg (3 Ml) Ud) 3 ml INH RQ6 [facility] Last Admin: 03/08/17 07:16 Dose: 3 ml Artificial Tears (Lacri-Lube) 0 gm OS Q4H PRN PRN Reason: Other Last Admin: 03/06/17 14:23 Dose: 3.5 gm Heparin Sodium (Porcine) (Heparin) 5,000 units SC Q8 [facility] Last Admin: 03/08/17 05:43 Dose: 5,000 units Piperacillin Sod/Tazobactam Sod (Zosyn 2.25 Gm Iv Premix) 2.25 gm in 50 mls @ 100 mls/hr IVPB Q6H [facility] Last Admin: 03/08/17 09:07 Dose: 100 mls/hr Levetiracetam 500 mg/ Sodium (Chloride) 105 mls @ 420 mls/hr IVPB Q12H [facility] Last Admin: 03/08/17 02:46 Dose: 420 mls/hr Azithromycin 500 mg/ Sodium (Chloride) 250 mls @ 250 mls/hr IVPB DAILY [facility] Last Admin: 03/07/17 10:14 Dose: 250 mls/hr Propofol (Diprivan) 1,000 mg in 100 mls @ 2.436 mls/hr IV .Q24H PRN; Protocol; 5 MCG/KG/MIN PRN Reason: TITRATE PER MD ORDER Last Titration: 03/08/17 07:30 Dose: 0 mcg/kg/min, 0 mls/hr Vancomycin HCl 500 mg/ Sodium (Chloride) 100 mls @ 100 mls/hr IVPB DAILY [facility] Insulin Human Regular (Novolin R) 0 unit SC Q6 [facility] PRN Reason: Protocol Lorazepam (Ativan) 1 mg IVP Q2H PRN PRN Reason: Seizure activity Last Admin: 03/08/17 08:05 Dose: 1 mg Pantoprazole Sodium (Protonix Inj) 40 mg IVP DAILY [facility] Last Admin: 03/07/17 10:13 Dose: 40 mg - Labs Labs: 03/08/17 06:20 03/08/17 06:18 PT 15.6 SECONDS (9.7-12.2) H 03/04/17 19:55 INR 1.4 03/04/17 19:55 APTT 31 SECONDS (21-34) 03/04/17 19:55 - Constitutional Appears: No Acute Distress, Chronically Ill - Head Exam Head Exam: ATRAUMATIC, NORMAL INSPECTION - Neck Exam Neck Exam: Normal Inspection. absent: Tenderness - Cardiovascular Exam Cardiovascular Exam: REGULAR RHYTHM, +S1 - GI/Abdominal Exam GI & Abdominal Exam: Soft. absent: Tenderness - Extremities Exam Extremities Exam: Normal Inspection. absent: Pedal Edema, Tenderness - Neurological Exam Neurological Exam: Altered, Motor Sensory Deficit - Skin Skin Exam: Dry, Warm Assessment and Plan (1) SAUNDRA (acute kidney injury) Status: Acute (2) CHF (congestive heart failure) Status: Acute (3) Cardiac arrest Status: Acute (4) Open wound of right foot with complication Status: Acute (5) Respiratory failure Status: Acute - Assessment and Plan (Free Text) Plan: Monitor renal function, lytes Add phoslo
[2017-03-08] MEDS: Azithromycin 500 MG in Sodium Chloride 0.9% 250 ML IVPB SCH (10:04)
[2017-03-08 10:30] LABS: FOLATE 8.5 ng/mL
[2017-03-08] MEDS: Acetaminophen 650mg/20.3ml solution UD PO PRN ×2 (12:18→16:25)
[2017-03-08] MEDS: Vancomycin 500mg/D5W 100 ml 500 MG/100 ML BAG IVPB SCH (12:18)
--- NOTE | 2017-03-08 12:25 | NM ---
PROCEDURE: Radionuclide brain study HISTORY: ASSESS CEREBRAL PERFUSION COMPARISON: None TECHNIQUE: Standard protocol for this study/examination. 22.6 mCi technetium 99 M DTPA bolus injection antecubital fossa. FINDINGS: The bolus is deemed technically adequate, optimal. Flow identified over the convexities in the superior sagittal and transverse sinuses. IMPRESSION: Scintigraphic criteria for brain NOT established on the current examination.
--- NOTE | 2017-03-08 17:22 | CP.PCM.CON ---
History of Present Illness - History of Present Illness History of Present Illness: Surgery: Dr. Koehler CC: Respiratory failure HPI: Hx gathered from review of medical record. 52M w. pmh of HTN, DMII, and CKD presented to ED on 03/04 in cardiac arrest. Pt was admitted to ICU where he underwent 2 additional episodes of cardiac arrest. Pt currently has severe anoxic brain injury and is on vent and will likely need trach placement, for which surgery has been consulted. PMH: HTN, DM II, Kidney disease PSH: Right great toe amputation Meds: MAR reviewed NKDA Social Hx: No ETOH/tobacco/drugs FHx: Unknown Review of Systems - Review of Systems Systems not reviewed;Unavailable: Acuity of Condition Past Patient History - Past Medical History & Family History Past Medical History?: Yes - Past Social History Smoking Status: UNKNOWN Chewing Tobacco Use: No Cigar Use: No Alcohol: None Drugs: Denies Home Situation {Lives}: Alone - CARDIAC Hx Hypertension: Yes - PULMONARY Hx Respiratory Disorders: No - NEUROLOGICAL Hx Neurological Disorder: No - HEENT Hx HEENT Problems: No - RENAL Hx Chronic Kidney Disease: Yes Hx Renal Failure: Yes - ENDOCRINE/METABOLIC Hx Endocrine Disorders: Yes Hx Diabetes Mellitus Type 2: Yes - INTEGUMENTARY Hx Dermatological Problems: Yes - MUSCULOSKELETAL/RHEUMATOLOGICAL Hx Musculoskeletal Disorders: No - GASTROINTESTINAL Hx Gastrointestinal Disorders: No - GENITOURINARY/GYNECOLOGICAL Hx Genitourinary Disorders: No - PSYCHIATRIC Hx Substance Use: No - SURGICAL HISTORY Other/Comment: Great toe left foot amputated - ANESTHESIA Hx Anesthesia: Yes (UNABLE TO OBTAIN) Hx Anesthesia Reactions: No Meds Allergies/Adverse Reactions: Allergies Allergy/AdvReac Type Severity Reaction Status Date / Time Unobtainable Allergy Verified 03/04/17 20:17 - Medications Medications: Current Medications Acetaminophen (Tylenol 650mg/20.3ml Solution Ud) 650 mg PO Q4 PRN PRN Reason: temp >101 Last Admin: 03/08/17 16:25 Dose: 650 mg Albuterol/Ipratropium (Duoneb 3 Mg/0.5 Mg (3 Ml) Ud) 3 ml INH RQ6 [facility] Last Admin: 03/08/17 13:24 Dose: 3 ml Artificial Tears (Lacri-Lube) 0 gm OS Q4H PRN PRN Reason: Other Last Admin: 03/06/17 14:23 Dose: 3.5 gm Calcium Acetate (Phoslo) 667 mg GT TIDCC [facility] Last Admin: 03/08/17 17:04 Dose: 667 mg Heparin Sodium (Porcine) (Heparin) 5,000 units SC Q8 [facility] Last Admin: 03/08/17 13:23 Dose: 5,000 units Piperacillin Sod/Tazobactam Sod (Zosyn 2.25 Gm Iv Premix) 2.25 gm in 50 mls @ 100 mls/hr IVPB Q6H [facility] Last Admin: 03/08/17 14:45 Dose: 100 mls/hr Azithromycin 500 mg/ Sodium (Chloride) 250 mls @ 250 mls/hr IVPB DAILY [facility] Last Admin: 03/08/17 10:04 Dose: 250 mls/hr Propofol (Diprivan) 1,000 mg in 100 mls @ 2.436 mls/hr IV .Q24H PRN; Protocol; 5 MCG/KG/MIN PRN Reason: TITRATE PER MD ORDER Last Titration: 03/08/17 07:30 Dose: 0 mcg/kg/min, 0 mls/hr Vancomycin HCl/Dextrose (Vancocin) 500 mg in 100 mls @ 100 mls/hr IVPB DAILY [facility] Stop: 03/13/17 10:01 Last Admin: 03/08/17 12:18 Dose: 100 mls/hr Levetiracetam 500 mg/ Dextrose 105 mls @ 420 mls/hr IVPB Q12H [facility] Last Admin: 03/08/17 14:11 Dose: 420 mls/hr Insulin Human Regular (Novolin R) 0 unit SC Q6 [facility] PRN Reason: Protocol Last Admin: 03/08/17 12:19 Dose: 4 unit Lorazepam (Ativan) 1 mg IVP Q2H PRN PRN Reason: Seizure activity Last Admin: 03/08/17 08:05 Dose: 1 mg Pantoprazole Sodium (Protonix Inj) 40 mg IVP DAILY [facility] Last Admin: 03/08/17 10:04 Dose: 40 mg Physical Exam - Constitutional Appears: Chronically Ill - Head Exam Head Exam: ATRAUMATIC, NORMOCEPHALIC - ENT Exam ENT Exam: Mucous Membranes Moist - Respiratory Exam Additional comments: intubated on vent - GI/Abdominal Exam GI & Abdominal Exam: Soft. absent: Distended, Firm, Guarding, Rebound, Rigid, Tenderness - Extremities Exam Extremities exam: Negative for: calf tenderness, pedal edema Results - Vital Signs Recent Vital Signs: Last Vital Signs Temp 101.8 F H 03/08/17 16:00 Pulse 98 H 03/08/17 17:02 Resp 17 03/08/17 17:02 BP 112/60 03/08/17 17:02 Pulse Ox 99 03/08/17 17:02 - Labs Result Diagrams: 03/08/17 06:20 03/08/17 06:18 Labs: Laboratory Results - last 24 hr 03/07/17 03/07/17 03/07/17 17:46 17:58 23:52 WBC RBC Hgb Hct MCV MCH MCHC RDW Plt Count MPV Neut % (Auto) Lymph % (Auto) [place] % (Auto) Eos % (Auto) Baso % (Auto) Neut # Lymph # [place] # Eos # Baso # Neutrophils % (Manual) Band Neutrophils % Lymphocytes % (Manual) Monocytes % (Manual) Nucleated RBC % Platelet Estimate Hypochromasia (manual) Poikilocytosis (manual Anisocytosis (manual) Tear Drop Cells Retic Count Puncture Site pCO2 pO2 HCO3 ABG pH ABG Total CO2 ABG O2 Saturation ABG Base Excess ABG Hemoglobin ABG Carboxyhemoglobin POC ABG HHb (Measured) ABG Methemoglobin Reji Test A-a O2 Difference Respiratory Index Hgb O2 Saturation Vent Mode Mechanical Rate FiO2 Tidal Volume PEEP Sodium Potassium Chloride Carbon Dioxide Anion Gap BUN Creatinine Est GFR ( Amer) Est GFR (Non-Af Amer) POC Glucose (mg/dL) 193 H 198 H Random Glucose Calcium Phosphorus Magnesium Ferritin Total Bilirubin Direct Bilirubin AST ALT Alkaline Phosphatase Total Protein Albumin Globulin Albumin/Globulin Ratio Vitamin B12 Folate Vancomycin Trough 27.4 H 03/08/17 03/08/17 03/08/17 05:11 05:36 06:18 WBC RBC Hgb Hct MCV MCH MCHC RDW Plt Count MPV Neut % (Auto) Lymph % (Auto) [place] % (Auto) Eos % (Auto) Baso % (Auto) Neut # Lymph # [place] # Eos # Baso # Neutrophils % (Manual) Band Neutrophils % Lymphocytes % (Manual) Monocytes % (Manual) Nucleated RBC % Platelet Estimate Hypochromasia (manual) Poikilocytosis (manual Anisocytosis (manual) Tear Drop Cells Retic Count Puncture Site R pCO2 38 pO2 170 H HCO3 28.5 H ABG pH 7.48 H ABG Total CO2 29.5 H ABG O2 Saturation 98.8 H ABG Base Excess 4.6 H ABG Hemoglobin 16.2 ABG Carboxyhemoglobin 1.2 POC ABG HHb (Measured) 1.2 ABG Methemoglobin 0.8 Reji Test Pos A-a O2 Difference 353.0 Respiratory Index 2.1 Hgb O2 Saturation 96.8 Vent Mode Prvc Mechanical Rate 18 FiO2 80.0 Tidal Volume 450 PEEP 8 Sodium 140 Potassium 3.7 Chloride 97 L Carbon Dioxide 28 Anion Gap 19 BUN 64 H Creatinine 3.0 H Est GFR ( Amer) 27 Est GFR (Non-Af Amer) 22 POC Glucose (mg/dL) 254 H Random Glucose 230 H Calcium 7.6 L Phosphorus 6.6 H Magnesium 1.8 Ferritin 1180.0 Total Bilirubin 1.3 Direct Bilirubin 0.7 H AST 86 H D ALT 115 H D Alkaline Phosphatase 103 Total Protein 7.2 Albumin 3.1 L Globulin 4.1 H Albumin/Globulin Ratio 0.8 L Vitamin B12 348 Folate 8.5 Vancomycin Trough 03/08/17 03/08/17 03/08/17 06:20 06:20 11:54 WBC 9.4 RBC 3.20 L Hgb 9.7 L Hct 28.7 L MCV 89.7 MCH 30.5 MCHC 34.0 RDW 15.8 H Plt Count 148 MPV 9.1 Neut % (Auto) 85.9 H Lymph % (Auto) 7.6 L [place] % (Auto) 5.9 Eos % (Auto) 0.3 Baso % (Auto) 0.3 Neut # 8.1 H Lymph # 0.7 L [place] # 0.6 Eos # 0.0 Baso # 0.0 Neutrophils % (Manual) 82 H Band Neutrophils % 1 Lymphocytes % (Manual) 10 L Monocytes % (Manual) 7 Nucleated RBC % 1 H Platelet Estimate Normal Hypochromasia (manual) Slight Poikilocytosis (manual Slight Anisocytosis (manual) Slight Tear Drop Cells Slight Retic Count 2.5 H Puncture Site pCO2 pO2 HCO3 ABG pH ABG Total CO2 ABG O2 Saturation ABG Base Excess ABG Hemoglobin ABG Carboxyhemoglobin POC ABG HHb (Measured) ABG Methemoglobin Reji Test A-a O2 Difference Respiratory Index Hgb O2 Saturation Vent Mode Mechanical Rate FiO2 Tidal Volume PEEP Sodium Potassium Chloride Carbon Dioxide Anion Gap BUN Creatinine Est GFR ( Amer) Est GFR (Non-Af Amer) POC Glucose (mg/dL) 210 H Random Glucose Calcium Phosphorus Magnesium Ferritin Total Bilirubin Direct Bilirubin AST ALT Alkaline Phosphatase Total Protein Albumin Globulin Albumin/Globulin Ratio Vitamin B12 Folate Vancomycin Trough Assessment & Plan - Assessment and Plan (Free Text) Assessment: 52M s/p cardiac arrest, with severe anoxic brain injury and respiratory failure requiring trach placement -Family wants to discuss treatment options and will have a decision by the end of the weekend regard trach/peg vs. withdrawal of care -will continue to follow -d/w attending Lenin PGY3
--- NOTE | 2017-03-08 18:00 | PN ---
DATE: LOCATION: ICU 17. SUBJECTIVE: This is a 52-year-old male seen initially for GI consultation on 03/07/2017, re-examined again today, still intubated with NG tube feedings. Entire chart is reviewed including, but not limited to the most recent lab and radiology study results, current and the previous medication list, current and the previous medical events. LABORATORY DATA: Today's lab showed hemoglobin 9.7, hematocrit 28.7 with normal platelet count and abnormal ABG's with blood glucose level 210, BUN increased to 64, creatinine 3.0, low calcium, with increased AST and ALT, but low albumin 3.1. It has to be mentioned that the case discussed at length with Dr. Koehler today and the patient will need tracheostomy, then subsequently PEG insertion. IMPRESSION: 1. Malnutrition with hypoalbuminemia. 2. Anemia. 3. failure with status post intubation. 4. Electrolyte imbalance. SUGGESTIONS: 1. Continue current management. 2. We will schedule the patient for PEG insertion post tracheostomy. 3. The patient is more stable clinically. Yola Sim MD cc: Yola Sim MD
--- NOTE | 2017-03-08 18:36 | CP.PCM.PN ---
Subjective - Date & Time of Evaluation Date of Evaluation: 03/08/17 Time of Evaluation: 13:40 - Subjective Subjective: clinically same Objective - Vital Signs/Intake and Output Vital Signs (last 24 hours): Temp Pulse Resp BP Pulse Ox 101.8 F H 99 H 21 114/67 99 03/08/17 16:00 03/08/17 18:02 03/08/17 18:02 03/08/17 18:02 03/08/17 18:02 Intake and Output: 03/08/17 03/08/17 06:59 18:59 Intake Total 931.4 1210 Output Total 1405 1100 Balance -473.6 110 - Medications Medications: Current Medications Acetaminophen (Tylenol 650mg/20.3ml Solution Ud) 650 mg PO Q4 PRN PRN Reason: temp >101 Last Admin: 03/08/17 16:25 Dose: 650 mg Albuterol/Ipratropium (Duoneb 3 Mg/0.5 Mg (3 Ml) Ud) 3 ml INH RQ6 [facility] Last Admin: 03/08/17 13:24 Dose: 3 ml Artificial Tears (Lacri-Lube) 0 gm OS Q4H PRN PRN Reason: Other Last Admin: 03/06/17 14:23 Dose: 3.5 gm Calcium Acetate (Phoslo) 667 mg GT TIDCC [facility] Last Admin: 03/08/17 17:04 Dose: 667 mg Heparin Sodium (Porcine) (Heparin) 5,000 units SC Q8 [facility] Last Admin: 03/08/17 13:23 Dose: 5,000 units Piperacillin Sod/Tazobactam Sod (Zosyn 2.25 Gm Iv Premix) 2.25 gm in 50 mls @ 100 mls/hr IVPB Q6H [facility] Last Admin: 03/08/17 14:45 Dose: 100 mls/hr Azithromycin 500 mg/ Sodium (Chloride) 250 mls @ 250 mls/hr IVPB DAILY [facility] Last Admin: 03/08/17 10:04 Dose: 250 mls/hr Vancomycin HCl/Dextrose (Vancocin) 500 mg in 100 mls @ 100 mls/hr IVPB DAILY [facility] Stop: 03/13/17 10:01 Last Admin: 03/08/17 12:18 Dose: 100 mls/hr Levetiracetam 500 mg/ Dextrose 105 mls @ 420 mls/hr IVPB Q12H [facility] Last Admin: 03/08/17 14:11 Dose: 420 mls/hr Insulin Human Regular (Novolin R) 0 unit SC Q6 [facility] PRN Reason: Protocol Last Admin: 03/08/17 17:55 Dose: 6 unit Lorazepam (Ativan) 1 mg IVP Q2H PRN PRN Reason: Seizure activity Last Admin: 03/08/17 18:00 Dose: 1 mg Pantoprazole Sodium (Protonix Inj) 40 mg IVP DAILY [facility] Last Admin: 03/08/17 10:04 Dose: 40 mg - Labs Labs: 03/08/17 06:20 03/08/17 06:18 PT 15.6 SECONDS (9.7-12.2) H 03/04/17 19:55 INR 1.4 03/04/17 19:55 APTT 31 SECONDS (21-34) 03/04/17 19:55 - Constitutional Appears: Well - Head Exam Head Exam: ATRAUMATIC, NORMAL INSPECTION, NORMOCEPHALIC - Eye Exam Eye Exam: EOMI, Normal appearance, PERRL Pupil Exam: NORMAL ACCOMODATION, PERRL - ENT Exam ENT Exam: Mucous Membranes Moist, Normal Exam - Neck Exam Neck Exam: Full ROM, Normal Inspection. absent: Lymphadenopathy - Respiratory Exam Respiratory Exam: Clear to Ausculation Bilateral, NORMAL BREATHING PATTERN - Cardiovascular Exam Cardiovascular Exam: REGULAR RHYTHM, +S1, +S2. absent: Murmur - GI/Abdominal Exam GI & Abdominal Exam: Soft, Normal Bowel Sounds. absent: Tenderness - Rectal Exam Rectal Exam: NORMAL INSPECTION - Exam Exam: Circumcision, NORMAL INSPECTION External exam: NORMAL EXTERNAL EXAM Speculum exam: NORMAL SPECULUM EXAM Bimanual exam: NORMAL BIMANUAL EXAM - Extremities Exam Extremities Exam: Full ROM, Normal Capillary Refill, Normal Inspection. absent : Joint Swelling, Pedal Edema - Back Exam Back Exam: NORMAL INSPECTION - Skin Skin Exam: Dry, Intact, Normal Color, Warm Assessment and Plan (1) Anemia Status: Acute (2) Anoxic encephalopathy Status: Acute (3) Anoxic encephalopathy Status: Acute (4) CHF (congestive heart failure) Status: Acute (5) Cardiac arrest Status: Acute (6) Coagulopathy Status: Acute (7) Open wound of right foot with complication Status: Acute (8) Respiratory failure Status: Acute (9) SAUNDRA (acute kidney injury) Status: Resolved - Assessment and Plan (Free Text) Plan: Patient examined. Surgical consult done. Patient's family wanted to discuss treatment options and will be contour decision by the end of the week regarding tracheostomy/PEG versus withdrawal of care. Patient still unresponsive. Creat minimally increased at 3.0. Close monitoring of renal function. Continue piperacillin tazobactam, azithromycin, vancomycin. Continue supportive care.
--- NOTE | 2017-03-08 21:02 | CP.PCM.PN ---
Subjective - Date & Time of Evaluation Date of Evaluation: 03/08/17 Time of Evaluation: 20:00 - Subjective Subjective: Vented Objective - Vital Signs/Intake and Output Vital Signs (last 24 hours): Temp Pulse Resp BP Pulse Ox 101.8 F H 89 18 108/64 100 03/08/17 16:00 03/08/17 19:02 03/08/17 19:02 03/08/17 19:02 03/08/17 19:02 Intake and Output: 03/08/17 03/09/17 18:59 06:59 Intake Total 1210 35 Output Total 1100 50 Balance 110 -15 - Medications Medications: Current Medications Acetaminophen (Tylenol 650mg/20.3ml Solution Ud) 650 mg PO Q4 PRN PRN Reason: temp >101 Last Admin: 03/08/17 16:25 Dose: 650 mg Albuterol/Ipratropium (Duoneb 3 Mg/0.5 Mg (3 Ml) Ud) 3 ml INH RQ6 [facility] Last Admin: 03/08/17 19:59 Dose: 3 ml Artificial Tears (Lacri-Lube) 0 gm OS Q4H PRN PRN Reason: Other Last Admin: 03/06/17 14:23 Dose: 3.5 gm Calcium Acetate (Phoslo) 667 mg GT TIDCC [facility] Last Admin: 03/08/17 17:04 Dose: 667 mg Heparin Sodium (Porcine) (Heparin) 5,000 units SC Q8 [facility] Last Admin: 03/08/17 13:23 Dose: 5,000 units Piperacillin Sod/Tazobactam Sod (Zosyn 2.25 Gm Iv Premix) 2.25 gm in 50 mls @ 100 mls/hr IVPB Q6H [facility] Last Admin: 03/08/17 14:45 Dose: 100 mls/hr Azithromycin 500 mg/ Sodium (Chloride) 250 mls @ 250 mls/hr IVPB DAILY [facility] Last Admin: 03/08/17 10:04 Dose: 250 mls/hr Vancomycin HCl/Dextrose (Vancocin) 500 mg in 100 mls @ 100 mls/hr IVPB DAILY [facility] Stop: 03/13/17 10:01 Last Admin: 03/08/17 12:18 Dose: 100 mls/hr Levetiracetam 500 mg/ Dextrose 105 mls @ 420 mls/hr IVPB Q12H [facility] Last Admin: 03/08/17 14:11 Dose: 420 mls/hr Insulin Human Regular (Novolin R) 0 unit SC Q6 [facility] PRN Reason: Protocol Last Admin: 03/08/17 17:55 Dose: 6 unit Lorazepam (Ativan) 1 mg IVP Q2H PRN PRN Reason: Seizure activity Last Admin: 03/08/17 18:00 Dose: 1 mg Pantoprazole Sodium (Protonix Inj) 40 mg IVP DAILY [facility] Last Admin: 03/08/17 10:04 Dose: 40 mg - Labs Labs: 03/08/17 06:20 03/08/17 06:18 PT 15.6 SECONDS (9.7-12.2) H 03/04/17 19:55 INR 1.4 03/04/17 19:55 APTT 31 SECONDS (21-34) 03/04/17 19:55 - Head Exam Head Exam: ATRAUMATIC - Eye Exam Eye Exam: Normal appearance - ENT Exam ENT Exam: Mucous Membranes Dry - Respiratory Exam Respiratory Exam: NORMAL BREATHING PATTERN - Cardiovascular Exam Cardiovascular Exam: +S1, +S2 - GI/Abdominal Exam GI & Abdominal Exam: Normal Bowel Sounds - Extremities Exam Additional comments: right foot dressing Assessment and Plan (1) Anemia Assessment & Plan: anemia of chronic disease ?anemia of CKD s/p PRBC transfusion Status: Acute (2) Coagulopathy Assessment & Plan: nutritional Status: Acute
[2017-03-09] MEDS: Acetaminophen 650mg/20.3ml solution UD PO PRN ×2 (00:04→12:22)
[2017-03-09] MEDS: (Novolin R) Insulin Human Regular 100 units/ml vial SC SCH ×4 (00:07→18:09)
[2017-03-09] MEDS: Albuterol-Ipratrop 3 mg / 0.5 (3 ml) UD INH SCH ×4 (01:27→19:16)
[2017-03-09 02:23] LABS: TOTAL PROTEIN, SERUM 6.1 g/dL (6.1-8.1)
[2017-03-09] MEDS: Piperacill/Tazo 2.25gm in Dex 2.25 GM/50 ML BAG IVPB SCH ×4 (03:06→21:30)
[2017-03-09 05:38] LABS: ABG ALLEN TEST POS; ABG MECHANICAL RATE 16; ARTERIAL BLOOD GAS MODE PRVC; ARTERIAL BLOOD HGB O2 SAT 91.7 % (95.0-98.0); ATERIAL BLOOD GAS PEEP 5; CARBOXYHEMOGLOBIN 1.8 % (0.5-1.5); DRAW SITE RR; HHB 5.8 % (0.0-5.0); METHEMOGLOBIN 0.7 % (0.0-3.0)
[2017-03-09 07:13] LABS: BASO % 0.4 % (0.0-2.0); EOS % 0.4 % (0.0-4.0); HEMATOCRIT 28.9 % (35.0-51.0); LYMPH # 0.9 K/uL (1.0-4.3); LYMPH % 9.9 % (20.0-40.0); MEAN CELL VOLUME 90.6 fL (80.0-94.0); MEAN CORPUSCULAR HEMOGLOBIN 30.5 pg (27.0-31.0); MEAN CORPUSCULAR HGB CONC 33.6 g/dL (33.0-37.0); MEAN PLATELET VOLUME 9.1 fL (7.2-11.7); MONO # 0.6 K/uL (0.0-0.8); MONO % 6.7 % (0.0-10.0); PLATELET COUNT 135 K/uL (130-400); RED CELL DISTRIBUTION WIDTH 15.9 % (11.5-14.5); WHITE BLOOD COUNT 8.8 K/uL (4.8-10.8)
[2017-03-09 07:22] LABS: POTASSIUM 3.6 mmol/L (3.6-5.2)
[2017-03-09 07:24] LABS: BILIRUBIN,TOTAL 1.1 mg/dL (0.2-1.3); TOTAL PROTEIN 6.6 g/dL (6.3-8.3)
[2017-03-09 07:25] LABS: CALCIUM 7.2 mg/dl (8.6-10.4); MAGNESIUM 1.9 mg/dL (1.6-2.3); PHOSPHOROUS 5.3 mg/dL (2.5-4.5)
[2017-03-09 08:23] LABS: EOSINOPHIL 1 % (0-4); NEUTROPHIL 79 % (50-75); TOTAL CELLS COUNTED 100
--- NOTE | 2017-03-09 08:30 | CP.PCM.CON ---
<Uriel Guzman - Last Filed: 03/09/17 08:27> History of Present Illness - History of Present Illness History of Present Illness: 52 year old male seen for wound care for hallux amp site which is open wound . Review of Systems - Constitutional Constitutional: As Per HPI - EENT Eyes: As Per HPI Nose/Mouth/Throat: As Per HPI - Cardiovascular Cardiovascular: As Per HPI - Respiratory Respiratory: As Per HPI - Gastrointestinal Gastrointestinal: As Per HPI - Genitourinary Genitourinary: As Per HPI - Musculoskeletal Musculoskeletal: As Per HPI - Integumentary Integumentary: As Per HPI - Neurological Neurological: As Per HPI - Endocrine Endocrine: As Per HPI Past Patient History - Past Medical History & Family History Past Medical History?: Yes - Past Social History Smoking Status: UNKNOWN Chewing Tobacco Use: No Cigar Use: No Alcohol: None Drugs: Denies Home Situation {Lives}: Alone - CARDIAC Hx Hypertension: Yes - PULMONARY Hx Respiratory Disorders: No - NEUROLOGICAL Hx Neurological Disorder: No - HEENT Hx HEENT Problems: No - RENAL Hx Chronic Kidney Disease: Yes Hx Renal Failure: Yes - ENDOCRINE/METABOLIC Hx Endocrine Disorders: Yes Hx Diabetes Mellitus Type 2: Yes - INTEGUMENTARY Hx Dermatological Problems: Yes - MUSCULOSKELETAL/RHEUMATOLOGICAL Hx Musculoskeletal Disorders: No - GASTROINTESTINAL Hx Gastrointestinal Disorders: No - GENITOURINARY/GYNECOLOGICAL Hx Genitourinary Disorders: No - PSYCHIATRIC Hx Substance Use: No - SURGICAL HISTORY Other/Comment: Great toe left foot amputated - ANESTHESIA Hx Anesthesia: Yes (UNABLE TO OBTAIN) Hx Anesthesia Reactions: No Meds Allergies/Adverse Reactions: Allergies Allergy/AdvReac Type Severity Reaction Status Date / Time Unobtainable Allergy Verified 03/04/17 20:17 - Medications Medications: Current Medications Acetaminophen (Tylenol 650mg/20.3ml Solution Ud) 650 mg PO Q4 PRN PRN Reason: temp >101 Last Admin: 03/09/17 00:04 Dose: 650 mg Albuterol/Ipratropium (Duoneb 3 Mg/0.5 Mg (3 Ml) Ud) 3 ml INH RQ6 [facility] Last Admin: 03/09/17 07:12 Dose: 3 ml Artificial Tears (Lacri-Lube) 0 gm OS Q4H PRN PRN Reason: Other Last Admin: 03/06/17 14:23 Dose: 3.5 gm Calcium Acetate (Phoslo) 667 mg GT TIDCC [facility] Last Admin: 03/08/17 17:04 Dose: 667 mg Heparin Sodium (Porcine) (Heparin) 5,000 units SC Q8 [facility] Last Admin: 03/09/17 05:12 Dose: 5,000 units Piperacillin Sod/Tazobactam Sod (Zosyn 2.25 Gm Iv Premix) 2.25 gm in 50 mls @ 100 mls/hr IVPB Q6H [facility] Last Admin: 03/09/17 03:06 Dose: 100 mls/hr Azithromycin 500 mg/ Sodium (Chloride) 250 mls @ 250 mls/hr IVPB DAILY [facility] Last Admin: 03/08/17 10:04 Dose: 250 mls/hr Vancomycin HCl/Dextrose (Vancocin) 500 mg in 100 mls @ 100 mls/hr IVPB DAILY [facility] Stop: 03/13/17 10:01 Last Admin: 03/08/17 12:18 Dose: 100 mls/hr Levetiracetam 500 mg/ Dextrose 105 mls @ 420 mls/hr IVPB Q12H [facility] Last Admin: 03/09/17 01:49 Dose: 420 mls/hr Insulin Human Regular (Novolin R) 0 unit SC Q6 [facility] PRN Reason: Protocol Last Admin: 03/09/17 05:24 Dose: 2 unit Lorazepam (Ativan) 1 mg IVP Q2H PRN PRN Reason: Seizure activity Last Admin: 03/09/17 05:13 Dose: 1 mg Pantoprazole Sodium (Protonix Inj) 40 mg IVP DAILY [facility] Last Admin: 03/08/17 10:04 Dose: 40 mg Results - Vital Signs Recent Vital Signs: Last Vital Signs Temp 98.9 F 03/09/17 04:00 Pulse 103 H 03/09/17 07:01 Resp 21 03/09/17 07:01 BP 111/69 03/09/17 07:01 Pulse Ox 98 03/09/17 07:01 - Labs Result Diagrams: 03/09/17 06:53 03/09/17 06:53 Labs: Laboratory Results - last 24 hr 03/08/17 03/08/17 03/08/17 06:18 06:20 08:15 WBC RBC Hgb Hct MCV MCH MCHC RDW Plt Count MPV Neut % (Auto) Lymph % (Auto) Emanuel % (Auto) Eos % (Auto) Baso % (Auto) Neut # Lymph # Emanuel # Eos # Baso # Neutrophils % (Manual) 82 H Band Neutrophils % 1 Lymphocytes % (Manual) 10 L Monocytes % (Manual) 7 Eosinophils % (Manual) Nucleated RBC % 1 H Platelet Estimate Normal Hypochromasia (manual) Slight Poikilocytosis (manual Slight Anisocytosis (manual) Slight Tear Drop Cells Slight Puncture Site pCO2 pO2 HCO3 ABG pH ABG Total CO2 ABG O2 Saturation ABG Base Excess ABG Hemoglobin ABG Carboxyhemoglobin POC ABG HHb (Measured) ABG Methemoglobin Reji Test A-a O2 Difference Respiratory Index Hgb O2 Saturation Vent Mode Mechanical Rate FiO2 Tidal Volume PEEP Sodium Potassium Chloride Carbon Dioxide Anion Gap BUN Creatinine Est GFR ( Amer) Est GFR (Non-Af Amer) POC Glucose (mg/dL) Random Glucose Calcium Phosphorus Magnesium Ferritin 1180.0 Total Bilirubin AST ALT Alkaline Phosphatase Total Protein Total Protein (PEP) 6.1 Albumin Globulin Albumin/Globulin Ratio Folate 8.5 03/08/17 03/08/17 03/08/17 11:54 17:50 23:36 WBC RBC Hgb Hct MCV MCH MCHC RDW Plt Count MPV Neut % (Auto) Lymph % (Auto) Emanuel % (Auto) Eos % (Auto) Baso % (Auto) Neut # Lymph # Emanuel # Eos # Baso # Neutrophils % (Manual) Band Neutrophils % Lymphocytes % (Manual) Monocytes % (Manual) Eosinophils % (Manual) Nucleated RBC % Platelet Estimate Hypochromasia (manual) Poikilocytosis (manual Anisocytosis (manual) Tear Drop Cells Puncture Site pCO2 pO2 HCO3 ABG pH ABG Total CO2 ABG O2 Saturation ABG Base Excess ABG Hemoglobin ABG Carboxyhemoglobin POC ABG HHb (Measured) ABG Methemoglobin Reji Test A-a O2 Difference Respiratory Index Hgb O2 Saturation Vent Mode Mechanical Rate FiO2 Tidal Volume PEEP Sodium Potassium Chloride Carbon Dioxide Anion Gap BUN Creatinine Est GFR ( Amer) Est GFR (Non-Af Amer) POC Glucose (mg/dL) 210 H 250 H 155 H Random Glucose Calcium Phosphorus Magnesium Ferritin Total Bilirubin AST ALT Alkaline Phosphatase Total Protein Total Protein (PEP) Albumin Globulin Albumin/Globulin Ratio Folate 03/09/17 03/09/17 03/09/17 05:10 05:21 06:53 WBC 8.8 RBC 3.19 L Hgb 9.7 L Hct 28.9 L MCV 90.6 MCH 30.5 MCHC 33.6 RDW 15.9 H Plt Count 135 MPV 9.1 Neut % (Auto) 82.6 H Lymph % (Auto) 9.9 L Emanuel % (Auto) 6.7 Eos % (Auto) 0.4 Baso % (Auto) 0.4 Neut # 7.2 H Lymph # 0.9 L Emanuel # 0.6 Eos # 0.0 Baso # 0.0 Neutrophils % (Manual) 79 H Band Neutrophils % 3 H Lymphocytes % (Manual) 9 L Monocytes % (Manual) 8 Eosinophils % (Manual) 1 Nucleated RBC % Platelet Estimate Normal Hypochromasia (manual) Slight Poikilocytosis (manual Anisocytosis (manual) Slight Tear Drop Cells Puncture Site Rr pCO2 38 pO2 61 L HCO3 28.3 H ABG pH 7.48 H ABG Total CO2 29.5 H ABG O2 Saturation 94.1 L ABG Base Excess 4.6 H ABG Hemoglobin 18.2 H ABG Carboxyhemoglobin 1.8 H POC ABG HHb (Measured) 5.8 H ABG Methemoglobin 0.7 Reji Test Pos A-a O2 Difference 319.0 Respiratory Index 5.2 Hgb O2 Saturation 91.7 L Vent Mode Prvc Mechanical Rate 16 FiO2 60.0 Tidal Volume 450 PEEP 5 Sodium Potassium Chloride Carbon Dioxide Anion Gap BUN Creatinine Est GFR ( Amer) Est GFR (Non-Af Amer) POC Glucose (mg/dL) 176 H Random Glucose Calcium Phosphorus Magnesium Ferritin Total Bilirubin AST ALT Alkaline Phosphatase Total Protein Total Protein (PEP) Albumin Globulin Albumin/Globulin Ratio Folate 03/09/17 06:53 WBC RBC Hgb Hct MCV MCH MCHC RDW Plt Count MPV Neut % (Auto) Lymph % (Auto) Emanuel % (Auto) Eos % (Auto) Baso % (Auto) Neut # Lymph # Emanuel # Eos # Baso # Neutrophils % (Manual) Band Neutrophils % Lymphocytes % (Manual) Monocytes % (Manual) Eosinophils % (Manual) Nucleated RBC % Platelet Estimate Hypochromasia (manual) Poikilocytosis (manual Anisocytosis (manual) Tear Drop Cells Puncture Site pCO2 pO2 HCO3 ABG pH ABG Total CO2 ABG O2 Saturation ABG Base Excess ABG Hemoglobin ABG Carboxyhemoglobin POC ABG HHb (Measured) ABG Methemoglobin Reji Test A-a O2 Difference Respiratory Index Hgb O2 Saturation Vent Mode Mechanical Rate FiO2 Tidal Volume PEEP Sodium 141 Potassium 3.6 Chloride 99 Carbon Dioxide 28 Anion Gap 18 BUN 62 H Creatinine 2.7 H Est GFR ( Amer) 30 Est GFR (Non-Af Amer) 25 POC Glucose (mg/dL) Random Glucose 165 H Calcium 7.2 L Phosphorus 5.3 H Magnesium 1.9 Ferritin Total Bilirubin 1.1 AST 69 H ALT 83 H D Alkaline Phosphatase 95 Total Protein 6.6 Total Protein (PEP) Albumin 3.3 L Globulin 3.3 Albumin/Globulin Ratio 1.0 Folate Assessment & Plan - Assessment and Plan (Free Text) Plan: Pt seen this am .Rx santyl dressing right amp wound daily at ray 1 .We will follow. <Dany Zamudio - Last Filed: 03/09/17 12:09> History of Present Illness - History of Present Illness History of Present Illness: 52 yo male patient with PMHx of NIDDM, HTN, Cardiac arrest was seen at bedside ICU this morning concerning open wound to right foot hallux amputation site. Patient on CPAP not able to communicate. Patient's friends at bedside. Dressing to right foot appears clean dry and intact. Meds - Medications Medications: Current Medications Acetaminophen (Tylenol 650mg/20.3ml Solution Ud) 650 mg PO Q4 PRN PRN Reason: temp >101 Last Admin: 03/09/17 00:04 Dose: 650 mg Albuterol/Ipratropium (Duoneb 3 Mg/0.5 Mg (3 Ml) Ud) 3 ml INH RQ6 [facility] Last Admin: 03/09/17 07:12 Dose: 3 ml Artificial Tears (Lacri-Lube) 0 gm OS Q4H PRN PRN Reason: Other Last Admin: 03/06/17 14:23 Dose: 3.5 gm Calcium Acetate (Phoslo) 667 mg GT TIDCC [facility] Last Admin: 03/09/17 11:17 Dose: 667 mg Collagenase (Santyl) 0 gm TOP DAILY [facility] Heparin Sodium (Porcine) (Heparin) 5,000 units SC Q8 [facility] Last Admin: 03/09/17 05:12 Dose: 5,000 units Piperacillin Sod/Tazobactam Sod (Zosyn 2.25 Gm Iv Premix) 2.25 gm in 50 mls @ 100 mls/hr IVPB Q6H [facility] Last Admin: 03/09/17 10:00 Dose: 100 mls/hr Azithromycin 500 mg/ Sodium (Chloride) 250 mls @ 250 mls/hr IVPB DAILY [facility] Last Admin: 03/09/17 11:15 Dose: 250 mls/hr Vancomycin HCl/Dextrose (Vancocin) 500 mg in 100 mls @ 100 mls/hr IVPB DAILY [facility] Stop: 03/13/17 10:01 Last Admin: 03/09/17 11:00 Dose: 100 mls/hr Levetiracetam 500 mg/ Dextrose 105 mls @ 420 mls/hr IVPB Q12H [facility] Last Admin: 03/09/17 01:49 Dose: 420 mls/hr Lorazepam 20 mg/ Sodium (Chloride) 20 mls @ 0.77 mls/hr IV .Q24H [facility]; 0.01 MG/ KG/HR PRN Reason: Protocol Insulin Human Regular (Novolin R) 0 unit SC Q6 [facility] PRN Reason: Protocol Last Admin: 03/09/17 05:24 Dose: 2 unit Pantoprazole Sodium (Protonix Inj) 40 mg IVP DAILY [facility] Last Admin: 03/09/17 11:14 Dose: 40 mg Physical Exam - Constitutional Appears: Well, Non-toxic, No Acute Distress - Head Exam Head Exam: ATRAUMATIC - Extremities Exam Additional comments: Right lower extremity exam DERM: Open wound noted to medial aspect of right Hallux amputation site measuring 3.5cm x 2cm x 0.6cm with mostly fibrotic base. Mild purulent drainage is noted with slightly macerated wound margins. Wen wound erythema measures < 1cm margin. Mal-odor is present. VASC: Palpable DP noted at 1/4, non-palpable PT noted. COMMUNICATIONS INTERN less than 3 seconds to all digits noted. - Skin Skin Exam: Normal Color, Warm Results - Vital Signs Recent Vital Signs: Last Vital Signs Temp 98.9 F 03/09/17 04:00 Pulse 103 H 03/09/17 07:01 Resp 21 03/09/17 07:01 BP 111/69 03/09/17 07:01 Pulse Ox 98 03/09/17 07:01 - Labs Result Diagrams: 03/09/17 06:53 03/09/17 06:53 Labs: Laboratory Results - last 24 hr 03/08/17 03/08/17 03/08/17 08:15 11:54 17:50 WBC RBC Hgb Hct MCV MCH MCHC RDW Plt Count MPV Neut % (Auto) Lymph % (Auto) Emanuel % (Auto) Eos % (Auto) Baso % (Auto) Neut # Lymph # Emanuel # Eos # Baso # Neutrophils % (Manual) Band Neutrophils % Lymphocytes % (Manual) Monocytes % (Manual) Eosinophils % (Manual) Platelet Estimate Hypochromasia (manual) Anisocytosis (manual) Puncture Site pCO2 pO2 HCO3 ABG pH ABG Total CO2 ABG O2 Saturation ABG Base Excess ABG Hemoglobin ABG Carboxyhemoglobin POC ABG HHb (Measured) ABG Methemoglobin Reji Test A-a O2 Difference Respiratory Index Hgb O2 Saturation Vent Mode Mechanical Rate FiO2 Tidal Volume PEEP Sodium Potassium Chloride Carbon Dioxide Anion Gap BUN Creatinine Est GFR ( Amer) Est GFR (Non-Af Amer) POC Glucose (mg/dL) 210 H 250 H Random Glucose Calcium Phosphorus Magnesium Total Bilirubin AST ALT Alkaline Phosphatase Total Protein Total Protein (PEP) 6.1 Albumin Globulin Albumin/Globulin Ratio 03/08/17 03/09/17 03/09/17 23:36 05:10 05:21 WBC RBC Hgb Hct MCV MCH MCHC RDW Plt Count MPV Neut % (Auto) Lymph % (Auto) Emanuel % (Auto) Eos % (Auto) Baso % (Auto) Neut # Lymph # Emanuel # Eos # Baso # Neutrophils % (Manual) Band Neutrophils % Lymphocytes % (Manual) Monocytes % (Manual) Eosinophils % (Manual) Platelet Estimate Hypochromasia (manual) Anisocytosis (manual) Puncture Site Rr pCO2 38 pO2 61 L HCO3 28.3 H ABG pH 7.48 H ABG Total CO2 29.5 H ABG O2 Saturation 94.1 L ABG Base Excess 4.6 H ABG Hemoglobin 18.2 H ABG Carboxyhemoglobin 1.8 H POC ABG HHb (Measured) 5.8 H ABG Methemoglobin 0.7 Reji Test Pos A-a O2 Difference 319.0 Respiratory Index 5.2 Hgb O2 Saturation 91.7 L Vent Mode Prvc Mechanical Rate 16 FiO2 60.0 Tidal Volume 450 PEEP 5 Sodium Potassium Chloride Carbon Dioxide Anion Gap BUN Creatinine Est GFR ( Amer) Est GFR (Non-Af Amer) POC Glucose (mg/dL) 155 H 176 H Random Glucose Calcium Phosphorus Magnesium Total Bilirubin AST ALT Alkaline Phosphatase Total Protein Total Protein (PEP) Albumin Globulin Albumin/Globulin Ratio 03/09/17 03/09/17 06:53 06:53 WBC 8.8 RBC 3.19 L Hgb 9.7 L Hct 28.9 L MCV 90.6 MCH 30.5 MCHC 33.6 RDW 15.9 H Plt Count 135 MPV 9.1 Neut % (Auto) 82.6 H Lymph % (Auto) 9.9 L Emanuel % (Auto) 6.7 Eos % (Auto) 0.4 Baso % (Auto) 0.4 Neut # 7.2 H Lymph # 0.9 L Emanuel # 0.6 Eos # 0.0 Baso # 0.0 Neutrophils % (Manual) 79 H Band Neutrophils % 3 H Lymphocytes % (Manual) 9 L Monocytes % (Manual) 8 Eosinophils % (Manual) 1 Platelet Estimate Normal Hypochromasia (manual) Slight Anisocytosis (manual) Slight Puncture Site pCO2 pO2 HCO3 ABG pH ABG Total CO2 ABG O2 Saturation ABG Base Excess ABG Hemoglobin ABG Carboxyhemoglobin POC ABG HHb (Measured) ABG Methemoglobin Reji Test A-a O2 Difference Respiratory Index Hgb O2 Saturation Vent Mode Mechanical Rate FiO2 Tidal Volume PEEP Sodium 141 Potassium 3.6 Chloride 99 Carbon Dioxide 28 Anion Gap 18 BUN 62 H Creatinine 2.7 H Est GFR ( Amer) 30 Est GFR (Non-Af Amer) 25 POC Glucose (mg/dL) Random Glucose 165 H Calcium 7.2 L Phosphorus 5.3 H Magnesium 1.9 Total Bilirubin 1.1 AST 69 H ALT 83 H D Alkaline Phosphatase 95 Total Protein 6.6 Total Protein (PEP) Albumin 3.3 L Globulin 3.3 Albumin/Globulin Ratio 1.0 Assessment & Plan - Assessment and Plan (Free Text) Assessment: 52 yo male patient presenting with open wound to right Hallux amputation site Plan: Santyl ordered labs and vitals reviewed WBC 8.8 Right foot dressed with DSD. Santyl ordered Podiatry continue to follow In house Thank you for the opportunity for treating the patient
--- NOTE | 2017-03-09 09:26 | RAD ---
HISTORY: intubated COMPARISON: No prior. FINDINGS: In situ ETT, tip of which lies approximately 4.36 cm above samuel. In situ NGT, the tip of which has not been included on this film though distal aspect does lie below EG junction. LUNGS: Interval progression right lower lobe opacity. Suspect small right and tiny left-sided effusions. PLEURA: No significant pleural effusion identified, no pneumothorax apparent. CARDIOVASCULAR: Heart size is borderline/ mildly enlarged. OSSEOUS STRUCTURES: No significant abnormalities. VISUALIZED UPPER ABDOMEN: Normal. OTHER FINDINGS: None. IMPRESSION: ETT and NGT as above. Interval progression right lower lobe opacity. Suspect small right and tiny left-sided effusions.
--- NOTE | 2017-03-09 10:59 | EEG ---
DATE: 03/07/2017 This is a 16-channel electroencephalogram of a comatose adult. The study was performed at the bedside. This electroencephalogram is consistent with burst suppression from the beginning. Some low amplitude, 2 to 3 Hz delta activity seen intermittently. Most of the study shows no electrical activities consistent with possible cerebral silence. Please correlate the finding with the neurological and radiological studies. Ronnie Rascon MD
[2017-03-09] MEDS: Vancomycin 500mg/D5W 100 ml 500 MG/100 ML BAG IVPB SCH (11:00)
[2017-03-09] MEDS: Azithromycin 500 MG in Sodium Chloride 0.9% 250 ML IVPB SCH (11:15)
--- NOTE | 2017-03-09 13:11 | CP.PCM.PN ---
Subjective - Date & Time of Evaluation Date of Evaluation: 03/09/17 Time of Evaluation: 13:10 - Subjective Subjective: Same poor responsiveness does not track commands [id number] creat sl less-2.7 further care being considered K low- can replete on phoslo for elevated phos Objective - Vital Signs/Intake and Output Vital Signs (last 24 hours): Temp Pulse Resp BP Pulse Ox 102.5 F H 103 H 21 111/69 98 03/09/17 12:22 03/09/17 07:01 03/09/17 07:01 03/09/17 07:01 03/09/17 07:01 Intake and Output: 03/09/17 03/09/17 06:59 18:59 Intake Total 820 Output Total 885 Balance -65 - Medications Medications: Current Medications Acetaminophen (Tylenol 650mg/20.3ml Solution Ud) 650 mg PO Q4 PRN PRN Reason: temp >101 Last Admin: 03/09/17 12:22 Dose: 650 mg Albuterol/Ipratropium (Duoneb 3 Mg/0.5 Mg (3 Ml) Ud) 3 ml INH RQ6 [facility] Last Admin: 03/09/17 07:12 Dose: 3 ml Artificial Tears (Lacri-Lube) 0 gm OS Q4H PRN PRN Reason: Other Last Admin: 03/06/17 14:23 Dose: 3.5 gm Calcium Acetate (Phoslo) 667 mg GT TIDCC [facility] Last Admin: 03/09/17 11:17 Dose: 667 mg Collagenase (Santyl) 0 gm TOP DAILY [facility] Heparin Sodium (Porcine) (Heparin) 5,000 units SC Q8 [facility] Last Admin: 03/09/17 05:12 Dose: 5,000 units Piperacillin Sod/Tazobactam Sod (Zosyn 2.25 Gm Iv Premix) 2.25 gm in 50 mls @ 100 mls/hr IVPB Q6H [facility] Last Admin: 03/09/17 10:00 Dose: 100 mls/hr Azithromycin 500 mg/ Sodium (Chloride) 250 mls @ 250 mls/hr IVPB DAILY [facility] Last Admin: 03/09/17 11:15 Dose: 250 mls/hr Vancomycin HCl/Dextrose (Vancocin) 500 mg in 100 mls @ 100 mls/hr IVPB DAILY [facility] Stop: 03/13/17 10:01 Last Admin: 03/09/17 11:00 Dose: 100 mls/hr Levetiracetam 500 mg/ Dextrose 105 mls @ 420 mls/hr IVPB Q12H [facility] Last Admin: 03/09/17 01:49 Dose: 420 mls/hr Lorazepam 20 mg/ Sodium (Chloride) 20 mls @ 0.77 mls/hr IV .Q24H [facility]; 0.01 MG/ KG/HR PRN Reason: Protocol Insulin Human Regular (Novolin R) 0 unit SC Q6 [facility] PRN Reason: Protocol Last Admin: 03/09/17 12:19 Dose: 2 unit Pantoprazole Sodium (Protonix Inj) 40 mg IVP DAILY [facility] Last Admin: 03/09/17 11:14 Dose: 40 mg - Labs Labs: 03/09/17 06:53 03/09/17 06:53 PT 15.6 SECONDS (9.7-12.2) H 03/04/17 19:55 INR 1.4 03/04/17 19:55 APTT 31 SECONDS (21-34) 03/04/17 19:55 Assessment and Plan (1) SAUNDRA (acute kidney injury) Status: Acute (2) CHF (congestive heart failure) Status: Acute (3) Cardiac arrest Status: Acute (4) Open wound of right foot with complication Status: Acute (5) Respiratory failure Status: Acute
[2017-03-09] MEDS ORDERED: Potassium Chloride 20 mEq/15 ml LIQ UD GT SCH (13:15)
[2017-03-09] MEDS: LORAZEPAM IV SCH (13:33)
[2017-03-09] MEDS: SODIUM CHLORIDE 0.9% IV SCH (13:33)
[2017-03-09 14:01] LABS: BETA 1 GLOBULIN 0.3 g/dL (0.4-0.6); BETA 2 GLOBULIN 0.5 g/dL (0.2-0.5); GAMMA GLOBULIN 1.3 g/dL (0.8-1.7)
--- NOTE | 2017-03-09 14:09 | CP.CCUPN ---
<Temi Rosales - Last Filed: 03/09/17 14:20> CCU Subjective - Physician Review Subjective (Free Text): Patient seen and examined at bedside. ROS unobtainable due to patient's current clinical status. CCU Objective - Vital Signs / Intake & Output Vital Signs (Last 4 hours): Vital Signs Temp 03/09/17 12:22 102.5 F H Intake and Output (Last 8hrs): Intake & Output 03/08/17 03/09/17 03/09/17 22:59 06:59 14:59 Intake Total 480 630 Output Total 560 650 Balance -80 -20 Weight 171 lb 4.787 oz Intake: Intake, IV Amount 100 150 Right Antecubital 50 Right Hand 50 150 Tube Feeding 280 280 Other 100 200 Output: Urine 560 650 Urethral (Gipson) 560 650 Other: # Bowel Movements 0 0 - Physical Exam Head: Positive for: Atraumatic, Normocephalic Mouth: Positive for: Moist Mucous Membranes Respiratory/Chest: Positive for: Rales Cardiovascular: Positive for: Regular Rate and Rhythm, Normal S1, S2 Abdomen: Negative for: Distention Lower Extremity: Positive for: Other (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 Negative for: Alert, Oriented x 3 - Medications Active Medications: Active Medications Generic Name Dose Route Start Last Admin Trade Name Freq PRN Reason Stop Dose Admin Acetaminophen 650 mg 03/05/17 22:55 03/09/17 12:22 Tylenol 650mg/20.3ml Solution Ud PO 650 mg Q4 PRN Administration temp >101 Albuterol/Ipratropium 3 ml 03/05/17 14:00 03/09/17 13:24 Duoneb 3 Mg/0.5 Mg (3 Ml) Ud INH 3 ml RQ6 TENA Administration Artificial Tears 0 gm 03/06/17 10:04 03/06/17 14:23 Lacri-Lube OS 3.5 gm Q4H PRN Administration Other Calcium Acetate 667 mg 03/08/17 10:00 03/09/17 11:17 Phoslo GT 667 mg TIDCC TENA Administration Collagenase 0 gm 03/10/17 10:00 Santyl TOP DAILY TENA Heparin Sodium (Porcine) 5,000 units 03/05/17 06:00 03/09/17 13:34 Heparin SC 5,000 units Q8 TENA Administration Piperacillin Sod/Tazobactam Sod 2.25 gm in 50 mls @ 100 mls/hr 03/04/17 21:30 03/09/17 10:00 Zosyn 2.25 Gm Iv Premix IVPB 100 mls/hr Q6H TENA Administration Azithromycin 500 mg/ Sodium 250 mls @ 250 mls/hr 03/05/17 13:00 03/09/17 11: 15 Chloride IVPB 250 mls/hr DAILY TENA Administration Vancomycin HCl/Dextrose 500 mg in 100 mls @ 100 mls/hr 03/08/17 11:00 11:00 Vancocin IVPB 03/13/17 10:01 100 mls/hr DAILY TENA Administration Levetiracetam 500 mg/ Dextrose 105 mls @ 420 mls/hr 03/08/17 14:45 03/09/17 01:49 IVPB 420 mls/hr Q12H TENA Administration Lorazepam 20 mg/ Sodium 20 mls @ 0.77 mls/hr 03/09/17 12:15 03/09/17 13:33 Chloride IV 0.01 mg/kg/hr .Q24H TENA 0.77 mls/hr Protocol Administration 0.01 MG/KG/HR Insulin Human Regular 0 unit 03/08/17 09:35 03/09/17 12:19 Novolin R SC 2 unit Q6 TENA Administration Protocol Pantoprazole Sodium 40 mg 03/05/17 10:00 03/09/17 11:14 Protonix Inj IVP 40 mg DAILY TENA Administration Potassium Chloride 20 meq 03/09/17 13:15 03/09/17 13:52 Potassium Chloride Oral Soln GT 20 meq ONCE TENA Administration - Patient Studies Lab Studies: Microbiology Studies 03/04/17 20:30 Blood Culture - Preliminary Blood NO GROWTH AFTER 3 DAYS 03/04/17 21:00 Blood Culture - Preliminary Blood NO GROWTH AFTER 3 DAYS Lab Studies 03/09/17 03/09/17 03/09/17 Range/Units 12:11 06:53 06:53 WBC 8.8 (4.8-10.8) K/uL RBC 3.19 L (4.40-5.90) Mil/uL Hgb 9.7 L (12.0-18.0) g/dL Hct 28.9 L (35.0-51.0) % MCV 90.6 (80.0-94.0) fL MCH 30.5 (27.0-31.0) pg MCHC 33.6 (33.0-37.0) g/dL RDW 15.9 H (11.5-14.5) % Plt Count 135 (130-400) K/uL MPV 9.1 (7.2-11.7) fL Neut % (Auto) 82.6 H (50.0-75.0) % Lymph % (Auto) 9.9 L (20.0-40.0) % [place] % (Auto) 6.7 (0.0-10.0) % Eos % (Auto) 0.4 (0.0-4.0) % Baso % (Auto) 0.4 (0.0-2.0) % Neut # 7.2 H (1.8-7.0) K/uL Lymph # 0.9 L (1.0-4.3) K/uL [place] # 0.6 (0.0-0.8) K/uL Eos # 0.0 (0.0-0.7) K/uL Baso # 0.0 (0.0-0.2) K/uL Neutrophils % (Manual) 79 H (50-75) % Band Neutrophils % 3 H (0-2) % Lymphocytes % (Manual) 9 L (20-40) % Monocytes % (Manual) 8 (0-10) % Eosinophils % (Manual) 1 (0-4) % Platelet Estimate Normal (NORMAL) Hypochromasia (manual) Slight Anisocytosis (manual) Slight Puncture Site pCO2 (35-45) mm/Hg pO2 (80-100) mm/Hg HCO3 (21-28) mmol/L ABG pH (7.35-7.45) ABG Total CO2 (22-28) mmol/L ABG O2 Saturation (95-98) % ABG Base Excess (-2.0-3.0) mmol/L ABG Hemoglobin (11.7-17.4) g/dL ABG Carboxyhemoglobin (0.5-1.5) % POC ABG HHb (Measured) (0.0-5.0) % ABG Methemoglobin (0.0-3.0) % Reji Test A-a O2 Difference mm/Hg Respiratory Index Hgb O2 Saturation (95.0-98.0) % Vent Mode Mechanical Rate FiO2 % Tidal Volume PEEP Sodium 141 (132-148) mmol/L Potassium 3.6 (3.6-5.2) mmol/L Chloride 99 (98-107) mmol/L Carbon Dioxide 28 (22-30) mmol/L Anion Gap 18 (10-20) BUN 62 H (9-20) mg/dL Creatinine 2.7 H (0.8-1.5) mg/dL Est GFR ( Amer) 30 Est GFR (Non-Af Amer) 25 POC Glucose (mg/dL) 193 H (65-110) mg/dL Random Glucose 165 H (75-110) mg/dL Calcium 7.2 L (8.6-10.4) mg/dl Phosphorus 5.3 H (2.5-4.5) mg/dL Magnesium 1.9 (1.6-2.3) mg/dL Total Bilirubin 1.1 (0.2-1.3) mg/dL AST 69 H (17-59) U/L ALT 83 H D (21-72) U/L Alkaline Phosphatase 95 (38-126) U/L Total Protein 6.6 (6.3-8.3) g/dL Total Protein (PEP) (6.1-8.1) g/dL Albumin 3.3 L (3.5-5.0) g/dL Albumin (PEP) (3.8-4.8) g/dL Globulin 3.3 (2.2-3.9) gm/dL Albumin/Globulin Ratio 1.0 (1.0-2.1) Xvyzl-2-Izfaukujc (0.2-0.3) g/dL Ezgbm-0-Yoahvvapj (0.5-0.9) g/dL Vxxc-5-Hlvlbzox (0.4-0.6) g/dL Bhrv-2-Lfajucsk (0.2-0.5) g/dL Gamma Globulins (0.8-1.7) g/dL Abnorm Protein Band 1 Abnorm Protein Band 2 Abnorm Protein Band 3 ARCADIO & SPEP Interp 03/09/17 03/09/17 03/08/17 Range/Units 05:21 05:10 23:36 WBC (4.8-10.8) K/uL RBC (4.40-5.90) Mil/uL Hgb (12.0-18.0) g/dL Hct (35.0-51.0) % MCV (80.0-94.0) fL MCH (27.0-31.0) pg MCHC (33.0-37.0) g/dL RDW (11.5-14.5) % Plt Count (130-400) K/uL MPV (7.2-11.7) fL Neut % (Auto) (50.0-75.0) % Lymph % (Auto) (20.0-40.0) % [place] % (Auto) (0.0-10.0) % Eos % (Auto) (0.0-4.0) % Baso % (Auto) (0.0-2.0) % Neut # (1.8-7.0) K/uL Lymph # (1.0-4.3) K/uL [place] # (0.0-0.8) K/uL Eos # (0.0-0.7) K/uL Baso # (0.0-0.2) K/uL Neutrophils % (Manual) (50-75) % Band Neutrophils % (0-2) % Lymphocytes % (Manual) (20-40) % Monocytes % (Manual) (0-10) % Eosinophils % (Manual) (0-4) % Platelet Estimate (NORMAL) Hypochromasia (manual) Anisocytosis (manual) Puncture Site Rr pCO2 38 (35-45) mm/Hg pO2 61 L (80-100) mm/Hg HCO3 28.3 H (21-28) mmol/L ABG pH 7.48 H (7.35-7.45) ABG Total CO2 29.5 H (22-28) mmol/L ABG O2 Saturation 94.1 L (95-98) % ABG Base Excess 4.6 H (-2.0-3.0) mmol/L ABG Hemoglobin 18.2 H (11.7-17.4) g/dL ABG Carboxyhemoglobin 1.8 H (0.5-1.5) % POC ABG HHb (Measured) 5.8 H (0.0-5.0) % ABG Methemoglobin 0.7 (0.0-3.0) % Reji Test Pos A-a O2 Difference 319.0 mm/Hg Respiratory Index 5.2 Hgb O2 Saturation 91.7 L (95.0-98.0) % Vent Mode Prvc Mechanical Rate 16 FiO2 60.0 % Tidal Volume 450 PEEP 5 Sodium (132-148) mmol/L Potassium (3.6-5.2) mmol/L Chloride (98-107) mmol/L Carbon Dioxide (22-30) mmol/L Anion Gap (10-20) BUN (9-20) mg/dL Creatinine (0.8-1.5) mg/dL Est GFR ( Amer) Est GFR (Non-Af Amer) POC Glucose (mg/dL) 176 H 155 H (65-110) mg/dL Random Glucose (75-110) mg/dL Calcium (8.6-10.4) mg/dl Phosphorus (2.5-4.5) mg/dL Magnesium (1.6-2.3) mg/dL Total Bilirubin (0.2-1.3) mg/dL AST (17-59) U/L ALT (21-72) U/L Alkaline Phosphatase (38-126) U/L Total Protein (6.3-8.3) g/dL Total Protein (PEP) (6.1-8.1) g/dL Albumin (3.5-5.0) g/dL Albumin (PEP) (3.8-4.8) g/dL Globulin (2.2-3.9) gm/dL Albumin/Globulin Ratio (1.0-2.1) Poxcb-0-Draweykih (0.2-0.3) g/dL Tqszj-3-Qftrsljij (0.5-0.9) g/dL Xjhf-4-Oringqvq (0.4-0.6) g/dL Kknc-8-Bxzmzyma (0.2-0.5) g/dL Gamma Globulins (0.8-1.7) g/dL Abnorm Protein Band 1 Abnorm Protein Band 2 Abnorm Protein Band 3 ARCADIO & SPEP Interp 03/08/17 03/08/17 Range/Units 17:50 08:15 WBC (4.8-10.8) K/uL RBC (4.40-5.90) Mil/uL Hgb (12.0-18.0) g/dL Hct (35.0-51.0) % MCV (80.0-94.0) fL MCH (27.0-31.0) pg MCHC (33.0-37.0) g/dL RDW (11.5-14.5) % Plt Count (130-400) K/uL MPV (7.2-11.7) fL Neut % (Auto) (50.0-75.0) % Lymph % (Auto) (20.0-40.0) % [place] % (Auto) (0.0-10.0) % Eos % (Auto) (0.0-4.0) % Baso % (Auto) (0.0-2.0) % Neut # (1.8-7.0) K/uL Lymph # (1.0-4.3) K/uL [place] # (0.0-0.8) K/uL Eos # (0.0-0.7) K/uL Baso # (0.0-0.2) K/uL Neutrophils % (Manual) (50-75) % Band Neutrophils % (0-2) % Lymphocytes % (Manual) (20-40) % Monocytes % (Manual) (0-10) % Eosinophils % (Manual) (0-4) % Platelet Estimate (NORMAL) Hypochromasia (manual) Anisocytosis (manual) Puncture Site pCO2 (35-45) mm/Hg pO2 (80-100) mm/Hg HCO3 (21-28) mmol/L ABG pH (7.35-7.45) ABG Total CO2 (22-28) mmol/L ABG O2 Saturation (95-98) % ABG Base Excess (-2.0-3.0) mmol/L ABG Hemoglobin (11.7-17.4) g/dL ABG Carboxyhemoglobin (0.5-1.5) % POC ABG HHb (Measured) (0.0-5.0) % ABG Methemoglobin (0.0-3.0) % Reji Test A-a O2 Difference mm/Hg Respiratory Index Hgb O2 Saturation (95.0-98.0) % Vent Mode Mechanical Rate FiO2 % Tidal Volume PEEP Sodium (132-148) mmol/L Potassium (3.6-5.2) mmol/L Chloride (98-107) mmol/L Carbon Dioxide (22-30) mmol/L Anion Gap (10-20) BUN (9-20) mg/dL Creatinine (0.8-1.5) mg/dL Est GFR ( Amer) Est GFR (Non-Af Amer) POC Glucose (mg/dL) 250 H (65-110) mg/dL Random Glucose (75-110) mg/dL Calcium (8.6-10.4) mg/dl Phosphorus (2.5-4.5) mg/dL Magnesium (1.6-2.3) mg/dL Total Bilirubin (0.2-1.3) mg/dL AST (17-59) U/L ALT (21-72) U/L Alkaline Phosphatase (38-126) U/L Total Protein (6.3-8.3) g/dL Total Protein (PEP) 6.1 (6.1-8.1) g/dL Albumin (3.5-5.0) g/dL Albumin (PEP) 2.5 L (3.8-4.8) g/dL Globulin (2.2-3.9) gm/dL Albumin/Globulin Ratio (1.0-2.1) Rixbq-4-Zxsdreils 0.5 H (0.2-0.3) g/dL Xmuez-8-Flntqcewd 0.9 (0.5-0.9) g/dL Hkbl-2-Fonejkgj 0.3 L (0.4-0.6) g/dL Bddr-5-Rvexqaps 0.5 (0.2-0.5) g/dL Gamma Globulins 1.3 (0.8-1.7) g/dL Abnorm Protein Band 1 TEST NOT PERFORMED Abnorm Protein Band 2 TEST NOT PERFORMED Abnorm Protein Band 3 TEST NOT PERFORMED ARCADIO & SPEP Interp See note Laboratory Results - last 24 hr 03/08/17 03/08/17 03/08/17 08:15 17:50 23:36 WBC RBC Hgb Hct MCV MCH MCHC RDW Plt Count MPV Neut % (Auto) Lymph % (Auto) [place] % (Auto) Eos % (Auto) Baso % (Auto) Neut # Lymph # [place] # Eos # Baso # Neutrophils % (Manual) Band Neutrophils % Lymphocytes % (Manual) Monocytes % (Manual) Eosinophils % (Manual) Platelet Estimate Hypochromasia (manual) Anisocytosis (manual) Puncture Site pCO2 pO2 HCO3 ABG pH ABG Total CO2 ABG O2 Saturation ABG Base Excess ABG Hemoglobin ABG Carboxyhemoglobin POC ABG HHb (Measured) ABG Methemoglobin Reji Test A-a O2 Difference Respiratory Index Hgb O2 Saturation Vent Mode Mechanical Rate FiO2 Tidal Volume PEEP Sodium Potassium Chloride Carbon Dioxide Anion Gap BUN Creatinine Est GFR ( Amer) Est GFR (Non-Af Amer) POC Glucose (mg/dL) 250 H 155 H Random Glucose Calcium Phosphorus Magnesium Total Bilirubin AST ALT Alkaline Phosphatase Total Protein Total Protein (PEP) 6.1 Albumin Albumin (PEP) 2.5 L Globulin Albumin/Globulin Ratio Xhgys-6-Olxysxksa 0.5 H Hbcxz-3-Adddlzvvc 0.9 Nhyn-8-Xmndsudr 0.3 L Ahkp-4-Znpsadwk 0.5 Gamma Globulins 1.3 Abnorm Protein Band 1 TEST NOT PERFORMED Abnorm Protein Band 2 TEST NOT PERFORMED Abnorm Protein Band 3 TEST NOT PERFORMED ARCADIO & SPEP Interp See note 03/09/17 03/09/17 03/09/17 05:10 05:21 06:53 WBC 8.8 RBC 3.19 L Hgb 9.7 L Hct 28.9 L MCV 90.6 MCH 30.5 MCHC 33.6 RDW 15.9 H Plt Count 135 MPV 9.1 Neut % (Auto) 82.6 H Lymph % (Auto) 9.9 L [place] % (Auto) 6.7 Eos % (Auto) 0.4 Baso % (Auto) 0.4 Neut # 7.2 H Lymph # 0.9 L [place] # 0.6 Eos # 0.0 Baso # 0.0 Neutrophils % (Manual) 79 H Band Neutrophils % 3 H Lymphocytes % (Manual) 9 L Monocytes % (Manual) 8 Eosinophils % (Manual) 1 Platelet Estimate Normal Hypochromasia (manual) Slight Anisocytosis (manual) Slight Puncture Site Rr pCO2 38 pO2 61 L HCO3 28.3 H ABG pH 7.48 H ABG Total CO2 29.5 H ABG O2 Saturation 94.1 L ABG Base Excess 4.6 H ABG Hemoglobin 18.2 H ABG Carboxyhemoglobin 1.8 H POC ABG HHb (Measured) 5.8 H ABG Methemoglobin 0.7 Reji Test Pos A-a O2 Difference 319.0 Respiratory Index 5.2 Hgb O2 Saturation 91.7 L Vent Mode Prvc Mechanical Rate 16 FiO2 60.0 Tidal Volume 450 PEEP 5 Sodium Potassium Chloride Carbon Dioxide Anion Gap BUN Creatinine Est GFR ( Amer) Est GFR (Non-Af Amer) POC Glucose (mg/dL) 176 H Random Glucose Calcium Phosphorus Magnesium Total Bilirubin AST ALT Alkaline Phosphatase Total Protein Total Protein (PEP) Albumin Albumin (PEP) Globulin Albumin/Globulin Ratio Qipgt-5-Jmdrcxnoy Pkirq-0-Xzplfjuob Hpgp-7-Jveujnth Sgzp-1-Jyyreift Gamma Globulins Abnorm Protein Band 1 Abnorm Protein Band 2 Abnorm Protein Band 3 ARCADIO & SPEP Interp 03/09/17 03/09/17 06:53 12:11 WBC RBC Hgb Hct MCV MCH MCHC RDW Plt Count MPV Neut % (Auto) Lymph % (Auto) [place] % (Auto) Eos % (Auto) Baso % (Auto) Neut # Lymph # [place] # Eos # Baso # Neutrophils % (Manual) Band Neutrophils % Lymphocytes % (Manual) Monocytes % (Manual) Eosinophils % (Manual) Platelet Estimate Hypochromasia (manual) Anisocytosis (manual) Puncture Site pCO2 pO2 HCO3 ABG pH ABG Total CO2 ABG O2 Saturation ABG Base Excess ABG Hemoglobin ABG Carboxyhemoglobin POC ABG HHb (Measured) ABG Methemoglobin Reji Test A-a O2 Difference Respiratory Index Hgb O2 Saturation Vent Mode Mechanical Rate FiO2 Tidal Volume PEEP Sodium 141 Potassium 3.6 Chloride 99 Carbon Dioxide 28 Anion Gap 18 BUN 62 H Creatinine 2.7 H Est GFR ( Amer) 30 Est GFR (Non-Af Amer) 25 POC Glucose (mg/dL) 193 H Random Glucose 165 H Calcium 7.2 L Phosphorus 5.3 H Magnesium 1.9 Total Bilirubin 1.1 AST 69 H ALT 83 H D Alkaline Phosphatase 95 Total Protein 6.6 Total Protein (PEP) Albumin 3.3 L Albumin (PEP) Globulin 3.3 Albumin/Globulin Ratio 1.0 Izgir-7-Pedsyfaca Lymju-1-Hzbkxnune Vnra-1-Ivqgvazn Ptxl-0-Zquvewsb Gamma Globulins Abnorm Protein Band 1 Abnorm Protein Band 2 Abnorm Protein Band 3 ARCADIO & SPEP Interp Fingerstick Blood Sugar Results: 193 Review of Systems - Review of Systems Systems not reviewed;Unavailable: Intubated Assessment/Plan - Assessment and Plan (Free Text) Assessment: 52 y/o M with pmhx of HTN, DM II, kidney disease, who was brought to the ED after he collapsed in ED at home and was found in asystole. Patient given 3 doses of epi and CPR for 15 minutes then ROSC. Patient intubated in the field. Patient went into cardiac arrest twice more in the ICU. Neuro: Intubated, altered mental status Medication and Management: * Ativan 1 mg q2h PRN seizure activitiy * Keppra 500 mg q12h * Dr. Rascon consulted, help appreciated Imaging: Head CT (03/04): chronic microvascular ischemic changes, no acute intracranial hemorrhage EEG (03/05/17): periodic paroxysmal activities lasting about 2-3 seconds with intermittent burst suppression suggestive of status epileptiform activities. Head CT (03/06/17): nonspecific white matter changes Blood flow (03/08): brain not established EEG (03/08/17): consistent with burst suppression from the beginning. Some low amplitude, 2-3 Hz delta activity seen intermittently. Most of the study shows no electrical activities consistent with possible cerebral silence. Pulm: Respiratory distress secondary to cardiac arrest Medication and Management * Patient intubated * Lasix d/c * gipson to measure urine output * Propofol 5mcg/kg/min Imaging: Chest X-ray (03/07/17): Minimal left pleural effusion, CHF improving Cardio: s/p cardiac arrest Medication and management: * Off of pressors * Dr. Tate consulted, help appreciated * Echo (03/04/17): LVEF:42, mild to moderate LV systolic dysfunction. Normal chamber size. Trace MR and TR. Trace pericardial effusion. Pleural effusion. Heme: anemia Medication and management: * 03/06/17: HgB/Hct: 7/20.6, transfused 2 u PRBCs * 03/07/17: HgB/ Hct: 9.6/28.2 Endo: DM II Medication and management: * Regular ISS- increased to high on 03/08 * accucheck q6h * HgA1C: 9.4 Renal: acute vs chronic kidney disease Medication and management: * Lasix d/c on 03/08 * f/u recommendation as per Dr. Charles * K+ 7.0 on 03/05, 1 amp Ca Gluconate, 1 amp bicarb, duonebs, solumedrol 40 BID given * K+ repeat 6.6, repeat of 1 amp Ca Gluconate, 1 amp bicarb, duonebs, and Kayexalate once at 6pm and once at 10pm * 03/06: K+: 4.5 * 03/07: K+ stable, BUN/Cr: 62/2.9 MSK: right foot wound secondary to first metatarsal amputation Medication and management: * Wound care * Dr. Guzman, podiatry, consulted- help appreciated ID: Medication and management: * Vanco decreased to 500 daily on 03/08 * Zosyn * MRSA in nose * Urine culture (-) * blood culture (-) * Dr. Shore consulted, help appreciated Prophylaxis: DVT: Heparin 5,000 u sc q8h GI: Protonix 40 mg IVP daily glucerna feeds at 35ml/hr, 100 cc free water flushes q6h <Juan José Silva A - Last Filed: 03/09/17 16:04> CCU Objective - Vital Signs / Intake & Output Vital Signs (Last 4 hours): Vital Signs Temp 03/09/17 13:22 100.1 F H 03/09/17 12:22 102.5 F H Intake and Output (Last 8hrs): Intake & Output 03/09/17 03/09/17 03/09/17 06:59 14:59 22:59 Intake Total 630 Output Total 650 Balance -20 Weight 171 lb 4.787 oz Intake: Intake, IV Amount 150 Right Hand 150 Tube Feeding 280 Other 200 Output: Urine 650 Urethral (Gipson) 650 Other: # Bowel Movements 0 - Medications Active Medications: Active Medications Generic Name Dose Route Start Last Admin Trade Name Freq PRN Reason Stop Dose Admin Acetaminophen 650 mg 03/05/17 22:55 03/09/17 12:22 Tylenol 650mg/20.3ml Solution Ud PO 650 mg Q4 PRN Administration temp >101 Albuterol/Ipratropium 3 ml 03/05/17 14:00 03/09/17 13:24 Duoneb 3 Mg/0.5 Mg (3 Ml) Ud INH 3 ml RQ6 TENA Administration Artificial Tears 0 gm 03/06/17 10:04 03/06/17 14:23 Lacri-Lube OS 3.5 gm Q4H PRN Administration Other Calcium Acetate 667 mg 03/08/17 10:00 03/09/17 11:17 Phoslo GT 667 mg TIDCC TENA Administration Collagenase 0 gm 03/10/17 10:00 Santyl TOP DAILY TENA Heparin Sodium (Porcine) 5,000 units 03/05/17 06:00 03/09/17 13:34 Heparin SC 5,000 units Q8 TENA Administration Piperacillin Sod/Tazobactam Sod 2.25 gm in 50 mls @ 100 mls/hr 03/04/17 21:30 03/09/17 10:00 Zosyn 2.25 Gm Iv Premix IVPB 100 mls/hr Q6H TENA Administration Azithromycin 500 mg/ Sodium 250 mls @ 250 mls/hr 03/05/17 13:00 03/09/17 11: 15 Chloride IVPB 250 mls/hr DAILY TENA Administration Vancomycin HCl/Dextrose 500 mg in 100 mls @ 100 mls/hr 03/08/17 11:00 11:00 Vancocin IVPB 03/13/17 10:01 100 mls/hr DAILY TENA Administration Levetiracetam 500 mg/ Dextrose 105 mls @ 420 mls/hr 03/08/17 14:45 03/09/17 15:12 IVPB 420 mls/hr Q12H TENA Administration Lorazepam 20 mg/ Sodium 20 mls @ 0.77 mls/hr 03/09/17 12:15 03/09/17 13:33 Chloride IV 0.01 mg/kg/hr .Q24H TENA 0.77 mls/hr Protocol Administration 0.01 MG/KG/HR Insulin Human Regular 0 unit 03/08/17 09:35 03/09/17 12:19 Novolin R SC 2 unit Q6 TENA Administration Protocol Pantoprazole Sodium 40 mg 03/05/17 10:00 03/09/17 11:14 Protonix Inj IVP 40 mg DAILY TENA Administration Potassium Chloride 20 meq 03/09/17 13:15 03/09/17 13:52 Potassium Chloride Oral Soln GT 20 meq ONCE TENA Administration - Patient Studies Lab Studies: Microbiology Studies 03/04/17 20:30 Blood Culture - Preliminary Blood NO GROWTH AFTER 3 DAYS 03/04/17 21:00 Blood Culture - Preliminary Blood NO GROWTH AFTER 3 DAYS Lab Studies 03/09/17 03/09/17 03/09/17 Range/Units 12:11 06:53 06:53 WBC 8.8 (4.8-10.8) K/uL RBC 3.19 L (4.40-5.90) Mil/uL Hgb 9.7 L (12.0-18.0) g/dL Hct 28.9 L (35.0-51.0) % MCV 90.6 (80.0-94.0) fL MCH 30.5 (27.0-31.0) pg MCHC 33.6 (33.0-37.0) g/dL RDW 15.9 H (11.5-14.5) % Plt Count 135 (130-400) K/uL MPV 9.1 (7.2-11.7) fL Neut % (Auto) 82.6 H (50.0-75.0) % Lymph % (Auto) 9.9 L (20.0-40.0) % [place] % (Auto) 6.7 (0.0-10.0) % Eos % (Auto) 0.4 (0.0-4.0) % Baso % (Auto) 0.4 (0.0-2.0) % Neut # 7.2 H (1.8-7.0) K/uL Lymph # 0.9 L (1.0-4.3) K/uL [place] # 0.6 (0.0-0.8) K/uL Eos # 0.0 (0.0-0.7) K/uL Baso # 0.0 (0.0-0.2) K/uL Neutrophils % (Manual) 79 H (50-75) % Band Neutrophils % 3 H (0-2) % Lymphocytes % (Manual) 9 L (20-40) % Monocytes % (Manual) 8 (0-10) % Eosinophils % (Manual) 1 (0-4) % Platelet Estimate Normal (NORMAL) Hypochromasia (manual) Slight Anisocytosis (manual) Slight Puncture Site pCO2 (35-45) mm/Hg pO2 (80-100) mm/Hg HCO3 (21-28) mmol/L ABG pH (7.35-7.45) ABG Total CO2 (22-28) mmol/L ABG O2 Saturation (95-98) % ABG Base Excess (-2.0-3.0) mmol/L ABG Hemoglobin (11.7-17.4) g/dL ABG Carboxyhemoglobin (0.5-1.5) % POC ABG HHb (Measured) (0.0-5.0) % ABG Methemoglobin (0.0-3.0) % Reji Test A-a O2 Difference mm/Hg Respiratory Index Hgb O2 Saturation (95.0-98.0) % Vent Mode Mechanical Rate FiO2 % Tidal Volume PEEP Sodium 141 (132-148) mmol/L Potassium 3.6 (3.6-5.2) mmol/L Chloride 99 (98-107) mmol/L Carbon Dioxide 28 (22-30) mmol/L Anion Gap 18 (10-20) BUN 62 H (9-20) mg/dL Creatinine 2.7 H (0.8-1.5) mg/dL Est GFR ( Amer) 30 Est GFR (Non-Af Amer) 25 POC Glucose (mg/dL) 193 H (65-110) mg/dL Random Glucose 165 H (75-110) mg/dL Calcium 7.2 L (8.6-10.4) mg/dl Phosphorus 5.3 H (2.5-4.5) mg/dL Magnesium 1.9 (1.6-2.3) mg/dL Total Bilirubin 1.1 (0.2-1.3) mg/dL AST 69 H (17-59) U/L ALT 83 H D (21-72) U/L Alkaline Phosphatase 95 (38-126) U/L Total Protein 6.6 (6.3-8.3) g/dL Total Protein (PEP) (6.1-8.1) g/dL Albumin 3.3 L (3.5-5.0) g/dL Albumin (PEP) (3.8-4.8) g/dL Globulin 3.3 (2.2-3.9) gm/dL Albumin/Globulin Ratio 1.0 (1.0-2.1) Ijtqr-6-Xatuqyamd (0.2-0.3) g/dL Mjmmv-5-Kwvqrfonl (0.5-0.9) g/dL Sntu-0-Ldgdypmh (0.4-0.6) g/dL Zagv-1-Mrnudmjm (0.2-0.5) g/dL Gamma Globulins (0.8-1.7) g/dL Abnorm Protein Band 1 Abnorm Protein Band 2 Abnorm Protein Band 3 ARCADIO & SPEP Interp 03/09/17 03/09/17 03/08/17 Range/Units 05:21 05:10 23:36 WBC (4.8-10.8) K/uL RBC (4.40-5.90) Mil/uL Hgb (12.0-18.0) g/dL Hct (35.0-51.0) % MCV (80.0-94.0) fL MCH (27.0-31.0) pg MCHC (33.0-37.0) g/dL RDW (11.5-14.5) % Plt Count (130-400) K/uL MPV (7.2-11.7) fL Neut % (Auto) (50.0-75.0) % Lymph % (Auto) (20.0-40.0) % [place] % (Auto) (0.0-10.0) % Eos % (Auto) (0.0-4.0) % Baso % (Auto) (0.0-2.0) % Neut # (1.8-7.0) K/uL Lymph # (1.0-4.3) K/uL [place] # (0.0-0.8) K/uL Eos # (0.0-0.7) K/uL Baso # (0.0-0.2) K/uL Neutrophils % (Manual) (50-75) % Band Neutrophils % (0-2) % Lymphocytes % (Manual) (20-40) % Monocytes % (Manual) (0-10) % Eosinophils % (Manual) (0-4) % Platelet Estimate (NORMAL) Hypochromasia (manual) Anisocytosis (manual) Puncture Site Rr pCO2 38 (35-45) mm/Hg pO2 61 L (80-100) mm/Hg HCO3 28.3 H (21-28) mmol/L ABG pH 7.48 H (7.35-7.45) ABG Total CO2 29.5 H (22-28) mmol/L ABG O2 Saturation 94.1 L (95-98) % ABG Base Excess 4.6 H (-2.0-3.0) mmol/L ABG Hemoglobin 18.2 H (11.7-17.4) g/dL ABG Carboxyhemoglobin 1.8 H (0.5-1.5) % POC ABG HHb (Measured) 5.8 H (0.0-5.0) % ABG Methemoglobin 0.7 (0.0-3.0) % Reji Test Pos A-a O2 Difference 319.0 mm/Hg Respiratory Index 5.2 Hgb O2 Saturation 91.7 L (95.0-98.0) % Vent Mode Prvc Mechanical Rate 16 FiO2 60.0 % Tidal Volume 450 PEEP 5 Sodium (132-148) mmol/L Potassium (3.6-5.2) mmol/L Chloride (98-107) mmol/L Carbon Dioxide (22-30) mmol/L Anion Gap (10-20) BUN (9-20) mg/dL Creatinine (0.8-1.5) mg/dL Est GFR ( Amer) Est GFR (Non-Af Amer) POC Glucose (mg/dL) 176 H 155 H (65-110) mg/dL Random Glucose (75-110) mg/dL Calcium (8.6-10.4) mg/dl Phosphorus (2.5-4.5) mg/dL Magnesium (1.6-2.3) mg/dL Total Bilirubin (0.2-1.3) mg/dL AST (17-59) U/L ALT (21-72) U/L Alkaline Phosphatase (38-126) U/L Total Protein (6.3-8.3) g/dL Total Protein (PEP) (6.1-8.1) g/dL Albumin (3.5-5.0) g/dL Albumin (PEP) (3.8-4.8) g/dL Globulin (2.2-3.9) gm/dL Albumin/Globulin Ratio (1.0-2.1) Tdjnl-4-Ydvjwneaq (0.2-0.3) g/dL Byese-3-Qvxfnbhgi (0.5-0.9) g/dL Semi-1-Mbezsprf (0.4-0.6) g/dL Olvf-7-Msojwuze (0.2-0.5) g/dL Gamma Globulins (0.8-1.7) g/dL Abnorm Protein Band 1 Abnorm Protein Band 2 Abnorm Protein Band 3 ARCADIO & SPEP Interp 03/08/17 03/08/17 Range/Units 17:50 08:15 WBC (4.8-10.8) K/uL RBC (4.40-5.90) Mil/uL Hgb (12.0-18.0) g/dL Hct (35.0-51.0) % MCV (80.0-94.0) fL MCH (27.0-31.0) pg MCHC (33.0-37.0) g/dL RDW (11.5-14.5) % Plt Count (130-400) K/uL MPV (7.2-11.7) fL Neut % (Auto) (50.0-75.0) % Lymph % (Auto) (20.0-40.0) % [place] % (Auto) (0.0-10.0) % Eos % (Auto) (0.0-4.0) % Baso % (Auto) (0.0-2.0) % Neut # (1.8-7.0) K/uL Lymph # (1.0-4.3) K/uL [place] # (0.0-0.8) K/uL Eos # (0.0-0.7) K/uL Baso # (0.0-0.2) K/uL Neutrophils % (Manual) (50-75) % Band Neutrophils % (0-2) % Lymphocytes % (Manual) (20-40) % Monocytes % (Manual) (0-10) % Eosinophils % (Manual) (0-4) % Platelet Estimate (NORMAL) Hypochromasia (manual) Anisocytosis (manual) Puncture Site pCO2 (35-45) mm/Hg pO2 (80-100) mm/Hg HCO3 (21-28) mmol/L ABG pH (7.35-7.45) ABG Total CO2 (22-28) mmol/L ABG O2 Saturation (95-98) % ABG Base Excess (-2.0-3.0) mmol/L ABG Hemoglobin (11.7-17.4) g/dL ABG Carboxyhemoglobin (0.5-1.5) % POC ABG HHb (Measured) (0.0-5.0) % ABG Methemoglobin (0.0-3.0) % Reji Test A-a O2 Difference mm/Hg Respiratory Index Hgb O2 Saturation (95.0-98.0) % Vent Mode Mechanical Rate FiO2 % Tidal Volume PEEP Sodium (132-148) mmol/L Potassium (3.6-5.2) mmol/L Chloride (98-107) mmol/L Carbon Dioxide (22-30) mmol/L Anion Gap (10-20) BUN (9-20) mg/dL Creatinine (0.8-1.5) mg/dL Est GFR ( Amer) Est GFR (Non-Af Amer) POC Glucose (mg/dL) 250 H (65-110) mg/dL Random Glucose (75-110) mg/dL Calcium (8.6-10.4) mg/dl Phosphorus (2.5-4.5) mg/dL Magnesium (1.6-2.3) mg/dL Total Bilirubin (0.2-1.3) mg/dL AST (17-59) U/L ALT (21-72) U/L Alkaline Phosphatase (38-126) U/L Total Protein (6.3-8.3) g/dL Total Protein (PEP) 6.1 (6.1-8.1) g/dL Albumin (3.5-5.0) g/dL Albumin (PEP) 2.5 L (3.8-4.8) g/dL Globulin (2.2-3.9) gm/dL Albumin/Globulin Ratio (1.0-2.1) Elxft-7-Dnyhmklvx 0.5 H (0.2-0.3) g/dL Ukdib-4-Nkndthwde 0.9 (0.5-0.9) g/dL Tddf-6-Pwrsquym 0.3 L (0.4-0.6) g/dL Zmto-4-Ywpyuqxa 0.5 (0.2-0.5) g/dL Gamma Globulins 1.3 (0.8-1.7) g/dL Abnorm Protein Band 1 TEST NOT PERFORMED Abnorm Protein Band 2 TEST NOT PERFORMED Abnorm Protein Band 3 TEST NOT PERFORMED ARCADIO & SPEP Interp See note Laboratory Results - last 24 hr 03/08/17 03/08/17 03/08/17 08:15 17:50 23:36 WBC RBC Hgb Hct MCV MCH MCHC RDW Plt Count MPV Neut % (Auto) Lymph % (Auto) [place] % (Auto) Eos % (Auto) Baso % (Auto) Neut # Lymph # [place] # Eos # Baso # Neutrophils % (Manual) Band Neutrophils % Lymphocytes % (Manual) Monocytes % (Manual) Eosinophils % (Manual) Platelet Estimate Hypochromasia (manual) Anisocytosis (manual) Puncture Site pCO2 pO2 HCO3 ABG pH ABG Total CO2 ABG O2 Saturation ABG Base Excess ABG Hemoglobin ABG Carboxyhemoglobin POC ABG HHb (Measured) ABG Methemoglobin Reji Test A-a O2 Difference Respiratory Index Hgb O2 Saturation Vent Mode Mechanical Rate FiO2 Tidal Volume PEEP Sodium Potassium Chloride Carbon Dioxide Anion Gap BUN Creatinine Est GFR ( Amer) Est GFR (Non-Af Amer) POC Glucose (mg/dL) 250 H 155 H Random Glucose Calcium Phosphorus Magnesium Total Bilirubin AST ALT Alkaline Phosphatase Total Protein Total Protein (PEP) 6.1 Albumin Albumin (PEP) 2.5 L Globulin Albumin/Globulin Ratio Vrurl-7-Nmjracflo 0.5 H Psapd-4-Zqqtbctet 0.9 Ukdy-9-Bnrnpztj 0.3 L Yzbh-8-Ffwfpwov 0.5 Gamma Globulins 1.3 Abnorm Protein Band 1 TEST NOT PERFORMED Abnorm Protein Band 2 TEST NOT PERFORMED Abnorm Protein Band 3 TEST NOT PERFORMED AR[facility]IO [facility] SPEP Interp See note 03/09/17 03/09/17 03/09/17 05:10 05:21 06:53 WBC 8.8 RBC 3.19 L Hgb 9.7 L Hct 28.9 L MCV 90.6 MCH 30.5 MCHC 33.6 RDW 15.9 H Plt Count 135 MPV 9.1 Neut % (Auto) 82.6 H Lymph % (Auto) 9.9 L [place] % (Auto) 6.7 Eos % (Auto) 0.4 Baso % (Auto) 0.4 Neut # 7.2 H Lymph # 0.9 L [place] # 0.6 Eos # 0.0 Baso # 0.0 Neutrophils % (Manual) 79 H Band Neutrophils % 3 H Lymphocytes % (Manual) 9 L Monocytes % (Manual) 8 Eosinophils % (Manual) 1 Platelet Estimate Normal Hypochromasia (manual) Slight Anisocytosis (manual) Slight Puncture Site Rr pCO2 38 pO2 61 L HCO3 28.3 H ABG pH 7.48 H ABG Total CO2 29.5 H ABG O2 Saturation 94.1 L ABG Base Excess 4.6 H ABG Hemoglobin 18.2 H ABG Carboxyhemoglobin 1.8 H POC ABG HHb (Measured) 5.8 H ABG Methemoglobin 0.7 Reji Test Pos A-a O2 Difference 319.0 Respiratory Index 5.2 Hgb O2 Saturation 91.7 L Vent Mode Prvc Mechanical Rate 16 FiO2 60.0 Tidal Volume 450 PEEP 5 Sodium Potassium Chloride Carbon Dioxide Anion Gap BUN Creatinine Est GFR ( Amer) Est GFR (Non-Af Amer) POC Glucose (mg/dL) 176 H Random Glucose Calcium Phosphorus Magnesium Total Bilirubin AST ALT Alkaline Phosphatase Total Protein Total Protein (PEP) Albumin Albumin (PEP) Globulin Albumin/Globulin Ratio Sgqbg-1-Ldvfuvziz Mjgzb-4-Mxiulrinl Dtpm-1-Rwjuoncw Ouzh-8-Ibjomwyq Gamma Globulins Abnorm Protein Band 1 Abnorm Protein Band 2 Abnorm Protein Band 3 [facility] [employer] SPEP Interp 03/09/17 03/09/17 06:53 12:11 WBC RBC Hgb Hct MCV MCH MCHC RDW Plt Count MPV Neut % (Auto) Lymph % (Auto) [place] % (Auto) Eos % (Auto) Baso % (Auto) Neut # Lymph # [place] # Eos # Baso # Neutrophils % (Manual) Band Neutrophils % Lymphocytes % (Manual) Monocytes % (Manual) Eosinophils % (Manual) Platelet Estimate Hypochromasia (manual) Anisocytosis (manual) Puncture Site pCO2 pO2 HCO3 ABG pH ABG Total CO2 ABG O2 Saturation ABG Base Excess ABG Hemoglobin ABG Carboxyhemoglobin POC ABG HHb (Measured) ABG Methemoglobin Reji Test A-a O2 Difference Respiratory Index Hgb O2 Saturation Vent Mode Mechanical Rate FiO2 Tidal Volume PEEP Sodium 141 Potassium 3.6 Chloride 99 Carbon Dioxide 28 Anion Gap 18 BUN 62 H Creatinine 2.7 H Est GFR ( Amer) 30 Est GFR (Non-Af Amer) 25 POC Glucose (mg/dL) 193 H Random Glucose 165 H Calcium 7.2 L Phosphorus 5.3 H Magnesium 1.9 Total Bilirubin 1.1 AST 69 H ALT 83 H D Alkaline Phosphatase 95 Total Protein 6.6 Total Protein (PEP) Albumin 3.3 L Albumin (PEP) Globulin 3.3 Albumin/Globulin Ratio 1.0 Uojwm-8-Ojxvfpxoq Cewtc-9-Semjqysyf Mjsv-1-Hyazylpg Bpbj-7-Tyijlrsm Gamma Globulins Abnorm Protein Band 1 Abnorm Protein Band 2 Abnorm Protein Band 3 AR[facility]IO [employer] SPEP Interp Assessment/Plan - Assessment and Plan (Free Text) Plan: CCM History as per housestaff Intubated, unresponsive Perrl Neck- no jvd Lulngs- bilat bs Heart-rr aBD- benign eXt- no edema, R foot dressing intact Neuro- sl. tremor, no movement to pain Labs-reviewed A&P S/P Cardiac Arrest Anoxic Encephalopathy Status Epilepticus CMP HTN DM CKD Anemia R foot wound cont vent support cont meds and AED's cont Benzo /propofol Neurology following for seizures maintain optimal lytes DVT & GI prophylaxis Prognosis poor awaiting family decision on goals of care d/w housestaff critical care time 35 min
--- NOTE | 2017-03-09 17:06 | CARD ---
APPROVED REPORT EKG Measurement Heart [id number] [place] [id number] <Conclusion> Normal sinus rhythm Low voltage QRS Borderline ECG
[2017-03-09] MEDS ORDERED: PHENOBARBITAL IV ONE (18:30)
[2017-03-09] MEDS ORDERED: SODIUM CHLORIDE 0.9% IV ONE (18:30)
--- NOTE | 2017-03-09 18:30 | PN ---
DATE: LOCATION: ICU 17. SUBJECTIVE: This 52-year-old male is seen and examined in the presence of some friends and family members as well as the nursing staff in the Intensive Care Unit, still intubated, sedated, on NG tube feeding. The patient apparently had periods of seizures and Keppra was given as well as Ativan. No final decisions regarding tracheostomy or PEG insertion is done yet by the family. The entire chart is reviewed including, but not limited to the most recent lab and the radiology study results, current and the previous medication list, current and the previous medical events, and the latest blood result showed hemoglobin low at 9.7, hematocrit 28.7, with abnormal ABGs with increased blood glucose level of 176, BUN is 62, creatinine 2.7 with elevated , but low albumin 3.3. PHYSICAL EXAMINATION GENERAL: This is a 52-year-old male, intubated, sedated with local. VITAL SIGNS: Temperature of 102.5 with heart rate of 106, blood pressure 108/72. HEENT: Showed pale, dry oral mucous membrane. Nonicteric sclerae. LUNGS: A few scattered crepitation. Decreased air entry at bases. HEART: Positive S1 and S2 with increased rate. ABDOMEN: Soft. Bowel sounds are present, but hypoactive. NG tube in place. EXTREMITIES: Lower extremities with edematous changes. No clubbing or cyanosis. NEUROLOGIC: No new reported neurological deficits, sensory, or motor. Patient is sedated. It has to be mentioned that today's chest x-ray report is seen also indicative of right lower lobe opacity. IMPRESSION: 1. Respiratory failure, pneumonia, small pleural effusion. The patient is still intubated on ventilator. 2. Malnutrition with hypoalbuminemia, initiate tube feeding. 3. The patient is a candidate for percutaneous gastrostomy insertion. 4. Anemia, most likely secondary to chronic disease. SUGGESTION: 1. Agree with your plan. 2. Central hyperalimentation. 3. We will discuss the case with family, the patient's sister, when they arrive for the patient's PEG insertion. Awaiting legal consent. Further recommendation to follow. Yola Sim MD cc: Yola Sim MD [facility] # [id number]
--- NOTE | 2017-03-09 18:54 | CP.PCM.PN ---
Subjective - Date & Time of Evaluation Date of Evaluation: 03/09/17 Time of Evaluation: 07:00 - Subjective Subjective: seen in ICU nad on vent cultures neg thus far seen by dr ha Objective - Vital Signs/Intake and Output Vital Signs (last 24 hours): Temp Pulse Resp BP Pulse Ox 100 F H 98 H 22 104/61 100 03/09/17 16:00 03/09/17 17:00 03/09/17 17:00 03/09/17 17:00 03/09/17 17:00 Intake and Output: 03/09/17 03/09/17 06:59 18:59 Intake Total 820 1120 Output Total 885 920 Balance -65 200 - Medications Medications: Current Medications Acetaminophen (Tylenol 650mg/20.3ml Solution Ud) 650 mg PO Q4 PRN PRN Reason: temp >101 Last Admin: 03/09/17 12:22 Dose: 650 mg Albuterol/Ipratropium (Duoneb 3 Mg/0.5 Mg (3 Ml) Ud) 3 ml INH RQ6 TENA Last Admin: 03/09/17 13:24 Dose: 3 ml Artificial Tears (Lacri-Lube) 0 gm OS Q4H PRN PRN Reason: Other Last Admin: 03/06/17 14:23 Dose: 3.5 gm Calcium Acetate (Phoslo) 667 mg GT TIDCC TENA Last Admin: 03/09/17 18:09 Dose: 667 mg Collagenase (Santyl) 0 gm TOP DAILY TENA Heparin Sodium (Porcine) (Heparin) 5,000 units SC Q8 TENA Last Admin: 03/09/17 13:34 Dose: 5,000 units Piperacillin Sod/Tazobactam Sod (Zosyn 2.25 Gm Iv Premix) 2.25 gm in 50 mls @ 100 mls/hr IVPB Q6H TENA Last Admin: 03/09/17 16:00 Dose: 100 mls/hr Azithromycin 500 mg/ Sodium (Chloride) 250 mls @ 250 mls/hr IVPB DAILY [facility] Last Admin: 03/09/17 11:15 Dose: 250 mls/hr Vancomycin HCl/Dextrose (Vancocin) 500 mg in 100 mls @ 100 mls/hr IVPB DAILY [facility] Stop: 03/13/17 10:01 Last Admin: 03/09/17 11:00 Dose: 100 mls/hr Levetiracetam 500 mg/ Dextrose 105 mls @ 420 mls/hr IVPB Q12H TENA Last Admin: 03/09/17 15:12 Dose: 420 mls/hr Lorazepam 20 mg/ Sodium (Chloride) 20 mls @ 0.77 mls/hr IV .Q24H TENA; 0.01 MG/ KG/HR PRN Reason: Protocol Last Admin: 03/09/17 13:33 Dose: 0.01 mg/kg/hr, 0.77 mls/hr Phenobarbital 1,000 mg/ Sodium (Chloride) 265.3846 mls @ 530.769 mls/hr IV ONCE ONE Stop: 03/09/17 18:59 Insulin Human Regular (Novolin R) 0 unit SC Q6 TENA PRN Reason: Protocol Last Admin: 03/09/17 18:09 Dose: 2 unit Pantoprazole Sodium (Protonix Inj) 40 mg IVP DAILY TENA Last Admin: 03/09/17 11:14 Dose: 40 mg Phenobarbital (Phenobarbital Inj) 90 mg IV Q8 TENA Potassium Chloride (Potassium Chloride Oral Soln) 20 meq GT ONCE TENA Last Admin: 03/09/17 13:52 Dose: 20 meq - Labs Labs: 03/09/17 06:53 03/09/17 06:53 PT 15.6 SECONDS (9.7-12.2) H 03/04/17 19:55 INR 1.4 03/04/17 19:55 APTT 31 SECONDS (21-34) 03/04/17 19:55 - Constitutional Appears: Non-toxic - Head Exam Head Exam: NORMOCEPHALIC - Eye Exam Eye Exam: absent: Scleral icterus - ENT Exam ENT Exam: Mucous Membranes Dry - Neck Exam Neck Exam: absent: Lymphadenopathy - Respiratory Exam Respiratory Exam: Decreased Breath Sounds - Cardiovascular Exam Cardiovascular Exam: REGULAR RHYTHM - GI/Abdominal Exam GI & Abdominal Exam: Soft - Rectal Exam Rectal Exam: Deferred Assessment and Plan (1) Cardiac arrest Status: Acute (2) Open wound of right foot with complication Status: Acute (3) Respiratory failure Status: Acute
--- NOTE | 2017-03-09 19:22 | CP.PCM.PN ---
Subjective - Date & Time of Evaluation Date of Evaluation: 03/09/17 Time of Evaluation: 12:40 - Subjective Subjective: clinically same Objective - Vital Signs/Intake and Output Vital Signs (last 24 hours): Temp Pulse Resp BP Pulse Ox 100 F H 98 H 22 104/61 100 03/09/17 16:00 03/09/17 17:00 03/09/17 17:00 03/09/17 17:00 03/09/17 17:00 Intake and Output: 03/09/17 03/10/17 18:59 06:59 Intake Total 1120 Output Total 920 Balance 200 - Medications Medications: Current Medications Acetaminophen (Tylenol 650mg/20.3ml Solution Ud) 650 mg PO Q4 PRN PRN Reason: temp >101 Last Admin: 03/09/17 12:22 Dose: 650 mg Albuterol/Ipratropium (Duoneb 3 Mg/0.5 Mg (3 Ml) Ud) 3 ml INH RQ6 [facility] Last Admin: 03/09/17 19:16 Dose: 3 ml Artificial Tears (Lacri-Lube) 0 gm OS Q4H PRN PRN Reason: Other Last Admin: 03/06/17 14:23 Dose: 3.5 gm Calcium Acetate (Phoslo) 667 mg GT TIDCC [facility] Last Admin: 03/09/17 18:09 Dose: 667 mg Collagenase (Santyl) 0 gm TOP DAILY [facility] Heparin Sodium (Porcine) (Heparin) 5,000 units SC Q8 [facility] Last Admin: 03/09/17 13:34 Dose: 5,000 units Piperacillin Sod/Tazobactam Sod (Zosyn 2.25 Gm Iv Premix) 2.25 gm in 50 mls @ 100 mls/hr IVPB Q6H [facility] Last Admin: 03/09/17 16:00 Dose: 100 mls/hr Azithromycin 500 mg/ Sodium (Chloride) 250 mls @ 250 mls/hr IVPB DAILY [facility] Last Admin: 03/09/17 11:15 Dose: 250 mls/hr Vancomycin HCl/Dextrose (Vancocin) 500 mg in 100 mls @ 100 mls/hr IVPB DAILY [facility] Stop: 03/13/17 10:01 Last Admin: 03/09/17 11:00 Dose: 100 mls/hr Levetiracetam 500 mg/ Dextrose 105 mls @ 420 mls/hr IVPB Q12H TENA Last Admin: 03/09/17 15:12 Dose: 420 mls/hr Lorazepam 20 mg/ Sodium (Chloride) 20 mls @ 0.77 mls/hr IV .Q24H TENA; 0.01 MG/ KG/HR PRN Reason: Protocol Last Admin: 03/09/17 13:33 Dose: 0.01 mg/kg/hr, 0.77 mls/hr Insulin Human Regular (Novolin R) 0 unit SC Q6 TENA PRN Reason: Protocol Last Admin: 03/09/17 18:09 Dose: 2 unit Pantoprazole Sodium (Protonix Inj) 40 mg IVP DAILY TENA Last Admin: 03/09/17 11:14 Dose: 40 mg Phenobarbital (Phenobarbital Inj) 90 mg IV Q8 TENA Potassium Chloride (Potassium Chloride Oral Soln) 20 meq GT ONCE TENA Last Admin: 03/09/17 13:52 Dose: 20 meq - Labs Labs: 03/09/17 06:53 03/09/17 06:53 PT 15.6 SECONDS (9.7-12.2) H 03/04/17 19:55 INR 1.4 03/04/17 19:55 APTT 31 SECONDS (21-34) 03/04/17 19:55 - Constitutional Appears: Well - Head Exam Head Exam: ATRAUMATIC, NORMAL INSPECTION, NORMOCEPHALIC - Eye Exam Eye Exam: EOMI, Normal appearance, PERRL Pupil Exam: NORMAL ACCOMODATION, PERRL - ENT Exam ENT Exam: Mucous Membranes Moist, Normal Exam - Neck Exam Neck Exam: Full ROM, Normal Inspection. absent: Lymphadenopathy - Respiratory Exam Respiratory Exam: Decreased Breath Sounds - Cardiovascular Exam Cardiovascular Exam: REGULAR RHYTHM, +S1, +S2 - GI/Abdominal Exam GI & Abdominal Exam: Soft, Diminished Bowel Sounds - Rectal Exam Rectal Exam: Deferred Assessment and Plan (1) Anemia Status: Acute (2) Anoxic encephalopathy Status: Acute (3) Anoxic encephalopathy Status: Acute (4) CHF (congestive heart failure) Status: Acute (5) Cardiac arrest Status: Acute (6) Coagulopathy Status: Acute (7) Open wound of right foot with complication Status: Acute (8) Respiratory failure Status: Acute (9) SAUNDRA (acute kidney injury) Status: Resolved - Assessment and Plan (Free Text) Plan: Patient examined. Low potassium. Potassium repleted. ContinuePiperacillin tazobactam and, azithromycin, vancomycin. Continue supportive treatment.
--- NOTE | 2017-03-09 21:15 | CP.PCM.PN ---
Subjective - Date & Time of Evaluation Date of Evaluation: 03/09/17 Time of Evaluation: 20:00 - Subjective Subjective: Vented Objective - Vital Signs/Intake and Output Vital Signs (last 24 hours): Temp Pulse Resp BP Pulse Ox 100 F H 107 H 24 106/67 99 03/09/17 16:00 03/09/17 19:00 03/09/17 19:00 03/09/17 19:00 03/09/17 19:00 Intake and Output: 03/09/17 03/10/17 18:59 06:59 Intake Total 1120 35 Output Total 780 80 Balance 340 -45 - Medications Medications: Current Medications Acetaminophen (Tylenol 650mg/20.3ml Solution Ud) 650 mg PO Q4 PRN PRN Reason: temp >101 Last Admin: 03/09/17 12:22 Dose: 650 mg Albuterol/Ipratropium (Duoneb 3 Mg/0.5 Mg (3 Ml) Ud) 3 ml INH RQ6 [facility] Last Admin: 03/09/17 19:16 Dose: 3 ml Artificial Tears (Lacri-Lube) 0 gm OS Q4H PRN PRN Reason: Other Last Admin: 03/06/17 14:23 Dose: 3.5 gm Calcium Acetate (Phoslo) 667 mg GT TIDCC [facility] Last Admin: 03/09/17 18:09 Dose: 667 mg Collagenase (Santyl) 0 gm TOP DAILY TENA Heparin Sodium (Porcine) (Heparin) 5,000 units SC Q8 [facility] Last Admin: 03/09/17 13:34 Dose: 5,000 units Piperacillin Sod/Tazobactam Sod (Zosyn 2.25 Gm Iv Premix) 2.25 gm in 50 mls @ 100 mls/hr IVPB Q6H [facility] Last Admin: 03/09/17 16:00 Dose: 100 mls/hr Azithromycin 500 mg/ Sodium (Chloride) 250 mls @ 250 mls/hr IVPB DAILY [facility] Last Admin: 03/09/17 11:15 Dose: 250 mls/hr Vancomycin HCl/Dextrose (Vancocin) 500 mg in 100 mls @ 100 mls/hr IVPB DAILY [facility] Stop: 03/13/17 10:01 Last Admin: 03/09/17 11:00 Dose: 100 mls/hr Levetiracetam 500 mg/ Dextrose 105 mls @ 420 mls/hr IVPB Q12H TENA Last Admin: 03/09/17 15:12 Dose: 420 mls/hr Lorazepam 20 mg/ Sodium (Chloride) 20 mls @ 0.77 mls/hr IV .Q24H TENA; 0.01 MG/ KG/HR PRN Reason: Protocol Last Admin: 03/09/17 13:33 Dose: 0.01 mg/kg/hr, 0.77 mls/hr Insulin Human Regular (Novolin R) 0 unit SC Q6 TENA PRN Reason: Protocol Last Admin: 03/09/17 18:09 Dose: 2 unit Pantoprazole Sodium (Protonix Inj) 40 mg IVP DAILY TENA Last Admin: 03/09/17 11:14 Dose: 40 mg Phenobarbital (Phenobarbital Inj) 90 mg IV Q8 TENA Potassium Chloride (Potassium Chloride Oral Soln) 20 meq GT ONCE TENA Last Admin: 03/09/17 13:52 Dose: 20 meq - Labs Labs: 03/09/17 06:53 03/09/17 06:53 PT 15.6 SECONDS (9.7-12.2) H 03/04/17 19:55 INR 1.4 03/04/17 19:55 APTT 31 SECONDS (21-34) 03/04/17 19:55 - Head Exam Head Exam: ATRAUMATIC - Eye Exam Eye Exam: Normal appearance - ENT Exam ENT Exam: Mucous Membranes Dry - Respiratory Exam Respiratory Exam: NORMAL BREATHING PATTERN - Cardiovascular Exam Cardiovascular Exam: +S1, +S2 - GI/Abdominal Exam GI & Abdominal Exam: Normal Bowel Sounds - Extremities Exam Additional comments: right foot dressing Assessment and Plan (1) Anemia Assessment & Plan: chronic disease and renal disease transfusion support PRN Status: Acute (2) Coagulopathy Assessment & Plan: nutritional will check fibrinogen given down trending platelets Status: Acute
--- NOTE | 2017-03-09 21:55 | CARD ---
APPROVED REPORT EKG Measurement Heart [id number] [place] [id number] <Conclusion> Normal sinus rhythm Nonspecific ST abnormality Abnormal QRS-T angle, consider primary T wave abnormality Prolonged QT Abnormal ECG
--- NOTE | 2017-03-09 21:56 | CARD ---
APPROVED REPORT EKG Measurement Heart [id number] [place] [id number] <Conclusion> Normal sinus rhythm Low voltage QRS ST & T wave abnormality, consider lateral ischemia Prolonged QT Abnormal ECG
[2017-03-10] MEDS: Albuterol-Ipratrop 3 mg / 0.5 (3 ml) UD INH SCH ×4 (01:44→20:38)
[2017-03-10] MEDS: Piperacill/Tazo 2.25gm in Dex 2.25 GM/50 ML BAG IVPB SCH ×4 (03:30→20:56)
[2017-03-10 06:23] LABS: ABG ALLEN TEST POS; ABG MECHANICAL RATE 16; ARTERIAL BLOOD GAS MODE PRVC; ARTERIAL BLOOD HGB O2 SAT 95.6 % (95.0-98.0); ATERIAL BLOOD GAS PEEP 5; CARBOXYHEMOGLOBIN 2.2 % (0.5-1.5); DRAW SITE RR; HHB 0.7 % (0.0-5.0); METHEMOGLOBIN 1.4 % (0.0-3.0)
[2017-03-10] MEDS: (Novolin R) Insulin Human Regular 100 units/ml vial SC SCH ×4 (06:30→18:14)
[2017-03-10 06:33] LABS: BASO % 0.2 % (0.0-2.0); EOS # 0.1 K/uL (0.0-0.7); EOS % 0.8 % (0.0-4.0); HEMATOCRIT 27.3 % (35.0-51.0); LYMPH % 13.1 % (20.0-40.0); MEAN CELL VOLUME 90.7 fL (80.0-94.0); MEAN CORPUSCULAR HEMOGLOBIN 29.4 pg (27.0-31.0); MEAN CORPUSCULAR HGB CONC 32.4 g/dL (33.0-37.0); MEAN PLATELET VOLUME 9.6 fL (7.2-11.7); MONO # 0.5 K/uL (0.0-0.8); MONO % 6.3 % (0.0-10.0); RED CELL DISTRIBUTION WIDTH 16.2 % (11.5-14.5); WHITE BLOOD COUNT 7.6 K/uL (4.8-10.8)
[2017-03-10 06:42] LABS: POTASSIUM 3.6 mmol/L (3.6-5.2)
[2017-03-10 06:44] LABS: ALB/GLOB RATIO 0.7 (1.0-2.1); BILIRUBIN,TOTAL 0.7 mg/dL (0.2-1.3); TOTAL PROTEIN 6.9 g/dL (6.3-8.3)
[2017-03-10 06:45] LABS: CALCIUM 7.1 mg/dl (8.6-10.4); MAGNESIUM 1.9 mg/dL (1.6-2.3); PHOSPHOROUS 4.1 mg/dL (2.5-4.5)
--- NOTE | 2017-03-10 08:53 | PN ---
DATE: LOCATION: ICU 17. SUBJECTIVE: This is a 52-year-old male seen and examined at round, is still intubated with NG tube in place. No new significant clinical changes or no reported active bleeding. The entire chart is reviewed including, but not limited to the most recent lab and the radiology study results, current and the previous medication list, current and the previous medical events. Today's lab showed hemoglobin of 8.8 with hematocrit 27,3, with subsequent drop of platelet count to 119 with abnormal ABGs with increased BUN 55, creatinine 2.6, blood glucose level 251 with low calcium 7.1 and low albumin 2.9. PHYSICAL EXAMINATION GENERAL: A 52-year-old male, intubated, sedated with low-grade temperature 100.8 with pulse of 92, and blood pressure of 100/62. HEENT: Showed pale, dry oral mucous membrane. Nonicteric sclerae. The patient is intubated. LUNGS: Scattered crepitation. Decreased air entry at bases. HEART: Positive S1 and S2 with increased rate. ABDOMEN: Soft with slight distention. NG tube is in place. Bowel sounds are hypoactive. No mass or organomegaly. EXTREMITIES: With edematous changes. No clubbing or cyanosis. NEUROLOGIC: No new reported neurological deficits, sensory, or motor. IMPRESSION: 1. Malnutrition. 2. Dysphagia. 3. Hypoalbuminemia. 4. Respiratory failure, still intubated. 5. Coagulopathy, most likely drug induced. 6. Anemia secondary above. 7. The patient is a candidate for percutaneous gastrostomy insertion. 8. Acute renal failure. SUGGESTION: 1. Agree with your plan. 2. Correcting underlying coagulopathy. 3. Awaiting family. 4. Legal consent for potential PEG insertion as well as possible tracheostomy by Dr. Calin Koehler.. Yola Sim MD cc: Yola Sim MD
--- NOTE | 2017-03-10 09:33 | CP.PCM.PN ---
Subjective - Date & Time of Evaluation Date of Evaluation: 03/10/17 Time of Evaluation: 09:30 - Subjective Subjective: pt seen and examined no events overnight intubated, on vent, fio2 60% moves extremities, doesn't respond otherwise good UOP labs noted , Cr 2.6 K level improved ROS- unable to obtain as patient intubated and unresponsive Objective - Vital Signs/Intake and Output Vital Signs (last 24 hours): Temp Pulse Resp BP Pulse Ox 99.2 F 94 H 16 113/68 99 03/10/17 04:00 03/10/17 08:00 03/10/17 08:00 03/10/17 08:00 03/10/17 08:00 Intake and Output: 03/10/17 03/10/17 06:59 18:59 Intake Total 977.7 35.7 Output Total 1175 100 Balance -197.3 -64.3 - Medications Medications: Current Medications Acetaminophen (Tylenol 650mg/20.3ml Solution Ud) 650 mg PO Q4 PRN PRN Reason: temp >101 Last Admin: 03/09/17 12:22 Dose: 650 mg Albuterol/Ipratropium (Duoneb 3 Mg/0.5 Mg (3 Ml) Ud) 3 ml INH RQ6 TENA Last Admin: 03/10/17 07:29 Dose: 3 ml Artificial Tears (Lacri-Lube) 0 gm OS Q4H PRN PRN Reason: Other Last Admin: 03/06/17 14:23 Dose: 3.5 gm Calcium Acetate (Phoslo) 667 mg GT TIDCC [facility] Last Admin: 03/10/17 08:29 Dose: 667 mg Collagenase (Santyl) 0 gm TOP DAILY [facility] Heparin Sodium (Porcine) (Heparin) 5,000 units SC Q8 [facility] Last Admin: 03/10/17 06:00 Dose: 5,000 units Piperacillin Sod/Tazobactam Sod (Zosyn 2.25 Gm Iv Premix) 2.25 gm in 50 mls @ 100 mls/hr IVPB Q6H [facility] Last Admin: 03/10/17 08:51 Dose: 100 mls/hr Azithromycin 500 mg/ Sodium (Chloride) 250 mls @ 250 mls/hr IVPB DAILY [facility] Last Admin: 03/09/17 11:15 Dose: 250 mls/hr Vancomycin HCl/Dextrose (Vancocin) 500 mg in 100 mls @ 100 mls/hr IVPB DAILY [facility] Stop: 03/13/17 10:01 Last Admin: 03/09/17 11:00 Dose: 100 mls/hr Levetiracetam 500 mg/ Dextrose 105 mls @ 420 mls/hr IVPB Q12H [facility] Last Admin: 03/10/17 02:45 Dose: 420 mls/hr Lorazepam 20 mg/ Sodium (Chloride) 20 mls @ 0.77 mls/hr IV .Q24H [facility]; 0.01 MG/ KG/HR PRN Reason: Protocol Last Admin: 03/09/17 13:33 Dose: 0.01 mg/kg/hr, 0.77 mls/hr Insulin Human Regular (Novolin R) 0 unit SC Q6 [facility] PRN Reason: Protocol Last Admin: 03/10/17 06:30 Dose: 6 unit Pantoprazole Sodium (Protonix Inj) 40 mg IVP DAILY [facility] Last Admin: 03/09/17 11:14 Dose: 40 mg Phenobarbital (Phenobarbital Inj) 90 mg IV Q8 [facility] Last Admin: 03/10/17 06:50 Dose: 90 mg Potassium Chloride (Potassium Chloride Oral Soln) 20 meq GT ONCE [facility] Last Admin: 03/09/17 13:52 Dose: 20 meq - Labs Labs: 03/10/17 06:27 03/10/17 06:27 PT 15.6 SECONDS (9.7-12.2) H 03/04/17 19:55 INR 1.4 03/04/17 19:55 APTT 31 SECONDS (21-34) 03/04/17 19:55 - Constitutional Appears: Non-toxic, No Acute Distress - Head Exam Head Exam: ATRAUMATIC, NORMOCEPHALIC - Eye Exam Eye Exam: PERRL - ENT Exam Additional comments: ET tube in place - Respiratory Exam Respiratory Exam: Clear to Ausculation Bilateral. absent: Rhonchi, Wheezes - Cardiovascular Exam Cardiovascular Exam: REGULAR RHYTHM, +S1, +S2 - GI/Abdominal Exam GI & Abdominal Exam: Soft. absent: Guarding, Tenderness - Extremities Exam Extremities Exam: absent: Pedal Edema, Tenderness - Neurological Exam Neurological Exam: absent: Alert, Awake, Oriented x3 - Skin Skin Exam: Dry, Warm Assessment and Plan (1) SAUNDRA (acute kidney injury) Status: Acute (2) Anemia Status: Acute (3) CHF (congestive heart failure) Status: Acute (4) Cardiac arrest Status: Acute (5) Open wound of right foot with complication Status: Acute (6) Respiratory failure Status: Acute - Assessment and Plan (Free Text) Plan: good UOP cr stable electrolytes acceptable continue supportive care
--- NOTE | 2017-03-10 10:03 | RAD ---
Chest x-ray single frontal view History: Intubated. Comparison: 03/09/2017 Findings: Lines and tubes in stable position. Prominent opacification throughout both lungs with more consolidative changes in the mid to lower lung zones. Biapical pleural thickening with upper lobe granulomatous changes. Small bilateral pleural effusions. Right paratracheal opacity may represent prominent vasculature. Cardiomegaly. Degenerative changes in the spine and shoulders. Impression: Lines and tubes in stable position. Prominent opacification throughout both lungs with more consolidative changes in the mid to lower lung zones. Biapical pleural thickening with upper lobe granulomatous changes. Small bilateral pleural effusions. Right paratracheal opacity may represent prominent vasculature. Cardiomegaly.
[2017-03-10] MEDS: Azithromycin 500 MG in Sodium Chloride 0.9% 250 ML IVPB SCH (10:17)
--- NOTE | 2017-03-10 10:38 | CP.PCM.PN ---
Subjective - Date & Time of Evaluation Date of Evaluation: 03/10/17 Time of Evaluation: 11:20 - Subjective Subjective: clinically same Objective - Vital Signs/Intake and Output Vital Signs (last 24 hours): Temp Pulse Resp BP Pulse Ox 99.2 F 94 H 16 113/68 99 03/10/17 04:00 03/10/17 08:00 03/10/17 08:00 03/10/17 08:00 03/10/17 08:00 Intake and Output: 03/10/17 03/10/17 06:59 18:59 Intake Total 977.7 35.7 Output Total 1175 100 Balance -197.3 -64.3 - Medications Medications: Current Medications Acetaminophen (Tylenol 650mg/20.3ml Solution Ud) 650 mg PO Q4 PRN PRN Reason: temp >101 Last Admin: 03/09/17 12:22 Dose: 650 mg Albuterol/Ipratropium (Duoneb 3 Mg/0.5 Mg (3 Ml) Ud) 3 ml INH RQ6 [facility] Last Admin: 03/10/17 07:29 Dose: 3 ml Artificial Tears (Lacri-Lube) 0 gm OS Q4H PRN PRN Reason: Other Last Admin: 03/06/17 14:23 Dose: 3.5 gm Calcium Acetate (Phoslo) 667 mg GT TIDCC [facility] Last Admin: 03/10/17 08:29 Dose: 667 mg Collagenase (Santyl) 0 gm TOP DAILY [facility] Heparin Sodium (Porcine) (Heparin) 5,000 units SC Q8 [facility] Last Admin: 03/10/17 06:00 Dose: 5,000 units Piperacillin Sod/Tazobactam Sod (Zosyn 2.25 Gm Iv Premix) 2.25 gm in 50 mls @ 100 mls/hr IVPB Q6H [facility] Last Admin: 03/10/17 08:51 Dose: 100 mls/hr Azithromycin 500 mg/ Sodium (Chloride) 250 mls @ 250 mls/hr IVPB DAILY [facility] Last Admin: 03/10/17 10:17 Dose: 250 mls/hr Vancomycin HCl/Dextrose (Vancocin) 500 mg in 100 mls @ 100 mls/hr IVPB DAILY [facility] Stop: 03/13/17 10:01 Last Admin: 03/09/17 11:00 Dose: 100 mls/hr Levetiracetam 500 mg/ Dextrose 105 mls @ 420 mls/hr IVPB Q12H [facility] Last Admin: 03/10/17 02:45 Dose: 420 mls/hr Lorazepam 20 mg/ Sodium (Chloride) 20 mls @ 0.77 mls/hr IV .Q24H [facility]; 0.01 MG/ KG/HR PRN Reason: Protocol Last Admin: 03/09/17 13:33 Dose: 0.01 mg/kg/hr, 0.77 mls/hr Insulin Human Regular (Novolin R) 0 unit SC Q6 [facility] PRN Reason: Protocol Last Admin: 03/10/17 06:30 Dose: 6 unit Pantoprazole Sodium (Protonix Inj) 40 mg IVP DAILY [facility] Last Admin: 03/10/17 10:16 Dose: 40 mg Phenobarbital (Phenobarbital Inj) 90 mg IV Q8 [facility] Last Admin: 03/10/17 06:50 Dose: 90 mg Potassium Chloride (Potassium Chloride Oral Soln) 20 meq GT ONCE [facility] Last Admin: 03/09/17 13:52 Dose: 20 meq - Labs Labs: 03/10/17 06:27 03/10/17 06:27 PT 15.6 SECONDS (9.7-12.2) H 03/04/17 19:55 INR 1.4 03/04/17 19:55 APTT 31 SECONDS (21-34) 03/04/17 19:55 - Constitutional Appears: Well - Head Exam Head Exam: ATRAUMATIC, NORMAL INSPECTION, NORMOCEPHALIC - Eye Exam Eye Exam: EOMI, Normal appearance, PERRL Pupil Exam: NORMAL ACCOMODATION, PERRL - ENT Exam ENT Exam: Mucous Membranes Moist, Normal Exam - Neck Exam Neck Exam: Full ROM, Normal Inspection. absent: Lymphadenopathy - Respiratory Exam Respiratory Exam: Decreased Breath Sounds - Cardiovascular Exam Cardiovascular Exam: REGULAR RHYTHM, +S1, +S2 - GI/Abdominal Exam GI & Abdominal Exam: Soft, Diminished Bowel Sounds - Rectal Exam Rectal Exam: Deferred Assessment and Plan (1) Anemia Status: Acute (2) Anoxic encephalopathy Status: Acute (3) Anoxic encephalopathy Status: Acute (4) CHF (congestive heart failure) Status: Acute (5) Cardiac arrest Status: Acute (6) Coagulopathy Status: Acute (7) Open wound of right foot with complication Status: Acute (8) Respiratory failure Status: Acute (9) SAUNDRA (acute kidney injury) Status: Resolved - Assessment and Plan (Free Text) Plan: Patient examined. Patient clinically the same. Continued piperacillin tazobactam, azithromycin, vancomycin. Continue on supportive treatment.
--- NOTE | 2017-03-10 10:51 | CP.PCM.PN ---
<Uriel Guzman - Last Filed: 03/10/17 10:49> Subjective - Date & Time of Evaluation Date of Evaluation: 03/10/17 Time of Evaluation: 10:49 - Subjective Subjective: pt seen for ulcer right hallux amp site . Objective - Vital Signs/Intake and Output Vital Signs (last 24 hours): Temp Pulse Resp BP Pulse Ox 99.2 F 94 H 16 113/68 99 03/10/17 04:00 03/10/17 08:00 03/10/17 08:00 03/10/17 08:00 03/10/17 08:00 Intake and Output: 03/10/17 03/10/17 06:59 18:59 Intake Total 977.7 35.7 Output Total 1175 100 Balance -197.3 -64.3 - Medications Medications: Current Medications Acetaminophen (Tylenol 650mg/20.3ml Solution Ud) 650 mg PO Q4 PRN PRN Reason: temp >101 Last Admin: 03/09/17 12:22 Dose: 650 mg Albuterol/Ipratropium (Duoneb 3 Mg/0.5 Mg (3 Ml) Ud) 3 ml INH RQ6 [facility] Last Admin: 03/10/17 07:29 Dose: 3 ml Artificial Tears (Lacri-Lube) 0 gm OS Q4H PRN PRN Reason: Other Last Admin: 03/06/17 14:23 Dose: 3.5 gm Calcium Acetate (Phoslo) 667 mg GT TIDCC [facility] Last Admin: 03/10/17 08:29 Dose: 667 mg Collagenase (Santyl) 0 gm TOP DAILY [facility] Heparin Sodium (Porcine) (Heparin) 5,000 units SC Q8 [facility] Last Admin: 03/10/17 06:00 Dose: 5,000 units Piperacillin Sod/Tazobactam Sod (Zosyn 2.25 Gm Iv Premix) 2.25 gm in 50 mls @ 100 mls/hr IVPB Q6H [facility] Last Admin: 03/10/17 08:51 Dose: 100 mls/hr Azithromycin 500 mg/ Sodium (Chloride) 250 mls @ 250 mls/hr IVPB DAILY [facility] Last Admin: 03/10/17 10:17 Dose: 250 mls/hr Vancomycin HCl/Dextrose (Vancocin) 500 mg in 100 mls @ 100 mls/hr IVPB DAILY [facility] Stop: 03/13/17 10:01 Last Admin: 03/09/17 11:00 Dose: 100 mls/hr Levetiracetam 500 mg/ Dextrose 105 mls @ 420 mls/hr IVPB Q12H [facility] Last Admin: 03/10/17 02:45 Dose: 420 mls/hr Lorazepam 20 mg/ Sodium (Chloride) 20 mls @ 0.77 mls/hr IV .Q24H [facility]; 0.01 MG/ KG/HR PRN Reason: Protocol Last Admin: 03/09/17 13:33 Dose: 0.01 mg/kg/hr, 0.77 mls/hr Insulin Human Regular (Novolin R) 0 unit SC Q6 [facility] PRN Reason: Protocol Last Admin: 03/10/17 06:30 Dose: 6 unit Pantoprazole Sodium (Protonix Inj) 40 mg IVP DAILY [facility] Last Admin: 03/10/17 10:16 Dose: 40 mg Phenobarbital (Phenobarbital Inj) 90 mg IV Q8 [facility] Last Admin: 03/10/17 06:50 Dose: 90 mg Potassium Chloride (Potassium Chloride Oral Soln) 20 meq GT ONCE [facility] Last Admin: 03/09/17 13:52 Dose: 20 meq - Labs Labs: 03/10/17 06:27 03/10/17 06:27 PT 15.6 SECONDS (9.7-12.2) H 03/04/17 19:55 INR 1.4 03/04/17 19:55 APTT 31 SECONDS (21-34) 03/04/17 19:55 <Jeannie Ellis - Last Filed: 03/10/17 13:25> Subjective - Subjective Subjective: 52 yo male patient with PMHx of NIDDM, HTN, Cardiac arrest was seen at bedside ICU this morning concerning open wound to right foot hallux amputation site. Patient on CPAP not able to communicate. Patient's friends at bedside. Dressing to right foot appears clean dry and intact. Objective - Vital Signs/Intake and Output Vital Signs (last 24 hours): Temp Pulse Resp BP Pulse Ox 98.3 F 105 H 17 111/74 97 03/10/17 08:00 03/10/17 11:01 03/10/17 11:01 03/10/17 11:01 03/10/17 11:01 Intake and Output: 03/10/17 03/10/17 06:59 18:59 Intake Total 977.7 442.8 Output Total 1175 550 Balance -197.3 -107.2 - Medications Medications: Current Medications Acetaminophen (Tylenol 650mg/20.3ml Solution Ud) 650 mg PO Q4 PRN PRN Reason: temp >101 Last Admin: 03/09/17 12:22 Dose: 650 mg Albuterol/Ipratropium (Duoneb 3 Mg/0.5 Mg (3 Ml) Ud) 3 ml INH RQ6 [facility] Last Admin: 03/10/17 13:04 Dose: 3 ml Artificial Tears (Lacri-Lube) 0 gm OS Q4H PRN PRN Reason: Other Last Admin: 03/06/17 14:23 Dose: 3.5 gm Calcium Acetate (Phoslo) 667 mg GT TIDCC [facility] Last Admin: 03/10/17 12:05 Dose: 667 mg Collagenase (Santyl) 0 gm TOP DAILY [facility] Last Admin: 03/10/17 12:05 Dose: 1 applic Heparin Sodium (Porcine) (Heparin) 5,000 units SC Q8 [facility] Last Admin: 03/10/17 06:00 Dose: 5,000 units Piperacillin Sod/Tazobactam Sod (Zosyn 2.25 Gm Iv Premix) 2.25 gm in 50 mls @ 100 mls/hr IVPB Q6H [facility] Last Admin: 03/10/17 08:51 Dose: 100 mls/hr Azithromycin 500 mg/ Sodium (Chloride) 250 mls @ 250 mls/hr IVPB DAILY [facility] Last Admin: 03/10/17 10:17 Dose: 250 mls/hr Vancomycin HCl/Dextrose (Vancocin) 500 mg in 100 mls @ 100 mls/hr IVPB DAILY [facility] Stop: 03/13/17 10:01 Last Admin: 03/10/17 11:08 Dose: 100 mls/hr Levetiracetam 500 mg/ Dextrose 105 mls @ 420 mls/hr IVPB Q12H [facility] Last Admin: 03/10/17 02:45 Dose: 420 mls/hr Lorazepam 20 mg/ Sodium (Chloride) 20 mls @ 0.77 mls/hr IV .Q24H [facility]; 0.01 MG/ KG/HR PRN Reason: Protocol Last Admin: 03/09/17 13:33 Dose: 0.01 mg/kg/hr, 0.77 mls/hr Insulin Human Regular (Novolin R) 0 unit SC Q6 [facility] PRN Reason: Protocol Last Admin: 03/10/17 12:08 Dose: 2 unit Pantoprazole Sodium (Protonix Inj) 40 mg IVP DAILY [facility] Last Admin: 03/10/17 10:16 Dose: 40 mg Phenobarbital (Phenobarbital Inj) 90 mg IV Q8 [facility] Last Admin: 03/10/17 06:50 Dose: 90 mg Potassium Chloride (Potassium Chloride Oral Soln) 20 meq GT ONCE [facility] Last Admin: 03/09/17 13:52 Dose: 20 meq - Labs Labs: 03/10/17 06:27 03/10/17 06:27 PT 13.6 SECONDS (9.7-12.2) H 03/10/17 12:24 INR 1.2 03/10/17 12:24 APTT 32 SECONDS (21-34) 03/10/17 12:24 - Constitutional Appears: No Acute Distress - Extremities Exam Additional comments: Right lower extremity exam DERM: Open wound noted to medial aspect of right Hallux amputation site measuring 3.5cm x 2cm x 0.6cm with mostly fibrotic base. Mild purulent drainage is noted with slightly macerated wound margins. Wen wound erythema measures < 1cm margin. Mal-odor is present. VASC: Palpable DP noted at 1/4, non-palpable PT noted. [employer] less than 3 seconds to all digits noted. Assessment and Plan - Assessment and Plan (Free Text) Assessment: 52 yo male patient presenting with open wound to right Hallux amputation site Plan: patient seen and evaluated at bedside labs and vitals reviewed WBC 7.6 Right foot dressed with betadine, DSD. Santyl ordered Podiatry continue to follow In house Thank you for the opportunity for treating the patient
[2017-03-10] MEDS: Vancomycin 500mg/D5W 100 ml 500 MG/100 ML BAG IVPB SCH (11:08)
[2017-03-10] MEDS: Collagenase 250 Units/gm Ointment(30 gm) TOP SCH (12:05)
[2017-03-10 12:39] LABS: INR 1.2
--- NOTE | 2017-03-10 12:47 | PN ---
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 PHYSICAL EXAMINATION: VITAL SIGNS: Blood pressure 107/60, mean arterial pressure of 76, respiratory rate 16, temperature afebrile, pulse rate 94. GENERAL: The patient is requiring dual antiepileptic drugs because of seizures. The patient is sedated and comatose. NEUROLOGIC: Eyes are closed. No corneal reflex. No gag. The patient is quadriplegic. The patient is getting phenobarbital and Keppra. On discontinuing propofol, the patient does show recurrent seizures. At this point, the seizure is not controllable because of irreversible SLOT MACHINE F[employer]OR PERSON insult. Overall, prognosis is very poor. In long-term management, the patient should be on tracheostomy and PEG placement, otherwise, terminal extubation is recommended. Ronnie Rascon MD
[2017-03-10] MEDS: LORAZEPAM IV SCH ×2 (15:58→20:49)
[2017-03-10] MEDS: SODIUM CHLORIDE 0.9% IV SCH ×2 (15:58→20:49)
--- NOTE | 2017-03-10 17:43 | CT ---
PROCEDURE: CT HEAD WITHOUT CONTRAST. HISTORY: anoxia COMPARISON: Head CT 03/06/2017 without contrast. TECHNIQUE: Axial computed tomography images were obtained through the head/brain without intravenous contrast. Radiation dose: Total exam DLP = 1414.87 mGy-cm. This CT exam was performed using one or more of the following dose reduction techniques: Automated exposure control, adjustment of the mA and/or kV according to patient size, and/or use of iterative reconstruction technique. FINDINGS: HEMORRHAGE: No intracranial hemorrhage. BRAIN: There is no corticomedullary differentiation appreciated with the entire brain appear edematous. There is a loss sulcation in general the limited residual seen at the mid to superior cerebral levels. The ventricular system is intact. Diffuse edema suggests anoxic insult which agrees with clinical history. The basilar cisterns remain patent without severe subuncal or subfalcine herniation at this time. VENTRICLES: Unremarkable. No hydrocephalus. CALVARIUM: Unremarkable. PARANASAL SINUSES: Unremarkable as visualized. No significant inflammatory changes. MASTOID AIR CELLS: Unremarkable as visualized. No inflammatory changes. OTHER FINDINGS: None. IMPRESSION: Diffuse cerebral edema with complete loss of corticomedullary differentiation can be seen in global anoxic insult. Clinically correlate. No intracranial hemorrhage.
--- NOTE | 2017-03-10 18:31 | CP.CCUPN ---
CCU Subjective - Physician Review Events Since Last Encounter (Free Text): 03/10/17 18:31 This 52-year-old male admitted to cardiac arrest. History of diabetes hypertension peripheral vascular disease. Prognosis very poor Not responding. Anoxia Status epilepticus also identified. Currently on multiple antiepileptic medication Chest good air entry, regular heart center Regular. Soft Abdomen. Edema 1+ Laboratory X-Ray Reviewed Assessment and Condition: 55-year-old Male with a History of Hypertension Diabetes O Basis. Cardiac Arrest. Anoxic Encephalopathy. Prognosis Very Poor Family Meeting Needed. Possible Tracheostomy. CCU Objective - Vital Signs / Intake & Output Vital Signs (Last 4 hours): Vital Signs Pulse Resp BP Pulse Ox 03/10/17 17:01 116/69 03/10/17 17:00 103 H 21 98 03/10/17 16:01 96 H 18 105/61 99 03/10/17 16:00 95 H 17 99 03/10/17 15:01 104 H 21 116/62 97 03/10/17 15:00 104 H 19 97 Intake and Output (Last 8hrs): Intake & Output 03/10/17 03/10/17 03/10/17 06:59 14:59 22:59 Intake Total 585.6 785.6 105.7 Output Total 815 1045 120 Balance -229.4 -259.4 -14.3 Weight 176 lb Intake: IV 20 Intake, IV Amount 155.6 405.6 50.7 Right Antecubital 5.6 400.7 50 Right Hand 150 4.9 0.7 Tube Feeding 280 280 35 Other 150 100 Output: Urine 815 1045 120 Urethral (Grant) 815 1045 120 Other: # Bowel Movements 0 0 - Physical Exam Head: Positive for: Atraumatic, Normocephalic Mouth: Positive for: Moist Mucous Membranes Respiratory/Chest: Positive for: Rales Cardiovascular: Positive for: Regular Rate and Rhythm, Normal S1, S2 Abdomen: Negative for: Distention Lower Extremity: Positive for: Other (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 Negative for: Alert, Oriented x 3 - Medications Active Medications: Active Medications Generic Name Dose Route Start Last Admin Trade Name Freq PRN Reason Stop Dose Admin Acetaminophen 650 mg 03/05/17 22:55 03/09/17 12:22 Tylenol 650mg/20.3ml Solution Ud PO 650 mg Q4 PRN Administration temp >101 Albuterol/Ipratropium 3 ml 03/10/17 20:00 Duoneb 3 Mg/0.5 Mg (3 Ml) Ud INH RQ6 TENA Artificial Tears 0 gm 03/06/17 10:04 03/06/17 14:23 Lacri-Lube OS 3.5 gm Q4H PRN Administration Other Calcium Acetate 667 mg 03/08/17 10:00 03/10/17 18:14 Phoslo GT 667 mg TIDCC TENA Administration Collagenase 0 gm 03/10/17 10:00 03/10/17 12:05 Santyl TOP 1 applic DAILY TENA Administration Heparin Sodium (Porcine) 5,000 units 03/05/17 06:00 03/10/17 14:00 Heparin SC 5,000 units Q8 TENA Administration Piperacillin Sod/Tazobactam Sod 2.25 gm in 50 mls @ 100 mls/hr 03/04/17 21:30 03/10/17 15:09 Zosyn 2.25 Gm Iv Premix IVPB 100 mls/hr Q6H TENA Administration Vancomycin HCl/Dextrose 500 mg in 100 mls @ 100 mls/hr 03/08/17 11:00 11:08 Vancocin IVPB 03/13/17 10:01 100 mls/hr DAILY TENA Administration Levetiracetam 500 mg/ Dextrose 105 mls @ 420 mls/hr 03/08/17 14:45 03/10/17 14:00 IVPB 420 mls/hr Q12H TENA Administration Lorazepam 20 mg/ Sodium 20 mls @ 0.77 mls/hr 03/09/17 12:15 03/10/17 15:58 Chloride IV 0.01 mg/kg/hr .Q24H TENA 0.77 mls/hr Protocol Administration 0.01 MG/KG/HR Azithromycin 500 mg/ Sodium 250 mls @ 250 mls/hr 03/11/17 10:00 Chloride IVPB DAILY TENA Insulin Human Regular 0 unit 03/08/17 09:35 03/10/17 18:14 Novolin R SC 4 unit Q6 TENA Administration Protocol Pantoprazole Sodium 40 mg 03/05/17 10:00 03/10/17 10:16 Protonix Inj IVP 40 mg DAILY TENA Administration Phenobarbital 90 mg 03/10/17 06:00 03/10/17 14:00 Phenobarbital Inj IV 90 mg Q8 TENA Administration Potassium Chloride 20 meq 03/09/17 13:15 03/09/17 13:52 Potassium Chloride Oral Soln GT 20 meq ONCE TENA Administration - Patient Studies Lab Studies: Microbiology Studies 03/04/17 20:30 Blood Culture - Final Blood NO GROWTH AFTER 5 DAYS Gram Stain - Final TEST NOT PERFORMED 03/04/17 21:00 Blood Culture - Final Blood NO GROWTH AFTER 5 DAYS Gram Stain - Final TEST NOT PERFORMED Lab Studies 03/10/17 03/10/17 03/10/17 Range/Units 17:39 12:24 12:06 WBC (4.8-10.8) K/uL RBC (4.40-5.90) Mil/uL Hgb (12.0-18.0) g/dL Hct (35.0-51.0) % MCV (80.0-94.0) fL MCH (27.0-31.0) pg MCHC (33.0-37.0) g/dL RDW (11.5-14.5) % Plt Count (130-400) K/uL MPV (7.2-11.7) fL Neut % (Auto) (50.0-75.0) % Lymph % (Auto) (20.0-40.0) % Sutton % (Auto) (0.0-10.0) % Eos % (Auto) (0.0-4.0) % Baso % (Auto) (0.0-2.0) % Neut # (1.8-7.0) K/uL Lymph # (1.0-4.3) K/uL Sutton # (0.0-0.8) K/uL Eos # (0.0-0.7) K/uL Baso # (0.0-0.2) K/uL Differential Comment PT 13.6 H (9.7-12.2) SECONDS INR 1.2 APTT 32 (21-34) SECONDS Fibrinogen 588 H (200-400) mg/dL Puncture Site pCO2 (35-45) mm/Hg pO2 (80-100) mm/Hg HCO3 (21-28) mmol/L ABG pH (7.35-7.45) ABG Total CO2 (22-28) mmol/L ABG O2 Saturation (95-98) % ABG Base Excess (-2.0-3.0) mmol/L ABG Hemoglobin (11.7-17.4) g/dL ABG Carboxyhemoglobin (0.5-1.5) % POC ABG HHb (Measured) (0.0-5.0) % ABG Methemoglobin (0.0-3.0) % Reji Test A-a O2 Difference mm/Hg Respiratory Index Hgb O2 Saturation (95.0-98.0) % Vent Mode Mechanical Rate FiO2 % Tidal Volume PEEP Sodium (132-148) mmol/L Potassium (3.6-5.2) mmol/L Chloride (98-107) mmol/L Carbon Dioxide (22-30) mmol/L Anion Gap (10-20) BUN (9-20) mg/dL Creatinine (0.8-1.5) mg/dL Est GFR ( Amer) Est GFR (Non-Af Amer) POC Glucose (mg/dL) 232 H 194 H (65-110) mg/dL Random Glucose (75-110) mg/dL Calcium (8.6-10.4) mg/dl Phosphorus (2.5-4.5) mg/dL Magnesium (1.6-2.3) mg/dL Total Bilirubin (0.2-1.3) mg/dL AST (17-59) U/L ALT (21-72) U/L Alkaline Phosphatase (38-126) U/L Total Protein (6.3-8.3) g/dL Albumin (3.5-5.0) g/dL Globulin (2.2-3.9) gm/dL Albumin/Globulin Ratio (1.0-2.1) 03/10/17 03/10/17 03/10/17 Range/Units 06:27 06:27 06:01 WBC 7.6 (4.8-10.8) K/uL RBC 3.00 L (4.40-5.90) Mil/uL Hgb 8.8 L (12.0-18.0) g/dL Hct 27.3 L (35.0-51.0) % MCV 90.7 (80.0-94.0) fL MCH 29.4 (27.0-31.0) pg MCHC 32.4 L (33.0-37.0) g/dL RDW 16.2 H (11.5-14.5) % Plt Count 119 L (130-400) K/uL MPV 9.6 (7.2-11.7) fL Neut % (Auto) 79.6 H (50.0-75.0) % Lymph % (Auto) 13.1 L (20.0-40.0) % Sutton % (Auto) 6.3 (0.0-10.0) % Eos % (Auto) 0.8 (0.0-4.0) % Baso % (Auto) 0.2 (0.0-2.0) % Neut # 6.0 (1.8-7.0) K/uL Lymph # 1.0 (1.0-4.3) K/uL Sutton # 0.5 (0.0-0.8) K/uL Eos # 0.1 (0.0-0.7) K/uL Baso # 0.0 (0.0-0.2) K/uL Differential Comment PT (9.7-12.2) SECONDS INR APTT (21-34) SECONDS Fibrinogen (200-400) mg/dL Puncture Site pCO2 (35-45) mm/Hg pO2 (80-100) mm/Hg HCO3 (21-28) mmol/L ABG pH (7.35-7.45) ABG Total CO2 (22-28) mmol/L ABG O2 Saturation (95-98) % ABG Base Excess (-2.0-3.0) mmol/L ABG Hemoglobin (11.7-17.4) g/dL ABG Carboxyhemoglobin (0.5-1.5) % POC ABG HHb (Measured) (0.0-5.0) % ABG Methemoglobin (0.0-3.0) % Reji Test A-a O2 Difference mm/Hg Respiratory Index Hgb O2 Saturation (95.0-98.0) % Vent Mode Mechanical Rate FiO2 % Tidal Volume PEEP Sodium 143 (132-148) mmol/L Potassium 3.6 (3.6-5.2) mmol/L Chloride 104 (98-107) mmol/L Carbon Dioxide 27 (22-30) mmol/L Anion Gap 16 (10-20) BUN 55 H (9-20) mg/dL Creatinine 2.6 H (0.8-1.5) mg/dL Est GFR ( Amer) 32 Est GFR (Non-Af Amer) 26 POC Glucose (mg/dL) 251 H (65-110) mg/dL Random Glucose 219 H (75-110) mg/dL Calcium 7.1 L (8.6-10.4) mg/dl Phosphorus 4.1 (2.5-4.5) mg/dL Magnesium 1.9 (1.6-2.3) mg/dL Total Bilirubin 0.7 (0.2-1.3) mg/dL AST 52 (17-59) U/L ALT 72 (21-72) U/L Alkaline Phosphatase 77 (38-126) U/L Total Protein 6.9 (6.3-8.3) g/dL Albumin 2.9 L (3.5-5.0) g/dL Globulin 4.0 H (2.2-3.9) gm/dL Albumin/Globulin Ratio 0.7 L (1.0-2.1) 03/10/17 03/09/17 Range/Units 05:10 23:59 WBC (4.8-10.8) K/uL RBC (4.40-5.90) Mil/uL Hgb (12.0-18.0) g/dL Hct (35.0-51.0) % MCV (80.0-94.0) fL MCH (27.0-31.0) pg MCHC (33.0-37.0) g/dL RDW (11.5-14.5) % Plt Count (130-400) K/uL MPV (7.2-11.7) fL Neut % (Auto) (50.0-75.0) % Lymph % (Auto) (20.0-40.0) % Sutton % (Auto) (0.0-10.0) % Eos % (Auto) (0.0-4.0) % Baso % (Auto) (0.0-2.0) % Neut # (1.8-7.0) K/uL Lymph # (1.0-4.3) K/uL Sutton # (0.0-0.8) K/uL Eos # (0.0-0.7) K/uL Baso # (0.0-0.2) K/uL Differential Comment PT (9.7-12.2) SECONDS INR APTT (21-34) SECONDS Fibrinogen (200-400) mg/dL Puncture Site Rr pCO2 40 (35-45) mm/Hg pO2 118 H (80-100) mm/Hg HCO3 30.1 H (21-28) mmol/L ABG pH 7.49 H (7.35-7.45) ABG Total CO2 31.7 H (22-28) mmol/L ABG O2 Saturation 99.3 H (95-98) % ABG Base Excess 6.6 H (-2.0-3.0) mmol/L ABG Hemoglobin 8.6 L (11.7-17.4) g/dL ABG Carboxyhemoglobin 2.2 H (0.5-1.5) % POC ABG HHb (Measured) 0.7 (0.0-5.0) % ABG Methemoglobin 1.4 (0.0-3.0) % Reji Test Pos A-a O2 Difference 260.0 mm/Hg Respiratory Index 2.2 Hgb O2 Saturation 95.6 (95.0-98.0) % Vent Mode Prvc Mechanical Rate 16 FiO2 60.0 % Tidal Volume 450 PEEP 5 Sodium (132-148) mmol/L Potassium (3.6-5.2) mmol/L Chloride (98-107) mmol/L Carbon Dioxide (22-30) mmol/L Anion Gap (10-20) BUN (9-20) mg/dL Creatinine (0.8-1.5) mg/dL Est GFR ( Amer) Est GFR (Non-Af Amer) POC Glucose (mg/dL) 239 H (65-110) mg/dL Random Glucose (75-110) mg/dL Calcium (8.6-10.4) mg/dl Phosphorus (2.5-4.5) mg/dL Magnesium (1.6-2.3) mg/dL Total Bilirubin (0.2-1.3) mg/dL AST (17-59) U/L ALT (21-72) U/L Alkaline Phosphatase (38-126) U/L Total Protein (6.3-8.3) g/dL Albumin (3.5-5.0) g/dL Globulin (2.2-3.9) gm/dL Albumin/Globulin Ratio (1.0-2.1) Laboratory Results - last 24 hr 03/09/17 03/10/17 03/10/17 23:59 05:10 06:01 WBC RBC Hgb Hct MCV MCH MCHC RDW Plt Count MPV Neut % (Auto) Lymph % (Auto) Sutton % (Auto) Eos % (Auto) Baso % (Auto) Neut # Lymph # Sutton # Eos # Baso # Differential Comment PT INR APTT Fibrinogen Puncture Site Rr pCO2 40 pO2 118 H HCO3 30.1 H ABG pH 7.49 H ABG Total CO2 31.7 H ABG O2 Saturation 99.3 H ABG Base Excess 6.6 H ABG Hemoglobin 8.6 L ABG Carboxyhemoglobin 2.2 H POC ABG HHb (Measured) 0.7 ABG Methemoglobin 1.4 Reji Test Pos A-a O2 Difference 260.0 Respiratory Index 2.2 Hgb O2 Saturation 95.6 Vent Mode Prvc Mechanical Rate 16 FiO2 60.0 Tidal Volume 450 PEEP 5 Sodium Potassium Chloride Carbon Dioxide Anion Gap BUN Creatinine Est GFR ( Amer) Est GFR (Non-Af Amer) POC Glucose (mg/dL) 239 H 251 H Random Glucose Calcium Phosphorus Magnesium Total Bilirubin AST ALT Alkaline Phosphatase Total Protein Albumin Globulin Albumin/Globulin Ratio 03/10/17 03/10/17 03/10/17 06:27 06:27 12:06 WBC 7.6 RBC 3.00 L Hgb 8.8 L Hct 27.3 L MCV 90.7 MCH 29.4 MCHC 32.4 L RDW 16.2 H Plt Count 119 L MPV 9.6 Neut % (Auto) 79.6 H Lymph % (Auto) 13.1 L Sutton % (Auto) 6.3 Eos % (Auto) 0.8 Baso % (Auto) 0.2 Neut # 6.0 Lymph # 1.0 Sutton # 0.5 Eos # 0.1 Baso # 0.0 Differential Comment PT INR APTT Fibrinogen Puncture Site pCO2 pO2 HCO3 ABG pH ABG Total CO2 ABG O2 Saturation ABG Base Excess ABG Hemoglobin ABG Carboxyhemoglobin POC ABG HHb (Measured) ABG Methemoglobin Reji Test A-a O2 Difference Respiratory Index Hgb O2 Saturation Vent Mode Mechanical Rate FiO2 Tidal Volume PEEP Sodium 143 Potassium 3.6 Chloride 104 Carbon Dioxide 27 Anion Gap 16 BUN 55 H Creatinine 2.6 H Est GFR ( Amer) 32 Est GFR (Non-Af Amer) 26 POC Glucose (mg/dL) 194 H Random Glucose 219 H Calcium 7.1 L Phosphorus 4.1 Magnesium 1.9 Total Bilirubin 0.7 AST 52 ALT 72 Alkaline Phosphatase 77 Total Protein 6.9 Albumin 2.9 L Globulin 4.0 H Albumin/Globulin Ratio 0.7 L 03/10/17 03/10/17 12:24 17:39 WBC RBC Hgb Hct MCV MCH MCHC RDW Plt Count MPV Neut % (Auto) Lymph % (Auto) Sutton % (Auto) Eos % (Auto) Baso % (Auto) Neut # Lymph # Sutton # Eos # Baso # Differential Comment PT 13.6 H INR 1.2 APTT 32 Fibrinogen 588 H Puncture Site pCO2 pO2 HCO3 ABG pH ABG Total CO2 ABG O2 Saturation ABG Base Excess ABG Hemoglobin ABG Carboxyhemoglobin POC ABG HHb (Measured) ABG Methemoglobin Reji Test A-a O2 Difference Respiratory Index Hgb O2 Saturation Vent Mode Mechanical Rate FiO2 Tidal Volume PEEP Sodium Potassium Chloride Carbon Dioxide Anion Gap BUN Creatinine Est GFR ( Amer) Est GFR (Non-Af Amer) POC Glucose (mg/dL) 232 H Random Glucose Calcium Phosphorus Magnesium Total Bilirubin AST ALT Alkaline Phosphatase Total Protein Albumin Globulin Albumin/Globulin Ratio Fingerstick Blood Sugar Results: 232
[2017-03-11] MEDS: (Novolin R) Insulin Human Regular 100 units/ml vial SC SCH ×4 (00:46→20:00)
[2017-03-11] MEDS: Acetaminophen 650mg/20.3ml solution UD PO PRN (00:46)
[2017-03-11] MEDS: Albuterol-Ipratrop 3 mg / 0.5 (3 ml) UD INH SCH ×4 (01:25→19:59)
[2017-03-11] MEDS: Piperacill/Tazo 2.25gm in Dex 2.25 GM/50 ML BAG IVPB SCH ×4 (03:21→21:26)
[2017-03-11 05:47] LABS: BASO % 0.3 % (0.0-2.0); EOS # 0.2 K/uL (0.0-0.7); EOS % 2.6 % (0.0-4.0); HEMATOCRIT 26.4 % (35.0-51.0); LYMPH % 13.9 % (20.0-40.0); MEAN CELL VOLUME 90.6 fL (80.0-94.0); MEAN CORPUSCULAR HEMOGLOBIN 29.9 pg (27.0-31.0); MEAN PLATELET VOLUME 9.5 fL (7.2-11.7); MONO # 0.5 K/uL (0.0-0.8); MONO % 7.3 % (0.0-10.0); RED CELL DISTRIBUTION WIDTH 15.7 % (11.5-14.5); WHITE BLOOD COUNT 7.2 K/uL (4.8-10.8)
[2017-03-11 05:48] LABS: ABG ALLEN TEST POS; ABG MECHANICAL RATE 16; ARTERIAL BLOOD GAS MODE PRVC; ARTERIAL BLOOD HGB O2 SAT 96.3 % (95.0-98.0); ATERIAL BLOOD GAS PEEP 5; CARBOXYHEMOGLOBIN 1.3 % (0.5-1.5); DRAW SITE RR; HHB 1.6 % (0.0-5.0); METHEMOGLOBIN 0.8 % (0.0-3.0)
[2017-03-11 06:06] LABS: POTASSIUM 3.6 mmol/L (3.6-5.2)
[2017-03-11 06:09] LABS: KAPPA/LAMBDA FREE RATIO 1.96 (0.26-1.65)
[2017-03-11 06:09] LABS: CALCIUM 7.5 mg/dl (8.6-10.4)
[2017-03-11] MEDS: Collagenase 250 Units/gm Ointment(30 gm) TOP SCH (09:02)
[2017-03-11] MEDS: Azithromycin 500 MG in Sodium Chloride 0.9% 250 ML IVPB SCH (09:40)
[2017-03-11] MEDS: Vancomycin 500mg/D5W 100 ml 500 MG/100 ML BAG IVPB SCH (10:00)
--- NOTE | 2017-03-11 13:05 | PN ---
DATE: LOCATION: ICU 17. SUBJECTIVE: This is a 52-year-old male seen and examined in rounds. Case was discussed with staff in the Intensive Care Unit. The patient is still intubated on NG tube. No new significant clinical changes or new neurological deficits. The patient is still have low hemoglobin of 8.7 and hematocrit 26.4 with thrombocytopenia of abnormal ABGs and increased BUN of 54, creatinine of 2.6, and blood glucose of 167 with low albumin. DIAGNOSTIC DATA: The patient had a head CAT scan done yesterday, report is as seen. IMPRESSION: 1. Respiratory failure. The patient is intubated. 2. Malnutrition. 3. Anemia. 4. The patient is a candidate for a percutaneous endoscopic gastrostomy insertion as well as tracheostomy. SUGGESTIONS: 1. Continue current management. 2. Schedule for PEG insertion when the family is agreeable to. No legal official consent obtained. Yola Sim MD cc: Yola Sim MD
--- NOTE | 2017-03-11 14:23 | CP.PCM.PN ---
Subjective - Date & Time of Evaluation Date of Evaluation: 03/11/17 Time of Evaluation: 09:00 - Subjective Subjective: remains unresponsive/ vented IV rx in progress poor prognosis Objective - Vital Signs/Intake and Output Vital Signs (last 24 hours): Temp Pulse Resp BP Pulse Ox 98.6 F 90 17 101/64 100 03/11/17 08:00 03/11/17 11:00 03/11/17 11:00 03/11/17 11:00 03/11/17 11:00 Intake and Output: 03/11/17 03/11/17 06:59 18:59 Intake Total 702.7 366 Output Total 1025 600 Balance -322.3 -234 - Medications Medications: Current Medications Acetaminophen (Tylenol 650mg/20.3ml Solution Ud) 650 mg PO Q4 PRN PRN Reason: temp >101 Last Admin: 03/11/17 00:46 Dose: 650 mg Albuterol/Ipratropium (Duoneb 3 Mg/0.5 Mg (3 Ml) Ud) 3 ml INH RQ6 TENA Last Admin: 03/11/17 13:19 Dose: 3 ml Artificial Tears (Lacri-Lube) 0 gm OS Q4H PRN PRN Reason: Other Last Admin: 03/06/17 14:23 Dose: 3.5 gm Calcium Acetate (Phoslo) 667 mg GT TIDCC TENA Last Admin: 03/11/17 12:40 Dose: 667 mg Collagenase (Santyl) 0 gm TOP DAILY TENA Last Admin: 03/11/17 09:02 Dose: 1 applic Heparin Sodium (Porcine) (Heparin) 5,000 units SC Q8 TENA Last Admin: 03/11/17 13:25 Dose: 5,000 units Piperacillin Sod/Tazobactam Sod (Zosyn 2.25 Gm Iv Premix) 2.25 gm in 50 mls @ 100 mls/hr IVPB Q6H [facility] Last Admin: 03/11/17 09:03 Dose: 100 mls/hr Vancomycin HCl/Dextrose (Vancocin) 500 mg in 100 mls @ 100 mls/hr IVPB DAILY TENA Stop: 03/13/17 10:01 Last Admin: 03/11/17 10:00 Dose: 100 mls/hr Levetiracetam 500 mg/ Dextrose 105 mls @ 420 mls/hr IVPB Q12H TENA Last Admin: 03/11/17 02:46 Dose: 420 mls/hr Lorazepam 20 mg/ Sodium (Chloride) 20 mls @ 0.77 mls/hr IV .Q24H TENA; 0.01 MG/ KG/HR PRN Reason: Protocol Last Admin: 03/10/17 20:49 Dose: 0.01 mg/kg/hr, 1 mls/hr Azithromycin 500 mg/ Sodium (Chloride) 250 mls @ 250 mls/hr IVPB DAILY TENA Last Admin: 03/11/17 09:40 Dose: 250 mls/hr Insulin Human Regular (Novolin R) 0 unit SC Q6 TENA PRN Reason: Protocol Last Admin: 03/11/17 12:30 Dose: 4 unit Pantoprazole Sodium (Protonix Inj) 40 mg IVP DAILY [facility] Last Admin: 03/11/17 09:01 Dose: 40 mg Phenobarbital (Phenobarbital Inj) 90 mg IV Q8 TENA Last Admin: 03/11/17 06:21 Dose: 90 mg Potassium Chloride (Potassium Chloride Oral Soln) 20 meq GT ONCE TENA Last Admin: 03/09/17 13:52 Dose: 20 meq - Labs Labs: 03/11/17 05:42 03/11/17 05:42 PT 13.6 SECONDS (9.7-12.2) H 03/10/17 12:24 INR 1.2 03/10/17 12:24 APTT 32 SECONDS (21-34) 03/10/17 12:24 - Constitutional Appears: Confused, Cachectic, Chronically Ill - Head Exam Head Exam: NORMOCEPHALIC - Eye Exam Eye Exam: PERRL - ENT Exam ENT Exam: Mucous Membranes Dry - Neck Exam Neck Exam: absent: Lymphadenopathy - Respiratory Exam Respiratory Exam: Decreased Breath Sounds - Cardiovascular Exam Cardiovascular Exam: REGULAR RHYTHM - GI/Abdominal Exam GI & Abdominal Exam: Distended, Soft Assessment and Plan (1) Cardiac arrest Status: Acute (2) Open wound of right foot with complication Status: Acute (3) Respiratory failure Status: Acute - Assessment and Plan (Free Text) Assessment: comatose on vent poor prognosis
--- NOTE | 2017-03-11 15:57 | CP.PCM.PN ---
Subjective - Date & Time of Evaluation Date of Evaluation: 03/11/17 Time of Evaluation: 11:40 - Subjective Subjective: clinically same Objective - Vital Signs/Intake and Output Vital Signs (last 24 hours): Temp Pulse Resp BP Pulse Ox 98.1 F 101 H 16 114/64 100 03/11/17 12:00 03/11/17 15:00 03/11/17 15:00 03/11/17 15:00 03/11/17 15:00 Intake and Output: 03/11/17 03/11/17 06:59 18:59 Intake Total 702.7 674 Output Total 1025 825 Balance -322.3 -151 - Medications Medications: Current Medications Acetaminophen (Tylenol 650mg/20.3ml Solution Ud) 650 mg PO Q4 PRN PRN Reason: temp >101 Last Admin: 03/11/17 00:46 Dose: 650 mg Albuterol/Ipratropium (Duoneb 3 Mg/0.5 Mg (3 Ml) Ud) 3 ml INH RQ6 TENA Last Admin: 03/11/17 13:19 Dose: 3 ml Artificial Tears (Lacri-Lube) 0 gm OS Q4H PRN PRN Reason: Other Last Admin: 03/06/17 14:23 Dose: 3.5 gm Calcium Acetate (Phoslo) 667 mg GT TIDCC TENA Last Admin: 03/11/17 12:40 Dose: 667 mg Collagenase (Santyl) 0 gm TOP DAILY TENA Last Admin: 03/11/17 09:02 Dose: 1 applic Heparin Sodium (Porcine) (Heparin) 5,000 units SC Q8 TENA Last Admin: 03/11/17 13:25 Dose: 5,000 units Piperacillin Sod/Tazobactam Sod (Zosyn 2.25 Gm Iv Premix) 2.25 gm in 50 mls @ 100 mls/hr IVPB Q6H TENA Last Admin: 03/11/17 09:03 Dose: 100 mls/hr Vancomycin HCl/Dextrose (Vancocin) 500 mg in 100 mls @ 100 mls/hr IVPB DAILY TENA Stop: 03/13/17 10:01 Last Admin: 03/11/17 10:00 Dose: 100 mls/hr Lorazepam 20 mg/ Sodium (Chloride) 20 mls @ 0.77 mls/hr IV .Q24H TENA; 0.01 MG/ KG/HR PRN Reason: Protocol Last Admin: 03/10/17 20:49 Dose: 0.01 mg/kg/hr, 1 mls/hr Azithromycin 500 mg/ Sodium (Chloride) 250 mls @ 250 mls/hr IVPB DAILY [facility] Last Admin: 03/11/17 09:40 Dose: 250 mls/hr Insulin Human Regular (Novolin R) 0 unit SC Q6 TENA PRN Reason: Protocol Last Admin: 03/11/17 12:30 Dose: 4 unit Pantoprazole Sodium (Protonix Inj) 40 mg IVP DAILY [facility] Last Admin: 03/11/17 09:01 Dose: 40 mg Phenobarbital (Phenobarbital Inj) 90 mg IV Q8 TENA Last Admin: 03/11/17 06:21 Dose: 90 mg Potassium Chloride (Potassium Chloride Oral Soln) 20 meq GT ONCE [facility] Last Admin: 03/09/17 13:52 Dose: 20 meq - Labs Labs: 03/11/17 05:42 03/11/17 05:42 PT 13.6 SECONDS (9.7-12.2) H 03/10/17 12:24 INR 1.2 03/10/17 12:24 APTT 32 SECONDS (21-34) 03/10/17 12:24 - Constitutional Appears: Well - Head Exam Head Exam: ATRAUMATIC, NORMAL INSPECTION, NORMOCEPHALIC - Eye Exam Eye Exam: EOMI, Normal appearance, PERRL Pupil Exam: NORMAL ACCOMODATION, PERRL - ENT Exam ENT Exam: Mucous Membranes Moist, Normal Exam - Neck Exam Neck Exam: Full ROM, Normal Inspection. absent: Lymphadenopathy - Respiratory Exam Respiratory Exam: Clear to Ausculation Bilateral, NORMAL BREATHING PATTERN - Cardiovascular Exam Cardiovascular Exam: REGULAR RHYTHM, +S1, +S2. absent: Murmur - GI/Abdominal Exam GI & Abdominal Exam: Soft, Normal Bowel Sounds. absent: Tenderness - Rectal Exam Rectal Exam: NORMAL INSPECTION - Exam Exam: Circumcision, NORMAL INSPECTION External exam: NORMAL EXTERNAL EXAM Speculum exam: NORMAL SPECULUM EXAM Bimanual exam: NORMAL BIMANUAL EXAM - Extremities Exam Extremities Exam: Full ROM, Normal Capillary Refill, Normal Inspection. absent : Joint Swelling, Pedal Edema - Back Exam Back Exam: NORMAL INSPECTION - Skin Skin Exam: Dry, Intact, Normal Color, Warm Assessment and Plan (1) Anemia Status: Acute (2) Anoxic encephalopathy Status: Acute (3) Anoxic encephalopathy Status: Acute (4) CHF (congestive heart failure) Status: Acute (5) Cardiac arrest Status: Acute (6) Coagulopathy Status: Acute (7) Open wound of right foot with complication Status: Acute (8) Respiratory failure Status: Acute (9) SAUNDRA (acute kidney injury) Status: Resolved - Assessment and Plan (Free Text) Plan: Patient examined. Patient clinically the same. Continue piperacillin tazobactam, vancomycin, supportive treatment.
--- NOTE | 2017-03-11 16:45 | CP.PCM.PN ---
Subjective - Date & Time of Evaluation Date of Evaluation: 03/11/17 Time of Evaluation: 12:59 - Subjective Subjective: No events, no visible seizures. Objective - Vital Signs/Intake and Output Vital Signs (last 24 hours): Temp Pulse Resp BP Pulse Ox 98.6 F 90 17 101/64 100 03/11/17 08:00 03/11/17 11:00 03/11/17 11:00 03/11/17 11:00 03/11/17 11:00 Intake and Output: 03/11/17 03/11/17 06:59 18:59 Intake Total 702.7 366 Output Total 1025 600 Balance -322.3 -234 - Medications Medications: Current Medications Acetaminophen (Tylenol 650mg/20.3ml Solution Ud) 650 mg PO Q4 PRN PRN Reason: temp >101 Last Admin: 03/11/17 00:46 Dose: 650 mg Albuterol/Ipratropium (Duoneb 3 Mg/0.5 Mg (3 Ml) Ud) 3 ml INH RQ6 TENA Last Admin: 03/11/17 07:23 Dose: 3 ml Artificial Tears (Lacri-Lube) 0 gm OS Q4H PRN PRN Reason: Other Last Admin: 03/06/17 14:23 Dose: 3.5 gm Calcium Acetate (Phoslo) 667 mg GT TIDCC TENA Last Admin: 03/11/17 09:01 Dose: 667 mg Collagenase (Santyl) 0 gm TOP DAILY TENA Last Admin: 03/11/17 09:02 Dose: 1 applic Heparin Sodium (Porcine) (Heparin) 5,000 units SC Q8 TENA Last Admin: 03/11/17 06:21 Dose: 5,000 units Piperacillin Sod/Tazobactam Sod (Zosyn 2.25 Gm Iv Premix) 2.25 gm in 50 mls @ 100 mls/hr IVPB Q6H TENA Last Admin: 03/11/17 09:03 Dose: 100 mls/hr Vancomycin HCl/Dextrose (Vancocin) 500 mg in 100 mls @ 100 mls/hr IVPB DAILY [facility] Stop: 03/13/17 10:01 Last Admin: 03/11/17 10:00 Dose: 100 mls/hr Levetiracetam 500 mg/ Dextrose 105 mls @ 420 mls/hr IVPB Q12H TENA Last Admin: 10/29/17 02:46 Dose: 420 mls/hr Lorazepam 20 mg/ Sodium (Chloride) 20 mls @ 0.77 mls/hr IV .Q24H TENA; 0.01 MG/ KG/HR PRN Reason: Protocol Last Admin: 03/10/17 20:49 Dose: 0.01 mg/kg/hr, 1 mls/hr Azithromycin 500 mg/ Sodium (Chloride) 250 mls @ 250 mls/hr IVPB DAILY TENA Last Admin: 03/11/17 09:40 Dose: 250 mls/hr Insulin Human Regular (Novolin R) 0 unit SC Q6 TENA PRN Reason: Protocol Last Admin: 03/11/17 06:22 Dose: 2 unit Pantoprazole Sodium (Protonix Inj) 40 mg IVP DAILY TENA Last Admin: 03/11/17 09:01 Dose: 40 mg Phenobarbital (Phenobarbital Inj) 90 mg IV Q8 TENA Last Admin: 03/11/17 06:21 Dose: 90 mg Potassium Chloride (Potassium Chloride Oral Soln) 20 meq GT ONCE TENA Last Admin: 03/09/17 13:52 Dose: 20 meq - Labs Labs: 03/11/17 05:42 03/11/17 05:42 PT 13.6 SECONDS (9.7-12.2) H 03/10/17 12:24 INR 1.2 03/10/17 12:24 APTT 32 SECONDS (21-34) 03/10/17 12:24 - Additional Findings Additional findings: * Patient has some limb movements spontaneous which are not seizure, has gag and breaths over the vent, corneal reflex unclear * HEENT as above * Neck supple * Chest Clear * CVS Regular * PA soft * ext no edema, left foot dressing, podiatry following up on wound * Skin normal turgor * [employer] MARGARINE as above. Assessment and Plan - Assessment and Plan (Free Text) Assessment: * Cardiac arrest * Anoxic damage, CT brain on 03/10 showing significant brain edema and anoxic damage * Seizures secondary to above, no active convulsions on lorazepam iv, phenobarb , keppra * B/l infiltrates possible aspiration during above * CRI * left foot wound Plan: * Supportive care * Brain flow scan as pt has some brain stem reflexes but significant damage in cerebrum * Continue abx, GI, DVT prophylaxis * Will discuss and update family.
[2017-03-11] MEDS: LORAZEPAM IV SCH ×2 (20:17→20:19)
[2017-03-11] MEDS: SODIUM CHLORIDE 0.9% IV SCH ×2 (20:17→20:19)
[2017-03-12] MEDS: Acetaminophen 650mg/20.3ml solution UD PO PRN (00:29)
[2017-03-12] MEDS: (Novolin R) Insulin Human Regular 100 units/ml vial SC SCH ×4 (00:29→17:38)
[2017-03-12] MEDS: Albuterol-Ipratrop 3 mg / 0.5 (3 ml) UD INH SCH ×4 (02:15→19:12)
[2017-03-12] MEDS: Piperacill/Tazo 2.25gm in Dex 2.25 GM/50 ML BAG IVPB SCH ×4 (03:30→21:30)
[2017-03-12 06:15] LABS: ABG MECHANICAL RATE 16; ARTERIAL BLOOD GAS MODE PRVC; ARTERIAL BLOOD HGB O2 SAT 96.2 % (95.0-98.0); ATERIAL BLOOD GAS PEEP 5; CARBOXYHEMOGLOBIN 1.4 % (0.5-1.5); DRAW SITE LR; HHB 1.5 % (0.0-5.0)
[2017-03-12 06:19] LABS: BASO % 0.5 % (0.0-2.0); EOS # 0.3 K/uL (0.0-0.7); EOS % 4.2 % (0.0-4.0); HEMATOCRIT 26.1 % (35.0-51.0); LYMPH # 1.3 K/uL (1.0-4.3); LYMPH % 17.5 % (20.0-40.0); MEAN CELL VOLUME 91.3 fL (80.0-94.0); MEAN CORPUSCULAR HEMOGLOBIN 30.1 pg (27.0-31.0); MEAN PLATELET VOLUME 10.1 fL (7.2-11.7); MONO # 0.5 K/uL (0.0-0.8); MONO % 6.6 % (0.0-10.0); RED CELL DISTRIBUTION WIDTH 15.8 % (11.5-14.5); WHITE BLOOD COUNT 7.2 K/uL (4.8-10.8)
[2017-03-12 06:31] LABS: POTASSIUM 3.7 mmol/L (3.6-5.2)
[2017-03-12 06:33] LABS: BILIRUBIN,TOTAL 0.6 mg/dL (0.2-1.3); TOTAL PROTEIN 5.6 g/dL (6.3-8.3)
[2017-03-12 06:34] LABS: CALCIUM 7.4 mg/dl (8.6-10.4); MAGNESIUM 2.1 mg/dL (1.6-2.3); PHOSPHOROUS 3.7 mg/dL (2.5-4.5)
[2017-03-12 06:43] LABS: ALB/GLOB RATIO 0.9 (1.0-2.1)
--- NOTE | 2017-03-12 06:43 | CON ---
DATE: 03/07/2017 HISTORY OF PRESENT ILLNESS: I was called for a GI consultation by the admitting medical team in the intensive care unit. The patient was seen and fully examined on 03/07/2017 in the presence of the ICU staff as requested by the admitting MD. All the available lab and the radiology study results, current and previous medication lists, current and previous medical events, allergy to medication list as well as all the available current and previous medical records were reviewed. It has to be mentioned that due to the patient's clinical status, all the information were obtained from the medical record. The patient is intubated. HISTORY OF PRESENT ILLNESS: This is a 52-year-old male, was admitted initially due to shortness of breath, subsequently was intubated, unable to get any information. The patient was post-cardiac code , unresponsive. PAST MEDICAL HISTORY: Unclear. FAMILY HISTORY: Unknown. It has to be reported that as per some family members, the patient has history of diabetes mellitus, renal disorder with hypertension. LABORATORY DATA: Most recent lab results showed elevated liver function test with AST of 290 and ALT of 130 with excessive increase of troponin level post the patient is status post cardiac arrest, was low albumin 3.2. Sodium was 130, potassium elevated at 5.3 with CO2 content of 13, indicative of severe metabolic acidosis. Calcium reported to be 8.2. PHYSICAL EXAMINATION: GENERAL: A 52-year-old male, intubated, sedated, afebrile with pulse of 76, blood pressure of 92/56. HEENT: Showed pale and dry oral mucous membranes. The patient is intubated. NG tube was in place. LYMPH NODES: No lymphadenitis or lymphadenopathy. LUNGS: A few scattered crepitation with decreased air entry bilaterally. HEART: Positive S1 and S2. ABDOMEN: Soft with slight distention, mildly obese. EXTREMITIES: With lower extremity edematous changes. No clubbing or cyanosis. NEUROLOGIC: No new reported other significant finding. The patient is sedated. IMPRESSION: 1. Status post code. 2. Respiratory failure, intubated. 3. 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 4. Severe anemia, no other focality with initial hemoglobin of 6.9, hematocrit 21.4. The possibility of gastrointestinal blood loss was raised. SUGGESTIONS: 1. Agree with your plan. 2. Blood transfusion to get hemoglobin around 10 gram percent. 3. Correct and underlying coagulopathy. 4. Due to the patient's malnutrition and dysphagia, he is a candidate for PEG insertion that to be discussed with immediate family member and after obtaining a legal consent. 5. Further evaluation to follow. Thank you for letting me participate in your patient's case management. Yola Sim MD Cc: Yola Sim MD
[2017-03-12] MEDS: SODIUM CHLORIDE 0.9% IV SCH (08:35)
[2017-03-12] MEDS: LORAZEPAM IV SCH (08:35)
--- NOTE | 2017-03-12 08:52 | CP.CCUPN ---
CCU Subjective - Physician Review Subjective (Free Text): Patient seen and examined at bedside. ROS unobtainable due to patient's current clinical status. CCU Objective - Vital Signs / Intake & Output Vital Signs (Last 4 hours): Vital Signs Pulse Resp BP Pulse Ox 03/12/17 08:00 90 18 115/68 100 03/12/17 07:00 88 18 102/63 03/12/17 06:00 73 16 93/53 L 99 03/12/17 05:00 73 16 91/52 L 99 Intake and Output (Last 8hrs): Intake & Output 03/11/17 03/12/17 03/12/17 22:59 06:59 14:59 Intake Total 408 288 20 Output Total 950 800 Balance -542 -512 20 Weight 170 lb Intake: IV 20 20 Intake, IV Amount 108 8 Right Antecubital 100 Right Hand 8 8 Tube Feeding 280 280 Output: Urine 950 800 Urethral (Gipson) 950 800 Other: # Bowel Movements 0 - Physical Exam Head: Positive for: Atraumatic, Normocephalic Mouth: Positive for: Moist Mucous Membranes Respiratory/Chest: Positive for: Rales Cardiovascular: Positive for: Regular Rate and Rhythm, Normal S1, S2 Abdomen: Negative for: Distention Lower Extremity: Positive for: Other (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 Negative for: Alert, Oriented x 3 - Medications Active Medications: Active Medications Generic Name Dose Route Start Last Admin Trade Name Freq PRN Reason Stop Dose Admin Acetaminophen 650 mg 03/05/17 22:55 03/12/17 00:29 Tylenol 650mg/20.3ml Solution Ud PO 650 mg Q4 PRN Administration temp >101 Albuterol/Ipratropium 3 ml 03/10/17 20:00 03/12/17 07:05 Duoneb 3 Mg/0.5 Mg (3 Ml) Ud INH 3 ml RQ6 TENA Administration Artificial Tears 0 gm 03/06/17 10:04 03/06/17 14:23 Lacri-Lube OS 3.5 gm Q4H PRN Administration Other Calcium Acetate 667 mg 03/08/17 10:00 03/11/17 17:14 Phoslo GT 667 mg TIDCC TENA Administration Collagenase 0 gm 03/10/17 10:00 03/11/17 09:02 Santyl TOP 1 applic DAILY TENA Administration Heparin Sodium (Porcine) 5,000 units 03/05/17 06:00 03/12/17 05:38 Heparin SC 5,000 units Q8 TENA Administration Piperacillin Sod/Tazobactam Sod 2.25 gm in 50 mls @ 100 mls/hr 03/04/17 21:30 03/12/17 03:30 Zosyn 2.25 Gm Iv Premix IVPB 100 mls/hr Q6H TENA Administration Vancomycin HCl/Dextrose 500 mg in 100 mls @ 100 mls/hr 03/08/17 11:00 10:00 Vancocin IVPB 03/13/17 10:01 100 mls/hr DAILY TENA Administration Lorazepam 20 mg/ Sodium 20 mls @ 0.77 mls/hr 03/09/17 12:15 03/12/17 08:35 Chloride IV 0.01 mg/kg/hr .Q24H TENA 1 mls/hr Protocol Administration 0.01 MG/KG/HR Azithromycin 500 mg/ Sodium 250 mls @ 250 mls/hr 03/11/17 10:00 03/11/17 09: 40 Chloride IVPB 250 mls/hr DAILY TENA Administration Insulin Human Regular 0 unit 03/08/17 09:35 03/12/17 05:38 Novolin R SC 4 unit Q6 TENA Administration Protocol Pantoprazole Sodium 40 mg 03/05/17 10:00 03/11/17 09:01 Protonix Inj IVP 40 mg DAILY TENA Administration Phenobarbital 90 mg 03/10/17 06:00 03/12/17 05:37 Phenobarbital Inj IV 90 mg Q8 TENA Administration Potassium Chloride 20 meq 03/09/17 13:15 03/09/17 13:52 Potassium Chloride Oral Soln GT 20 meq ONCE TENA Administration - Patient Studies Lab Studies: Lab Studies 03/12/17 03/12/17 03/12/17 Range/Units 06:11 06:11 05:18 WBC 7.2 (4.8-10.8) K/uL RBC 2.85 L (4.40-5.90) Mil/uL Hgb 8.6 L (12.0-18.0) g/dL Hct 26.1 L (35.0-51.0) % MCV 91.3 (80.0-94.0) fL MCH 30.1 (27.0-31.0) pg MCHC 33.0 (33.0-37.0) g/dL RDW 15.8 H (11.5-14.5) % Plt Count 118 L (130-400) K/uL MPV 10.1 (7.2-11.7) fL Neut % (Auto) 71.2 (50.0-75.0) % Lymph % (Auto) 17.5 L (20.0-40.0) % [place]idan % (Auto) 6.6 (0.0-10.0) % Eos % (Auto) 4.2 H (0.0-4.0) % Baso % (Auto) 0.5 (0.0-2.0) % Neut # 5.1 (1.8-7.0) K/uL Lymph # 1.3 (1.0-4.3) K/uL Sheridan # 0.5 (0.0-0.8) K/uL Eos # 0.3 (0.0-0.7) K/uL Baso # 0.0 (0.0-0.2) K/uL Puncture Site pCO2 (35-45) mm/Hg pO2 (80-100) mm/Hg HCO3 (21-28) mmol/L ABG pH (7.35-7.45) ABG Total CO2 (22-28) mmol/L ABG O2 Saturation (95-98) % ABG Base Excess (-2.0-3.0) mmol/L ABG Hemoglobin (11.7-17.4) g/dL ABG Carboxyhemoglobin (0.5-1.5) % POC ABG HHb (Measured) (0.0-5.0) % ABG Methemoglobin (0.0-3.0) % Reji Test A-a O2 Difference mm/Hg Respiratory Index Hgb O2 Saturation (95.0-98.0) % Vent Mode Mechanical Rate FiO2 % Tidal Volume PEEP Sodium 144 (132-148) mmol/L Potassium 3.7 (3.6-5.2) mmol/L Chloride 107 (98-107) mmol/L Carbon Dioxide 28 (22-30) mmol/L Anion Gap 13 (10-20) BUN 52 H (9-20) mg/dL Creatinine 2.6 H (0.8-1.5) mg/dL Est GFR ( Amer) 32 Est GFR (Non-Af Amer) 26 POC Glucose (mg/dL) 203 H (65-110) mg/dL Random Glucose 193 H (75-110) mg/dL Calcium 7.4 L (8.6-10.4) mg/dl Phosphorus 3.7 (2.5-4.5) mg/dL Magnesium 2.1 (1.6-2.3) mg/dL Total Bilirubin 0.6 (0.2-1.3) mg/dL AST 47 (17-59) U/L ALT 43 (21-72) U/L Alkaline Phosphatase 69 (38-126) U/L Total Protein 5.6 L (6.3-8.3) g/dL Albumin 2.7 L (3.5-5.0) g/dL Globulin 2.9 (2.2-3.9) gm/dL Albumin/Globulin Ratio 0.9 L (1.0-2.1) 03/12/17 03/12/17 03/12/17 Range/Units 05:04 00:23 00:23 WBC (4.8-10.8) K/uL RBC (4.40-5.90) Mil/uL Hgb (12.0-18.0) g/dL Hct (35.0-51.0) % MCV (80.0-94.0) fL MCH (27.0-31.0) pg MCHC (33.0-37.0) g/dL RDW (11.5-14.5) % Plt Count (130-400) K/uL MPV (7.2-11.7) fL Neut % (Auto) (50.0-75.0) % Lymph % (Auto) (20.0-40.0) % Sheridan % (Auto) (0.0-10.0) % Eos % (Auto) (0.0-4.0) % Baso % (Auto) (0.0-2.0) % Neut # (1.8-7.0) K/uL Lymph # (1.0-4.3) K/uL Sheridan # (0.0-0.8) K/uL Eos # (0.0-0.7) K/uL Baso # (0.0-0.2) K/uL Puncture Site Lr pCO2 43 (35-45) mm/Hg pO2 114 H (80-100) mm/Hg HCO3 29.1 H (21-28) mmol/L ABG pH 7.45 (7.35-7.45) ABG Total CO2 31.2 H (22-28) mmol/L ABG O2 Saturation 98.5 H (95-98) % ABG Base Excess 5.4 H (-2.0-3.0) mmol/L ABG Hemoglobin 8.5 L (11.7-17.4) g/dL ABG Carboxyhemoglobin 1.4 (0.5-1.5) % POC ABG HHb (Measured) 1.5 (0.0-5.0) % ABG Methemoglobin 1.0 (0.0-3.0) % Reji Test Na A-a O2 Difference 189.0 mm/Hg Respiratory Index 1.7 Hgb O2 Saturation 96.2 (95.0-98.0) % Vent Mode Prvc Mechanical Rate 16 FiO2 50.0 % Tidal Volume 450 PEEP 5 Sodium (132-148) mmol/L Potassium (3.6-5.2) mmol/L Chloride (98-107) mmol/L Carbon Dioxide (22-30) mmol/L Anion Gap (10-20) BUN (9-20) mg/dL Creatinine (0.8-1.5) mg/dL Est GFR ( Amer) Est GFR (Non-Af Amer) POC Glucose (mg/dL) 249 H 249 H (65-110) mg/dL Random Glucose (75-110) mg/dL Calcium (8.6-10.4) mg/dl Phosphorus (2.5-4.5) mg/dL Magnesium (1.6-2.3) mg/dL Total Bilirubin (0.2-1.3) mg/dL AST (17-59) U/L ALT (21-72) U/L Alkaline Phosphatase (38-126) U/L Total Protein (6.3-8.3) g/dL Albumin (3.5-5.0) g/dL Globulin (2.2-3.9) gm/dL Albumin/Globulin Ratio (1.0-2.1) 03/11/17 03/11/17 Range/Units 18:00 11:56 WBC (4.8-10.8) K/uL RBC (4.40-5.90) Mil/uL Hgb (12.0-18.0) g/dL Hct (35.0-51.0) % MCV (80.0-94.0) fL MCH (27.0-31.0) pg MCHC (33.0-37.0) g/dL RDW (11.5-14.5) % Plt Count (130-400) K/uL MPV (7.2-11.7) fL Neut % (Auto) (50.0-75.0) % Lymph % (Auto) (20.0-40.0) % Sheridan % (Auto) (0.0-10.0) % Eos % (Auto) (0.0-4.0) % Baso % (Auto) (0.0-2.0) % Neut # (1.8-7.0) K/uL Lymph # (1.0-4.3) K/uL Sheridan # (0.0-0.8) K/uL Eos # (0.0-0.7) K/uL Baso # (0.0-0.2) K/uL Puncture Site pCO2 (35-45) mm/Hg pO2 (80-100) mm/Hg HCO3 (21-28) mmol/L ABG pH (7.35-7.45) ABG Total CO2 (22-28) mmol/L ABG O2 Saturation (95-98) % ABG Base Excess (-2.0-3.0) mmol/L ABG Hemoglobin (11.7-17.4) g/dL ABG Carboxyhemoglobin (0.5-1.5) % POC ABG HHb (Measured) (0.0-5.0) % ABG Methemoglobin (0.0-3.0) % Reji Test A-a O2 Difference mm/Hg Respiratory Index Hgb O2 Saturation (95.0-98.0) % Vent Mode Mechanical Rate FiO2 % Tidal Volume PEEP Sodium (132-148) mmol/L Potassium (3.6-5.2) mmol/L Chloride (98-107) mmol/L Carbon Dioxide (22-30) mmol/L Anion Gap (10-20) BUN (9-20) mg/dL Creatinine (0.8-1.5) mg/dL Est GFR ( Amer) Est GFR (Non-Af Amer) POC Glucose (mg/dL) 219 H 212 H (65-110) mg/dL Random Glucose (75-110) mg/dL Calcium (8.6-10.4) mg/dl Phosphorus (2.5-4.5) mg/dL Magnesium (1.6-2.3) mg/dL Total Bilirubin (0.2-1.3) mg/dL AST (17-59) U/L ALT (21-72) U/L Alkaline Phosphatase (38-126) U/L Total Protein (6.3-8.3) g/dL Albumin (3.5-5.0) g/dL Globulin (2.2-3.9) gm/dL Albumin/Globulin Ratio (1.0-2.1) Laboratory Results - last 24 hr 03/11/17 03/11/17 03/12/17 11:56 18:00 00:23 WBC RBC Hgb Hct MCV MCH MCHC RDW Plt Count MPV Neut % (Auto) Lymph % (Auto) Sheridan % (Auto) Eos % (Auto) Baso % (Auto) Neut # Lymph # Sheridan # Eos # Baso # Puncture Site pCO2 pO2 HCO3 ABG pH ABG Total CO2 ABG O2 Saturation ABG Base Excess ABG Hemoglobin ABG Carboxyhemoglobin POC ABG HHb (Measured) ABG Methemoglobin Reji Test A-a O2 Difference Respiratory Index Hgb O2 Saturation Vent Mode Mechanical Rate FiO2 Tidal Volume PEEP Sodium Potassium Chloride Carbon Dioxide Anion Gap BUN Creatinine Est GFR ( Amer) Est GFR (Non-Af Amer) POC Glucose (mg/dL) 212 H 219 H 249 H Random Glucose Calcium Phosphorus Magnesium Total Bilirubin AST ALT Alkaline Phosphatase Total Protein Albumin Globulin Albumin/Globulin Ratio 03/12/17 03/12/17 03/12/17 00:23 05:04 05:18 WBC RBC Hgb Hct MCV MCH MCHC RDW Plt Count MPV Neut % (Auto) Lymph % (Auto) Sheridan % (Auto) Eos % (Auto) Baso % (Auto) Neut # Lymph # Sheridan # Eos # Baso # Puncture Site Lr pCO2 43 pO2 114 H HCO3 29.1 H ABG pH 7.45 ABG Total CO2 31.2 H ABG O2 Saturation 98.5 H ABG Base Excess 5.4 H ABG Hemoglobin 8.5 L ABG Carboxyhemoglobin 1.4 POC ABG HHb (Measured) 1.5 ABG Methemoglobin 1.0 Reji Test Na A-a O2 Difference 189.0 Respiratory Index 1.7 Hgb O2 Saturation 96.2 Vent Mode Prvc Mechanical Rate 16 FiO2 50.0 Tidal Volume 450 PEEP 5 Sodium Potassium Chloride Carbon Dioxide Anion Gap BUN Creatinine Est GFR ( Amer) Est GFR (Non-Af Amer) POC Glucose (mg/dL) 249 H 203 H Random Glucose Calcium Phosphorus Magnesium Total Bilirubin AST ALT Alkaline Phosphatase Total Protein Albumin Globulin Albumin/Globulin Ratio 03/12/17 03/12/17 06:11 06:11 WBC 7.2 RBC 2.85 L Hgb 8.6 L Hct 26.1 L MCV 91.3 MCH 30.1 MCHC 33.0 RDW 15.8 H Plt Count 118 L MPV 10.1 Neut % (Auto) 71.2 Lymph % (Auto) 17.5 L [place] % (Auto) 6.6 Eos % (Auto) 4.2 H Baso % (Auto) 0.5 Neut # 5.1 Lymph # 1.3 Sheridan # 0.5 Eos # 0.3 Baso # 0.0 Puncture Site pCO2 pO2 HCO3 ABG pH ABG Total CO2 ABG O2 Saturation ABG Base Excess ABG Hemoglobin ABG Carboxyhemoglobin POC ABG HHb (Measured) ABG Methemoglobin Reji Test A-a O2 Difference Respiratory Index Hgb O2 Saturation Vent Mode Mechanical Rate FiO2 Tidal Volume PEEP Sodium 144 Potassium 3.7 Chloride 107 Carbon Dioxide 28 Anion Gap 13 BUN 52 H Creatinine 2.6 H Est GFR ( Amer) 32 Est GFR (Non-Af Amer) 26 POC Glucose (mg/dL) Random Glucose 193 H Calcium 7.4 L Phosphorus 3.7 Magnesium 2.1 Total Bilirubin 0.6 AST 47 ALT 43 Alkaline Phosphatase 69 Total Protein 5.6 L Albumin 2.7 L Globulin 2.9 Albumin/Globulin Ratio 0.9 L Fingerstick Blood Sugar Results: 201 Assessment/Plan - Assessment and Plan (Free Text) Assessment: 52 y/o M with pmhx of HTN, DM II, kidney disease, who was brought to the ED after he collapsed in ED at home and was found in asystole. Patient given 3 doses of epi and CPR for 15 minutes then ROSC. Patient intubated in the field. Patient went into cardiac arrest twice more in the ICU. Neuro: Intubated, altered mental status Medication and Management: * Ativan 1 mg q2h PRN seizure activitiy * Keppra 500 mg q12h * Dr. Rascon consulted, help appreciated Imaging: Head CT (03/04): chronic microvascular ischemic changes, no acute intracranial hemorrhage EEG (03/05/17): periodic paroxysmal activities lasting about 2-3 seconds with intermittent burst suppression suggestive of status epileptiform activities. Head CT (03/06/17): nonspecific white matter changes Blood flow (03/08): brain not established EEG (03/08/17): consistent with burst suppression from the beginning. Some low amplitude, 2-3 Hz delta activity seen intermittently. Most of the study shows no electrical activities consistent with possible cerebral silence. Head CT (03/10/17): Diffuse cerebral edema with complete loss of corticomedullary differentiation can be seen in global anoxic insult. no intracranial hemorrhage Pulm: Respiratory distress secondary to cardiac arrest Medication and Management * Patient intubated * gipson to measure urine output * Propofol 5mcg/kg/min Imaging: Chest X-ray (03/07/17): Minimal left pleural effusion, CHF improving Cardio: s/p cardiac arrest Medication and management: * Off of pressors * Dr. Tate consulted, help appreciated * Echo (03/04/17): LVEF:42, mild to moderate LV systolic dysfunction. Normal chamber size. Trace MR and TR. Trace pericardial effusion. Pleural effusion. Heme: anemia Medication and management: * 03/06/17: HgB/Hct: 7/20.6, transfused 2 u PRBCs * 03/07/17: HgB/ Hct: 9.6/28.2 * 03/12/17: HgB/Hct: 8.6/26.1 Endo: DM II Medication and management: * Regular ISS- increased to high on 03/08 * accucheck q6h * HgA1C: 9.4 Renal: acute vs chronic kidney disease Medication and management: * Lasix d/c on 03/08 * f/u recommendation as per Dr. Charles * K+ 7.0 on 03/05, 1 amp Ca Gluconate, 1 amp bicarb, duonebs, solumedrol 40 BID given * K+ repeat 6.6, repeat of 1 amp Ca Gluconate, 1 amp bicarb, duonebs, and Kayexalate once at 6pm and once at 10pm * 03/06: K+: 4.5 * 03/07: K+ stable, BUN/Cr: 62/2.9 MSK: right foot wound secondary to first metatarsal amputation Medication and management: * Wound care * Dr. Guzman, podiatry, consulted- help appreciated ID: Medication and management: * Vanco decreased to 500 daily on 03/08 * Zosyn * MRSA in nose * Urine culture (-) * blood culture (-) * Dr. Shore consulted, help appreciated Prophylaxis: DVT: Heparin 5,000 u sc q8h GI: Protonix 40 mg IVP daily glucerna feeds at 35ml/hr, 100 cc free water flushes q6h
--- NOTE | 2017-03-12 09:15 | PN ---
DATE: NEUROLOGICAL PROBLEM: Status post anoxic encephalopathy with status epilepticus. PHYSICAL EXAMINATION: VITAL SIGNS: Blood pressure 93/63, mean arterial pressure of 66, respiratory rate 16, and pulse rate 73. NEUROLOGIC: The patient is comatose. Eyes are closed. No pupillary reflex. No corneal reflex. No gag on manipulating endotracheal tube, flaccid, and had quadriplegia. DIAGNOSTIC DATA: Followup CT of the head showed loss of differentiation between hackett and white matter consistent with anoxic insult. The patient does not show any seizure activities. The patient is on dual antiepileptic drugs. The patient attained a reversible [employer] insult. Overall, prognosis is very grim. Ronnie Rascon MD [id number]
--- NOTE | 2017-03-12 09:40 | RAD ---
HISTORY: Intubated COMPARISON: Portable chest 03/02/2017. FINDINGS: Endotracheal and nasogastric tubes do not appear simply changed in position. LUNGS: Diminishing infiltrate seen the right hemithorax now remaining only at the inferior right lung zone with the mid superior right lung zones clearing. Left hemidiaphragm remains silhouetted suggesting significant left basilar airspace disease without change. PLEURA: No right pleural effusion. Limited left pleural effusions identified. No pneumothorax bilaterally. CARDIOVASCULAR: Stable prominent cardiac silhouette. No pulmonary vascular derangement identified. OSSEOUS STRUCTURES: No significant abnormalities. VISUALIZED UPPER ABDOMEN: Normal. OTHER FINDINGS: None. IMPRESSION: Interval improvement in right-sided infiltrate with [id number] residual at the inferior right lung zone. Left basilar airspace disease unchanged.
[2017-03-12] MEDS: Azithromycin 500 MG in Sodium Chloride 0.9% 250 ML IVPB SCH (10:05)
[2017-03-12] MEDS: Vancomycin 500mg/D5W 100 ml 500 MG/100 ML BAG IVPB SCH (10:06)
[2017-03-12] MEDS: White Petrolatum/Mineral Oil Ophth Oint(3.5 gm) OS PRN (10:07)
[2017-03-12] MEDS: Collagenase 250 Units/gm Ointment(30 gm) TOP SCH (10:09)
--- NOTE | 2017-03-12 10:50 | CP.PCM.PN ---
Subjective - Date & Time of Evaluation Date of Evaluation: 03/12/17 Time of Evaluation: 08:00 - Subjective Subjective: unresponsive on vent iv rx in progress Objective - Vital Signs/Intake and Output Vital Signs (last 24 hours): Temp Pulse Resp BP Pulse Ox 98.2 F 93 H 18 123/74 100 03/12/17 08:00 03/12/17 09:00 03/12/17 09:00 03/12/17 09:00 03/12/17 09:00 Intake and Output: 03/12/17 03/12/17 06:59 18:59 Intake Total 432 128 Output Total 1200 Balance -768 128 - Medications Medications: Current Medications Acetaminophen (Tylenol 650mg/20.3ml Solution Ud) 650 mg PO Q4 PRN PRN Reason: temp >101 Last Admin: 03/12/17 00:29 Dose: 650 mg Albuterol/Ipratropium (Duoneb 3 Mg/0.5 Mg (3 Ml) Ud) 3 ml INH RQ6 TENA Last Admin: 03/12/17 07:05 Dose: 3 ml Artificial Tears (Lacri-Lube) 0 gm OS Q4H PRN PRN Reason: Other Last Admin: 03/12/17 10:07 Dose: 3.5 gm Calcium Acetate (Phoslo) 667 mg GT TIDCC TNEA Last Admin: 03/12/17 10:08 Dose: 667 mg Collagenase (Santyl) 0 gm TOP DAILY TENA Last Admin: 03/12/17 10:09 Dose: 1 applic Heparin Sodium (Porcine) (Heparin) 5,000 units SC Q8 TENA Last Admin: 03/12/17 05:38 Dose: 5,000 units Piperacillin Sod/Tazobactam Sod (Zosyn 2.25 Gm Iv Premix) 2.25 gm in 50 mls @ 100 mls/hr IVPB Q6H TENA Last Admin: 03/12/17 03:30 Dose: 100 mls/hr Vancomycin HCl/Dextrose (Vancocin) 500 mg in 100 mls @ 100 mls/hr IVPB DAILY TENA Stop: 03/13/17 10:01 Last Admin: 03/12/17 10:06 Dose: 100 mls/hr Lorazepam 20 mg/ Sodium (Chloride) 20 mls @ 0.77 mls/hr IV .Q24H TENA; 0.01 MG/ KG/HR PRN Reason: Protocol Last Admin: 03/12/17 08:35 Dose: 0.01 mg/kg/hr, 1 mls/hr Azithromycin 500 mg/ Sodium (Chloride) 250 mls @ 250 mls/hr IVPB DAILY TENA Last Admin: 03/12/17 10:05 Dose: 250 mls/hr Insulin Human Regular (Novolin R) 0 unit SC Q6 TENA PRN Reason: Protocol Last Admin: 03/12/17 05:38 Dose: 4 unit Pantoprazole Sodium (Protonix Inj) 40 mg IVP DAILY TENA Last Admin: 03/12/17 10:05 Dose: 40 mg Phenobarbital (Phenobarbital Inj) 90 mg IV Q8 TENA Last Admin: 03/12/17 05:37 Dose: 90 mg Potassium Chloride (Potassium Chloride Oral Soln) 20 meq GT ONCE TENA Last Admin: 03/09/17 13:52 Dose: 20 meq - Labs Labs: 03/12/17 06:11 03/12/17 06:11 PT 13.6 SECONDS (9.7-12.2) H 03/10/17 12:24 INR 1.2 03/10/17 12:24 APTT 32 SECONDS (21-34) 03/10/17 12:24 - Constitutional Appears: Confused - Head Exam Head Exam: NORMOCEPHALIC - Eye Exam Eye Exam: absent: Scleral icterus - ENT Exam ENT Exam: Mucous Membranes Dry - Neck Exam Neck Exam: absent: Lymphadenopathy - Respiratory Exam Respiratory Exam: Decreased Breath Sounds - Cardiovascular Exam Cardiovascular Exam: REGULAR RHYTHM - GI/Abdominal Exam GI & Abdominal Exam: Distended - Rectal Exam Rectal Exam: Deferred - Back Exam Back Exam: absent: CVA tenderness (L), CVA tenderness (R) - Neurological Exam Neurological Exam: Altered Assessment and Plan (1) Cardiac arrest Status: Acute (2) Open wound of right foot with complication Status: Acute (3) Respiratory failure Status: Acute - Assessment and Plan (Free Text) Assessment: poor prognosis palliative care eval
--- NOTE | 2017-03-12 12:26 | CP.PCM.PN ---
Subjective - Date & Time of Evaluation Date of Evaluation: 03/12/17 Time of Evaluation: 12:23 - Subjective Subjective: Mental status same- not responsive Starting to decorticate UO adequate; >2000ml Creat stable at 2.6 Objective - Vital Signs/Intake and Output Vital Signs (last 24 hours): Temp Pulse Resp BP Pulse Ox 98.2 F 93 H 18 123/74 100 03/12/17 08:00 03/12/17 09:00 03/12/17 09:00 03/12/17 09:00 03/12/17 09:00 Intake and Output: 03/12/17 03/12/17 06:59 18:59 Intake Total 432 198 Output Total 1200 600 Balance -768 -402 - Medications Medications: Current Medications Acetaminophen (Tylenol 650mg/20.3ml Solution Ud) 650 mg PO Q4 PRN PRN Reason: temp >101 Last Admin: 03/12/17 00:29 Dose: 650 mg Albuterol/Ipratropium (Duoneb 3 Mg/0.5 Mg (3 Ml) Ud) 3 ml INH RQ6 TENA Last Admin: 03/12/17 07:05 Dose: 3 ml Artificial Tears (Lacri-Lube) 0 gm OS Q4H PRN PRN Reason: Other Last Admin: 03/12/17 10:07 Dose: 3.5 gm Calcium Acetate (Phoslo) 667 mg GT TIDCC TENA Last Admin: 03/12/17 12:10 Dose: 667 mg Collagenase (Santyl) 0 gm TOP DAILY TENA Last Admin: 03/12/17 10:09 Dose: 1 applic Piperacillin Sod/Tazobactam Sod (Zosyn 2.25 Gm Iv Premix) 2.25 gm in 50 mls @ 100 mls/hr IVPB Q6H TENA Last Admin: 03/12/17 11:03 Dose: 100 mls/hr Vancomycin HCl/Dextrose (Vancocin) 500 mg in 100 mls @ 100 mls/hr IVPB DAILY TENA Stop: 03/13/17 10:01 Last Admin: 03/12/17 10:06 Dose: 100 mls/hr Azithromycin 500 mg/ Sodium (Chloride) 250 mls @ 250 mls/hr IVPB DAILY TENA Last Admin: 03/12/17 10:05 Dose: 250 mls/hr Insulin Human Regular (Novolin R) 0 unit SC Q6 TENA PRN Reason: Protocol Last Admin: 03/12/17 12:10 Dose: 2 unit Pantoprazole Sodium (Protonix Inj) 40 mg IVP DAILY [facility] Last Admin: 03/12/17 10:05 Dose: 40 mg Phenobarbital (Phenobarbital Inj) 90 mg IV Q8 [facility] Last Admin: 03/12/17 05:37 Dose: 90 mg Potassium Chloride (Potassium Chloride Oral Soln) 20 meq GT ONCE [facility] Last Admin: 03/09/17 13:52 Dose: 20 meq - Labs Labs: 03/12/17 06:11 03/12/17 06:11 PT 13.6 SECONDS (9.7-12.2) H 03/10/17 12:24 INR 1.2 03/10/17 12:24 APTT 32 SECONDS (21-34) 03/10/17 12:24 - Constitutional Appears: No Acute Distress, Chronically Ill - Head Exam Head Exam: ATRAUMATIC, NORMAL INSPECTION - Neck Exam Neck Exam: Normal Inspection. absent: Tenderness - Respiratory Exam Respiratory Exam: Clear to Ausculation Bilateral, Respiratory Distress - Cardiovascular Exam Cardiovascular Exam: REGULAR RHYTHM, +S1 - GI/Abdominal Exam GI & Abdominal Exam: Soft. absent: Tenderness - Extremities Exam Extremities Exam: Normal Inspection. absent: Tenderness - Neurological Exam Neurological Exam: Altered, Motor Sensory Deficit - Skin Skin Exam: Dry, Warm Assessment and Plan (1) SAUNDRA (acute kidney injury) Status: Acute (2) CHF (congestive heart failure) Status: Acute (3) Cardiac arrest Status: Acute (4) Open wound of right foot with complication Status: Acute (5) Respiratory failure Status: Acute - Assessment and Plan (Free Text) Plan: continue to monitor lytes; SAUNDRA no acute intervention planned at this time
--- NOTE | 2017-03-12 13:58 | CP.PCM.PN ---
<Jeannie Ellis - Last Filed: 03/12/17 13:52> Subjective - Date & Time of Evaluation Date of Evaluation: 03/12/17 Time of Evaluation: 13:53 - Subjective Subjective: 52 yo male patient with PMHx of NIDDM, HTN, Cardiac arrest was seen at bedside ICU this morning concerning open wound to right foot hallux amputation site. Patient on CPAP not able to communicate. Patient's friends at bedside. Dressing to right foot appears clean dry and intact. Objective - Vital Signs/Intake and Output Vital Signs (last 24 hours): Temp Pulse Resp BP Pulse Ox 98.2 F 93 H 18 123/74 100 03/12/17 08:00 03/12/17 09:00 03/12/17 09:00 03/12/17 09:00 03/12/17 09:00 Intake and Output: 03/12/17 03/12/17 06:59 18:59 Intake Total 432 198 Output Total 1200 600 Balance -768 -402 - Medications Medications: Current Medications Acetaminophen (Tylenol 650mg/20.3ml Solution Ud) 650 mg PO Q4 PRN PRN Reason: temp >101 Last Admin: 03/12/17 00:29 Dose: 650 mg Albuterol/Ipratropium (Duoneb 3 Mg/0.5 Mg (3 Ml) Ud) 3 ml INH RQ6 TENA Last Admin: 03/12/17 13:12 Dose: 3 ml Artificial Tears (Lacri-Lube) 0 gm OS Q4H PRN PRN Reason: Other Last Admin: 03/12/17 10:07 Dose: 3.5 gm Calcium Acetate (Phoslo) 667 mg GT TIDCC TENA Last Admin: 03/12/17 12:10 Dose: 667 mg Collagenase (Santyl) 0 gm TOP DAILY TENA Last Admin: 03/12/17 10:09 Dose: 1 applic Piperacillin Sod/Tazobactam Sod (Zosyn 2.25 Gm Iv Premix) 2.25 gm in 50 mls @ 100 mls/hr IVPB Q6H TENA Last Admin: 03/12/17 11:03 Dose: 100 mls/hr Vancomycin HCl/Dextrose (Vancocin) 500 mg in 100 mls @ 100 mls/hr IVPB DAILY TENA Stop: 03/13/17 10:01 Last Admin: 03/12/17 10:06 Dose: 100 mls/hr Azithromycin 500 mg/ Sodium (Chloride) 250 mls @ 250 mls/hr IVPB DAILY [facility] Last Admin: 03/12/17 10:05 Dose: 250 mls/hr Insulin Human Regular (Novolin R) 0 unit SC Q6 TENA PRN Reason: Protocol Last Admin: 03/12/17 12:10 Dose: 2 unit Pantoprazole Sodium (Protonix Inj) 40 mg IVP DAILY [facility] Last Admin: 03/12/17 10:05 Dose: 40 mg Phenobarbital (Phenobarbital Inj) 90 mg IV Q8 TENA Last Admin: 03/12/17 05:37 Dose: 90 mg Potassium Chloride (Potassium Chloride Oral Soln) 20 meq GT ONCE TENA Last Admin: 03/09/17 13:52 Dose: 20 meq - Labs Labs: 03/12/17 06:11 03/12/17 06:11 PT 13.6 SECONDS (9.7-12.2) H 03/10/17 12:24 INR 1.2 03/10/17 12:24 APTT 32 SECONDS (21-34) 03/10/17 12:24 - Constitutional Appears: Well, Non-toxic, No Acute Distress - Extremities Exam Additional comments: Right lower extremity exam DERM: Open wound noted to medial aspect of right Hallux amputation site measuring 3.5cm x 2cm x 0.6cm with mostly fibrotic base. Mild purulent drainage is noted with slightly macerated wound margins. Wen wound erythema measures < 1cm margin. Mal-odor is present. VASC: Palpable DP noted at 1/4, non-palpable PT noted. MESS COOK less than 3 seconds to all digits noted. - Neurological Exam Neurological Exam: Alert, Awake, Oriented x3 - Psychiatric Exam Psychiatric exam: Normal Affect, Normal Mood Assessment and Plan - Assessment and Plan (Free Text) Assessment: 52 yo male patient presenting with open wound to right Hallux amputation site Plan: patient seen and evaluated at bedside seen at bedside with attending Dr. Guzman labs and vitals reviewed WBC 7.2 Right foot dressed with Santyl,DSD Podiatry continue to follow In house <Uriel Guzman - Last Filed: 03/13/17 08:48> Objective - Vital Signs/Intake and Output Vital Signs (last 24 hours): Temp Pulse Resp BP Pulse Ox 99.1 F 88 18 121/70 100 10/31/17 08:00 03/13/17 08:00 03/13/17 08:00 03/13/17 08:00 03/13/17 08:00 Intake and Output: 03/13/17 03/13/17 06:59 18:59 Intake Total 520 35 Output Total 1200 80 Balance -680 -45 - Medications Medications: Current Medications Acetaminophen (Tylenol 650mg/20.3ml Solution Ud) 650 mg PO Q4 PRN PRN Reason: temp >101 Last Admin: 03/12/17 00:29 Dose: 650 mg Albuterol/Ipratropium (Duoneb 3 Mg/0.5 Mg (3 Ml) Ud) 3 ml INH RQ6 TENA Last Admin: 03/13/17 07:05 Dose: 3 ml Artificial Tears (Lacri-Lube) 0 gm OS Q4H PRN PRN Reason: Other Last Admin: 03/12/17 10:07 Dose: 3.5 gm Calcium Acetate (Phoslo) 667 mg GT TIDCC TENA Last Admin: 03/12/17 16:44 Dose: 667 mg Collagenase (Santyl) 0 gm TOP DAILY TENA Last Admin: 03/12/17 10:09 Dose: 1 applic Heparin Sodium (Porcine) (Heparin) 5,000 units SC Q8 TENA Last Admin: 03/13/17 05:50 Dose: 5,000 units Piperacillin Sod/Tazobactam Sod (Zosyn 2.25 Gm Iv Premix) 2.25 gm in 50 mls @ 100 mls/hr IVPB Q6H TENA Last Admin: 03/13/17 03:28 Dose: 100 mls/hr Vancomycin HCl/Dextrose (Vancocin) 500 mg in 100 mls @ 100 mls/hr IVPB DAILY [facility] Stop: 03/13/17 10:01 Last Admin: 03/12/17 10:06 Dose: 100 mls/hr Azithromycin 500 mg/ Sodium (Chloride) 250 mls @ 250 mls/hr IVPB DAILY [facility] Last Admin: 03/12/17 10:05 Dose: 250 mls/hr Insulin Human Regular (Novolin R) 0 unit SC Q6 TENA PRN Reason: Protocol Last Admin: 03/13/17 05:51 Dose: 6 unit Pantoprazole Sodium (Protonix Inj) 40 mg IVP DAILY [facility] Last Admin: 03/12/17 10:05 Dose: 40 mg Phenobarbital (Phenobarbital Inj) 90 mg IV Q8 TENA Last Admin: 03/13/17 05:52 Dose: Not Given Potassium Chloride (Potassium Chloride Oral Soln) 20 meq GT ONCE TENA Last Admin: 03/09/17 13:52 Dose: 20 meq - Labs Labs: 03/13/17 06:20 03/13/17 06:18 PT 13.6 SECONDS (9.7-12.2) H 03/10/17 12:24 INR 1.2 03/10/17 12:24 APTT 32 SECONDS (21-34) 03/10/17 12:24 Assessment and Plan - Assessment and Plan (Free Text) Plan: pt seen at bedside with resident .agree yamileyh above findings .labs and chart reviewed . we applied santyl dsd and will continue local wound care . no signs of infection noted in foot.
--- NOTE | 2017-03-12 14:32 | CP.CCUPN ---
CCU Subjective - Physician Review Subjective (Free Text): Patient seen and examined at bedside. ROS unobtainable due to patient's current clinical status. Patient is on ventilator support. No changes in mental status. CCU Objective - Vital Signs / Intake & Output Intake and Output (Last 8hrs): Intake & Output 03/11/17 03/12/17 03/12/17 22:59 06:59 14:59 Intake Total 408 288 198 Output Total 950 800 600 Balance -542 -512 -402 Weight 170 lb Intake: IV 20 20 Intake, IV Amount 108 8 3 Right Antecubital 100 Right Hand 8 8 3 Tube Feeding 280 280 175 Output: Urine 950 800 600 Urethral (Gipson) 950 800 600 Other: # Bowel Movements 0 - Physical Exam Head: Positive for: Atraumatic, Normocephalic Mouth: Positive for: Moist Mucous Membranes Respiratory/Chest: Positive for: Rales Cardiovascular: Positive for: Regular Rate and Rhythm, Normal S1, S2 Abdomen: Negative for: Distention Lower Extremity: Positive for: Other (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 Negative for: Alert, Oriented x 3 - Medications Active Medications: Active Medications Generic Name Dose Route Start Last Admin Trade Name Freq PRN Reason Stop Dose Admin Acetaminophen 650 mg 03/05/17 22:55 03/12/17 00:29 Tylenol 650mg/20.3ml Solution Ud PO 650 mg Q4 PRN Administration temp >101 Albuterol/Ipratropium 3 ml 03/10/17 20:00 03/12/17 13:12 Duoneb 3 Mg/0.5 Mg (3 Ml) Ud INH 3 ml RQ6 TENA Administration Artificial Tears 0 gm 03/06/17 10:04 03/12/17 10:07 Lacri-Lube OS 3.5 gm Q4H PRN Administration Other Calcium Acetate 667 mg 03/08/17 10:00 03/12/17 12:10 Phoslo GT 667 mg TIDCC TENA Administration Collagenase 0 gm 03/10/17 10:00 03/12/17 10:09 Santyl TOP 1 applic DAILY TENA Administration Piperacillin Sod/Tazobactam Sod 2.25 gm in 50 mls @ 100 mls/hr 03/04/17 21:30 03/12/17 11:03 Zosyn 2.25 Gm Iv Premix IVPB 100 mls/hr Q6H TENA Administration Vancomycin HCl/Dextrose 500 mg in 100 mls @ 100 mls/hr 03/08/17 11:00 10:06 Vancocin IVPB 03/13/17 10:01 100 mls/hr DAILY TENA Administration Azithromycin 500 mg/ Sodium 250 mls @ 250 mls/hr 03/11/17 10:00 03/12/17 10: 05 Chloride IVPB 250 mls/hr DAILY TENA Administration Insulin Human Regular 0 unit 03/08/17 09:35 03/12/17 12:10 Novolin R SC 2 unit Q6 TENA Administration Protocol Pantoprazole Sodium 40 mg 03/05/17 10:00 03/12/17 10:05 Protonix Inj IVP 40 mg DAILY TENA Administration Phenobarbital 90 mg 03/10/17 06:00 03/12/17 05:37 Phenobarbital Inj IV 90 mg Q8 TENA Administration Potassium Chloride 20 meq 03/09/17 13:15 03/09/17 13:52 Potassium Chloride Oral Soln GT 20 meq ONCE TENA Administration - Patient Studies Lab Studies: Lab Studies 03/12/17 03/12/17 03/12/17 Range/Units 11:56 06:11 06:11 WBC 7.2 (4.8-10.8) K/uL RBC 2.85 L (4.40-5.90) Mil/uL Hgb 8.6 L (12.0-18.0) g/dL Hct 26.1 L (35.0-51.0) % MCV 91.3 (80.0-94.0) fL MCH 30.1 (27.0-31.0) pg MCHC 33.0 (33.0-37.0) g/dL RDW 15.8 H (11.5-14.5) % Plt Count 118 L (130-400) K/uL MPV 10.1 (7.2-11.7) fL Neut % (Auto) 71.2 (50.0-75.0) % Lymph % (Auto) 17.5 L (20.0-40.0) % [place] % (Auto) 6.6 (0.0-10.0) % Eos % (Auto) 4.2 H (0.0-4.0) % Baso % (Auto) 0.5 (0.0-2.0) % Neut # 5.1 (1.8-7.0) K/uL Lymph # 1.3 (1.0-4.3) K/uL [place] # 0.5 (0.0-0.8) K/uL Eos # 0.3 (0.0-0.7) K/uL Baso # 0.0 (0.0-0.2) K/uL Puncture Site pCO2 (35-45) mm/Hg pO2 (80-100) mm/Hg HCO3 (21-28) mmol/L ABG pH (7.35-7.45) ABG Total CO2 (22-28) mmol/L ABG O2 Saturation (95-98) % ABG Base Excess (-2.0-3.0) mmol/L ABG Hemoglobin (11.7-17.4) g/dL ABG Carboxyhemoglobin (0.5-1.5) % POC ABG HHb (Measured) (0.0-5.0) % ABG Methemoglobin (0.0-3.0) % Reji Test A-a O2 Difference mm/Hg Respiratory Index Hgb O2 Saturation (95.0-98.0) % Vent Mode Mechanical Rate FiO2 % Tidal Volume PEEP Sodium 144 (132-148) mmol/L Potassium 3.7 (3.6-5.2) mmol/L Chloride 107 (98-107) mmol/L Carbon Dioxide 28 (22-30) mmol/L Anion Gap 13 (10-20) BUN 52 H (9-20) mg/dL Creatinine 2.6 H (0.8-1.5) mg/dL Est GFR ( Amer) 32 Est GFR (Non-Af Amer) 26 POC Glucose (mg/dL) 159 H (65-110) mg/dL Random Glucose 193 H (75-110) mg/dL Calcium 7.4 L (8.6-10.4) mg/dl Phosphorus 3.7 (2.5-4.5) mg/dL Magnesium 2.1 (1.6-2.3) mg/dL Total Bilirubin 0.6 (0.2-1.3) mg/dL AST 47 (17-59) U/L ALT 43 (21-72) U/L Alkaline Phosphatase 69 (38-126) U/L Total Protein 5.6 L (6.3-8.3) g/dL Albumin 2.7 L (3.5-5.0) g/dL Globulin 2.9 (2.2-3.9) gm/dL Albumin/Globulin Ratio 0.9 L (1.0-2.1) 03/12/17 03/12/17 03/12/17 Range/Units 05:18 05:04 00:23 WBC (4.8-10.8) K/uL RBC (4.40-5.90) Mil/uL Hgb (12.0-18.0) g/dL Hct (35.0-51.0) % MCV (80.0-94.0) fL MCH (27.0-31.0) pg MCHC (33.0-37.0) g/dL RDW (11.5-14.5) % Plt Count (130-400) K/uL MPV (7.2-11.7) fL Neut % (Auto) (50.0-75.0) % Lymph % (Auto) (20.0-40.0) % [place] % (Auto) (0.0-10.0) % Eos % (Auto) (0.0-4.0) % Baso % (Auto) (0.0-2.0) % Neut # (1.8-7.0) K/uL Lymph # (1.0-4.3) K/uL [place] # (0.0-0.8) K/uL Eos # (0.0-0.7) K/uL Baso # (0.0-0.2) K/uL Puncture Site Lr pCO2 43 (35-45) mm/Hg pO2 114 H (80-100) mm/Hg HCO3 29.1 H (21-28) mmol/L ABG pH 7.45 (7.35-7.45) ABG Total CO2 31.2 H (22-28) mmol/L ABG O2 Saturation 98.5 H (95-98) % ABG Base Excess 5.4 H (-2.0-3.0) mmol/L ABG Hemoglobin 8.5 L (11.7-17.4) g/dL ABG Carboxyhemoglobin 1.4 (0.5-1.5) % POC ABG HHb (Measured) 1.5 (0.0-5.0) % ABG Methemoglobin 1.0 (0.0-3.0) % Reji Test Na A-a O2 Difference 189.0 mm/Hg Respiratory Index 1.7 Hgb O2 Saturation 96.2 (95.0-98.0) % Vent Mode Prvc Mechanical Rate 16 FiO2 50.0 % Tidal Volume 450 PEEP 5 Sodium (132-148) mmol/L Potassium (3.6-5.2) mmol/L Chloride (98-107) mmol/L Carbon Dioxide (22-30) mmol/L Anion Gap (10-20) BUN (9-20) mg/dL Creatinine (0.8-1.5) mg/dL Est GFR ( Amer) Est GFR (Non-Af Amer) POC Glucose (mg/dL) 203 H 249 H (65-110) mg/dL Random Glucose (75-110) mg/dL Calcium (8.6-10.4) mg/dl Phosphorus (2.5-4.5) mg/dL Magnesium (1.6-2.3) mg/dL Total Bilirubin (0.2-1.3) mg/dL AST (17-59) U/L ALT (21-72) U/L Alkaline Phosphatase (38-126) U/L Total Protein (6.3-8.3) g/dL Albumin (3.5-5.0) g/dL Globulin (2.2-3.9) gm/dL Albumin/Globulin Ratio (1.0-2.1) 03/12/17 03/11/17 Range/Units 00:23 18:00 WBC (4.8-10.8) K/uL RBC (4.40-5.90) Mil/uL Hgb (12.0-18.0) g/dL Hct (35.0-51.0) % MCV (80.0-94.0) fL MCH (27.0-31.0) pg MCHC (33.0-37.0) g/dL RDW (11.5-14.5) % Plt Count (130-400) K/uL MPV (7.2-11.7) fL Neut % (Auto) (50.0-75.0) % Lymph % (Auto) (20.0-40.0) % [place] % (Auto) (0.0-10.0) % Eos % (Auto) (0.0-4.0) % Baso % (Auto) (0.0-2.0) % Neut # (1.8-7.0) K/uL Lymph # (1.0-4.3) K/uL [place] # (0.0-0.8) K/uL Eos # (0.0-0.7) K/uL Baso # (0.0-0.2) K/uL Puncture Site pCO2 (35-45) mm/Hg pO2 (80-100) mm/Hg HCO3 (21-28) mmol/L ABG pH (7.35-7.45) ABG Total CO2 (22-28) mmol/L ABG O2 Saturation (95-98) % ABG Base Excess (-2.0-3.0) mmol/L ABG Hemoglobin (11.7-17.4) g/dL ABG Carboxyhemoglobin (0.5-1.5) % POC ABG HHb (Measured) (0.0-5.0) % ABG Methemoglobin (0.0-3.0) % Reji Test A-a O2 Difference mm/Hg Respiratory Index Hgb O2 Saturation (95.0-98.0) % Vent Mode Mechanical Rate FiO2 % Tidal Volume PEEP Sodium (132-148) mmol/L Potassium (3.6-5.2) mmol/L Chloride (98-107) mmol/L Carbon Dioxide (22-30) mmol/L Anion Gap (10-20) BUN (9-20) mg/dL Creatinine (0.8-1.5) mg/dL Est GFR ( Amer) Est GFR (Non-Af Amer) POC Glucose (mg/dL) 249 H 219 H (65-110) mg/dL Random Glucose (75-110) mg/dL Calcium (8.6-10.4) mg/dl Phosphorus (2.5-4.5) mg/dL Magnesium (1.6-2.3) mg/dL Total Bilirubin (0.2-1.3) mg/dL AST (17-59) U/L ALT (21-72) U/L Alkaline Phosphatase (38-126) U/L Total Protein (6.3-8.3) g/dL Albumin (3.5-5.0) g/dL Globulin (2.2-3.9) gm/dL Albumin/Globulin Ratio (1.0-2.1) Laboratory Results - last 24 hr 03/11/17 03/12/17 03/12/17 18:00 00:23 00:23 WBC RBC Hgb Hct MCV MCH MCHC RDW Plt Count MPV Neut % (Auto) Lymph % (Auto) [place] % (Auto) Eos % (Auto) Baso % (Auto) Neut # Lymph # [place] # Eos # Baso # Puncture Site pCO2 pO2 HCO3 ABG pH ABG Total CO2 ABG O2 Saturation ABG Base Excess ABG Hemoglobin ABG Carboxyhemoglobin POC ABG HHb (Measured) ABG Methemoglobin Reji Test A-a O2 Difference Respiratory Index Hgb O2 Saturation Vent Mode Mechanical Rate FiO2 Tidal Volume PEEP Sodium Potassium Chloride Carbon Dioxide Anion Gap BUN Creatinine Est GFR ( Amer) Est GFR (Non-Af Amer) POC Glucose (mg/dL) 219 H 249 H 249 H Random Glucose Calcium Phosphorus Magnesium Total Bilirubin AST ALT Alkaline Phosphatase Total Protein Albumin Globulin Albumin/Globulin Ratio 03/12/17 03/12/17 03/12/17 05:04 05:18 06:11 WBC 7.2 RBC 2.85 L Hgb 8.6 L Hct 26.1 L MCV 91.3 MCH 30.1 MCHC 33.0 RDW 15.8 H Plt Count 118 L MPV 10.1 Neut % (Auto) 71.2 Lymph % (Auto) 17.5 L [place] % (Auto) 6.6 Eos % (Auto) 4.2 H Baso % (Auto) 0.5 Neut # 5.1 Lymph # 1.3 [place] # 0.5 Eos # 0.3 Baso # 0.0 Puncture Site Lr pCO2 43 pO2 114 H HCO3 29.1 H ABG pH 7.45 ABG Total CO2 31.2 H ABG O2 Saturation 98.5 H ABG Base Excess 5.4 H ABG Hemoglobin 8.5 L ABG Carboxyhemoglobin 1.4 POC ABG HHb (Measured) 1.5 ABG Methemoglobin 1.0 Reji Test Na A-a O2 Difference 189.0 Respiratory Index 1.7 Hgb O2 Saturation 96.2 Vent Mode Prvc Mechanical Rate 16 FiO2 50.0 Tidal Volume 450 PEEP 5 Sodium Potassium Chloride Carbon Dioxide Anion Gap BUN Creatinine Est GFR ( Amer) Est GFR (Non-Af Amer) POC Glucose (mg/dL) 203 H Random Glucose Calcium Phosphorus Magnesium Total Bilirubin AST ALT Alkaline Phosphatase Total Protein Albumin Globulin Albumin/Globulin Ratio 03/12/17 03/12/17 06:11 11:56 WBC RBC Hgb Hct MCV MCH MCHC RDW Plt Count MPV Neut % (Auto) Lymph % (Auto) [place] % (Auto) Eos % (Auto) Baso % (Auto) Neut # Lymph # [place] # Eos # Baso # Puncture Site pCO2 pO2 HCO3 ABG pH ABG Total CO2 ABG O2 Saturation ABG Base Excess ABG Hemoglobin ABG Carboxyhemoglobin POC ABG HHb (Measured) ABG Methemoglobin Reji Test A-a O2 Difference Respiratory Index Hgb O2 Saturation Vent Mode Mechanical Rate FiO2 Tidal Volume PEEP Sodium 144 Potassium 3.7 Chloride 107 Carbon Dioxide 28 Anion Gap 13 BUN 52 H Creatinine 2.6 H Est GFR ( Amer) 32 Est GFR (Non-Af Amer) 26 POC Glucose (mg/dL) 159 H Random Glucose 193 H Calcium 7.4 L Phosphorus 3.7 Magnesium 2.1 Total Bilirubin 0.6 AST 47 ALT 43 Alkaline Phosphatase 69 Total Protein 5.6 L Albumin 2.7 L Globulin 2.9 Albumin/Globulin Ratio 0.9 L Fingerstick Blood Sugar Results: 159 Review of Systems - Review of Systems Systems not reviewed;Unavailable: Intubated Critical Care Progress Note - Ventilator Checklist Head of Bed 30 Degrees: Yes Daily Sedation Vacation: Yes Assessment/Plan - Assessment and Plan (Free Text) Plan: Assessment: 52 y/o M with pmhx of HTN, DM II, kidney disease, who was brought to the ED after he collapsed in ED at home and was found in asystole. Patient given 3 doses of epi and CPR for 15 minutes then ROSC. Patient intubated in the field. Patient went into cardiac arrest twice more in the ICU. Neuro: Intubated, altered mental status (no improvement) Medication and Management: * Ativan 1 mg q2h PRN seizure activitiy * Keppra 500 mg q12h * Dr. Rascon consulted, help appreciated Imaging: Head CT (03/04): chronic microvascular ischemic changes, no acute intracranial hemorrhage EEG (03/05/17): periodic paroxysmal activities lasting about 2-3 seconds with intermittent burst suppression suggestive of status epileptiform activities. Head CT (03/06/17): nonspecific white matter changes f/u EEG (03/07/17) Pulm: Respiratory distress secondary to cardiac arrest Medication and Management * Patient intubated * Lasix d/c * gipson to measure urine output * Propofol 5mcg/kg/min Imaging: Chest X-ray (03/07/17): Minimal left pleural effusion, CHF improving Cardio: s/p cardiac arrest Medication and management: * Off of pressors * Dr. Tate consulted, help appreciated * Echo (03/04/17): LVEF:42, mild to moderate LV systolic dysfunction. Normal chamber size. Trace MR and TR. Trace pericardial effusion. Pleural effusion. Heme: anemia Medication and management: * 03/12 Hgb 8.6 - continue to monitor and transfuse as needed * 03/06/17: HgB/Hct: 7/20.6, transfused 2 u PRBCs * 03/07/17: HgB/ Hct: 9.6/28.2 Endo: DM II Medication and management: * Regular ISS- increased to high on 03/08 * accucheck q6h * HgA1C: 9.4 Renal: SAUNDRA Medication and management: * Lasix d/c on 03/08 * f/u recommendation as per Dr. Charles - monitor lytes * K+ wnl today (hx hyperkalemia) * BUN/CR 52/2.6 improving from BUN/Cr: 62/2.9 MSK: right foot wound secondary to first metatarsal amputation Medication and management: * Wound care - Right foot dressed with CORNELIUS Mueller * Dr. Guzman, podiatry, consulted- help appreciated ID: Medication and management: * Vanco decreased to 500 daily on 03/08 * Zosyn 2.25 grams IVPB [id number] - started 03/04 * Azithromycin 250mg IVPB daily - started 03/11 * MRSA in nose * Urine culture (-) * blood culture (-) * Dr. Shore consulted, help appreciated Prophylaxis: DVT: Heparin 5,000 u sc q8h GI: Protonix 40 mg IVP daily glucerna feeds at 35ml/hr, 100 cc free water flushes q6h Prognosis is very poor. Possible tracheostomy. Will need family meeting.
--- NOTE | 2017-03-12 17:59 | PN ---
DATE: LOCATION: ICU 17. SUBJECTIVE: This is a 52-year-old male, seen in rounds in the presence of some family members, is still intubated, unresponsive with period of what appears to be seizure disorder. He is still on NG tube feeding. Most recent chest x-ray done today showed improvement of right-sided infiltrate. PHYSICAL EXAMINATION: GENERAL: A 52 years old male, intubated, sedated. VITAL SIGNS: Afebrile with pulse of 96 and blood pressure 120/72. HEENT: Show pale dry oral mucoid membrane. Nonicteric sclerae. LUNGS: Few scattered crepitations, decreased air entry at bases. HEART: Positive S1 and S2. ABDOMEN: Soft. Bowel sounds are present but hypoactive. EXTREMITIES: With edematous changes. No clubbing or cyanosis. NEUROLOGIC: No new reported neurological deficits, sensory or motor. It has to be mentioned that the patient still has an open wound of the right foot. IMPRESSION: 1. Status post cardiac arrest, not responding to verbal or painful stimuli with respiratory failure. 2. The patient is still intubated with pneumonia. 3. Anemia. 4. Malnutrition. 5. The patient is a candidate for percutaneous endoscopic gastrostomy insertion obtaining a legal consent. SUGGESTIONS: 1. Continue current management. 2. central hyperalimentation. 3. Blood transfusion to get hemoglobin around 10 gram percent only as needed. 4. Supportive treatment to follow. It has to be mentioned that the patient did not sign yet for PEG insertion and no official consent is obtained. Yola Sim MD cc: Yola Sim MD
--- NOTE | 2017-03-12 20:11 | CP.PCM.PN ---
Subjective - Date & Time of Evaluation Date of Evaluation: 03/12/17 Time of Evaluation: 11:40 - Subjective Subjective: Clinically same Objective - Vital Signs/Intake and Output Vital Signs (last 24 hours): Temp Pulse Resp BP Pulse Ox 99.7 F H 102 H 16 126/69 100 03/12/17 16:00 03/12/17 20:00 03/12/17 20:00 03/12/17 20:00 03/12/17 20:00 Intake and Output: 03/12/17 03/13/17 18:59 06:59 Intake Total 1203 35 Output Total 1395 100 Balance -192 -65 - Medications Medications: Current Medications Acetaminophen (Tylenol 650mg/20.3ml Solution Ud) 650 mg PO Q4 PRN PRN Reason: temp >101 Last Admin: 03/12/17 00:29 Dose: 650 mg Albuterol/Ipratropium (Duoneb 3 Mg/0.5 Mg (3 Ml) Ud) 3 ml INH RQ6 TENA Last Admin: 03/12/17 19:12 Dose: 3 ml Artificial Tears (Lacri-Lube) 0 gm OS Q4H PRN PRN Reason: Other Last Admin: 03/12/17 10:07 Dose: 3.5 gm Calcium Acetate (Phoslo) 667 mg GT TIDCC TENA Last Admin: 03/12/17 16:44 Dose: 667 mg Collagenase (Santyl) 0 gm TOP DAILY TENA Last Admin: 03/12/17 10:09 Dose: 1 applic Heparin Sodium (Porcine) (Heparin) 5,000 units SC Q8 TENA Last Admin: 03/12/17 14:49 Dose: 5,000 units Piperacillin Sod/Tazobactam Sod (Zosyn 2.25 Gm Iv Premix) 2.25 gm in 50 mls @ 100 mls/hr IVPB Q6H [facility] Last Admin: 03/12/17 14:51 Dose: 100 mls/hr Vancomycin HCl/Dextrose (Vancocin) 500 mg in 100 mls @ 100 mls/hr IVPB DAILY [facility] Stop: 03/13/17 10:01 Last Admin: 03/12/17 10:06 Dose: 100 mls/hr Azithromycin 500 mg/ Sodium (Chloride) 250 mls @ 250 mls/hr IVPB DAILY [facility] Last Admin: 03/12/17 10:05 Dose: 250 mls/hr Insulin Human Regular (Novolin R) 0 unit SC Q6 TENA PRN Reason: Protocol Last Admin: 03/12/17 17:38 Dose: 4 unit Pantoprazole Sodium (Protonix Inj) 40 mg IVP DAILY [facility] Last Admin: 03/12/17 10:05 Dose: 40 mg Phenobarbital (Phenobarbital Inj) 90 mg IV Q8 [facility] Last Admin: 03/12/17 14:46 Dose: 90 mg Potassium Chloride (Potassium Chloride Oral Soln) 20 meq GT ONCE [facility] Last Admin: 03/09/17 13:52 Dose: 20 meq - Labs Labs: 03/12/17 06:11 03/12/17 06:11 PT 13.6 SECONDS (9.7-12.2) H 03/10/17 12:24 INR 1.2 03/10/17 12:24 APTT 32 SECONDS (21-34) 03/10/17 12:24 - Constitutional Appears: Well - Head Exam Head Exam: ATRAUMATIC, NORMAL INSPECTION, NORMOCEPHALIC - Eye Exam Eye Exam: EOMI, Normal appearance, PERRL - ENT Exam ENT Exam: Mucous Membranes Moist, Normal Exam - Neck Exam Neck Exam: Full ROM, Normal Inspection. absent: Lymphadenopathy - Respiratory Exam Respiratory Exam: Decreased Breath Sounds - Cardiovascular Exam Cardiovascular Exam: REGULAR RHYTHM, +S1, +S2. absent: Murmur - GI/Abdominal Exam GI & Abdominal Exam: Diminished Bowel Sounds - Rectal Exam Rectal Exam: Deferred Assessment and Plan (1) Anemia Status: Acute (2) Anoxic encephalopathy Status: Acute (3) Anoxic encephalopathy Status: Acute (4) CHF (congestive heart failure) Status: Acute (5) Cardiac arrest Status: Acute (6) Coagulopathy Status: Acute (7) Open wound of right foot with complication Status: Acute (8) Respiratory failure Status: Acute (9) SAUNDRA (acute kidney injury) Status: Resolved - Assessment and Plan (Free Text) Plan: Patient examined. Patient unresponsive on ventilator. Continue piperacillin, vancomycin, azithromycin. Continue supportive care.
[2017-03-13] MEDS: (Novolin R) Insulin Human Regular 100 units/ml vial SC SCH ×4 (01:00→20:00)
[2017-03-13] MEDS: Albuterol-Ipratrop 3 mg / 0.5 (3 ml) UD INH SCH ×4 (01:49→19:44)
[2017-03-13] MEDS: Piperacill/Tazo 2.25gm in Dex 2.25 GM/50 ML BAG IVPB SCH ×3 (03:28→14:54)
[2017-03-13 05:54] LABS: ABG ALLEN TEST POS; ABG MECHANICAL RATE 16; ARTERIAL BLOOD GAS MODE PRVC; ATERIAL BLOOD GAS PEEP 5; CARBOXYHEMOGLOBIN 1.5 % (0.5-1.5); DRAW SITE RR; HHB 0.8 % (0.0-5.0); METHEMOGLOBIN 0.6 % (0.0-3.0)
[2017-03-13 06:38] LABS: BASO # 0.1 K/uL (0.0-0.2); BASO % 0.6 % (0.0-2.0); EOS # 0.2 K/uL (0.0-0.7); EOS % 2.9 % (0.0-4.0); HEMATOCRIT 32.2 % (35.0-51.0); LYMPH # 1.3 K/uL (1.0-4.3); LYMPH % 15.7 % (20.0-40.0); MEAN CELL VOLUME 91.8 fL (80.0-94.0); MEAN CORPUSCULAR HEMOGLOBIN 30.3 pg (27.0-31.0); MEAN PLATELET VOLUME 10.4 fL (7.2-11.7); MONO # 0.5 K/uL (0.0-0.8); MONO % 6.2 % (0.0-10.0); RED CELL DISTRIBUTION WIDTH 15.7 % (11.5-14.5); WHITE BLOOD COUNT 8.4 K/uL (4.8-10.8)
[2017-03-13 06:58] LABS: POTASSIUM 3.8 mmol/L (3.6-5.2)
[2017-03-13 07:00] LABS: ALB/GLOB RATIO 0.7 (1.0-2.1); BILIRUBIN,TOTAL 0.4 mg/dL (0.2-1.3); TOTAL PROTEIN 7.3 g/dL (6.3-8.3)
[2017-03-13 07:01] LABS: CALCIUM 7.9 mg/dl (8.6-10.4); MAGNESIUM 2.2 mg/dL (1.6-2.3); PHOSPHOROUS 3.9 mg/dL (2.5-4.5)
--- NOTE | 2017-03-13 08:52 | RAD ---
HISTORY: on vent COMPARISON: 03/12/2017 FINDINGS: LUNGS: Lines and tubes in stable position. Persistent patchy consolidative changes within the right infrahilar region and left lung base with small left pleural effusion. Right basilar airspace opacity. Mild to moderate venous congestion. Right hilar prominence. Biapical pleural thickening with upper lobe granulomatous changes. PLEURA: As above. CARDIOVASCULAR: Mild cardiomegaly. OSSEOUS STRUCTURES: Degenerative changes in the spine and shoulders. VISUALIZED UPPER ABDOMEN: Normal. OTHER FINDINGS: None. IMPRESSION: Lines and tubes in stable position. Persistent patchy consolidative changes within the right infrahilar region and left lung base with small left pleural effusion. Right basilar airspace opacity. Mild to moderate venous congestion. Right hilar prominence. Biapical pleural thickening with upper lobe granulomatous changes.
[2017-03-13] MEDS: Vancomycin 500mg/D5W 100 ml 500 MG/100 ML BAG IVPB SCH (09:21)
[2017-03-13] MEDS: Azithromycin 500 MG in Sodium Chloride 0.9% 250 ML IVPB SCH (09:22)
--- NOTE | 2017-03-13 11:21 | CP.PCM.PN ---
Subjective - Date & Time of Evaluation Date of Evaluation: 03/13/17 Time of Evaluation: 09:00 - Subjective Subjective: intubated unresponsive Objective - Vital Signs/Intake and Output Vital Signs (last 24 hours): Temp Pulse Resp BP Pulse Ox 99.1 F 99 H 26 H 113/64 100 03/13/17 08:00 03/13/17 11:00 03/13/17 11:00 03/13/17 11:00 03/13/17 09:00 Intake and Output: 03/13/17 03/13/17 06:59 18:59 Intake Total 520 320 Output Total 1200 80 Balance -680 240 - Medications Medications: Current Medications Acetaminophen (Tylenol 650mg/20.3ml Solution Ud) 650 mg PO Q4 PRN PRN Reason: temp >101 Last Admin: 03/12/17 00:29 Dose: 650 mg Albuterol/Ipratropium (Duoneb 3 Mg/0.5 Mg (3 Ml) Ud) 3 ml INH RQ6 [facility] Last Admin: 03/13/17 07:05 Dose: 3 ml Artificial Tears (Lacri-Lube) 0 gm OS Q4H PRN PRN Reason: Other Last Admin: 03/12/17 10:07 Dose: 3.5 gm Calcium Acetate (Phoslo) 667 mg GT TIDCC [facility] Last Admin: 03/13/17 09:20 Dose: 667 mg Collagenase (Santyl) 0 gm TOP DAILY [facility] Last Admin: 03/12/17 10:09 Dose: 1 applic Heparin Sodium (Porcine) (Heparin) 5,000 units SC Q8 [facility] Last Admin: 03/13/17 09:20 Dose: 5,000 units Piperacillin Sod/Tazobactam Sod (Zosyn 2.25 Gm Iv Premix) 2.25 gm in 50 mls @ 100 mls/hr IVPB Q6H [facility] Last Admin: 03/13/17 09:23 Dose: 100 mls/hr Azithromycin 500 mg/ Sodium (Chloride) 250 mls @ 250 mls/hr IVPB DAILY [facility] Last Admin: 03/13/17 09:22 Dose: 250 mls/hr Insulin Human Regular (Novolin R) 0 unit SC Q6 TENA PRN Reason: Protocol Last Admin: 03/13/17 05:51 Dose: 6 unit Pantoprazole Sodium (Protonix Inj) 40 mg IVP DAILY [facility] Last Admin: 03/13/17 09:20 Dose: 40 mg Phenobarbital (Phenobarbital Inj) 90 mg IV Q8 [facility] Last Admin: 03/13/17 05:52 Dose: Not Given Potassium Chloride (Potassium Chloride Oral Soln) 20 meq GT ONCE [facility] Last Admin: 03/09/17 13:52 Dose: 20 meq - Labs Labs: 03/13/17 06:20 03/13/17 06:18 PT 13.6 SECONDS (9.7-12.2) H 03/10/17 12:24 INR 1.2 03/10/17 12:24 APTT 32 SECONDS (21-34) 03/10/17 12:24 - Constitutional Appears: Non-toxic, Chronically Ill - Head Exam Head Exam: NORMOCEPHALIC - Eye Exam Eye Exam: PERRL - ENT Exam ENT Exam: Mucous Membranes Dry - Neck Exam Neck Exam: absent: Lymphadenopathy - Respiratory Exam Respiratory Exam: Decreased Breath Sounds - Cardiovascular Exam Cardiovascular Exam: REGULAR RHYTHM - GI/Abdominal Exam GI & Abdominal Exam: Distended, Soft - Rectal Exam Rectal Exam: Deferred - Exam Exam: NORMAL INSPECTION - Extremities Exam Extremities Exam: absent: Pedal Edema - Back Exam Back Exam: absent: CVA tenderness (L), CVA tenderness (R) - Neurological Exam Neurological Exam: Altered Assessment and Plan (1) Cardiac arrest Status: Acute (2) Open wound of right foot with complication Status: Acute (3) Respiratory failure Status: Acute
--- NOTE | 2017-03-13 12:49 | CP.PCM.PN ---
Subjective - Date & Time of Evaluation Date of Evaluation: 03/13/17 Time of Evaluation: 12:48 - Subjective Subjective: seen and examined no events family at bedside unable to obtain ros due to ams intubated Objective - Vital Signs/Intake and Output Vital Signs (last 24 hours): Temp Pulse Resp BP Pulse Ox 99 F 104 H 23 123/62 100 03/13/17 12:00 03/13/17 12:00 03/13/17 12:00 03/13/17 12:00 03/13/17 12:00 Intake and Output: 03/13/17 03/13/17 06:59 18:59 Intake Total 520 355 Output Total 1200 330 Balance -680 25 - Medications Medications: Current Medications Acetaminophen (Tylenol 650mg/20.3ml Solution Ud) 650 mg PO Q4 PRN PRN Reason: temp >101 Last Admin: 03/12/17 00:29 Dose: 650 mg Albuterol/Ipratropium (Duoneb 3 Mg/0.5 Mg (3 Ml) Ud) 3 ml INH RQ6 [facility] Last Admin: 03/13/17 07:05 Dose: 3 ml Artificial Tears (Lacri-Lube) 0 gm OS Q4H PRN PRN Reason: Other Last Admin: 03/12/17 10:07 Dose: 3.5 gm Calcium Acetate (Phoslo) 667 mg GT TIDCC TENA Last Admin: 03/13/17 09:20 Dose: 667 mg Collagenase (Santyl) 0 gm TOP DAILY [facility] Last Admin: 03/12/17 10:09 Dose: 1 applic Heparin Sodium (Porcine) (Heparin) 5,000 units SC Q8 [facility] Last Admin: 03/13/17 09:20 Dose: 5,000 units Piperacillin Sod/Tazobactam Sod (Zosyn 2.25 Gm Iv Premix) 2.25 gm in 50 mls @ 100 mls/hr IVPB Q6H [facility] Last Admin: 03/13/17 09:23 Dose: 100 mls/hr Azithromycin 500 mg/ Sodium (Chloride) 250 mls @ 250 mls/hr IVPB DAILY [facility] Last Admin: 03/13/17 09:22 Dose: 250 mls/hr Insulin Human Regular (Novolin R) 0 unit SC Q6 TENA PRN Reason: Protocol Last Admin: 03/13/17 05:51 Dose: 6 unit Pantoprazole Sodium (Protonix Inj) 40 mg IVP DAILY [facility] Last Admin: 03/13/17 09:20 Dose: 40 mg Phenobarbital (Phenobarbital Inj) 90 mg IV Q8 [facility] Last Admin: 03/13/17 05:52 Dose: Not Given Potassium Chloride (Potassium Chloride Oral Soln) 20 meq GT ONCE [facility] Last Admin: 03/09/17 13:52 Dose: 20 meq - Labs Labs: 03/13/17 06:20 03/13/17 06:18 PT 13.6 SECONDS (9.7-12.2) H 03/10/17 12:24 INR 1.2 03/10/17 12:24 APTT 32 SECONDS (21-34) 03/10/17 12:24 - Constitutional Appears: No Acute Distress, Chronically Ill (comatose) - Head Exam Head Exam: NORMAL INSPECTION - ENT Exam Additional comments: et tube - Neck Exam Neck Exam: Normal Inspection - Respiratory Exam Respiratory Exam: Decreased Breath Sounds (mechanical vent sounds) - Cardiovascular Exam Cardiovascular Exam: REGULAR RHYTHM, RRR - GI/Abdominal Exam GI & Abdominal Exam: Distended, Soft, Normal Bowel Sounds - Extremities Exam Extremities Exam: Normal Inspection Assessment and Plan (1) Cardiac arrest Status: Acute (2) Open wound of right foot with complication Status: Acute (3) Respiratory failure Status: Acute - Assessment and Plan (Free Text) Assessment: possible hospice care stable renal colon
--- NOTE | 2017-03-13 13:58 | CP.CCUPN ---
<Junie David - Last Filed: 03/13/17 14:57> CCU Subjective - Physician Review Subjective (Free Text): Patient seen and examined at bedside. ROS unobtainable due to patient's current clinical status. Patient is on ventilator support. No changes in mental status. Family meeting to be held today with palliative care to discuss goals of care and code status. CCU Objective - Vital Signs / Intake & Output Vital Signs (Last 4 hours): Vital Signs Temp Pulse Resp BP Pulse Ox 03/13/17 12:00 99 F 104 H 23 123/62 100 03/13/17 11:00 99 H 26 H 113/64 03/13/17 10:00 101 H 26 H 115/66 Intake and Output (Last 8hrs): Intake & Output 03/12/17 03/13/17 03/13/17 22:59 06:59 14:59 Intake Total 640 330 355 Output Total 960 800 330 Balance -320 -470 25 Weight 172 lb Intake: Intake, IV Amount 160 50 Right Antecubital 50 50 Right Hand 110 Tube Feeding 280 280 105 Other 200 250 Output: Urine 960 800 330 Urethral (Gipson) 960 800 330 - Physical Exam Head: Positive for: Atraumatic, Normocephalic Mouth: Positive for: Moist Mucous Membranes Respiratory/Chest: Positive for: Rales Cardiovascular: Positive for: Regular Rate and Rhythm, Normal S1, S2 Abdomen: Negative for: Distention Lower Extremity: Positive for: Other (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 Negative for: Alert, Oriented x 3 - Medications Active Medications: Active Medications Generic Name Dose Route Start Last Admin Trade Name Freq PRN Reason Stop Dose Admin Acetaminophen 650 mg 03/05/17 22:55 03/12/17 00:29 Tylenol 650mg/20.3ml Solution Ud PO 650 mg Q4 PRN Administration temp >101 Albuterol/Ipratropium 3 ml 03/10/17 20:00 03/13/17 13:15 Duoneb 3 Mg/0.5 Mg (3 Ml) Ud INH 3 ml RQ6 TENA Administration Artificial Tears 0 gm 03/06/17 10:04 03/12/17 10:07 Lacri-Lube OS 3.5 gm Q4H PRN Administration Other Calcium Acetate 667 mg 03/08/17 10:00 03/13/17 09:20 Phoslo GT 667 mg TIDCC TENA Administration Collagenase 0 gm 03/10/17 10:00 03/12/17 10:09 Santyl TOP 1 applic DAILY TENA Administration Heparin Sodium (Porcine) 5,000 units 03/12/17 14:00 03/13/17 09:20 Heparin SC 5,000 units Q8 TENA Administration Piperacillin Sod/Tazobactam Sod 2.25 gm in 50 mls @ 100 mls/hr 03/04/17 21:30 03/13/17 09:23 Zosyn 2.25 Gm Iv Premix IVPB 100 mls/hr Q6H TENA Administration Azithromycin 500 mg/ Sodium 250 mls @ 250 mls/hr 03/11/17 10:00 03/13/17 09: 22 Chloride IVPB 250 mls/hr DAILY TENA Administration Insulin Human Regular 0 unit 03/08/17 09:35 03/13/17 05:51 Novolin R SC 6 unit Q6 TENA Administration Protocol Pantoprazole Sodium 40 mg 03/05/17 10:00 03/13/17 09:20 Protonix Inj IVP 40 mg DAILY TENA Administration Phenobarbital 90 mg 03/10/17 06:00 03/13/17 05:52 Phenobarbital Inj IV Not Given Q8 TENA Potassium Chloride 20 meq 03/09/17 13:15 03/09/17 13:52 Potassium Chloride Oral Soln GT 20 meq ONCE TENA Administration - Patient Studies Lab Studies: Lab Studies 03/13/17 03/13/17 03/13/17 Range/Units 12:16 06:20 06:18 WBC 8.4 (4.8-10.8) K/uL RBC 3.51 L (4.40-5.90) Mil/uL Hgb 10.6 L D (12.0-18.0) g/dL Hct 32.2 L (35.0-51.0) % MCV 91.8 (80.0-94.0) fL MCH 30.3 (27.0-31.0) pg MCHC 33.0 (33.0-37.0) g/dL RDW 15.7 H (11.5-14.5) % Plt Count 148 (130-400) K/uL MPV 10.4 (7.2-11.7) fL Neut % (Auto) 74.6 (50.0-75.0) % Lymph % (Auto) 15.7 L (20.0-40.0) % [place] % (Auto) 6.2 (0.0-10.0) % Eos % (Auto) 2.9 (0.0-4.0) % Baso % (Auto) 0.6 (0.0-2.0) % Neut # 6.3 (1.8-7.0) K/uL Lymph # 1.3 (1.0-4.3) K/uL [place]rie # 0.5 (0.0-0.8) K/uL Eos # 0.2 (0.0-0.7) K/uL Baso # 0.1 (0.0-0.2) K/uL Puncture Site pCO2 (35-45) mm/Hg pO2 (80-100) mm/Hg HCO3 (21-28) mmol/L ABG pH (7.35-7.45) ABG Total CO2 (22-28) mmol/L ABG O2 Saturation (95-98) % ABG Base Excess (-2.0-3.0) mmol/L ABG Hemoglobin (11.7-17.4) g/dL ABG Carboxyhemoglobin (0.5-1.5) % POC ABG HHb (Measured) (0.0-5.0) % ABG Methemoglobin (0.0-3.0) % Reji Test A-a O2 Difference mm/Hg Respiratory Index Hgb O2 Saturation (95.0-98.0) % Vent Mode Mechanical Rate FiO2 % Tidal Volume PEEP Sodium 146 (132-148) mmol/L Potassium 3.8 (3.6-5.2) mmol/L Chloride 108 H (98-107) mmol/L Carbon Dioxide 26 (22-30) mmol/L Anion Gap 16 (10-20) BUN 46 H (9-20) mg/dL Creatinine 2.5 H (0.8-1.5) mg/dL Est GFR ( Amer) 33 Est GFR (Non-Af Amer) 27 POC Glucose (mg/dL) 152 H (65-110) mg/dL Random Glucose 247 H (75-110) mg/dL Calcium 7.9 L (8.6-10.4) mg/dl Phosphorus 3.9 (2.5-4.5) mg/dL Magnesium 2.2 (1.6-2.3) mg/dL Total Bilirubin 0.4 (0.2-1.3) mg/dL AST 43 (17-59) U/L ALT 39 (21-72) U/L Alkaline Phosphatase 83 (38-126) U/L Total Protein 7.3 (6.3-8.3) g/dL Albumin 3.1 L (3.5-5.0) g/dL Globulin 4.2 H (2.2-3.9) gm/dL Albumin/Globulin Ratio 0.7 L (1.0-2.1) Serum Immunofixation (Not Detected) 03/13/17 03/13/17 03/12/17 Range/Units 05:33 05:10 23:32 WBC (4.8-10.8) K/uL RBC (4.40-5.90) Mil/uL Hgb (12.0-18.0) g/dL Hct (35.0-51.0) % MCV (80.0-94.0) fL MCH (27.0-31.0) pg MCHC (33.0-37.0) g/dL RDW (11.5-14.5) % Plt Count (130-400) K/uL MPV (7.2-11.7) fL Neut % (Auto) (50.0-75.0) % Lymph % (Auto) (20.0-40.0) % [place] % (Auto) (0.0-10.0) % Eos % (Auto) (0.0-4.0) % Baso % (Auto) (0.0-2.0) % Neut # (1.8-7.0) K/uL Lymph # (1.0-4.3) K/uL Erie # (0.0-0.8) K/uL Eos # (0.0-0.7) K/uL Baso # (0.0-0.2) K/uL Puncture Site Rr pCO2 47 H (35-45) mm/Hg pO2 181 H (80-100) mm/Hg HCO3 28.4 H (21-28) mmol/L ABG pH 7.41 (7.35-7.45) ABG Total CO2 31.2 H (22-28) mmol/L ABG O2 Saturation 99.2 H (95-98) % ABG Base Excess 4.4 H (-2.0-3.0) mmol/L ABG Hemoglobin 11.7 (11.7-17.4) g/dL ABG Carboxyhemoglobin 1.5 (0.5-1.5) % POC ABG HHb (Measured) 0.8 (0.0-5.0) % ABG Methemoglobin 0.6 (0.0-3.0) % Reji Test Pos A-a O2 Difference 117.0 mm/Hg Respiratory Index 0.6 Hgb O2 Saturation 97.0 (95.0-98.0) % Vent Mode Prvc Mechanical Rate 16 FiO2 50.0 % Tidal Volume 450 PEEP 5 Sodium (132-148) mmol/L Potassium (3.6-5.2) mmol/L Chloride (98-107) mmol/L Carbon Dioxide (22-30) mmol/L Anion Gap (10-20) BUN (9-20) mg/dL Creatinine (0.8-1.5) mg/dL Est GFR ( Amer) Est GFR (Non-Af Amer) POC Glucose (mg/dL) 256 H 192 H (65-110) mg/dL Random Glucose (75-110) mg/dL Calcium (8.6-10.4) mg/dl Phosphorus (2.5-4.5) mg/dL Magnesium (1.6-2.3) mg/dL Total Bilirubin (0.2-1.3) mg/dL AST (17-59) U/L ALT (21-72) U/L Alkaline Phosphatase (38-126) U/L Total Protein (6.3-8.3) g/dL Albumin (3.5-5.0) g/dL Globulin (2.2-3.9) gm/dL Albumin/Globulin Ratio (1.0-2.1) Serum Immunofixation (Not Detected) 03/12/17 03/08/17 Range/Units 17:38 08:15 WBC (4.8-10.8) K/uL RBC (4.40-5.90) Mil/uL Hgb (12.0-18.0) g/dL Hct (35.0-51.0) % MCV (80.0-94.0) fL MCH (27.0-31.0) pg MCHC (33.0-37.0) g/dL RDW (11.5-14.5) % Plt Count (130-400) K/uL MPV (7.2-11.7) fL Neut % (Auto) (50.0-75.0) % Lymph % (Auto) (20.0-40.0) % [place] % (Auto) (0.0-10.0) % Eos % (Auto) (0.0-4.0) % Baso % (Auto) (0.0-2.0) % Neut # (1.8-7.0) K/uL Lymph # (1.0-4.3) K/uL Erie # (0.0-0.8) K/uL Eos # (0.0-0.7) K/uL Baso # (0.0-0.2) K/uL Puncture Site pCO2 (35-45) mm/Hg pO2 (80-100) mm/Hg HCO3 (21-28) mmol/L ABG pH (7.35-7.45) ABG Total CO2 (22-28) mmol/L ABG O2 Saturation (95-98) % ABG Base Excess (-2.0-3.0) mmol/L ABG Hemoglobin (11.7-17.4) g/dL ABG Carboxyhemoglobin (0.5-1.5) % POC ABG HHb (Measured) (0.0-5.0) % ABG Methemoglobin (0.0-3.0) % Reji Test A-a O2 Difference mm/Hg Respiratory Index Hgb O2 Saturation (95.0-98.0) % Vent Mode Mechanical Rate FiO2 % Tidal Volume PEEP Sodium (132-148) mmol/L Potassium (3.6-5.2) mmol/L Chloride (98-107) mmol/L Carbon Dioxide (22-30) mmol/L Anion Gap (10-20) BUN (9-20) mg/dL Creatinine (0.8-1.5) mg/dL Est GFR ( Amer) Est GFR (Non-Af Amer) POC Glucose (mg/dL) 202 H (65-110) mg/dL Random Glucose (75-110) mg/dL Calcium (8.6-10.4) mg/dl Phosphorus (2.5-4.5) mg/dL Magnesium (1.6-2.3) mg/dL Total Bilirubin (0.2-1.3) mg/dL AST (17-59) U/L ALT (21-72) U/L Alkaline Phosphatase (38-126) U/L Total Protein (6.3-8.3) g/dL Albumin (3.5-5.0) g/dL Globulin (2.2-3.9) gm/dL Albumin/Globulin Ratio (1.0-2.1) Serum Immunofixation Detected H (Not Detected) Laboratory Results - last 24 hr 03/08/17 03/12/17 03/12/17 08:15 17:38 23:32 WBC RBC Hgb Hct MCV MCH MCHC RDW Plt Count MPV Neut % (Auto) Lymph % (Auto) [place] % (Auto) Eos % (Auto) Baso % (Auto) Neut # Lymph # [place] # Eos # Baso # Puncture Site pCO2 pO2 HCO3 ABG pH ABG Total CO2 ABG O2 Saturation ABG Base Excess ABG Hemoglobin ABG Carboxyhemoglobin POC ABG HHb (Measured) ABG Methemoglobin Reji Test A-a O2 Difference Respiratory Index Hgb O2 Saturation Vent Mode Mechanical Rate FiO2 Tidal Volume PEEP Sodium Potassium Chloride Carbon Dioxide Anion Gap BUN Creatinine Est GFR ( Amer) Est GFR (Non-Af Amer) POC Glucose (mg/dL) 202 H 192 H Random Glucose Calcium Phosphorus Magnesium Total Bilirubin AST ALT Alkaline Phosphatase Total Protein Albumin Globulin Albumin/Globulin Ratio Serum Immunofixation Detected H 03/13/17 03/13/17 03/13/17 05:10 05:33 06:18 WBC RBC Hgb Hct MCV MCH MCHC RDW Plt Count MPV Neut % (Auto) Lymph % (Auto) [place] % (Auto) Eos % (Auto) Baso % (Auto) Neut # Lymph # [place] # Eos # Baso # Puncture Site Rr pCO2 47 H pO2 181 H HCO3 28.4 H ABG pH 7.41 ABG Total CO2 31.2 H ABG O2 Saturation 99.2 H ABG Base Excess 4.4 H ABG Hemoglobin 11.7 ABG Carboxyhemoglobin 1.5 POC ABG HHb (Measured) 0.8 ABG Methemoglobin 0.6 Reji Test Pos A-a O2 Difference 117.0 Respiratory Index 0.6 Hgb O2 Saturation 97.0 Vent Mode Prvc Mechanical Rate 16 FiO2 50.0 Tidal Volume 450 PEEP 5 Sodium 146 Potassium 3.8 Chloride 108 H Carbon Dioxide 26 Anion Gap 16 BUN 46 H Creatinine 2.5 H Est GFR ( Amer) 33 Est GFR (Non-Af Amer) 27 POC Glucose (mg/dL) 256 H Random Glucose 247 H Calcium 7.9 L Phosphorus 3.9 Magnesium 2.2 Total Bilirubin 0.4 AST 43 ALT 39 Alkaline Phosphatase 83 Total Protein 7.3 Albumin 3.1 L Globulin 4.2 H Albumin/Globulin Ratio 0.7 L Serum Immunofixation 03/13/17 03/13/17 06:20 12:16 WBC 8.4 RBC 3.51 L Hgb 10.6 L D Hct 32.2 L MCV 91.8 MCH 30.3 MCHC 33.0 RDW 15.7 H Plt Count 148 MPV 10.4 Neut % (Auto) 74.6 Lymph % (Auto) 15.7 L [place] % (Auto) 6.2 Eos % (Auto) 2.9 Baso % (Auto) 0.6 Neut # 6.3 Lymph # 1.3 Erie # 0.5 Eos # 0.2 Baso # 0.1 Puncture Site pCO2 pO2 HCO3 ABG pH ABG Total CO2 ABG O2 Saturation ABG Base Excess ABG Hemoglobin ABG Carboxyhemoglobin POC ABG HHb (Measured) ABG Methemoglobin Reji Test A-a O2 Difference Respiratory Index Hgb O2 Saturation Vent Mode Mechanical Rate FiO2 Tidal Volume PEEP Sodium Potassium Chloride Carbon Dioxide Anion Gap BUN Creatinine Est GFR ( Amer) Est GFR (Non-Af Amer) POC Glucose (mg/dL) 152 H Random Glucose Calcium Phosphorus Magnesium Total Bilirubin AST ALT Alkaline Phosphatase Total Protein Albumin Globulin Albumin/Globulin Ratio Serum Immunofixation Fingerstick Blood Sugar Results: 256 Review of Systems - Review of Systems Systems not reviewed;Unavailable: Intubated Assessment/Plan - Assessment and Plan (Free Text) Assessment: 52 y/o M with pmhx of HTN, DM II, kidney disease, who was brought to the ED after he collapsed in ED at home and was found in asystole. Patient given 3 doses of epi and CPR for 15 minutes then ROSC. Patient intubated in the field. Patient went into cardiac arrest twice more in the ICU. Plan: Neuro: Intubated, altered mental status (no improvement) Medication and Management: * Ativan 1 mg q2h PRN seizure activity * Keppra 500 mg q12h * Dr. Rascon consulted, help appreciated Imaging: Head CT (03/04): chronic microvascular ischemic changes, no acute intracranial hemorrhage EEG (03/05/17): periodic paroxysmal activities lasting about 2-3 seconds with intermittent burst suppression suggestive of status epileptiform activities. Head CT (03/06/17): nonspecific white matter changes f/u EEG (03/07/17) Pulm: Respiratory distress secondary to cardiac arrest Medication and Management * Patient intubated * Lasix d/c * gipson to measure urine output * Propofol 5mcg/kg/min Imaging: Chest X-ray (03/07/17): Minimal left pleural effusion, CHF improving Cardio: s/p cardiac arrest Medication and management: * Off of pressers * Dr. Tate consulted, help appreciated * Echo (03/04/17): LVEF:42, mild to moderate LV systolic dysfunction. Normal chamber size. Trace MR and TR. Trace pericardial effusion. Pleural effusion. Heme: anemia Medication and management: * 03/13: Hgb 10.6 * 03/12 Hgb 8.6 - continue to monitor and transfuse as needed * 03/06/17: HgB/Hct: 7/20.6, transfused 2 u PRBCs * 03/07/17: HgB/ Hct: 9.6/28.2 Endo: DM II Medication and management: * Regular ISS- increased to high on 03/08 * accucheck q6h * HgA1C: 9.4 Renal: SAUNDRA - table Medication and management: * Lasix d/c on 03/08 * f/u recommendation as per Dr. Charles - monitor lytes * K+ wnl today (hx hyperkalemia) * BUN/CR 46/2.5 MSK: right foot wound secondary to first metatarsal amputation Medication and management: * Wound care - Right foot dressed with Santyl,DSD * Dr. Guzman, podiatry, consulted- help appreciated ID: Medication and management: * Vanco decreased to 500 daily on 03/08 * Zosyn 2.25 grams IVPB [id number] - started 03/04 * Azithromycin 250mg IVPB daily - started 03/11 * MRSA in nose * Urine culture (-) * blood culture (-) * Dr. Shore consulted, help appreciated Prophylaxis: DVT: Heparin 5,000 u sc q8h GI: Protonix 40 mg IVP daily glucerna feeds at 35ml/hr, 100 cc free water flushes q6h Prognosis is very poor. Will have a family meeting today with palliative care to discuss goals of care and code status. <José Miguel Lugo - Last Filed: 03/13/17 17:37> CCU Objective - Vital Signs / Intake & Output Vital Signs (Last 4 hours): Vital Signs Pulse Resp BP 03/13/17 15:00 104 H 17 110/57 L 03/13/17 14:00 103 H 20 117/58 L Intake and Output (Last 8hrs): Intake & Output 03/13/17 03/13/17 03/13/17 06:59 14:59 22:59 Intake Total 330 525 35 Output Total 800 400 150 Balance -470 125 -115 Weight 172 lb Intake: Intake, IV Amount 50 Right Antecubital 50 Tube Feeding 280 175 35 Other 350 Output: Urine 800 400 150 Urethral (Gipson) 800 400 150 - Medications Active Medications: Active Medications Generic Name Dose Route Start Last Admin Trade Name Freq PRN Reason Stop Dose Admin Acetaminophen 650 mg 03/05/17 22:55 03/12/17 00:29 Tylenol 650mg/20.3ml Solution Ud PO 650 mg Q4 PRN Administration temp >101 Albuterol/Ipratropium 3 ml 03/10/17 20:00 03/13/17 13:15 Duoneb 3 Mg/0.5 Mg (3 Ml) Ud INH 3 ml RQ6 TENA Administration Artificial Tears 0 gm 03/06/17 10:04 03/12/17 10:07 Lacri-Lube OS 3.5 gm Q4H PRN Administration Other Calcium Acetate 667 mg 03/08/17 10:00 03/13/17 14:58 Phoslo GT 667 mg TIDCC TENA Administration Collagenase 0 gm 03/10/17 10:00 03/13/17 14:55 Santyl TOP 1 applic DAILY TENA Administration Heparin Sodium (Porcine) 5,000 units 03/12/17 14:00 03/13/17 05:50 Heparin SC 5,000 units Q8 TENA Administration Azithromycin 500 mg/ Sodium 250 mls @ 250 mls/hr 03/11/17 10:00 03/13/17 09: 22 Chloride IVPB 250 mls/hr DAILY TENA Administration Cefepime HCl 2 gm in 100 mls @ 100 mls/hr 03/13/17 18:00 Maxipime Iv 2 Gm Premix IVPB Q12H TENA Insulin Human Regular 0 unit 03/08/17 09:35 03/13/17 13:00 Novolin R SC 2 unit Q6 TENA Administration Protocol Pantoprazole Sodium 40 mg 03/05/17 10:00 03/13/17 09:20 Protonix Inj IVP 40 mg DAILY TENA Administration Phenobarbital 90 mg 03/10/17 06:00 03/13/17 15:16 Phenobarbital Inj IV Not Given Q8 TENA Potassium Chloride 20 meq 03/09/17 13:15 03/09/17 13:52 Potassium Chloride Oral Soln GT 20 meq ONCE TENA Administration - Patient Studies Lab Studies: Lab Studies 03/13/17 03/13/17 03/13/17 Range/Units 12:16 06:20 06:18 WBC 8.4 (4.8-10.8) K/uL RBC 3.51 L (4.40-5.90) Mil/uL Hgb 10.6 L D (12.0-18.0) g/dL Hct 32.2 L (35.0-51.0) % MCV 91.8 (80.0-94.0) fL MCH 30.3 (27.0-31.0) pg MCHC 33.0 (33.0-37.0) g/dL RDW 15.7 H (11.5-14.5) % Plt Count 148 (130-400) K/uL MPV 10.4 (7.2-11.7) fL Neut % (Auto) 74.6 (50.0-75.0) % Lymph % (Auto) 15.7 L (20.0-40.0) % [place] % (Auto) 6.2 (0.0-10.0) % Eos % (Auto) 2.9 (0.0-4.0) % Baso % (Auto) 0.6 (0.0-2.0) % Neut # 6.3 (1.8-7.0) K/uL Lymph # 1.3 (1.0-4.3) K/uL [place] # 0.5 (0.0-0.8) K/uL Eos # 0.2 (0.0-0.7) K/uL Baso # 0.1 (0.0-0.2) K/uL Puncture Site pCO2 (35-45) mm/Hg pO2 (80-100) mm/Hg HCO3 (21-28) mmol/L ABG pH (7.35-7.45) ABG Total CO2 (22-28) mmol/L ABG O2 Saturation (95-98) % ABG Base Excess (-2.0-3.0) mmol/L ABG Hemoglobin (11.7-17.4) g/dL ABG Carboxyhemoglobin (0.5-1.5) % POC ABG HHb (Measured) (0.0-5.0) % ABG Methemoglobin (0.0-3.0) % Reji Test A-a O2 Difference mm/Hg Respiratory Index Hgb O2 Saturation (95.0-98.0) % Vent Mode Mechanical Rate FiO2 % Tidal Volume PEEP Sodium 146 (132-148) mmol/L Potassium 3.8 (3.6-5.2) mmol/L Chloride 108 H (98-107) mmol/L Carbon Dioxide 26 (22-30) mmol/L Anion Gap 16 (10-20) BUN 46 H (9-20) mg/dL Creatinine 2.5 H (0.8-1.5) mg/dL Est GFR ( Amer) 33 Est GFR (Non-Af Amer) 27 POC Glucose (mg/dL) 152 H (65-110) mg/dL Random Glucose 247 H (75-110) mg/dL Calcium 7.9 L (8.6-10.4) mg/dl Phosphorus 3.9 (2.5-4.5) mg/dL Magnesium 2.2 (1.6-2.3) mg/dL Total Bilirubin 0.4 (0.2-1.3) mg/dL AST 43 (17-59) U/L ALT 39 (21-72) U/L Alkaline Phosphatase 83 (38-126) U/L Total Protein 7.3 (6.3-8.3) g/dL Albumin 3.1 L (3.5-5.0) g/dL Globulin 4.2 H (2.2-3.9) gm/dL Albumin/Globulin Ratio 0.7 L (1.0-2.1) 03/13/17 03/13/17 03/12/17 Range/Units 05:33 05:10 23:32 WBC (4.8-10.8) K/uL RBC (4.40-5.90) Mil/uL Hgb (12.0-18.0) g/dL Hct (35.0-51.0) % MCV (80.0-94.0) fL MCH (27.0-31.0) pg MCHC (33.0-37.0) g/dL RDW (11.5-14.5) % Plt Count (130-400) K/uL MPV (7.2-11.7) fL Neut % (Auto) (50.0-75.0) % Lymph % (Auto) (20.0-40.0) % [place] % (Auto) (0.0-10.0) % Eos % (Auto) (0.0-4.0) % Baso % (Auto) (0.0-2.0) % Neut # (1.8-7.0) K/uL Lymph # (1.0-4.3) K/uL [place] # (0.0-0.8) K/uL Eos # (0.0-0.7) K/uL Baso # (0.0-0.2) K/uL Puncture Site Rr pCO2 47 H (35-45) mm/Hg pO2 181 H (80-100) mm/Hg HCO3 28.4 H (21-28) mmol/L ABG pH 7.41 (7.35-7.45) ABG Total CO2 31.2 H (22-28) mmol/L ABG O2 Saturation 99.2 H (95-98) % ABG Base Excess 4.4 H (-2.0-3.0) mmol/L ABG Hemoglobin 11.7 (11.7-17.4) g/dL ABG Carboxyhemoglobin 1.5 (0.5-1.5) % POC ABG HHb (Measured) 0.8 (0.0-5.0) % ABG Methemoglobin 0.6 (0.0-3.0) % Reji Test Pos A-a O2 Difference 117.0 mm/Hg Respiratory Index 0.6 Hgb O2 Saturation 97.0 (95.0-98.0) % Vent Mode Prvc Mechanical Rate 16 FiO2 50.0 % Tidal Volume 450 PEEP 5 Sodium (132-148) mmol/L Potassium (3.6-5.2) mmol/L Chloride (98-107) mmol/L Carbon Dioxide (22-30) mmol/L Anion Gap (10-20) BUN (9-20) mg/dL Creatinine (0.8-1.5) mg/dL Est GFR ( Amer) Est GFR (Non-Af Amer) POC Glucose (mg/dL) 256 H 192 H (65-110) mg/dL Random Glucose (75-110) mg/dL Calcium (8.6-10.4) mg/dl Phosphorus (2.5-4.5) mg/dL Magnesium (1.6-2.3) mg/dL Total Bilirubin (0.2-1.3) mg/dL AST (17-59) U/L ALT (21-72) U/L Alkaline Phosphatase (38-126) U/L Total Protein (6.3-8.3) g/dL Albumin (3.5-5.0) g/dL Globulin (2.2-3.9) gm/dL Albumin/Globulin Ratio (1.0-2.1) 03/12/17 Range/Units 17:38 WBC (4.8-10.8) K/uL RBC (4.40-5.90) Mil/uL Hgb (12.0-18.0) g/dL Hct (35.0-51.0) % MCV (80.0-94.0) fL MCH (27.0-31.0) pg MCHC (33.0-37.0) g/dL RDW (11.5-14.5) % Plt Count (130-400) K/uL MPV (7.2-11.7) fL Neut % (Auto) (50.0-75.0) % Lymph % (Auto) (20.0-40.0) % [place] % (Auto) (0.0-10.0) % Eos % (Auto) (0.0-4.0) % Baso % (Auto) (0.0-2.0) % Neut # (1.8-7.0) K/uL Lymph # (1.0-4.3) K/uL [place] # (0.0-0.8) K/uL Eos # (0.0-0.7) K/uL Baso # (0.0-0.2) K/uL Puncture Site pCO2 (35-45) mm/Hg pO2 (80-100) mm/Hg HCO3 (21-28) mmol/L ABG pH (7.35-7.45) ABG Total CO2 (22-28) mmol/L ABG O2 Saturation (95-98) % ABG Base Excess (-2.0-3.0) mmol/L ABG Hemoglobin (11.7-17.4) g/dL ABG Carboxyhemoglobin (0.5-1.5) % POC ABG HHb (Measured) (0.0-5.0) % ABG Methemoglobin (0.0-3.0) % Reji Test A-a O2 Difference mm/Hg Respiratory Index Hgb O2 Saturation (95.0-98.0) % Vent Mode Mechanical Rate FiO2 % Tidal Volume PEEP Sodium (132-148) mmol/L Potassium (3.6-5.2) mmol/L Chloride (98-107) mmol/L Carbon Dioxide (22-30) mmol/L Anion Gap (10-20) BUN (9-20) mg/dL Creatinine (0.8-1.5) mg/dL Est GFR ( Amer) Est GFR (Non-Af Amer) POC Glucose (mg/dL) 202 H (65-110) mg/dL Random Glucose (75-110) mg/dL Calcium (8.6-10.4) mg/dl Phosphorus (2.5-4.5) mg/dL Magnesium (1.6-2.3) mg/dL Total Bilirubin (0.2-1.3) mg/dL AST (17-59) U/L ALT (21-72) U/L Alkaline Phosphatase (38-126) U/L Total Protein (6.3-8.3) g/dL Albumin (3.5-5.0) g/dL Globulin (2.2-3.9) gm/dL Albumin/Globulin Ratio (1.0-2.1) Laboratory Results - last 24 hr 03/12/17 03/12/17 03/13/17 17:38 23:32 05:10 WBC RBC Hgb Hct MCV MCH MCHC RDW Plt Count MPV Neut % (Auto) Lymph % (Auto) [place] % (Auto) Eos % (Auto) Baso % (Auto) Neut # Lymph # [place] # Eos # Baso # Puncture Site Rr pCO2 47 H pO2 181 H HCO3 28.4 H ABG pH 7.41 ABG Total CO2 31.2 H ABG O2 Saturation 99.2 H ABG Base Excess 4.4 H ABG Hemoglobin 11.7 ABG Carboxyhemoglobin 1.5 POC ABG HHb (Measured) 0.8 ABG Methemoglobin 0.6 Reji Test Pos A-a O2 Difference 117.0 Respiratory Index 0.6 Hgb O2 Saturation 97.0 Vent Mode Prvc Mechanical Rate 16 FiO2 50.0 Tidal Volume 450 PEEP 5 Sodium Potassium Chloride Carbon Dioxide Anion Gap BUN Creatinine Est GFR ( Amer) Est GFR (Non-Af Amer) POC Glucose (mg/dL) 202 H 192 H Random Glucose Calcium Phosphorus Magnesium Total Bilirubin AST ALT Alkaline Phosphatase Total Protein Albumin Globulin Albumin/Globulin Ratio 03/13/17 03/13/17 03/13/17 05:33 06:18 06:20 WBC 8.4 RBC 3.51 L Hgb 10.6 L D Hct 32.2 L MCV 91.8 MCH 30.3 MCHC 33.0 RDW 15.7 H Plt Count 148 MPV 10.4 Neut % (Auto) 74.6 Lymph % (Auto) 15.7 L [place] % (Auto) 6.2 Eos % (Auto) 2.9 Baso % (Auto) 0.6 Neut # 6.3 Lymph # 1.3 [place] # 0.5 Eos # 0.2 Baso # 0.1 Puncture Site pCO2 pO2 HCO3 ABG pH ABG Total CO2 ABG O2 Saturation ABG Base Excess ABG Hemoglobin ABG Carboxyhemoglobin POC ABG HHb (Measured) ABG Methemoglobin Reji Test A-a O2 Difference Respiratory Index Hgb O2 Saturation Vent Mode Mechanical Rate FiO2 Tidal Volume PEEP Sodium 146 Potassium 3.8 Chloride 108 H Carbon Dioxide 26 Anion Gap 16 BUN 46 H Creatinine 2.5 H Est GFR ( Amer) 33 Est GFR (Non-Af Amer) 27 POC Glucose (mg/dL) 256 H Random Glucose 247 H Calcium 7.9 L Phosphorus 3.9 Magnesium 2.2 Total Bilirubin 0.4 AST 43 ALT 39 Alkaline Phosphatase 83 Total Protein 7.3 Albumin 3.1 L Globulin 4.2 H Albumin/Globulin Ratio 0.7 L 03/13/17 12:16 WBC RBC Hgb Hct MCV MCH MCHC RDW Plt Count MPV Neut % (Auto) Lymph % (Auto) [place] % (Auto) Eos % (Auto) Baso % (Auto) Neut # Lymph # [place] # Eos # Baso # Puncture Site pCO2 pO2 HCO3 ABG pH ABG Total CO2 ABG O2 Saturation ABG Base Excess ABG Hemoglobin ABG Carboxyhemoglobin POC ABG HHb (Measured) ABG Methemoglobin Reji Test A-a O2 Difference Respiratory Index Hgb O2 Saturation Vent Mode Mechanical Rate FiO2 Tidal Volume PEEP Sodium Potassium Chloride Carbon Dioxide Anion Gap BUN Creatinine Est GFR ( Amer) Est GFR (Non-Af Amer) POC Glucose (mg/dL) 152 H Random Glucose Calcium Phosphorus Magnesium Total Bilirubin AST ALT Alkaline Phosphatase Total Protein Albumin Globulin Albumin/Globulin Ratio Attending/Attestation - Attestation I have personally seen and examined this patient.: Yes I have fully participated in the care of the patient.: Yes I have reviewed all pertinent clinical information: Yes Notes (Text): 03/13/17 17:36 Patient seen and examined in the intensive care unit. Case discussed with house staff in the morning Case discussed with family at length No change in mental status CAT scan of the head noted with cerebral edema Seen by neurology with poor prognosis
[2017-03-13] MEDS: Collagenase 250 Units/gm Ointment(30 gm) TOP SCH (14:55)
--- NOTE | 2017-03-13 15:04 | CP.PCM.PN ---
Subjective - Date & Time of Evaluation Date of Evaluation: 03/13/17 Time of Evaluation: 14:50 - Subjective Subjective: palliative progress note Patient is intubated and restless indicating discomfort from the ETT Objective - Vital Signs/Intake and Output Vital Signs (last 24 hours): Temp Pulse Resp BP Pulse Ox 99 F 104 H 23 123/62 100 03/13/17 12:00 03/13/17 12:00 03/13/17 12:00 03/13/17 12:00 03/13/17 12:00 Intake and Output: 03/13/17 03/13/17 06:59 18:59 Intake Total 520 355 Output Total 1200 330 Balance -680 25 - Medications Medications: Current Medications Acetaminophen (Tylenol 650mg/20.3ml Solution Ud) 650 mg PO Q4 PRN PRN Reason: temp >101 Last Admin: 03/12/17 00:29 Dose: 650 mg Albuterol/Ipratropium (Duoneb 3 Mg/0.5 Mg (3 Ml) Ud) 3 ml INH RQ6 [facility] Last Admin: 03/13/17 13:15 Dose: 3 ml Artificial Tears (Lacri-Lube) 0 gm OS Q4H PRN PRN Reason: Other Last Admin: 03/12/17 10:07 Dose: 3.5 gm Calcium Acetate (Phoslo) 667 mg GT TIDCC [facility] Last Admin: 03/13/17 09:20 Dose: 667 mg Collagenase (Santyl) 0 gm TOP DAILY [facility] Last Admin: 03/12/17 10:09 Dose: 1 applic Heparin Sodium (Porcine) (Heparin) 5,000 units SC Q8 [facility] Last Admin: 03/13/17 09:20 Dose: 5,000 units Piperacillin Sod/Tazobactam Sod (Zosyn 2.25 Gm Iv Premix) 2.25 gm in 50 mls @ 100 mls/hr IVPB Q6H [facility] Last Admin: 03/13/17 09:23 Dose: 100 mls/hr Azithromycin 500 mg/ Sodium (Chloride) 250 mls @ 250 mls/hr IVPB DAILY [facility] Last Admin: 03/13/17 09:22 Dose: 250 mls/hr Insulin Human Regular (Novolin R) 0 unit SC Q6 [facility] PRN Reason: Protocol Last Admin: 03/13/17 05:51 Dose: 6 unit Pantoprazole Sodium (Protonix Inj) 40 mg IVP DAILY [facility] Last Admin: 03/13/17 09:20 Dose: 40 mg Phenobarbital (Phenobarbital Inj) 90 mg IV Q8 [facility] Last Admin: 03/13/17 05:52 Dose: Not Given Potassium Chloride (Potassium Chloride Oral Soln) 20 meq GT ONCE [facility] Last Admin: 03/09/17 13:52 Dose: 20 meq - Labs Labs: 03/13/17 06:20 03/13/17 06:18 PT 13.6 SECONDS (9.7-12.2) H 03/10/17 12:24 INR 1.2 03/10/17 12:24 APTT 32 SECONDS (21-34) 03/10/17 12:24 - Constitutional Appears: Chronically Ill - Head Exam Head Exam: ATRAUMATIC, NORMAL INSPECTION, NORMOCEPHALIC - Eye Exam Eye Exam: Normal appearance, PERRL Pupil Exam: NORMAL ACCOMODATION - ENT Exam ENT Exam: Mucous Membranes Dry Additional comments: ETT - Neck Exam Neck Exam: Normal Inspection - Respiratory Exam Additional comments: On MV - Cardiovascular Exam Cardiovascular Exam: REGULAR RHYTHM - GI/Abdominal Exam GI & Abdominal Exam: Hypoactive Bowel Sounds - Rectal Exam Rectal Exam: Deferred - Back Exam Back Exam: NORMAL INSPECTION - Neurological Exam Neurological Exam: Alert, Oriented x3 Neuro motor strength exam: Left Upper Extremity: 2/1, Right Upper Extremity: 2/1 , Left Lower Extremity: 2/1, Right Lower Extremity: 2/1 - Psychiatric Exam Psychiatric exam: Agitated - Skin Skin Exam: Normal Color Additional comments: Pressure sore Assessment and Plan - Assessment and Plan (Free Text) Assessment: Patient is alert, tends to fallow commends, makes eyes contact. Family spoke to Doctor Melvin as per daughter and HD was recommended and accepted by the family. I spoke to daughter Bridget over the phone and discussed goals of care. She stated being well informed with her father's condition and her and her brother are looking forward full care being applied to support patient's life. The plan is to remove patient from MV once her gets stable. Family signed the consent for HD. Impression * This is a very unfortunate patient who has been suffering for long time * Despite all reasonable medical interventions patient's condition has declined * Family is strongly advocating for Full Code * Patient was not able to be weaned off the MV today * HD recommended by the Doctor Melvin Suggestion * Apply all measures including HD and CPR if it should be needed to support life * Family needs a lot of support during this, very difficult time
--- NOTE | 2017-03-13 15:17 | CP.PCM.PN ---
Subjective - Date & Time of Evaluation Date of Evaluation: 03/13/17 Time of Evaluation: 12:00 - Subjective Subjective: clinically same Objective - Vital Signs/Intake and Output Vital Signs (last 24 hours): Temp Pulse Resp BP Pulse Ox 99 F 104 H 17 110/57 L 100 03/13/17 12:00 03/13/17 15:00 03/13/17 15:00 03/13/17 15:00 03/13/17 12:00 Intake and Output: 03/13/17 03/13/17 06:59 18:59 Intake Total 520 560 Output Total 1200 550 Balance -680 10 - Medications Medications: Current Medications Acetaminophen (Tylenol 650mg/20.3ml Solution Ud) 650 mg PO Q4 PRN PRN Reason: temp >101 Last Admin: 03/12/17 00:29 Dose: 650 mg Albuterol/Ipratropium (Duoneb 3 Mg/0.5 Mg (3 Ml) Ud) 3 ml INH RQ6 [facility] Last Admin: 03/13/17 13:15 Dose: 3 ml Artificial Tears (Lacri-Lube) 0 gm OS Q4H PRN PRN Reason: Other Last Admin: 03/12/17 10:07 Dose: 3.5 gm Calcium Acetate (Phoslo) 667 mg GT TIDCC [facility] Last Admin: 03/13/17 14:58 Dose: 667 mg Collagenase (Santyl) 0 gm TOP DAILY [facility] Last Admin: 03/13/17 14:55 Dose: 1 applic Heparin Sodium (Porcine) (Heparin) 5,000 units SC Q8 [facility] Last Admin: 03/13/17 14:53 Dose: 5,000 units Piperacillin Sod/Tazobactam Sod (Zosyn 2.25 Gm Iv Premix) 2.25 gm in 50 mls @ 100 mls/hr IVPB Q6H [facility] Last Admin: 03/13/17 14:54 Dose: 100 mls/hr Azithromycin 500 mg/ Sodium (Chloride) 250 mls @ 250 mls/hr IVPB DAILY [facility] Last Admin: 03/13/17 09:22 Dose: 250 mls/hr Insulin Human Regular (Novolin R) 0 unit SC Q6 [facility] PRN Reason: Protocol Last Admin: 03/13/17 13:00 Dose: 2 unit Pantoprazole Sodium (Protonix Inj) 40 mg IVP DAILY [facility] Last Admin: 03/13/17 09:20 Dose: 40 mg Phenobarbital (Phenobarbital Inj) 90 mg IV Q8 [facility] Last Admin: 03/13/17 15:16 Dose: Not Given Potassium Chloride (Potassium Chloride Oral Soln) 20 meq GT ONCE [facility] Last Admin: 03/09/17 13:52 Dose: 20 meq - Labs Labs: 03/13/17 06:20 03/13/17 06:18 PT 13.6 SECONDS (9.7-12.2) H 03/10/17 12:24 INR 1.2 03/10/17 12:24 APTT 32 SECONDS (21-34) 03/10/17 12:24 - Constitutional Appears: Well - Head Exam Head Exam: ATRAUMATIC, NORMAL INSPECTION, NORMOCEPHALIC - Eye Exam Eye Exam: EOMI, Normal appearance, PERRL Pupil Exam: NORMAL ACCOMODATION, PERRL - ENT Exam ENT Exam: Mucous Membranes Moist, Normal Exam - Neck Exam Neck Exam: Full ROM, Normal Inspection. absent: Lymphadenopathy - Respiratory Exam Respiratory Exam: Decreased Breath Sounds - Cardiovascular Exam Cardiovascular Exam: REGULAR RHYTHM, +S1, +S2 - GI/Abdominal Exam GI & Abdominal Exam: Soft, Diminished Bowel Sounds - Rectal Exam Rectal Exam: Deferred Assessment and Plan (1) Anemia Status: Acute (2) Anoxic encephalopathy Status: Acute (3) Anoxic encephalopathy Status: Acute (4) CHF (congestive heart failure) Status: Acute (5) Cardiac arrest Status: Acute (6) Coagulopathy Status: Acute (7) Open wound of right foot with complication Status: Acute (8) Respiratory failure Status: Acute (9) SAUNDRA (acute kidney injury) Status: Resolved - Assessment and Plan (Free Text) Plan: Patient examined. Patient unresponsive on ventilator. Continue piperacillin tazobactam, azithromycin, supportive care.
--- NOTE | 2017-03-13 15:38 | CP.PCM.PN ---
Subjective - Date & Time of Evaluation Date of Evaluation: 03/13/17 Time of Evaluation: 15:35 - Subjective Subjective: Patient remains unresponsive on MV support. Objective - Vital Signs/Intake and Output Vital Signs (last 24 hours): Temp Pulse Resp BP Pulse Ox 99 F 104 H 17 110/57 L 100 03/13/17 12:00 03/13/17 15:00 03/13/17 15:00 03/13/17 15:00 03/13/17 12:00 Intake and Output: 03/13/17 03/13/17 06:59 18:59 Intake Total 520 560 Output Total 1200 550 Balance -680 10 - Medications Medications: Current Medications Acetaminophen (Tylenol 650mg/20.3ml Solution Ud) 650 mg PO Q4 PRN PRN Reason: temp >101 Last Admin: 03/12/17 00:29 Dose: 650 mg Albuterol/Ipratropium (Duoneb 3 Mg/0.5 Mg (3 Ml) Ud) 3 ml INH RQ6 [facility] Last Admin: 03/13/17 13:15 Dose: 3 ml Artificial Tears (Lacri-Lube) 0 gm OS Q4H PRN PRN Reason: Other Last Admin: 03/12/17 10:07 Dose: 3.5 gm Calcium Acetate (Phoslo) 667 mg GT TIDCC [facility] Last Admin: 03/13/17 14:58 Dose: 667 mg Collagenase (Santyl) 0 gm TOP DAILY [facility] Last Admin: 03/13/17 14:55 Dose: 1 applic Heparin Sodium (Porcine) (Heparin) 5,000 units SC Q8 [facility] Last Admin: 03/13/17 14:53 Dose: 5,000 units Piperacillin Sod/Tazobactam Sod (Zosyn 2.25 Gm Iv Premix) 2.25 gm in 50 mls @ 100 mls/hr IVPB Q6H [facility] Last Admin: 03/13/17 14:54 Dose: 100 mls/hr Azithromycin 500 mg/ Sodium (Chloride) 250 mls @ 250 mls/hr IVPB DAILY [facility] Last Admin: 03/13/17 09:22 Dose: 250 mls/hr Insulin Human Regular (Novolin R) 0 unit SC Q6 [facility] PRN Reason: Protocol Last Admin: 03/13/17 13:00 Dose: 2 unit Pantoprazole Sodium (Protonix Inj) 40 mg IVP DAILY [facility] Last Admin: 03/13/17 09:20 Dose: 40 mg Phenobarbital (Phenobarbital Inj) 90 mg IV Q8 [facility] Last Admin: 03/13/17 15:16 Dose: Not Given Potassium Chloride (Potassium Chloride Oral Soln) 20 meq GT ONCE [facility] Last Admin: 03/09/17 13:52 Dose: 20 meq - Labs Labs: 03/13/17 06:20 03/13/17 06:18 PT 13.6 SECONDS (9.7-12.2) H 03/10/17 12:24 INR 1.2 03/10/17 12:24 APTT 32 SECONDS (21-34) 03/10/17 12:24 - Constitutional Appears: In Acute Distress - Head Exam Head Exam: ATRAUMATIC, NORMAL INSPECTION, NORMOCEPHALIC - Eye Exam Eye Exam: Normal appearance Pupil Exam: Irregular - ENT Exam ENT Exam: Mucous Membranes Dry Additional comments: ETT - Neck Exam Neck Exam: Normal Inspection - Respiratory Exam Additional comments: On Mv support - Cardiovascular Exam Cardiovascular Exam: Tachycardia - GI/Abdominal Exam GI & Abdominal Exam: Diminished Bowel Sounds - Rectal Exam Rectal Exam: Deferred - Extremities Exam Extremities Exam: Normal Capillary Refill, Normal Inspection, Pedal Edema - Back Exam Back Exam: NORMAL INSPECTION - Neurological Exam Neurological Exam: Motor Sensory Deficit Neuro motor strength exam: Left Upper Extremity: 0, Right Upper Extremity: 0, Left Lower Extremity: 0, Right Lower Extremity: 0 - Psychiatric Exam Psychiatric exam: Flat Affect - Skin Skin Exam: Dry, Intact, Normal Color Assessment and Plan - Assessment and Plan (Free Text) Assessment: Patient remains intubated on MV support, unresponsive to stimuli with positive corneal reflexes but absent gag reflex. Patient's condition discussed with Doctor Lugo. Condition seen as very complex and with poor prognosis. Family meeting held by Doctor Lugo in presence of patient's two daughter and son in law and I joined it as well. Family was presented with patient's clinical presentation and poor outcome presented. Code status discussed and promotion of natural . One of the daughters, who is the oldest and works as a nurse is advocating for comfort measures only and allowing natural . The younger daughter who came from [place] to visit, has a very difficult time deciding. I reinforced quality of life concerns and asked family to think of what is the best for the patient first,and separate their own feelings of sorrow . I also acknowledged the difficulties and complexity of decision making process. Family asked for time and alone and to return later on for the final decision. We supported it. Impression * Patient remains unresponsive and on full life support * Family is in state of crisis what makes decision making very difficult, especially the younger daughter * patient's wishes for the end of life care are not known Suggestion * I will fallow up with the family and continue assisting them trough this very difficult time * Family will need a lot more support before any decision is made as they are just no ready to give up
[2017-03-13 17:44] LABS: RBC URINE 4 /hpf (0-3); URINE BACTERIA RARE (<OCC); URINE BILIRUBIN NEGATIVE (NEGATIVE); URINE BLOOD 1+ (NEGATIVE); URINE COLOR Straw (YELLOW); URINE GLUCOSE (UA) NORMAL (Normal); URINE KETONE NEGATIVE (NEGATIVE); URINE LEUKOCYTE ESTERASE NEG Leu/uL (Negative); URINE PROTEIN NEGATIVE (NEGATIVE); URINE UROBILINOGEN NORMAL mg/dL (0.2-1.0); WBC URINE 2 /hpf (0-5)
[2017-03-13] MEDS: Cefepime IV 2 gm in Dextrose 2 GM/100 ML BAG IVPB SCH (18:15)
--- NOTE | 2017-03-13 19:52 | CP.PCM.PN ---
Subjective - Date & Time of Evaluation Date of Evaluation: 03/10/17 Time of Evaluation: 17:00 - Subjective Subjective: Vented, unresponsive Objective - Vital Signs/Intake and Output Vital Signs (last 24 hours): Temp Pulse Resp BP Pulse Ox 102 F H 94 H 19 93/48 L 99 03/13/17 16:00 03/13/17 19:00 03/13/17 19:00 03/13/17 19:00 03/13/17 16:00 Intake and Output: 03/13/17 03/14/17 18:59 06:59 Intake Total 790 35 Output Total 550 Balance 240 35 - Medications Medications: Current Medications Acetaminophen (Tylenol 650mg/20.3ml Solution Ud) 650 mg PO Q4 PRN PRN Reason: temp >101 Last Admin: 03/12/17 00:29 Dose: 650 mg Albuterol/Ipratropium (Duoneb 3 Mg/0.5 Mg (3 Ml) Ud) 3 ml INH RQ6 [facility] Last Admin: 03/13/17 19:44 Dose: 3 ml Artificial Tears (Lacri-Lube) 0 gm OS Q4H PRN PRN Reason: Other Last Admin: 03/12/17 10:07 Dose: 3.5 gm Calcium Acetate (Phoslo) 667 mg GT TIDCC [facility] Last Admin: 03/13/17 18:47 Dose: Not Given Collagenase (Santyl) 0 gm TOP DAILY [facility] Last Admin: 03/13/17 14:55 Dose: 1 applic Heparin Sodium (Porcine) (Heparin) 5,000 units SC Q8 [facility] Last Admin: 03/13/17 14:00 Dose: 5,000 units Azithromycin 500 mg/ Sodium (Chloride) 250 mls @ 250 mls/hr IVPB DAILY [facility] Last Admin: 03/13/17 09:22 Dose: 250 mls/hr Cefepime HCl (Maxipime Iv 2 Gm Premix) 2 gm in 100 mls @ 100 mls/hr IVPB Q12H [facility] Last Admin: 03/13/17 18:15 Dose: 100 mls/hr Insulin Human Regular (Novolin R) 0 unit SC Q6 [facility] PRN Reason: Protocol Last Admin: 03/13/17 13:00 Dose: 2 unit Pantoprazole Sodium (Protonix Inj) 40 mg IVP DAILY [facility] Last Admin: 03/13/17 09:20 Dose: 40 mg Phenobarbital (Phenobarbital Inj) 90 mg IV Q8 [facility] Last Admin: 03/13/17 15:16 Dose: Not Given Potassium Chloride (Potassium Chloride Oral Soln) 20 meq GT ONCE [facility] Last Admin: 03/09/17 13:52 Dose: 20 meq - Labs Labs: 03/13/17 06:20 03/13/17 06:18 PT 13.6 SECONDS (9.7-12.2) H 03/10/17 12:24 INR 1.2 03/10/17 12:24 APTT 32 SECONDS (21-34) 03/10/17 12:24 - Head Exam Head Exam: ATRAUMATIC - Eye Exam Eye Exam: Normal appearance - ENT Exam ENT Exam: Mucous Membranes Dry - Respiratory Exam Respiratory Exam: Decreased Breath Sounds - Cardiovascular Exam Cardiovascular Exam: +S1, +S2 - GI/Abdominal Exam GI & Abdominal Exam: Normal Bowel Sounds Assessment and Plan (1) Anemia Assessment & Plan: chronic disease transfusion support PRN Status: Acute (2) Coagulopathy Assessment & Plan: nutritional no current DIC Status: Acute
--- NOTE | 2017-03-13 19:53 | CP.PCM.PN ---
Subjective - Date & Time of Evaluation Date of Evaluation: 03/12/17 Time of Evaluation: 18:00 - Subjective Subjective: Vented Objective - Vital Signs/Intake and Output Vital Signs (last 24 hours): Temp Pulse Resp BP Pulse Ox 102 F H 94 H 19 93/48 L 99 03/13/17 16:00 03/13/17 19:00 03/13/17 19:00 03/13/17 19:00 03/13/17 16:00 Intake and Output: 03/13/17 03/14/17 18:59 06:59 Intake Total 790 35 Output Total 550 Balance 240 35 - Medications Medications: Current Medications Acetaminophen (Tylenol 650mg/20.3ml Solution Ud) 650 mg PO Q4 PRN PRN Reason: temp >101 Last Admin: 03/12/17 00:29 Dose: 650 mg Albuterol/Ipratropium (Duoneb 3 Mg/0.5 Mg (3 Ml) Ud) 3 ml INH RQ6 [facility] Last Admin: 03/13/17 19:44 Dose: 3 ml Artificial Tears (Lacri-Lube) 0 gm OS Q4H PRN PRN Reason: Other Last Admin: 03/12/17 10:07 Dose: 3.5 gm Calcium Acetate (Phoslo) 667 mg GT TIDCC [facility] Last Admin: 03/13/17 18:47 Dose: Not Given Collagenase (Santyl) 0 gm TOP DAILY [facility] Last Admin: 03/13/17 14:55 Dose: 1 applic Heparin Sodium (Porcine) (Heparin) 5,000 units SC Q8 [facility] Last Admin: 03/13/17 14:00 Dose: 5,000 units Azithromycin 500 mg/ Sodium (Chloride) 250 mls @ 250 mls/hr IVPB DAILY [facility] Last Admin: 03/13/17 09:22 Dose: 250 mls/hr Cefepime HCl (Maxipime Iv 2 Gm Premix) 2 gm in 100 mls @ 100 mls/hr IVPB Q12H [facility] Last Admin: 03/13/17 18:15 Dose: 100 mls/hr Insulin Human Regular (Novolin R) 0 unit SC Q6 [facility] PRN Reason: Protocol Last Admin: 03/13/17 13:00 Dose: 2 unit Pantoprazole Sodium (Protonix Inj) 40 mg IVP DAILY [facility] Last Admin: 03/13/17 09:20 Dose: 40 mg Phenobarbital (Phenobarbital Inj) 90 mg IV Q8 [facility] Last Admin: 03/13/17 15:16 Dose: Not Given Potassium Chloride (Potassium Chloride Oral Soln) 20 meq GT ONCE [facility] Last Admin: 03/09/17 13:52 Dose: 20 meq - Labs Labs: 03/13/17 06:20 03/13/17 06:18 PT 13.6 SECONDS (9.7-12.2) H 03/10/17 12:24 INR 1.2 03/10/17 12:24 APTT 32 SECONDS (21-34) 03/10/17 12:24 - Head Exam Head Exam: ATRAUMATIC - Eye Exam Eye Exam: Normal appearance - ENT Exam ENT Exam: Mucous Membranes Dry - Respiratory Exam Respiratory Exam: Decreased Breath Sounds - Cardiovascular Exam Cardiovascular Exam: +S1, +S2 Assessment and Plan (1) Anemia Assessment & Plan: chronic disease monoclonal protein detected Status: Acute (2) Coagulopathy Assessment & Plan: nutritional no current DIC Status: Acute
--- NOTE | 2017-03-13 19:55 | CP.PCM.PN ---
Subjective - Date & Time of Evaluation Date of Evaluation: 03/13/17 Time of Evaluation: 19:00 - Subjective Subjective: Vented Objective - Vital Signs/Intake and Output Vital Signs (last 24 hours): Temp Pulse Resp BP Pulse Ox 102 F H 94 H 19 93/48 L 99 03/13/17 16:00 03/13/17 19:00 03/13/17 19:00 03/13/17 19:00 03/13/17 16:00 Intake and Output: 03/13/17 03/14/17 18:59 06:59 Intake Total 790 35 Output Total 550 Balance 240 35 - Medications Medications: Current Medications Acetaminophen (Tylenol 650mg/20.3ml Solution Ud) 650 mg PO Q4 PRN PRN Reason: temp >101 Last Admin: 03/12/17 00:29 Dose: 650 mg Albuterol/Ipratropium (Duoneb 3 Mg/0.5 Mg (3 Ml) Ud) 3 ml INH RQ6 [facility] Last Admin: 03/13/17 19:44 Dose: 3 ml Artificial Tears (Lacri-Lube) 0 gm OS Q4H PRN PRN Reason: Other Last Admin: 03/12/17 10:07 Dose: 3.5 gm Calcium Acetate (Phoslo) 667 mg GT TIDCC [facility] Last Admin: 03/13/17 18:47 Dose: Not Given Collagenase (Santyl) 0 gm TOP DAILY [facility] Last Admin: 03/13/17 14:55 Dose: 1 applic Heparin Sodium (Porcine) (Heparin) 5,000 units SC Q8 [facility] Last Admin: 03/13/17 14:00 Dose: 5,000 units Azithromycin 500 mg/ Sodium (Chloride) 250 mls @ 250 mls/hr IVPB DAILY [facility] Last Admin: 03/13/17 09:22 Dose: 250 mls/hr Cefepime HCl (Maxipime Iv 2 Gm Premix) 2 gm in 100 mls @ 100 mls/hr IVPB Q12H [facility] Last Admin: 03/13/17 18:15 Dose: 100 mls/hr Insulin Human Regular (Novolin R) 0 unit SC Q6 [facility] PRN Reason: Protocol Last Admin: 03/13/17 13:00 Dose: 2 unit Pantoprazole Sodium (Protonix Inj) 40 mg IVP DAILY [facility] Last Admin: 03/13/17 09:20 Dose: 40 mg Phenobarbital (Phenobarbital Inj) 90 mg IV Q8 [facility] Last Admin: 03/13/17 15:16 Dose: Not Given Potassium Chloride (Potassium Chloride Oral Soln) 20 meq GT ONCE [facility] Last Admin: 03/09/17 13:52 Dose: 20 meq - Labs Labs: 03/13/17 06:20 03/13/17 06:18 PT 13.6 SECONDS (9.7-12.2) H 03/10/17 12:24 INR 1.2 03/10/17 12:24 APTT 32 SECONDS (21-34) 03/10/17 12:24 - Head Exam Head Exam: ATRAUMATIC - Eye Exam Eye Exam: Normal appearance - ENT Exam ENT Exam: Mucous Membranes Dry - Respiratory Exam Respiratory Exam: NORMAL BREATHING PATTERN - Cardiovascular Exam Cardiovascular Exam: +S1, +S2 - GI/Abdominal Exam GI & Abdominal Exam: Normal Bowel Sounds Assessment and Plan (1) Anemia Assessment & Plan: chronic disease monoclonal protein detected Status: Acute (2) Coagulopathy Assessment & Plan: nutritional Status: Acute
[2017-03-13] MEDS: Acetaminophen 650mg/20.3ml solution UD PO PRN (21:14)
[2017-03-14] MEDS: (Novolin R) Insulin Human Regular 100 units/ml vial SC SCH ×4 (00:59→17:36)
[2017-03-14] MEDS: Albuterol-Ipratrop 3 mg / 0.5 (3 ml) UD INH SCH ×4 (01:26→19:34)
[2017-03-14 05:39] LABS: ABG MECHANICAL RATE 16; ARTERIAL BLOOD GAS MODE PRVC; ARTERIAL BLOOD HGB O2 SAT 95.4 % (95.0-98.0); ATERIAL BLOOD GAS PEEP 5; CARBOXYHEMOGLOBIN 1.6 % (0.5-1.5); DRAW SITE LB; HHB 1.7 % (0.0-5.0); METHEMOGLOBIN 1.3 % (0.0-3.0)
[2017-03-14] MEDS: Cefepime IV 2 gm in Dextrose 2 GM/100 ML BAG IVPB SCH ×2 (06:18→17:26)
[2017-03-14 06:37] LABS: BASO % 0.4 % (0.0-2.0); EOS # 0.2 K/uL (0.0-0.7); LYMPH # 1.1 K/uL (1.0-4.3); LYMPH % 9.2 % (20.0-40.0); MEAN CELL VOLUME 90.8 fL (80.0-94.0); MEAN CORPUSCULAR HEMOGLOBIN 29.1 pg (27.0-31.0); MEAN CORPUSCULAR HGB CONC 32.1 g/dL (33.0-37.0); MEAN PLATELET VOLUME 10.6 fL (7.2-11.7); MONO # 0.6 K/uL (0.0-0.8); MONO % 4.8 % (0.0-10.0); PLATELET COUNT 186 K/uL (130-400); RED CELL DISTRIBUTION WIDTH 15.8 % (11.5-14.5); WHITE BLOOD COUNT 11.9 K/uL (4.8-10.8)
[2017-03-14 07:02] LABS: ALB/GLOB RATIO 0.8 (1.0-2.1); BILIRUBIN,TOTAL 0.4 mg/dL (0.2-1.3); TOTAL PROTEIN 7.6 g/dL (6.3-8.3)
[2017-03-14 07:03] LABS: CALCIUM 8.4 mg/dl (8.6-10.4); MAGNESIUM 2.2 mg/dL (1.6-2.3); PHOSPHOROUS 4.6 mg/dL (2.5-4.5)
[2017-03-14 08:55] LABS: NEUTROPHIL 87 % (50-75); TOTAL CELLS COUNTED 100
--- NOTE | 2017-03-14 09:10 | RAD ---
HISTORY: on vent suport COMPARISON: 03/13/2017 FINDINGS: LUNGS: Increasing right basilar opacity concerning for pneumonia. No significant opacity seen elsewhere. PLEURA: No significant pleural effusion identified, no pneumothorax apparent. CARDIOVASCULAR: Normal heart size. ET tube and NG tube are unchanged. OSSEOUS STRUCTURES: No significant abnormalities. VISUALIZED UPPER ABDOMEN: Normal. OTHER FINDINGS: None. IMPRESSION: Increasing right basilar opacity concerning for pneumonia. Followup advised. Lines and tubes unchanged.
[2017-03-14] MEDS: Collagenase 250 Units/gm Ointment(30 gm) TOP SCH (10:25)
[2017-03-14] MEDS: Azithromycin 500 MG in Sodium Chloride 0.9% 250 ML IVPB SCH (10:26)
--- NOTE | 2017-03-14 11:13 | CP.PCM.PCO ---
Physician Communication Note - Physician Communication Note Physician Communication Note: Voice mail left to daughter Ceci, no decision yet
--- NOTE | 2017-03-14 11:38 | CP.PCM.PN ---
Subjective - Date & Time of Evaluation Date of Evaluation: 03/14/17 Time of Evaluation: 11:35 - Subjective Subjective: podiatry progress note for Dr. 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 Patient unable to communicate. Patient's friends at bedside. Dressing to right foot appears clean dry and intact. Multipodus offloading boots intact to bilateral lower extremities. Objective - Vital Signs/Intake and Output Vital Signs (last 24 hours): Temp Pulse Resp BP Pulse Ox 98.7 F 101 H 17 111/64 100 03/14/17 11:23 03/14/17 11:00 03/14/17 11:00 03/14/17 11:00 03/14/17 10:00 Intake and Output: 03/14/17 03/14/17 06:59 18:59 Intake Total 720 425 Output Total 920 295 Balance -200 130 - Medications Medications: Current Medications Acetaminophen (Tylenol 650mg/20.3ml Solution Ud) 650 mg PO Q4 PRN PRN Reason: temp >101 Last Admin: 03/13/17 21:14 Dose: 650 mg Albuterol/Ipratropium (Duoneb 3 Mg/0.5 Mg (3 Ml) Ud) 3 ml INH RQ6 [facility] Last Admin: 03/14/17 07:15 Dose: 3 ml Artificial Tears (Lacri-Lube) 0 gm OS Q4H PRN PRN Reason: Other Last Admin: 03/12/17 10:07 Dose: 3.5 gm Calcium Acetate (Phoslo) 667 mg GT TIDCC [facility] Last Admin: 03/14/17 08:30 Dose: 667 mg Collagenase (Santyl) 0 gm TOP DAILY [facility] Last Admin: 03/14/17 10:25 Dose: 1 applic Heparin Sodium (Porcine) (Heparin) 5,000 units SC Q8 [facility] Last Admin: 03/14/17 06:20 Dose: 5,000 units Azithromycin 500 mg/ Sodium (Chloride) 250 mls @ 250 mls/hr IVPB DAILY [facility] Last Admin: 03/14/17 10:26 Dose: 250 mls/hr Cefepime HCl (Maxipime Iv 2 Gm Premix) 2 gm in 100 mls @ 100 mls/hr IVPB Q12H [facility] Last Admin: 03/14/17 06:18 Dose: 100 mls/hr Insulin Human Regular (Novolin R) 0 unit SC Q6 [facility] PRN Reason: Protocol Last Admin: 03/14/17 06:17 Dose: 2 unit Pantoprazole Sodium (Protonix Inj) 40 mg IVP DAILY [facility] Last Admin: 03/14/17 10:25 Dose: 40 mg Phenobarbital (Phenobarbital Inj) 90 mg IV Q8 [facility] Last Admin: 03/14/17 06:18 Dose: 90 mg Potassium Chloride (Potassium Chloride Oral Soln) 20 meq GT ONCE [facility] Last Admin: 03/09/17 13:52 Dose: 20 meq - Labs Labs: 03/14/17 06:30 03/14/17 06:30 PT 13.6 SECONDS (9.7-12.2) H 03/10/17 12:24 INR 1.2 03/10/17 12:24 APTT 32 SECONDS (21-34) 03/10/17 12:24 - Constitutional Appears: No Acute Distress - Extremities Exam Additional comments: Right lower extremity exam DERM: Open wound noted to medial aspect of right Hallux amputation site measuring 3.5cm x 2cm x 0.6cm with mostly fibrotic base. no purulent drainage noted, Wen wound erythema with necrotic edges measures <1cm margin. minimal Mal-odor is present. VASC: Palpable DP noted at 1/4, non-palpable PT noted. EQUIPMENT MAINTENANCE TECH less than 3 seconds to all digits noted. - Neurological Exam Neurological Exam: absent: Alert, Awake, Oriented x3 Assessment and Plan - Assessment and Plan (Free Text) Assessment: 52 yo male seen at bedside in the ICU for open wound to right Hallux amputation site Plan: patient seen and evaluated at bedside discussed in detail with attending Dr. Guzman labs and vitals reviewed WBC 11.9, afebrile Right foot cleansed with sterile normal saline, dressed with Santyl,DSD continue wearing offloading boots while bed bound Podiatry will continue to follow while In house
--- NOTE | 2017-03-14 11:41 | PN ---
DATE: 03/14/2017 NEUROLOGICAL PROBLEM: Status post anoxic encephalopathy with status epilepticus. PHYSICAL EXAMINATION: VITAL SIGNS: Blood pressure 141/82, mean arterial pressure of 83, respiratory rate 22, and pulse rate 99. NEUROLOGIC: The patient is lethargic. Eyes spontaneously opened and closed. There is good corneal reflex and good pupillary reflex. Flaccid quadriplegic. Some gag movement noted. From neurological point of view, the patient looks like he attained vegitative stage stage. The patient should be benefited on getting tracheostomy and PEG if family wishes. His clinical seizures are all stopped at present. Continue with the present management. Ronnie Rascon MD MTDD
--- NOTE | 2017-03-14 12:50 | CP.PCM.PN ---
Subjective - Date & Time of Evaluation Date of Evaluation: 03/14/17 Time of Evaluation: 12:48 - Subjective Subjective: Remains unresponsive UO - adequate Renal function better at 2.5mg % creatinine Lytes acceptable Neuro status not improving Objective - Vital Signs/Intake and Output Vital Signs (last 24 hours): Temp Pulse Resp BP Pulse Ox 98.7 F 101 H 17 111/64 100 03/14/17 11:23 03/14/17 11:00 03/14/17 11:00 03/14/17 11:00 03/14/17 10:00 Intake and Output: 03/14/17 03/14/17 06:59 18:59 Intake Total 720 425 Output Total 920 295 Balance -200 130 - Medications Medications: Current Medications Acetaminophen (Tylenol 650mg/20.3ml Solution Ud) 650 mg PO Q4 PRN PRN Reason: temp >101 Last Admin: 03/13/17 21:14 Dose: 650 mg Albuterol/Ipratropium (Duoneb 3 Mg/0.5 Mg (3 Ml) Ud) 3 ml INH RQ6 [facility] Last Admin: 03/14/17 07:15 Dose: 3 ml Artificial Tears (Lacri-Lube) 0 gm OS Q4H PRN PRN Reason: Other Last Admin: 03/12/17 10:07 Dose: 3.5 gm Calcium Acetate (Phoslo) 667 mg GT TIDCC [facility] Last Admin: 03/14/17 08:30 Dose: 667 mg Collagenase (Santyl) 0 gm TOP DAILY [facility] Last Admin: 03/14/17 10:25 Dose: 1 applic Heparin Sodium (Porcine) (Heparin) 5,000 units SC Q8 [facility] Last Admin: 03/14/17 06:20 Dose: 5,000 units Azithromycin 500 mg/ Sodium (Chloride) 250 mls @ 250 mls/hr IVPB DAILY [facility] Last Admin: 03/14/17 10:26 Dose: 250 mls/hr Cefepime HCl (Maxipime Iv 2 Gm Premix) 2 gm in 100 mls @ 100 mls/hr IVPB Q12H [facility] Last Admin: 03/14/17 06:18 Dose: 100 mls/hr Insulin Human Regular (Novolin R) 0 unit SC Q6 [facility] PRN Reason: Protocol Last Admin: 03/14/17 06:17 Dose: 2 unit Pantoprazole Sodium (Protonix Inj) 40 mg IVP DAILY [facility] Last Admin: 03/14/17 10:25 Dose: 40 mg Phenobarbital (Phenobarbital Inj) 90 mg IV Q8 [facility] Last Admin: 03/14/17 06:18 Dose: 90 mg Potassium Chloride (Potassium Chloride Oral Soln) 20 meq GT ONCE [facility] Last Admin: 03/09/17 13:52 Dose: 20 meq - Labs Labs: 03/14/17 06:30 03/14/17 06:30 PT 13.6 SECONDS (9.7-12.2) H 03/10/17 12:24 INR 1.2 03/10/17 12:24 APTT 32 SECONDS (21-34) 03/10/17 12:24 - Constitutional Appears: Non-toxic, No Acute Distress, Chronically Ill - Head Exam Head Exam: ATRAUMATIC, NORMAL INSPECTION - Neck Exam Neck Exam: Normal Inspection. absent: Tenderness - Respiratory Exam Respiratory Exam: Clear to Ausculation Bilateral, NORMAL BREATHING PATTERN - Cardiovascular Exam Cardiovascular Exam: REGULAR RHYTHM, +S1 - GI/Abdominal Exam GI & Abdominal Exam: Soft. absent: Tenderness - Extremities Exam Extremities Exam: Normal Inspection. absent: Tenderness - Neurological Exam Neurological Exam: Altered, Motor Sensory Deficit - Skin Skin Exam: Dry, Warm Assessment and Plan (1) SAUNDRA (acute kidney injury) Status: Acute (2) CHF (congestive heart failure) Status: Acute (3) Cardiac arrest Status: Acute (4) Open wound of right foot with complication Status: Acute (5) Respiratory failure Status: Acute - Assessment and Plan (Free Text) Plan: Continue to monitor renal function, lytes Considering hospice?
--- NOTE | 2017-03-14 12:55 | CP.PCM.PN ---
Subjective - Date & Time of Evaluation Date of Evaluation: 03/14/17 Time of Evaluation: 12:30 - Subjective Subjective: Vented, friend at bedside Objective - Vital Signs/Intake and Output Vital Signs (last 24 hours): Temp Pulse Resp BP Pulse Ox 98.7 F 101 H 17 111/64 100 03/14/17 11:23 03/14/17 11:00 03/14/17 11:00 03/14/17 11:00 03/14/17 10:00 Intake and Output: 03/14/17 03/14/17 06:59 18:59 Intake Total 720 425 Output Total 920 295 Balance -200 130 - Medications Medications: Current Medications Acetaminophen (Tylenol 650mg/20.3ml Solution Ud) 650 mg PO Q4 PRN PRN Reason: temp >101 Last Admin: 03/13/17 21:14 Dose: 650 mg Albuterol/Ipratropium (Duoneb 3 Mg/0.5 Mg (3 Ml) Ud) 3 ml INH RQ6 [facility] Last Admin: 03/14/17 07:15 Dose: 3 ml Artificial Tears (Lacri-Lube) 0 gm OS Q4H PRN PRN Reason: Other Last Admin: 03/12/17 10:07 Dose: 3.5 gm Calcium Acetate (Phoslo) 667 mg GT TIDCC [facility] Last Admin: 03/14/17 08:30 Dose: 667 mg Collagenase (Santyl) 0 gm TOP DAILY [facility] Last Admin: 03/14/17 10:25 Dose: 1 applic Heparin Sodium (Porcine) (Heparin) 5,000 units SC Q8 [facility] Last Admin: 03/14/17 06:20 Dose: 5,000 units Azithromycin 500 mg/ Sodium (Chloride) 250 mls @ 250 mls/hr IVPB DAILY [facility] Last Admin: 03/14/17 10:26 Dose: 250 mls/hr Cefepime HCl (Maxipime Iv 2 Gm Premix) 2 gm in 100 mls @ 100 mls/hr IVPB Q12H [facility] Last Admin: 03/14/17 06:18 Dose: 100 mls/hr Insulin Human Regular (Novolin R) 0 unit SC Q6 [facility] PRN Reason: Protocol Last Admin: 03/14/17 06:17 Dose: 2 unit Pantoprazole Sodium (Protonix Inj) 40 mg IVP DAILY [facility] Last Admin: 03/14/17 10:25 Dose: 40 mg Phenobarbital (Phenobarbital Inj) 90 mg IV Q8 [facility] Last Admin: 03/14/17 06:18 Dose: 90 mg Potassium Chloride (Potassium Chloride Oral Soln) 20 meq GT ONCE [facility] Last Admin: 03/09/17 13:52 Dose: 20 meq - Labs Labs: 03/14/17 06:30 03/14/17 06:30 PT 13.6 SECONDS (9.7-12.2) H 03/10/17 12:24 INR 1.2 03/10/17 12:24 APTT 32 SECONDS (21-34) 03/10/17 12:24 - Head Exam Head Exam: ATRAUMATIC - Eye Exam Eye Exam: Normal appearance - ENT Exam ENT Exam: Mucous Membranes Dry - Respiratory Exam Respiratory Exam: Decreased Breath Sounds - Cardiovascular Exam Cardiovascular Exam: +S1, +S2 - GI/Abdominal Exam GI & Abdominal Exam: Normal Bowel Sounds Assessment and Plan (1) Anemia Assessment & Plan: chronic disease monoclonal protein detected Status: Acute (2) Coagulopathy Assessment & Plan: nutritional Status: Acute
--- NOTE | 2017-03-14 14:43 | PN ---
DATE: LOCATION: ICU 17. SUBJECTIVE: This is a 52-year-old male seen and examined in rounds with some family members and friends at bedside. He is still intubated, connected to ventilator. NG tube is in place. The entire chart is reviewed including, but not limited to the most recent lab and the radiology study results, current and the previous medication list, and current and the previous medical events and no reported significant clinical changes. Today's labs showed leukocytosis of 11.9 with low hemoglobin 10.0, hematocrit 32.0, but normal platelet count with abnormal ABGs and increased BUN of 45, creatinine 2.5, blood glucose elevated to 186 with a low calcium of 8.4, increased phosphorous 4.6 with low albumin 3.3. Today's chest x-ray report is seen, indicative of increased right-sided pneumonia. PHYSICAL EXAMINATION: GENERAL: A 52-year-old male, intubated and sedated. VITAL SIGNS: Low-grade temperature of 99.4, heart rate of 98 with blood pressure of 124/70. HEENT: Showed pale dry oral mucous membranes. Nonicteric sclerae. LUNGS: Few scattered crepitations with decreased air entry at bases bilaterally. The patient is intubated on vent. HEART: Positive S1 and S2 with increased rate. ABDOMEN: Soft. Bowel sounds are present, but hypoactive. No mass or organomegaly. NEUROLOGIC: No reported neurological deficits, sensory or motor. The patient is unresponsive. IMPRESSION: 1. Status post cardiac arrest. 2. Respiratory failure and pneumonia. The patient is intubated on ventilator. 3. Malnutrition. 4. Anemia secondary to above. PLAN: 1. The patient is a candidate for PEG insertion as well as tracheostomy, still awaiting family decision. 2. Correct any underlying coagulopathy. 3. No aggressive GI workup in the meantime. Yola Sim MD
--- NOTE | 2017-03-14 15:02 | CP.PCM.PN ---
Subjective - Date & Time of Evaluation Date of Evaluation: 03/14/17 Time of Evaluation: 08:00 - Subjective Subjective: comatose vented iv rx in progress family refusing palliative measures Objective - Vital Signs/Intake and Output Vital Signs (last 24 hours): Temp Pulse Resp BP Pulse Ox 98.7 F 101 H 17 111/64 100 03/14/17 11:23 03/14/17 11:00 03/14/17 11:00 03/14/17 11:00 03/14/17 10:00 Intake and Output: 03/14/17 03/14/17 06:59 18:59 Intake Total 720 425 Output Total 920 295 Balance -200 130 - Medications Medications: Current Medications Acetaminophen (Tylenol 650mg/20.3ml Solution Ud) 650 mg PO Q4 PRN PRN Reason: temp >101 Last Admin: 03/13/17 21:14 Dose: 650 mg Albuterol/Ipratropium (Duoneb 3 Mg/0.5 Mg (3 Ml) Ud) 3 ml INH RQ6 [facility] Last Admin: 03/14/17 13:22 Dose: 3 ml Artificial Tears (Lacri-Lube) 0 gm OS Q4H PRN PRN Reason: Other Last Admin: 03/12/17 10:07 Dose: 3.5 gm Calcium Acetate (Phoslo) 667 mg GT TIDCC [facility] Last Admin: 03/14/17 08:30 Dose: 667 mg Collagenase (Santyl) 0 gm TOP DAILY [facility] Last Admin: 03/14/17 10:25 Dose: 1 applic Heparin Sodium (Porcine) (Heparin) 5,000 units SC Q8 [facility] Last Admin: 03/14/17 06:20 Dose: 5,000 units Azithromycin 500 mg/ Sodium (Chloride) 250 mls @ 250 mls/hr IVPB DAILY [facility] Last Admin: 03/14/17 10:26 Dose: 250 mls/hr Cefepime HCl (Maxipime Iv 2 Gm Premix) 2 gm in 100 mls @ 100 mls/hr IVPB Q12H [facility] Last Admin: 03/14/17 06:18 Dose: 100 mls/hr Insulin Human Regular (Novolin R) 0 unit SC Q6 [facility] PRN Reason: Protocol Last Admin: 03/14/17 06:17 Dose: 2 unit Pantoprazole Sodium (Protonix Inj) 40 mg IVP DAILY [facility] Last Admin: 03/14/17 10:25 Dose: 40 mg Phenobarbital (Phenobarbital Inj) 90 mg IV Q8 [facility] Last Admin: 03/14/17 06:18 Dose: 90 mg Potassium Chloride (Potassium Chloride Oral Soln) 20 meq GT ONCE [facility] Last Admin: 03/09/17 13:52 Dose: 20 meq - Labs Labs: 03/14/17 06:30 03/14/17 06:30 PT 13.6 SECONDS (9.7-12.2) H 03/10/17 12:24 INR 1.2 03/10/17 12:24 APTT 32 SECONDS (21-34) 03/10/17 12:24 - Constitutional Appears: Chronically Ill - Head Exam Head Exam: NORMOCEPHALIC - Eye Exam Eye Exam: PERRL - ENT Exam ENT Exam: Mucous Membranes Dry - Neck Exam Neck Exam: absent: Lymphadenopathy - Respiratory Exam Respiratory Exam: Decreased Breath Sounds - Cardiovascular Exam Cardiovascular Exam: REGULAR RHYTHM - GI/Abdominal Exam GI & Abdominal Exam: Distended - Exam Exam: NORMAL INSPECTION - Back Exam Back Exam: absent: CVA tenderness (L), CVA tenderness (R) - Neurological Exam Neurological Exam: Altered - Psychiatric Exam Psychiatric exam: Depressed - Skin Skin Exam: Dry Assessment and Plan (1) Cardiac arrest Status: Acute (2) Open wound of right foot with complication Status: Acute (3) Respiratory failure Status: Acute - Assessment and Plan (Free Text) Assessment: s/p cardiac arrest coma resp failure pneumonia Plan: cont iv antibiotics
--- NOTE | 2017-03-14 15:58 | CP.PCM.PN ---
Subjective - Date & Time of Evaluation Date of Evaluation: 03/14/17 Time of Evaluation: 08:00 Objective - Vital Signs/Intake and Output Vital Signs (last 24 hours): Temp Pulse Resp BP Pulse Ox 98.7 F 98 H 19 113/58 L 100 03/14/17 11:23 03/14/17 15:00 03/14/17 15:00 03/14/17 15:00 03/14/17 15:00 Intake and Output: 03/14/17 03/14/17 06:59 18:59 Intake Total 720 565 Output Total 920 520 Balance -200 45 - Medications Medications: Current Medications Acetaminophen (Tylenol 650mg/20.3ml Solution Ud) 650 mg PO Q4 PRN PRN Reason: temp >101 Last Admin: 03/13/17 21:14 Dose: 650 mg Albuterol/Ipratropium (Duoneb 3 Mg/0.5 Mg (3 Ml) Ud) 3 ml INH RQ6 [facility] Last Admin: 03/14/17 13:22 Dose: 3 ml Artificial Tears (Lacri-Lube) 0 gm OS Q4H PRN PRN Reason: Other Last Admin: 03/12/17 10:07 Dose: 3.5 gm Calcium Acetate (Phoslo) 667 mg GT TIDCC [facility] Last Admin: 03/14/17 12:36 Dose: 667 mg Collagenase (Santyl) 0 gm TOP DAILY [facility] Last Admin: 03/14/17 10:25 Dose: 1 applic Heparin Sodium (Porcine) (Heparin) 5,000 units SC Q12 [facility] Azithromycin 500 mg/ Sodium (Chloride) 250 mls @ 250 mls/hr IVPB DAILY [facility] Last Admin: 03/14/17 10:26 Dose: 250 mls/hr Cefepime HCl (Maxipime Iv 2 Gm Premix) 2 gm in 100 mls @ 100 mls/hr IVPB Q12H [facility] Last Admin: 03/14/17 06:18 Dose: 100 mls/hr Insulin Human Regular (Novolin R) 0 unit SC Q6 [facility] PRN Reason: Protocol Last Admin: 03/14/17 12:30 Dose: 4 unit Pantoprazole Sodium (Protonix Inj) 40 mg IVP DAILY [facility] Last Admin: 03/14/17 10:25 Dose: 40 mg Phenobarbital (Phenobarbital Inj) 90 mg IV Q8 [facility] Last Admin: 03/14/17 06:18 Dose: 90 mg Potassium Chloride (Potassium Chloride Oral Soln) 20 meq GT ONCE [facility] Last Admin: 03/09/17 13:52 Dose: 20 meq - Labs Labs: 03/14/17 06:30 03/14/17 06:30 PT 13.6 SECONDS (9.7-12.2) H 03/10/17 12:24 INR 1.2 03/10/17 12:24 APTT 32 SECONDS (21-34) 03/10/17 12:24
--- NOTE | 2017-03-14 16:25 | CP.CCUPN ---
CCU Subjective - Physician Review Subjective (Free Text): Patient seen and examined at bedside. ROS unobtainable due to patient's current clinical status. Patient is on ventilator support. No changes in mental status. Family meeting to be held today with palliative care to discuss goals of care and code status. CCU Objective - Vital Signs / Intake & Output Vital Signs (Last 4 hours): Vital Signs Pulse Resp BP Pulse Ox 03/14/17 15:00 98 H 19 113/58 L 100 03/14/17 14:00 96 H 16 112/57 L 03/14/17 13:00 98 H 16 121/64 Intake and Output (Last 8hrs): Intake & Output 03/14/17 03/14/17 03/14/17 06:59 14:59 22:59 Intake Total 480 530 35 Output Total 540 445 75 Balance -60 85 -40 Weight 170 lb 14.4 oz Intake: Intake, IV Amount 250 Left Hand 0 Right Antecubital 250 Right Hand 0 Tube Feeding 280 280 35 Other 200 Output: Urine 540 445 75 Urethral (Gipson) 540 445 75 Stool 0 Emesis 0 Other: # Bowel Movements 0 0 - Physical Exam Head: Positive for: Atraumatic, Normocephalic Mouth: Positive for: Moist Mucous Membranes Respiratory/Chest: Positive for: Rales Cardiovascular: Positive for: Regular Rate and Rhythm, Normal S1, S2 Abdomen: Negative for: Distention Lower Extremity: Positive for: Other (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 Negative for: Alert, Oriented x 3 - Medications Active Medications: Active Medications Generic Name Dose Route Start Last Admin Trade Name Freq PRN Reason Stop Dose Admin Acetaminophen 650 mg 03/05/17 22:55 03/13/17 21:14 Tylenol 650mg/20.3ml Solution Ud PO 650 mg Q4 PRN Administration temp >101 Albuterol/Ipratropium 3 ml 03/10/17 20:00 03/14/17 13:22 Duoneb 3 Mg/0.5 Mg (3 Ml) Ud INH 3 ml RQ6 TENA Administration Artificial Tears 0 gm 03/06/17 10:04 03/12/17 10:07 Lacri-Lube OS 3.5 gm Q4H PRN Administration Other Calcium Acetate 667 mg 03/08/17 10:00 03/14/17 12:36 Phoslo GT 667 mg TIDCC TENA Administration Collagenase 0 gm 03/10/17 10:00 03/14/17 10:25 Santyl TOP 1 applic DAILY TENA Administration Heparin Sodium (Porcine) 5,000 units 03/14/17 22:00 Heparin SC Q12 TENA Azithromycin 500 mg/ Sodium 250 mls @ 250 mls/hr 03/11/17 10:00 03/14/17 10: 26 Chloride IVPB 250 mls/hr DAILY TENA Administration Cefepime HCl 2 gm in 100 mls @ 100 mls/hr 03/13/17 18:00 03/14/17 06:18 Maxipime Iv 2 Gm Premix IVPB 100 mls/hr Q12H TENA Administration Insulin Human Regular 0 unit 03/14/17 00:00 03/14/17 12:30 Novolin R SC 4 unit Q6 TENA Administration Protocol Pantoprazole Sodium 40 mg 03/05/17 10:00 03/14/17 10:25 Protonix Inj IVP 40 mg DAILY TENA Administration Phenobarbital 90 mg 03/10/17 06:00 03/14/17 06:18 Phenobarbital Inj IV 90 mg Q8 TENA Administration Potassium Chloride 20 meq 03/09/17 13:15 03/09/17 13:52 Potassium Chloride Oral Soln GT 20 meq ONCE TENA Administration - Patient Studies Lab Studies: Microbiology Studies 03/13/17 17:00 Gram Stain - Final Trachasp Lab Studies 03/14/17 03/14/17 03/14/17 Range/Units 12:11 06:30 06:30 WBC 11.9 H (4.8-10.8) K/uL RBC 3.53 L (4.40-5.90) Mil/uL Hgb 10.3 L (12.0-18.0) g/dL Hct 32.0 L (35.0-51.0) % MCV 90.8 (80.0-94.0) fL MCH 29.1 (27.0-31.0) pg MCHC 32.1 L (33.0-37.0) g/dL RDW 15.8 H (11.5-14.5) % Plt Count 186 (130-400) K/uL MPV 10.6 (7.2-11.7) fL Neut % (Auto) 83.6 H (50.0-75.0) % Lymph % (Auto) 9.2 L (20.0-40.0) % [place] % (Auto) 4.8 (0.0-10.0) % Eos % (Auto) 2.0 (0.0-4.0) % Baso % (Auto) 0.4 (0.0-2.0) % Neut # 9.9 H (1.8-7.0) K/uL Lymph # 1.1 (1.0-4.3) K/uL [place] # 0.6 (0.0-0.8) K/uL Eos # 0.2 (0.0-0.7) K/uL Baso # 0.0 (0.0-0.2) K/uL Neutrophils % (Manual) 87 H (50-75) % Band Neutrophils % 1 (0-2) % Lymphocytes % (Manual) 10 L (20-40) % Monocytes % (Manual) 2 (0-10) % Platelet Estimate Normal (NORMAL) Anisocytosis (manual) Slight Puncture Site pCO2 (35-45) mm/Hg pO2 (80-100) mm/Hg HCO3 (21-28) mmol/L ABG pH (7.35-7.45) ABG Total CO2 (22-28) mmol/L ABG O2 Saturation (95-98) % ABG Base Excess (-2.0-3.0) mmol/L ABG Hemoglobin (11.7-17.4) g/dL ABG Carboxyhemoglobin (0.5-1.5) % POC ABG HHb (Measured) (0.0-5.0) % ABG Methemoglobin (0.0-3.0) % Reji Test A-a O2 Difference mm/Hg Respiratory Index Hgb O2 Saturation (95.0-98.0) % Vent Mode Mechanical Rate FiO2 % Tidal Volume PEEP Sodium 147 (132-148) mmol/L Potassium 4.0 (3.6-5.2) mmol/L Chloride 108 H (98-107) mmol/L Carbon Dioxide 26 (22-30) mmol/L Anion Gap 17 (10-20) BUN 45 H (9-20) mg/dL Creatinine 2.5 H (0.8-1.5) mg/dL Est GFR ( Amer) 33 Est GFR (Non-Af Amer) 27 POC Glucose (mg/dL) 214 H (65-110) mg/dL Random Glucose 180 H (75-110) mg/dL Calcium 8.4 L (8.6-10.4) mg/dl Phosphorus 4.6 H (2.5-4.5) mg/dL Magnesium 2.2 (1.6-2.3) mg/dL Total Bilirubin 0.4 (0.2-1.3) mg/dL AST 41 (17-59) U/L ALT 34 (21-72) U/L Alkaline Phosphatase 79 (38-126) U/L Total Protein 7.6 (6.3-8.3) g/dL Albumin 3.3 L (3.5-5.0) g/dL Globulin 4.3 H (2.2-3.9) gm/dL Albumin/Globulin Ratio 0.8 L (1.0-2.1) Urine Color (YELLOW) Urine Clarity (Clear) Urine pH (5.0-8.0) Ur Specific [place] (1.003-1.030) Urine Protein (NEGATIVE) mg/dL Urine Glucose (UA) (Normal) mg/dL Urine Ketones (NEGATIVE) mg/dL Urine Blood (NEGATIVE) Urine Nitrate (NEGATIVE) Urine Bilirubin (NEGATIVE) Urine Urobilinogen (0.2-1.0) mg/dL Ur Leukocyte Esterase (Negative) Mika/uL Urine WBC (Auto) (0-5) /hpf Urine RBC (Auto) (0-3) /hpf Urine Bacteria (<OCC) 03/14/17 03/14/17 03/14/17 Range/Units 06:05 04:56 00:26 WBC (4.8-10.8) K/uL RBC (4.40-5.90) Mil/uL Hgb (12.0-18.0) g/dL Hct (35.0-51.0) % MCV (80.0-94.0) fL MCH (27.0-31.0) pg MCHC (33.0-37.0) g/dL RDW (11.5-14.5) % Plt Count (130-400) K/uL MPV (7.2-11.7) fL Neut % (Auto) (50.0-75.0) % Lymph % (Auto) (20.0-40.0) % [place] % (Auto) (0.0-10.0) % Eos % (Auto) (0.0-4.0) % Baso % (Auto) (0.0-2.0) % Neut # (1.8-7.0) K/uL Lymph # (1.0-4.3) K/uL [place] # (0.0-0.8) K/uL Eos # (0.0-0.7) K/uL Baso # (0.0-0.2) K/uL Neutrophils % (Manual) (50-75) % Band Neutrophils % (0-2) % Lymphocytes % (Manual) (20-40) % Monocytes % (Manual) (0-10) % Platelet Estimate (NORMAL) Anisocytosis (manual) Puncture Site Lb pCO2 39 (35-45) mm/Hg pO2 93 (80-100) mm/Hg HCO3 28.9 H (21-28) mmol/L ABG pH 7.48 H (7.35-7.45) ABG Total CO2 30.2 H (22-28) mmol/L ABG O2 Saturation 98.2 H (95-98) % ABG Base Excess 5.1 H (-2.0-3.0) mmol/L ABG Hemoglobin 10.5 L (11.7-17.4) g/dL ABG Carboxyhemoglobin 1.6 H (0.5-1.5) % POC ABG HHb (Measured) 1.7 (0.0-5.0) % ABG Methemoglobin 1.3 (0.0-3.0) % Reji Test Na A-a O2 Difference 215.0 mm/Hg Respiratory Index 2.3 Hgb O2 Saturation 95.4 (95.0-98.0) % Vent Mode Prvc Mechanical Rate 16 FiO2 50.0 % Tidal Volume 450 PEEP 5 Sodium (132-148) mmol/L Potassium (3.6-5.2) mmol/L Chloride (98-107) mmol/L Carbon Dioxide (22-30) mmol/L Anion Gap (10-20) BUN (9-20) mg/dL Creatinine (0.8-1.5) mg/dL Est GFR ( Amer) Est GFR (Non-Af Amer) POC Glucose (mg/dL) 186 H 189 H (65-110) mg/dL Random Glucose (75-110) mg/dL Calcium (8.6-10.4) mg/dl Phosphorus (2.5-4.5) mg/dL Magnesium (1.6-2.3) mg/dL Total Bilirubin (0.2-1.3) mg/dL AST (17-59) U/L ALT (21-72) U/L Alkaline Phosphatase (38-126) U/L Total Protein (6.3-8.3) g/dL Albumin (3.5-5.0) g/dL Globulin (2.2-3.9) gm/dL Albumin/Globulin Ratio (1.0-2.1) Urine Color (YELLOW) Urine Clarity (Clear) Urine pH (5.0-8.0) Ur Specific [place] (1.003-1.030) Urine Protein (NEGATIVE) mg/dL Urine Glucose (UA) (Normal) mg/dL Urine Ketones (NEGATIVE) mg/dL Urine Blood (NEGATIVE) Urine Nitrate (NEGATIVE) Urine Bilirubin (NEGATIVE) Urine Urobilinogen (0.2-1.0) mg/dL Ur Leukocyte Esterase (Negative) Mika/uL Urine WBC (Auto) (0-5) /hpf Urine RBC (Auto) (0-3) /hpf Urine Bacteria (<OCC) 03/13/17 03/13/17 Range/Units 18:14 17:00 WBC (4.8-10.8) K/uL RBC (4.40-5.90) Mil/uL Hgb (12.0-18.0) g/dL Hct (35.0-51.0) % MCV (80.0-94.0) fL MCH (27.0-31.0) pg MCHC (33.0-37.0) g/dL RDW (11.5-14.5) % Plt Count (130-400) K/uL MPV (7.2-11.7) fL Neut % (Auto) (50.0-75.0) % Lymph % (Auto) (20.0-40.0) % [place] % (Auto) (0.0-10.0) % Eos % (Auto) (0.0-4.0) % Baso % (Auto) (0.0-2.0) % Neut # (1.8-7.0) K/uL Lymph # (1.0-4.3) K/uL [place] # (0.0-0.8) K/uL Eos # (0.0-0.7) K/uL Baso # (0.0-0.2) K/uL Neutrophils % (Manual) (50-75) % Band Neutrophils % (0-2) % Lymphocytes % (Manual) (20-40) % Monocytes % (Manual) (0-10) % Platelet Estimate (NORMAL) Anisocytosis (manual) Puncture Site pCO2 (35-45) mm/Hg pO2 (80-100) mm/Hg HCO3 (21-28) mmol/L ABG pH (7.35-7.45) ABG Total CO2 (22-28) mmol/L ABG O2 Saturation (95-98) % ABG Base Excess (-2.0-3.0) mmol/L ABG Hemoglobin (11.7-17.4) g/dL ABG Carboxyhemoglobin (0.5-1.5) % POC ABG HHb (Measured) (0.0-5.0) % ABG Methemoglobin (0.0-3.0) % Reji Test A-a O2 Difference mm/Hg Respiratory Index Hgb O2 Saturation (95.0-98.0) % Vent Mode Mechanical Rate FiO2 % Tidal Volume PEEP Sodium (132-148) mmol/L Potassium (3.6-5.2) mmol/L Chloride (98-107) mmol/L Carbon Dioxide (22-30) mmol/L Anion Gap (10-20) BUN (9-20) mg/dL Creatinine (0.8-1.5) mg/dL Est GFR ( Amer) Est GFR (Non-Af Amer) POC Glucose (mg/dL) 177 H (65-110) mg/dL Random Glucose (75-110) mg/dL Calcium (8.6-10.4) mg/dl Phosphorus (2.5-4.5) mg/dL Magnesium (1.6-2.3) mg/dL Total Bilirubin (0.2-1.3) mg/dL AST (17-59) U/L ALT (21-72) U/L Alkaline Phosphatase (38-126) U/L Total Protein (6.3-8.3) g/dL Albumin (3.5-5.0) g/dL Globulin (2.2-3.9) gm/dL Albumin/Globulin Ratio (1.0-2.1) Urine Color Straw (YELLOW) Urine Clarity Clear (Clear) Urine pH 7.0 (5.0-8.0) Ur Specific [place] 1.013 (1.003-1.030) Urine Protein Negative (NEGATIVE) mg/dL Urine Glucose (UA) Normal (Normal) mg/dL Urine Ketones Negative (NEGATIVE) mg/dL Urine Blood 1+ H (NEGATIVE) Urine Nitrate Negative (NEGATIVE) Urine Bilirubin Negative (NEGATIVE) Urine Urobilinogen Normal (0.2-1.0) mg/dL Ur Leukocyte Esterase Neg (Negative) Mika/uL Urine WBC (Auto) 2 (0-5) /hpf Urine RBC (Auto) 4 H (0-3) /hpf Urine Bacteria Rare (<OCC) Laboratory Results - last 24 hr 03/13/17 03/13/17 03/14/17 17:00 18:14 00:26 WBC RBC Hgb Hct MCV MCH MCHC RDW Plt Count MPV Neut % (Auto) Lymph % (Auto) [place] % (Auto) Eos % (Auto) Baso % (Auto) Neut # Lymph # [place] # Eos # Baso # Neutrophils % (Manual) Band Neutrophils % Lymphocytes % (Manual) Monocytes % (Manual) Platelet Estimate Anisocytosis (manual) Puncture Site pCO2 pO2 HCO3 ABG pH ABG Total CO2 ABG O2 Saturation ABG Base Excess ABG Hemoglobin ABG Carboxyhemoglobin POC ABG HHb (Measured) ABG Methemoglobin Reji Test A-a O2 Difference Respiratory Index Hgb O2 Saturation Vent Mode Mechanical Rate FiO2 Tidal Volume PEEP Sodium Potassium Chloride Carbon Dioxide Anion Gap BUN Creatinine Est GFR ( Amer) Est GFR (Non-Af Amer) POC Glucose (mg/dL) 177 H 189 H Random Glucose Calcium Phosphorus Magnesium Total Bilirubin AST ALT Alkaline Phosphatase Total Protein Albumin Globulin Albumin/Globulin Ratio Urine Color Straw Urine Clarity Clear Urine pH 7.0 Ur Specific [place] 1.013 Urine Protein Negative Urine Glucose (UA) Normal Urine Ketones Negative Urine Blood 1+ H Urine Nitrate Negative Urine Bilirubin Negative Urine Urobilinogen Normal Ur Leukocyte Esterase Neg Urine WBC (Auto) 2 Urine RBC (Auto) 4 H Urine Bacteria Rare 03/14/17 03/14/17 03/14/17 04:56 06:05 06:30 WBC 11.9 H RBC 3.53 L Hgb 10.3 L Hct 32.0 L MCV 90.8 MCH 29.1 MCHC 32.1 L RDW 15.8 H Plt Count 186 MPV 10.6 Neut % (Auto) 83.6 H Lymph % (Auto) 9.2 L [place] % (Auto) 4.8 Eos % (Auto) 2.0 Baso % (Auto) 0.4 Neut # 9.9 H Lymph # 1.1 [place] # 0.6 Eos # 0.2 Baso # 0.0 Neutrophils % (Manual) 87 H Band Neutrophils % 1 Lymphocytes % (Manual) 10 L Monocytes % (Manual) 2 Platelet Estimate Normal Anisocytosis (manual) Slight Puncture Site Lb pCO2 39 pO2 93 HCO3 28.9 H ABG pH 7.48 H ABG Total CO2 30.2 H ABG O2 Saturation 98.2 H ABG Base Excess 5.1 H ABG Hemoglobin 10.5 L ABG Carboxyhemoglobin 1.6 H POC ABG HHb (Measured) 1.7 ABG Methemoglobin 1.3 Reji Test Na A-a O2 Difference 215.0 Respiratory Index 2.3 Hgb O2 Saturation 95.4 Vent Mode Prvc Mechanical Rate 16 FiO2 50.0 Tidal Volume 450 PEEP 5 Sodium Potassium Chloride Carbon Dioxide Anion Gap BUN Creatinine Est GFR ( Amer) Est GFR (Non-Af Amer) POC Glucose (mg/dL) 186 H Random Glucose Calcium Phosphorus Magnesium Total Bilirubin AST ALT Alkaline Phosphatase Total Protein Albumin Globulin Albumin/Globulin Ratio Urine Color Urine Clarity Urine pH Ur Specific [place] Urine Protein Urine Glucose (UA) Urine Ketones Urine Blood Urine Nitrate Urine Bilirubin Urine Urobilinogen Ur Leukocyte Esterase Urine WBC (Auto) Urine RBC (Auto) Urine Bacteria 03/14/17 03/14/17 06:30 12:11 WBC RBC Hgb Hct MCV MCH MCHC RDW Plt Count MPV Neut % (Auto) Lymph % (Auto) [place] % (Auto) Eos % (Auto) Baso % (Auto) Neut # Lymph # [place] # Eos # Baso # Neutrophils % (Manual) Band Neutrophils % Lymphocytes % (Manual) Monocytes % (Manual) Platelet Estimate Anisocytosis (manual) Puncture Site pCO2 pO2 HCO3 ABG pH ABG Total CO2 ABG O2 Saturation ABG Base Excess ABG Hemoglobin ABG Carboxyhemoglobin POC ABG HHb (Measured) ABG Methemoglobin Reji Test A-a O2 Difference Respiratory Index Hgb O2 Saturation Vent Mode Mechanical Rate FiO2 Tidal Volume PEEP Sodium 147 Potassium 4.0 Chloride 108 H Carbon Dioxide 26 Anion Gap 17 BUN 45 H Creatinine 2.5 H Est GFR ( Amer) 33 Est GFR (Non-Af Amer) 27 POC Glucose (mg/dL) 214 H Random Glucose 180 H Calcium 8.4 L Phosphorus 4.6 H Magnesium 2.2 Total Bilirubin 0.4 AST 41 ALT 34 Alkaline Phosphatase 79 Total Protein 7.6 Albumin 3.3 L Globulin 4.3 H Albumin/Globulin Ratio 0.8 L Urine Color Urine Clarity Urine pH Ur Specific [place] Urine Protein Urine Glucose (UA) Urine Ketones Urine Blood Urine Nitrate Urine Bilirubin Urine Urobilinogen Ur Leukocyte Esterase Urine WBC (Auto) Urine RBC (Auto) Urine Bacteria Fingerstick Blood Sugar Results: 214 Review of Systems - Review of Systems Systems not reviewed;Unavailable: Intubated Assessment/Plan - Assessment and Plan (Free Text) Assessment: 52 y/o M with pmhx of HTN, DM II, kidney disease, who was brought to the ED after he collapsed in ED at home and was found in asystole. Patient given 3 doses of epi and CPR for 15 minutes then ROSC. Patient intubated in the field. Patient went into cardiac arrest twice more in the ICU. Plan: Neuro: Intubated, altered mental status (no improvement) Medication and Management: * Ativan 1 mg q2h PRN seizure activity * Keppra 500 mg q12h * Phenobarbital 90 mg IV Q8 * Dr. Rascon consulted, help appreciated Imaging: (03/08) Blood flow study - criteria for brain not established on the current examination Head CT (03/04): chronic microvascular ischemic changes, no acute intracranial hemorrhage EEG (03/05/17): periodic paroxysmal activities lasting about 2-3 seconds with intermittent burst suppression suggestive of status epileptiform activities. Head CT (03/06/17): nonspecific white matter changes Pulm: Respiratory distress secondary to cardiac arrest Medication and Management * Patient intubated * Lasix d/c * gipson to measure urine output * Propofol 5mcg/kg/min * Duonebs prn Imaging: Chest X-ray (03/07/17): Minimal left pleural effusion, CHF improving Cardio: s/p cardiac arrest Medication and management: * Off of pressers * Dr. Tate consulted, help appreciated * Echo (03/04/17): LVEF:42, mild to moderate LV systolic dysfunction. Normal chamber size. Trace MR and TR. Trace pericardial effusion. Pleural effusion. Heme: anemia Medication and management: * 03/13: Hgb 10.3 * 03/12 Hgb 8.6 - continue to monitor and transfuse as needed * 03/06/17: HgB/Hct: 7/20.6, transfused 2 u PRBCs * 03/07/17: HgB/ Hct: 9.6/28.2 * Dr. Rubio consulted help appreciated -> monoclonal protein detected Endo: DM II Medication and management: * Regular ISS- increased to high on 03/08 * accucheck q6h * HgA1C: 9.4 Renal: SAUNDRA - table Medication and management: * Lasix d/c on 03/08 * f/u recommendation as per Dr. Charles - monitor lytes * monitor K level and replaced as necessary * BUN/CR 45/2.5 * Phoslo 667mg GT TIDCC MSK: right foot wound secondary to first metatarsal amputation Medication and management: * Wound care - Right foot dressed with Santyl,DSD * Dr. Guzman, podiatry, consulted- help appreciated ID: Medication and management: * Cefemine IV @ gram IVPB Q12 * Azithromycin 250mg IVPB daily - started 03/11 * Vanc and Zosyn discontinues * MRSA in nose * Urine culture (-) 03/04 * blood culture (-) 03/04 * Dr. Shore consulted, help appreciated Prophylaxis: DVT: Heparin 5,000 u sc Q12 hours GI: Protonix 40 mg IVP daily glucerna feeds at 35ml/hr, 100 cc free water flushes q6h Prognosis is very poor. Will have a family meeting today with palliative care to discuss goals of care and code status. Patient's family would like to speak to Dr. Muriel English regarding this issue.
--- NOTE | 2017-03-14 20:34 | CP.PCM.PN ---
Subjective - Date & Time of Evaluation Date of Evaluation: 03/14/17 Time of Evaluation: 12:40 - Subjective Subjective: clinically same Objective - Vital Signs/Intake and Output Vital Signs (last 24 hours): Temp Pulse Resp BP Pulse Ox 98.4 F 100 H 20 125/71 100 03/14/17 16:00 03/14/17 20:00 03/14/17 20:00 03/14/17 20:00 03/14/17 20:00 Intake and Output: 03/14/17 03/15/17 18:59 06:59 Intake Total 670 35 Output Total 695 50 Balance -25 -15 - Medications Medications: Current Medications Acetaminophen (Tylenol 650mg/20.3ml Solution Ud) 650 mg PO Q4 PRN PRN Reason: temp >101 Last Admin: 03/13/17 21:14 Dose: 650 mg Albuterol/Ipratropium (Duoneb 3 Mg/0.5 Mg (3 Ml) Ud) 3 ml INH RQ6 [facility] Last Admin: 03/14/17 19:34 Dose: 3 ml Artificial Tears (Lacri-Lube) 0 gm OS Q4H PRN PRN Reason: Other Last Admin: 03/12/17 10:07 Dose: 3.5 gm Calcium Acetate (Phoslo) 667 mg GT TIDCC [facility] Last Admin: 03/14/17 16:01 Dose: 667 mg Collagenase (Santyl) 0 gm TOP DAILY [facility] Last Admin: 03/14/17 10:25 Dose: 1 applic Heparin Sodium (Porcine) (Heparin) 5,000 units SC Q12 [facility] Azithromycin 500 mg/ Sodium (Chloride) 250 mls @ 250 mls/hr IVPB DAILY [facility] Last Admin: 03/14/17 10:26 Dose: 250 mls/hr Cefepime HCl (Maxipime Iv 2 Gm Premix) 2 gm in 100 mls @ 100 mls/hr IVPB Q12H [facility] Last Admin: 03/14/17 17:26 Dose: 100 mls/hr Insulin Human Regular (Novolin R) 0 unit SC Q6 TENA PRN Reason: Protocol Last Admin: 03/14/17 17:36 Dose: 2 unit Levetiracetam (Keppra) 500 mg PO Q12 [facility] Pantoprazole Sodium (Protonix Inj) 40 mg IVP DAILY [facility] Last Admin: 03/14/17 10:25 Dose: 40 mg Phenobarbital (Phenobarbital Inj) 90 mg IV Q8 [facility] Last Admin: 03/14/17 16:01 Dose: 90 mg Potassium Chloride (Potassium Chloride Oral Soln) 20 meq GT ONCE [facility] Last Admin: 03/09/17 13:52 Dose: 20 meq - Labs Labs: 03/14/17 06:30 03/14/17 06:30 PT 13.6 SECONDS (9.7-12.2) H 03/10/17 12:24 INR 1.2 03/10/17 12:24 APTT 32 SECONDS (21-34) 03/10/17 12:24 - Constitutional Appears: Well - Head Exam Head Exam: ATRAUMATIC, NORMAL INSPECTION, NORMOCEPHALIC - Eye Exam Eye Exam: EOMI, Normal appearance, PERRL Pupil Exam: NORMAL ACCOMODATION, PERRL - ENT Exam ENT Exam: Mucous Membranes Moist, Normal Exam - Neck Exam Neck Exam: Full ROM, Normal Inspection. absent: Lymphadenopathy - Respiratory Exam Respiratory Exam: Decreased Breath Sounds - Cardiovascular Exam Cardiovascular Exam: REGULAR RHYTHM, +S1, +S2 - GI/Abdominal Exam GI & Abdominal Exam: Soft, Diminished Bowel Sounds - Rectal Exam Rectal Exam: Deferred Assessment and Plan (1) Anemia Status: Acute (2) Anoxic encephalopathy Status: Acute (3) Anoxic encephalopathy Status: Acute (4) CHF (congestive heart failure) Status: Acute (5) Cardiac arrest Status: Acute (6) Coagulopathy Status: Acute (7) Open wound of right foot with complication Status: Acute (8) Respiratory failure Status: Acute (9) SAUNDRA (acute kidney injury) Status: Resolved - Assessment and Plan (Free Text) Plan: Patient examined. Patient on ventilator. Patient's review besides the patient. Continue cefepime, azithromycin. Continue supportive medications.
[2017-03-14] MEDS: Acetaminophen 650mg/20.3ml solution UD PO PRN (21:58)
[2017-03-14] MEDS: levETIRAcetam 100 mg/ml (5ml) Oral Syringe PO SCH (21:58)
[2017-03-14] MEDS: White Petrolatum/Mineral Oil Ophth Oint(3.5 gm) OS PRN (22:04)
[2017-03-15] MEDS: (Novolin R) Insulin Human Regular 100 units/ml vial SC SCH ×5 (00:07→17:35)
[2017-03-15] MEDS: Albuterol-Ipratrop 3 mg / 0.5 (3 ml) UD INH SCH ×4 (01:13→19:27)
[2017-03-15] MEDS: Cefepime IV 2 gm in Dextrose 2 GM/100 ML BAG IVPB SCH ×2 (05:47→17:28)
[2017-03-15 05:50] LABS: BASO # 0.1 K/uL (0.0-0.2); BASO % 0.5 % (0.0-2.0); EOS # 0.2 K/uL (0.0-0.7); EOS % 1.7 % (0.0-4.0); HEMATOCRIT 33.1 % (35.0-51.0); LYMPH # 1.4 K/uL (1.0-4.3); LYMPH % 9.9 % (20.0-40.0); MEAN CELL VOLUME 91.3 fL (80.0-94.0); MEAN CORPUSCULAR HEMOGLOBIN 29.8 pg (27.0-31.0); MEAN CORPUSCULAR HGB CONC 32.7 g/dL (33.0-37.0); MEAN PLATELET VOLUME 10.7 fL (7.2-11.7); MONO # 0.8 K/uL (0.0-0.8); MONO % 5.7 % (0.0-10.0); NRBC % 0.1 % (0.0-2.0); PLATELET COUNT 205 K/uL (130-400); RED CELL DISTRIBUTION WIDTH 15.5 % (11.5-14.5)
[2017-03-15 05:53] LABS: ABG ALLEN TEST POS; ABG MECHANICAL RATE 16; ARTERIAL BLOOD GAS MODE PRVC; ARTERIAL BLOOD HGB O2 SAT 96.7 % (95.0-98.0); ATERIAL BLOOD GAS PEEP 5; CARBOXYHEMOGLOBIN 1.4 % (0.5-1.5); DRAW SITE RR; HHB 1.1 % (0.0-5.0); METHEMOGLOBIN 0.8 % (0.0-3.0)
[2017-03-15 06:57] LABS: POTASSIUM 4.1 mmol/L (3.6-5.2)
[2017-03-15 06:59] LABS: ALB/GLOB RATIO 0.7 (1.0-2.1); BILIRUBIN,TOTAL 0.5 mg/dL (0.2-1.3); PHOSPHOROUS 3.9 mg/dL (2.5-4.5); TOTAL PROTEIN 8.2 g/dL (6.3-8.3)
[2017-03-15 07:00] LABS: CALCIUM 8.6 mg/dl (8.6-10.4); MAGNESIUM 2.4 mg/dL (1.6-2.3)
[2017-03-15 08:22] LABS: EOSINOPHIL 1 % (0-4); NEUTROPHIL 80 % (50-75); TOTAL CELLS COUNTED 100
--- NOTE | 2017-03-15 08:53 | RAD ---
Chest x-ray single frontal view History: Ventilator support Comparison: 03/14/2017 Findings: Lines and tubes in stable position. Biapical pleural thickening with upper lobe granulomatous changes. Moderate venous congestion. Confluent airspace opacification in the mid to lower lung zones bilaterally with small bilateral pleural effusions. Mild cardiomegaly. Degenerative changes in the spine and shoulders. Productive change at the end of the 1st right rib. Impression: Lines and tubes in stable position. Biapical pleural thickening with upper lobe granulomatous changes. Moderate venous congestion. Confluent airspace opacification in the mid to lower lung zones bilaterally with small bilateral pleural effusions. Mild cardiomegaly.
--- NOTE | 2017-03-15 09:47 | CP.PCM.PN ---
Subjective - Date & Time of Evaluation Date of Evaluation: 03/15/17 Time of Evaluation: 09:44 - Subjective Subjective: Remains vented, unresponsive UO - excellent Lytes acceptable Creat stable at 2.4 mg % Objective - Vital Signs/Intake and Output Vital Signs (last 24 hours): Temp Pulse Resp BP Pulse Ox 99.5 F 88 23 131/71 100 03/15/17 08:00 03/15/17 09:00 03/15/17 09:00 03/15/17 09:00 03/15/17 09:00 Intake and Output: 03/15/17 03/15/17 06:59 18:59 Intake Total 755 70 Output Total 945 Balance -190 70 - Medications Medications: Current Medications Acetaminophen (Tylenol 650mg/20.3ml Solution Ud) 650 mg PO Q4 PRN PRN Reason: temp >101 Last Admin: 03/14/17 21:58 Dose: 650 mg Albuterol/Ipratropium (Duoneb 3 Mg/0.5 Mg (3 Ml) Ud) 3 ml INH RQ6 [facility] Last Admin: 03/15/17 07:05 Dose: 3 ml Artificial Tears (Lacri-Lube) 0 gm OS Q4H PRN PRN Reason: Other Last Admin: 03/14/17 22:04 Dose: 1 gm Calcium Acetate (Phoslo) 667 mg GT TIDCC [facility] Last Admin: 03/14/17 16:01 Dose: 667 mg Collagenase (Santyl) 0 gm TOP DAILY TENA Last Admin: 03/14/17 10:25 Dose: 1 applic Heparin Sodium (Porcine) (Heparin) 5,000 units SC Q12 [facility]NA Last Admin: 03/14/17 21:57 Dose: 5,000 units Azithromycin 500 mg/ Sodium (Chloride) 250 mls @ 250 mls/hr IVPB DAILY [facility] Last Admin: 03/14/17 10:26 Dose: 250 mls/hr Cefepime HCl (Maxipime Iv 2 Gm Premix) 2 gm in 100 mls @ 100 mls/hr IVPB Q12H [facility] Last Admin: 03/15/17 05:47 Dose: 100 mls/hr Insulin Human Regular (Novolin R) 0 unit SC Q6 TENA PRN Reason: Protocol Last Admin: 03/15/17 05:53 Dose: 4 unit Levetiracetam (Keppra) 500 mg PO Q12 [facility] Last Admin: 03/14/17 21:58 Dose: 500 mg Pantoprazole Sodium (Protonix Inj) 40 mg IVP DAILY [facility] Last Admin: 03/14/17 10:25 Dose: 40 mg Phenobarbital (Phenobarbital Inj) 90 mg IV Q8 [facility] Last Admin: 03/15/17 05:48 Dose: 90 mg Potassium Chloride (Potassium Chloride Oral Soln) 20 meq GT ONCE [facility] Last Admin: 03/09/17 13:52 Dose: 20 meq - Labs Labs: 03/15/17 05:43 03/15/17 05:43 PT 13.6 SECONDS (9.7-12.2) H 03/10/17 12:24 INR 1.2 03/10/17 12:24 APTT 32 SECONDS (21-34) 03/10/17 12:24 - Constitutional Appears: Chronically Ill - Head Exam Head Exam: ATRAUMATIC, NORMAL INSPECTION - Neck Exam Neck Exam: Normal Inspection. absent: Tenderness - Cardiovascular Exam Cardiovascular Exam: REGULAR RHYTHM, +S1 - GI/Abdominal Exam GI & Abdominal Exam: Soft. absent: Tenderness - Extremities Exam Extremities Exam: Normal Inspection. absent: Tenderness - Neurological Exam Neurological Exam: Altered, Motor Sensory Deficit - Skin Skin Exam: Dry, Warm Assessment and Plan (1) SAUNDRA (acute kidney injury) Status: Resolved (2) CHF (congestive heart failure) Status: Acute (3) Cardiac arrest Status: Acute (4) Open wound of right foot with complication Status: Acute (5) Respiratory failure Status: Acute - Assessment and Plan (Free Text) Plan: Continue supportive measures Monitor lytes Await family decision about further management
[2017-03-15] MEDS: levETIRAcetam 100 mg/ml (5ml) Oral Syringe PO SCH ×2 (10:08→21:35)
[2017-03-15] MEDS: Collagenase 250 Units/gm Ointment(30 gm) TOP SCH (10:09)
[2017-03-15] MEDS: Azithromycin 500 MG in Sodium Chloride 0.9% 250 ML IVPB SCH (10:11)
[2017-03-15] MEDS ORDERED: Amikacin 1000 mg/4 ml Inj IVPB SCH (11:30)
--- NOTE | 2017-03-15 13:52 | PN ---
DATE: LOCATION: ICU 17. SUBJECTIVE: This is a 52-year-old male seen and examined in rounds today without significant clinical changes, is still intubated, less responding to verbal or painful stimuli. The entire chart is reviewed including, but not limited to the most recent lab and the radiology study results, current and the previous medication list, and current and previous medical events. Today's chest x-ray report is seen with evidence also of moderate venous congestion and bilateral pleural effusion. White blood cells is 14.0, hemoglobin 10.8, hematocrit 33.1, with normal platelet count and abnormal ABGs with increased blood glucose level 242, BUN elevated to 48, creatinine 2.4 with magnesium elevated to 2.4, with low albumin of 3.4. PHYSICAL EXAMINATION GENERAL: Showed no significant clinical changes today and the patient is stable on vent, unresponsive. VITAL SIGNS: Pulse of 86, low grade temperature of 99.5, blood pressure 128/70. HEENT: NG tube is in place. IMPRESSION: 1. Status post cardiac arrest. 2. Acute renal failure, somewhat improving. 3. Respiratory failure, pneumonia, pleural effusion. The patient is intubated to vent. 4. Reported open wound of the right foot with complications. 5. Anemia most likely secondary to above. 6. Poorly controlled diabetes mellitus. SUGGESTIONS: 1. Continue current management. 2. The patient to have PEG insertion upon receiving an official legal consent from the family. Otherwise, close observation to follow. Yola Sim MD cc: Yola Sim MD Patient chart
[2017-03-15] MEDS: AMIKACIN SULFATE IVPB SCH (14:22)
[2017-03-15] MEDS: SODIUM CHLORIDE 0.9% IVPB SCH (14:22)
--- NOTE | 2017-03-15 18:34 | CP.PCM.PN ---
Subjective - Date & Time of Evaluation Date of Evaluation: 03/15/17 Time of Evaluation: 07:00 - Subjective Subjective: IV rx in progress Pseudomonas from herbie aspirate on amikacin Objective - Vital Signs/Intake and Output Vital Signs (last 24 hours): Temp Pulse Resp BP Pulse Ox 98.7 F 91 H 21 108/58 L 99 03/15/17 16:00 03/15/17 18:00 03/15/17 18:00 03/15/17 18:00 03/15/17 18:00 Intake and Output: 03/15/17 03/15/17 06:59 18:59 Intake Total 755 735 Output Total 945 Balance -190 735 - Medications Medications: Current Medications Acetaminophen (Tylenol 650mg/20.3ml Solution Ud) 650 mg PO Q4 PRN PRN Reason: temp >101 Last Admin: 03/14/17 21:58 Dose: 650 mg Albuterol/Ipratropium (Duoneb 3 Mg/0.5 Mg (3 Ml) Ud) 3 ml INH RQ6 TENA Last Admin: 03/15/17 13:52 Dose: 3 ml Artificial Tears (Lacri-Lube) 0 gm OS Q4H PRN PRN Reason: Other Last Admin: 03/14/17 22:04 Dose: 1 gm Calcium Acetate (Phoslo) 667 mg GT TIDCC [facility] Last Admin: 03/15/17 17:28 Dose: 667 mg Collagenase (Santyl) 0 gm TOP DAILY TENA Last Admin: 03/15/17 10:09 Dose: 1 applic Heparin Sodium (Porcine) (Heparin) 5,000 units SC Q12 TENA Last Admin: 03/15/17 10:09 Dose: 5,000 units Cefepime HCl (Maxipime Iv 2 Gm Premix) 2 gm in 100 mls @ 100 mls/hr IVPB Q12H TENA Last Admin: 03/15/17 17:28 Dose: 100 mls/hr Amikacin Sulfate 1,065 mg/ (Sodium Chloride) 254.26 mls @ 254.26 mls/hr IVPB Q48H TENA Last Admin: 03/15/17 14:22 Dose: 254.26 mls/hr Insulin Human Regular (Novolin R) 0 unit SC Q6 TENA PRN Reason: Protocol Last Admin: 03/15/17 17:35 Dose: 4 unit Levetiracetam (Keppra) 500 mg PO Q12 [facility] Last Admin: 03/15/17 10:08 Dose: 500 mg Pantoprazole Sodium (Protonix Inj) 40 mg IVP DAILY [facility] Last Admin: 03/15/17 10:08 Dose: 40 mg Phenobarbital (Phenobarbital Inj) 90 mg IV Q8 [facility] Last Admin: 03/15/17 14:27 Dose: 90 mg Potassium Chloride (Potassium Chloride Oral Soln) 20 meq GT ONCE [facility] Last Admin: 03/09/17 13:52 Dose: 20 meq - Labs Labs: 03/15/17 05:43 03/15/17 05:43 PT 13.6 SECONDS (9.7-12.2) H 03/10/17 12:24 INR 1.2 03/10/17 12:24 APTT 32 SECONDS (21-34) 03/10/17 12:24 - Constitutional Appears: Confused, Chronically Ill - Head Exam Head Exam: NORMOCEPHALIC - Eye Exam Eye Exam: absent: Scleral icterus - ENT Exam ENT Exam: Mucous Membranes Dry - Neck Exam Neck Exam: absent: Lymphadenopathy - Respiratory Exam Respiratory Exam: Decreased Breath Sounds - Cardiovascular Exam Cardiovascular Exam: REGULAR RHYTHM - GI/Abdominal Exam GI & Abdominal Exam: Distended - Rectal Exam Rectal Exam: Deferred - Exam Exam: NORMAL INSPECTION - Back Exam Back Exam: absent: CVA tenderness (L), CVA tenderness (R) - Neurological Exam Neurological Exam: Altered Assessment and Plan (1) Cardiac arrest Status: Acute (2) Open wound of right foot with complication Status: Acute (3) Respiratory failure Status: Acute - Assessment and Plan (Free Text) Assessment: coma s/p cardiac arrest IV rx in progress for pneumonia poor prognosis from outset
--- NOTE | 2017-03-15 19:07 | CP.CCUPN ---
<Temi Rosales - Last Filed: 03/15/17 19:04> CCU Subjective - Physician Review Subjective (Free Text): Patient seen and examined at bedside. ROS unobtainable due to patient's current clinical status. Family still unsure of goals of care. 03/15/17 19:07 CCU Objective - Vital Signs / Intake & Output Vital Signs (Last 4 hours): Vital Signs Temp Pulse Resp BP Pulse Ox 03/15/17 18:00 91 H 21 108/58 L 99 03/15/17 17:00 89 19 115/87 100 03/15/17 16:00 98.7 F 82 21 106/58 L 100 Intake and Output (Last 8hrs): Intake & Output 03/15/17 03/15/17 03/15/17 06:59 14:59 22:59 Intake Total 615 495 240 Output Total 445 Balance 170 495 240 Weight 156 lb 4.924 oz Intake: Intake, IV Amount 100 250 Left Hand 100 250 Tube Feeding 315 245 140 Other 200 100 Output: Urine 445 Urethral (Gipson) 445 - Physical Exam Head: Positive for: Atraumatic, Normocephalic Mouth: Positive for: Moist Mucous Membranes Respiratory/Chest: Positive for: Rales Cardiovascular: Positive for: Regular Rate and Rhythm, Normal S1, S2 Abdomen: Negative for: Distention Lower Extremity: Positive for: Other (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 Negative for: Alert, Oriented x 3 - Medications Active Medications: Active Medications Generic Name Dose Route Start Last Admin Trade Name Freq PRN Reason Stop Dose Admin Acetaminophen 650 mg 03/05/17 22:55 03/14/17 21:58 Tylenol 650mg/20.3ml Solution Ud PO 650 mg Q4 PRN Administration temp >101 Albuterol/Ipratropium 3 ml 03/10/17 20:00 03/15/17 13:52 Duoneb 3 Mg/0.5 Mg (3 Ml) Ud INH 3 ml RQ6 TENA Administration Artificial Tears 0 gm 03/06/17 10:04 03/14/17 22:04 Lacri-Lube OS 1 gm Q4H PRN Administration Other Calcium Acetate 667 mg 03/08/17 10:00 03/15/17 17:28 Phoslo GT 667 mg TIDCC TENA Administration Collagenase 0 gm 03/10/17 10:00 03/15/17 10:09 Santyl TOP 1 applic DAILY TENA Administration Heparin Sodium (Porcine) 5,000 units 03/14/17 22:00 03/15/17 10:09 Heparin SC 5,000 units Q12 TENA Administration Cefepime HCl 2 gm in 100 mls @ 100 mls/hr 03/13/17 18:00 03/15/17 17:28 Maxipime Iv 2 Gm Premix IVPB 100 mls/hr Q12H TENA Administration Amikacin Sulfate 1,065 mg/ 254.26 mls @ 254.26 mls/hr 03/15/17 13:00 14:22 Sodium Chloride IVPB 254.26 mls/hr Q48H TENA Administration Insulin Human Regular 0 unit 03/14/17 00:00 03/15/17 17:35 Novolin R SC 4 unit Q6 TENA Administration Protocol Levetiracetam 500 mg 03/14/17 22:00 03/15/17 10:08 Keppra PO 500 mg Q12 TENA Administration Pantoprazole Sodium 40 mg 03/05/17 10:00 03/15/17 10:08 Protonix Inj IVP 40 mg DAILY TENA Administration Phenobarbital 90 mg 03/10/17 06:00 03/15/17 14:27 Phenobarbital Inj IV 90 mg Q8 TENA Administration Potassium Chloride 20 meq 03/09/17 13:15 03/09/17 13:52 Potassium Chloride Oral Soln GT 20 meq ONCE TENA Administration - Patient Studies Lab Studies: Microbiology Studies 03/13/17 17:00 Blood Culture - Preliminary Blood NO GROWTH AFTER 48 HOURS 03/13/17 17:00 Blood Culture - Preliminary Blood NO GROWTH AFTER 48 HOURS 03/13/17 17:00 Gram Stain - Final Trachasp Sputum Culture - Preliminary Pseudomonas Aeruginosa 03/13/17 17:00 Urine Culture - Final Urine,Catheterized No Growth (<1,000 CFU/ML) Lab Studies 03/15/17 03/15/17 03/15/17 Range/Units 17:34 11:25 05:46 WBC (4.8-10.8) K/uL RBC (4.40-5.90) Mil/uL Hgb (12.0-18.0) g/dL Hct (35.0-51.0) % MCV (80.0-94.0) fL MCH (27.0-31.0) pg MCHC (33.0-37.0) g/dL RDW (11.5-14.5) % Plt Count (130-400) K/uL MPV (7.2-11.7) fL Neut % (Auto) (50.0-75.0) % Lymph % (Auto) (20.0-40.0) % Rogers % (Auto) (0.0-10.0) % Eos % (Auto) (0.0-4.0) % Baso % (Auto) (0.0-2.0) % Neut # (1.8-7.0) K/uL Lymph # (1.0-4.3) K/uL Rogers # (0.0-0.8) K/uL Eos # (0.0-0.7) K/uL Baso # (0.0-0.2) K/uL Neutrophils % (Manual) (50-75) % Band Neutrophils % (0-2) % Lymphocytes % (Manual) (20-40) % Monocytes % (Manual) (0-10) % Eosinophils % (Manual) (0-4) % Platelet Estimate (NORMAL) Anisocytosis (manual) Puncture Site pCO2 (35-45) mm/Hg pO2 (80-100) mm/Hg HCO3 (21-28) mmol/L ABG pH (7.35-7.45) ABG Total CO2 (22-28) mmol/L ABG O2 Saturation (95-98) % ABG Base Excess (-2.0-3.0) mmol/L ABG Hemoglobin (11.7-17.4) g/dL ABG Carboxyhemoglobin (0.5-1.5) % POC ABG HHb (Measured) (0.0-5.0) % ABG Methemoglobin (0.0-3.0) % Reji Test A-a O2 Difference mm/Hg Respiratory Index Hgb O2 Saturation (95.0-98.0) % Vent Mode Mechanical Rate FiO2 % Tidal Volume PEEP Sodium (132-148) mmol/L Potassium (3.6-5.2) mmol/L Chloride (98-107) mmol/L Carbon Dioxide (22-30) mmol/L Anion Gap (10-20) BUN (9-20) mg/dL Creatinine (0.8-1.5) mg/dL Est GFR ( Amer) Est GFR (Non-Af Amer) POC Glucose (mg/dL) 206 H 242 H 243 H (65-110) mg/dL Random Glucose (75-110) mg/dL Calcium (8.6-10.4) mg/dl Phosphorus (2.5-4.5) mg/dL Magnesium (1.6-2.3) mg/dL Total Bilirubin (0.2-1.3) mg/dL AST (17-59) U/L ALT (21-72) U/L Alkaline Phosphatase (38-126) U/L Total Protein (6.3-8.3) g/dL Albumin (3.5-5.0) g/dL Globulin (2.2-3.9) gm/dL Albumin/Globulin Ratio (1.0-2.1) [place]/Lambda Light Chain 03/15/17 03/15/17 03/15/17 Range/Units 05:43 05:43 05:04 WBC 14.0 H (4.8-10.8) K/uL RBC 3.63 L (4.40-5.90) Mil/uL Hgb 10.8 L (12.0-18.0) g/dL Hct 33.1 L (35.0-51.0) % MCV 91.3 (80.0-94.0) fL MCH 29.8 (27.0-31.0) pg MCHC 32.7 L (33.0-37.0) g/dL RDW 15.5 H (11.5-14.5) % Plt Count 205 (130-400) K/uL MPV 10.7 (7.2-11.7) fL Neut % (Auto) 82.2 H (50.0-75.0) % Lymph % (Auto) 9.9 L (20.0-40.0) % Rogers % (Auto) 5.7 (0.0-10.0) % Eos % (Auto) 1.7 (0.0-4.0) % Baso % (Auto) 0.5 (0.0-2.0) % Neut # 11.6 H (1.8-7.0) K/uL Lymph # 1.4 (1.0-4.3) K/uL Rogers # 0.8 (0.0-0.8) K/uL Eos # 0.2 (0.0-0.7) K/uL Baso # 0.1 (0.0-0.2) K/uL Neutrophils % (Manual) 80 H (50-75) % Band Neutrophils % 5 H (0-2) % Lymphocytes % (Manual) 10 L (20-40) % Monocytes % (Manual) 4 (0-10) % Eosinophils % (Manual) 1 (0-4) % Platelet Estimate Normal (NORMAL) Anisocytosis (manual) Slight Puncture Site Rr pCO2 44 (35-45) mm/Hg pO2 135 H (80-100) mm/Hg HCO3 26.2 (21-28) mmol/L ABG pH 7.40 (7.35-7.45) ABG Total CO2 28.7 H (22-28) mmol/L ABG O2 Saturation 98.9 H (95-98) % ABG Base Excess 1.7 (-2.0-3.0) mmol/L ABG Hemoglobin 22.0 H (11.7-17.4) g/dL ABG Carboxyhemoglobin 1.4 (0.5-1.5) % POC ABG HHb (Measured) 1.1 (0.0-5.0) % ABG Methemoglobin 0.8 (0.0-3.0) % Reji Test Pos A-a O2 Difference 167.0 mm/Hg Respiratory Index 1.2 Hgb O2 Saturation 96.7 (95.0-98.0) % Vent Mode Prvc Mechanical Rate 16 FiO2 50.0 % Tidal Volume 450 PEEP 5 Sodium 147 (132-148) mmol/L Potassium 4.1 (3.6-5.2) mmol/L Chloride 110 H (98-107) mmol/L Carbon Dioxide 27 (22-30) mmol/L Anion Gap 14 (10-20) BUN 48 H (9-20) mg/dL Creatinine 2.4 H (0.8-1.5) mg/dL Est GFR ( Amer) 35 Est GFR (Non-Af Amer) 29 POC Glucose (mg/dL) (65-110) mg/dL Random Glucose 205 H (75-110) mg/dL Calcium 8.6 (8.6-10.4) mg/dl Phosphorus 3.9 (2.5-4.5) mg/dL Magnesium 2.4 H (1.6-2.3) mg/dL Total Bilirubin 0.5 (0.2-1.3) mg/dL AST 50 (17-59) U/L ALT 37 (21-72) U/L Alkaline Phosphatase 100 (38-126) U/L Total Protein 8.2 (6.3-8.3) g/dL Albumin 3.4 L (3.5-5.0) g/dL Globulin 4.8 H (2.2-3.9) gm/dL Albumin/Globulin Ratio 0.7 L (1.0-2.1) [place]/Lambda Light Chain 03/14/17 03/08/17 Range/Units 23:41 08:15 WBC (4.8-10.8) K/uL RBC (4.40-5.90) Mil/uL Hgb (12.0-18.0) g/dL Hct (35.0-51.0) % MCV (80.0-94.0) fL MCH (27.0-31.0) pg MCHC (33.0-37.0) g/dL RDW (11.5-14.5) % Plt Count (130-400) K/uL MPV (7.2-11.7) fL Neut % (Auto) (50.0-75.0) % Lymph % (Auto) (20.0-40.0) % Rogers % (Auto) (0.0-10.0) % Eos % (Auto) (0.0-4.0) % Baso % (Auto) (0.0-2.0) % Neut # (1.8-7.0) K/uL Lymph # (1.0-4.3) K/uL Rogers # (0.0-0.8) K/uL Eos # (0.0-0.7) K/uL Baso # (0.0-0.2) K/uL Neutrophils % (Manual) (50-75) % Band Neutrophils % (0-2) % Lymphocytes % (Manual) (20-40) % Monocytes % (Manual) (0-10) % Eosinophils % (Manual) (0-4) % Platelet Estimate (NORMAL) Anisocytosis (manual) Puncture Site pCO2 (35-45) mm/Hg pO2 (80-100) mm/Hg HCO3 (21-28) mmol/L ABG pH (7.35-7.45) ABG Total CO2 (22-28) mmol/L ABG O2 Saturation (95-98) % ABG Base Excess (-2.0-3.0) mmol/L ABG Hemoglobin (11.7-17.4) g/dL ABG Carboxyhemoglobin (0.5-1.5) % POC ABG HHb (Measured) (0.0-5.0) % ABG Methemoglobin (0.0-3.0) % Reji Test A-a O2 Difference mm/Hg Respiratory Index Hgb O2 Saturation (95.0-98.0) % Vent Mode Mechanical Rate FiO2 % Tidal Volume PEEP Sodium (132-148) mmol/L Potassium (3.6-5.2) mmol/L Chloride (98-107) mmol/L Carbon Dioxide (22-30) mmol/L Anion Gap (10-20) BUN (9-20) mg/dL Creatinine (0.8-1.5) mg/dL Est GFR ( Amer) Est GFR (Non-Af Amer) POC Glucose (mg/dL) 278 H (65-110) mg/dL Random Glucose (75-110) mg/dL Calcium (8.6-10.4) mg/dl Phosphorus (2.5-4.5) mg/dL Magnesium (1.6-2.3) mg/dL Total Bilirubin (0.2-1.3) mg/dL AST (17-59) U/L ALT (21-72) U/L Alkaline Phosphatase (38-126) U/L Total Protein (6.3-8.3) g/dL Albumin (3.5-5.0) g/dL Globulin (2.2-3.9) gm/dL Albumin/Globulin Ratio (1.0-2.1) [place]/Lambda Light Chain see note Laboratory Results - last 24 hr 03/08/17 03/14/17 03/15/17 08:15 23:41 05:04 WBC RBC Hgb Hct MCV MCH MCHC RDW Plt Count MPV Neut % (Auto) Lymph % (Auto) Rogers % (Auto) Eos % (Auto) Baso % (Auto) Neut # Lymph # Rogers # Eos # Baso # Neutrophils % (Manual) Band Neutrophils % Lymphocytes % (Manual) Monocytes % (Manual) Eosinophils % (Manual) Platelet Estimate Anisocytosis (manual) Puncture Site Rr pCO2 44 pO2 135 H HCO3 26.2 ABG pH 7.40 ABG Total CO2 28.7 H ABG O2 Saturation 98.9 H ABG Base Excess 1.7 ABG Hemoglobin 22.0 H ABG Carboxyhemoglobin 1.4 POC ABG HHb (Measured) 1.1 ABG Methemoglobin 0.8 Reji Test Pos A-a O2 Difference 167.0 Respiratory Index 1.2 Hgb O2 Saturation 96.7 Vent Mode Prvc Mechanical Rate 16 FiO2 50.0 Tidal Volume 450 PEEP 5 Sodium Potassium Chloride Carbon Dioxide Anion Gap BUN Creatinine Est GFR ( Amer) Est GFR (Non-Af Amer) POC Glucose (mg/dL) 278 H Random Glucose Calcium Phosphorus Magnesium Total Bilirubin AST ALT Alkaline Phosphatase Total Protein Albumin Globulin Albumin/Globulin Ratio [place]/Lambda Light Chain see note 03/15/17 03/15/17 03/15/17 05:43 05:43 05:46 WBC 14.0 H RBC 3.63 L Hgb 10.8 L Hct 33.1 L MCV 91.3 MCH 29.8 MCHC 32.7 L RDW 15.5 H Plt Count 205 MPV 10.7 Neut % (Auto) 82.2 H Lymph % (Auto) 9.9 L Rogers % (Auto) 5.7 Eos % (Auto) 1.7 Baso % (Auto) 0.5 Neut # 11.6 H Lymph # 1.4 Rogers # 0.8 Eos # 0.2 Baso # 0.1 Neutrophils % (Manual) 80 H Band Neutrophils % 5 H Lymphocytes % (Manual) 10 L Monocytes % (Manual) 4 Eosinophils % (Manual) 1 Platelet Estimate Normal Anisocytosis (manual) Slight Puncture Site pCO2 pO2 HCO3 ABG pH ABG Total CO2 ABG O2 Saturation ABG Base Excess ABG Hemoglobin ABG Carboxyhemoglobin POC ABG HHb (Measured) ABG Methemoglobin Reji Test A-a O2 Difference Respiratory Index Hgb O2 Saturation Vent Mode Mechanical Rate FiO2 Tidal Volume PEEP Sodium 147 Potassium 4.1 Chloride 110 H Carbon Dioxide 27 Anion Gap 14 BUN 48 H Creatinine 2.4 H Est GFR ( Amer) 35 Est GFR (Non-Af Amer) 29 POC Glucose (mg/dL) 243 H Random Glucose 205 H Calcium 8.6 Phosphorus 3.9 Magnesium 2.4 H Total Bilirubin 0.5 AST 50 ALT 37 Alkaline Phosphatase 100 Total Protein 8.2 Albumin 3.4 L Globulin 4.8 H Albumin/Globulin Ratio 0.7 L [place]/Lambda Light Chain 03/15/17 03/15/17 11:25 17:34 WBC RBC Hgb Hct MCV MCH MCHC RDW Plt Count MPV Neut % (Auto) Lymph % (Auto) Rogers % (Auto) Eos % (Auto) Baso % (Auto) Neut # Lymph # Rogers # Eos # Baso # Neutrophils % (Manual) Band Neutrophils % Lymphocytes % (Manual) Monocytes % (Manual) Eosinophils % (Manual) Platelet Estimate Anisocytosis (manual) Puncture Site pCO2 pO2 HCO3 ABG pH ABG Total CO2 ABG O2 Saturation ABG Base Excess ABG Hemoglobin ABG Carboxyhemoglobin POC ABG HHb (Measured) ABG Methemoglobin Reji Test A-a O2 Difference Respiratory Index Hgb O2 Saturation Vent Mode Mechanical Rate FiO2 Tidal Volume PEEP Sodium Potassium Chloride Carbon Dioxide Anion Gap BUN Creatinine Est GFR ( Amer) Est GFR (Non-Af Amer) POC Glucose (mg/dL) 242 H 206 H Random Glucose Calcium Phosphorus Magnesium Total Bilirubin AST ALT Alkaline Phosphatase Total Protein Albumin Globulin Albumin/Globulin Ratio [place]/Lambda Light Chain Fingerstick Blood Sugar Results: 243 Review of Systems - Review of Systems Systems not reviewed;Unavailable: Intubated Assessment/Plan - Assessment and Plan (Free Text) Assessment: 52 y/o M with pmhx of HTN, DM II, kidney disease, who was brought to the ED after he collapsed in ED at home and was found in asystole. Patient given 3 doses of epi and CPR for 15 minutes then ROSC. Patient intubated in the field. Patient went into cardiac arrest twice more in the ICU. Plan: Neuro: Intubated, altered mental status (no improvement) Medication and Management: * Ativan 1 mg q2h PRN seizure activity * Keppra 500 mg q12h * Phenobarbital 90 mg IV Q8 * Dr. Rascon consulted, help appreciated Imaging: (03/08) Blood flow study - criteria for brain not established on the current examination Head CT (03/04): chronic microvascular ischemic changes, no acute intracranial hemorrhage EEG (03/05/17): periodic paroxysmal activities lasting about 2-3 seconds with intermittent burst suppression suggestive of status epileptiform activities. Head CT (03/06/17): nonspecific white matter changes Pulm: Respiratory distress secondary to cardiac arrest Medication and Management * Patient intubated * Lasix d/c * gipson to measure urine output * Propofol 5mcg/kg/min * Duonebs prn Imaging: Chest X-ray (03/07/17): Minimal left pleural effusion, CHF improving Cardio: s/p cardiac arrest Medication and management: * Off of pressers * Dr. Tate consulted, help appreciated * Echo (03/04/17): LVEF:42, mild to moderate LV systolic dysfunction. Normal chamber size. Trace MR and TR. Trace pericardial effusion. Pleural effusion. Heme: anemia Medication and management: * 03/13: Hgb 10.3 * 03/12 Hgb 8.6 - continue to monitor and transfuse as needed * 03/06/17: HgB/Hct: 7/20.6, transfused 2 u PRBCs * 03/07/17: HgB/ Hct: 9.6/28.2 * Dr. Rubio consulted help appreciated -> monoclonal protein detected Endo: DM II Medication and management: * Regular ISS- increased to high on 03/08 * accucheck q6h * HgA1C: 9.4 Renal: SAUNDRA - table Medication and management: * Lasix d/c on 03/08 * f/u recommendation as per Dr. Charles - monitor lytes * monitor K level and replaced as necessary * BUN/CR 45/2.5 * Phoslo 667mg GT TIDCC MSK: right foot wound secondary to first metatarsal amputation Medication and management: * Wound care - Right foot dressed with Santyl,DSD * Dr. Guzman, podiatry, consulted- help appreciated ID: Medication and management: * MRSA in nose * Urine culture (-) 03/04 * blood culture (-) 03/04 * 03/13: Sputum: pseudomonas aeruginosa * Amikacin 1065mg q48h (renal dosing) - sensitive * Cefemine IV @ gram IVPB Q12 * Azithromycin 250mg IVPB daily - started 03/11 stopped on 03/15 * Dr. Shore consulted, help appreciated Prophylaxis: DVT: Heparin 5,000 u sc Q12 hours GI: Protonix 40 mg IVP daily glucerna feeds at 35ml/hr, 100 cc free water flushes q6h Prognosis is very poor. Family still discussing code status, all are not in agreement of a decision. <Fabrice Feliciano M - Last Filed: 03/15/17 19:56> CCU Objective - Vital Signs / Intake & Output Vital Signs (Last 4 hours): Vital Signs Temp Pulse Resp BP Pulse Ox 03/15/17 19:00 92 H 22 91/50 L 100 03/15/17 18:00 91 H 21 108/58 L 99 03/15/17 17:00 89 19 115/87 100 03/15/17 16:00 98.7 F 82 21 106/58 L 100 Intake and Output (Last 8hrs): Intake & Output 03/15/17 03/15/17 03/15/17 06:59 14:59 22:59 Intake Total 615 495 310 Output Total 445 670 510 Balance 170 -175 -200 Weight 156 lb 4.924 oz Intake: Intake, IV Amount 100 250 Left Hand 100 250 Tube Feeding 315 245 210 Other 200 100 Output: Urine 445 670 510 Urethral (Gipson) 445 670 510 - Medications Active Medications: Active Medications Generic Name Dose Route Start Last Admin Trade Name Freq PRN Reason Stop Dose Admin Acetaminophen 650 mg 03/05/17 22:55 03/14/17 21:58 Tylenol 650mg/20.3ml Solution Ud PO 650 mg Q4 PRN Administration temp >101 Albuterol/Ipratropium 3 ml 03/10/17 20:00 03/15/17 19:27 Duoneb 3 Mg/0.5 Mg (3 Ml) Ud INH 3 ml RQ6 TENA Administration Artificial Tears 0 gm 03/06/17 10:04 03/14/17 22:04 Lacri-Lube OS 1 gm Q4H PRN Administration Other Calcium Acetate 667 mg 03/08/17 10:00 03/15/17 17:28 Phoslo GT 667 mg TIDCC TENA Administration Collagenase 0 gm 10/28/17 10:00 03/15/17 10:09 Santyl TOP 1 applic DAILY TENA Administration Heparin Sodium (Porcine) 5,000 units 03/14/17 22:00 03/15/17 10:09 Heparin SC 5,000 units Q12 TENA Administration Cefepime HCl 2 gm in 100 mls @ 100 mls/hr 03/13/17 18:00 03/15/17 17:28 Maxipime Iv 2 Gm Premix IVPB 100 mls/hr Q12H TENA Administration Amikacin Sulfate 1,065 mg/ 254.26 mls @ 254.26 mls/hr 03/15/17 13:00 14:22 Sodium Chloride IVPB 254.26 mls/hr Q48H TENA Administration Insulin Human Regular 0 unit 03/14/17 00:00 03/15/17 17:35 Novolin R SC 4 unit Q6 TENA Administration Protocol Levetiracetam 500 mg 03/14/17 22:00 03/15/17 10:08 Keppra PO 500 mg Q12 TENA Administration Pantoprazole Sodium 40 mg 03/05/17 10:00 03/15/17 10:08 Protonix Inj IVP 40 mg DAILY TENA Administration Phenobarbital 90 mg 03/10/17 06:00 03/15/17 14:27 Phenobarbital Inj IV 90 mg Q8 TENA Administration Potassium Chloride 20 meq 03/09/17 13:15 03/09/17 13:52 Potassium Chloride Oral Soln GT 20 meq ONCE TENA Administration - Patient Studies Lab Studies: Microbiology Studies 03/13/17 17:00 Blood Culture - Preliminary Blood NO GROWTH AFTER 48 HOURS 03/13/17 17:00 Blood Culture - Preliminary Blood NO GROWTH AFTER 48 HOURS 03/13/17 17:00 Gram Stain - Final Trachasp Sputum Culture - Preliminary Pseudomonas Aeruginosa 03/13/17 17:00 Urine Culture - Final Urine,Catheterized No Growth (<1,000 CFU/ML) Lab Studies 03/15/17 03/15/17 03/15/17 Range/Units 17:34 11:25 05:46 WBC (4.8-10.8) K/uL RBC (4.40-5.90) Mil/uL Hgb (12.0-18.0) g/dL Hct (35.0-51.0) % MCV (80.0-94.0) fL MCH (27.0-31.0) pg MCHC (33.0-37.0) g/dL RDW (11.5-14.5) % Plt Count (130-400) K/uL MPV (7.2-11.7) fL Neut % (Auto) (50.0-75.0) % Lymph % (Auto) (20.0-40.0) % Rogers % (Auto) (0.0-10.0) % Eos % (Auto) (0.0-4.0) % Baso % (Auto) (0.0-2.0) % Neut # (1.8-7.0) K/uL Lymph # (1.0-4.3) K/uL Rogers # (0.0-0.8) K/uL Eos # (0.0-0.7) K/uL Baso # (0.0-0.2) K/uL Neutrophils % (Manual) (50-75) % Band Neutrophils % (0-2) % Lymphocytes % (Manual) (20-40) % Monocytes % (Manual) (0-10) % Eosinophils % (Manual) (0-4) % Platelet Estimate (NORMAL) Anisocytosis (manual) Puncture Site pCO2 (35-45) mm/Hg pO2 (80-100) mm/Hg HCO3 (21-28) mmol/L ABG pH (7.35-7.45) ABG Total CO2 (22-28) mmol/L ABG O2 Saturation (95-98) % ABG Base Excess (-2.0-3.0) mmol/L ABG Hemoglobin (11.7-17.4) g/dL ABG Carboxyhemoglobin (0.5-1.5) % POC ABG HHb (Measured) (0.0-5.0) % ABG Methemoglobin (0.0-3.0) % Reji Test A-a O2 Difference mm/Hg Respiratory Index Hgb O2 Saturation (95.0-98.0) % Vent Mode Mechanical Rate FiO2 % Tidal Volume PEEP Sodium (132-148) mmol/L Potassium (3.6-5.2) mmol/L Chloride (98-107) mmol/L Carbon Dioxide (22-30) mmol/L Anion Gap (10-20) BUN (9-20) mg/dL Creatinine (0.8-1.5) mg/dL Est GFR ( Amer) Est GFR (Non-Af Amer) POC Glucose (mg/dL) 206 H 242 H 243 H (65-110) mg/dL Random Glucose (75-110) mg/dL Calcium (8.6-10.4) mg/dl Phosphorus (2.5-4.5) mg/dL Magnesium (1.6-2.3) mg/dL Total Bilirubin (0.2-1.3) mg/dL AST (17-59) U/L ALT (21-72) U/L Alkaline Phosphatase (38-126) U/L Total Protein (6.3-8.3) g/dL Albumin (3.5-5.0) g/dL Globulin (2.2-3.9) gm/dL Albumin/Globulin Ratio (1.0-2.1) [place]/Lambda Light Chain 03/15/17 03/15/17 03/15/17 Range/Units 05:43 05:43 05:04 WBC 14.0 H (4.8-10.8) K/uL RBC 3.63 L (4.40-5.90) Mil/uL Hgb 10.8 L (12.0-18.0) g/dL Hct 33.1 L (35.0-51.0) % MCV 91.3 (80.0-94.0) fL MCH 29.8 (27.0-31.0) pg MCHC 32.7 L (33.0-37.0) g/dL RDW 15.5 H (11.5-14.5) % Plt Count 205 (130-400) K/uL MPV 10.7 (7.2-11.7) fL Neut % (Auto) 82.2 H (50.0-75.0) % Lymph % (Auto) 9.9 L (20.0-40.0) % Rogers % (Auto) 5.7 (0.0-10.0) % Eos % (Auto) 1.7 (0.0-4.0) % Baso % (Auto) 0.5 (0.0-2.0) % Neut # 11.6 H (1.8-7.0) K/uL Lymph # 1.4 (1.0-4.3) K/uL Rogers # 0.8 (0.0-0.8) K/uL Eos # 0.2 (0.0-0.7) K/uL Baso # 0.1 (0.0-0.2) K/uL Neutrophils % (Manual) 80 H (50-75) % Band Neutrophils % 5 H (0-2) % Lymphocytes % (Manual) 10 L (20-40) % Monocytes % (Manual) 4 (0-10) % Eosinophils % (Manual) 1 (0-4) % Platelet Estimate Normal (NORMAL) Anisocytosis (manual) Slight Puncture Site Rr pCO2 44 (35-45) mm/Hg pO2 135 H (80-100) mm/Hg HCO3 26.2 (21-28) mmol/L ABG pH 7.40 (7.35-7.45) ABG Total CO2 28.7 H (22-28) mmol/L ABG O2 Saturation 98.9 H (95-98) % ABG Base Excess 1.7 (-2.0-3.0) mmol/L ABG Hemoglobin 22.0 H (11.7-17.4) g/dL ABG Carboxyhemoglobin 1.4 (0.5-1.5) % POC ABG HHb (Measured) 1.1 (0.0-5.0) % ABG Methemoglobin 0.8 (0.0-3.0) % Reji Test Pos A-a O2 Difference 167.0 mm/Hg Respiratory Index 1.2 Hgb O2 Saturation 96.7 (95.0-98.0) % Vent Mode Prvc Mechanical Rate 16 FiO2 50.0 % Tidal Volume 450 PEEP 5 Sodium 147 (132-148) mmol/L Potassium 4.1 (3.6-5.2) mmol/L Chloride 110 H (98-107) mmol/L Carbon Dioxide 27 (22-30) mmol/L Anion Gap 14 (10-20) BUN 48 H (9-20) mg/dL Creatinine 2.4 H (0.8-1.5) mg/dL Est GFR ( Amer) 35 Est GFR (Non-Af Amer) 29 POC Glucose (mg/dL) (65-110) mg/dL Random Glucose 205 H (75-110) mg/dL Calcium 8.6 (8.6-10.4) mg/dl Phosphorus 3.9 (2.5-4.5) mg/dL Magnesium 2.4 H (1.6-2.3) mg/dL Total Bilirubin 0.5 (0.2-1.3) mg/dL AST 50 (17-59) U/L ALT 37 (21-72) U/L Alkaline Phosphatase 100 (38-126) U/L Total Protein 8.2 (6.3-8.3) g/dL Albumin 3.4 L (3.5-5.0) g/dL Globulin 4.8 H (2.2-3.9) gm/dL Albumin/Globulin Ratio 0.7 L (1.0-2.1) [place]/Lambda Light Chain 03/14/17 03/08/17 Range/Units 23:41 08:15 WBC (4.8-10.8) K/uL RBC (4.40-5.90) Mil/uL Hgb (12.0-18.0) g/dL Hct (35.0-51.0) % MCV (80.0-94.0) fL MCH (27.0-31.0) pg MCHC (33.0-37.0) g/dL RDW (11.5-14.5) % Plt Count (130-400) K/uL MPV (7.2-11.7) fL Neut % (Auto) (50.0-75.0) % Lymph % (Auto) (20.0-40.0) % Rogers % (Auto) (0.0-10.0) % Eos % (Auto) (0.0-4.0) % Baso % (Auto) (0.0-2.0) % Neut # (1.8-7.0) K/uL Lymph # (1.0-4.3) K/uL Rogers # (0.0-0.8) K/uL Eos # (0.0-0.7) K/uL Baso # (0.0-0.2) K/uL Neutrophils % (Manual) (50-75) % Band Neutrophils % (0-2) % Lymphocytes % (Manual) (20-40) % Monocytes % (Manual) (0-10) % Eosinophils % (Manual) (0-4) % Platelet Estimate (NORMAL) Anisocytosis (manual) Puncture Site pCO2 (35-45) mm/Hg pO2 (80-100) mm/Hg HCO3 (21-28) mmol/L ABG pH (7.35-7.45) ABG Total CO2 (22-28) mmol/L ABG O2 Saturation (95-98) % ABG Base Excess (-2.0-3.0) mmol/L ABG Hemoglobin (11.7-17.4) g/dL ABG Carboxyhemoglobin (0.5-1.5) % POC ABG HHb (Measured) (0.0-5.0) % ABG Methemoglobin (0.0-3.0) % Reji Test A-a O2 Difference mm/Hg Respiratory Index Hgb O2 Saturation (95.0-98.0) % Vent Mode Mechanical Rate FiO2 % Tidal Volume PEEP Sodium (132-148) mmol/L Potassium (3.6-5.2) mmol/L Chloride (98-107) mmol/L Carbon Dioxide (22-30) mmol/L Anion Gap (10-20) BUN (9-20) mg/dL Creatinine (0.8-1.5) mg/dL Est GFR ( Amer) Est GFR (Non-Af Amer) POC Glucose (mg/dL) 278 H (65-110) mg/dL Random Glucose (75-110) mg/dL Calcium (8.6-10.4) mg/dl Phosphorus (2.5-4.5) mg/dL Magnesium (1.6-2.3) mg/dL Total Bilirubin (0.2-1.3) mg/dL AST (17-59) U/L ALT (21-72) U/L Alkaline Phosphatase (38-126) U/L Total Protein (6.3-8.3) g/dL Albumin (3.5-5.0) g/dL Globulin (2.2-3.9) gm/dL Albumin/Globulin Ratio (1.0-2.1) [place]/Lambda Light Chain see note Laboratory Results - last 24 hr 03/08/17 03/14/17 03/15/17 08:15 23:41 05:04 WBC RBC Hgb Hct MCV MCH MCHC RDW Plt Count MPV Neut % (Auto) Lymph % (Auto) Rogers % (Auto) Eos % (Auto) Baso % (Auto) Neut # Lymph # Rogers # Eos # Baso # Neutrophils % (Manual) Band Neutrophils % Lymphocytes % (Manual) Monocytes % (Manual) Eosinophils % (Manual) Platelet Estimate Anisocytosis (manual) Puncture Site Rr pCO2 44 pO2 135 H HCO3 26.2 ABG pH 7.40 ABG Total CO2 28.7 H ABG O2 Saturation 98.9 H ABG Base Excess 1.7 ABG Hemoglobin 22.0 H ABG Carboxyhemoglobin 1.4 POC ABG HHb (Measured) 1.1 ABG Methemoglobin 0.8 Reji Test Pos A-a O2 Difference 167.0 Respiratory Index 1.2 Hgb O2 Saturation 96.7 Vent Mode Prvc Mechanical Rate 16 FiO2 50.0 Tidal Volume 450 PEEP 5 Sodium Potassium Chloride Carbon Dioxide Anion Gap BUN Creatinine Est GFR ( Amer) Est GFR (Non-Af Amer) POC Glucose (mg/dL) 278 H Random Glucose Calcium Phosphorus Magnesium Total Bilirubin AST ALT Alkaline Phosphatase Total Protein Albumin Globulin Albumin/Globulin Ratio [place]/Lambda Light Chain see note 03/15/17 03/15/17 03/15/17 05:43 05:43 05:46 WBC 14.0 H RBC 3.63 L Hgb 10.8 L Hct 33.1 L MCV 91.3 MCH 29.8 MCHC 32.7 L RDW 15.5 H Plt Count 205 MPV 10.7 Neut % (Auto) 82.2 H Lymph % (Auto) 9.9 L Rogers % (Auto) 5.7 Eos % (Auto) 1.7 Baso % (Auto) 0.5 Neut # 11.6 H Lymph # 1.4 Rogers # 0.8 Eos # 0.2 Baso # 0.1 Neutrophils % (Manual) 80 H Band Neutrophils % 5 H Lymphocytes % (Manual) 10 L Monocytes % (Manual) 4 Eosinophils % (Manual) 1 Platelet Estimate Normal Anisocytosis (manual) Slight Puncture Site pCO2 pO2 HCO3 ABG pH ABG Total CO2 ABG O2 Saturation ABG Base Excess ABG Hemoglobin ABG Carboxyhemoglobin POC ABG HHb (Measured) ABG Methemoglobin Reji Test A-a O2 Difference Respiratory Index Hgb O2 Saturation Vent Mode Mechanical Rate FiO2 Tidal Volume PEEP Sodium 147 Potassium 4.1 Chloride 110 H Carbon Dioxide 27 Anion Gap 14 BUN 48 H Creatinine 2.4 H Est GFR ( Amer) 35 Est GFR (Non-Af Amer) 29 POC Glucose (mg/dL) 243 H Random Glucose 205 H Calcium 8.6 Phosphorus 3.9 Magnesium 2.4 H Total Bilirubin 0.5 AST 50 ALT 37 Alkaline Phosphatase 100 Total Protein 8.2 Albumin 3.4 L Globulin 4.8 H Albumin/Globulin Ratio 0.7 L [place]/Lambda Light Chain 03/15/17 03/15/17 11:25 17:34 WBC RBC Hgb Hct MCV MCH MCHC RDW Plt Count MPV Neut % (Auto) Lymph % (Auto) Rogers % (Auto) Eos % (Auto) Baso % (Auto) Neut # Lymph # Rogers # Eos # Baso # Neutrophils % (Manual) Band Neutrophils % Lymphocytes % (Manual) Monocytes % (Manual) Eosinophils % (Manual) Platelet Estimate Anisocytosis (manual) Puncture Site pCO2 pO2 HCO3 ABG pH ABG Total CO2 ABG O2 Saturation ABG Base Excess ABG Hemoglobin ABG Carboxyhemoglobin POC ABG HHb (Measured) ABG Methemoglobin Erji Test A-a O2 Difference Respiratory Index Hgb O2 Saturation Vent Mode Mechanical Rate FiO2 Tidal Volume PEEP Sodium Potassium Chloride Carbon Dioxide Anion Gap BUN Creatinine Est GFR ( Amer) Est GFR (Non-Af Amer) POC Glucose (mg/dL) 242 H 206 H Random Glucose Calcium Phosphorus Magnesium Total Bilirubin AST ALT Alkaline Phosphatase Total Protein Albumin Globulin Albumin/Globulin Ratio [place]/Lambda Light Chain Attending/Attestation - Attestation I have personally seen and examined this patient.: Yes I have fully participated in the care of the patient.: Yes I have reviewed all pertinent clinical information: Yes Notes (Text): 03/15/17 19:56 Today: March The Patient was seen and examined at the bedside, Medical records reviewed, and management issues were discussed and formulated with the house staff. I have reviewed all the relevant clinical, laboratory, hemodynamic, radiographic data and medications Events reviewed Pain issues, skin care, head of the bed elevation, glycemic control were addressed. I concur with resident's assessment and plan of care as transcribed in Dr. Rosales note.
[2017-03-15] MEDS: White Petrolatum/Mineral Oil Ophth Oint(3.5 gm) OS PRN (21:45)
--- NOTE | 2017-03-15 21:55 | CP.PCM.PN ---
Subjective - Date & Time of Evaluation Date of Evaluation: 03/15/17 Time of Evaluation: 13:20 - Subjective Subjective: Vented Objective - Vital Signs/Intake and Output Vital Signs (last 24 hours): Temp Pulse Resp BP Pulse Ox 101 F H 98 H 19 131/64 100 03/15/17 20:00 03/15/17 20:00 03/15/17 20:00 03/15/17 20:00 03/15/17 20:00 Intake and Output: 03/15/17 03/16/17 18:59 06:59 Intake Total 735 70 Output Total 1055 125 Balance -320 -55 - Medications Medications: Current Medications Acetaminophen (Tylenol 650mg/20.3ml Solution Ud) 650 mg PO Q4 PRN PRN Reason: temp >101 Last Admin: 03/14/17 21:58 Dose: 650 mg Albuterol/Ipratropium (Duoneb 3 Mg/0.5 Mg (3 Ml) Ud) 3 ml INH RQ6 TENA Last Admin: 03/15/17 19:27 Dose: 3 ml Artificial Tears (Lacri-Lube) 0 gm OS Q4H PRN PRN Reason: Other Last Admin: 03/15/17 21:45 Dose: 1 gm Calcium Acetate (Phoslo) 667 mg GT TIDCC [facility] Last Admin: 03/15/17 17:28 Dose: 667 mg Collagenase (Santyl) 0 gm TOP DAILY [facility] Last Admin: 03/15/17 10:09 Dose: 1 applic Heparin Sodium (Porcine) (Heparin) 5,000 units SC Q12 TENA Last Admin: 03/15/17 21:35 Dose: 5,000 units Cefepime HCl (Maxipime Iv 2 Gm Premix) 2 gm in 100 mls @ 100 mls/hr IVPB Q12H TENA Last Admin: 03/15/17 17:28 Dose: 100 mls/hr Amikacin Sulfate 1,065 mg/ (Sodium Chloride) 254.26 mls @ 254.26 mls/hr IVPB Q48H [facility] Last Admin: 03/15/17 14:22 Dose: 254.26 mls/hr Insulin Human Regular (Novolin R) 0 unit SC Q6 TENA PRN Reason: Protocol Last Admin: 03/15/17 17:35 Dose: 4 unit Levetiracetam (Keppra) 500 mg PO Q12 [facility] Last Admin: 03/15/17 21:35 Dose: 500 mg Pantoprazole Sodium (Protonix Inj) 40 mg IVP DAILY [facility] Last Admin: 03/15/17 10:08 Dose: 40 mg Phenobarbital (Phenobarbital Inj) 90 mg IV Q8 [facility] Last Admin: 03/15/17 21:36 Dose: 90 mg Potassium Chloride (Potassium Chloride Oral Soln) 20 meq GT ONCE [facility] Last Admin: 03/09/17 13:52 Dose: 20 meq - Labs Labs: 03/15/17 05:43 03/15/17 05:43 PT 13.6 SECONDS (9.7-12.2) H 03/10/17 12:24 INR 1.2 03/10/17 12:24 APTT 32 SECONDS (21-34) 03/10/17 12:24 - Head Exam Head Exam: ATRAUMATIC - Eye Exam Eye Exam: Normal appearance - ENT Exam ENT Exam: Mucous Membranes Dry - Respiratory Exam Respiratory Exam: Decreased Breath Sounds - Cardiovascular Exam Cardiovascular Exam: +S1, +S2 - GI/Abdominal Exam GI & Abdominal Exam: Normal Bowel Sounds Assessment and Plan (1) Anemia Assessment & Plan: anemia of chronic disease monoclonal protein detected Status: Acute (2) Coagulopathy Assessment & Plan: nutritional Status: Acute
--- NOTE | 2017-03-15 21:57 | CP.PCM.PN ---
Subjective - Date & Time of Evaluation Date of Evaluation: 03/15/17 Time of Evaluation: 14:40 - Subjective Subjective: clinically same Objective - Vital Signs/Intake and Output Vital Signs (last 24 hours): Temp Pulse Resp BP Pulse Ox 101 F H 98 H 19 131/64 100 03/15/17 20:00 03/15/17 20:00 03/15/17 20:00 03/15/17 20:00 03/15/17 20:00 Intake and Output: 03/15/17 03/16/17 18:59 06:59 Intake Total 735 70 Output Total 1055 125 Balance -320 -55 - Medications Medications: Current Medications Acetaminophen (Tylenol 650mg/20.3ml Solution Ud) 650 mg PO Q4 PRN PRN Reason: temp >101 Last Admin: 03/14/17 21:58 Dose: 650 mg Albuterol/Ipratropium (Duoneb 3 Mg/0.5 Mg (3 Ml) Ud) 3 ml INH RQ6 TENA Last Admin: 03/15/17 19:27 Dose: 3 ml Artificial Tears (Lacri-Lube) 0 gm OS Q4H PRN PRN Reason: Other Last Admin: 03/15/17 21:45 Dose: 1 gm Calcium Acetate (Phoslo) 667 mg GT [facility] Last Admin: 03/15/17 17:28 Dose: 667 mg Collagenase (Santyl) 0 gm TOP DAILY [facility] Last Admin: 03/15/17 10:09 Dose: 1 applic Heparin Sodium (Porcine) (Heparin) 5,000 units SC Q12 TENA Last Admin: 03/15/17 21:35 Dose: 5,000 units Cefepime HCl (Maxipime Iv 2 Gm Premix) 2 gm in 100 mls @ 100 mls/hr IVPB Q12H TENA Last Admin: 03/15/17 17:28 Dose: 100 mls/hr Amikacin Sulfate 1,065 mg/ (Sodium Chloride) 254.26 mls @ 254.26 mls/hr IVPB Q48H [facility] Last Admin: 03/15/17 14:22 Dose: 254.26 mls/hr Insulin Human Regular (Novolin R) 0 unit SC Q6 TENA PRN Reason: Protocol Last Admin: 03/15/17 17:35 Dose: 4 unit Levetiracetam (Keppra) 500 mg PO Q12 [facility] Last Admin: 03/15/17 21:35 Dose: 500 mg Pantoprazole Sodium (Protonix Inj) 40 mg IVP DAILY [facility] Last Admin: 03/15/17 10:08 Dose: 40 mg Phenobarbital (Phenobarbital Inj) 90 mg IV Q8 [facility] Last Admin: 03/15/17 21:36 Dose: 90 mg Potassium Chloride (Potassium Chloride Oral Soln) 20 meq GT ONCE [facility] Last Admin: 03/09/17 13:52 Dose: 20 meq - Labs Labs: 03/15/17 05:43 03/15/17 05:43 PT 13.6 SECONDS (9.7-12.2) H 03/10/17 12:24 INR 1.2 03/10/17 12:24 APTT 32 SECONDS (21-34) 03/10/17 12:24 - Constitutional Appears: Well - Head Exam Head Exam: ATRAUMATIC, NORMAL INSPECTION, NORMOCEPHALIC - Eye Exam Eye Exam: EOMI, Normal appearance, PERRL Pupil Exam: NORMAL ACCOMODATION, PERRL - ENT Exam ENT Exam: Mucous Membranes Moist, Normal Exam - Neck Exam Neck Exam: Full ROM, Normal Inspection. absent: Lymphadenopathy - Respiratory Exam Respiratory Exam: Clear to Ausculation Bilateral, NORMAL BREATHING PATTERN - Cardiovascular Exam Cardiovascular Exam: REGULAR RHYTHM, +S1, +S2. absent: Murmur - GI/Abdominal Exam GI & Abdominal Exam: Soft, Normal Bowel Sounds. absent: Tenderness - Rectal Exam Rectal Exam: NORMAL INSPECTION - Exam Exam: Circumcision, NORMAL INSPECTION External exam: NORMAL EXTERNAL EXAM Speculum exam: NORMAL SPECULUM EXAM Bimanual exam: NORMAL BIMANUAL EXAM - Extremities Exam Extremities Exam: Full ROM, Normal Capillary Refill, Normal Inspection. absent : Joint Swelling, Pedal Edema - Back Exam Back Exam: NORMAL INSPECTION - Skin Skin Exam: Dry, Intact, Normal Color, Warm Assessment and Plan (1) Anemia Status: Acute (2) Anoxic encephalopathy Status: Acute (3) Anoxic encephalopathy Status: Acute (4) CHF (congestive heart failure) Status: Acute (5) Cardiac arrest Status: Acute (6) Coagulopathy Status: Acute (7) Open wound of right foot with complication Status: Acute (8) Respiratory failure Status: Acute (9) SAUNDRA (acute kidney injury) Status: Resolved - Assessment and Plan (Free Text) Plan: Patient examined. IV antibiotics and progress. ID consult advised to anatomy calcium. Pseudomonas in code. Continue cefepime and amikacin. Continue supportive care.
[2017-03-16] MEDS: (Novolin R) Insulin Human Regular 100 units/ml vial SC SCH ×4 (00:23→18:04)
[2017-03-16] MEDS: Albuterol-Ipratrop 3 mg / 0.5 (3 ml) UD INH SCH ×4 (01:30→19:40)
[2017-03-16] MEDS: Cefepime IV 2 gm in Dextrose 2 GM/100 ML BAG IVPB SCH ×2 (05:17→17:41)
[2017-03-16] MEDS: Nystatin 100,000 Units/gm Cream(15 gm) TOP SCH ×4 (05:18→17:42)
[2017-03-16 05:41] LABS: ABG ALLEN TEST POS; ABG MECHANICAL RATE 16; ARTERIAL BLOOD GAS MODE PRVC; ARTERIAL BLOOD HGB O2 SAT 96.5 % (95.0-98.0); ATERIAL BLOOD GAS PEEP 5; CARBOXYHEMOGLOBIN 1.2 % (0.5-1.5); DRAW SITE RR; HHB 1.2 % (0.0-5.0); METHEMOGLOBIN 1.1 % (0.0-3.0)
[2017-03-16 06:11] LABS: BASO % 0.3 % (0.0-2.0); EOS # 0.2 K/uL (0.0-0.7); EOS % 2.4 % (0.0-4.0); HEMATOCRIT 32.7 % (35.0-51.0); LYMPH # 1.2 K/uL (1.0-4.3); LYMPH % 11.4 % (20.0-40.0); MEAN CELL VOLUME 91.8 fL (80.0-94.0); MEAN CORPUSCULAR HEMOGLOBIN 30.2 pg (27.0-31.0); MEAN CORPUSCULAR HGB CONC 32.9 g/dL (33.0-37.0); MEAN PLATELET VOLUME 10.2 fL (7.2-11.7); MONO # 0.5 K/uL (0.0-0.8); MONO % 4.8 % (0.0-10.0); NRBC % 0.1 % (0.0-2.0); RED CELL DISTRIBUTION WIDTH 15.7 % (11.5-14.5); WHITE BLOOD COUNT 10.1 K/uL (4.8-10.8)
[2017-03-16 06:23] LABS: POTASSIUM 3.8 mmol/L (3.6-5.2)
[2017-03-16 06:25] LABS: BILIRUBIN,TOTAL 0.6 mg/dL (0.2-1.3)
[2017-03-16 06:26] LABS: PHOSPHOROUS 3.7 mg/dL (2.5-4.5); TOTAL PROTEIN 6.9 g/dL (6.3-8.3)
[2017-03-16 06:27] LABS: CALCIUM 8.3 mg/dl (8.6-10.4); MAGNESIUM 2.5 mg/dL (1.6-2.3)
--- NOTE | 2017-03-16 08:51 | RAD ---
Chest x-ray single frontal view History: Intubated. Comparison: 03/15/2017 Findings: Lines and tubes in stable position. Mild venous congestion. Patchy bibasilar airspace opacities. Small left pleural effusion. Biapical pleural thickening with upper lobe granulomatous changes. Tortuous ectatic aorta. Mild cardiomegaly. Degenerative changes in the spine and shoulders. Impression: Lines and tubes in stable position. Mild venous congestion. Patchy bibasilar airspace opacities. Small left pleural effusion. Biapical pleural thickening with upper lobe granulomatous changes. Tortuous ectatic aorta. Mild cardiomegaly.
[2017-03-16] MEDS: levETIRAcetam 100 mg/ml (5ml) Oral Syringe PO SCH ×2 (10:48→22:00)
[2017-03-16] MEDS: White Petrolatum/Mineral Oil Ophth Oint(3.5 gm) OS PRN ×2 (10:48→17:50)
[2017-03-16] MEDS: Collagenase 250 Units/gm Ointment(30 gm) TOP SCH (13:37)
--- NOTE | 2017-03-16 13:55 | CP.CCUPN ---
<Junie David - Last Filed: 03/16/17 13:50> CCU Subjective - Physician Review Subjective (Free Text): Patient seen and examined at bedside. ROS unobtainable due to patient's current clinical status. Patient is on ventilator support. Family still unsure of goals of care. CCU Objective - Vital Signs / Intake & Output Vital Signs (Last 4 hours): Vital Signs Temp Pulse Resp BP Pulse Ox 03/16/17 12:00 99.3 F 80 16 107/57 L 100 03/16/17 11:00 89 16 117/61 100 03/16/17 10:00 93 H 16 121/68 100 Intake and Output (Last 8hrs): Intake & Output 03/15/17 03/16/17 03/16/17 22:59 06:59 14:59 Intake Total 380 615 425 Output Total 710 625 575 Balance -330 -10 -150 Weight 159 lb 2.78 oz Intake: Intake, IV Amount 100 Left Hand 100 Tube Feeding 280 315 175 Other 100 200 250 Output: Urine 710 692 575 Urethral (Gipson) 710 735 575 - Physical Exam Head: Positive for: Atraumatic, Normocephalic Mouth: Positive for: Moist Mucous Membranes Respiratory/Chest: Positive for: Rales Cardiovascular: Positive for: Regular Rate and Rhythm, Normal S1, S2 Abdomen: Positive for: Normal Bowel Sounds. 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 Negative for: Alert, Oriented x 3 - Medications Active Medications: Active Medications Generic Name Dose Route Start Last Admin Trade Name Freq PRN Reason Stop Dose Admin Acetaminophen 650 mg 03/05/17 22:55 03/14/17 21:58 Tylenol 650mg/20.3ml Solution Ud PO 650 mg Q4 PRN Administration temp >101 Albuterol/Ipratropium 3 ml 03/10/17 20:00 03/16/17 13:26 Duoneb 3 Mg/0.5 Mg (3 Ml) Ud INH 3 ml RQ6 TENA Administration Artificial Tears 0 gm 03/06/17 10:04 03/16/17 10:48 Lacri-Lube OS 1 gm Q4H PRN Administration Other Calcium Acetate 667 mg 03/08/17 10:00 03/16/17 11:42 Phoslo GT 667 mg TIDCC TENA Administration Collagenase 0 gm 03/10/17 10:00 03/16/17 13:37 Santyl TOP 1 applic DAILY TENA Administration Heparin Sodium (Porcine) 5,000 units 03/14/17 22:00 03/16/17 10:38 Heparin SC 5,000 units Q12 TENA Administration Cefepime HCl 2 gm in 100 mls @ 100 mls/hr 03/13/17 18:00 03/16/17 05:17 Maxipime Iv 2 Gm Premix IVPB 100 mls/hr Q12H TENA Administration Amikacin Sulfate 1,065 mg/ 254.26 mls @ 254.26 mls/hr 03/15/17 13:00 14:22 Sodium Chloride IVPB 254.26 mls/hr Q48H TENA Administration Insulin Human Regular 0 unit 03/14/17 00:00 03/16/17 11:42 Novolin R SC 4 unit Q6 TENA Administration Protocol Levetiracetam 500 mg 03/14/17 22:00 03/16/17 10:48 Keppra PO 500 mg Q12 TENA Administration Nystatin 0 ea 03/16/17 10:00 03/16/17 13:31 Mycostatin Cream TOP 1 applic TID TENA Administration Pantoprazole Sodium 40 mg 03/05/17 10:00 03/16/17 10:38 Protonix Inj IVP 40 mg DAILY TENA Administration Phenobarbital 90 mg 03/10/17 06:00 03/16/17 13:31 Phenobarbital Inj IV 90 mg Q8 TENA Administration Potassium Chloride 20 meq 03/09/17 13:15 03/09/17 13:52 Potassium Chloride Oral Soln GT 20 meq ONCE TENA Administration - Patient Studies Lab Studies: Microbiology Studies 03/13/17 17:00 Gram Stain - Final Trachasp Sputum Culture - Final Pseudomonas Aeruginosa 03/13/17 17:00 Blood Culture - Preliminary Blood NO GROWTH AFTER 48 HOURS 03/13/17 17:00 Blood Culture - Preliminary Blood NO GROWTH AFTER 48 HOURS Lab Studies 11/03/17 11/03/17 11/03/17 Range/Units 11:15 06:04 06:04 WBC 10.1 (4.8-10.8) K/uL RBC 3.56 L (4.40-5.90) Mil/uL Hgb 10.8 L (12.0-18.0) g/dL Hct 32.7 L (35.0-51.0) % MCV 91.8 (80.0-94.0) fL MCH 30.2 (27.0-31.0) pg MCHC 32.9 L (33.0-37.0) g/dL RDW 15.7 H (11.5-14.5) % Plt Count 215 (130-400) K/uL MPV 10.2 (7.2-11.7) fL Neut % (Auto) 81.1 H (50.0-75.0) % Lymph % (Auto) 11.4 L (20.0-40.0) % [place] % (Auto) 4.8 (0.0-10.0) % Eos % (Auto) 2.4 (0.0-4.0) % Baso % (Auto) 0.3 (0.0-2.0) % Neut # 8.2 H (1.8-7.0) K/uL Lymph # 1.2 (1.0-4.3) K/uL [place] # 0.5 (0.0-0.8) K/uL Eos # 0.2 (0.0-0.7) K/uL Baso # 0.0 (0.0-0.2) K/uL Puncture Site pCO2 (35-45) mm/Hg pO2 (80-100) mm/Hg HCO3 (21-28) mmol/L ABG pH (7.35-7.45) ABG Total CO2 (22-28) mmol/L ABG O2 Saturation (95-98) % ABG Base Excess (-2.0-3.0) mmol/L ABG Hemoglobin (11.7-17.4) g/dL ABG Carboxyhemoglobin (0.5-1.5) % POC ABG HHb (Measured) (0.0-5.0) % ABG Methemoglobin (0.0-3.0) % Reji Test A-a O2 Difference mm/Hg Respiratory Index Hgb O2 Saturation (95.0-98.0) % Vent Mode Mechanical Rate FiO2 % Tidal Volume PEEP Sodium 147 (132-148) mmol/L Potassium 3.8 (3.6-5.2) mmol/L Chloride 112 H (98-107) mmol/L Carbon Dioxide 26 (22-30) mmol/L Anion Gap 13 (10-20) BUN 49 H (9-20) mg/dL Creatinine 2.3 H (0.8-1.5) mg/dL Est GFR ( Amer) 36 Est GFR (Non-Af Amer) 30 POC Glucose (mg/dL) 228 H (65-110) mg/dL Random Glucose 214 H (75-110) mg/dL Calcium 8.3 L (8.6-10.4) mg/dl Phosphorus 3.7 (2.5-4.5) mg/dL Magnesium 2.5 H (1.6-2.3) mg/dL Total Bilirubin 0.6 (0.2-1.3) mg/dL AST 57 (17-59) U/L ALT 38 (21-72) U/L Alkaline Phosphatase 103 (38-126) U/L Total Protein 6.9 (6.3-8.3) g/dL Albumin 3.4 L (3.5-5.0) g/dL Globulin 3.5 (2.2-3.9) gm/dL Albumin/Globulin Ratio 1.0 (1.0-2.1) 03/16/17 03/16/17 03/16/17 Range/Units 05:18 05:10 00:03 WBC (4.8-10.8) K/uL RBC (4.40-5.90) Mil/uL Hgb (12.0-18.0) g/dL Hct (35.0-51.0) % MCV (80.0-94.0) fL MCH (27.0-31.0) pg MCHC (33.0-37.0) g/dL RDW (11.5-14.5) % Plt Count (130-400) K/uL MPV (7.2-11.7) fL Neut % (Auto) (50.0-75.0) % Lymph % (Auto) (20.0-40.0) % [place] % (Auto) (0.0-10.0) % Eos % (Auto) (0.0-4.0) % Baso % (Auto) (0.0-2.0) % Neut # (1.8-7.0) K/uL Lymph # (1.0-4.3) K/uL [place] # (0.0-0.8) K/uL Eos # (0.0-0.7) K/uL Baso # (0.0-0.2) K/uL Puncture Site Rr pCO2 42 (35-45) mm/Hg pO2 113 H (80-100) mm/Hg HCO3 27.8 (21-28) mmol/L ABG pH 7.44 (7.35-7.45) ABG Total CO2 29.8 H (22-28) mmol/L ABG O2 Saturation 98.8 H (95-98) % ABG Base Excess 3.8 H (-2.0-3.0) mmol/L ABG Hemoglobin 18.1 H (11.7-17.4) g/dL ABG Carboxyhemoglobin 1.2 (0.5-1.5) % POC ABG HHb (Measured) 1.2 (0.0-5.0) % ABG Methemoglobin 1.1 (0.0-3.0) % Reji Test Pos A-a O2 Difference 191.0 mm/Hg Respiratory Index 1.7 Hgb O2 Saturation 96.5 (95.0-98.0) % Vent Mode Prvc Mechanical Rate 16 FiO2 50.0 % Tidal Volume 450 PEEP 5 Sodium (132-148) mmol/L Potassium (3.6-5.2) mmol/L Chloride (98-107) mmol/L Carbon Dioxide (22-30) mmol/L Anion Gap (10-20) BUN (9-20) mg/dL Creatinine (0.8-1.5) mg/dL Est GFR ( Amer) Est GFR (Non-Af Amer) POC Glucose (mg/dL) 234 H 258 H (65-110) mg/dL Random Glucose (75-110) mg/dL Calcium (8.6-10.4) mg/dl Phosphorus (2.5-4.5) mg/dL Magnesium (1.6-2.3) mg/dL Total Bilirubin (0.2-1.3) mg/dL AST (17-59) U/L ALT (21-72) U/L Alkaline Phosphatase (38-126) U/L Total Protein (6.3-8.3) g/dL Albumin (3.5-5.0) g/dL Globulin (2.2-3.9) gm/dL Albumin/Globulin Ratio (1.0-2.1) 03/15/17 Range/Units 17:34 WBC (4.8-10.8) K/uL RBC (4.40-5.90) Mil/uL Hgb (12.0-18.0) g/dL Hct (35.0-51.0) % MCV (80.0-94.0) fL MCH (27.0-31.0) pg MCHC (33.0-37.0) g/dL RDW (11.5-14.5) % Plt Count (130-400) K/uL MPV (7.2-11.7) fL Neut % (Auto) (50.0-75.0) % Lymph % (Auto) (20.0-40.0) % [place] % (Auto) (0.0-10.0) % Eos % (Auto) (0.0-4.0) % Baso % (Auto) (0.0-2.0) % Neut # (1.8-7.0) K/uL Lymph # (1.0-4.3) K/uL [place] # (0.0-0.8) K/uL Eos # (0.0-0.7) K/uL Baso # (0.0-0.2) K/uL Puncture Site pCO2 (35-45) mm/Hg pO2 (80-100) mm/Hg HCO3 (21-28) mmol/L ABG pH (7.35-7.45) ABG Total CO2 (22-28) mmol/L ABG O2 Saturation (95-98) % ABG Base Excess (-2.0-3.0) mmol/L ABG Hemoglobin (11.7-17.4) g/dL ABG Carboxyhemoglobin (0.5-1.5) % POC ABG HHb (Measured) (0.0-5.0) % ABG Methemoglobin (0.0-3.0) % Reji Test A-a O2 Difference mm/Hg Respiratory Index Hgb O2 Saturation (95.0-98.0) % Vent Mode Mechanical Rate FiO2 % Tidal Volume PEEP Sodium (132-148) mmol/L Potassium (3.6-5.2) mmol/L Chloride (98-107) mmol/L Carbon Dioxide (22-30) mmol/L Anion Gap (10-20) BUN (9-20) mg/dL Creatinine (0.8-1.5) mg/dL Est GFR ( Amer) Est GFR (Non-Af Amer) POC Glucose (mg/dL) 206 H (65-110) mg/dL Random Glucose (75-110) mg/dL Calcium (8.6-10.4) mg/dl Phosphorus (2.5-4.5) mg/dL Magnesium (1.6-2.3) mg/dL Total Bilirubin (0.2-1.3) mg/dL AST (17-59) U/L ALT (21-72) U/L Alkaline Phosphatase (38-126) U/L Total Protein (6.3-8.3) g/dL Albumin (3.5-5.0) g/dL Globulin (2.2-3.9) gm/dL Albumin/Globulin Ratio (1.0-2.1) Laboratory Results - last 24 hr 03/15/17 03/16/17 03/16/17 17:34 00:03 05:10 WBC RBC Hgb Hct MCV MCH MCHC RDW Plt Count MPV Neut % (Auto) Lymph % (Auto) [place] % (Auto) Eos % (Auto) Baso % (Auto) Neut # Lymph # [place] # Eos # Baso # Puncture Site Rr pCO2 42 pO2 113 H HCO3 27.8 ABG pH 7.44 ABG Total CO2 29.8 H ABG O2 Saturation 98.8 H ABG Base Excess 3.8 H ABG Hemoglobin 18.1 H ABG Carboxyhemoglobin 1.2 POC ABG HHb (Measured) 1.2 ABG Methemoglobin 1.1 Reji Test Pos A-a O2 Difference 191.0 Respiratory Index 1.7 Hgb O2 Saturation 96.5 Vent Mode Prvc Mechanical Rate 16 FiO2 50.0 Tidal Volume 450 PEEP 5 Sodium Potassium Chloride Carbon Dioxide Anion Gap BUN Creatinine Est GFR ( Amer) Est GFR (Non-Af Amer) POC Glucose (mg/dL) 206 H 258 H Random Glucose Calcium Phosphorus Magnesium Total Bilirubin AST ALT Alkaline Phosphatase Total Protein Albumin Globulin Albumin/Globulin Ratio 03/16/17 03/16/17 03/16/17 05:18 06:04 06:04 WBC 10.1 RBC 3.56 L Hgb 10.8 L Hct 32.7 L MCV 91.8 MCH 30.2 MCHC 32.9 L RDW 15.7 H Plt Count 215 MPV 10.2 Neut % (Auto) 81.1 H Lymph % (Auto) 11.4 L [place] % (Auto) 4.8 Eos % (Auto) 2.4 Baso % (Auto) 0.3 Neut # 8.2 H Lymph # 1.2 [place] # 0.5 Eos # 0.2 Baso # 0.0 Puncture Site pCO2 pO2 HCO3 ABG pH ABG Total CO2 ABG O2 Saturation ABG Base Excess ABG Hemoglobin ABG Carboxyhemoglobin POC ABG HHb (Measured) ABG Methemoglobin Reji Test A-a O2 Difference Respiratory Index Hgb O2 Saturation Vent Mode Mechanical Rate FiO2 Tidal Volume PEEP Sodium 147 Potassium 3.8 Chloride 112 H Carbon Dioxide 26 Anion Gap 13 BUN 49 H Creatinine 2.3 H Est GFR ( Amer) 36 Est GFR (Non-Af Amer) 30 POC Glucose (mg/dL) 234 H Random Glucose 214 H Calcium 8.3 L Phosphorus 3.7 Magnesium 2.5 H Total Bilirubin 0.6 AST 57 ALT 38 Alkaline Phosphatase 103 Total Protein 6.9 Albumin 3.4 L Globulin 3.5 Albumin/Globulin Ratio 1.0 03/16/17 11:15 WBC RBC Hgb Hct MCV MCH MCHC RDW Plt Count MPV Neut % (Auto) Lymph % (Auto) [place] % (Auto) Eos % (Auto) Baso % (Auto) Neut # Lymph # [place] # Eos # Baso # Puncture Site pCO2 pO2 HCO3 ABG pH ABG Total CO2 ABG O2 Saturation ABG Base Excess ABG Hemoglobin ABG Carboxyhemoglobin POC ABG HHb (Measured) ABG Methemoglobin Reji Test A-a O2 Difference Respiratory Index Hgb O2 Saturation Vent Mode Mechanical Rate FiO2 Tidal Volume PEEP Sodium Potassium Chloride Carbon Dioxide Anion Gap BUN Creatinine Est GFR ( Amer) Est GFR (Non-Af Amer) POC Glucose (mg/dL) 228 H Random Glucose Calcium Phosphorus Magnesium Total Bilirubin AST ALT Alkaline Phosphatase Total Protein Albumin Globulin Albumin/Globulin Ratio Fingerstick Blood Sugar Results: 228 Review of Systems - Review of Systems Systems not reviewed;Unavailable: Intubated Assessment/Plan - Assessment and Plan (Free Text) Assessment: 52 y/o M with pmhx of HTN, DM II, kidney disease, who was brought to the ED after he collapsed in ED at home and was found in asystole. Patient given 3 doses of epi and CPR for 15 minutes then ROSC. Patient intubated in the field. Patient went into cardiac arrest twice more in the ICU. Plan: Neuro: Intubated, altered mental status (no improvement) Medication and Management: * Keppra 500 mg PO q12h * Phenobarbital 90 mg IV Q8 * Dr. Rascon consulted, help appreciated Imaging: (03/08) Blood flow study - criteria for brain not established on the current examination Head CT (03/04): chronic microvascular ischemic changes, no acute intracranial hemorrhage EEG (03/05/17): periodic paroxysmal activities lasting about 2-3 seconds with intermittent burst suppression suggestive of status epileptiform activities. Head CT (03/06/17): nonspecific white matter changes Pulm: Respiratory distress secondary to cardiac arrest Medication and Management * Patient intubated * gipson to measure urine output * Mark prn Imaging: Chest X-ray (03/16/17): Mild venous congestion, stable cardiomegaly, mild left pleural effusion Cardio: s/p cardiac arrest Medication and management: * Off of pressers * Dr. Tate consulted, help appreciated * Echo (03/04/17): LVEF:42, mild to moderate LV systolic dysfunction. Normal chamber size. Trace MR and TR. Trace pericardial effusion. Pleural effusion. Heme: anemia Medication and management: * Hgb 10.8 - stable * 03/06/17: HgB/Hct: 7/20.6, transfused 2 u PRBCs * Dr. Rubio consulted help appreciated -> monoclonal protein detected Endo: DM II Medication and management: * Regular ISS- increased to high on 03/08 * accucheck q6h * HgA1C: 9.4 Renal: SAUNDRA - table Medication and management: * Lasix d/c on 03/08 * f/u recommendation as per Dr. Charles - monitor lytes * monitor K level and replaced as necessary * BUN/CR 49/2.3 - stable * Phoslo 667mg GT TIDCC MSK: right foot wound secondary to first metatarsal amputation Medication and management: * Wound care - Right foot dressed with CORNELIUS Mueller * Dr. Guzman, podiatry, consulted- help appreciated ID: Medication and management: * MRSA in nose * Urine culture (-) 03/04 * blood culture (-) 03/04 * 03/13: Sputum: pseudomonas aeruginosa * Amikacin 1065mg q48h (renal dosing) - sensitive * Cefepine IV 2 gram IVPB Q12 * Azithromycin 250mg IVPB daily - started 03/11 stopped on 03/15 * Dr. Shore consulted, help appreciated Prophylaxis: DVT: Heparin 5,000 u sc Q12 hours GI: Protonix 40 mg IVP daily glucerna feeds at 35ml/hr, 100 cc free water flushes q6h Prognosis is very poor. Family still discussing code status, all are not in agreement of a decision. (Possible transfer to [facility]) <Gal Pedro - Last Filed: 03/16/17 16:06> CCU Objective - Vital Signs / Intake & Output Vital Signs (Last 4 hours): Vital Signs Pulse Resp BP Pulse Ox 03/16/17 15:00 83 16 97/55 L 100 03/16/17 14:01 92 H 16 139/73 100 03/16/17 13:00 79 16 106/55 L 100 Intake and Output (Last 8hrs): Intake & Output 03/16/17 03/16/17 03/16/17 06:59 14:59 22:59 Intake Total 615 495 35 Output Total 625 675 Balance -10 -180 35 Weight 159 lb 2.78 oz Intake: Intake, IV Amount 100 Left Hand 100 Tube Feeding 315 245 35 Other 200 250 Output: Urine 625 675 Urethral (Gipson) 746 675 - Medications Active Medications: Active Medications Generic Name Dose Route Start Last Admin Trade Name Freq PRN Reason Stop Dose Admin Acetaminophen 650 mg 03/05/17 22:55 03/14/17 21:58 Tylenol 650mg/20.3ml Solution Ud PO 650 mg Q4 PRN Administration temp >101 Albuterol/Ipratropium 3 ml 03/10/17 20:00 03/16/17 13:26 Duoneb 3 Mg/0.5 Mg (3 Ml) Ud INH 3 ml RQ6 TENA Administration Artificial Tears 0 gm 03/06/17 10:04 03/16/17 10:48 Lacri-Lube OS 1 gm Q4H PRN Administration Other Calcium Acetate 667 mg 03/08/17 10:00 03/16/17 11:42 Phoslo GT 667 mg TIDCC TENA Administration Collagenase 0 gm 03/10/17 10:00 03/16/17 13:37 Santyl TOP 1 applic DAILY TENA Administration Heparin Sodium (Porcine) 5,000 units 03/14/17 22:00 03/16/17 10:38 Heparin SC 5,000 units Q12 TENA Administration Cefepime HCl 2 gm in 100 mls @ 100 mls/hr 03/13/17 18:00 03/16/17 05:17 Maxipime Iv 2 Gm Premix IVPB 100 mls/hr Q12H TENA Administration Amikacin Sulfate 1,065 mg/ 254.26 mls @ 254.26 mls/hr 03/15/17 13:00 14:22 Sodium Chloride IVPB 254.26 mls/hr Q48H TENA Administration Insulin Human Regular 0 unit 03/14/17 00:00 03/16/17 11:42 Novolin R SC 4 unit Q6 TENA Administration Protocol Levetiracetam 500 mg 03/14/17 22:00 03/16/17 10:48 Keppra PO 500 mg Q12 TENA Administration Nystatin 0 ea 03/16/17 10:00 03/16/17 13:31 Mycostatin Cream TOP 1 applic TID TENA Administration Pantoprazole Sodium 40 mg 03/05/17 10:00 03/16/17 10:38 Protonix Inj IVP 40 mg DAILY TENA Administration Phenobarbital 90 mg 03/10/17 06:00 03/16/17 13:31 Phenobarbital Inj IV 90 mg Q8 TENA Administration Potassium Chloride 20 meq 03/09/17 13:15 03/09/17 13:52 Potassium Chloride Oral Soln GT 20 meq ONCE TENA Administration - Patient Studies Lab Studies: Microbiology Studies 03/13/17 17:00 Gram Stain - Final Trachasp Sputum Culture - Final Pseudomonas Aeruginosa 03/13/17 17:00 Blood Culture - Preliminary Blood NO GROWTH AFTER 48 HOURS 03/13/17 17:00 Blood Culture - Preliminary Blood NO GROWTH AFTER 48 HOURS Lab Studies 03/16/17 03/16/17 03/16/17 Range/Units 11:15 06:04 06:04 WBC 10.1 (4.8-10.8) K/uL RBC 3.56 L (4.40-5.90) Mil/uL Hgb 10.8 L (12.0-18.0) g/dL Hct 32.7 L (35.0-51.0) % MCV 91.8 (80.0-94.0) fL MCH 30.2 (27.0-31.0) pg MCHC 32.9 L (33.0-37.0) g/dL RDW 15.7 H (11.5-14.5) % Plt Count 215 (130-400) K/uL MPV 10.2 (7.2-11.7) fL Neut % (Auto) 81.1 H (50.0-75.0) % Lymph % (Auto) 11.4 L (20.0-40.0) % [place] % (Auto) 4.8 (0.0-10.0) % Eos % (Auto) 2.4 (0.0-4.0) % Baso % (Auto) 0.3 (0.0-2.0) % Neut # 8.2 H (1.8-7.0) K/uL Lymph # 1.2 (1.0-4.3) K/uL [place] # 0.5 (0.0-0.8) K/uL Eos # 0.2 (0.0-0.7) K/uL Baso # 0.0 (0.0-0.2) K/uL Puncture Site pCO2 (35-45) mm/Hg pO2 (80-100) mm/Hg HCO3 (21-28) mmol/L ABG pH (7.35-7.45) ABG Total CO2 (22-28) mmol/L ABG O2 Saturation (95-98) % ABG Base Excess (-2.0-3.0) mmol/L ABG Hemoglobin (11.7-17.4) g/dL ABG Carboxyhemoglobin (0.5-1.5) % POC ABG HHb (Measured) (0.0-5.0) % ABG Methemoglobin (0.0-3.0) % Reji Test A-a O2 Difference mm/Hg Respiratory Index Hgb O2 Saturation (95.0-98.0) % Vent Mode Mechanical Rate FiO2 % Tidal Volume PEEP Sodium 147 (132-148) mmol/L Potassium 3.8 (3.6-5.2) mmol/L Chloride 112 H (98-107) mmol/L Carbon Dioxide 26 (22-30) mmol/L Anion Gap 13 (10-20) BUN 49 H (9-20) mg/dL Creatinine 2.3 H (0.8-1.5) mg/dL Est GFR ( Amer) 36 Est GFR (Non-Af Amer) 30 POC Glucose (mg/dL) 228 H (65-110) mg/dL Random Glucose 214 H (75-110) mg/dL Calcium 8.3 L (8.6-10.4) mg/dl Phosphorus 3.7 (2.5-4.5) mg/dL Magnesium 2.5 H (1.6-2.3) mg/dL Total Bilirubin 0.6 (0.2-1.3) mg/dL AST 57 (17-59) U/L ALT 38 (21-72) U/L Alkaline Phosphatase 103 (38-126) U/L Total Protein 6.9 (6.3-8.3) g/dL Albumin 3.4 L (3.5-5.0) g/dL Globulin 3.5 (2.2-3.9) gm/dL Albumin/Globulin Ratio 1.0 (1.0-2.1) 03/16/17 03/16/17 03/16/17 Range/Units 05:18 05:10 00:03 WBC (4.8-10.8) K/uL RBC (4.40-5.90) Mil/uL Hgb (12.0-18.0) g/dL Hct (35.0-51.0) % MCV (80.0-94.0) fL MCH (27.0-31.0) pg MCHC (33.0-37.0) g/dL RDW (11.5-14.5) % Plt Count (130-400) K/uL MPV (7.2-11.7) fL Neut % (Auto) (50.0-75.0) % Lymph % (Auto) (20.0-40.0) % [place] % (Auto) (0.0-10.0) % Eos % (Auto) (0.0-4.0) % Baso % (Auto) (0.0-2.0) % Neut # (1.8-7.0) K/uL Lymph # (1.0-4.3) K/uL [place] # (0.0-0.8) K/uL Eos # (0.0-0.7) K/uL Baso # (0.0-0.2) K/uL Puncture Site Rr pCO2 42 (35-45) mm/Hg pO2 113 H (80-100) mm/Hg HCO3 27.8 (21-28) mmol/L ABG pH 7.44 (7.35-7.45) ABG Total CO2 29.8 H (22-28) mmol/L ABG O2 Saturation 98.8 H (95-98) % ABG Base Excess 3.8 H (-2.0-3.0) mmol/L ABG Hemoglobin 18.1 H (11.7-17.4) g/dL ABG Carboxyhemoglobin 1.2 (0.5-1.5) % POC ABG HHb (Measured) 1.2 (0.0-5.0) % ABG Methemoglobin 1.1 (0.0-3.0) % Reji Test Pos A-a O2 Difference 191.0 mm/Hg Respiratory Index 1.7 Hgb O2 Saturation 96.5 (95.0-98.0) % Vent Mode Prvc Mechanical Rate 16 FiO2 50.0 % Tidal Volume 450 PEEP 5 Sodium (132-148) mmol/L Potassium (3.6-5.2) mmol/L Chloride (98-107) mmol/L Carbon Dioxide (22-30) mmol/L Anion Gap (10-20) BUN (9-20) mg/dL Creatinine (0.8-1.5) mg/dL Est GFR ( Amer) Est GFR (Non-Af Amer) POC Glucose (mg/dL) 234 H 258 H (65-110) mg/dL Random Glucose (75-110) mg/dL Calcium (8.6-10.4) mg/dl Phosphorus (2.5-4.5) mg/dL Magnesium (1.6-2.3) mg/dL Total Bilirubin (0.2-1.3) mg/dL AST (17-59) U/L ALT (21-72) U/L Alkaline Phosphatase (38-126) U/L Total Protein (6.3-8.3) g/dL Albumin (3.5-5.0) g/dL Globulin (2.2-3.9) gm/dL Albumin/Globulin Ratio (1.0-2.1) 03/15/17 Range/Units 17:34 WBC (4.8-10.8) K/uL RBC (4.40-5.90) Mil/uL Hgb (12.0-18.0) g/dL Hct (35.0-51.0) % MCV (80.0-94.0) fL MCH (27.0-31.0) pg MCHC (33.0-37.0) g/dL RDW (11.5-14.5) % Plt Count (130-400) K/uL MPV (7.2-11.7) fL Neut % (Auto) (50.0-75.0) % Lymph % (Auto) (20.0-40.0) % [place] % (Auto) (0.0-10.0) % Eos % (Auto) (0.0-4.0) % Baso % (Auto) (0.0-2.0) % Neut # (1.8-7.0) K/uL Lymph # (1.0-4.3) K/uL [place] # (0.0-0.8) K/uL Eos # (0.0-0.7) K/uL Baso # (0.0-0.2) K/uL Puncture Site pCO2 (35-45) mm/Hg pO2 (80-100) mm/Hg HCO3 (21-28) mmol/L ABG pH (7.35-7.45) ABG Total CO2 (22-28) mmol/L ABG O2 Saturation (95-98) % ABG Base Excess (-2.0-3.0) mmol/L ABG Hemoglobin (11.7-17.4) g/dL ABG Carboxyhemoglobin (0.5-1.5) % POC ABG HHb (Measured) (0.0-5.0) % ABG Methemoglobin (0.0-3.0) % Reji Test A-a O2 Difference mm/Hg Respiratory Index Hgb O2 Saturation (95.0-98.0) % Vent Mode Mechanical Rate FiO2 % Tidal Volume PEEP Sodium (132-148) mmol/L Potassium (3.6-5.2) mmol/L Chloride (98-107) mmol/L Carbon Dioxide (22-30) mmol/L Anion Gap (10-20) BUN (9-20) mg/dL Creatinine (0.8-1.5) mg/dL Est GFR ( Amer) Est GFR (Non-Af Amer) POC Glucose (mg/dL) 206 H (65-110) mg/dL Random Glucose (75-110) mg/dL Calcium (8.6-10.4) mg/dl Phosphorus (2.5-4.5) mg/dL Magnesium (1.6-2.3) mg/dL Total Bilirubin (0.2-1.3) mg/dL AST (17-59) U/L ALT (21-72) U/L Alkaline Phosphatase (38-126) U/L Total Protein (6.3-8.3) g/dL Albumin (3.5-5.0) g/dL Globulin (2.2-3.9) gm/dL Albumin/Globulin Ratio (1.0-2.1) Laboratory Results - last 24 hr 03/15/17 03/16/17 03/16/17 17:34 00:03 05:10 WBC RBC Hgb Hct MCV MCH MCHC RDW Plt Count MPV Neut % (Auto) Lymph % (Auto) [place] % (Auto) Eos % (Auto) Baso % (Auto) Neut # Lymph # [place] # Eos # Baso # Puncture Site Rr pCO2 42 pO2 113 H HCO3 27.8 ABG pH 7.44 ABG Total CO2 29.8 H ABG O2 Saturation 98.8 H ABG Base Excess 3.8 H ABG Hemoglobin 18.1 H ABG Carboxyhemoglobin 1.2 POC ABG HHb (Measured) 1.2 ABG Methemoglobin 1.1 Reji Test Pos A-a O2 Difference 191.0 Respiratory Index 1.7 Hgb O2 Saturation 96.5 Vent Mode Prvc Mechanical Rate 16 FiO2 50.0 Tidal Volume 450 PEEP 5 Sodium Potassium Chloride Carbon Dioxide Anion Gap BUN Creatinine Est GFR ( Amer) Est GFR (Non-Af Amer) POC Glucose (mg/dL) 206 H 258 H Random Glucose Calcium Phosphorus Magnesium Total Bilirubin AST ALT Alkaline Phosphatase Total Protein Albumin Globulin Albumin/Globulin Ratio 03/16/17 03/16/17 03/16/17 05:18 06:04 06:04 WBC 10.1 RBC 3.56 L Hgb 10.8 L Hct 32.7 L MCV 91.8 MCH 30.2 MCHC 32.9 L RDW 15.7 H Plt Count 215 MPV 10.2 Neut % (Auto) 81.1 H Lymph % (Auto) 11.4 L [place] % (Auto) 4.8 Eos % (Auto) 2.4 Baso % (Auto) 0.3 Neut # 8.2 H Lymph # 1.2 [place] # 0.5 Eos # 0.2 Baso # 0.0 Puncture Site pCO2 pO2 HCO3 ABG pH ABG Total CO2 ABG O2 Saturation ABG Base Excess ABG Hemoglobin ABG Carboxyhemoglobin POC ABG HHb (Measured) ABG Methemoglobin Reji Test A-a O2 Difference Respiratory Index Hgb O2 Saturation Vent Mode Mechanical Rate FiO2 Tidal Volume PEEP Sodium 147 Potassium 3.8 Chloride 112 H Carbon Dioxide 26 Anion Gap 13 BUN 49 H Creatinine 2.3 H Est GFR ( Amer) 36 Est GFR (Non-Af Amer) 30 POC Glucose (mg/dL) 234 H Random Glucose 214 H Calcium 8.3 L Phosphorus 3.7 Magnesium 2.5 H Total Bilirubin 0.6 AST 57 ALT 38 Alkaline Phosphatase 103 Total Protein 6.9 Albumin 3.4 L Globulin 3.5 Albumin/Globulin Ratio 1.0 03/16/17 11:15 WBC RBC Hgb Hct MCV MCH MCHC RDW Plt Count MPV Neut % (Auto) Lymph % (Auto) [place] % (Auto) Eos % (Auto) Baso % (Auto) Neut # Lymph # [place] # Eos # Baso # Puncture Site pCO2 pO2 HCO3 ABG pH ABG Total CO2 ABG O2 Saturation ABG Base Excess ABG Hemoglobin ABG Carboxyhemoglobin POC ABG HHb (Measured) ABG Methemoglobin Reji Test A-a O2 Difference Respiratory Index Hgb O2 Saturation Vent Mode Mechanical Rate FiO2 Tidal Volume PEEP Sodium Potassium Chloride Carbon Dioxide Anion Gap BUN Creatinine Est GFR ( Amer) Est GFR (Non-Af Amer) POC Glucose (mg/dL) 228 H Random Glucose Calcium Phosphorus Magnesium Total Bilirubin AST ALT Alkaline Phosphatase Total Protein Albumin Globulin Albumin/Globulin Ratio Attending/Attestation - Attestation I have personally seen and examined this patient.: Yes I have fully participated in the care of the patient.: Yes I have reviewed all pertinent clinical information: Yes Notes (Text): 03/16/17 16:05 I have seen and examined the patient. Medical records, lab studies, and imaging were reviewed by me and a management plan was formulated on multidisciplinary rounds with resident Dr. David. I agree with their documented assessment and plan. Patient is showing no signs of meaningful recovery. Family still undecided about course of treatment. Will urge trach/peg placement for comfort of patient. Can transfer to LT[facility]. Critical Care Time 35 minutes. Multi-disciplinary rounds were performed with house staff, nursing, speech therapy, respiratory therapy, pharmacy and nutrition with integrated input from the primary team/attending and other consulting services. The documented time is cumulative and includes review of patient data/exams/labs/chart review and examination of the patient on rounds and throughout the day; time is exclusive of any procedures or teaching time.
--- NOTE | 2017-03-16 14:00 | CP.PCM.PN ---
Subjective - Date & Time of Evaluation Date of Evaluation: 03/16/17 Time of Evaluation: 13:57 - Subjective Subjective: Same unresponsiveness UO - adequate Creat slowly improving- 2.3 lytes acceptable Objective - Vital Signs/Intake and Output Vital Signs (last 24 hours): Temp Pulse Resp BP Pulse Ox 99.3 F 80 16 107/57 L 100 03/16/17 12:00 03/16/17 12:00 03/16/17 12:00 03/16/17 12:00 03/16/17 12:00 Intake and Output: 03/16/17 03/16/17 06:59 18:59 Intake Total 755 425 Output Total 950 575 Balance -195 -150 - Medications Medications: Current Medications Acetaminophen (Tylenol 650mg/20.3ml Solution Ud) 650 mg PO Q4 PRN PRN Reason: temp >101 Last Admin: 03/14/17 21:58 Dose: 650 mg Albuterol/Ipratropium (Duoneb 3 Mg/0.5 Mg (3 Ml) Ud) 3 ml INH RQ6 [facility] Last Admin: 03/16/17 13:26 Dose: 3 ml Artificial Tears (Lacri-Lube) 0 gm OS Q4H PRN PRN Reason: Other Last Admin: 03/16/17 10:48 Dose: 1 gm Calcium Acetate (Phoslo) 667 mg GT TIDCC [facility] Last Admin: 03/16/17 11:42 Dose: 667 mg Collagenase (Santyl) 0 gm TOP DAILY [facility] Last Admin: 03/16/17 13:37 Dose: 1 applic Heparin Sodium (Porcine) (Heparin) 5,000 units SC Q12 [facility]NA Last Admin: 03/16/17 10:38 Dose: 5,000 units Cefepime HCl (Maxipime Iv 2 Gm Premix) 2 gm in 100 mls @ 100 mls/hr IVPB Q12H [facility] Last Admin: 03/16/17 05:17 Dose: 100 mls/hr Amikacin Sulfate 1,065 mg/ (Sodium Chloride) 254.26 mls @ 254.26 mls/hr IVPB Q48H [facility] Last Admin: 03/15/17 14:22 Dose: 254.26 mls/hr Insulin Human Regular (Novolin R) 0 unit SC Q6 TENA PRN Reason: Protocol Last Admin: 03/16/17 11:42 Dose: 4 unit Levetiracetam (Keppra) 500 mg PO Q12 [facility] Last Admin: 03/16/17 10:48 Dose: 500 mg Nystatin (Mycostatin Cream) 0 ea TOP TID [facility] Last Admin: 03/16/17 13:31 Dose: 1 applic Pantoprazole Sodium (Protonix Inj) 40 mg IVP DAILY [facility] Last Admin: 03/16/17 10:38 Dose: 40 mg Phenobarbital (Phenobarbital Inj) 90 mg IV Q8 [facility] Last Admin: 03/16/17 13:31 Dose: 90 mg Potassium Chloride (Potassium Chloride Oral Soln) 20 meq GT ONCE [facility] Last Admin: 03/09/17 13:52 Dose: 20 meq - Labs Labs: 03/16/17 06:04 03/16/17 06:04 PT 13.6 SECONDS (9.7-12.2) H 03/10/17 12:24 INR 1.2 03/10/17 12:24 APTT 32 SECONDS (21-34) 03/10/17 12:24 - Constitutional Appears: Non-toxic, No Acute Distress, Chronically Ill - Head Exam Head Exam: ATRAUMATIC, NORMAL INSPECTION - Neck Exam Neck Exam: Normal Inspection. absent: Tenderness - Respiratory Exam Respiratory Exam: Clear to Ausculation Bilateral, Respiratory Distress - Cardiovascular Exam Cardiovascular Exam: REGULAR RHYTHM, +S1 - GI/Abdominal Exam GI & Abdominal Exam: Soft. absent: Tenderness - Neurological Exam Neurological Exam: Altered, Motor Sensory Deficit - Skin Skin Exam: Dry, Warm Assessment and Plan (1) SAUNDRA (acute kidney injury) Status: Resolved (2) CHF (congestive heart failure) Status: Acute (3) Cardiac arrest Status: Acute (4) Open wound of right foot with complication Status: Acute (5) Respiratory failure Status: Acute - Assessment and Plan (Free Text) Plan: Same meds Supportive care monitor soraya
--- NOTE | 2017-03-16 14:11 | CP.PCM.PN ---
<Jeannie Ellis - Last Filed: 03/16/17 14:09> Subjective - Date & Time of Evaluation Date of Evaluation: 03/16/17 Time of Evaluation: 14:09 - Subjective Subjective: podiatry progress note for Dr. Guzman: 52 yo male seen at bedside in ICU this morning with attending Dr. 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 Patient unable to communicate. Patient's friends at bedside. Dressing to right foot appears clean dry and intact. Multipodus offloading boots intact to bilateral lower extremities. Objective - Vital Signs/Intake and Output Vital Signs (last 24 hours): Temp Pulse Resp BP Pulse Ox 99.3 F 80 16 107/57 L 100 03/16/17 12:00 03/16/17 12:00 03/16/17 12:00 03/16/17 12:00 03/16/17 12:00 Intake and Output: 03/16/17 03/16/17 06:59 18:59 Intake Total 755 425 Output Total 950 575 Balance -195 -150 - Medications Medications: Current Medications Acetaminophen (Tylenol 650mg/20.3ml Solution Ud) 650 mg PO Q4 PRN PRN Reason: temp >101 Last Admin: 03/14/17 21:58 Dose: 650 mg Albuterol/Ipratropium (Duoneb 3 Mg/0.5 Mg (3 Ml) Ud) 3 ml INH RQ6 [facility] Last Admin: 03/16/17 13:26 Dose: 3 ml Artificial Tears (Lacri-Lube) 0 gm OS Q4H PRN PRN Reason: Other Last Admin: 03/16/17 10:48 Dose: 1 gm Calcium Acetate (Phoslo) 667 mg GT TIDCC [facility] Last Admin: 03/16/17 11:42 Dose: 667 mg Collagenase (Santyl) 0 gm TOP DAILY [facility] Last Admin: 03/16/17 13:37 Dose: 1 applic Heparin Sodium (Porcine) (Heparin) 5,000 units SC Q12 [facility] Last Admin: 03/16/17 10:38 Dose: 5,000 units Cefepime HCl (Maxipime Iv 2 Gm Premix) 2 gm in 100 mls @ 100 mls/hr IVPB Q12H [facility] Last Admin: 03/16/17 05:17 Dose: 100 mls/hr Amikacin Sulfate 1,065 mg/ (Sodium Chloride) 254.26 mls @ 254.26 mls/hr IVPB Q48H [facility] Last Admin: 03/15/17 14:22 Dose: 254.26 mls/hr Insulin Human Regular (Novolin R) 0 unit SC Q6 TENA PRN Reason: Protocol Last Admin: 03/16/17 11:42 Dose: 4 unit Levetiracetam (Keppra) 500 mg PO Q12 [facility] Last Admin: 03/16/17 10:48 Dose: 500 mg Nystatin (Mycostatin Cream) 0 ea TOP TID [facility] Last Admin: 03/16/17 13:31 Dose: 1 applic Pantoprazole Sodium (Protonix Inj) 40 mg IVP DAILY [facility] Last Admin: 03/16/17 10:38 Dose: 40 mg Phenobarbital (Phenobarbital Inj) 90 mg IV Q8 [facility] Last Admin: 03/16/17 13:31 Dose: 90 mg Potassium Chloride (Potassium Chloride Oral Soln) 20 meq GT ONCE [facility] Last Admin: 03/09/17 13:52 Dose: 20 meq - Labs Labs: 03/16/17 06:04 03/16/17 06:04 PT 13.6 SECONDS (9.7-12.2) H 03/10/17 12:24 INR 1.2 03/10/17 12:24 APTT 32 SECONDS (21-34) 03/10/17 12:24 - Constitutional Appears: Well, Non-toxic, No Acute Distress - Extremities Exam Additional comments: Right lower extremity exam DERM: Open wound noted to medial aspect of right Hallux amputation site measuring 3.5cm x 2cm x 0.6cm with mostly fibrotic base. no purulent drainage noted, Wen wound erythema with necrotic edges measures <1cm margin. minimal Mal-odor is present. VASC: Palpable DP noted at 1/4, non-palpable PT noted. [employer] less than 3 seconds to all digits noted. - Neurological Exam Neurological Exam: Alert, Awake, Oriented x3 - Psychiatric Exam Psychiatric exam: Normal Affect, Normal Mood Assessment and Plan - Assessment and Plan (Free Text) Assessment: 52 yo male seen at bedside in the ICU for open wound to right Hallux amputation site Plan: patient seen and evaluated at bedside seen at bedside with attending Dr. Guzman labs and vitals reviewed WBC 10.1, afebrile Right foot cleansed with sterile normal saline, dressed with Santyl,DSD continue wearing offloading boots while bed bound Podiatry will continue to follow while In house <Uriel Guzman - Last Filed: 03/17/17 08:46> Objective - Vital Signs/Intake and Output Vital Signs (last 24 hours): Temp Pulse Resp BP Pulse Ox 99.1 F 80 16 121/69 100 03/17/17 08:00 03/17/17 08:00 03/17/17 08:00 03/17/17 08:00 03/17/17 08:00 Intake and Output: 03/17/17 03/17/17 06:59 18:59 Intake Total 520 120 Output Total 1260 180 Balance -740 -60 - Medications Medications: Current Medications Acetaminophen (Tylenol 650mg/20.3ml Solution Ud) 650 mg PO Q4 PRN PRN Reason: temp >101 Last Admin: 03/14/17 21:58 Dose: 650 mg Albuterol/Ipratropium (Duoneb 3 Mg/0.5 Mg (3 Ml) Ud) 3 ml INH RQ6 [facility] Last Admin: 03/17/17 07:15 Dose: 3 ml Artificial Tears (Lacri-Lube) 0 gm OS Q4H PRN PRN Reason: Other Last Admin: 03/16/17 17:50 Dose: 1 gm Calcium Acetate (Phoslo) 667 mg GT TIDCC [facility] Last Admin: 03/17/17 07:57 Dose: 667 mg Collagenase (Santyl) 0 gm TOP DAILY [facility] Last Admin: 03/16/17 13:37 Dose: 1 applic Heparin Sodium (Porcine) (Heparin) 5,000 units SC Q12 [facility] Last Admin: 03/16/17 22:00 Dose: 5,000 units Cefepime HCl (Maxipime Iv 2 Gm Premix) 2 gm in 100 mls @ 100 mls/hr IVPB Q12H [facility] Last Admin: 03/17/17 06:00 Dose: 100 mls/hr Amikacin Sulfate 1,065 mg/ (Sodium Chloride) 254.26 mls @ 254.26 mls/hr IVPB Q48H [facility] Last Admin: 03/15/17 14:22 Dose: 254.26 mls/hr Insulin Human Regular (Novolin R) 0 unit SC Q6 TENA PRN Reason: Protocol Last Admin: 03/17/17 07:15 Dose: 6 unit Levetiracetam (Keppra) 500 mg PO Q12 [facility] Last Admin: 03/16/17 22:00 Dose: 500 mg Nystatin (Mycostatin Cream) 0 ea TOP TID [facility] Last Admin: 03/16/17 17:42 Dose: 1 applic Pantoprazole Sodium (Protonix Inj) 40 mg IVP DAILY [facility] Last Admin: 03/16/17 10:38 Dose: 40 mg Phenobarbital (Phenobarbital Inj) 90 mg IV Q8 [facility] Last Admin: 03/17/17 07:15 Dose: 90 mg Potassium Chloride (Potassium Chloride Oral Soln) 20 meq GT ONCE [facility] Last Admin: 03/09/17 13:52 Dose: 20 meq - Labs Labs: 03/17/17 06:34 03/17/17 06:35 PT 13.6 SECONDS (9.7-12.2) H 03/10/17 12:24 INR 1.2 03/10/17 12:24 APTT 32 SECONDS (21-34) 03/10/17 12:24 Assessment and Plan - Assessment and Plan (Free Text) Plan: Pt seen at bedside with resident .examined and labs and chart reviewed . agree with above findings . DR Guzman.
--- NOTE | 2017-03-16 16:45 | CP.PCM.PN ---
Subjective - Date & Time of Evaluation Date of Evaluation: 03/16/17 Time of Evaluation: 08:00 - Subjective Subjective: comatose iv rx in progress Objective - Vital Signs/Intake and Output Vital Signs (last 24 hours): Temp Pulse Resp BP Pulse Ox 98.5 F 92 H 18 128/67 100 03/16/17 16:00 03/16/17 16:00 03/16/17 16:00 03/16/17 16:00 03/16/17 16:00 Intake and Output: 03/16/17 03/16/17 06:59 18:59 Intake Total 755 565 Output Total 950 675 Balance -195 -110 - Medications Medications: Current Medications Acetaminophen (Tylenol 650mg/20.3ml Solution Ud) 650 mg PO Q4 PRN PRN Reason: temp >101 Last Admin: 03/14/17 21:58 Dose: 650 mg Albuterol/Ipratropium (Duoneb 3 Mg/0.5 Mg (3 Ml) Ud) 3 ml INH RQ6 [facility] Last Admin: 03/16/17 13:26 Dose: 3 ml Artificial Tears (Lacri-Lube) 0 gm OS Q4H PRN PRN Reason: Other Last Admin: 03/16/17 10:48 Dose: 1 gm Calcium Acetate (Phoslo) 667 mg GT TIDCC [facility] Last Admin: 03/16/17 11:42 Dose: 667 mg Collagenase (Santyl) 0 gm TOP DAILY [facility] Last Admin: 03/16/17 13:37 Dose: 1 applic Heparin Sodium (Porcine) (Heparin) 5,000 units SC Q12 [facility] Last Admin: 03/16/17 10:38 Dose: 5,000 units Cefepime HCl (Maxipime Iv 2 Gm Premix) 2 gm in 100 mls @ 100 mls/hr IVPB Q12H [facility] Last Admin: 03/16/17 05:17 Dose: 100 mls/hr Amikacin Sulfate 1,065 mg/ (Sodium Chloride) 254.26 mls @ 254.26 mls/hr IVPB Q48H [facility] Last Admin: 03/15/17 14:22 Dose: 254.26 mls/hr Insulin Human Regular (Novolin R) 0 unit SC Q6 TE[facility] PRN Reason: Protocol Last Admin: 03/16/17 11:42 Dose: 4 unit Levetiracetam (Keppra) 500 mg PO Q12 [facility] Last Admin: 03/16/17 10:48 Dose: 500 mg Nystatin (Mycostatin Cream) 0 ea TOP TID [facility] Last Admin: 03/16/17 13:31 Dose: 1 applic Pantoprazole Sodium (Protonix Inj) 40 mg IVP DAILY [facility] Last Admin: 03/16/17 10:38 Dose: 40 mg Phenobarbital (Phenobarbital Inj) 90 mg IV Q8 [facility] Last Admin: 03/16/17 13:31 Dose: 90 mg Potassium Chloride (Potassium Chloride Oral Soln) 20 meq GT ONCE [facility] Last Admin: 03/09/17 13:52 Dose: 20 meq - Labs Labs: 03/16/17 06:04 03/16/17 06:04 PT 13.6 SECONDS (9.7-12.2) H 03/10/17 12:24 INR 1.2 03/10/17 12:24 APTT 32 SECONDS (21-34) 03/10/17 12:24 - Constitutional Appears: Non-toxic, Cachectic, Chronically Ill - Head Exam Head Exam: NORMOCEPHALIC - Eye Exam Eye Exam: PERRL. absent: Scleral icterus - ENT Exam ENT Exam: Mucous Membranes Dry - Neck Exam Neck Exam: absent: Lymphadenopathy - Respiratory Exam Respiratory Exam: Decreased Breath Sounds - Cardiovascular Exam Cardiovascular Exam: REGULAR RHYTHM - GI/Abdominal Exam GI & Abdominal Exam: Distended, Soft Assessment and Plan (1) Cardiac arrest Status: Acute (2) Open wound of right foot with complication Status: Acute (3) Respiratory failure Status: Acute
--- NOTE | 2017-03-16 18:42 | CP.PCM.PN ---
Subjective - Date & Time of Evaluation Date of Evaluation: 03/16/17 Time of Evaluation: 17:15 - Subjective Subjective: Vented Objective - Vital Signs/Intake and Output Vital Signs (last 24 hours): Temp Pulse Resp BP Pulse Ox 98.5 F 92 H 18 128/67 100 03/16/17 16:00 03/16/17 16:00 03/16/17 16:00 03/16/17 16:00 03/16/17 16:00 Intake and Output: 03/16/17 03/16/17 06:59 18:59 Intake Total 755 565 Output Total 950 675 Balance -195 -110 - Medications Medications: Current Medications Acetaminophen (Tylenol 650mg/20.3ml Solution Ud) 650 mg PO Q4 PRN PRN Reason: temp >101 Last Admin: 03/14/17 21:58 Dose: 650 mg Albuterol/Ipratropium (Duoneb 3 Mg/0.5 Mg (3 Ml) Ud) 3 ml INH RQ6 [facility] Last Admin: 03/16/17 13:26 Dose: 3 ml Artificial Tears (Lacri-Lube) 0 gm OS Q4H PRN PRN Reason: Other Last Admin: 03/16/17 17:50 Dose: 1 gm Calcium Acetate (Phoslo) 667 mg GT TIDCC [facility] Last Admin: 03/16/17 17:41 Dose: 667 mg Collagenase (Santyl) 0 gm TOP DAILY [facility] Last Admin: 03/16/17 13:37 Dose: 1 applic Heparin Sodium (Porcine) (Heparin) 5,000 units SC Q12 [facility] Last Admin: 03/16/17 10:38 Dose: 5,000 units Cefepime HCl (Maxipime Iv 2 Gm Premix) 2 gm in 100 mls @ 100 mls/hr IVPB Q12H [facility] Last Admin: 03/16/17 17:41 Dose: 100 mls/hr Amikacin Sulfate 1,065 mg/ (Sodium Chloride) 254.26 mls @ 254.26 mls/hr IVPB Q48H [facility] Last Admin: 03/15/17 14:22 Dose: 254.26 mls/hr Insulin Human Regular (Novolin R) 0 unit SC Q6 [facility] PRN Reason: Protocol Last Admin: 03/16/17 18:04 Dose: 4 unit Levetiracetam (Keppra) 500 mg PO Q12 [facility] Last Admin: 03/16/17 10:48 Dose: 500 mg Nystatin (Mycostatin Cream) 0 ea TOP TID [facility] Last Admin: 03/16/17 17:42 Dose: 1 applic Pantoprazole Sodium (Protonix Inj) 40 mg IVP DAILY [facility] Last Admin: 03/16/17 10:38 Dose: 40 mg Phenobarbital (Phenobarbital Inj) 90 mg IV Q8 [facility] Last Admin: 03/16/17 13:31 Dose: 90 mg Potassium Chloride (Potassium Chloride Oral Soln) 20 meq GT ONCE [facility] Last Admin: 03/09/17 13:52 Dose: 20 meq - Labs Labs: 03/16/17 06:04 03/16/17 06:04 PT 13.6 SECONDS (9.7-12.2) H 03/10/17 12:24 INR 1.2 03/10/17 12:24 APTT 32 SECONDS (21-34) 03/10/17 12:24 - Head Exam Head Exam: ATRAUMATIC - Eye Exam Eye Exam: Normal appearance - ENT Exam ENT Exam: Mucous Membranes Dry - Respiratory Exam Respiratory Exam: Decreased Breath Sounds - Cardiovascular Exam Cardiovascular Exam: +S1, +S2 - GI/Abdominal Exam GI & Abdominal Exam: Normal Bowel Sounds Assessment and Plan (1) Anemia Assessment & Plan: anemia of chronic disease monoclonal protein detected Status: Acute (2) Coagulopathy Assessment & Plan: nutritional Status: Acute
--- NOTE | 2017-03-16 19:44 | CP.PCM.PN ---
Subjective - Date & Time of Evaluation Date of Evaluation: 03/16/17 Time of Evaluation: 12:20 - Subjective Subjective: clinically same Objective - Vital Signs/Intake and Output Vital Signs (last 24 hours): Temp Pulse Resp BP Pulse Ox 98.5 F 92 H 18 128/67 100 03/16/17 16:00 03/16/17 16:00 03/16/17 16:00 03/16/17 16:00 03/16/17 16:00 Intake and Output: 03/16/17 03/17/17 18:59 06:59 Intake Total 565 Output Total 675 Balance -110 - Medications Medications: Current Medications Acetaminophen (Tylenol 650mg/20.3ml Solution Ud) 650 mg PO Q4 PRN PRN Reason: temp >101 Last Admin: 03/14/17 21:58 Dose: 650 mg Albuterol/Ipratropium (Duoneb 3 Mg/0.5 Mg (3 Ml) Ud) 3 ml INH RQ6 [facility] Last Admin: 03/16/17 19:40 Dose: 3 ml Artificial Tears (Lacri-Lube) 0 gm OS Q4H PRN PRN Reason: Other Last Admin: 03/16/17 17:50 Dose: 1 gm Calcium Acetate (Phoslo) 667 mg GT TIDCC [facility] Last Admin: 03/16/17 17:41 Dose: 667 mg Collagenase (Santyl) 0 gm TOP DAILY [facility] Last Admin: 03/16/17 13:37 Dose: 1 applic Heparin Sodium (Porcine) (Heparin) 5,000 units SC Q12 [facility] Last Admin: 03/16/17 10:38 Dose: 5,000 units Cefepime HCl (Maxipime Iv 2 Gm Premix) 2 gm in 100 mls @ 100 mls/hr IVPB Q12H [facility] Last Admin: 03/16/17 17:41 Dose: 100 mls/hr Amikacin Sulfate 1,065 mg/ (Sodium Chloride) 254.26 mls @ 254.26 mls/hr IVPB Q48H [facility] Last Admin: 03/15/17 14:22 Dose: 254.26 mls/hr Insulin Human Regular (Novolin R) 0 unit SC Q6 [facility] PRN Reason: Protocol Last Admin: 03/16/17 18:04 Dose: 4 unit Levetiracetam (Keppra) 500 mg PO Q12 [facility] Last Admin: 03/16/17 10:48 Dose: 500 mg Nystatin (Mycostatin Cream) 0 ea TOP TID [facility] Last Admin: 03/16/17 17:42 Dose: 1 applic Pantoprazole Sodium (Protonix Inj) 40 mg IVP DAILY [facility] Last Admin: 03/16/17 10:38 Dose: 40 mg Phenobarbital (Phenobarbital Inj) 90 mg IV Q8 [facility] Last Admin: 03/16/17 13:31 Dose: 90 mg Potassium Chloride (Potassium Chloride Oral Soln) 20 meq GT ONCE [facility] Last Admin: 03/09/17 13:52 Dose: 20 meq - Labs Labs: 03/16/17 06:04 03/16/17 06:04 PT 13.6 SECONDS (9.7-12.2) H 03/10/17 12:24 INR 1.2 03/10/17 12:24 APTT 32 SECONDS (21-34) 03/10/17 12:24 - Constitutional Appears: Well - Head Exam Head Exam: ATRAUMATIC, NORMAL INSPECTION, NORMOCEPHALIC - Eye Exam Eye Exam: EOMI, Normal appearance, PERRL Pupil Exam: NORMAL ACCOMODATION, PERRL - ENT Exam ENT Exam: Mucous Membranes Moist, Normal Exam - Neck Exam Neck Exam: Full ROM, Normal Inspection. absent: Lymphadenopathy - Respiratory Exam Respiratory Exam: Clear to Ausculation Bilateral, NORMAL BREATHING PATTERN - Cardiovascular Exam Cardiovascular Exam: REGULAR RHYTHM, +S1, +S2. absent: Murmur - GI/Abdominal Exam GI & Abdominal Exam: Soft, Normal Bowel Sounds. absent: Tenderness - Rectal Exam Rectal Exam: NORMAL INSPECTION - Exam Exam: Circumcision, NORMAL INSPECTION External exam: NORMAL EXTERNAL EXAM Speculum exam: NORMAL SPECULUM EXAM Bimanual exam: NORMAL BIMANUAL EXAM - Extremities Exam Extremities Exam: Full ROM, Normal Capillary Refill, Normal Inspection. absent : Joint Swelling, Pedal Edema - Back Exam Back Exam: NORMAL INSPECTION - Skin Skin Exam: Dry, Intact, Normal Color, Warm Assessment and Plan (1) Anemia Status: Acute (2) CHF (congestive heart failure) Status: Acute (3) Cardiac arrest Status: Acute (4) Coagulopathy Status: Acute (5) Open wound of right foot with complication Status: Acute (6) Respiratory failure Status: Acute (7) SAUNDRA (acute kidney injury) Status: Resolved - Assessment and Plan (Free Text) Plan: I spoke to the sister Ceci who is a nurse Patient is not having any movement most likely anoxic CT scan done discussed the results with the patient's family most likely anoxic Patient's family wants to wait until another family member comes from the [place] before considering DNR and DNI versus going with the aggressive management Continue IV antibiotics Ventilatory management as per the global account director Medication as ordered,
[2017-03-17] MEDS: (Novolin R) Insulin Human Regular 100 units/ml vial SC SCH ×4 (01:50→17:46)
[2017-03-17] MEDS: Albuterol-Ipratrop 3 mg / 0.5 (3 ml) UD INH SCH ×4 (02:11→19:25)
[2017-03-17 05:19] LABS: ABG ALLEN TEST POS; ABG MECHANICAL RATE 16; ARTERIAL BLOOD GAS MODE PRVC; ARTERIAL BLOOD HGB O2 SAT 96.2 % (95.0-98.0); ATERIAL BLOOD GAS PEEP 5; CARBOXYHEMOGLOBIN 1.3 % (0.5-1.5); DRAW SITE RR; HHB 1.3 % (0.0-5.0); METHEMOGLOBIN 1.2 % (0.0-3.0)
[2017-03-17] MEDS: Cefepime IV 2 gm in Dextrose 2 GM/100 ML BAG IVPB SCH ×2 (06:00→17:06)
[2017-03-17 06:41] LABS: BASO % 0.5 % (0.0-2.0); EOS # 0.2 K/uL (0.0-0.7); EOS % 2.3 % (0.0-4.0); HEMATOCRIT 29.3 % (35.0-51.0); LYMPH # 1.1 K/uL (1.0-4.3); LYMPH % 11.2 % (20.0-40.0); MEAN CELL VOLUME 91.6 fL (80.0-94.0); MEAN CORPUSCULAR HEMOGLOBIN 29.8 pg (27.0-31.0); MEAN CORPUSCULAR HGB CONC 32.5 g/dL (33.0-37.0); MEAN PLATELET VOLUME 10.5 fL (7.2-11.7); MONO # 0.5 K/uL (0.0-0.8); MONO % 5.3 % (0.0-10.0); RED CELL DISTRIBUTION WIDTH 15.8 % (11.5-14.5); WHITE BLOOD COUNT 9.8 K/uL (4.8-10.8)
[2017-03-17 06:57] LABS: POTASSIUM 3.9 mmol/L (3.6-5.2)
[2017-03-17 06:59] LABS: ALB/GLOB RATIO 0.9 (1.0-2.1); BILIRUBIN,TOTAL 0.6 mg/dL (0.2-1.3); TOTAL PROTEIN 6.8 g/dL (6.3-8.3)
[2017-03-17 07:00] LABS: CALCIUM 8.3 mg/dl (8.6-10.4); MAGNESIUM 2.5 mg/dL (1.6-2.3); PHOSPHOROUS 3.6 mg/dL (2.5-4.5)
--- NOTE | 2017-03-17 08:47 | CP.PCM.PN ---
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 Objective - Vital Signs/Intake and Output Vital Signs (last 24 hours): Temp Pulse Resp BP Pulse Ox 99.1 F 80 16 121/69 100 03/17/17 08:00 03/17/17 08:00 03/17/17 08:00 03/17/17 08:00 03/17/17 08:00 Intake and Output: 03/17/17 03/17/17 06:59 18:59 Intake Total 520 120 Output Total 1260 180 Balance -740 -60 - Medications Medications: Current Medications Acetaminophen (Tylenol 650mg/20.3ml Solution Ud) 650 mg PO Q4 PRN PRN Reason: temp >101 Last Admin: 03/14/17 21:58 Dose: 650 mg Albuterol/Ipratropium (Duoneb 3 Mg/0.5 Mg (3 Ml) Ud) 3 ml INH RQ6 [facility] Last Admin: 03/17/17 07:15 Dose: 3 ml Artificial Tears (Lacri-Lube) 0 gm OS Q4H PRN PRN Reason: Other Last Admin: 03/16/17 17:50 Dose: 1 gm Calcium Acetate (Phoslo) 667 mg GT TIDCC [facility] Last Admin: 03/17/17 07:57 Dose: 667 mg Collagenase (Santyl) 0 gm TOP DAILY [facility] Last Admin: 03/16/17 13:37 Dose: 1 applic Heparin Sodium (Porcine) (Heparin) 5,000 units SC Q12 [facility] Last Admin: 03/16/17 22:00 Dose: 5,000 units Cefepime HCl (Maxipime Iv 2 Gm Premix) 2 gm in 100 mls @ 100 mls/hr IVPB Q12H [facility] Last Admin: 03/17/17 06:00 Dose: 100 mls/hr Amikacin Sulfate 1,065 mg/ (Sodium Chloride) 254.26 mls @ 254.26 mls/hr IVPB Q48H [facility] Last Admin: 03/15/17 14:22 Dose: 254.26 mls/hr Insulin Human Regular (Novolin R) 0 unit SC Q6 [facility] PRN Reason: Protocol Last Admin: 03/17/17 07:15 Dose: 6 unit Levetiracetam (Keppra) 500 mg PO Q12 [facility] Last Admin: 03/16/17 22:00 Dose: 500 mg Nystatin (Mycostatin Cream) 0 ea TOP TID [facility] Last Admin: 03/16/17 17:42 Dose: 1 applic Pantoprazole Sodium (Protonix Inj) 40 mg IVP DAILY [facility] Last Admin: 03/16/17 10:38 Dose: 40 mg Phenobarbital (Phenobarbital Inj) 90 mg IV Q8 [facility] Last Admin: 03/17/17 07:15 Dose: 90 mg Potassium Chloride (Potassium Chloride Oral Soln) 20 meq GT ONCE [facility] Last Admin: 03/09/17 13:52 Dose: 20 meq - Labs Labs: 03/17/17 06:34 03/17/17 06:35 PT 13.6 SECONDS (9.7-12.2) H 03/10/17 12:24 INR 1.2 03/10/17 12:24 APTT 32 SECONDS (21-34) 03/10/17 12:24 <Kunal Mike - Last Filed: 03/17/17 12:03> Subjective - Subjective Subjective: 52 yo male seen at bedside in ICU this morning with attending Dr. 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 Patient unable to communicate. Dressing to right foot appears clean dry and intact. Patient seen to not be wearing his multipodus boots at this time Objective - Vital Signs/Intake and Output Vital Signs (last 24 hours): Temp Pulse Resp BP Pulse Ox 99.1 F 87 16 115/69 100 03/17/17 08:00 03/17/17 11:00 03/17/17 11:00 03/17/17 11:00 03/17/17 11:00 Intake and Output: 03/17/17 03/17/17 06:59 18:59 Intake Total 520 225 Output Total 1260 460 Balance -740 -235 - Medications Medications: Current Medications Acetaminophen (Tylenol 650mg/20.3ml Solution Ud) 650 mg PO Q4 PRN PRN Reason: temp >101 Last Admin: 03/14/17 21:58 Dose: 650 mg Albuterol/Ipratropium (Duoneb 3 Mg/0.5 Mg (3 Ml) Ud) 3 ml INH RQ6 [facility] Last Admin: 03/17/17 07:15 Dose: 3 ml Artificial Tears (Lacri-Lube) 0 gm OS Q4H PRN PRN Reason: Other Last Admin: 03/17/17 09:11 Dose: 3.5 gm Calcium Acetate (Phoslo) 667 mg GT TIDCC [facility] Last Admin: 03/17/17 07:57 Dose: 667 mg Collagenase (Santyl) 0 gm TOP DAILY [facility] Last Admin: 03/17/17 09:11 Dose: 1 applic Heparin Sodium (Porcine) (Heparin) 5,000 units SC Q12 [facility] Last Admin: 03/17/17 09:12 Dose: 5,000 units Cefepime HCl (Maxipime Iv 2 Gm Premix) 2 gm in 100 mls @ 100 mls/hr IVPB Q12H [facility] Last Admin: 03/17/17 06:00 Dose: 100 mls/hr Amikacin Sulfate 1,065 mg/ (Sodium Chloride) 254.26 mls @ 254.26 mls/hr IVPB Q48H [facility] Last Admin: 03/15/17 14:22 Dose: 254.26 mls/hr Insulin Human Regular (Novolin R) 0 unit SC Q6 [facility] PRN Reason: Protocol Last Admin: 03/17/17 07:15 Dose: 6 unit Levetiracetam (Keppra) 500 mg PO Q12 [facility] Last Admin: 03/17/17 09:12 Dose: 500 mg Nystatin (Mycostatin Cream) 0 ea TOP TID [facility] Last Admin: 03/17/17 09:11 Dose: 1 applic Pantoprazole Sodium (Protonix Inj) 40 mg IVP DAILY [facility] Last Admin: 03/17/17 09:12 Dose: 40 mg Phenobarbital (Phenobarbital Inj) 90 mg IV Q8 [facility] Last Admin: 03/17/17 07:15 Dose: 90 mg Potassium Chloride (Potassium Chloride Oral Soln) 20 meq GT ONCE [facility] Last Admin: 03/09/17 13:52 Dose: 20 meq - Labs Labs: 03/17/17 06:34 03/17/17 06:35 PT 13.6 SECONDS (9.7-12.2) H 03/10/17 12:24 INR 1.2 03/10/17 12:24 APTT 32 SECONDS (21-34) 03/10/17 12:24 - Constitutional Appears: Chronically Ill - Extremities Exam Additional comments: Right lower extremity exam DERM: Open wound noted to medial aspect of right Hallux amputation site measuring 3.5cm x 2cm x 0.6cm with mostly fibrotic base. no purulent drainage noted, Wen wound erythema with necrotic edges measures <1cm margin. minimal Mal-odor is present. VASC: Palpable DP noted at 1/4, non-palpable PT noted. [employer] less than 3 seconds to all digits noted. - Neurological Exam Neurological Exam: Awake - Psychiatric Exam Psychiatric exam: Flat Affect Assessment and Plan - Assessment and Plan (Free Text) Assessment: 52 yo male seen at bedside in the ICU for open wound to right Hallux amputation site Plan: Patient seen at bedside with attending Dr. Guzman WBC: 9.8, afebrile Wound dressed with Santyl and DSD No surgical intervention planned at this time Podiatry will continue to follow while patient in house
[2017-03-17] MEDS: Nystatin 100,000 Units/gm Cream(15 gm) TOP SCH ×3 (09:11→17:07)
[2017-03-17] MEDS: Collagenase 250 Units/gm Ointment(30 gm) TOP SCH (09:11)
[2017-03-17] MEDS: White Petrolatum/Mineral Oil Ophth Oint(3.5 gm) OS PRN (09:11)
[2017-03-17] MEDS: levETIRAcetam 100 mg/ml (5ml) Oral Syringe PO SCH ×2 (09:12→21:06)
--- NOTE | 2017-03-17 10:02 | RAD ---
HISTORY: on vent COMPARISON: Chest x-ray performed 03/16/17 TECHNIQUE: Chest, one view. FINDINGS: Endotracheal tube terminates approximately 4.9 cm above the samuel. Nasogastric tube extends expected location of the stomach. The left costophrenic angle is excluded from view. LUNGS: Mild pulmonary venous congestion. PLEURA: No significant pleural effusion identified. No definite pneumothorax . CARDIOVASCULAR: Cardiomegaly.Mediastinal prominence OSSEOUS STRUCTURES: Degenerative changes of the spine. VISUALIZED UPPER ABDOMEN: Unremarkable. OTHER FINDINGS: None. IMPRESSION: Support lines and tubes as above. Cardiomegaly. Mild pulmonary venous congestion. Mediastinal prominence.
--- NOTE | 2017-03-17 10:41 | CP.PCM.PN ---
Subjective - Date & Time of Evaluation Date of Evaluation: 03/17/17 Time of Evaluation: 10:38 - Subjective Subjective: appears same- no neurological improvement renal function about same lytes acceptable HTN controlled Objective - Vital Signs/Intake and Output Vital Signs (last 24 hours): Temp Pulse Resp BP Pulse Ox 99.1 F 80 16 121/69 100 03/17/17 08:00 03/17/17 08:00 03/17/17 08:00 03/17/17 08:00 03/17/17 08:00 Intake and Output: 03/17/17 03/17/17 06:59 18:59 Intake Total 520 120 Output Total 1260 180 Balance -740 -60 - Medications Medications: Current Medications Acetaminophen (Tylenol 650mg/20.3ml Solution Ud) 650 mg PO Q4 PRN PRN Reason: temp >101 Last Admin: 03/14/17 21:58 Dose: 650 mg Albuterol/Ipratropium (Duoneb 3 Mg/0.5 Mg (3 Ml) Ud) 3 ml INH RQ6 [facility] Last Admin: 03/17/17 07:15 Dose: 3 ml Artificial Tears (Lacri-Lube) 0 gm OS Q4H PRN PRN Reason: Other Last Admin: 03/17/17 09:11 Dose: 3.5 gm Calcium Acetate (Phoslo) 667 mg GT TIDCC [facility] Last Admin: 03/17/17 07:57 Dose: 667 mg Collagenase (Santyl) 0 gm TOP DAILY [facility] Last Admin: 03/17/17 09:11 Dose: 1 applic Heparin Sodium (Porcine) (Heparin) 5,000 units SC Q12 [facility] Last Admin: 03/17/17 09:12 Dose: 5,000 units Cefepime HCl (Maxipime Iv 2 Gm Premix) 2 gm in 100 mls @ 100 mls/hr IVPB Q12H [facility] Last Admin: 03/17/17 06:00 Dose: 100 mls/hr Amikacin Sulfate 1,065 mg/ (Sodium Chloride) 254.26 mls @ 254.26 mls/hr IVPB Q48H [facility] Last Admin: 03/15/17 14:22 Dose: 254.26 mls/hr Insulin Human Regular (Novolin R) 0 unit SC Q6 [facility] PRN Reason: Protocol Last Admin: 03/17/17 07:15 Dose: 6 unit Levetiracetam (Keppra) 500 mg PO Q12 [facility] Last Admin: 03/17/17 09:12 Dose: 500 mg Nystatin (Mycostatin Cream) 0 ea TOP TID [facility] Last Admin: 03/17/17 09:11 Dose: 1 applic Pantoprazole Sodium (Protonix Inj) 40 mg IVP DAILY [facility] Last Admin: 03/17/17 09:12 Dose: 40 mg Phenobarbital (Phenobarbital Inj) 90 mg IV Q8 [facility] Last Admin: 03/17/17 07:15 Dose: 90 mg Potassium Chloride (Potassium Chloride Oral Soln) 20 meq GT ONCE [facility] Last Admin: 03/09/17 13:52 Dose: 20 meq - Labs Labs: 03/17/17 06:34 03/17/17 06:35 PT 13.6 SECONDS (9.7-12.2) H 03/10/17 12:24 INR 1.2 03/10/17 12:24 APTT 32 SECONDS (21-34) 03/10/17 12:24 - Constitutional Appears: No Acute Distress, Chronically Ill - Head Exam Head Exam: ATRAUMATIC, NORMAL INSPECTION - Neck Exam Neck Exam: Normal Inspection. absent: Tenderness - Respiratory Exam Respiratory Exam: Clear to Ausculation Bilateral, NORMAL BREATHING PATTERN - Cardiovascular Exam Cardiovascular Exam: REGULAR RHYTHM, +S1 - GI/Abdominal Exam GI & Abdominal Exam: Soft. absent: Tenderness - Extremities Exam Extremities Exam: Normal Inspection. absent: Tenderness - Neurological Exam Neurological Exam: Altered, Motor Sensory Deficit - Skin Skin Exam: Dry, Warm Assessment and Plan (1) SAUNDRA (acute kidney injury) Status: Resolved (2) CHF (congestive heart failure) Status: Acute (3) Cardiac arrest Status: Acute (4) Open wound of right foot with complication Status: Acute (5) Respiratory failure Status: Acute - Assessment and Plan (Free Text) Plan: Continue to monitor lytes neuro checks as per ICU
[2017-03-17] MEDS: AMIKACIN SULFATE IVPB SCH (12:07)
[2017-03-17] MEDS: SODIUM CHLORIDE 0.9% IVPB SCH (12:07)
--- NOTE | 2017-03-17 12:54 | PN ---
LOCATION: ICU 17. SUBJECTIVE: This is a 52-year-old male, seen early in rounds today without significant clinical changes. He is still intubated with an NG tube feeding in place, no reported significant clinical changes. The entire chart is reviewed including, but not limited to the most recent lab and the radiology study results, current and the previous medication list and current and the previous medical events, and hemoglobin today dropped to 9.5 with hematocrit of 29.3, but normal platelet count with abnormal ABGs with BUN is still elevated to 49, creatinine 2.4, blood glucose level 266 with magnesium 2.5, elevated with low albumin of 3.3. Today's chest x-ray report is still pending. PHYSICAL EXAMINATION: GENERAL: A 52-year-old male, intubated and sedated, not responding to verbal stimuli. VITAL SIGNS: Low-grade temperature of 100.7, pulse of 92, blood pressure of 128/68. HEENT: Shows pale, dry oral mucous membranes. Nonicteric sclerae. LUNGS: Few scattered crepitations with decreased air entry at bases. HEART: Positive S1 and S2. ABDOMEN: Soft. Bowel sounds are present. NG tube is in place. EXTREMITIES: Lower extremities have edematous changes. No clubbing or cyanosis. IMPRESSION: 1. Status post cardiac arrest. 2. Respiratory failure with pneumonia, intubated to vent. 3. Malnutrition. 4. Anemia secondary to above. 5. Poorly controlled diabetes mellitus. 6. Reported an open wound of the right foot with complications and infectious process and discharge. 7. Acute renal failure. SUGGESTION: 1. Continue current management. 2. Again, awaiting family consent for potential PEG insertion. Yola Sim MD cc: Yola Sim MD
--- NOTE | 2017-03-17 16:01 | CP.PCM.PN ---
Subjective - Date & Time of Evaluation Date of Evaluation: 03/17/17 Time of Evaluation: 21:30 - Subjective Subjective: clinically same. Objective - Vital Signs/Intake and Output Vital Signs (last 24 hours): Temp Pulse Resp BP Pulse Ox 99.4 F 96 H 16 136/74 100 03/17/17 12:00 03/17/17 14:00 03/17/17 14:00 03/17/17 14:00 03/17/17 14:00 Intake and Output: 03/17/17 03/17/17 06:59 18:59 Intake Total 520 680 Output Total 1260 730 Balance -740 -50 - Medications Medications: Current Medications Acetaminophen (Tylenol 650mg/20.3ml Solution Ud) 650 mg PO Q4 PRN PRN Reason: temp >101 Last Admin: 03/14/17 21:58 Dose: 650 mg Albuterol/Ipratropium (Duoneb 3 Mg/0.5 Mg (3 Ml) Ud) 3 ml INH RQ6 [facility] Last Admin: 03/17/17 13:28 Dose: 3 ml Artificial Tears (Lacri-Lube) 0 gm OS Q4H PRN PRN Reason: Other Last Admin: 03/17/17 09:11 Dose: 3.5 gm Calcium Acetate (Phoslo) 667 mg GT TIDCC [facility] Last Admin: 03/17/17 12:07 Dose: 667 mg Collagenase (Santyl) 0 gm TOP DAILY [facility] Last Admin: 03/17/17 09:11 Dose: 1 applic Heparin Sodium (Porcine) (Heparin) 5,000 units SC Q12 [facility] Last Admin: 03/17/17 09:12 Dose: 5,000 units Cefepime HCl (Maxipime Iv 2 Gm Premix) 2 gm in 100 mls @ 100 mls/hr IVPB Q12H [facility] Last Admin: 03/17/17 06:00 Dose: 100 mls/hr Amikacin Sulfate 1,065 mg/ (Sodium Chloride) 254.26 mls @ 254.26 mls/hr IVPB Q48H [facility] Last Admin: 03/17/17 12:07 Dose: 254.26 mls/hr Insulin Human Regular (Novolin R) 0 unit SC Q6 [facility] PRN Reason: Protocol Last Admin: 03/17/17 12:09 Dose: 2 unit Levetiracetam (Keppra) 500 mg PO Q12 [facility] Last Admin: 03/17/17 09:12 Dose: 500 mg Nystatin (Mycostatin Cream) 0 ea TOP TID [facility] Last Admin: 03/17/17 14:02 Dose: 1 applic Pantoprazole Sodium (Protonix Inj) 40 mg IVP DAILY [facility] Last Admin: 03/17/17 09:12 Dose: 40 mg Phenobarbital (Phenobarbital Inj) 90 mg IV Q8 [facility] Last Admin: 03/17/17 14:02 Dose: 90 mg Potassium Chloride (Potassium Chloride Oral Soln) 20 meq GT ONCE [facility] Last Admin: 03/09/17 13:52 Dose: 20 meq - Labs Labs: 03/17/17 06:34 03/17/17 06:35 PT 13.6 SECONDS (9.7-12.2) H 03/10/17 12:24 INR 1.2 03/10/17 12:24 APTT 32 SECONDS (21-34) 03/10/17 12:24 - Constitutional Appears: Well - Head Exam Head Exam: ATRAUMATIC, NORMAL INSPECTION, NORMOCEPHALIC - Eye Exam Eye Exam: EOMI, Normal appearance, PERRL Pupil Exam: NORMAL ACCOMODATION, PERRL - ENT Exam ENT Exam: Mucous Membranes Moist, Normal Exam - Neck Exam Neck Exam: Full ROM, Normal Inspection. absent: Lymphadenopathy - Respiratory Exam Respiratory Exam: Clear to Ausculation Bilateral, NORMAL BREATHING PATTERN - Cardiovascular Exam Cardiovascular Exam: REGULAR RHYTHM, +S1, +S2. absent: Murmur - GI/Abdominal Exam GI & Abdominal Exam: Soft, Normal Bowel Sounds. absent: Tenderness - Rectal Exam Rectal Exam: NORMAL INSPECTION - Exam Exam: Circumcision, NORMAL INSPECTION External exam: NORMAL EXTERNAL EXAM Speculum exam: NORMAL SPECULUM EXAM Bimanual exam: NORMAL BIMANUAL EXAM - Extremities Exam Extremities Exam: Full ROM, Normal Capillary Refill, Normal Inspection. absent : Joint Swelling, Pedal Edema - Back Exam Back Exam: NORMAL INSPECTION - Skin Skin Exam: Dry, Intact, Normal Color, Warm Assessment and Plan (1) Anemia Status: Acute (2) CHF (congestive heart failure) Status: Acute (3) Cardiac arrest Status: Acute (4) Coagulopathy Status: Acute (5) Open wound of right foot with complication Status: Acute (6) Respiratory failure Status: Acute (7) SAUNDRA (acute kidney injury) Status: Resolved - Assessment and Plan (Free Text) Plan: Patient examined. Patient unresponsive on ventilator. Continue cefepime, amikacin. Continue all supportive medications.
--- NOTE | 2017-03-17 18:57 | CP.PCM.PN ---
Subjective - Date & Time of Evaluation Date of Evaluation: 03/17/17 Time of Evaluation: 17:15 - Subjective Subjective: Vented Objective - Vital Signs/Intake and Output Vital Signs (last 24 hours): Temp Pulse Resp BP Pulse Ox 100.4 F H 92 H 17 127/66 100 03/17/17 16:00 03/17/17 18:00 03/17/17 18:00 03/17/17 18:00 03/17/17 18:00 Intake and Output: 03/17/17 03/17/17 06:59 18:59 Intake Total 520 1020 Output Total 1260 1065 Balance -740 -45 - Medications Medications: Current Medications Acetaminophen (Tylenol 650mg/20.3ml Solution Ud) 650 mg PO Q4 PRN PRN Reason: temp >101 Last Admin: 03/14/17 21:58 Dose: 650 mg Albuterol/Ipratropium (Duoneb 3 Mg/0.5 Mg (3 Ml) Ud) 3 ml INH RQ6 [facility] Last Admin: 03/17/17 13:28 Dose: 3 ml Artificial Tears (Lacri-Lube) 0 gm OS Q4H PRN PRN Reason: Other Last Admin: 03/17/17 09:11 Dose: 3.5 gm Calcium Acetate (Phoslo) 667 mg GT TIDCC [facility] Last Admin: 03/17/17 16:54 Dose: 667 mg Collagenase (Santyl) 0 gm TOP DAILY [facility] Last Admin: 03/17/17 09:11 Dose: 1 applic Heparin Sodium (Porcine) (Heparin) 5,000 units SC Q12 [facility] Last Admin: 03/17/17 09:12 Dose: 5,000 units Cefepime HCl (Maxipime Iv 2 Gm Premix) 2 gm in 100 mls @ 100 mls/hr IVPB Q12H [facility] Last Admin: 03/17/17 17:06 Dose: 100 mls/hr Amikacin Sulfate 1,065 mg/ (Sodium Chloride) 254.26 mls @ 254.26 mls/hr IVPB Q48H [facility] Last Admin: 03/17/17 12:07 Dose: 254.26 mls/hr Insulin Human Regular (Novolin R) 0 unit SC Q6 [facility] PRN Reason: Protocol Last Admin: 03/17/17 17:46 Dose: 4 unit Levetiracetam (Keppra) 500 mg PO Q12 [facility] Last Admin: 03/17/17 09:12 Dose: 500 mg Nystatin (Mycostatin Cream) 0 ea TOP TID [facility] Last Admin: 03/17/17 17:07 Dose: 1 applic Pantoprazole Sodium (Protonix Inj) 40 mg IVP DAILY [facility] Last Admin: 03/17/17 09:12 Dose: 40 mg Phenobarbital (Phenobarbital Inj) 90 mg IV Q8 [facility] Last Admin: 03/17/17 14:02 Dose: 90 mg Potassium Chloride (Potassium Chloride Oral Soln) 20 meq GT ONCE [facility] Last Admin: 03/09/17 13:52 Dose: 20 meq - Labs Labs: 03/17/17 06:34 03/17/17 06:35 PT 13.6 SECONDS (9.7-12.2) H 03/10/17 12:24 INR 1.2 03/10/17 12:24 APTT 32 SECONDS (21-34) 03/10/17 12:24 - Head Exam Head Exam: ATRAUMATIC - Eye Exam Eye Exam: Normal appearance - ENT Exam ENT Exam: Mucous Membranes Dry - Respiratory Exam Respiratory Exam: NORMAL BREATHING PATTERN - Cardiovascular Exam Cardiovascular Exam: +S1, +S2 - GI/Abdominal Exam GI & Abdominal Exam: Normal Bowel Sounds Assessment and Plan (1) Anemia Assessment & Plan: anemia of chronic disease monoclonal protein detected Status: Acute (2) Coagulopathy Assessment & Plan: nutritional Status: Acute
--- NOTE | 2017-03-17 22:13 | CP.CCUPN ---
CCU Subjective - Physician Review Events Since Last Encounter (Free Text): 03/17/17 22:12 patient is unresponsive. On ventilator. Poor prognosis. Patient family is at bedside. I spoke to them in details. family will make the decision about further management. I gave the options about hospice, comfort care, and a tracheostomy and aggressive treatment. Family will make the decision. Critical Care Time Spent (in minutes): 45 CCU Objective - Vital Signs / Intake & Output Vital Signs (Last 4 hours): Vital Signs Temp Pulse Resp BP Pulse Ox 03/17/17 21:00 88 16 116/60 100 03/17/17 20:34 86 16 100 03/17/17 20:32 89 16 134/69 100 03/17/17 20:31 134/69 03/17/17 20:00 99 F 90 19 134/69 100 03/17/17 19:06 83 16 88/50 L 100 03/17/17 19:01 83 16 85/46 L 100 03/17/17 19:00 83 16 100 Intake and Output (Last 8hrs): Intake & Output 03/17/17 03/17/17 03/17/17 06:59 14:59 22:59 Intake Total 380 680 445 Output Total 830 730 750 Balance -450 -50 -305 Weight 151 lb 7.321 oz Intake: Intake, IV Amount 100 250 100 Left Antecubital 100 Left Hand 250 100 Tube Feeding 280 280 245 Other 150 100 Output: Urine 830 730 750 Urethral (Grant) 830 730 750 Other: # Bowel Movements 0 0 - Physical Exam Head: Positive for: Atraumatic, Normocephalic Mouth: Positive for: Moist Mucous Membranes Respiratory/Chest: Positive for: Rales Cardiovascular: Positive for: Regular Rate and Rhythm, Normal S1, S2 Abdomen: Positive for: Normal Bowel Sounds. 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 Negative for: Alert, Oriented x 3 - Medications Active Medications: Active Medications Generic Name Dose Route Start Last Admin Trade Name Freq PRN Reason Stop Dose Admin Acetaminophen 650 mg 03/05/17 22:55 03/14/17 21:58 Tylenol 650mg/20.3ml Solution Ud PO 650 mg Q4 PRN Administration temp >101 Albuterol/Ipratropium 3 ml 03/10/17 20:00 03/17/17 19:25 Duoneb 3 Mg/0.5 Mg (3 Ml) Ud INH 3 ml RQ6 TENA Administration Artificial Tears 0 gm 03/06/17 10:04 03/17/17 09:11 Lacri-Lube OS 3.5 gm Q4H PRN Administration Other Calcium Acetate 667 mg 03/08/17 10:00 03/17/17 16:54 Phoslo GT 667 mg TIDCC TENA Administration Collagenase 0 gm 03/10/17 10:00 03/17/17 09:11 Santyl TOP 1 applic DAILY TENA Administration Heparin Sodium (Porcine) 5,000 units 03/14/17 22:00 03/17/17 21:06 Heparin SC 5,000 units Q12 TENA Administration Cefepime HCl 2 gm in 100 mls @ 100 mls/hr 03/13/17 18:00 03/17/17 17:06 Maxipime Iv 2 Gm Premix IVPB 100 mls/hr Q12H TENA Administration Amikacin Sulfate 1,065 mg/ 254.26 mls @ 254.26 mls/hr 03/15/17 13:00 12:07 Sodium Chloride IVPB 254.26 mls/hr Q48H TENA Administration Insulin Human Regular 0 unit 03/14/17 00:00 03/17/17 17:46 Novolin R SC 4 unit Q6 TENA Administration Protocol Levetiracetam 500 mg 03/14/17 22:00 03/17/17 21:06 Keppra PO 500 mg Q12 TENA Administration Nystatin 0 ea 03/16/17 10:00 03/17/17 17:07 Mycostatin Cream TOP 1 applic TID TENA Administration Pantoprazole Sodium 40 mg 03/05/17 10:00 03/17/17 09:12 Protonix Inj IVP 40 mg DAILY TENA Administration Phenobarbital 90 mg 03/10/17 06:00 03/17/17 21:08 Phenobarbital Inj IV 90 mg Q8 TENA Administration Potassium Chloride 20 meq 03/09/17 13:15 03/09/17 13:52 Potassium Chloride Oral Soln GT 20 meq ONCE TENA Administration - Patient Studies Lab Studies: Microbiology Studies 03/13/17 17:00 Blood Culture - Preliminary Blood NO GROWTH AFTER 4 DAYS 03/13/17 17:00 Blood Culture - Preliminary Blood NO GROWTH AFTER 4 DAYS Lab Studies 03/17/17 03/17/17 03/17/17 Range/Units 17:34 11:51 06:35 WBC (4.8-10.8) K/uL RBC (4.40-5.90) Mil/uL Hgb (12.0-18.0) g/dL Hct (35.0-51.0) % MCV (80.0-94.0) fL MCH (27.0-31.0) pg MCHC (33.0-37.0) g/dL RDW (11.5-14.5) % Plt Count (130-400) K/uL MPV (7.2-11.7) fL Neut % (Auto) (50.0-75.0) % Lymph % (Auto) (20.0-40.0) % [place] % (Auto) (0.0-10.0) % Eos % (Auto) (0.0-4.0) % Baso % (Auto) (0.0-2.0) % Neut # (1.8-7.0) K/uL Lymph # (1.0-4.3) K/uL [place] # (0.0-0.8) K/uL Eos # (0.0-0.7) K/uL Baso # (0.0-0.2) K/uL Puncture Site pCO2 (35-45) mm/Hg pO2 (80-100) mm/Hg HCO3 (21-28) mmol/L ABG pH (7.35-7.45) ABG Total CO2 (22-28) mmol/L ABG O2 Saturation (95-98) % ABG Base Excess (-2.0-3.0) mmol/L ABG Hemoglobin (11.7-17.4) g/dL ABG Carboxyhemoglobin (0.5-1.5) % POC ABG HHb (Measured) (0.0-5.0) % ABG Methemoglobin (0.0-3.0) % Reji Test A-a O2 Difference mm/Hg Respiratory Index Hgb O2 Saturation (95.0-98.0) % Vent Mode Mechanical Rate FiO2 % Tidal Volume PEEP Sodium 148 (132-148) mmol/L Potassium 3.9 (3.6-5.2) mmol/L Chloride 112 H (98-107) mmol/L Carbon Dioxide 26 (22-30) mmol/L Anion Gap 14 (10-20) BUN 49 H (9-20) mg/dL Creatinine 2.4 H (0.8-1.5) mg/dL Est GFR ( Amer) 35 Est GFR (Non-Af Amer) 29 POC Glucose (mg/dL) 233 H 194 H (65-110) mg/dL Random Glucose 249 H (75-110) mg/dL Calcium 8.3 L (8.6-10.4) mg/dl Phosphorus 3.6 (2.5-4.5) mg/dL Magnesium 2.5 H (1.6-2.3) mg/dL Total Bilirubin 0.6 (0.2-1.3) mg/dL AST 58 (17-59) U/L ALT 42 (21-72) U/L Alkaline Phosphatase 109 (38-126) U/L Total Protein 6.8 (6.3-8.3) g/dL Albumin 3.3 L (3.5-5.0) g/dL Globulin 3.5 (2.2-3.9) gm/dL Albumin/Globulin Ratio 0.9 L (1.0-2.1) 03/17/17 03/17/17 03/17/17 Range/Units 06:34 05:35 05:09 WBC 9.8 (4.8-10.8) K/uL RBC 3.19 L (4.40-5.90) Mil/uL Hgb 9.5 L (12.0-18.0) g/dL Hct 29.3 L (35.0-51.0) % MCV 91.6 (80.0-94.0) fL MCH 29.8 (27.0-31.0) pg MCHC 32.5 L (33.0-37.0) g/dL RDW 15.8 H (11.5-14.5) % Plt Count 235 (130-400) K/uL MPV 10.5 (7.2-11.7) fL Neut % (Auto) 80.7 H (50.0-75.0) % Lymph % (Auto) 11.2 L (20.0-40.0) % [place] % (Auto) 5.3 (0.0-10.0) % Eos % (Auto) 2.3 (0.0-4.0) % Baso % (Auto) 0.5 (0.0-2.0) % Neut # 7.9 H (1.8-7.0) K/uL Lymph # 1.1 (1.0-4.3) K/uL [place] # 0.5 (0.0-0.8) K/uL Eos # 0.2 (0.0-0.7) K/uL Baso # 0.0 (0.0-0.2) K/uL Puncture Site Rr pCO2 41 (35-45) mm/Hg pO2 125 H (80-100) mm/Hg HCO3 29.3 H (21-28) mmol/L ABG pH 7.47 H (7.35-7.45) ABG Total CO2 31.1 H (22-28) mmol/L ABG O2 Saturation 98.7 H (95-98) % ABG Base Excess 5.6 H (-2.0-3.0) mmol/L ABG Hemoglobin 9.0 L (11.7-17.4) g/dL ABG Carboxyhemoglobin 1.3 (0.5-1.5) % POC ABG HHb (Measured) 1.3 (0.0-5.0) % ABG Methemoglobin 1.2 (0.0-3.0) % Reji Test Pos A-a O2 Difference 180.0 mm/Hg Respiratory Index 1.4 Hgb O2 Saturation 96.2 (95.0-98.0) % Vent Mode Prvc Mechanical Rate 16 FiO2 50.0 % Tidal Volume 450 PEEP 5 Sodium (132-148) mmol/L Potassium (3.6-5.2) mmol/L Chloride (98-107) mmol/L Carbon Dioxide (22-30) mmol/L Anion Gap (10-20) BUN (9-20) mg/dL Creatinine (0.8-1.5) mg/dL Est GFR ( Amer) Est GFR (Non-Af Amer) POC Glucose (mg/dL) 266 H (65-110) mg/dL Random Glucose (75-110) mg/dL Calcium (8.6-10.4) mg/dl Phosphorus (2.5-4.5) mg/dL Magnesium (1.6-2.3) mg/dL Total Bilirubin (0.2-1.3) mg/dL AST (17-59) U/L ALT (21-72) U/L Alkaline Phosphatase (38-126) U/L Total Protein (6.3-8.3) g/dL Albumin (3.5-5.0) g/dL Globulin (2.2-3.9) gm/dL Albumin/Globulin Ratio (1.0-2.1) 03/16/17 Range/Units 23:54 WBC (4.8-10.8) K/uL RBC (4.40-5.90) Mil/uL Hgb (12.0-18.0) g/dL Hct (35.0-51.0) % MCV (80.0-94.0) fL MCH (27.0-31.0) pg MCHC (33.0-37.0) g/dL RDW (11.5-14.5) % Plt Count (130-400) K/uL MPV (7.2-11.7) fL Neut % (Auto) (50.0-75.0) % Lymph % (Auto) (20.0-40.0) % [place] % (Auto) (0.0-10.0) % Eos % (Auto) (0.0-4.0) % Baso % (Auto) (0.0-2.0) % Neut # (1.8-7.0) K/uL Lymph # (1.0-4.3) K/uL [place] # (0.0-0.8) K/uL Eos # (0.0-0.7) K/uL Baso # (0.0-0.2) K/uL Puncture Site pCO2 (35-45) mm/Hg pO2 (80-100) mm/Hg HCO3 (21-28) mmol/L ABG pH (7.35-7.45) ABG Total CO2 (22-28) mmol/L ABG O2 Saturation (95-98) % ABG Base Excess (-2.0-3.0) mmol/L ABG Hemoglobin (11.7-17.4) g/dL ABG Carboxyhemoglobin (0.5-1.5) % POC ABG HHb (Measured) (0.0-5.0) % ABG Methemoglobin (0.0-3.0) % Reji Test A-a O2 Difference mm/Hg Respiratory Index Hgb O2 Saturation (95.0-98.0) % Vent Mode Mechanical Rate FiO2 % Tidal Volume PEEP Sodium (132-148) mmol/L Potassium (3.6-5.2) mmol/L Chloride (98-107) mmol/L Carbon Dioxide (22-30) mmol/L Anion Gap (10-20) BUN (9-20) mg/dL Creatinine (0.8-1.5) mg/dL Est GFR ( Amer) Est GFR (Non-Af Amer) POC Glucose (mg/dL) 313 H (65-110) mg/dL Random Glucose (75-110) mg/dL Calcium (8.6-10.4) mg/dl Phosphorus (2.5-4.5) mg/dL Magnesium (1.6-2.3) mg/dL Total Bilirubin (0.2-1.3) mg/dL AST (17-59) U/L ALT (21-72) U/L Alkaline Phosphatase (38-126) U/L Total Protein (6.3-8.3) g/dL Albumin (3.5-5.0) g/dL Globulin (2.2-3.9) gm/dL Albumin/Globulin Ratio (1.0-2.1) Laboratory Results - last 24 hr 03/16/17 03/17/17 03/17/17 23:54 05:09 05:35 WBC RBC Hgb Hct MCV MCH MCHC RDW Plt Count MPV Neut % (Auto) Lymph % (Auto) [place] % (Auto) Eos % (Auto) Baso % (Auto) Neut # Lymph # [place] # Eos # Baso # Puncture Site Rr pCO2 41 pO2 125 H HCO3 29.3 H ABG pH 7.47 H ABG Total CO2 31.1 H ABG O2 Saturation 98.7 H ABG Base Excess 5.6 H ABG Hemoglobin 9.0 L ABG Carboxyhemoglobin 1.3 POC ABG HHb (Measured) 1.3 ABG Methemoglobin 1.2 Reji Test Pos A-a O2 Difference 180.0 Respiratory Index 1.4 Hgb O2 Saturation 96.2 Vent Mode Prvc Mechanical Rate 16 FiO2 50.0 Tidal Volume 450 PEEP 5 Sodium Potassium Chloride Carbon Dioxide Anion Gap BUN Creatinine Est GFR ( Amer) Est GFR (Non-Af Amer) POC Glucose (mg/dL) 313 H 266 H Random Glucose Calcium Phosphorus Magnesium Total Bilirubin AST ALT Alkaline Phosphatase Total Protein Albumin Globulin Albumin/Globulin Ratio 03/17/17 03/17/17 03/17/17 06:34 06:35 11:51 WBC 9.8 RBC 3.19 L Hgb 9.5 L Hct 29.3 L MCV 91.6 MCH 29.8 MCHC 32.5 L RDW 15.8 H Plt Count 235 MPV 10.5 Neut % (Auto) 80.7 H Lymph % (Auto) 11.2 L [place] % (Auto) 5.3 Eos % (Auto) 2.3 Baso % (Auto) 0.5 Neut # 7.9 H Lymph # 1.1 [place] # 0.5 Eos # 0.2 Baso # 0.0 Puncture Site pCO2 pO2 HCO3 ABG pH ABG Total CO2 ABG O2 Saturation ABG Base Excess ABG Hemoglobin ABG Carboxyhemoglobin POC ABG HHb (Measured) ABG Methemoglobin Reji Test A-a O2 Difference Respiratory Index Hgb O2 Saturation Vent Mode Mechanical Rate FiO2 Tidal Volume PEEP Sodium 148 Potassium 3.9 Chloride 112 H Carbon Dioxide 26 Anion Gap 14 BUN 49 H Creatinine 2.4 H Est GFR ( Amer) 35 Est GFR (Non-Af Amer) 29 POC Glucose (mg/dL) 194 H Random Glucose 249 H Calcium 8.3 L Phosphorus 3.6 Magnesium 2.5 H Total Bilirubin 0.6 AST 58 ALT 42 Alkaline Phosphatase 109 Total Protein 6.8 Albumin 3.3 L Globulin 3.5 Albumin/Globulin Ratio 0.9 L 03/17/17 17:34 WBC RBC Hgb Hct MCV MCH MCHC RDW Plt Count MPV Neut % (Auto) Lymph % (Auto) [place] % (Auto) Eos % (Auto) Baso % (Auto) Neut # Lymph # [place] # Eos # Baso # Puncture Site pCO2 pO2 HCO3 ABG pH ABG Total CO2 ABG O2 Saturation ABG Base Excess ABG Hemoglobin ABG Carboxyhemoglobin POC ABG HHb (Measured) ABG Methemoglobin Reji Test A-a O2 Difference Respiratory Index Hgb O2 Saturation Vent Mode Mechanical Rate FiO2 Tidal Volume PEEP Sodium Potassium Chloride Carbon Dioxide Anion Gap BUN Creatinine Est GFR ( Amer) Est GFR (Non-Af Amer) POC Glucose (mg/dL) 233 H Random Glucose Calcium Phosphorus Magnesium Total Bilirubin AST ALT Alkaline Phosphatase Total Protein Albumin Globulin Albumin/Globulin Ratio Fingerstick Blood Sugar Results: 233
[2017-03-18] MEDS: Albuterol-Ipratrop 3 mg / 0.5 (3 ml) UD INH SCH ×4 (01:05→20:22)
[2017-03-18] MEDS: (Novolin R) Insulin Human Regular 100 units/ml vial SC SCH ×5 (02:20→23:56)
[2017-03-18] MEDS: Cefepime IV 2 gm in Dextrose 2 GM/100 ML BAG IVPB SCH ×2 (05:02→17:33)
[2017-03-18 06:28] LABS: ABG ALLEN TEST POS; ABG MECHANICAL RATE 16; ARTERIAL BLOOD GAS MODE PRVC; ARTERIAL BLOOD HGB O2 SAT 95.2 % (95.0-98.0); ATERIAL BLOOD GAS PEEP 5; CARBOXYHEMOGLOBIN 1.4 % (0.5-1.5); DRAW SITE RRADIAL; HHB 2.1 % (0.0-5.0); METHEMOGLOBIN 1.3 % (0.0-3.0)
[2017-03-18 07:05] LABS: BASO % 0.4 % (0.0-2.0); EOS # 0.3 K/uL (0.0-0.7); EOS % 3.6 % (0.0-4.0); HEMATOCRIT 27.8 % (35.0-51.0); LYMPH % 13.1 % (20.0-40.0); MEAN CELL VOLUME 91.4 fL (80.0-94.0); MEAN CORPUSCULAR HEMOGLOBIN 29.8 pg (27.0-31.0); MEAN CORPUSCULAR HGB CONC 32.6 g/dL (33.0-37.0); MEAN PLATELET VOLUME 10.3 fL (7.2-11.7); MONO # 0.5 K/uL (0.0-0.8); NRBC % 0.1 % (0.0-2.0); RED CELL DISTRIBUTION WIDTH 15.5 % (11.5-14.5); WHITE BLOOD COUNT 7.7 K/uL (4.8-10.8)
[2017-03-18 07:08] LABS: POTASSIUM 4.1 mmol/L (3.6-5.2)
[2017-03-18 07:10] LABS: ALB/GLOB RATIO 0.7 (1.0-2.1); BILIRUBIN,TOTAL 0.4 mg/dL (0.2-1.3)
[2017-03-18 07:11] LABS: CALCIUM 8.6 mg/dl (8.6-10.4); MAGNESIUM 2.6 mg/dL (1.6-2.3); PHOSPHOROUS 3.9 mg/dL (2.5-4.5)
--- NOTE | 2017-03-18 08:17 | CP.CCUPN ---
CCU Subjective - Physician Review Events Since Last Encounter (Free Text): 03/18/17 08:15 I had a family meeting yesterday. Family was asking multiple questions about the tracheostomy, feeding tube, and also hospice care. It will be a futile care, and the prolonged if they choose to tracheostomy and feeding tube, but they still discussing. Currently patient is on ventilator. No new changes. Unresponsive CCU Objective - Vital Signs / Intake & Output Vital Signs (Last 4 hours): Vital Signs Pulse Resp BP Pulse Ox 03/18/17 07:00 90 18 84/51 L 100 03/18/17 06:00 95 H 16 95/56 L 99 03/18/17 05:00 94 H 16 104/60 100 Intake and Output (Last 8hrs): Intake & Output 03/17/17 03/18/17 03/18/17 23:59 06:59 14:59 Intake Total Output Total Balance Weight Intake: Intake, IV Amount Left Hand Tube Feeding Other Output: Urine Urethral (Grant) Other: # Bowel Movements - Physical Exam Narrative Physical Exam (Free Text): 03/18/17 08:16 Vital signs reviewed No neck vein distention noted Chest good air entry bilaterally, no wheezing or rales noted CVS regular heart sound, no murmur noted Abdomen soft, nontender. Right foot ulcer noted [employer], patient unresponsive, Head: Positive for: Atraumatic, Normocephalic Mouth: Positive for: Moist Mucous Membranes Respiratory/Chest: Positive for: Rales Cardiovascular: Positive for: Regular Rate and Rhythm, Normal S1, S2 Abdomen: Positive for: Normal Bowel Sounds. 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 Negative for: Alert, Oriented x 3 - Medications Active Medications: Active Medications Generic Name Dose Route Start Last Admin Trade Name Freq PRN Reason Stop Dose Admin Acetaminophen 650 mg 03/05/17 22:55 03/14/17 21:58 Tylenol 650mg/20.3ml Solution Ud PO 650 mg Q4 PRN Administration temp >101 Albuterol/Ipratropium 3 ml 03/10/17 20:00 03/18/17 07:15 Duoneb 3 Mg/0.5 Mg (3 Ml) Ud INH 3 ml RQ6 TENA Administration Artificial Tears 0 gm 03/06/17 10:04 03/17/17 09:11 Lacri-Lube OS 3.5 gm Q4H PRN Administration Other Calcium Acetate 667 mg 03/08/17 10:00 03/18/17 07:43 Phoslo GT 667 mg TIDCC TENA Administration Collagenase 0 gm 03/10/17 10:00 03/17/17 09:11 Santyl TOP 1 applic DAILY TENA Administration Heparin Sodium (Porcine) 5,000 units 03/14/17 22:00 03/17/17 21:06 Heparin SC 5,000 units Q12 TENA Administration Cefepime HCl 2 gm in 100 mls @ 100 mls/hr 03/13/17 18:00 03/18/17 05:02 Maxipime Iv 2 Gm Premix IVPB 100 mls/hr Q12H TENA Administration Amikacin Sulfate 1,065 mg/ 254.26 mls @ 254.26 mls/hr 03/15/17 13:00 12:07 Sodium Chloride IVPB 254.26 mls/hr Q48H TENA Administration Insulin Human Regular 0 unit 03/14/17 00:00 03/18/17 05:16 Novolin R SC 6 unit Q6 TENA Administration Protocol Levetiracetam 500 mg 03/14/17 22:00 03/17/17 21:06 Keppra PO 500 mg Q12 TENA Administration Nystatin 0 ea 03/16/17 10:00 03/17/17 17:07 Mycostatin Cream TOP 1 applic TID TENA Administration Pantoprazole Sodium 40 mg 03/05/17 10:00 03/17/17 09:12 Protonix Inj IVP 40 mg DAILY TENA Administration Phenobarbital 90 mg 03/10/17 06:00 03/18/17 06:21 Phenobarbital Inj IV 90 mg Q8 TENA Administration Potassium Chloride 20 meq 03/09/17 13:15 03/09/17 13:52 Potassium Chloride Oral Soln GT 20 meq ONCE TENA Administration - Patient Studies Lab Studies: Microbiology Studies 03/13/17 17:00 Blood Culture - Preliminary Blood NO GROWTH AFTER 4 DAYS 03/13/17 17:00 Blood Culture - Preliminary Blood NO GROWTH AFTER 4 DAYS Lab Studies 03/18/17 03/18/17 03/18/17 Range/Units 06:45 06:45 05:40 WBC 7.7 (4.8-10.8) K/uL RBC 3.04 L (4.40-5.90) Mil/uL Hgb 9.1 L (12.0-18.0) g/dL Hct 27.8 L (35.0-51.0) % MCV 91.4 (80.0-94.0) fL MCH 29.8 (27.0-31.0) pg MCHC 32.6 L (33.0-37.0) g/dL RDW 15.5 H (11.5-14.5) % Plt Count 240 (130-400) K/uL MPV 10.3 (7.2-11.7) fL Neut % (Auto) 76.9 H (50.0-75.0) % Lymph % (Auto) 13.1 L (20.0-40.0) % [place] % (Auto) 6.0 (0.0-10.0) % Eos % (Auto) 3.6 (0.0-4.0) % Baso % (Auto) 0.4 (0.0-2.0) % Neut # 5.9 (1.8-7.0) K/uL Lymph # 1.0 (1.0-4.3) K/uL [place] # 0.5 (0.0-0.8) K/uL Eos # 0.3 (0.0-0.7) K/uL Baso # 0.0 (0.0-0.2) K/uL Puncture Site Rradial pCO2 41 (35-45) mm/Hg pO2 83 (80-100) mm/Hg HCO3 27.5 (21-28) mmol/L ABG pH 7.44 (7.35-7.45) ABG Total CO2 29.1 H (22-28) mmol/L ABG O2 Saturation 97.8 (95-98) % ABG Base Excess 3.3 H (-2.0-3.0) mmol/L ABG Hemoglobin 9.3 L (11.7-17.4) g/dL ABG Carboxyhemoglobin 1.4 (0.5-1.5) % POC ABG HHb (Measured) 2.1 (0.0-5.0) % ABG Methemoglobin 1.3 (0.0-3.0) % Reji Test Pos A-a O2 Difference 222.0 mm/Hg Respiratory Index 2.7 Hgb O2 Saturation 95.2 (95.0-98.0) % Vent Mode Prvc Mechanical Rate 16 FiO2 50.0 % Tidal Volume 450 PEEP 5 Sodium 149 H (132-148) mmol/L Potassium 4.1 (3.6-5.2) mmol/L Chloride 112 H (98-107) mmol/L Carbon Dioxide 27 (22-30) mmol/L Anion Gap 14 (10-20) BUN 55 H (9-20) mg/dL Creatinine 2.5 H (0.8-1.5) mg/dL Est GFR ( Amer) 33 Est GFR (Non-Af Amer) 27 POC Glucose (mg/dL) (65-110) mg/dL Random Glucose 239 H (75-110) mg/dL Calcium 8.6 (8.6-10.4) mg/dl Phosphorus 3.9 (2.5-4.5) mg/dL Magnesium 2.6 H (1.6-2.3) mg/dL Total Bilirubin 0.4 (0.2-1.3) mg/dL AST 43 (17-59) U/L ALT 41 (21-72) U/L Alkaline Phosphatase 110 (38-126) U/L Total Protein 8.0 (6.3-8.3) g/dL Albumin 3.2 L (3.5-5.0) g/dL Globulin 4.7 H (2.2-3.9) gm/dL Albumin/Globulin Ratio 0.7 L (1.0-2.1) 03/18/17 03/18/17 03/17/17 Range/Units 05:14 03:15 17:34 WBC (4.8-10.8) K/uL RBC (4.40-5.90) Mil/uL Hgb (12.0-18.0) g/dL Hct (35.0-51.0) % MCV (80.0-94.0) fL MCH (27.0-31.0) pg MCHC (33.0-37.0) g/dL RDW (11.5-14.5) % Plt Count (130-400) K/uL MPV (7.2-11.7) fL Neut % (Auto) (50.0-75.0) % Lymph % (Auto) (20.0-40.0) % [place] % (Auto) (0.0-10.0) % Eos % (Auto) (0.0-4.0) % Baso % (Auto) (0.0-2.0) % Neut # (1.8-7.0) K/uL Lymph # (1.0-4.3) K/uL [place] # (0.0-0.8) K/uL Eos # (0.0-0.7) K/uL Baso # (0.0-0.2) K/uL Puncture Site pCO2 (35-45) mm/Hg pO2 (80-100) mm/Hg HCO3 (21-28) mmol/L ABG pH (7.35-7.45) ABG Total CO2 (22-28) mmol/L ABG O2 Saturation (95-98) % ABG Base Excess (-2.0-3.0) mmol/L ABG Hemoglobin (11.7-17.4) g/dL ABG Carboxyhemoglobin (0.5-1.5) % POC ABG HHb (Measured) (0.0-5.0) % ABG Methemoglobin (0.0-3.0) % Reji Test A-a O2 Difference mm/Hg Respiratory Index Hgb O2 Saturation (95.0-98.0) % Vent Mode Mechanical Rate FiO2 % Tidal Volume PEEP Sodium (132-148) mmol/L Potassium (3.6-5.2) mmol/L Chloride (98-107) mmol/L Carbon Dioxide (22-30) mmol/L Anion Gap (10-20) BUN (9-20) mg/dL Creatinine (0.8-1.5) mg/dL Est GFR ( Amer) Est GFR (Non-Af Amer) POC Glucose (mg/dL) 256 H 286 H 233 H (65-110) mg/dL Random Glucose (75-110) mg/dL Calcium (8.6-10.4) mg/dl Phosphorus (2.5-4.5) mg/dL Magnesium (1.6-2.3) mg/dL Total Bilirubin (0.2-1.3) mg/dL AST (17-59) U/L ALT (21-72) U/L Alkaline Phosphatase (38-126) U/L Total Protein (6.3-8.3) g/dL Albumin (3.5-5.0) g/dL Globulin (2.2-3.9) gm/dL Albumin/Globulin Ratio (1.0-2.1) 03/17/17 Range/Units 11:51 WBC (4.8-10.8) K/uL RBC (4.40-5.90) Mil/uL Hgb (12.0-18.0) g/dL Hct (35.0-51.0) % MCV (80.0-94.0) fL MCH (27.0-31.0) pg MCHC (33.0-37.0) g/dL RDW (11.5-14.5) % Plt Count (130-400) K/uL MPV (7.2-11.7) fL Neut % (Auto) (50.0-75.0) % Lymph % (Auto) (20.0-40.0) % [place] % (Auto) (0.0-10.0) % Eos % (Auto) (0.0-4.0) % Baso % (Auto) (0.0-2.0) % Neut # (1.8-7.0) K/uL Lymph # (1.0-4.3) K/uL [place] # (0.0-0.8) K/uL Eos # (0.0-0.7) K/uL Baso # (0.0-0.2) K/uL Puncture Site pCO2 (35-45) mm/Hg pO2 (80-100) mm/Hg HCO3 (21-28) mmol/L ABG pH (7.35-7.45) ABG Total CO2 (22-28) mmol/L ABG O2 Saturation (95-98) % ABG Base Excess (-2.0-3.0) mmol/L ABG Hemoglobin (11.7-17.4) g/dL ABG Carboxyhemoglobin (0.5-1.5) % POC ABG HHb (Measured) (0.0-5.0) % ABG Methemoglobin (0.0-3.0) % Reji Test A-a O2 Difference mm/Hg Respiratory Index Hgb O2 Saturation (95.0-98.0) % Vent Mode Mechanical Rate FiO2 % Tidal Volume PEEP Sodium (132-148) mmol/L Potassium (3.6-5.2) mmol/L Chloride (98-107) mmol/L Carbon Dioxide (22-30) mmol/L Anion Gap (10-20) BUN (9-20) mg/dL Creatinine (0.8-1.5) mg/dL Est GFR ( Amer) Est GFR (Non-Af Amer) POC Glucose (mg/dL) 194 H (65-110) mg/dL Random Glucose (75-110) mg/dL Calcium (8.6-10.4) mg/dl Phosphorus (2.5-4.5) mg/dL Magnesium (1.6-2.3) mg/dL Total Bilirubin (0.2-1.3) mg/dL AST (17-59) U/L ALT (21-72) U/L Alkaline Phosphatase (38-126) U/L Total Protein (6.3-8.3) g/dL Albumin (3.5-5.0) g/dL Globulin (2.2-3.9) gm/dL Albumin/Globulin Ratio (1.0-2.1) Laboratory Results - last 24 hr 03/17/17 03/17/17 03/18/17 11:51 17:34 03:15 WBC RBC Hgb Hct MCV MCH MCHC RDW Plt Count MPV Neut % (Auto) Lymph % (Auto) [place] % (Auto) Eos % (Auto) Baso % (Auto) Neut # Lymph # [place] # Eos # Baso # Puncture Site pCO2 pO2 HCO3 ABG pH ABG Total CO2 ABG O2 Saturation ABG Base Excess ABG Hemoglobin ABG Carboxyhemoglobin POC ABG HHb (Measured) ABG Methemoglobin Reji Test A-a O2 Difference Respiratory Index Hgb O2 Saturation Vent Mode Mechanical Rate FiO2 Tidal Volume PEEP Sodium Potassium Chloride Carbon Dioxide Anion Gap BUN Creatinine Est GFR ( Amer) Est GFR (Non-Af Amer) POC Glucose (mg/dL) 194 H 233 H 286 H Random Glucose Calcium Phosphorus Magnesium Total Bilirubin AST ALT Alkaline Phosphatase Total Protein Albumin Globulin Albumin/Globulin Ratio 03/18/17 03/18/17 03/18/17 05:14 05:40 06:45 WBC 7.7 RBC 3.04 L Hgb 9.1 L Hct 27.8 L MCV 91.4 MCH 29.8 MCHC 32.6 L RDW 15.5 H Plt Count 240 MPV 10.3 Neut % (Auto) 76.9 H Lymph % (Auto) 13.1 L [place] % (Auto) 6.0 Eos % (Auto) 3.6 Baso % (Auto) 0.4 Neut # 5.9 Lymph # 1.0 [place] # 0.5 Eos # 0.3 Baso # 0.0 Puncture Site Rradial pCO2 41 pO2 83 HCO3 27.5 ABG pH 7.44 ABG Total CO2 29.1 H ABG O2 Saturation 97.8 ABG Base Excess 3.3 H ABG Hemoglobin 9.3 L ABG Carboxyhemoglobin 1.4 POC ABG HHb (Measured) 2.1 ABG Methemoglobin 1.3 Reji Test Pos A-a O2 Difference 222.0 Respiratory Index 2.7 Hgb O2 Saturation 95.2 Vent Mode Prvc Mechanical Rate 16 FiO2 50.0 Tidal Volume 450 PEEP 5 Sodium Potassium Chloride Carbon Dioxide Anion Gap BUN Creatinine Est GFR ( Amer) Est GFR (Non-Af Amer) POC Glucose (mg/dL) 256 H Random Glucose Calcium Phosphorus Magnesium Total Bilirubin AST ALT Alkaline Phosphatase Total Protein Albumin Globulin Albumin/Globulin Ratio 03/18/17 06:45 WBC RBC Hgb Hct MCV MCH MCHC RDW Plt Count MPV Neut % (Auto) Lymph % (Auto) [place] % (Auto) Eos % (Auto) Baso % (Auto) Neut # Lymph # [place] # Eos # Baso # Puncture Site pCO2 pO2 HCO3 ABG pH ABG Total CO2 ABG O2 Saturation ABG Base Excess ABG Hemoglobin ABG Carboxyhemoglobin POC ABG HHb (Measured) ABG Methemoglobin Reji Test A-a O2 Difference Respiratory Index Hgb O2 Saturation Vent Mode Mechanical Rate FiO2 Tidal Volume PEEP Sodium 149 H Potassium 4.1 Chloride 112 H Carbon Dioxide 27 Anion Gap 14 BUN 55 H Creatinine 2.5 H Est GFR ( Amer) 33 Est GFR (Non-Af Amer) 27 POC Glucose (mg/dL) Random Glucose 239 H Calcium 8.6 Phosphorus 3.9 Magnesium 2.6 H Total Bilirubin 0.4 AST 43 ALT 41 Alkaline Phosphatase 110 Total Protein 8.0 Albumin 3.2 L Globulin 4.7 H Albumin/Globulin Ratio 0.7 L Fingerstick Blood Sugar Results: 233 Review of Systems - Review of Systems All systems: reviewed and no additional remarkable complaints except Critical Care Progress Note - Ventilator Checklist Head of Bed 30 Degrees: Yes Daily Sedation Vacation: Yes Daily Assessment of Readiness to Wean: Yes Daily Spontaneous Breathing Trial: Yes PUD Prophalyxis: Yes DVT Prophylaxis: Yes Oral Care with Chlorhexidine Gluconate {CHG}: Yes Assessment/Plan (1) CHF (congestive heart failure) Current Visit: Yes Status: Acute (2) Cardiac arrest Assessment and plan: Patient with cardiac arrest, complicated with the anoxic encephalopathy. Diabetic foot Chronic diabetes Renal insufficiency Overall prognosis is very poor Please speak to the family again today Current Visit: Yes Status: Acute (3) Coagulopathy Current Visit: Yes Status: Acute (4) Respiratory failure Current Visit: Yes Status: Acute
[2017-03-18] MEDS: levETIRAcetam 100 mg/ml (5ml) Oral Syringe PO SCH ×2 (09:11→21:03)
[2017-03-18] MEDS: Nystatin 100,000 Units/gm Cream(15 gm) TOP SCH ×3 (09:12→17:57)
[2017-03-18] MEDS: Collagenase 250 Units/gm Ointment(30 gm) TOP SCH (09:45)
--- NOTE | 2017-03-18 11:34 | CP.PCM.PN ---
Subjective - Date & Time of Evaluation Date of Evaluation: 03/18/17 Time of Evaluation: 09:00 - Subjective Subjective: remains unresponsive on vent no fever Objective - Vital Signs/Intake and Output Vital Signs (last 24 hours): Temp Pulse Resp BP Pulse Ox 98 F 96 H 19 117/66 100 03/18/17 04:00 03/18/17 10:00 03/18/17 10:00 03/18/17 10:00 03/18/17 10:00 Intake and Output: 03/18/17 03/18/17 06:59 18:59 Intake Total 105 Output Total 180 Balance -75 - Medications Medications: Current Medications Acetaminophen (Tylenol 650mg/20.3ml Solution Ud) 650 mg PO Q4 PRN PRN Reason: temp >101 Last Admin: 03/14/17 21:58 Dose: 650 mg Albuterol/Ipratropium (Duoneb 3 Mg/0.5 Mg (3 Ml) Ud) 3 ml INH RQ6 [facility] Last Admin: 03/18/17 07:15 Dose: 3 ml Artificial Tears (Lacri-Lube) 0 gm OS Q4H PRN PRN Reason: Other Last Admin: 03/17/17 09:11 Dose: 3.5 gm Calcium Acetate (Phoslo) 667 mg GT TIDCC [facility] Last Admin: 03/18/17 07:43 Dose: 667 mg Collagenase (Santyl) 0 gm TOP DAILY [facility] Last Admin: 03/18/17 09:45 Dose: 1 applic Heparin Sodium (Porcine) (Heparin) 5,000 units SC Q12 [facility] Last Admin: 03/18/17 09:11 Dose: 5,000 units Cefepime HCl (Maxipime Iv 2 Gm Premix) 2 gm in 100 mls @ 100 mls/hr IVPB Q12H [facility] Last Admin: 03/18/17 05:02 Dose: 100 mls/hr Amikacin Sulfate 1,065 mg/ (Sodium Chloride) 254.26 mls @ 254.26 mls/hr IVPB Q48H [facility] Last Admin: 03/17/17 12:07 Dose: 254.26 mls/hr Insulin Human Regular (Novolin R) 0 unit SC Q6 [facility] PRN Reason: Protocol Last Admin: 03/18/17 05:16 Dose: 6 unit Levetiracetam (Keppra) 500 mg PO Q12 [facility] Last Admin: 03/18/17 09:11 Dose: 500 mg Nystatin (Mycostatin Cream) 0 ea TOP TID [facility] Last Admin: 03/18/17 09:12 Dose: 1 applic Pantoprazole Sodium (Protonix Inj) 40 mg IVP DAILY [facility] Last Admin: 03/18/17 09:11 Dose: 40 mg Phenobarbital (Phenobarbital Inj) 90 mg IV Q8 [facility] Last Admin: 03/18/17 06:21 Dose: 90 mg Potassium Chloride (Potassium Chloride Oral Soln) 20 meq GT ONCE [facility] Last Admin: 03/09/17 13:52 Dose: 20 meq - Labs Labs: 03/18/17 06:45 03/18/17 06:45 PT 13.6 SECONDS (9.7-12.2) H 03/10/17 12:24 INR 1.2 03/10/17 12:24 APTT 32 SECONDS (21-34) 03/10/17 12:24 - Constitutional Appears: Non-toxic, Cachectic, Chronically Ill - Head Exam Head Exam: NORMOCEPHALIC - Eye Exam Eye Exam: PERRL. absent: Scleral icterus - ENT Exam ENT Exam: Mucous Membranes Dry - Neck Exam Neck Exam: absent: Lymphadenopathy - Respiratory Exam Respiratory Exam: Decreased Breath Sounds - Cardiovascular Exam Cardiovascular Exam: REGULAR RHYTHM - GI/Abdominal Exam GI & Abdominal Exam: Distended, Soft - Rectal Exam Rectal Exam: Deferred - Exam Exam: NORMAL INSPECTION Assessment and Plan (1) Cardiac arrest Status: Acute (2) Open wound of right foot with complication Status: Acute (3) Respiratory failure Status: Acute - Assessment and Plan (Free Text) Assessment: s/p cardiac arrest with coma on vent Pseudomonas in sputum- MDRO possible colonizer open wound right foot ( chronic) likely OM cont iv rx and wound care family to decide on trach vs hospice
--- NOTE | 2017-03-18 14:34 | RAD ---
HISTORY: vent COMPARISON: Chest x-ray performed 03/17/17 TECHNIQUE: Chest, one view. FINDINGS: Endotracheal tube tip terminates approximately 5.7 cm above the samuel. Nasogastric tube extends expected location of the stomach. LUNGS: Mild pulmonary venous congestion. No focal consolidation. Please note that chest x-ray has limited sensitivity for the detection of pulmonary masses. PLEURA: No significant pleural effusion identified. No definite pneumothorax . CARDIOVASCULAR: Heart size appears top normal. OSSEOUS STRUCTURES: Degenerative changes of the spine. VISUALIZED UPPER ABDOMEN: Unremarkable. OTHER FINDINGS: None. IMPRESSION: Endotracheal tube tip terminates approximately 5.7 cm above the samuel. Nasogastric tube extends expected location of the stomach. Mild pulmonary venous congestion.
--- NOTE | 2017-03-18 17:38 | CP.PCM.PN ---
Subjective - Date & Time of Evaluation Date of Evaluation: 03/18/17 Time of Evaluation: 12:20 - Subjective Subjective: clinically same Objective - Vital Signs/Intake and Output Vital Signs (last 24 hours): Temp Pulse Resp BP Pulse Ox 99.3 F 98 H 17 117/66 100 03/18/17 12:00 03/18/17 17:00 03/18/17 17:00 03/18/17 17:00 03/18/17 17:00 Intake and Output: 03/18/17 03/18/17 06:59 18:59 Intake Total 350 Output Total 670 Balance -320 - Medications Medications: Current Medications Acetaminophen (Tylenol 650mg/20.3ml Solution Ud) 650 mg PO Q4 PRN PRN Reason: temp >101 Last Admin: 03/14/17 21:58 Dose: 650 mg Albuterol/Ipratropium (Duoneb 3 Mg/0.5 Mg (3 Ml) Ud) 3 ml INH RQ6 [facility] Last Admin: 03/18/17 13:35 Dose: 3 ml Artificial Tears (Lacri-Lube) 0 gm OS Q4H PRN PRN Reason: Other Last Admin: 03/17/17 09:11 Dose: 3.5 gm Calcium Acetate (Phoslo) 667 mg GT TIDCC [facility] Last Admin: 03/18/17 17:33 Dose: 667 mg Collagenase (Santyl) 0 gm TOP DAILY [facility] Last Admin: 03/18/17 09:45 Dose: 1 applic Heparin Sodium (Porcine) (Heparin) 5,000 units SC Q12 [facility] Last Admin: 03/18/17 09:11 Dose: 5,000 units Cefepime HCl (Maxipime Iv 2 Gm Premix) 2 gm in 100 mls @ 100 mls/hr IVPB Q12H [facility] Last Admin: 03/18/17 17:33 Dose: 100 mls/hr Amikacin Sulfate 1,065 mg/ (Sodium Chloride) 254.26 mls @ 254.26 mls/hr IVPB Q48H [facility] Last Admin: 03/17/17 12:07 Dose: 254.26 mls/hr Insulin Human Regular (Novolin R) 0 unit SC Q6 [facility] PRN Reason: Protocol Last Admin: 03/18/17 13:00 Dose: 2 unit Levetiracetam (Keppra) 500 mg PO Q12 [facility] Last Admin: 03/18/17 09:11 Dose: 500 mg Nystatin (Mycostatin Cream) 0 ea TOP TID [facility] Last Admin: 03/18/17 13:37 Dose: 1 applic Pantoprazole Sodium (Protonix Inj) 40 mg IVP DAILY [facility] Last Admin: 03/18/17 09:11 Dose: 40 mg Phenobarbital (Phenobarbital Inj) 90 mg IV Q8 [facility] Last Admin: 03/18/17 13:31 Dose: 90 mg Potassium Chloride (Potassium Chloride Oral Soln) 20 meq GT ONCE [facility] Last Admin: 03/09/17 13:52 Dose: 20 meq - Labs Labs: 03/18/17 06:45 03/18/17 06:45 PT 13.6 SECONDS (9.7-12.2) H 03/10/17 12:24 INR 1.2 03/10/17 12:24 APTT 32 SECONDS (21-34) 03/10/17 12:24 - Constitutional Appears: Well - Head Exam Head Exam: ATRAUMATIC, NORMAL INSPECTION, NORMOCEPHALIC - Eye Exam Eye Exam: EOMI, Normal appearance, PERRL Pupil Exam: NORMAL ACCOMODATION, PERRL - ENT Exam ENT Exam: Mucous Membranes Moist, Normal Exam - Neck Exam Neck Exam: Full ROM, Normal Inspection. absent: Lymphadenopathy - Respiratory Exam Respiratory Exam: Decreased Breath Sounds - Cardiovascular Exam Cardiovascular Exam: REGULAR RHYTHM, +S1, +S2 - GI/Abdominal Exam GI & Abdominal Exam: Soft, Diminished Bowel Sounds - Rectal Exam Rectal Exam: Deferred Assessment and Plan (1) Anemia Status: Acute (2) CHF (congestive heart failure) Status: Acute (3) Cardiac arrest Status: Acute (4) Coagulopathy Status: Acute (5) Open wound of right foot with complication Status: Acute (6) Respiratory failure Status: Acute (7) SAUNDRA (acute kidney injury) Status: Resolved - Assessment and Plan (Free Text) Plan: Patient examined. Patient unresponsive on ventilator. Continue cefepime, amikacin. Continue all supportive medications.
[2017-03-18] MEDS: Acetaminophen 650mg/20.3ml solution UD PO PRN (23:56)
[2017-03-19] MEDS: Albuterol-Ipratrop 3 mg / 0.5 (3 ml) UD INH SCH ×4 (01:02→20:38)
[2017-03-19 04:52] LABS: ABG ALLEN TEST POS; ABG MECHANICAL RATE 16; ARTERIAL BLOOD GAS MODE PRVC; ARTERIAL BLOOD HGB O2 SAT 96.7 % (95.0-98.0); ATERIAL BLOOD GAS PEEP 5; CARBOXYHEMOGLOBIN 1.4 % (0.5-1.5); DRAW SITE RR; HHB 0.7 % (0.0-5.0); METHEMOGLOBIN 1.2 % (0.0-3.0)
[2017-03-19] MEDS: (Novolin R) Insulin Human Regular 100 units/ml vial SC SCH ×3 (05:11→19:43)
[2017-03-19] MEDS: Cefepime IV 2 gm in Dextrose 2 GM/100 ML BAG IVPB SCH ×2 (05:12→19:43)
[2017-03-19 06:24] LABS: BASO % 0.4 % (0.0-2.0); EOS # 0.3 K/uL (0.0-0.7); EOS % 3.4 % (0.0-4.0); HEMATOCRIT 28.9 % (35.0-51.0); LYMPH # 1.5 K/uL (1.0-4.3); LYMPH % 17.1 % (20.0-40.0); MEAN CORPUSCULAR HEMOGLOBIN 29.2 pg (27.0-31.0); MEAN CORPUSCULAR HGB CONC 31.7 g/dL (33.0-37.0); MEAN PLATELET VOLUME 10.4 fL (7.2-11.7); MONO # 0.5 K/uL (0.0-0.8); MONO % 5.2 % (0.0-10.0); RED CELL DISTRIBUTION WIDTH 15.5 % (11.5-14.5); WHITE BLOOD COUNT 8.9 K/uL (4.8-10.8)
[2017-03-19 06:34] LABS: ALB/GLOB RATIO 0.7 (1.0-2.1); BILIRUBIN,TOTAL 0.5 mg/dL (0.2-1.3); CALCIUM 8.8 mg/dl (8.6-10.4); MAGNESIUM 2.9 mg/dL (1.6-2.3); PHOSPHOROUS 4.4 mg/dL (2.5-4.5); POTASSIUM 4.2 mmol/L (3.6-5.2); TOTAL PROTEIN 7.9 g/dL (6.3-8.3)
--- NOTE | 2017-03-19 08:27 | PN ---
DATE: 03/19/2017 NEUROLOGICAL PROBLEM: Status post anoxic encephalopathy with status epilepticus, which is resolved at present. PHYSICAL EXAMINATION VITAL SIGNS: Blood pressure 106/36, mean arterial pressure of 77, respirations 16, and temperature afebrile. NECK: Supple. No carotid bruits. NEUROLOGIC: The patient is deeply comatose. Eyes are closed. Flaccid quadriplegic. There is a dysconjugate gaze noted. No corneal reflex. Excessive tearing eyes. The patient showed irreversible [employer] insult from his anoxic encephalopathy, which he does not show any physiological improvement for the last two weeks. His overall prognosis is grim. If family wishes to continue the present management, consider tracheostomy and PEG placement for long-term care and continue DVT prophylaxis. Ronnie Rascon MD
--- NOTE | 2017-03-19 08:31 | CP.PCM.PN ---
Subjective - Date & Time of Evaluation Date of Evaluation: 03/19/17 Time of Evaluation: 11:40 - Subjective Subjective: clinically same Objective - Vital Signs/Intake and Output Vital Signs (last 24 hours): Temp Pulse Resp BP Pulse Ox 98.9 F 83 16 106/36 L 100 03/19/17 04:00 03/19/17 07:00 03/19/17 07:00 03/19/17 07:00 03/19/17 07:00 Intake and Output: 03/19/17 03/19/17 06:59 18:59 Intake Total 520 135 Output Total 700 50 Balance -180 85 - Medications Medications: Current Medications Acetaminophen (Tylenol 650mg/20.3ml Solution Ud) 650 mg PO Q4 PRN PRN Reason: temp >101 Last Admin: 03/18/17 23:56 Dose: 650 mg Albuterol/Ipratropium (Duoneb 3 Mg/0.5 Mg (3 Ml) Ud) 3 ml INH RQ6 [facility] Last Admin: 03/19/17 07:52 Dose: 3 ml Artificial Tears (Lacri-Lube) 0 gm OS Q4H PRN PRN Reason: Other Last Admin: 03/17/17 09:11 Dose: 3.5 gm Calcium Acetate (Phoslo) 667 mg GT TIDCC [facility] Last Admin: 03/18/17 17:33 Dose: 667 mg Collagenase (Santyl) 0 gm TOP DAILY [facility] Last Admin: 03/18/17 09:45 Dose: 1 applic Heparin Sodium (Porcine) (Heparin) 5,000 units SC Q12 [facility] Last Admin: 03/18/17 21:03 Dose: 5,000 units Cefepime HCl (Maxipime Iv 2 Gm Premix) 2 gm in 100 mls @ 100 mls/hr IVPB Q12H [facility] Last Admin: 03/19/17 05:12 Dose: 100 mls/hr Amikacin Sulfate 1,065 mg/ (Sodium Chloride) 254.26 mls @ 254.26 mls/hr IVPB Q48H [facility] Last Admin: 03/17/17 12:07 Dose: 254.26 mls/hr Insulin Human Regular (Novolin R) 0 unit SC Q6 [facility] PRN Reason: Protocol Last Admin: 03/19/17 05:11 Dose: 4 unit Levetiracetam (Keppra) 500 mg PO Q12 [facility] Last Admin: 03/18/17 21:03 Dose: 500 mg Nystatin (Mycostatin Cream) 0 ea TOP TID [facility] Last Admin: 03/18/17 17:57 Dose: 1 applic Pantoprazole Sodium (Protonix Inj) 40 mg IVP DAILY [facility] Last Admin: 03/18/17 09:11 Dose: 40 mg Phenobarbital (Phenobarbital Inj) 90 mg IV Q8 [facility] Last Admin: 03/19/17 05:11 Dose: 90 mg Potassium Chloride (Potassium Chloride Oral Soln) 20 meq GT ONCE [facility] Last Admin: 03/09/17 13:52 Dose: 20 meq - Labs Labs: 03/19/17 06:13 03/19/17 06:13 PT 13.6 SECONDS (9.7-12.2) H 03/10/17 12:24 INR 1.2 03/10/17 12:24 APTT 32 SECONDS (21-34) 03/10/17 12:24 - Constitutional Appears: Well - Head Exam Head Exam: ATRAUMATIC, NORMAL INSPECTION, NORMOCEPHALIC - Eye Exam Eye Exam: EOMI, Normal appearance, PERRL Pupil Exam: NORMAL ACCOMODATION, PERRL - ENT Exam ENT Exam: Mucous Membranes Moist, Normal Exam - Neck Exam Neck Exam: Full ROM, Normal Inspection. absent: Lymphadenopathy - Respiratory Exam Respiratory Exam: Clear to Ausculation Bilateral, NORMAL BREATHING PATTERN - Cardiovascular Exam Cardiovascular Exam: REGULAR RHYTHM, +S1, +S2. absent: Murmur - GI/Abdominal Exam GI & Abdominal Exam: Soft, Normal Bowel Sounds. absent: Tenderness - Rectal Exam Rectal Exam: NORMAL INSPECTION - Exam Exam: Circumcision, NORMAL INSPECTION External exam: NORMAL EXTERNAL EXAM Speculum exam: NORMAL SPECULUM EXAM Bimanual exam: NORMAL BIMANUAL EXAM - Extremities Exam Extremities Exam: Full ROM, Normal Capillary Refill, Normal Inspection. absent : Joint Swelling, Pedal Edema - Back Exam Back Exam: NORMAL INSPECTION - Skin Skin Exam: Dry, Intact, Normal Color, Warm Assessment and Plan (1) Anemia Status: Acute (2) CHF (congestive heart failure) Status: Acute (3) Cardiac arrest Status: Acute (4) Coagulopathy Status: Acute (5) Open wound of right foot with complication Status: Acute (6) Respiratory failure Status: Acute (7) SAUNDRA (acute kidney injury) Status: Resolved - Assessment and Plan (Free Text) Plan: Patient examined. Patient unresponsive on ventilator. Continue cefepime and amikacin. Continue supportive medications.
[2017-03-19] MEDS: Collagenase 250 Units/gm Ointment(30 gm) TOP SCH (09:46)
[2017-03-19] MEDS: Nystatin 100,000 Units/gm Cream(15 gm) TOP SCH ×3 (09:47→19:43)
[2017-03-19] MEDS: White Petrolatum/Mineral Oil Ophth Oint(3.5 gm) OS PRN (09:47)
--- NOTE | 2017-03-19 09:47 | PN ---
DATE: LOCATION: ICU 17. SUBJECTIVE: This is a 52-year-old male seen and examined around early today. He is still intubated to vent. No significant clinical changes. The entire chart is reviewed including, but not limited to most recent lab and radiology study results, current and previous medication list, current and previous medical events. The patient is still in NG tube feeding and today his lab showed hemoglobin of 9.1 and hematocrit of 27.8, with normal platelet count. Abnormal ABGs with increased sodium to 149, increased BUN to 55, creatinine of 2.5, and blood glucose level of 256, with low albumin of 3.2. Today's chest x-ray is still pending. PHYSICAL EXAMINATION GENERAL: A 52-year-old male not responding to any verbal stimuli. VITAL SIGNS: Afebrile with pulse of 92 and blood pressure of 94/54. HEENT: Showed pale and dry oral mucous membranes. Nonicteric sclerae. LUNGS: Scattered crepitation with decreased air entry at bases. HEART: Positive S1 and S2. ABDOMEN: Soft. Bowel sounds are present. No mass or organomegaly. No rebound tenderness or guarding. EXTREMITIES: Lower extremity edematous changes. No clubbing or cyanosis. NEUROLOGIC: No reported neurological deficits, sensory or motor. No focal deficits. IMPRESSION: 1. Status post cardiac arrest. 2. Malnutrition, hypoalbuminemia. 3. Dysphagia. 4. The patient is a candidate for percutaneous endoscopic gastrostomy insertion. 5. Respiratory failure. 6. The patient is intubated to vent. 7. Anemia most likely secondary to above. 8. Acute renal failure. 9. Poorly controlled diabetes mellitus. SUGGESTIONS: 1. Continue supportive treatment. 2. Still awaiting for the family consent for potential PEG insertion. Yola Sim MD
--- NOTE | 2017-03-19 09:51 | PN ---
LOCATION: ICU 17. SUBJECTIVE: This 62-year-old male seen and examined in rounds early today without significant clinical changes. The entire chart is reviewed including but not limited to the most recent lab and radiology study results, current and previous medication list, current and previous medical events. The patient still intubated due to abnormal ABGs. Today's lab showed hemoglobin of 10.8, low, with low hematocrit 32.7 but normal platelet count with increased BUN at 49, creatinine 2.3, blood glucose level 228 with low calcium of 8.3 but increased magnesium of 2.5 with low albumin 3.4. Chest x-ray report today's is seen indicative of mild venous congestion with bilateral pneumonia and small left pleural effusion with mild cardiomegaly. PHYSICAL EXAMINATION: GENERAL: Showed no significant clinical changes. VITAL SIGNS: The patient is afebrile with heart rate of 90, blood pressure of 124/66. The patient is unresponsive on any verbal or physical stimuli. NEUROLOGIC: No reported new neurological deficits, sensory, or motor. IMPRESSION: 1. Respiratory failure, pneumonia, small pleural effusion. The patient is intubated. 2. Status post cardiac arrest. 3. Acute renal failure. 4. Anemia most likely secondary to above. 6. Poorly controlled diabetes mellitus. 7. The patient is a candidate for PEG insertion, awaiting family consent. SUGGESTIONS: 1. Continue current management. 2. Central hyperalimentation. Yola Sim MD cc: Yola Sim MD
--- NOTE | 2017-03-19 10:14 | CP.PCM.PN ---
Subjective - Date & Time of Evaluation Date of Evaluation: 03/19/17 Time of Evaluation: 08:00 - Subjective Subjective: unresponsive on vent await amikacin levels Objective - Vital Signs/Intake and Output Vital Signs (last 24 hours): Temp Pulse Resp BP Pulse Ox 98.9 F 83 16 106/36 L 100 03/19/17 04:00 03/19/17 07:00 03/19/17 07:00 03/19/17 07:00 03/19/17 07:00 Intake and Output: 03/19/17 03/19/17 06:59 18:59 Intake Total 520 135 Output Total 700 50 Balance -180 85 - Medications Medications: Current Medications Acetaminophen (Tylenol 650mg/20.3ml Solution Ud) 650 mg PO Q4 PRN PRN Reason: temp >101 Last Admin: 03/18/17 23:56 Dose: 650 mg Albuterol/Ipratropium (Duoneb 3 Mg/0.5 Mg (3 Ml) Ud) 3 ml INH RQ6 [facility] Last Admin: 03/19/17 07:52 Dose: 3 ml Artificial Tears (Lacri-Lube) 0 gm OS Q4H PRN PRN Reason: Other Last Admin: 03/19/17 09:47 Dose: 3.5 gm Calcium Acetate (Phoslo) 667 mg GT TIDCC [facility] Last Admin: 03/19/17 08:56 Dose: 667 mg Collagenase (Santyl) 0 gm TOP DAILY [facility] Last Admin: 03/19/17 09:46 Dose: 1 applic Heparin Sodium (Porcine) (Heparin) 5,000 units SC Q12 [facility] Last Admin: 03/19/17 09:41 Dose: 5,000 units Cefepime HCl (Maxipime Iv 2 Gm Premix) 2 gm in 100 mls @ 100 mls/hr IVPB Q12H [facility] Last Admin: 03/19/17 05:12 Dose: 100 mls/hr Amikacin Sulfate 1,065 mg/ (Sodium Chloride) 254.26 mls @ 254.26 mls/hr IVPB Q48H [facility] Last Admin: 03/17/17 12:07 Dose: 254.26 mls/hr Insulin Human Regular (Novolin R) 0 unit SC Q6 [facility] PRN Reason: Protocol Last Admin: 03/19/17 05:11 Dose: 4 unit Levetiracetam (Keppra) 500 mg PO Q12 [facility] Last Admin: 03/18/17 21:03 Dose: 500 mg Nystatin (Mycostatin Cream) 0 ea TOP TID [facility] Last Admin: 03/19/17 09:47 Dose: 1 applic Pantoprazole Sodium (Protonix Inj) 40 mg IVP DAILY [facility] Last Admin: 03/19/17 09:42 Dose: 40 mg Phenobarbital (Phenobarbital Inj) 90 mg IV Q8 [facility] Last Admin: 03/19/17 05:11 Dose: 90 mg Potassium Chloride (Potassium Chloride Oral Soln) 20 meq GT ONCE [facility] Last Admin: 03/09/17 13:52 Dose: 20 meq - Labs Labs: 03/19/17 06:13 03/19/17 06:13 PT 13.6 SECONDS (9.7-12.2) H 03/10/17 12:24 INR 1.2 03/10/17 12:24 APTT 32 SECONDS (21-34) 03/10/17 12:24 - Constitutional Appears: Non-toxic, Chronically Ill - Head Exam Head Exam: NORMOCEPHALIC - Eye Exam Eye Exam: absent: Scleral icterus - ENT Exam ENT Exam: Mucous Membranes Dry - Neck Exam Neck Exam: absent: Lymphadenopathy - Respiratory Exam Respiratory Exam: Decreased Breath Sounds - Cardiovascular Exam Cardiovascular Exam: REGULAR RHYTHM - GI/Abdominal Exam GI & Abdominal Exam: Distended Assessment and Plan (1) Cardiac arrest Status: Acute (2) Open wound of right foot with complication Status: Acute (3) Respiratory failure Status: Acute (4) Anoxic encephalopathy Status: Acute (5) Anoxic encephalopathy Status: Acute
[2017-03-19] MEDS: levETIRAcetam 100 mg/ml (5ml) Oral Syringe PO SCH ×2 (10:46→21:14)
--- NOTE | 2017-03-19 11:07 | CP.PCM.PN ---
Subjective - Date & Time of Evaluation Date of Evaluation: 03/19/17 Time of Evaluation: 11:04 - Subjective Subjective: No changes neurologically Not responsive Remains on vent Good UO= 1640 ml Creat increased ; Na level increased Objective - Vital Signs/Intake and Output Vital Signs (last 24 hours): Temp Pulse Resp BP Pulse Ox 98.9 F 90 16 96/47 L 100 03/19/17 04:00 03/19/17 11:00 03/19/17 11:00 03/19/17 11:00 03/19/17 11:00 Intake and Output: 03/19/17 03/19/17 06:59 18:59 Intake Total 520 240 Output Total 700 350 Balance -180 -110 - Medications Medications: Current Medications Acetaminophen (Tylenol 650mg/20.3ml Solution Ud) 650 mg PO Q4 PRN PRN Reason: temp >101 Last Admin: 03/18/17 23:56 Dose: 650 mg Albuterol/Ipratropium (Duoneb 3 Mg/0.5 Mg (3 Ml) Ud) 3 ml INH RQ6 [facility] Last Admin: 03/19/17 07:52 Dose: 3 ml Artificial Tears (Lacri-Lube) 0 gm OS Q4H PRN PRN Reason: Other Last Admin: 03/19/17 09:47 Dose: 3.5 gm Calcium Acetate (Phoslo) 667 mg GT TIDCC [facility] Last Admin: 03/19/17 08:56 Dose: 667 mg Collagenase (Santyl) 0 gm TOP DAILY [facility] Last Admin: 03/19/17 09:46 Dose: 1 applic Heparin Sodium (Porcine) (Heparin) 5,000 units SC Q12 [facility] Last Admin: 03/19/17 09:41 Dose: 5,000 units Cefepime HCl (Maxipime Iv 2 Gm Premix) 2 gm in 100 mls @ 100 mls/hr IVPB Q12H [facility] Last Admin: 03/19/17 05:12 Dose: 100 mls/hr Amikacin Sulfate 1,065 mg/ (Sodium Chloride) 254.26 mls @ 254.26 mls/hr IVPB Q48H [facility] Last Admin: 03/17/17 12:07 Dose: 254.26 mls/hr Insulin Human Regular (Novolin R) 0 unit SC Q6 [facility] PRN Reason: Protocol Last Admin: 03/19/17 05:11 Dose: 4 unit Levetiracetam (Keppra) 500 mg PO Q12 [facility] Last Admin: 03/19/17 10:46 Dose: 500 mg Nystatin (Mycostatin Cream) 0 ea TOP TID [facility] Last Admin: 03/19/17 09:47 Dose: 1 applic Pantoprazole Sodium (Protonix Inj) 40 mg IVP DAILY [facility] Last Admin: 03/19/17 09:42 Dose: 40 mg Phenobarbital (Phenobarbital Inj) 90 mg IV Q8 [facility] Last Admin: 03/19/17 05:11 Dose: 90 mg Potassium Chloride (Potassium Chloride Oral Soln) 20 meq GT ONCE [facility] Last Admin: 03/09/17 13:52 Dose: 20 meq - Labs Labs: 03/19/17 06:13 03/19/17 06:13 PT 13.6 SECONDS (9.7-12.2) H 03/10/17 12:24 INR 1.2 03/10/17 12:24 APTT 32 SECONDS (21-34) 03/10/17 12:24 - Constitutional Appears: No Acute Distress, Chronically Ill - Head Exam Head Exam: ATRAUMATIC, NORMAL INSPECTION - Neck Exam Neck Exam: Normal Inspection. absent: Tenderness - Respiratory Exam Respiratory Exam: Clear to Ausculation Bilateral, NORMAL BREATHING PATTERN - Cardiovascular Exam Cardiovascular Exam: REGULAR RHYTHM, +S1 - GI/Abdominal Exam GI & Abdominal Exam: Soft. absent: Tenderness - Extremities Exam Extremities Exam: Normal Inspection. absent: Tenderness - Neurological Exam Neurological Exam: Altered, Motor Sensory Deficit - Skin Skin Exam: Dry, Warm Assessment and Plan (1) SAUNDRA (acute kidney injury) Status: Resolved (2) CHF (congestive heart failure) Status: Acute (3) Cardiac arrest Status: Acute (4) Open wound of right foot with complication Status: Acute (5) Respiratory failure Status: Acute - Assessment and Plan (Free Text) Plan: Trial D5W Monitor for DI
[2017-03-19 12:26] LABS: RBC URINE 3 /hpf (0-3); URINE BACTERIA RARE (<OCC); URINE BILIRUBIN NEGATIVE (NEGATIVE); URINE COLOR Yellow (YELLOW); URINE GLUCOSE (UA) NORMAL (Normal); URINE KETONE NEGATIVE (NEGATIVE); URINE LEUKOCYTE ESTERASE NEG Leu/uL (Negative); URINE PROTEIN 2+ mg/dL (NEGATIVE); URINE UROBILINOGEN NORMAL mg/dL (0.2-1.0); WBC URINE 3 /hpf (0-5)
[2017-03-19 12:28] LABS: URINE BLOOD 1+ (NEGATIVE)
--- NOTE | 2017-03-19 12:56 | PN ---
DATE: LOCATION: ICU 17. SUBJECTIVE: This is a 52-year-old male seen and examined without significant clinical changes, with no eye contact noted. The entire chart is reviewed including but not limited to the most recent lab and the radiology study results, current and the previous medication list, current and the previous medical events, Case discussed with the staff at length in the intensive care unit and the patient's hemoglobin is 9.2, hematocrit 28.9 with normal platelet count, with abnormal ABGs, but increased sodium of 151. BUN 67 and creatinine 2.9. Blood glucose level of 228. Elevated magnesium at 2.9. Albumin is still low at 3.3. PHYSICAL EXAMINATION: GENERAL: This is a 52-year-old male, intubated. VITAL SIGNS: Afebrile with pulse of 86 and blood pressure of 110/62. HEENT: Showed pale and dry mucoid membrane and nonicteric sclerae. LUNGS: Scattered crepitation and decreased air entry at bases. HEART: Positive S1 and S2. ABDOMEN: Soft. Slight distention. NG tube is in place. NEUROLOGIC: No reported new neurological deficits, sensory or motor. EXTREMITIES: Lower extremity edematous changes. She has more decubiti reported. IMPRESSION: 1. Anoxic encephalopathy. 2. Malnutrition with hypoalbuminemia. 3. Status post cardiac arrest. 4. Dysphagia. 5. Respiratory failure. PLAN: The patient is intubated to vent. The patient is a candidate for PEG insertion. Awaiting family legal consent. Yola Sim MD cc: Yola Sim MD
[2017-03-19] MEDS: AMIKACIN SULFATE IVPB SCH (13:25)
[2017-03-19] MEDS: SODIUM CHLORIDE 0.9% IVPB SCH (13:25)
--- NOTE | 2017-03-19 15:22 | CP.PCM.PN ---
Subjective - Date & Time of Evaluation Date of Evaluation: 03/19/17 Time of Evaluation: 01:00 - Subjective Subjective: Remains unresponsive Objective - Vital Signs/Intake and Output Vital Signs (last 24 hours): Temp Pulse Resp BP Pulse Ox 99.5 F 90 16 96/47 L 100 03/19/17 08:00 03/19/17 11:00 03/19/17 11:00 03/19/17 11:00 03/19/17 11:00 Intake and Output: 03/19/17 03/19/17 06:59 18:59 Intake Total 520 275 Output Total 700 425 Balance -180 -150 - Medications Medications: Current Medications Acetaminophen (Tylenol 650mg/20.3ml Solution Ud) 650 mg PO Q4 PRN PRN Reason: temp >101 Last Admin: 03/18/17 23:56 Dose: 650 mg Albuterol/Ipratropium (Duoneb 3 Mg/0.5 Mg (3 Ml) Ud) 3 ml INH RQ6 [facility] Last Admin: 03/19/17 13:17 Dose: 3 ml Artificial Tears (Lacri-Lube) 0 gm OS Q4H PRN PRN Reason: Other Last Admin: 03/19/17 09:47 Dose: 3.5 gm Calcium Acetate (Phoslo) 667 mg GT TIDCC [facility] Last Admin: 03/19/17 11:56 Dose: 667 mg Collagenase (Santyl) 0 gm TOP DAILY [facility] Last Admin: 03/19/17 09:46 Dose: 1 applic Heparin Sodium (Porcine) (Heparin) 5,000 units SC Q12 [facility] Last Admin: 03/19/17 09:41 Dose: 5,000 units Cefepime HCl (Maxipime Iv 2 Gm Premix) 2 gm in 100 mls @ 100 mls/hr IVPB Q12H [facility] Last Admin: 03/19/17 05:12 Dose: 100 mls/hr Amikacin Sulfate 1,065 mg/ (Sodium Chloride) 254.26 mls @ 254.26 mls/hr IVPB Q48H [facility] Last Admin: 03/19/17 13:25 Dose: 254.26 mls/hr Dextrose (Dextrose 5% In Water 1000 Ml) 1,000 mls @ 50 mls/hr IV .Q20H [facility] Last Admin: 03/19/17 11:30 Dose: 50 mls/hr Insulin Human Regular (Novolin R) 0 unit SC Q6 TENA PRN Reason: Protocol Last Admin: 03/19/17 11:55 Dose: 6 unit Levetiracetam (Keppra) 500 mg PO Q12 [facility] Last Admin: 03/19/17 10:46 Dose: 500 mg Nystatin (Mycostatin Cream) 0 ea TOP TID [facility] Last Admin: 03/19/17 09:47 Dose: 1 applic Pantoprazole Sodium (Protonix Inj) 40 mg IVP DAILY [facility] Last Admin: 03/19/17 09:42 Dose: 40 mg Phenobarbital (Phenobarbital Inj) 90 mg IV Q8 [facility] Last Admin: 03/19/17 05:11 Dose: 90 mg Potassium Chloride (Potassium Chloride Oral Soln) 20 meq GT ONCE [facility] Last Admin: 03/09/17 13:52 Dose: 20 meq - Labs Labs: 03/19/17 06:13 03/19/17 06:13 PT 13.6 SECONDS (9.7-12.2) H 03/10/17 12:24 INR 1.2 03/10/17 12:24 APTT 32 SECONDS (21-34) 03/10/17 12:24 - Constitutional Appears: In Acute Distress - Head Exam Head Exam: ATRAUMATIC, NORMAL INSPECTION, NORMOCEPHALIC - Eye Exam Additional comments: No reactions to light - ENT Exam Additional comments: ETT tube - Respiratory Exam Additional comments: On MV - Cardiovascular Exam Cardiovascular Exam: Tachycardia - GI/Abdominal Exam GI & Abdominal Exam: Diminished Bowel Sounds - Rectal Exam Rectal Exam: Deferred - Extremities Exam Extremities Exam: Pedal Edema - Back Exam Back Exam: NORMAL INSPECTION - Neurological Exam Neurological Exam: Motor Sensory Deficit Neuro motor strength exam: Left Upper Extremity: 0, Right Upper Extremity: 0, Left Lower Extremity: 0, Right Lower Extremity: 0 - Psychiatric Exam Psychiatric exam: Flat Affect - Skin Skin Exam: Pallor Assessment and Plan - Assessment and Plan (Free Text) Assessment: Patient remains unresponsive to stimuli. The two sisters and a brother in law are advocating for him. After multiple family meetings and over the phone discussions regarding the concerns about lost quality of life, family is still having difficult time deciding on Comfort measures only. I met with family after they discussed removal of life support with Doctor Hwang. The younger sister was still having extremely difficult time deciding. Despite all past discussion about unfortunate circumstances and grave prognosis, family still believes that patient would be able to survive removal of life support and requested the SS to assist them with plans with placement to a [facility] facility. Doctor Jaiden was very clear that removing MV support may cause patient some discomfort and he may need a Morphine to suppress respiratory drive and make him comfortable. Family agreed. The family feels that by removing the life support , they are giving the chance o the God to decide what is the best for the patient. If patient dies, they would want him to comfortably. If patient survives, than they would precede with new goals of care. POLST signed by patient's older sister Ceci. Order placed. I made Doctor jennifer English aware and he agreed. Extubation was planned for 5 pm this evening. Family declined Pastoral suppot as offered stating that they had somebody from their [facility]. Impression * patient remains unresponsive and with terminal prognosis * Family was having extremely difficult time deciding on promoting of natural despite multiple metings with care providers * Family decided to remove life support today at 5 pm , but still hopes, patient will survive it; they want NG feedings and all other interventions to remain in place except the ETT * Pastoral care for spiritual support offered but family declined * Family does not want any information about patient to be shared with anybody else but the two sisters and brother in law Suggestion * Agree with Comfort care only and removal of life support This was shared with nursing.
--- NOTE | 2017-03-19 16:12 | RAD ---
HISTORY: vented COMPARISON: Multiple prior chest x-rays, most recent performed 03/18/17 TECHNIQUE: Chest, one view. FINDINGS: Endotracheal tube terminates approximately 5.5 cm above the samuel. Nasogastric tube extends the expected location of the stomach. LUNGS: Mild pulmonary venous congestion. No focal consolidation. Please note that chest x-ray has limited sensitivity for the detection of pulmonary masses. PLEURA: No significant pleural effusion identified. No definite pneumothorax . CARDIOVASCULAR: Heart size appears top normal. OSSEOUS STRUCTURES: Degenerative changes. VISUALIZED UPPER ABDOMEN: Unremarkable. OTHER FINDINGS: None. IMPRESSION: Endotracheal tube and nasogastric tube as above. Mild pulmonary venous congestion.
--- NOTE | 2017-03-19 16:50 | CP.CCUPN ---
<Temi Rosales - Last Filed: 03/19/17 16:47> CCU Subjective - Physician Review Subjective (Free Text): Patient seen and examined at bedside. ROS unobtainable due to patient's current clinical status. Family decided on comfort care only. Patient to be terminally extubated today at 5pm. CCU Objective - Vital Signs / Intake & Output Intake and Output (Last 8hrs): Intake & Output 03/19/17 03/19/17 03/19/17 06:59 14:59 22:59 Intake Total 380 275 Output Total 430 425 Balance -50 -150 Weight 149 lb Intake: Tube Feeding 280 175 Other 100 100 Output: Urine 430 425 Urethral (Gipson) 430 425 Other: # Bowel Movements 1 - Physical Exam Head: Positive for: Atraumatic, Normocephalic Mouth: Positive for: Moist Mucous Membranes Respiratory/Chest: Positive for: Rales Cardiovascular: Positive for: Regular Rate and Rhythm, Normal S1, S2 Abdomen: Positive for: Normal Bowel Sounds. 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 Negative for: Alert, Oriented x 3 - Medications Active Medications: Active Medications Generic Name Dose Route Start Last Admin Trade Name Freq PRN Reason Stop Dose Admin Acetaminophen 650 mg 03/05/17 22:55 03/18/17 23:56 Tylenol 650mg/20.3ml Solution Ud PO 650 mg Q4 PRN Administration temp >101 Albuterol/Ipratropium 3 ml 03/10/17 20:00 03/19/17 13:17 Duoneb 3 Mg/0.5 Mg (3 Ml) Ud INH 3 ml RQ6 TENA Administration Artificial Tears 0 gm 03/06/17 10:04 03/19/17 09:47 Lacri-Lube OS 3.5 gm Q4H PRN Administration Other Calcium Acetate 667 mg 03/08/17 10:00 03/19/17 11:56 Phoslo GT 667 mg TIDCC TENA Administration Heparin Sodium (Porcine) 5,000 units 03/14/17 22:00 03/19/17 09:41 Heparin SC 5,000 units Q12 TENA Administration Cefepime HCl 2 gm in 100 mls @ 100 mls/hr 03/13/17 18:00 03/19/17 05:12 Maxipime Iv 2 Gm Premix IVPB 100 mls/hr Q12H TENA Administration Amikacin Sulfate 1,065 mg/ 254.26 mls @ 254.26 mls/hr 03/15/17 13:00 13:25 Sodium Chloride IVPB 254.26 mls/hr Q48H TENA Administration Dextrose 1,000 mls @ 50 mls/hr 03/19/17 11:15 03/19/17 11:30 Dextrose 5% In Water 1000 Ml IV 50 mls/hr .Q20H TENA Administration Insulin Human Regular 0 unit 03/14/17 00:00 03/19/17 11:55 Novolin R SC 6 unit Q6 TENA Administration Protocol Levetiracetam 500 mg 03/14/17 22:00 03/19/17 10:46 Keppra PO 500 mg Q12 TENA Administration Nystatin 0 ea 03/16/17 10:00 03/19/17 09:47 Mycostatin Cream TOP 1 applic TID TENA Administration Pantoprazole Sodium 40 mg 03/05/17 10:00 03/19/17 09:42 Protonix Inj IVP 40 mg DAILY TENA Administration Phenobarbital 90 mg 03/10/17 06:00 03/19/17 05:11 Phenobarbital Inj IV 90 mg Q8 TENA Administration Potassium Chloride 20 meq 03/09/17 13:15 03/09/17 13:52 Potassium Chloride Oral Soln GT 20 meq ONCE TENA Administration - Patient Studies Lab Studies: Microbiology Studies 03/13/17 17:00 Blood Culture - Final Blood NO GROWTH AFTER 5 DAYS Gram Stain - Final TEST NOT PERFORMED 03/13/17 17:00 Blood Culture - Final Blood NO GROWTH AFTER 5 DAYS Gram Stain - Final TEST NOT PERFORMED Lab Studies 03/19/17 03/19/17 03/19/17 Range/Units 12:16 11:43 11:07 WBC (4.8-10.8) K/uL RBC (4.40-5.90) Mil/uL Hgb (12.0-18.0) g/dL Hct (35.0-51.0) % MCV (80.0-94.0) fL MCH (27.0-31.0) pg MCHC (33.0-37.0) g/dL RDW (11.5-14.5) % Plt Count (130-400) K/uL MPV (7.2-11.7) fL Neut % (Auto) (50.0-75.0) % Lymph % (Auto) (20.0-40.0) % [place] % (Auto) (0.0-10.0) % Eos % (Auto) (0.0-4.0) % Baso % (Auto) (0.0-2.0) % Neut # (1.8-7.0) K/uL Lymph # (1.0-4.3) K/uL [place] # (0.0-0.8) K/uL Eos # (0.0-0.7) K/uL Baso # (0.0-0.2) K/uL Puncture Site pCO2 (35-45) mm/Hg pO2 (80-100) mm/Hg HCO3 (21-28) mmol/L ABG pH (7.35-7.45) ABG Total CO2 (22-28) mmol/L ABG O2 Saturation (95-98) % ABG Base Excess (-2.0-3.0) mmol/L ABG Hemoglobin (11.7-17.4) g/dL ABG Carboxyhemoglobin (0.5-1.5) % POC ABG HHb (Measured) (0.0-5.0) % ABG Methemoglobin (0.0-3.0) % Reji Test A-a O2 Difference mm/Hg Respiratory Index Hgb O2 Saturation (95.0-98.0) % Vent Mode Mechanical Rate FiO2 % Tidal Volume PEEP Sodium (132-148) mmol/L Potassium (3.6-5.2) mmol/L Chloride (98-107) mmol/L Carbon Dioxide (22-30) mmol/L Anion Gap (10-20) BUN (9-20) mg/dL Creatinine (0.8-1.5) mg/dL Est GFR ( Amer) Est GFR (Non-Af Amer) POC Glucose (mg/dL) 253 H (65-110) mg/dL Random Glucose (75-110) mg/dL Calcium (8.6-10.4) mg/dl Phosphorus (2.5-4.5) mg/dL Magnesium (1.6-2.3) mg/dL Total Bilirubin (0.2-1.3) mg/dL AST (17-59) U/L ALT (21-72) U/L Alkaline Phosphatase (38-126) U/L Total Protein (6.3-8.3) g/dL Albumin (3.5-5.0) g/dL Globulin (2.2-3.9) gm/dL Albumin/Globulin Ratio (1.0-2.1) Urine Color Yellow (YELLOW) Urine Clarity Hazy (Clear) Urine pH 5.0 (5.0-8.0) Ur Specific [place] 1.016 (1.003-1.030) Urine Protein 2+ H (NEGATIVE) mg/dL Urine Glucose (UA) Normal (Normal) mg/dL Urine Ketones Negative (NEGATIVE) mg/dL Urine Blood 1+ H (NEGATIVE) Urine Nitrate Negative (NEGATIVE) Urine Bilirubin Negative (NEGATIVE) Urine Urobilinogen Normal (0.2-1.0) mg/dL Ur Leukocyte Esterase Neg (Negative) Mika/uL Urine WBC (Auto) 3 (0-5) /hpf Urine RBC (Auto) 3 (0-3) /hpf Amorphous Sediment Few H (<OCC) /ul Urine Bacteria Rare (<OCC) Urine Osmolality 409 (300-1000) mosm/kg Ur Random Sodium 42 mmol/L 03/19/17 03/19/17 03/19/17 Range/Units 06:13 06:13 05:09 WBC 8.9 (4.8-10.8) K/uL RBC 3.14 L (4.40-5.90) Mil/uL Hgb 9.2 L (12.0-18.0) g/dL Hct 28.9 L (35.0-51.0) % MCV 92.0 (80.0-94.0) fL MCH 29.2 (27.0-31.0) pg MCHC 31.7 L (33.0-37.0) g/dL RDW 15.5 H (11.5-14.5) % Plt Count 235 (130-400) K/uL MPV 10.4 (7.2-11.7) fL Neut % (Auto) 73.9 (50.0-75.0) % Lymph % (Auto) 17.1 L (20.0-40.0) % [place] % (Auto) 5.2 (0.0-10.0) % Eos % (Auto) 3.4 (0.0-4.0) % Baso % (Auto) 0.4 (0.0-2.0) % Neut # 6.6 (1.8-7.0) K/uL Lymph # 1.5 (1.0-4.3) K/uL [place] # 0.5 (0.0-0.8) K/uL Eos # 0.3 (0.0-0.7) K/uL Baso # 0.0 (0.0-0.2) K/uL Puncture Site pCO2 (35-45) mm/Hg pO2 (80-100) mm/Hg HCO3 (21-28) mmol/L ABG pH (7.35-7.45) ABG Total CO2 (22-28) mmol/L ABG O2 Saturation (95-98) % ABG Base Excess (-2.0-3.0) mmol/L ABG Hemoglobin (11.7-17.4) g/dL ABG Carboxyhemoglobin (0.5-1.5) % POC ABG HHb (Measured) (0.0-5.0) % ABG Methemoglobin (0.0-3.0) % Reji Test A-a O2 Difference mm/Hg Respiratory Index Hgb O2 Saturation (95.0-98.0) % Vent Mode Mechanical Rate FiO2 % Tidal Volume PEEP Sodium 151 H (132-148) mmol/L Potassium 4.2 (3.6-5.2) mmol/L Chloride 112 H (98-107) mmol/L Carbon Dioxide 25 (22-30) mmol/L Anion Gap 18 (10-20) BUN 67 H (9-20) mg/dL Creatinine 2.9 H (0.8-1.5) mg/dL Est GFR ( Amer) 28 Est GFR (Non-Af Amer) 23 POC Glucose (mg/dL) 228 H (65-110) mg/dL Random Glucose 183 H (75-110) mg/dL Calcium 8.8 (8.6-10.4) mg/dl Phosphorus 4.4 (2.5-4.5) mg/dL Magnesium 2.9 H (1.6-2.3) mg/dL Total Bilirubin 0.5 (0.2-1.3) mg/dL AST 51 (17-59) U/L ALT 29 (21-72) U/L Alkaline Phosphatase 100 (38-126) U/L Total Protein 7.9 (6.3-8.3) g/dL Albumin 3.3 L (3.5-5.0) g/dL Globulin 4.6 H (2.2-3.9) gm/dL Albumin/Globulin Ratio 0.7 L (1.0-2.1) Urine Color (YELLOW) Urine Clarity (Clear) Urine pH (5.0-8.0) Ur Specific [place] (1.003-1.030) Urine Protein (NEGATIVE) mg/dL Urine Glucose (UA) (Normal) mg/dL Urine Ketones (NEGATIVE) mg/dL Urine Blood (NEGATIVE) Urine Nitrate (NEGATIVE) Urine Bilirubin (NEGATIVE) Urine Urobilinogen (0.2-1.0) mg/dL Ur Leukocyte Esterase (Negative) Mika/uL Urine WBC (Auto) (0-5) /hpf Urine RBC (Auto) (0-3) /hpf Amorphous Sediment (<OCC) /ul Urine Bacteria (<OCC) Urine Osmolality (300-1000) mosm/kg Ur Random Sodium mmol/L 03/19/17 03/18/17 03/18/17 Range/Units 04:40 23:51 17:39 WBC (4.8-10.8) K/uL RBC (4.40-5.90) Mil/uL Hgb (12.0-18.0) g/dL Hct (35.0-51.0) % MCV (80.0-94.0) fL MCH (27.0-31.0) pg MCHC (33.0-37.0) g/dL RDW (11.5-14.5) % Plt Count (130-400) K/uL MPV (7.2-11.7) fL Neut % (Auto) (50.0-75.0) % Lymph % (Auto) (20.0-40.0) % [place] % (Auto) (0.0-10.0) % Eos % (Auto) (0.0-4.0) % Baso % (Auto) (0.0-2.0) % Neut # (1.8-7.0) K/uL Lymph # (1.0-4.3) K/uL [place] # (0.0-0.8) K/uL Eos # (0.0-0.7) K/uL Baso # (0.0-0.2) K/uL Puncture Site Rr pCO2 44 (35-45) mm/Hg pO2 178 H (80-100) mm/Hg HCO3 27.7 (21-28) mmol/L ABG pH 7.42 (7.35-7.45) ABG Total CO2 29.9 H (22-28) mmol/L ABG O2 Saturation 99.3 H (95-98) % ABG Base Excess 3.5 H (-2.0-3.0) mmol/L ABG Hemoglobin 10.9 L (11.7-17.4) g/dL ABG Carboxyhemoglobin 1.4 (0.5-1.5) % POC ABG HHb (Measured) 0.7 (0.0-5.0) % ABG Methemoglobin 1.2 (0.0-3.0) % Reji Test Pos A-a O2 Difference 124.0 mm/Hg Respiratory Index 0.7 Hgb O2 Saturation 96.7 (95.0-98.0) % Vent Mode Prvc Mechanical Rate 16 FiO2 50.0 % Tidal Volume 450 PEEP 5 Sodium (132-148) mmol/L Potassium (3.6-5.2) mmol/L Chloride (98-107) mmol/L Carbon Dioxide (22-30) mmol/L Anion Gap (10-20) BUN (9-20) mg/dL Creatinine (0.8-1.5) mg/dL Est GFR ( Amer) Est GFR (Non-Af Amer) POC Glucose (mg/dL) 259 H 231 H (65-110) mg/dL Random Glucose (75-110) mg/dL Calcium (8.6-10.4) mg/dl Phosphorus (2.5-4.5) mg/dL Magnesium (1.6-2.3) mg/dL Total Bilirubin (0.2-1.3) mg/dL AST (17-59) U/L ALT (21-72) U/L Alkaline Phosphatase (38-126) U/L Total Protein (6.3-8.3) g/dL Albumin (3.5-5.0) g/dL Globulin (2.2-3.9) gm/dL Albumin/Globulin Ratio (1.0-2.1) Urine Color (YELLOW) Urine Clarity (Clear) Urine pH (5.0-8.0) Ur Specific [place] (1.003-1.030) Urine Protein (NEGATIVE) mg/dL Urine Glucose (UA) (Normal) mg/dL Urine Ketones (NEGATIVE) mg/dL Urine Blood (NEGATIVE) Urine Nitrate (NEGATIVE) Urine Bilirubin (NEGATIVE) Urine Urobilinogen (0.2-1.0) mg/dL Ur Leukocyte Esterase (Negative) Mika/uL Urine WBC (Auto) (0-5) /hpf Urine RBC (Auto) (0-3) /hpf Amorphous Sediment (<OCC) /ul Urine Bacteria (<OCC) Urine Osmolality (300-1000) mosm/kg Ur Random Sodium mmol/L Laboratory Results - last 24 hr 03/18/17 03/18/17 03/19/17 17:39 23:51 04:40 WBC RBC Hgb Hct MCV MCH MCHC RDW Plt Count MPV Neut % (Auto) Lymph % (Auto) [place] % (Auto) Eos % (Auto) Baso % (Auto) Neut # Lymph # [place] # Eos # Baso # Puncture Site Rr pCO2 44 pO2 178 H HCO3 27.7 ABG pH 7.42 ABG Total CO2 29.9 H ABG O2 Saturation 99.3 H ABG Base Excess 3.5 H ABG Hemoglobin 10.9 L ABG Carboxyhemoglobin 1.4 POC ABG HHb (Measured) 0.7 ABG Methemoglobin 1.2 Reji Test Pos A-a O2 Difference 124.0 Respiratory Index 0.7 Hgb O2 Saturation 96.7 Vent Mode Prvc Mechanical Rate 16 FiO2 50.0 Tidal Volume 450 PEEP 5 Sodium Potassium Chloride Carbon Dioxide Anion Gap BUN Creatinine Est GFR ( Amer) Est GFR (Non-Af Amer) POC Glucose (mg/dL) 231 H 259 H Random Glucose Calcium Phosphorus Magnesium Total Bilirubin AST ALT Alkaline Phosphatase Total Protein Albumin Globulin Albumin/Globulin Ratio Urine Color Urine Clarity Urine pH Ur Specific [place] Urine Protein Urine Glucose (UA) Urine Ketones Urine Blood Urine Nitrate Urine Bilirubin Urine Urobilinogen Ur Leukocyte Esterase Urine WBC (Auto) Urine RBC (Auto) Amorphous Sediment Urine Bacteria Urine Osmolality Ur Random Sodium 03/19/17 03/19/17 03/19/17 05:09 06:13 06:13 WBC 8.9 RBC 3.14 L Hgb 9.2 L Hct 28.9 L MCV 92.0 MCH 29.2 MCHC 31.7 L RDW 15.5 H Plt Count 235 MPV 10.4 Neut % (Auto) 73.9 Lymph % (Auto) 17.1 L [place] % (Auto) 5.2 Eos % (Auto) 3.4 Baso % (Auto) 0.4 Neut # 6.6 Lymph # 1.5 [place] # 0.5 Eos # 0.3 Baso # 0.0 Puncture Site pCO2 pO2 HCO3 ABG pH ABG Total CO2 ABG O2 Saturation ABG Base Excess ABG Hemoglobin ABG Carboxyhemoglobin POC ABG HHb (Measured) ABG Methemoglobin Reji Test A-a O2 Difference Respiratory Index Hgb O2 Saturation Vent Mode Mechanical Rate FiO2 Tidal Volume PEEP Sodium 151 H Potassium 4.2 Chloride 112 H Carbon Dioxide 25 Anion Gap 18 BUN 67 H Creatinine 2.9 H Est GFR ( Amer) 28 Est GFR (Non-Af Amer) 23 POC Glucose (mg/dL) 228 H Random Glucose 183 H Calcium 8.8 Phosphorus 4.4 Magnesium 2.9 H Total Bilirubin 0.5 AST 51 ALT 29 Alkaline Phosphatase 100 Total Protein 7.9 Albumin 3.3 L Globulin 4.6 H Albumin/Globulin Ratio 0.7 L Urine Color Urine Clarity Urine pH Ur Specific [place] Urine Protein Urine Glucose (UA) Urine Ketones Urine Blood Urine Nitrate Urine Bilirubin Urine Urobilinogen Ur Leukocyte Esterase Urine WBC (Auto) Urine RBC (Auto) Amorphous Sediment Urine Bacteria Urine Osmolality Ur Random Sodium 03/19/17 03/19/17 03/19/17 11:07 11:43 12:16 WBC RBC Hgb Hct MCV MCH MCHC RDW Plt Count MPV Neut % (Auto) Lymph % (Auto) [place] % (Auto) Eos % (Auto) Baso % (Auto) Neut # Lymph # [place] # Eos # Baso # Puncture Site pCO2 pO2 HCO3 ABG pH ABG Total CO2 ABG O2 Saturation ABG Base Excess ABG Hemoglobin ABG Carboxyhemoglobin POC ABG HHb (Measured) ABG Methemoglobin Reji Test A-a O2 Difference Respiratory Index Hgb O2 Saturation Vent Mode Mechanical Rate FiO2 Tidal Volume PEEP Sodium Potassium Chloride Carbon Dioxide Anion Gap BUN Creatinine Est GFR ( Amer) Est GFR (Non-Af Amer) POC Glucose (mg/dL) 253 H Random Glucose Calcium Phosphorus Magnesium Total Bilirubin AST ALT Alkaline Phosphatase Total Protein Albumin Globulin Albumin/Globulin Ratio Urine Color Yellow Urine Clarity Hazy Urine pH 5.0 Ur Specific [place] 1.016 Urine Protein 2+ H Urine Glucose (UA) Normal Urine Ketones Negative Urine Blood 1+ H Urine Nitrate Negative Urine Bilirubin Negative Urine Urobilinogen Normal Ur Leukocyte Esterase Neg Urine WBC (Auto) 3 Urine RBC (Auto) 3 Amorphous Sediment Few H Urine Bacteria Rare Urine Osmolality 409 Ur Random Sodium 42 Fingerstick Blood Sugar Results: 2,314 Review of Systems - Review of Systems Systems not reviewed;Unavailable: Intubated Assessment/Plan - Assessment and Plan (Free Text) Assessment: 52 y/o M with pmhx of HTN, DM II, kidney disease, who was brought to the ED after he collapsed in ED at home and was found in asystole. Patient given 3 doses of epi and CPR for 15 minutes then ROSC. Patient intubated in the field. Patient went into cardiac arrest twice more in the ICU. Today's Plan: comfort care for patient and to be terminally extubated at 5pm. Neuro: Intubated, altered mental status (no improvement) Medication and Management: * Keppra 500 mg PO q12h * Phenobarbital 90 mg IV Q8 * Dr. Rascon consulted, help appreciated Imaging: (03/08) Blood flow study - criteria for brain not established on the current examination Head CT (03/04): chronic microvascular ischemic changes, no acute intracranial hemorrhage EEG (03/05/17): periodic paroxysmal activities lasting about 2-3 seconds with intermittent burst suppression suggestive of status epileptiform activities. Head CT (03/06/17): nonspecific white matter changes Pulm: Respiratory distress secondary to cardiac arrest Medication and Management * Patient intubated * gipson to measure urine output * Duonebs prn Imaging: Chest X-ray (03/16/17): Mild venous congestion, stable cardiomegaly, mild left pleural effusion Cardio: s/p cardiac arrest Medication and management: * Off of pressers * Dr. Tate consulted, help appreciated * Echo (03/04/17): LVEF:42, mild to moderate LV systolic dysfunction. Normal chamber size. Trace MR and TR. Trace pericardial effusion. Pleural effusion. Heme: anemia Medication and management: * Hgb 10.8 - stable * 03/06/17: HgB/Hct: 7/20.6, transfused 2 u PRBCs * Dr. Rubio consulted help appreciated -> monoclonal protein detected Endo: DM II Medication and management: * Regular ISS- increased to high on 03/08 * accucheck q6h * HgA1C: 9.4 Renal: SAUNDRA - table Medication and management: * Lasix d/c on 03/08 * f/u recommendation as per Dr. Charles - monitor lytes * monitor K level and replaced as necessary * BUN/CR 49/2.3 - stable * Phoslo 667mg GT TIDCC MSK: right foot wound secondary to first metatarsal amputation Medication and management: * Wound care - Right foot dressed with CORNELIUS Mueller * Dr. Guzman, podiatry, consulted- help appreciated ID: Medication and management: * MRSA in nose * Urine culture (-) 03/04 * blood culture (-) 03/04 * 03/13: Sputum: pseudomonas aeruginosa * Amikacin 1065mg q48h (renal dosing) - sensitive * Cefepine IV 2 gram IVPB Q12 * Azithromycin 250mg IVPB daily - started 03/11 stopped on 03/15 * Dr. Shore consulted, help appreciated Prophylaxis: DVT: Heparin 5,000 u sc Q12 hours GI: Protonix 40 mg IVP daily glucerna feeds at 35ml/hr, 100 cc free water flushes q6h Code Status: DNR/ DNI <Joe Hwang - Last Filed: 03/26/17 14:21> CCU Objective - Vital Signs / Intake & Output Intake and Output (Last 8hrs): Intake & Output 03/25/17 03/26/17 03/26/17 22:59 06:59 14:59 Intake Total 530 Output Total 0 Balance 530 Intake: Intake, IV Amount 250 Right Forearm 250 Tube Feeding 280 Output: Urine 0 Condom 0 Other: # Bowel Movements 0 - Patient Studies Lab Studies: Microbiology Studies 03/23/17 20:00 Blood Culture - Preliminary Blood NO GROWTH AFTER 48 HOURS 03/23/17 19:30 Blood Culture - Preliminary Blood NO GROWTH AFTER 48 HOURS Lab Studies 03/25/17 03/25/17 Range/Units 21:15 16:56 POC Glucose (mg/dL) 253 H 314 H (65-110) mg/dL Laboratory Results - last 24 hr 03/25/17 03/25/17 16:56 21:15 POC Glucose (mg/dL) 314 H 253 H Assessment/Plan (1) CHF (congestive heart failure) Status: Acute (2) Cardiac arrest Status: Acute (3) Coagulopathy Status: Acute (4) Respiratory failure Status: Acute Attending/Attestation - Attestation I have personally seen and examined this patient.: Yes I have fully participated in the care of the patient.: Yes I have reviewed all pertinent clinical information: Yes Notes (Text): 03/26/17 14:21 During the round discussed with the ICU team. Family agreed for terminal extubation. Extubated. Family at bedside. DNR. Prognosis very poor
[2017-03-19] MEDS ORDERED: Morphine 4 MG/ML VIAL ONE (17:27)
--- NOTE | 2017-03-19 19:23 | CP.PCM.PN ---
Subjective - Date & Time of Evaluation Date of Evaluation: 03/19/17 Time of Evaluation: 19:22 - Subjective Subjective: family request extubated on comfortcare Objective - Vital Signs/Intake and Output Vital Signs (last 24 hours): Temp Pulse Resp BP Pulse Ox 99.5 F 103 H 26 H 123/66 99 03/19/17 08:00 03/19/17 18:00 03/19/17 18:00 03/19/17 18:00 03/19/17 18:00 Intake and Output: 03/19/17 03/20/17 18:59 06:59 Intake Total 800 Output Total 930 Balance -130 - Medications Medications: Current Medications Acetaminophen (Tylenol 650mg/20.3ml Solution Ud) 650 mg PO Q4 PRN PRN Reason: temp >101 Last Admin: 03/18/17 23:56 Dose: 650 mg Albuterol/Ipratropium (Duoneb 3 Mg/0.5 Mg (3 Ml) Ud) 3 ml INH RQ6 [facility] Last Admin: 03/19/17 13:17 Dose: 3 ml Artificial Tears (Lacri-Lube) 0 gm OS Q4H PRN PRN Reason: Other Last Admin: 03/19/17 09:47 Dose: 3.5 gm Calcium Acetate (Phoslo) 667 mg GT TIDCC [facility] Last Admin: 03/19/17 11:56 Dose: 667 mg Heparin Sodium (Porcine) (Heparin) 5,000 units SC Q12 [facility] Last Admin: 03/19/17 09:41 Dose: 5,000 units Cefepime HCl (Maxipime Iv 2 Gm Premix) 2 gm in 100 mls @ 100 mls/hr IVPB Q12H [facility] Last Admin: 03/19/17 05:12 Dose: 100 mls/hr Amikacin Sulfate 1,065 mg/ (Sodium Chloride) 254.26 mls @ 254.26 mls/hr IVPB Q48H [facility] Last Admin: 03/19/17 13:25 Dose: 254.26 mls/hr Dextrose (Dextrose 5% In Water 1000 Ml) 1,000 mls @ 50 mls/hr IV .Q20H [facility] Last Admin: 03/19/17 11:30 Dose: 50 mls/hr Insulin Human Regular (Novolin R) 0 unit SC Q6 TE[facility] PRN Reason: Protocol Last Admin: 03/19/17 11:55 Dose: 6 unit Levetiracetam (Keppra) 500 mg PO Q12 [facility] Last Admin: 03/19/17 10:46 Dose: 500 mg Nystatin (Mycostatin Cream) 0 ea TOP TID TE[facility] Last Admin: 03/19/17 15:00 Dose: 1 applic Pantoprazole Sodium (Protonix Inj) 40 mg IVP DAILY [facility] Last Admin: 03/19/17 09:42 Dose: 40 mg Phenobarbital (Phenobarbital Inj) 90 mg IV Q8 [facility] Last Admin: 03/19/17 16:54 Dose: 90 mg Potassium Chloride (Potassium Chloride Oral Soln) 20 meq GT ONCE [facility] Last Admin: 03/09/17 13:52 Dose: 20 meq - Labs Labs: 03/19/17 06:13 03/19/17 06:13 PT 13.6 SECONDS (9.7-12.2) H 03/10/17 12:24 INR 1.2 03/10/17 12:24 APTT 32 SECONDS (21-34) 03/10/17 12:24 Assessment and Plan (1) CHF (congestive heart failure) Status: Acute (2) Cardiac arrest Status: Acute (3) Coagulopathy Status: Acute (4) Respiratory failure Status: Acute
[2017-03-20] MEDS: (Novolin R) Insulin Human Regular 100 units/ml vial SC SCH ×2 (03:34→05:49)
[2017-03-20] MEDS: Cefepime IV 2 gm in Dextrose 2 GM/100 ML BAG IVPB SCH ×2 (05:50→18:13)
[2017-03-20] MEDS: Albuterol-Ipratrop 3 mg / 0.5 (3 ml) UD INH SCH ×4 (06:18→20:38)
--- NOTE | 2017-03-20 07:49 | CP.CCUPN ---
<Temi Rosales - Last Filed: 03/20/17 11:02> CCU Subjective - Physician Review Subjective (Free Text): Patient seen and examined at bedside. ROS unobtainable due to patient's current clinical status. Patient on comfort care only. Patient was terminally extubated yesterday at about 5:30pm. Patient stable for transfer to med/surg. CCU Objective - Vital Signs / Intake & Output Vital Signs (Last 4 hours): Vital Signs Temp Pulse Resp BP Pulse Ox 03/20/17 07:00 82 17 107/60 100 03/20/17 06:00 87 19 118/67 100 03/20/17 05:00 97 H 23 133/74 99 03/20/17 04:10 94 H 20 99 03/20/17 04:00 99.6 F 95 H 18 119/74 99 Intake and Output (Last 8hrs): Intake & Output 03/19/17 03/20/17 03/20/17 22:59 06:59 14:59 Intake Total 470 400 50 Output Total 400 1200 Balance 70 -800 50 Weight 148 lb 8 oz Intake: Intake, IV Amount 400 400 50 Left Antecubital 400 400 50 Tube Feeding 70 Output: Urine 400 1200 Urethral (Gipson) 400 1200 Other: # Voids Urethral (Gipson) 1 - Physical Exam Head: Positive for: Atraumatic, Normocephalic Mouth: Positive for: Moist Mucous Membranes Respiratory/Chest: Positive for: Rales Cardiovascular: Positive for: Regular Rate and Rhythm, Normal S1, S2 Abdomen: Positive for: Normal Bowel Sounds. 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 Negative for: Alert, Oriented x 3 - Medications Active Medications: Active Medications Generic Name Dose Route Start Last Admin Trade Name Freq PRN Reason Stop Dose Admin Acetaminophen 650 mg 03/05/17 22:55 03/18/17 23:56 Tylenol 650mg/20.3ml Solution Ud PO 650 mg Q4 PRN Administration temp >101 Albuterol/Ipratropium 3 ml 03/10/17 20:00 03/20/17 07:38 Duoneb 3 Mg/0.5 Mg (3 Ml) Ud INH 3 ml RQ6 TE[facility] Administration Artificial Tears 0 gm 03/06/17 10:04 03/19/17 09:47 Lacri-Lube OS 3.5 gm Q4H PRN Administration Other Calcium Acetate 667 mg 03/08/17 10:00 03/19/17 19:43 Phoslo GT Not Given TIDCC TENA Heparin Sodium (Porcine) 5,000 units 03/14/17 22:00 03/19/17 21:13 Heparin SC 5,000 units Q12 TE[facility] Administration Cefepime HCl 2 gm in 100 mls @ 100 mls/hr 03/13/17 18:00 03/20/17 05:50 Maxipime Iv 2 Gm Premix IVPB 100 mls/hr Q12H [facility] Administration Amikacin Sulfate 1,065 mg/ 254.26 mls @ 254.26 mls/hr 03/15/17 13:00 13:25 Sodium Chloride IVPB 254.26 mls/hr Q48H TE[facility] Administration Dextrose 1,000 mls @ 50 mls/hr 03/19/17 11:15 03/19/17 11:30 Dextrose 5% In Water 1000 Ml IV 50 mls/hr .Q20H [facility] Administration Insulin Human Regular 0 unit 03/14/17 00:00 03/20/17 05:49 Novolin R SC Not Given Q6 [facility] Protocol Levetiracetam 500 mg 03/14/17 22:00 03/19/17 21:14 Keppra PO Not Given Q12 TENA Nystatin 0 ea 03/16/17 10:00 03/19/17 19:43 Mycostatin Cream TOP Not Given TID TENA Pantoprazole Sodium 40 mg 03/05/17 10:00 03/19/17 09:42 Protonix Inj IVP 40 mg DAILY TENA Administration Phenobarbital 90 mg 03/10/17 06:00 03/20/17 05:49 Phenobarbital Inj IV 90 mg Q8 [facility] Administration Potassium Chloride 20 meq 03/09/17 13:15 03/09/17 13:52 Potassium Chloride Oral Soln GT 20 meq ONCE TE[facility] Administration - Patient Studies Lab Studies: Lab Studies 03/19/17 03/19/17 03/19/17 Range/Units 17:47 12:16 11:43 POC Glucose (mg/dL) 253 H 253 H (65-110) mg/dL Urine Color Yellow (YELLOW) Urine Clarity Hazy (Clear) Urine pH 5.0 (5.0-8.0) Ur Specific [place] 1.016 (1.003-1.030) Urine Protein 2+ H (NEGATIVE) mg/dL Urine Glucose (UA) Normal (Normal) mg/dL Urine Ketones Negative (NEGATIVE) mg/dL Urine Blood 1+ H (NEGATIVE) Urine Nitrate Negative (NEGATIVE) Urine Bilirubin Negative (NEGATIVE) Urine Urobilinogen Normal (0.2-1.0) mg/dL Ur Leukocyte Esterase Neg (Negative) Mika/uL Urine WBC (Auto) 3 (0-5) /hpf Urine RBC (Auto) 3 (0-3) /hpf Amorphous Sediment Few H (<OCC) /ul Urine Bacteria Rare (<OCC) Urine Osmolality (300-1000) mosm/kg Ur Random Sodium mmol/L 03/19/17 Range/Units 11:07 POC Glucose (mg/dL) (65-110) mg/dL Urine Color (YELLOW) Urine Clarity (Clear) Urine pH (5.0-8.0) Ur Specific [place] (1.003-1.030) Urine Protein (NEGATIVE) mg/dL Urine Glucose (UA) (Normal) mg/dL Urine Ketones (NEGATIVE) mg/dL Urine Blood (NEGATIVE) Urine Nitrate (NEGATIVE) Urine Bilirubin (NEGATIVE) Urine Urobilinogen (0.2-1.0) mg/dL Ur Leukocyte Esterase (Negative) Mika/uL Urine WBC (Auto) (0-5) /hpf Urine RBC (Auto) (0-3) /hpf Amorphous Sediment (<OCC) /ul Urine Bacteria (<OCC) Urine Osmolality 409 (300-1000) mosm/kg Ur Random Sodium 42 mmol/L Laboratory Results - last 24 hr 03/19/17 03/19/17 03/19/17 11:07 11:43 12:16 POC Glucose (mg/dL) 253 H Urine Color Yellow Urine Clarity Hazy Urine pH 5.0 Ur Specific [place] 1.016 Urine Protein 2+ H Urine Glucose (UA) Normal Urine Ketones Negative Urine Blood 1+ H Urine Nitrate Negative Urine Bilirubin Negative Urine Urobilinogen Normal Ur Leukocyte Esterase Neg Urine WBC (Auto) 3 Urine RBC (Auto) 3 Amorphous Sediment Few H Urine Bacteria Rare Urine Osmolality 409 Ur Random Sodium 42 03/19/17 17:47 POC Glucose (mg/dL) 253 H Urine Color Urine Clarity Urine pH Ur Specific [place] Urine Protein Urine Glucose (UA) Urine Ketones Urine Blood Urine Nitrate Urine Bilirubin Urine Urobilinogen Ur Leukocyte Esterase Urine WBC (Auto) Urine RBC (Auto) Amorphous Sediment Urine Bacteria Urine Osmolality Ur Random Sodium Fingerstick Blood Sugar Results: 2,314 Review of Systems - Review of Systems Systems not reviewed;Unavailable: Acuity of Condition Assessment/Plan - Assessment and Plan (Free Text) Assessment: 52 y/o M with pmhx of HTN, DM II, kidney disease, who was brought to the ED after he collapsed in ED at home and was found in asystole. Patient given 3 doses of epi and CPR for 15 minutes then ROSC. Patient intubated in the field. Patient went into cardiac arrest twice more in the ICU. Patient terminally extubated on 03/19/17. Patient to receive comfort care. Today's Plan: Patient to be transferred to med/surg floor. Patient to recieve comfort care and continue medications. Patient will need placement to either fdc or LTAC. Neuro: Intubated, altered mental status (no improvement) Medication and Management: * Keppra 500 mg PO q12h * Phenobarbital 90 mg IV Q8 * Dr. Rascon consulted, help appreciated Imaging: (03/08) Blood flow study - criteria for brain not established on the current examination Head CT (03/04): chronic microvascular ischemic changes, no acute intracranial hemorrhage EEG (03/05/17): periodic paroxysmal activities lasting about 2-3 seconds with intermittent burst suppression suggestive of status epileptiform activities. Head CT (03/06/17): nonspecific white matter changes Pulm: Respiratory distress secondary to cardiac arrest Medication and Management * Patient terminally extubated 03/20 * Nasal cannula * gpison to measure urine output * Duonebs prn Cardio: s/p cardiac arrest Medication and management: * Off of pressers * Dr. Tate consulted, help appreciated * Echo (03/04/17): LVEF:42, mild to moderate LV systolic dysfunction. Normal chamber size. Trace MR and TR. Trace pericardial effusion. Pleural effusion. Heme: anemia Medication and management: * Hgb 9.2 * 03/06/17: HgB/Hct: 7/20.6, transfused 2 u PRBCs * Dr. Rubio consulted help appreciated -> monoclonal protein detected Endo: DM II Medication and management: * Regular ISS- increased to high on 03/08 * accucheck q6h * HgA1C: 9.4 Renal: SAUNDRA - table Medication and management: * Lasix d/c on 03/08 * f/u recommendation as per Dr. Charles - monitor lytes * monitor K level and replaced as necessary * BUN/CR 49/2.3 - stable * Phoslo 667mg GT TIDCC [facility]: right foot wound secondary to first metatarsal amputation Medication and management: * Wound care - Right foot dressed with SantporfirioDSD * Dr. Guzman, podiatry, consulted- help appreciated ID: Medication and management: * MRSA in nose * Urine culture (-) 03/04 * blood culture (-) 03/04 * 03/13: Sputum: pseudomonas aeruginosa * Amikacin 1065mg q48h (renal dosing) - sensitive * Cefepine IV 2 gram IVPB Q12 * Azithromycin 250mg IVPB daily - started 03/11 stopped on 03/15 * Dr. Shore consulted, help appreciated Prophylaxis: DVT: Heparin 5,000 u sc Q12 hours GI: Protonix 40 mg IVP daily glucerna feeds 100 cc free water flushes q6h Code Status: DNR/ DNI <José Miguel Lugo S - Last Filed: 03/20/17 18:54> CCU Objective - Vital Signs / Intake & Output Vital Signs (Last 4 hours): Vital Signs Temp Pulse Resp BP Pulse Ox 03/20/17 16:00 99.3 F 90 18 109/65 100 Intake and Output (Last 8hrs): Intake & Output 03/20/17 03/20/17 03/20/17 06:59 14:59 22:59 Intake Total 400 400 300 Output Total 1200 1200 Balance -800 400 -900 Weight 148 lb 8 oz Intake: Intake, IV Amount 400 400 200 Left Antecubital 400 400 200 Tube Feeding 100 Output: Urine 1200 1200 Urethral (Gipson) 1200 1200 Other: # Voids Urethral (Gipson) 1 - Medications Active Medications: Active Medications Generic Name Dose Route Start Last Admin Trade Name Freq PRN Reason Stop Dose Admin Acetaminophen 650 mg 03/05/17 22:55 03/18/17 23:56 Tylenol 650mg/20.3ml Solution Ud PO 650 mg Q4 PRN Administration temp >101 Albuterol/Ipratropium 3 ml 03/10/17 20:00 03/20/17 13:18 Duoneb 3 Mg/0.5 Mg (3 Ml) Ud INH Not Given RQ6 TENA Artificial Tears 0 gm 03/06/17 10:04 03/19/17 09:47 Lacri-Lube OS 3.5 gm Q4H PRN Administration Other Calcium Acetate 667 mg 03/08/17 10:00 03/20/17 16:41 Phoslo GT 667 mg TIDCC TE[facility] Administration Heparin Sodium (Porcine) 5,000 units 03/20/17 11:15 03/20/17 12:15 Heparin SC 5,000 units Q12H TE[facility] Administration Cefepime HCl 2 gm in 100 mls @ 100 mls/hr 03/13/17 18:00 03/20/17 18:13 Maxipime Iv 2 Gm Premix IVPB 100 mls/hr Q12H [facility] Administration Dextrose 1,000 mls @ 50 mls/hr 03/19/17 11:15 03/20/17 09:33 Dextrose 5% In Water 1000 Ml IV Not Given .Q20H TENA Levetiracetam 500 mg 03/14/17 22:00 03/20/17 09:33 Keppra PO Not Given Q12 TENA Nystatin 0 ea 03/16/17 10:00 03/20/17 18:12 Mycostatin Cream TOP 1 applic TID TENA Administration Pantoprazole Sodium 40 mg 03/20/17 11:15 03/20/17 12:00 Protonix Inj IVP 40 mg DAILY TENA Administration Phenobarbital 90 mg 03/10/17 06:00 03/20/17 16:43 Phenobarbital Inj IV 90 mg Q8 TE[facility] Administration Potassium Chloride 20 meq 03/09/17 13:15 03/09/17 13:52 Potassium Chloride Oral Soln GT 20 meq ONCE TENA Administration Attending/Attestation - Attestation I have personally seen and examined this patient.: Yes I have fully participated in the care of the patient.: Yes I have reviewed all pertinent clinical information: Yes Notes (Text): 03/20/17 18:53 Patient seen and examined in the intensive care unit. Case discussed with house staff in the morning rounds. Status post terminal extubation Start feeding Transfer to floor
[2017-03-20] MEDS: levETIRAcetam 100 mg/ml (5ml) Oral Syringe PO SCH ×2 (09:33→21:35)
[2017-03-20] MEDS: Nystatin 100,000 Units/gm Cream(15 gm) TOP SCH ×3 (10:00→18:12)
--- NOTE | 2017-03-20 12:41 | CP.PCM.PN ---
Subjective - Date & Time of Evaluation Date of Evaluation: 03/20/17 Time of Evaluation: 07:00 - Subjective Subjective: terminally extubated poor prognosis Objective - Vital Signs/Intake and Output Vital Signs (last 24 hours): Temp Pulse Resp BP Pulse Ox 98.4 F 89 18 113/63 100 03/20/17 08:00 03/20/17 08:00 03/20/17 08:00 03/20/17 08:00 03/20/17 08:00 Intake and Output: 03/20/17 03/20/17 06:59 18:59 Intake Total 600 200 Output Total 1280 Balance -680 200 - Medications Medications: Current Medications Acetaminophen (Tylenol 650mg/20.3ml Solution Ud) 650 mg PO Q4 PRN PRN Reason: temp >101 Last Admin: 03/18/17 23:56 Dose: 650 mg Albuterol/Ipratropium (Duoneb 3 Mg/0.5 Mg (3 Ml) Ud) 3 ml INH RQ6 [facility] Last Admin: 03/20/17 07:38 Dose: 3 ml Artificial Tears (Lacri-Lube) 0 gm OS Q4H PRN PRN Reason: Other Last Admin: 03/19/17 09:47 Dose: 3.5 gm Calcium Acetate (Phoslo) 667 mg GT TIDCC [facility] Last Admin: 03/20/17 09:00 Dose: Not Given Heparin Sodium (Porcine) (Heparin) 5,000 units SC Q12H [facility] Cefepime HCl (Maxipime Iv 2 Gm Premix) 2 gm in 100 mls @ 100 mls/hr IVPB Q12H [facility] Last Admin: 03/20/17 05:50 Dose: 100 mls/hr Amikacin Sulfate 1,065 mg/ (Sodium Chloride) 254.26 mls @ 254.26 mls/hr IVPB Q48H [facility] Last Admin: 03/19/17 13:25 Dose: 254.26 mls/hr Dextrose (Dextrose 5% In Water 1000 Ml) 1,000 mls @ 50 mls/hr IV .Q20H [facility] Last Admin: 03/20/17 09:33 Dose: Not Given Insulin Human Regular (Novolin R) 0 unit SC Q6 [facility] PRN Reason: Protocol Last Admin: 03/20/17 05:49 Dose: Not Given Levetiracetam (Keppra) 500 mg PO Q12 [facility] Last Admin: 03/20/17 09:33 Dose: Not Given Nystatin (Mycostatin Cream) 0 ea TOP TID [facility] Last Admin: 03/19/17 19:43 Dose: Not Given Pantoprazole Sodium (Protonix Inj) 40 mg IVP DAILY [facility] Phenobarbital (Phenobarbital Inj) 90 mg IV Q8 [facility] Last Admin: 03/20/17 05:49 Dose: 90 mg Potassium Chloride (Potassium Chloride Oral Soln) 20 meq GT ONCE [facility] Last Admin: 03/09/17 13:52 Dose: 20 meq - Labs Labs: 03/19/17 06:13 03/19/17 06:13 PT 13.6 SECONDS (9.7-12.2) H 03/10/17 12:24 INR 1.2 03/10/17 12:24 APTT 32 SECONDS (21-34) 03/10/17 12:24 Assessment and Plan (1) Cardiac arrest Status: Acute (2) Open wound of right foot with complication Status: Acute (3) Respiratory failure Status: Acute (4) Anoxic encephalopathy Status: Acute (5) Anoxic encephalopathy Status: Acute
--- NOTE | 2017-03-20 19:05 | CP.PCM.PN ---
Subjective - Date & Time of Evaluation Date of Evaluation: 03/19/17 Time of Evaluation: 18:10 - Subjective Subjective: Vented Objective - Vital Signs/Intake and Output Vital Signs (last 24 hours): Temp Pulse Resp BP Pulse Ox 99.3 F 90 18 109/65 100 03/20/17 16:00 03/20/17 16:00 03/20/17 16:00 03/20/17 16:00 03/20/17 16:00 Intake and Output: 03/20/17 03/21/17 18:59 06:59 Intake Total 700 Output Total 1200 Balance -500 - Medications Medications: Current Medications Acetaminophen (Tylenol 650mg/20.3ml Solution Ud) 650 mg PO Q4 PRN PRN Reason: temp >101 Last Admin: 03/18/17 23:56 Dose: 650 mg Albuterol/Ipratropium (Duoneb 3 Mg/0.5 Mg (3 Ml) Ud) 3 ml INH RQ6 [facility] Last Admin: 03/20/17 13:18 Dose: Not Given Artificial Tears (Lacri-Lube) 0 gm OS Q4H PRN PRN Reason: Other Last Admin: 03/19/17 09:47 Dose: 3.5 gm Calcium Acetate (Phoslo) 667 mg GT TIDCC [facility] Last Admin: 03/20/17 16:41 Dose: 667 mg Heparin Sodium (Porcine) (Heparin) 5,000 units SC Q12H [facility] Last Admin: 03/20/17 12:15 Dose: 5,000 units Cefepime HCl (Maxipime Iv 2 Gm Premix) 2 gm in 100 mls @ 100 mls/hr IVPB Q12H [facility] Last Admin: 03/20/17 18:13 Dose: 100 mls/hr Dextrose (Dextrose 5% In Water 1000 Ml) 1,000 mls @ 50 mls/hr IV .Q20H [facility] Last Admin: 03/20/17 09:33 Dose: Not Given Levetiracetam (Keppra) 500 mg PO Q12 [facility] Last Admin: 03/20/17 09:33 Dose: Not Given Nystatin (Mycostatin Cream) 0 ea TOP TID [facility] Last Admin: 03/20/17 18:12 Dose: 1 applic Pantoprazole Sodium (Protonix Inj) 40 mg IVP DAILY [facility] Last Admin: 03/20/17 12:00 Dose: 40 mg Phenobarbital (Phenobarbital Inj) 90 mg IV Q8 [facility] Last Admin: 03/20/17 16:43 Dose: 90 mg Potassium Chloride (Potassium Chloride Oral Soln) 20 meq GT ONCE TE[facility] Last Admin: 03/09/17 13:52 Dose: 20 meq - Labs Labs: 03/19/17 06:13 03/19/17 06:13 PT 13.6 SECONDS (9.7-12.2) H 03/10/17 12:24 INR 1.2 03/10/17 12:24 APTT 32 SECONDS (21-34) 03/10/17 12:24 - Head Exam Head Exam: ATRAUMATIC - Eye Exam Eye Exam: Normal appearance - ENT Exam ENT Exam: Mucous Membranes Dry - Respiratory Exam Respiratory Exam: Decreased Breath Sounds - Cardiovascular Exam Cardiovascular Exam: +S1, +S2 - GI/Abdominal Exam GI & Abdominal Exam: Normal Bowel Sounds Assessment and Plan (1) Anemia Assessment & Plan: anemia of chronic disease monoclonal protein detected Status: Acute (2) Coagulopathy Assessment & Plan: nutritional Status: Acute
--- NOTE | 2017-03-20 19:07 | CP.PCM.PN ---
Subjective - Date & Time of Evaluation Date of Evaluation: 03/20/17 Time of Evaluation: 12:00 - Subjective Subjective: Terminal extubation Objective - Vital Signs/Intake and Output Vital Signs (last 24 hours): Temp Pulse Resp BP Pulse Ox 99.3 F 90 18 109/65 100 03/20/17 16:00 03/20/17 16:00 03/20/17 16:00 03/20/17 16:00 03/20/17 16:00 Intake and Output: 03/20/17 03/21/17 18:59 06:59 Intake Total 700 50 Output Total 1200 Balance -500 50 - Medications Medications: Current Medications Acetaminophen (Tylenol 650mg/20.3ml Solution Ud) 650 mg PO Q4 PRN PRN Reason: temp >101 Last Admin: 03/18/17 23:56 Dose: 650 mg Albuterol/Ipratropium (Duoneb 3 Mg/0.5 Mg (3 Ml) Ud) 3 ml INH RQ6 [facility] Last Admin: 03/20/17 13:18 Dose: Not Given Artificial Tears (Lacri-Lube) 0 gm OS Q4H PRN PRN Reason: Other Last Admin: 03/19/17 09:47 Dose: 3.5 gm Calcium Acetate (Phoslo) 667 mg GT TIDCC [facility] Last Admin: 03/20/17 16:41 Dose: 667 mg Heparin Sodium (Porcine) (Heparin) 5,000 units SC Q12H [facility] Last Admin: 03/20/17 12:15 Dose: 5,000 units Cefepime HCl (Maxipime Iv 2 Gm Premix) 2 gm in 100 mls @ 100 mls/hr IVPB Q12H [facility] Last Admin: 03/20/17 18:13 Dose: 100 mls/hr Dextrose (Dextrose 5% In Water 1000 Ml) 1,000 mls @ 50 mls/hr IV .Q20H [facility] Last Admin: 03/20/17 09:33 Dose: Not Given Levetiracetam (Keppra) 500 mg PO Q12 [facility] Last Admin: 03/20/17 09:33 Dose: Not Given Nystatin (Mycostatin Cream) 0 ea TOP TID [facility] Last Admin: 03/20/17 18:12 Dose: 1 applic Pantoprazole Sodium (Protonix Inj) 40 mg IVP DAILY [facility] Last Admin: 03/20/17 12:00 Dose: 40 mg Phenobarbital (Phenobarbital Inj) 90 mg IV Q8 [facility] Last Admin: 03/20/17 16:43 Dose: 90 mg Potassium Chloride (Potassium Chloride Oral Soln) 20 meq GT ONCE [facility] Last Admin: 03/09/17 13:52 Dose: 20 meq - Labs Labs: 03/19/17 06:13 03/19/17 06:13 PT 13.6 SECONDS (9.7-12.2) H 03/10/17 12:24 INR 1.2 03/10/17 12:24 APTT 32 SECONDS (21-34) 03/10/17 12:24 - Head Exam Head Exam: ATRAUMATIC - Eye Exam Eye Exam: Normal appearance - ENT Exam ENT Exam: Mucous Membranes Dry - Respiratory Exam Respiratory Exam: Decreased Breath Sounds - Cardiovascular Exam Cardiovascular Exam: +S1, +S2 - GI/Abdominal Exam GI & Abdominal Exam: Normal Bowel Sounds Assessment and Plan (1) Anemia Assessment & Plan: anemia of chronic disease monoclonal protein detected Status: Acute (2) Coagulopathy Assessment & Plan: nutritional Status: Acute
--- NOTE | 2017-03-20 19:57 | CP.PCM.PN ---
Subjective - Date & Time of Evaluation Date of Evaluation: 03/20/17 Time of Evaluation: 11:40 - Subjective Subjective: clinically same Objective - Vital Signs/Intake and Output Vital Signs (last 24 hours): Temp Pulse Resp BP Pulse Ox 99.3 F 90 18 109/65 100 03/20/17 16:00 03/20/17 16:00 03/20/17 16:00 03/20/17 16:00 03/20/17 16:00 Intake and Output: 03/20/17 03/21/17 18:59 06:59 Intake Total 700 50 Output Total 1200 Balance -500 50 - Medications Medications: Current Medications Acetaminophen (Tylenol 650mg/20.3ml Solution Ud) 650 mg PO Q4 PRN PRN Reason: temp >101 Last Admin: 03/18/17 23:56 Dose: 650 mg Albuterol/Ipratropium (Duoneb 3 Mg/0.5 Mg (3 Ml) Ud) 3 ml INH RQ6 [facility] Last Admin: 03/20/17 13:18 Dose: Not Given Artificial Tears (Lacri-Lube) 0 gm OS Q4H PRN PRN Reason: Other Last Admin: 03/19/17 09:47 Dose: 3.5 gm Calcium Acetate (Phoslo) 667 mg GT TIDCC [facility] Last Admin: 03/20/17 16:41 Dose: 667 mg Heparin Sodium (Porcine) (Heparin) 5,000 units SC Q12H [facility] Last Admin: 03/20/17 12:15 Dose: 5,000 units Cefepime HCl (Maxipime Iv 2 Gm Premix) 2 gm in 100 mls @ 100 mls/hr IVPB Q12H [facility] Last Admin: 03/20/17 18:13 Dose: 100 mls/hr Dextrose (Dextrose 5% In Water 1000 Ml) 1,000 mls @ 50 mls/hr IV .Q20H [facility] Last Admin: 03/20/17 09:33 Dose: Not Given Levetiracetam (Keppra) 500 mg PO Q12 [facility] Last Admin: 03/20/17 09:33 Dose: Not Given Nystatin (Mycostatin Cream) 0 ea TOP TID [facility] Last Admin: 03/20/17 18:12 Dose: 1 applic Pantoprazole Sodium (Protonix Inj) 40 mg IVP DAILY [facility] Last Admin: 03/20/17 12:00 Dose: 40 mg Phenobarbital (Phenobarbital Inj) 90 mg IV Q8 [facility] Last Admin: 03/20/17 16:43 Dose: 90 mg Potassium Chloride (Potassium Chloride Oral Soln) 20 meq GT ONCE [facility] Last Admin: 03/09/17 13:52 Dose: 20 meq - Labs Labs: 03/19/17 06:13 03/19/17 06:13 PT 13.6 SECONDS (9.7-12.2) H 03/10/17 12:24 INR 1.2 03/10/17 12:24 APTT 32 SECONDS (21-34) 03/10/17 12:24 - Constitutional Appears: Well - Head Exam Head Exam: ATRAUMATIC, NORMAL INSPECTION, NORMOCEPHALIC - Eye Exam Eye Exam: EOMI, Normal appearance, PERRL Pupil Exam: NORMAL ACCOMODATION, PERRL - ENT Exam ENT Exam: Mucous Membranes Moist, Normal Exam - Neck Exam Neck Exam: Full ROM, Normal Inspection. absent: Lymphadenopathy - Respiratory Exam Respiratory Exam: Decreased Breath Sounds - Cardiovascular Exam Cardiovascular Exam: REGULAR RHYTHM, +S1, +S2 - GI/Abdominal Exam GI & Abdominal Exam: Soft, Diminished Bowel Sounds - Rectal Exam Rectal Exam: Deferred Assessment and Plan (1) Anemia Status: Acute (2) CHF (congestive heart failure) Status: Acute (3) Cardiac arrest Status: Acute (4) Coagulopathy Status: Acute (5) Open wound of right foot with complication Status: Acute (6) Respiratory failure Status: Acute (7) SAUNDRA (acute kidney injury) Status: Resolved - Assessment and Plan (Free Text) Plan: Patient examined. Patient unresponsive on ventilator. Patient's ability used once to extubate the patient. What is explained to them. Terminally extubated. Continue cefepime. Continue nystatin. Continue supportive care.
[2017-03-21] MEDS: Albuterol-Ipratrop 3 mg / 0.5 (3 ml) UD INH SCH ×4 (01:05→19:44)
[2017-03-21] MEDS: Cefepime IV 2 gm in Dextrose 2 GM/100 ML BAG IVPB SCH ×2 (06:00→17:22)
[2017-03-21] MEDS: levETIRAcetam 100 mg/ml (5ml) Oral Syringe PO SCH ×2 (10:56→22:45)
[2017-03-21] MEDS: Nystatin 100,000 Units/gm Cream(15 gm) TOP SCH ×3 (10:58→17:23)
--- NOTE | 2017-03-21 12:54 | PN ---
DATE: LOCATION: ICU 17. SUBJECTIVE: This is a 52-year-old male in a status of DNR and DNI, seen and examined in rounds, still with NG tube in place with Ventimask, was extubated. The patient poorly respond to any verbal stimuli and reported decubitus ulceration is seen. The entire chart is reviewed including, but not limited to the most recent lab and the radiology study results, current and the previous medication list, current and the previous medical events, It has to mentioned that no blood testing recently, today and no significant clinical changes in general. Case discussed also with some family members at the bedside. IMPRESSION: 1. Anoxic encephalopathy. 2. Malnutrition with hypoalbuminemia. 3. Dysphagia. 4. Respiratory insufficiency. 5. Status post cardiac arrest. SUGGESTIONS: 1. Continue supportive treatment. 2. Peripheral hyperalimentation. 3. No need for aggressive GI procedure at this point. However, the family is not agreeable for any aggressive GI procedure so far. Yola Sim MD cc: Yola Sim MD
--- NOTE | 2017-03-21 16:34 | CP.PCM.PN ---
Subjective - Date & Time of Evaluation Date of Evaluation: 03/21/17 Time of Evaluation: 09:00 - Subjective Subjective: events noted extubated rx in progrdess poor prognosis Objective - Vital Signs/Intake and Output Vital Signs (last 24 hours): Temp Pulse Resp BP Pulse Ox 97.7 F 89 19 132/74 100 03/21/17 12:00 03/21/17 13:00 03/21/17 13:00 03/21/17 13:00 03/21/17 13:00 Intake and Output: 03/21/17 03/21/17 06:59 18:59 Intake Total 300 500 Output Total 485 Balance -185 500 - Medications Medications: Current Medications Albuterol/Ipratropium (Duoneb 3 Mg/0.5 Mg (3 Ml) Ud) 3 ml INH RQ6 [facility] Last Admin: 03/21/17 13:08 Dose: 3 ml Calcium Acetate (Phoslo) 667 mg GT TIDCC [facility] Last Admin: 03/21/17 12:00 Dose: 667 mg Heparin Sodium (Porcine) (Heparin) 5,000 units SC Q12H [facility] Last Admin: 03/21/17 10:56 Dose: 5,000 units Cefepime HCl (Maxipime Iv 2 Gm Premix) 2 gm in 100 mls @ 100 mls/hr IVPB Q12H [facility] Last Admin: 03/21/17 06:00 Dose: 100 mls/hr Dextrose (Dextrose 5% In Water 1000 Ml) 1,000 mls @ 50 mls/hr IV .Q20H [facility] Last Admin: 03/20/17 09:33 Dose: Not Given Levetiracetam (Keppra) 500 mg PO Q12 [facility] Last Admin: 03/21/17 10:56 Dose: 500 mg Nystatin (Mycostatin Cream) 0 ea TOP TID [facility] Last Admin: 03/21/17 14:00 Dose: 1 applic Pantoprazole Sodium (Protonix Inj) 40 mg IVP DAILY [facility] Last Admin: 03/21/17 10:56 Dose: 40 mg Phenobarbital (Phenobarbital Inj) 90 mg IV Q8 [facility] Last Admin: 03/21/17 15:00 Dose: 90 mg Potassium Chloride (Potassium Chloride Oral Soln) 20 meq GT ONCE [facility] Last Admin: 03/09/17 13:52 Dose: 20 meq - Labs Labs: 03/19/17 06:13 03/19/17 06:13 PT 13.6 SECONDS (9.7-12.2) H 03/10/17 12:24 INR 1.2 03/10/17 12:24 APTT 32 SECONDS (21-34) 03/10/17 12:24 - Constitutional Appears: Non-toxic, Cachectic, Chronically Ill - Head Exam Head Exam: NORMOCEPHALIC - Eye Exam Eye Exam: PERRL - ENT Exam ENT Exam: Mucous Membranes Dry - Neck Exam Neck Exam: absent: Lymphadenopathy - Respiratory Exam Respiratory Exam: Decreased Breath Sounds - Cardiovascular Exam Cardiovascular Exam: REGULAR RHYTHM - GI/Abdominal Exam GI & Abdominal Exam: Distended, Soft - Rectal Exam Rectal Exam: Deferred - Exam Exam: NORMAL INSPECTION Assessment and Plan (1) Cardiac arrest Status: Acute (2) Open wound of right foot with complication Status: Acute (3) Respiratory failure Status: Acute (4) Anoxic encephalopathy Status: Acute (5) Anoxic encephalopathy Status: Acute
--- NOTE | 2017-03-21 20:13 | CP.PCM.PN ---
Subjective - Date & Time of Evaluation Date of Evaluation: 03/21/17 Time of Evaluation: 12:00 - Subjective Subjective: clinically same Objective - Vital Signs/Intake and Output Vital Signs (last 24 hours): Temp Pulse Resp BP Pulse Ox 97.7 F 101 H 24 113/61 100 03/21/17 12:00 03/21/17 19:34 03/21/17 19:34 03/21/17 19:34 03/21/17 19:34 Intake and Output: 03/21/17 03/22/17 18:59 06:59 Intake Total 600 Output Total 1000 Balance -400 - Medications Medications: Current Medications Albuterol/Ipratropium (Duoneb 3 Mg/0.5 Mg (3 Ml) Ud) 3 ml INH RQ6 [facility] Last Admin: 03/21/17 19:44 Dose: 3 ml Calcium Acetate (Phoslo) 667 mg GT TIDCC [facility] Last Admin: 03/21/17 17:24 Dose: 667 mg Heparin Sodium (Porcine) (Heparin) 5,000 units SC Q12H [facility] Last Admin: 03/21/17 10:56 Dose: 5,000 units Cefepime HCl (Maxipime Iv 2 Gm Premix) 2 gm in 100 mls @ 100 mls/hr IVPB Q12H [facility] Last Admin: 03/21/17 17:22 Dose: 100 mls/hr Levetiracetam (Keppra) 500 mg PO Q12 [facility] Last Admin: 03/21/17 10:56 Dose: 500 mg Nystatin (Mycostatin Cream) 0 ea TOP TID [facility] Last Admin: 03/21/17 17:23 Dose: 1 applic Pantoprazole Sodium (Protonix Inj) 40 mg IVP DAILY [facility] Last Admin: 03/21/17 10:56 Dose: 40 mg Phenobarbital (Phenobarbital Inj) 90 mg IV Q8 [facility] Last Admin: 03/21/17 15:00 Dose: 90 mg Potassium Chloride (Potassium Chloride Oral Soln) 20 meq GT ONCE [facility] Last Admin: 03/09/17 13:52 Dose: 20 meq - Labs Labs: 03/19/17 06:13 03/19/17 06:13 PT 13.6 SECONDS (9.7-12.2) H 03/10/17 12:24 INR 1.2 03/10/17 12:24 APTT 32 SECONDS (21-34) 03/10/17 12:24 - Constitutional Appears: Well - Head Exam Head Exam: ATRAUMATIC, NORMAL INSPECTION, NORMOCEPHALIC - Eye Exam Eye Exam: EOMI, Normal appearance, PERRL Pupil Exam: NORMAL ACCOMODATION, PERRL - ENT Exam ENT Exam: Mucous Membranes Moist, Normal Exam - Neck Exam Neck Exam: Full ROM, Normal Inspection. absent: Lymphadenopathy - Respiratory Exam Respiratory Exam: Decreased Breath Sounds - Cardiovascular Exam Cardiovascular Exam: REGULAR RHYTHM, +S1, +S2 - GI/Abdominal Exam GI & Abdominal Exam: Soft, Diminished Bowel Sounds - Rectal Exam Rectal Exam: Deferred Assessment and Plan (1) Anemia Status: Acute (2) CHF (congestive heart failure) Status: Acute (3) Cardiac arrest Status: Acute (4) Coagulopathy Status: Acute (5) Open wound of right foot with complication Status: Acute (6) Respiratory failure Status: Acute (7) SAUNDRA (acute kidney injury) Status: Resolved - Assessment and Plan (Free Text) Plan: Patient terminally extubated. Prognosis poor. Continue cefepime. Continue supportive care.
[2017-03-22] MEDS: Albuterol-Ipratrop 3 mg / 0.5 (3 ml) UD INH SCH ×4 (01:43→20:42)
[2017-03-22] MEDS: Cefepime IV 2 gm in Dextrose 2 GM/100 ML BAG IVPB SCH ×2 (06:12→17:04)
[2017-03-22] MEDS: levETIRAcetam 100 mg/ml (5ml) Oral Syringe PO SCH ×2 (09:27→21:03)
[2017-03-22] MEDS: Nystatin 100,000 Units/gm Cream(15 gm) TOP SCH ×3 (09:29→17:05)
--- NOTE | 2017-03-22 14:58 | CP.PCM.PN ---
Subjective - Date & Time of Evaluation Date of Evaluation: 03/22/17 Time of Evaluation: 07:40 - Subjective Subjective: clinically same Objective - Vital Signs/Intake and Output Vital Signs (last 24 hours): Temp Pulse Resp BP Pulse Ox 98.1 F 109 H 18 122/75 92 L 03/22/17 10:26 03/22/17 10:26 03/22/17 10:26 03/22/17 10:26 03/22/17 10:26 Intake and Output: 03/22/17 03/22/17 06:59 18:59 Intake Total 385 35 Output Total 905 50 Balance -520 -15 - Medications Medications: Current Medications Albuterol/Ipratropium (Duoneb 3 Mg/0.5 Mg (3 Ml) Ud) 3 ml INH RQ6 [facility] Last Admin: 03/22/17 13:54 Dose: 3 ml Calcium Acetate (Phoslo) 667 mg GT TIDCC [facility] Last Admin: 03/22/17 14:02 Dose: 667 mg Heparin Sodium (Porcine) (Heparin) 5,000 units SC Q12H [facility] Last Admin: 03/22/17 14:02 Dose: 5,000 units Cefepime HCl (Maxipime Iv 2 Gm Premix) 2 gm in 100 mls @ 100 mls/hr IVPB Q12H [facility] Last Admin: 03/22/17 06:12 Dose: 100 mls/hr Levetiracetam (Keppra) 500 mg PO Q12 [facility] Last Admin: 03/22/17 09:27 Dose: 500 mg Nystatin (Mycostatin Cream) 0 ea TOP TID [facility] Last Admin: 03/22/17 14:04 Dose: 1 applic Pantoprazole Sodium (Protonix Inj) 40 mg IVP DAILY [facility] Last Admin: 03/22/17 09:27 Dose: 40 mg Phenobarbital (Phenobarbital Inj) 90 mg IV Q8 [facility] Last Admin: 03/22/17 06:14 Dose: 90 mg Potassium Chloride (Potassium Chloride Oral Soln) 20 meq GT ONCE [facility] Last Admin: 03/09/17 13:52 Dose: 20 meq - Labs Labs: 03/19/17 06:13 03/19/17 06:13 PT 13.6 SECONDS (9.7-12.2) H 03/10/17 12:24 INR 1.2 03/10/17 12:24 APTT 32 SECONDS (21-34) 03/10/17 12:24 - Constitutional Appears: Well - Head Exam Head Exam: ATRAUMATIC, NORMAL INSPECTION, NORMOCEPHALIC - Eye Exam Eye Exam: EOMI, Normal appearance, PERRL Pupil Exam: NORMAL ACCOMODATION, PERRL - ENT Exam ENT Exam: Mucous Membranes Moist, Normal Exam - Neck Exam Neck Exam: Full ROM, Normal Inspection. absent: Lymphadenopathy - Respiratory Exam Respiratory Exam: Decreased Breath Sounds - Cardiovascular Exam Cardiovascular Exam: REGULAR RHYTHM, +S1, +S2 - GI/Abdominal Exam GI & Abdominal Exam: Soft, Diminished Bowel Sounds - Rectal Exam Rectal Exam: Deferred Assessment and Plan (1) Anemia Status: Acute (2) CHF (congestive heart failure) Status: Acute (3) Cardiac arrest Status: Acute (4) Coagulopathy Status: Acute (5) Open wound of right foot with complication Status: Acute (6) Respiratory failure Status: Acute (7) SAUNDRA (acute kidney injury) Status: Resolved - Assessment and Plan (Free Text) Plan: Patient examined. Terminally extubated. Prognosis poor. Continue cefepime and insulin. Continue supportive care.
[2017-03-23] MEDS: Albuterol-Ipratrop 3 mg / 0.5 (3 ml) UD INH SCH ×4 (01:38→20:50)
[2017-03-23] MEDS: Cefepime IV 2 gm in Dextrose 2 GM/100 ML BAG IVPB SCH ×2 (05:05→17:07)
--- NOTE | 2017-03-23 07:28 | PN ---
DATE: 03/22/2017 LOCATION: 657. SUBJECTIVE: This is a 52-year-old male, seen early in rounds without significant clinical changes, out of the Intensive Care Unit. He had been on Ventimask, NG tube is in place, and the patient is in the state of DNR and DNI. No reported hematemesis. The entire chart is reviewed including, but not limited to the most recent lab and radiology study results, current and the previous medication list, current and previous medical events. Most recent lab results showed blood glucose level of 284 as per yesterday. PHYSICAL EXAMINATION GENERAL: A 52-year-old male. VITAL SIGNS: Afebrile with pulse of 108, respiratory rate of 20 to 24, and blood pressure 128/70. HEENT: Showed pale, dry oral mucous membrane. Nonicteric sclerae. LUNGS: Few scattered crepitation, decreased air entry at bases. HEART: Positive S1 and S2. ABDOMEN: Soft. Bowel sounds are present with mild tenderness. No mass or organomegaly. No rebound, tenderness, or guarding. EXTREMITIES: Without significant clubbing, cyanosis, or edema. NEUROLOGIC: No reported new neurological deficits, sensory or motor. IMPRESSION: 1. Anoxic encephalopathy. 2. Respiratory failure. 3. Malnutrition with hypoalbuminemia and high proteinemia. 4. Poorly controlled diabetes mellitus. 5. Status post cardiac arrest. SUGGESTIONS: 1. Continue current management. 2. The patient will need PEG tube, still awaiting family consent, otherwise close observation with peripheral hyperalimentation to follow. Yola Sim MD
[2017-03-23] MEDS: Nystatin 100,000 Units/gm Cream(15 gm) TOP SCH ×3 (11:00→18:07)
[2017-03-23] MEDS: Pantoprazole 40 mg EC Tab PO SCH ×2 (11:18→11:34)
[2017-03-23] MEDS: levETIRAcetam 100 mg/ml (5ml) Oral Syringe PO SCH ×2 (11:18→21:16)
[2017-03-23 11:43] LABS: POTASSIUM 4.3 mmol/L (3.6-5.2)
[2017-03-23 11:47] LABS: CALCIUM 8.6 mg/dl (8.6-10.4)
[2017-03-23] MEDS: Pantoprazole 40 mg Susp UD NG SCH (13:22)
--- NOTE | 2017-03-23 17:54 | CP.PCM.PN ---
Subjective - Date & Time of Evaluation Date of Evaluation: 03/23/17 Time of Evaluation: 08:00 - Subjective Subjective: high fever worsening renal function CXR neg No diarrhea cultures repeated comatose / anoxic Objective - Vital Signs/Intake and Output Vital Signs (last 24 hours): Temp Pulse Resp BP Pulse Ox 98.5 F 113 H 18 119/68 95 03/23/17 08:32 03/23/17 08:32 03/23/17 08:32 03/23/17 08:32 03/23/17 08:32 Intake and Output: 03/23/17 03/23/17 06:59 18:59 Intake Total 655 Output Total 550 200 Balance 105 -200 - Medications Medications: Current Medications Albuterol/Ipratropium (Duoneb 3 Mg/0.5 Mg (3 Ml) Ud) 3 ml INH RQ6 [facility] Last Admin: 03/23/17 13:17 Dose: 3 ml Vancomycin/Sodium Chloride (Vancomycin 1 Gm/Ns 200 Ml) 1 gm in 200 mls @ 166.7 mls/hr IVPB ONCE ONE Stop: 03/23/17 19:11 Levetiracetam (Keppra) 500 mg PO Q12 [facility] Last Admin: 03/23/17 11:18 Dose: 500 mg Nystatin (Mycostatin Cream) 0 ea TOP TID [facility] Last Admin: 03/23/17 13:23 Dose: 1 applic Pantoprazole Sodium (Protonix Susp) 40 mg NG DAILY [facility] Last Admin: 03/23/17 13:22 Dose: 40 mg Phenobarbital (Phenobarbital Tab) 97.2 mg PO Q8 [facility] Last Admin: 03/23/17 13:22 Dose: 97.2 mg Potassium Chloride (Potassium Chloride Oral Soln) 20 meq GT ONCE [facility] Last Admin: 03/09/17 13:52 Dose: 20 meq - Labs Labs: 03/19/17 06:13 03/23/17 11:24 PT 13.6 SECONDS (9.7-12.2) H 03/10/17 12:24 INR 1.2 03/10/17 12:24 APTT 32 SECONDS (21-34) 03/10/17 12:24 - Constitutional Appears: Non-toxic, Chronically Ill - Head Exam Head Exam: NORMOCEPHALIC - Eye Exam Eye Exam: PERRL. absent: Scleral icterus - ENT Exam ENT Exam: Mucous Membranes Dry - Neck Exam Neck Exam: absent: Lymphadenopathy - Respiratory Exam Respiratory Exam: Decreased Breath Sounds - Cardiovascular Exam Cardiovascular Exam: REGULAR RHYTHM - GI/Abdominal Exam GI & Abdominal Exam: Distended - Rectal Exam Rectal Exam: Deferred - Exam Exam: NORMAL INSPECTION - Extremities Exam Extremities Exam: absent: Pedal Edema - Back Exam Back Exam: absent: CVA tenderness (L), CVA tenderness (R) - Neurological Exam Neurological Exam: Altered - Skin Skin Exam: Dry Assessment and Plan (1) Cardiac arrest Status: Acute (2) Open wound of right foot with complication Status: Acute (3) Respiratory failure Status: Acute (4) Anoxic encephalopathy Status: Acute (5) Anoxic encephalopathy Status: Acute - Assessment and Plan (Free Text) Plan: recultured given stat dose Vanco IV
[2017-03-23] MEDS ORDERED: Vancomycin 1 gm/NS 200 ml 1 GM/200 ML BAG IVPB ONE (18:00)
--- NOTE | 2017-03-23 21:21 | CP.PCM.HP ---
Past Patient History - Past Medical History & Family History Past Medical History?: Yes - Past Social History Smoking Status: UNKNOWN Chewing Tobacco Use: No Cigar Use: No Alcohol: None Drugs: Denies Home Situation {Lives}: Alone - CARDIAC Hx Hypertension: Yes - PULMONARY Hx Respiratory Disorders: No - NEUROLOGICAL Hx Neurological Disorder: No - HEENT Hx HEENT Problems: No - RENAL Hx Chronic Kidney Disease: Yes Hx Renal Failure: Yes - ENDOCRINE/METABOLIC Hx Endocrine Disorders: Yes Hx Diabetes Mellitus Type 2: Yes - INTEGUMENTARY Hx Dermatological Problems: Yes - MUSCULOSKELETAL/RHEUMATOLOGICAL Hx Musculoskeletal Disorders: No - GASTROINTESTINAL Hx Gastrointestinal Disorders: No - GENITOURINARY/GYNECOLOGICAL Hx Genitourinary Disorders: No - PSYCHIATRIC Hx Substance Use: No - SURGICAL HISTORY Other/Comment: Great toe left foot amputated - ANESTHESIA Hx Anesthesia: Yes (UNABLE TO OBTAIN) Hx Anesthesia Reactions: No Meds Allergies/Adverse Reactions: Allergies Allergy/AdvReac Type Severity Reaction Status Date / Time Unobtainable Allergy Verified 03/04/17 20:17 Results - Vital Signs Recent Vital Signs: Last Vital Signs Temp 102.3 F H 03/23/17 18:08 Pulse 103 H 03/23/17 15:00 Resp 22 03/23/17 15:00 BP 130/73 03/23/17 15:00 Pulse Ox 93 L 03/23/17 15:00 - Labs Result Diagrams: 03/19/17 06:13 03/23/17 11:24 Labs: Laboratory Results - last 24 hr 03/23/17 11:24 Sodium 148 Potassium 4.3 Chloride 113 H Carbon Dioxide 24 Anion Gap 15 BUN 75 H Creatinine 4.7 H Est GFR ( Amer) 16 Est GFR (Non-Af Amer) 13 Random Glucose 318 H Calcium 8.6 Assessment & Plan (1) Anemia Status: Acute (2) CHF (congestive heart failure) Status: Acute (3) Cardiac arrest Status: Acute (4) Coagulopathy Status: Acute (5) Open wound of right foot with complication Status: Acute (6) Respiratory failure Status: Acute (7) SAUNDRA (acute kidney injury) Status: Resolved
[2017-03-24] MEDS ORDERED: Acetaminophen 650mg/20.3ml solution UD PO STA ×2 (01:30→21:37)
[2017-03-24] MEDS: Albuterol-Ipratrop 3 mg / 0.5 (3 ml) UD INH SCH ×4 (01:37→20:21)
[2017-03-24 07:40] LABS: BASO # 0.1 K/uL (0.0-0.2); BASO % 0.6 % (0.0-2.0); EOS # 0.1 K/uL (0.0-0.7); EOS % 0.7 % (0.0-4.0); HEMATOCRIT 28.6 % (35.0-51.0); LYMPH # 1.7 K/uL (1.0-4.3); LYMPH % 14.8 % (20.0-40.0); MEAN CELL VOLUME 91.9 fL (80.0-94.0); MEAN CORPUSCULAR HEMOGLOBIN 29.8 pg (27.0-31.0); MEAN CORPUSCULAR HGB CONC 32.4 g/dL (33.0-37.0); MONO # 0.6 K/uL (0.0-0.8); MONO % 4.9 % (0.0-10.0); RED CELL DISTRIBUTION WIDTH 15.7 % (11.5-14.5); WHITE BLOOD COUNT 11.2 K/uL (4.8-10.8)
[2017-03-24 07:41] LABS: POTASSIUM 4.9 mmol/L (3.6-5.2)
[2017-03-24 07:43] LABS: ALB/GLOB RATIO 0.7 (1.0-2.1); BILIRUBIN,TOTAL 0.8 mg/dL (0.2-1.3); TOTAL PROTEIN 8.3 g/dL (6.3-8.3)
[2017-03-24] MEDS: Pantoprazole 40 mg Susp UD NG SCH (10:39)
[2017-03-24] MEDS: levETIRAcetam 100 mg/ml (5ml) Oral Syringe PO SCH ×2 (10:39→21:35)
[2017-03-24] MEDS: Nystatin 100,000 Units/gm Cream(15 gm) TOP SCH ×3 (10:40→17:04)
--- NOTE | 2017-03-24 13:05 | PN ---
DATE: LOCATION: [facility]. SUBJECTIVE: This is a 52-year-old male in a state of DNR and DNI, seen and examined in rounds with reported periods of low-grade temperature on and off. Repeated urine, blood culture, as well as sputum culture is still pending. LABORATORY DATA: The most recent lab results show leukocytosis of 11.2 with low hemoglobin 9.3, low hematocrit 28.6, with normal platelet count. With increased sodium to 150, CO2 content 19 indicative of metabolic acidosis with BUN 102, creatinine 6.1, blood glucose level 203 with persistently elevated AST, ALT, as well as alkaline phosphatase most likely secondary to infectious progress with low albumin 3.3. The patient in a state of hepatic failure. PHYSICAL EXAMINATION GENERAL: Showed no significant clinical changes. VITAL SIGNS: Temperature 100.7 with heart rate of 108, respiratory rate is 26 to 28, blood pressure of 96/56 with decreased air entry bilaterally without abdominal distention. HEART: S1 and S2 positive with increased rate. No new significant clinical changes or neurological deficit. IMPRESSION: 1. Status post cardiopulmonary arrest. 2. Anemia. 3. Malnutrition with hypoalbuminemia and hypoproteinemia. 4. Abnormal liver function test most likely secondary to right side heart failure and/or septicemia or infectious process. 5. Anoxic encephalopathy. 6. Poorly controlled hypertension. SUGGESTION: 1. Continue current management with ID recommendation. 2. Due to the patient supervision, PEG insertion was offered, no legal consent so far from the family. Yola Sim MD
[2017-03-24] MEDS: (Novolin R) Insulin Human Regular 100 units/ml vial SC SCH ×2 (17:03→22:37)
--- NOTE | 2017-03-24 18:26 | CP.PCM.PN ---
Subjective - Date & Time of Evaluation Date of Evaluation: 03/24/17 Time of Evaluation: 09:20 - Subjective Subjective: clinically same Objective - Vital Signs/Intake and Output Vital Signs (last 24 hours): Temp Pulse Resp BP Pulse Ox 102.3 F H 108 H 24 90/48 L 99 03/24/17 16:00 03/24/17 16:00 03/24/17 16:00 03/24/17 16:00 03/24/17 16:00 Intake and Output: 03/24/17 03/24/17 06:59 18:59 Intake Total 530 300 Output Total 200 Balance 330 300 - Medications Medications: Current Medications Albuterol/Ipratropium (Duoneb 3 Mg/0.5 Mg (3 Ml) Ud) 3 ml INH RQ6 [facility] Last Admin: 03/24/17 13:18 Dose: 3 ml Insulin Human Regular (Novolin R) 0 unit SC ACHS [facility] PRN Reason: Protocol Last Admin: 03/24/17 17:03 Dose: 10 unit Levetiracetam (Keppra) 500 mg PO Q12 [facility] Last Admin: 03/24/17 10:39 Dose: 500 mg Nystatin (Mycostatin Cream) 0 ea TOP TID [facility] Last Admin: 03/24/17 17:04 Dose: 1 applic Pantoprazole Sodium (Protonix Susp) 40 mg NG DAILY [facility] Last Admin: 03/24/17 10:39 Dose: 40 mg Phenobarbital (Phenobarbital Tab) 97.2 mg PO Q8 [facility] Last Admin: 03/24/17 13:50 Dose: 97.2 mg - Labs Labs: 03/24/17 07:15 03/24/17 07:15 PT 13.6 SECONDS (9.7-12.2) H 03/10/17 12:24 INR 1.2 03/10/17 12:24 APTT 32 SECONDS (21-34) 03/10/17 12:24 Assessment and Plan (1) Anemia Status: Acute (2) CHF (congestive heart failure) Status: Acute (3) Cardiac arrest Status: Acute (4) Coagulopathy Status: Acute (5) Open wound of right foot with complication Status: Acute (6) Respiratory failure Status: Acute (7) SAUNDRA (acute kidney injury) Status: Resolved
[2017-03-25] MEDS: Albuterol-Ipratrop 3 mg / 0.5 (3 ml) UD INH SCH ×4 (02:03→20:21)
[2017-03-25] MEDS: (Novolin R) Insulin Human Regular 100 units/ml vial SC SCH ×4 (07:30→22:25)
--- NOTE | 2017-03-25 10:06 | PN ---
DATE: LOCATION: Room 567 SUBJECTIVE: This is a 52-year-old male seen and examined in rounds without significant clinical changes are reported. Active bleeding. Not responding to verbal or painful stimuli at times. The patient in a status of DNR and DNI. Clinically, the patient is the same. PHYSICAL EXAMINATION: VITAL SIGNS: Atrial fibrillation with pulse of 104, blood pressure of 96/58 with respiratory rate of 20 to 22. No significant other clinical changes. IMPRESSION: 1. Status post cardiopulmonary arrest. 2. Anoxic encephalopathy. 3. Acute renal failure. 4. Respiratory failure. 5. Coagulopathy. 6. Congestive heart failure by recent history. 7. Anemia. 8. Malnutrition. 9. Hypoalbuminemia. 10. Poorly controlled hypertension. 11. Lower extremities open ulceration with septicemia at some point before. SUGGESTIONS: 1. Agree with your plan. 2. Conservative treatment. 3. No aggressive GI workup at this point as per the family request. Yola Sim MD cc: Yola Sim MD
[2017-03-25] MEDS: Pantoprazole 40 mg Susp UD NG SCH (10:48)
[2017-03-25] MEDS: levETIRAcetam 100 mg/ml (5ml) Oral Syringe PO SCH ×2 (10:48→22:25)
[2017-03-25] MEDS: Nystatin 100,000 Units/gm Cream(15 gm) TOP SCH ×3 (10:52→18:00)
--- NOTE | 2017-03-25 13:50 | CP.PCM.PN ---
Subjective - Date & Time of Evaluation Date of Evaluation: 03/25/17 Time of Evaluation: 09:20 - Subjective Subjective: clinically same Objective - Vital Signs/Intake and Output Vital Signs (last 24 hours): Temp Pulse Resp BP Pulse Ox 98.5 F 109 H 20 100/55 L 100 03/24/17 23:40 03/24/17 23:40 03/24/17 23:40 03/24/17 23:40 03/24/17 23:40 Intake and Output: 03/25/17 03/25/17 06:59 18:59 Intake Total 760 Output Total 200 Balance 560 - Medications Medications: Current Medications Albuterol/Ipratropium (Duoneb 3 Mg/0.5 Mg (3 Ml) Ud) 3 ml INH RQ6 [facility] Last Admin: 03/25/17 13:14 Dose: 3 ml Insulin Human Regular (Novolin R) 0 unit SC ACHS TENA PRN Reason: Protocol Last Admin: 03/25/17 07:30 Dose: 3 unit Levetiracetam (Keppra) 500 mg PO Q12 [facility] Last Admin: 03/25/17 10:48 Dose: 500 mg Nystatin (Mycostatin Cream) 0 ea TOP TID [facility] Last Admin: 03/25/17 10:52 Dose: 1 applic Pantoprazole Sodium (Protonix Susp) 40 mg NG DAILY [facility] Last Admin: 03/25/17 10:48 Dose: 40 mg Phenobarbital (Phenobarbital Tab) 97.2 mg PO Q8 [facility] Last Admin: 03/25/17 05:08 Dose: 97.2 mg - Labs Labs: 03/24/17 07:15 03/24/17 07:15 PT 13.6 SECONDS (9.7-12.2) H 03/10/17 12:24 INR 1.2 03/10/17 12:24 APTT 32 SECONDS (21-34) 03/10/17 12:24 - Constitutional Appears: Well - Head Exam Head Exam: ATRAUMATIC, NORMAL INSPECTION, NORMOCEPHALIC - Eye Exam Eye Exam: EOMI, Normal appearance, PERRL Pupil Exam: NORMAL ACCOMODATION, PERRL - ENT Exam ENT Exam: Mucous Membranes Moist, Normal Exam - Neck Exam Neck Exam: Full ROM, Normal Inspection. absent: Lymphadenopathy - Respiratory Exam Respiratory Exam: Decreased Breath Sounds - Cardiovascular Exam Cardiovascular Exam: REGULAR RHYTHM, +S1, +S2 - GI/Abdominal Exam GI & Abdominal Exam: Soft, Diminished Bowel Sounds - Rectal Exam Rectal Exam: Deferred Assessment and Plan (1) Anemia Status: Acute (2) CHF (congestive heart failure) Status: Acute (3) Cardiac arrest Status: Acute (4) Coagulopathy Status: Acute (5) Open wound of right foot with complication Status: Acute (6) Respiratory failure Status: Acute (7) SAUNDRA (acute kidney injury) Status: Resolved
--- NOTE | 2017-03-25 15:59 | CP.PCM.PN ---
Subjective - Date & Time of Evaluation Date of Evaluation: 03/25/17 Time of Evaluation: 08:00 - Subjective Subjective: fever + unresponsive given vanco poor prognosis may be central fever Objective - Vital Signs/Intake and Output Vital Signs (last 24 hours): Temp Pulse Resp BP Pulse Ox 102.8 F H 123 H 44 H 94/54 L 97 03/25/17 15:34 03/25/17 15:34 03/25/17 15:34 03/25/17 15:34 03/25/17 15:34 Intake and Output: 03/25/17 03/25/17 06:59 18:59 Intake Total 760 Output Total 200 Balance 560 - Medications Medications: Current Medications Albuterol/Ipratropium (Duoneb 3 Mg/0.5 Mg (3 Ml) Ud) 3 ml INH RQ6 [facility] Last Admin: 03/25/17 13:14 Dose: 3 ml Insulin Human Regular (Novolin R) 0 unit SC ACHS [facility] PRN Reason: Protocol Last Admin: 03/25/17 11:30 Dose: 3 unit Levetiracetam (Keppra) 500 mg PO Q12 [facility] Last Admin: 03/25/17 10:48 Dose: 500 mg Nystatin (Mycostatin Cream) 0 ea TOP TID [facility] Last Admin: 03/25/17 14:36 Dose: 1 applic Pantoprazole Sodium (Protonix Susp) 40 mg NG DAILY [facility] Last Admin: 03/25/17 10:48 Dose: 40 mg Phenobarbital (Phenobarbital Tab) 97.2 mg PO Q8 [facility] Last Admin: 03/25/17 14:38 Dose: 97.2 mg - Labs Labs: 03/24/17 07:15 03/24/17 07:15 PT 13.6 SECONDS (9.7-12.2) H 03/10/17 12:24 INR 1.2 03/10/17 12:24 APTT 32 SECONDS (21-34) 03/10/17 12:24 - Constitutional Appears: Non-toxic - Head Exam Head Exam: NORMOCEPHALIC - Eye Exam Eye Exam: PERRL - ENT Exam ENT Exam: Mucous Membranes Dry - Neck Exam Neck Exam: absent: Lymphadenopathy - Respiratory Exam Respiratory Exam: Decreased Breath Sounds - Cardiovascular Exam Cardiovascular Exam: REGULAR RHYTHM - GI/Abdominal Exam GI & Abdominal Exam: Distended - Rectal Exam Rectal Exam: Deferred - Extremities Exam Extremities Exam: absent: Pedal Edema - Neurological Exam Neurological Exam: Altered Assessment and Plan (1) Cardiac arrest Status: Acute (2) Open wound of right foot with complication Status: Acute (3) Respiratory failure Status: Acute (4) Anoxic encephalopathy Status: Acute (5) Anoxic encephalopathy Status: Acute - Assessment and Plan (Free Text) Assessment: coma s/p cardiac arrest fever likely central cont supportive care
[2017-03-25] MEDS ORDERED: Vancomycin 1 gm/NS 200 ml 1 GM/200 ML BAG IVPB STA (16:01)
[2017-03-25] MEDS ORDERED: Amikacin 500 MG in Dextrose 5% In Water 100 ML IVPB STA (16:05)
[2017-03-26 01:27] VITALS: TEMP 99.8
[2017-03-26 01:29] VITALS: BP 94/55; PULSE 120; RESP 22; O2SAT 98
[2017-03-26] MEDS: Albuterol-Ipratrop 3 mg / 0.5 (3 ml) UD INH SCH ×2 (04:00→07:16)
--- NOTE | 2017-03-26 07:07 | CP.PCM.PRO ---
Pronouncement of Note - Clinical Findings Physical Exam: No Response Verbal/Painful Stimuli, Absent Peripheral Pulses{ Carotid & Femoral}, Absent Heart & Breath Sounds, No Pupillary Light Reflex, No Corneal Reflex, Pupils Fixed & Dilated, Absence of Vital Signs - Pronouncement Time Time of Pronouncement of : 06:30 - Notifications Pronouncement Notifications: Family Notified (Next of kin and person to notify informed), [place] [id number]
--- NOTE | 2017-03-26 09:57 | PN ---
DATE: SUBJECTIVE: This is a 52-year-old male status post cardiopulmonary arrest in a state of DNR and DNI seen in rounds today without significant clinical changes, nonresponsive to verbal stimuli, but very occasionally to touch. The entire chart is reviewed including, but not limited to the most recent lab and the radiology study results, current and previous medication list, and current and the previous medical events. The latest blood glucose level was 298. PHYSICAL EXAMINATION GENERAL: A 52-year-old male. VITAL SIGNS: Afebrile with heart rate of 108, and respiratory rate of 20 to 22, with blood pressure of 116/66. HEENT: Showed pale dry oral mucous membrane. Nonicteric sclerae. LUNGS: Few scattered crepitation. Decreased air entry at bases. HEART: Positive S1 and S2. ABDOMEN: Soft. Bowel sounds are present. No masses or organomegaly. EXTREMITIES: Without significant clubbing, cyanosis, or edema. NEUROLOGIC: No reported neurological deficits, sensory or motor. No new focal deficits. IMPRESSION: 1. Anoxic encephalopathy. 2. Respiratory insufficiency. 3. Poorly controlled diabetes mellitus. 4. Status post cardiac arrest. 5. Malnutrition with hypoalbuminemia. SUGGESTIONS: 1. Continue supportive treatment. 2. Peripheral hyperalimentation. 3. Family so far refusing PEG insertion. Yola Sim MD cc: Yola Sim MD
--- NOTE | 2017-03-26 12:45 | PN ---
DATE: LOCATION: [facility]. SUBJECTIVE: This 52 years old male in a status of DNR and DNI, seen and examined in rounds without significant clinical changes or reported active bleeding as per yesterday. I went to see the patient today, but apparently patient was pronounced earlier. No further action at this point. Yola Sim MD cc: Yola Sim MD
== END 2017-03-26 06:30 | DRG 584 ==
LOC: C.ER 19:39 → EDBD 19:39 → C.9I 21:35 → C.5S 03-22 10:46
PROVIDERS: ADMIT Internal Medicine Nephrology; ATTEND Internal Medicine Nephrology
PROC: 5A1955Z Respiratory Ventilation, Greater than 96 Consecutive Hours (ICD-10-PCS; principal; 2017-03-04)
PROC: 06HM33Z Insertion of Infusion Device into Right Femoral Vein, Percutaneous Approach (ICD-10-PCS; 2017-03-04)
PROC: 5A12012 Performance of Cardiac Output, Single, Manual (ICD-10-PCS; 2017-03-04)
PROC: 30233N1 Transfusion of Nonautologous Red Blood Cells into Peripheral Vein, Percutaneous Approach (ICD-10-PCS; 2017-03-04)
DX: A41.9 Sepsis, unspecified organism (principal); G93.1 Anoxic brain damage, not elsewhere classified; I46.9 Cardiac arrest, cause unspecified; G93.6 Cerebral edema; J96.91 Respiratory failure, unspecified with hypoxia; N17.0 Acute kidney failure with tubular necrosis; J18.9 Pneumonia, unspecified organism; R65.21 Severe sepsis with septic shock; D68.9 Coagulation defect, unspecified; T87.43 Infection of amputation stump, right lower extremity; E46 Unspecified protein-calorie malnutrition; I13.0 Hypertensive heart and chronic kidney disease with heart failure and stage 1 through stage 4 chronic kidney disease, or unspecified chronic kidney disease; I50.9 Heart failure, unspecified; E87.2 Acidosis; E11.22 Type 2 diabetes mellitus with diabetic chronic kidney disease; E11.51 Type 2 diabetes mellitus with diabetic peripheral angiopathy without gangrene; E11.621 Type 2 diabetes mellitus with foot ulcer; E87.5 Hyperkalemia; L97.519 Non-pressure chronic ulcer of other part of right foot with unspecified severity; N18.9 Chronic kidney disease, unspecified; I45.9 Conduction disorder, unspecified; D63.1 Anemia in chronic kidney disease; G40.901 Epilepsy, unspecified, not intractable, with status epilepticus; Z89.412 Acquired absence of left great toe; Z89.411 Acquired absence of right great toe; E11.65 Type 2 diabetes mellitus with hyperglycemia; D69.6 Thrombocytopenia, unspecified; E77.8 Other disorders of glycoprotein metabolism; K75.9 Inflammatory liver disease, unspecified; E78.5 Hyperlipidemia, unspecified; Z51.5 Encounter for palliative care; Z66 Do not resuscitate; R13.10 Dysphagia, unspecified; Z79.899 Other long term (current) drug therapy